=== PATIENT | female | born 1995 | race Caucasian/White ===

== ENCOUNTER → 2017-08-01 13:30 | Outpatient (CLI) | payer MEDICAID, SELFPAY ==
--- NOTE | 2017-08-01 13:30 | DT_ITS ---
This patient was seen during an EMR downtime July 31, 2017 - August 07, 2017. This patient may have a combination of paper and electronic documentation or all paper documentation. All documentation is viewable within the e-chart portion of [facility] for each patient visit.
--- NOTE | 2017-08-01 13:30 | DT_ITS ---
This patient was seen during an EMR downtime July 31, 2017 - August 07, 2017. This patient may have a combination of paper and electronic documentation or all paper documentation. All documentation is viewable within the e-chart portion of [facility] for each patient visit.
[2017-08-06 11:50] LABS: Chlamydia Trachomatis by PCR Negative (Negative); Neisserai gonorrhoeae by PCR Negative (Negative); Probe Check PASS; Sample Adequacy Control PASS; Specimen Processing Control PASS
== END ==
PROVIDERS: Visit Provider Obstetrics & Gynecology
DX: Z34.81 Encounter for supervision of other normal pregnancy, first trimester (principal)
CPT/HCPCS: 87491; 87591

== ENCOUNTER → 2017-08-10 07:52 | Outpatient (CLI) | payer MEDICAID, SELFPAY ==
--- NOTE | 2017-08-10 07:58 | US_ITS ---
STUDY: FIRST TRIMESTER OBSTETRICAL ULTRASOUND REASON FOR EXAM: Female, 22 years old. dating. LMP: June 01, 2017. TECHNIQUE: Transabdominal and Transvaginal PRIOR ULTRASOUND: None. FINDINGS: There is visualization of a single gestational sac in a normal intrauterine position. The mean sac diameter (MSD) measures 4.24 cm, indicating an estimated gestational age (EGA) of 10 weeks, 0 days. The gestational sac shape is within normal limits. There is a visualized yolk sac. The yolk sac measures 4 mm.. The placenta is non-visualized. There is visualization of a live embryo. The crown-rump length (CRL) measures 3.26 cm, indicating an estimated gestational age (EGA) of 10 weeks, 2 days. There is demonstrated cardiac activity with a heart rate of 179 bpm. The estimated gestation age (EGA) by LMP is 10 weeks, 0 days. The estimated date of delivery (CODY) by LMP is March 08, 2017. The estimated gestation age (EGA) by US is 10 weeks, 1 days. The estimated date of delivery (CODY) by US is March 07, 2017. The uterus measures 11.9 cm x 10.8 cm x 8.0 cm. I suspect a 4.1 cm x 5 cm x 3.4 cm fibroid in the uterine fundus. The cervix is closed. The right ovary measures 3.1 cm x 2.2 cm x 2.1 cm. There is no right ovarian cyst. There is no visualized right adnexal mass or complex lesion. The left ovary measures 2.5 cm x 1.9 cm x 2.2 cm.. There is no left ovarian cyst. There is no visualized left adnexal mass or complex lesion. There is no fluid in the cul de sac. US/Init OB < 14Wks US IMPRESSION: Single live intrauterine gestation with mean gestational age of 10 weeks and 1 day. Possible fibroid in the uterine fundus. Electronically Signed: Antelmo Woods MD at 11:43 EDT Tel [phone], Service support ,
== END ==
PROVIDERS: Visit Provider Obstetrics & Gynecology
DX: Z34.81 Encounter for supervision of other normal pregnancy, first trimester (principal)
CPT/HCPCS: 76801

== ENCOUNTER → 2017-08-29 14:57 | Outpatient (CLI) | payer MEDICAID, SELFPAY ==
[2017-08-29 17:46] LABS: Absolute Lymphocyte Count 1.93 X10^3/ul (0.83-4.51); Absolute Neutrophil Count 6.5 X10^3/uL (2.0-7.7); Basophil# 0.02 X10^3/uL; Basophil% 0.2 % (0-1); Eosinophil# 0.05 X10^3/uL; Eosinophils% 0.6 % (0-5); Hematocrit 40.2 % (37-47); Hemoglobin 13.1 g/dl (12.0-15.0); Lymphocyte # 1.93 X10^3/ul (4.0); Lymphocyte % 21.7 % (19-41); Mean Corp Hgb Conc 32.6 g/gl (32-36); Mean Corpuscular Hgb 28.6 pg (27.0-32.0); Mean Corpuscular Volume 87.8 fL (81-99); Mean Platelet Vol. 10.7 fl (6.2-12.0); Monocyte# 0.44 X10^3/uL; Monocyte% 4.9 % (0-10); Neutrophil # 6.46 X10^3/uL (2.7-7.7); Neutrophil % 72.5 % (47-70); Platelet Count 256 K/mm3 (150-450); RBC Distribution Width CV 15.2 % (11.6-14.6); RBC Distribution Width SD 49.1 fl (35.1-43.9); Red Blood Count 4.58 M/mm3 (4.2-5.4); White Blood Count 8.9 K/mm3 (4.4-11.0)
[2017-08-29 17:48] LABS: POSITIVE COUNT NO; POSITIVE DIFFERENTIAL NO; POSITIVE MORPHOLOGY NO
[2017-08-29 17:50] LABS: Color, Urine Straw (Yellow); Glucose, Dipstick Normal (Normal); Ketone-Dipstick 50 mg/dl (Negative); Leukocyte Esterase-Dipstick Negative /ul (Negative); Nitrite-Dipstick Negative (Negative); Occult Blood-Urine Negative /ul (Negative); Protein-Dipstick Negative (Negative); Specific Gravity, Urine 1.015 (1.002-1.030); Urine Bilirubin Dipstick Negative (Negative); Urine Clarity Clear (Clear); Urine Urobilinogen Normal (Normal)
[2017-08-29 17:56] LABS: COTININE Drug Screen Negative (<200 ng/mL)
[2017-08-29 18:04] LABS: Thyroid Stim Hormone (TSH) 0.29 uIU/mL (0.358-3.74)
[2017-08-29 18:10] LABS: Amphetamine Urine VISTA NEGATIVE (<1000 ng/mL); Barbiturate Urine VISTA NEGATIVE (< 200 ng/mL); Benzodiazepine Urine VISTA NEGATIVE (< 200 ng/mL); Cocaine Urine VISTA NEGATIVE (< 300 ng/mL); Ecstacy Urine VISTA NEGATIVE (< 500 ng/mL); Methadone Urine VISTA NEGATIVE (< 300 ng/mL); PCP Urine VISTA NEGATIVE (< 25 ng/mL); THC Urine VISTA NEGATIVE (< 50 ng/mL); Vista UDS pH Range 6
[2017-08-30 10:32] LABS: HIV - WCH Non-Reactive (Nonreactive); Rubella IgG 77.3 IU/mL; Vitamin D,25 Hydroxy 21.5 ng/mL (29.95-100.01)
[2017-09-01 05:02] LABS: Prenatal RPR NONREACTIVE (NONREACTIVE)
[2017-09-01 11:57] LABS: HEPATITIS B SURFACE AG Negative (Negative); Hep C Antibodies <0.1 s/co ratio (0.0-0.9)
[2017-09-01 14:42] LABS: Free T3 2.8 pg/mL (2.18-3.98); T4 Free Direct 1.24 ng/dL (0.76-1.46)
== END ==
PROVIDERS: Visit Provider Obstetrics & Gynecology
DX: Z34.81 Encounter for supervision of other normal pregnancy, first trimester (principal)
CPT/HCPCS: 36415; 80307; 81002; 82306; 84439; 84443; 84481; 85025; 86703; 86762; 86803; 87340

== ENCOUNTER → 2017-09-26 14:42 | Outpatient (CLI) | payer MEDICAID, SELFPAY ==
[2017-10-01 03:06] LABS: AFP MoM Value 1.35 (.); AFP Value-EIA 52.2 ng/mL (.); Comment Report (.); DIA MoM Value 0.27 (.); DIA Value-EIA 48.42 pg/mL (.); DSR (By Age) 1088 (.); DSR (Second Trimester) 10000 (.); Gestat. Age Based On As provided (.); Gestational Age 16.7 WEEKS (.); Insulin Dep Diabetes No (.); Maternal Age At EDD 23.5 yr (.); hCG MoM 0.66 (.); hCG Value 23625 mIU/mL (.)
== END ==
PROVIDERS: Visit Provider Obstetrics & Gynecology
DX: Z34.82 Encounter for supervision of other normal pregnancy, second trimester (principal)
CPT/HCPCS: 36415; 82105; 82677; 84702; 86336

== ENCOUNTER → 2017-12-19 13:21 | Outpatient (CLI) | payer MEDICAID, SELFPAY ==
[2017-12-19 13:54] LABS: Hematocrit 35.2 % (37-47); Hemoglobin 11.5 g/dl (12.0-15.0); Mean Corp Hgb Conc 32.7 g/gl (32-36); Mean Corpuscular Hgb 31.3 pg (27.0-32.0); Mean Corpuscular Volume 95.9 fL (81-99); Mean Platelet Vol. 11.5 fl (6.2-12.0); Platelet Count 182 K/mm3 (150-450); RBC Distribution Width CV 13.6 % (11.6-14.6); RBC Distribution Width SD 45.1 fl (35.1-43.9); Red Blood Count 3.67 M/mm3 (4.2-5.4); White Blood Count 9.3 K/mm3 (4.4-11.0)
[2017-12-19 13:55] LABS: Glucose Challenge Gest 1H 50g 65 mg/dL (70-140); Scan Indicated on CBC? Y/N NO
== END ==
PROVIDERS: Visit Provider Obstetrics & Gynecology
DX: Z34.83 Encounter for supervision of other normal pregnancy, third trimester (principal)
CPT/HCPCS: 82950; 85027

== ENCOUNTER → 2018-02-13 15:41 | Outpatient (CLI) | payer MEDICAID, SELFPAY ==
--- OUTSIDE RECORDS SUMMARY | 2018-05-18 04:46 | XMS RPT_ITS ---
:1995 Author Organization OHIP Care Team Providers Name Role Phone Caterina Oconnor Attending Unavailable Lucas Hooper Referring Unavailable Lucas Hooper Primary Care Unavailable NegreteIgorsummer Attending Unavailable NegreteDafne, Summer Admitting Unavailable Pj Summer Attending Unavailable Pj, Summer Referring Unavailable Primay Care Physicia, No Primary Care Unavailable Pj, Krystyna Attending Unavailable Pj, Summer Referring Unavailable Pj Summer Attending Unavailable Pj Summer Attending Unavailable Neel Ballard Attending Unavailable Primay Care Physicia, No Primary Care Unavailable Neel Ballard Admitting Unavailable Shruthi Aguirre Attending Unavailable Pj Summer Attending Unavailable PROBLEMS PROBLEMS DATE TYPE CONDITION / CODE ATTENDING STATUS SOURCE 02/13/2018 Unknown Z36.85 - Encounter Pj Active [place] for [facility] screening for Hospital Streptococcus B / Repository Z36.85(ICD-10) 12/19/2017 Unknown Z34.83 - Encounter Pj Active [place] for supervision of [facility] other normal Hospital , third Repository trimester / Z34.83(ICD-10) 09/26/2017 Unknown Z34.82 - Encounter Shrutih Aguirre Active [place] for supervision of [facility] , second Repository trimester / Z34.82(ICD-10) 08/29/2017 Unknown Z34.81 - Encounter Pj Active [place] for supervision of [facility] normal Hospital , first Repository trimester / Z34.81(ICD-10) 06/10/2017 Admitting Otitis media, Day, Caterina Active [employer] [employer] [employer] Diagnosis unspecified, left System ear / Repository H66.92(ICD-10) 06/10/2017 Admitting Acute upper Day, [facility] Active [employer] Diagnosis respiratory System infection, Repository unspecified / J06.9(ICD-10) 06/10/2017 Admitting Otalgia, left ear / Day, [facility] Active [facility] Tech Diagnosis H92.02(ICD-10) System Repository PROCEDURES PROCEDURES No Procedure Records FoundRESULTS RESULTS DISCHARGE INSTRUCTION Observed: 03/03/2018 Status: F Source: [place] 1:33 PM [facility] REPOSITORY [facility] Medical Records Department [address] [place] [address] Instructions for Home/Discharge Instructions 03/03/18 1332 MR#: [id number] Acct: [id number] Name: VESTA HERNANDEZ Rep #: [id number] : 1995 22 From: Neel Ballard MD PCP: Care Physician, No Primary Status: ADM IN Discharge Diet: No Restrictions Discharge Activity: May Shower, May Take a Tub Bath May resume sexual activity in: 4-6 weeks Additional Activity Instructions:: Nothing in the vagina for 4-6 weeks. You may return to work/school in 6 weeks. Call your doctor if you observe: Fever of 101 or Higher, Inability to urinate, Inability to have a bowel movement, Using more than one pad per hour Additional Instructions: If you experience any of the following, contact your healthcare provider. * Bleeding that soaks a pad every hour for 2 hours * Unrelieved incision or abdominal pain * Swelling, redness, discharge or bleeding from your incision or episiotomy site * Your incision begins to separate * Problems urinating (including inability to urinate or burning while urinating). * Visual changes * Severe headache * Flu-like symptoms * Pain or redness in one of both of your breasts * Pain, warmth, tenderness or swelling in your legs, especially the calf area * Frequent nausea and vomiting * Symptoms of depression or anxiety If you experience any of the following, call 911 or go to the nearest Emergency Room. * Chest pain * Problems breathing * Seizure activity * Partial or complete paralysis of a body part, slurred speech, weakness or drooping of the face, or a sudden inability to walk or hold your balance Allergies/Adverse Reactions: Allergies No Known Allergies Allergy (Verified 03/03/18 06:56) Medications to take at Discharge Tablet 1 tab PO DAILY 03/03/18 Please Follow Up With: Krystyna Oliva MD - [phone] When: Call to make an appointment with your doctor in 6 weeks. Primary Care Physician: Care Physician,No Primary [Primary Care Provider] - Test Results: Test results from this visit will be discussed in further detail at your follow-up appointment, if applicable. 03/03/18 1333 <Electronically signed by Neel Ballard MD> Date Neel Ballard MD CC: No Primary Care Physician Signed OPERATIVE REPORT Observed: 03/03/2018 Status: F Source: [place] 1:32 PM [facility] REPOSITORY [facility] Medical Records Department [address] [place] [address] [place] [address] Operative Report 03/03/18 1328 MR#: [id number] Acct: [id number] Name: VESTA HERNANDEZ Rep #: [id number] : 1995 22 From: Neel Ballard MD PCP: Care Physician, No Primary Status: ADM IN Y Location: [place] [address] Vaginal Delivery Maternal Presentation: Active Labor Amniotic Membrane Rupture Type: Artificial Amniotic Fluid Description: Clear Final CODY: 03/08/18 Final CODY Source: US <20 weeks Gestational age: 39 Weeks and 2 Days Date of Procedure: 03/03/18 Pre-Operative Diagnosis: IUP Post-Operative Diagnosis: IUP Surgery/ Procedure Performed: Spontaneous Vaginal Delivery Anesthesiologist: Lokesh Ballard Type of Anesthesia: Epidural Description of Procedure: Spontaneous vaginal delivery of a viable male with Apgars of 9/9 from an occiput anterior presentation with 3 vessel cord with velamentous insertion and true knot in the cord. No episiotomy or laceration. Banjo curette used to remove small amount of retained membranous tissue. Sponge counts okay. Delivery physician: Neel Ballard MD. Presentation: Vertex Placental Delivery Description: Spontaneous, Retained, Curettage Placenta Disposition: [facility] Cord Vessel Description: 3 Vessels Cord Gases drawn per routine: ABG Cord Entanglement: None, True Knot(s) - x 1; villamenrous insertion noted Estimated Blood Loss: 250 cc A gender: Male (1 minute): 9 (5 minute): 9 Episiotomy Description: None Laceration: None Medications given after delivery: IV Pitocin Complications: None 03/03/18 1332 <Electronically signed by Neel Ballard MD> Date Neel Ballard MD CC: No Primary Care Physician; Neel Ballard MD Signed CBC-COMPLETE BLOOD CNT Collected: 03/03/2018 Status: F Source: [place] NO DIFF 7:50 AM [facility] REPOSITORY TYPE CODE TESTS RESULT OUT OF RANGE REFERENCE UNITS LAB L100.1000 4.4-11.0 K/mm3 High WBC 13.4 LAB L100.1200 4.2-5.4 M/mm3 Low RBC 3.84 LAB L100.1300 12.0-15.0 g/dl Low HGB 11.8 LAB L100.1400 37-47 % Low HCT 35.2 LAB L100.1500 81-99 fL Normal MCV 91.7 LAB L100.1600 27.0-32.0 pg Normal MCH 30.7 LAB L100.1700 32-36 g/gl Normal MCHC 33.5 LAB L100.1810 11.6-14.6 % Normal RDW CV 14.4 LAB L100.1820 35.1-43.9 fl High RDW SD 48.1 LAB L100.1900 150-450 K/mm3 Normal PLT 172 LAB L100.2000 6.2-12.0 fl Normal MPV 10.9 Performed By: #### L100.0500 #### [facility] [address] [place], [address] TYPE AND SCREEN Collected: 03/03/2018 Status: F Source: [place] 7:50 AM [facility] REPOSITORY Order Comment: Reason for Type AND Screen/Red Cells: ROUTINE TYPE CODE TESTS RESULT OUT OF RANGE REFERENCE UNITS LAB B10.0800 O Normal BLOOD TYPE GEL POSITIVE LAB B100.4000 Normal Antibody NEGATIVE Screen Performed By: #### B101.7450 #### [facility] [address] [facility] [place], [address] Observed: 02/13/2018 Status: F Source: [place] CULTURE, GROUP B 11:00 AM [facility] STREPTOCOCCUS REPOSITORY Comments: VAGINAL/RECTAL BECK Culture Group B Beta Streptococcus is not isolated. Performed By: #### M100.1800 #### [facility] [address] [place], [address] GLUCOSE CHALLENGE GEST Collected: 12/19/2017 Status: F Source: [place] 1H 50G 11:05 AM [facility] REPOSITORY TYPE CODE TESTS RESULT OUT OF RANGE REFERENCE UNITS LAB L501.0250 70-140 mg/dL Low GLU GEST 65 50g 1H Performed By: #### L501.0250 #### [facility] [address] [place], [place], [address] CBC-COMPLETE BLOOD CNT Collected: 12/19/2017 Status: F Source: [place] NO DIFF 11:05 AM [facility] REPOSITORY TYPE CODE TESTS RESULT OUT OF RANGE REFERENCE UNITS LAB L100.1000 4.4-11.0 K/mm3 Normal WBC 9.3 LAB L100.1200 4.2-5.4 M/mm3 Low RBC 3.67 LAB L100.1300 12.0-15.0 g/dl Low HGB 11.5 LAB L100.1400 37-47 % Low HCT 35.2 LAB L100.1500 81-99 fL Normal MCV 95.9 LAB L100.1600 27.0-32.0 pg Normal MCH 31.3 LAB L100.1700 32-36 g/gl Normal MCHC 32.7 LAB L100.1810 11.6-14.6 % Normal RDW CV 13.6 LAB L100.1820 35.1-43.9 fl High RDW SD 45.1 LAB L100.1900 150-450 K/mm3 Normal PLT 182 LAB L100.2000 6.2-12.0 fl Normal MPV 11.5 Performed By: #### L100.0500 #### [facility] [address] [place], [place], [address] AFP TETRA QUAD Collected: 09/26/2017 Status: F Source: [place] SCREEN 2:43 PM [facility] REPOSITORY Order Comment: Is Patient ? Y Enter Completed Weeks of Gestation: 16.5 Patient's Weight (LBS.): 135 Race: / White Number of Fetuses: 1 Is Patient Insulin-Dependent Diabetic?: N TYPE CODE TESTS RESULT OUT OF REFERENCE UNITS RANGE LAB L3290.110 . 0 TEST RESULTS: Normal *Screen Negative* LAB L3290.120 . WEEKS 0 GESTATIONAL AGE Normal 16.7 LAB L3290.130 . 0 GEST AGE FROM As Normal provided LAB L3290.140 . yr 1 MATRNL AGE @CODY Normal 23.5 LAB L3290.150 . 0 RACE Normal LAB L3290.160 . lbs 0 WEIGHT Normal 135 LAB L3290.170 . 0 INS DEP DIABETE No Normal LAB L3290.180 . 0 MULT GESTATION No Normal LAB L3290.190 . ng/mL 0 AFP VALUE-EIA Normal 52.2 LAB L3290.200 . 0 AFP MOM VALUE Normal 1.35 LAB L3290.210 . mIU/mL 0 HCG VALUE Normal 75834 LAB L3290.220 . 0 HCG MOM Normal 0.66 LAB L3290.230 . ng/mL 0 UE3 VALUE Normal 1.14 LAB L3290.240 . 0 UE3 MOM Normal 1.20 LAB L3290.250 . pg/mL 0 NIVIA VALUE-EIA Normal 48.42 LAB L3290.260 . 0 NIVIA MOM VALUE Normal 0.27 LAB L3290.270 . 0 OSBR RISK Normal 4151 LAB L3290.280 . 0 DSR 2ND TRIMEST Normal 43120 LAB L3290.290 . 0 DSR (BY AGE) Normal 1088 LAB L3290.310 . 0 T18 RISK Normal Not increased LAB L3290.320 . 0 T18 (BY AGE) Normal 1:4238 LAB L3290.330 . 0 INTERPRETATION Normal Comment Result Comment: Interpretation: Screen Negative This result is screen negative for OSB, Down Syndrome and Trisomy 18. The AFP MoM and patient specific risks calculated are based on the gestational age and the clinical information provided. This test can identify up to 80% of open neural tube defects. Closed neural tube defects and some open defects may not be detected by this test. The combination of maternal age, AFP, hCG, uE3, and NIVIA identifies 75-80% of Down Syndrome. The combination of maternal age, AFP, hCG and uE3 identifies 60% of Trisomy 18 pregnancies. The [employer] recommends amniocentesis be offered to women age 35 and older. Recalculations are not recommended when gestational dating by LMP and ultrasound are within 10 days. Performed By: #### L3290.0100 #### [facility] (refer to report for specific site) refer to report for address and phone number URINE DRUG SCREEN Collected: 08/29/2017 Status: F Source: [place] (VISTA) 3:05 PM [facility] REPOSITORY Order Comment: List of Drugs Taken or Suspected? UNK TYPE CODE TESTS RESULT OUT OF RANGE REFERENCE UNITS LAB L505.0075 TO BE Normal CONFIRMED Result Comment: CONFIRMATORY TESTING FOR ALL POSITIVE URINE DRUG SCREEN RESULTS WILL ONLY BE SENT OUT UPON PHYSICIAN ORDER. VISTA Urine Drug Screen methods provide only preliminary analytical test results. A more specific alternate chemical method must be used in order to obtain a confirmed analytical result. Gas chromatography/mass spectrometery (GC/MS) is the preferred confirmatory method. Clinical consideration and professional judgement should be applied to any drug of abuse test result, particularly when preliminary positive results are used. URINE TCA TESTING MUST BE ORDERED SEPARATELY. USE TEST MNEMONIC: [facility] LAB L505.5005 VISTA UDS PH 6 Normal LAB L505.5015 <1000 ng/mL AMPHETAMINES Normal NEGATIVE LAB L505.5025 < 200 ng/mL BARBITIURATES Normal NEGATIVE LAB L505.5035 < 200 ng/mL BENZODIAZIPINE Normal NEGATIVE LAB L505.5045 < 300 ng/mL COCAINE Normal NEGATIVE LAB L505.5055 < 500 ng/mL ECSTACY Normal NEGATIVE LAB L505.5065 < 300 ng/mL METHADONE Normal NEGATIVE LAB L505.5075 < 300 ng/mL OPIATES Normal NEGATIVE LAB L505.5085 < 25 ng/mL PCP Normal NEGATIVE LAB L505.5095 < 50 ng/mL THC Normal NEGATIVE Performed By: #### L505.5000, L505.6240 #### [facility] [address] [place], [place], [id number] NICOTINE URINE DRUG Collected: 08/29/2017 Status: F Source: [place] SCREEN 3:05 PM [facility] REPOSITORY Order Comment: List of Drugs Taken or Suspected? UNK TYPE CODE TESTS RESULT OUT OF RANGE REFERENCE UNITS LAB L505.6250 TO BE Normal CONFIRMED Result Comment: CONFIRMATORY TESTING FOR ALL POSITIVE URINE DRUG SCREEN RESULTS WILL ONLY BE SENT OUT UPON PHYSICIAN ORDER. The results of Urine Drug Screen methods provide only preliminary analytical test results. A more specific alternate chemical method must be used in order to obtain a confirmed analytical result. Gas chromatography/mass spectrometery (GC/MS) is the preferred confirmatory method. Clinical consideration and professional judgement should be applied to any drug of abuse test result, particularly when preliminary positive results are used. LAB L505.6270 <200 ng/mL Normal COT DRG Negative SCREEN Result Comment: Cotinine is the first-stage metabolite of Nicotine. Performed By: #### L505.5000, L505.6240 #### [facility] [address] [place], [place], [address] CBC W/DIFF, AUTOMATED Collected: 08/29/2017 Status: F Source: [place] 3:05 PM [facility] REPOSITORY TYPE CODE TESTS RESULT OUT OF RANGE REFERENCE UNITS LAB L100.1000 4.4-11.0 K/mm3 Normal WBC 8.9 LAB L100.1200 4.2-5.4 M/mm3 Normal RBC 4.58 LAB L100.1300 12.0-15.0 g/dl Normal HGB 13.1 LAB L100.1400 37-47 % Normal HCT 40.2 LAB L100.1500 81-99 fL Normal MCV 87.8 LAB L100.1600 27.0-32.0 pg Normal MCH 28.6 LAB L100.1700 32-36 g/gl Normal MCHC 32.6 LAB L100.1810 11.6-14.6 % High RDW CV 15.2 LAB L100.1820 35.1-43.9 fl High RDW SD 49.1 LAB L100.1900 150-450 K/mm3 Normal PLT 256 LAB L100.2000 6.2-12.0 fl Normal MPV 10.7 LAB L100.2100 47-70 % High NEUT% 72.5 LAB L100.2200 19-41 % Normal LY% 21.7 LAB L100.2300 0-10 % Normal MONO% 4.9 LAB L100.2400 0-5 % Normal EO% 0.6 LAB L100.2500 0-1 % Normal BASO% 0.2 LAB L100.2550 0.0-0.9 % Normal IM GRAN % 0.100 Result Comment: IG% - Immature Granulocytes (promyelocytes, myelocytes and metamyelocytes) > 1% indicates that a LEFT SHIFT is Present. LAB L100.2620 2.0-7.7 X10 3/uL Normal Absolute Neut 6.5 LAB L100.2720 0.83-4.51 X10 3/ul Normal Absolute Lymph 1.93 Performed By: #### L100.0100 #### [facility] [address] [place], [place], [id number] URINALYSIS, ROUTINE Collected: 08/29/2017 Status: F Source: [place] (DIPSTICK) 3:05 PM [facility] REPOSITORY Order Comment: How was Urine Obtained? Urine, Random TYPE CODE TESTS RESULT OUT OF RANGE REFERENCE UNITS LAB L400.3000 Yellow COLOR Normal Straw LAB L400.3050 Clear Normal CLARITY Clear LAB L400.3200 Normal mg/dl Normal GLUCOSE, UR Normal LAB L400.3300 Negative mg/dL Normal BILIRUBIN URINE Negative LAB L400.3400 Negative mg/dl High 50 KETONE UR LAB L400.3465 1.002-1.030 Normal SP.GR. DIPSTX 1.015 LAB L400.3550 5.0 - 8.0 pH UR Normal 8.0 LAB L400.3600 Negative mg/dl PROT Normal DIPSTX Negative LAB L400.3700 Normal mg/dl Normal UROBILI Normal LAB L400.3750 Negative Normal NITRITE UR Negative LAB L400.3780 Negative /ul Normal OCCULT BLOOD-UR Negative LAB L400.3800 Negative /ul LEUK Normal ESTERASE Negative Performed By: #### L400.2010 #### [facility] [address] [place], [address] THYROID STIM HORMONE Collected: 08/29/2017 Status: F Source: [place] (TSH) 3:05 PM [facility] REPOSITORY Order Comment: PLEASE ADD TO BLOOD FROM 08/29/17. RACK TG4 6 N TYPE CODE TESTS RESULT OUT OF RANGE REFERENCE UNITS LAB L501.9520 0.358-3.74 uIU/mL Low TSH 0.29 Performed By: #### L501.9520, L501.45337, L506.0400 #### [facility] [facility] [place], [address] FREE T3 Collected: 08/29/2017 Status: F Source: [place] 3:05 PM [facility] REPOSITORY Order Comment: PLEASE ADD TO BLOOD FROM 08/29/17. RACK TG4 6 N TYPE CODE TESTS RESULT OUT OF RANGE REFERENCE UNITS LAB L501.60587 2.18-3.98 pg/mL Normal FREE T3 2.8 Performed By: #### L501.9520, L501.70303, L506.0400 #### [facility] [address] [facility] [place], [address] T4 FREE DIRECT Collected: 08/29/2017 Status: F Source: [place] 3:05 PM [facility] REPOSITORY Order Comment: PLEASE ADD TO BLOOD FROM 08/29/17. RACK TG4 6 N TYPE CODE TESTS RESULT OUT OF RANGE REFERENCE UNITS LAB L506.0400 0.76-1.46 ng/dL Normal T4 FREE 1.24 DIRECT Performed By: #### L501.9520, L501.19449, L506.0400 #### [facility] [address] [place], [address] T AND S-NO Collected: 08/29/2017 Status: F Source: [place] CHARGE W/PNP 3:05 PM [facility] REPOSITORY Order Comment: Reason for Type AND Screen/Red Cells: Surgery? N TYPE CODE TESTS RESULT OUT OF RANGE REFERENCE UNITS LAB B10.0800 O Normal BLOOD POSITIVE TYPE GEL LAB B100.4050 Normal Ab SCREEN NEGATIVE GEL Performed By: #### B100.7550 #### [facility] [address] [place], [address] VITAMIN D,25 HYDROXY Collected: 08/29/2017 Status: F Source: [place] 3:05 PM [facility] REPOSITORY TYPE CODE TESTS RESULT OUT OF REFERENCE UNITS RANGE LAB L506.1000 29.95-100.01 ng/mL Low Vitamin D 21.5 25-OH Result Comment: Vitamin D 25(OH) Status Range Deficiency <20 ng/mL (50nmol/L) Insuffciency 20 - 30 ng/mL (50 - 75 nmol/L) Sufficiency 30 - 100 ng/mL (75 - 250 nmol/L) Toxicity >100 ng/mL (>250 nmol/L) Performed By: #### L506.1000, L509.4000, L3890.6005 #### [facility] [address] [place], [address] RUBELLA IGG Collected: 08/29/2017 Status: F Source: [place] 3:05 PM [facility] REPOSITORY TYPE CODE TESTS RESULT OUT OF RANGE REFERENCE UNITS LAB L509.4000 IU/mL Normal Rubella IgG 77.3 Result Comment: Antibody results Interpretation of Immune Status < 5 IU/ml Presumed Non-immune 5 - < 10 IU/ml Equivocal > or = 10 IU/ml Presumed Immune Performed By: #### L506.1000, L509.4000, L3890.6005 #### [facility] [address] [place], [place], [address] HIV - [facility] Collected: 08/29/2017 Status: F Source: [place] 3:05 PM [facility] REPOSITORY TYPE CODE TESTS RESULT OUT OF RANGE REFERENCE UNITS LAB L3890.6005 Nonreactive Normal HIV - [facility] Non-Reactive Performed By: #### L506.1000, L509.4000, L3890.6005 #### [facility] [address] [place], [place], [address] RPR Collected: 08/29/2017 Status: F Source: [place] 3:05 PM [facility] REPOSITORY TYPE CODE TESTS RESULT OUT OF REFERENCE UNITS RANGE LAB L700.5100 NONREACTIVE Normal RPR NONREACTIVE Performed By: #### L700.5100 #### [facility] [address] [place], [place], [address] HEPATITIS B SURFACE Collected: 08/29/2017 Status: F Source: [place] AG 3:05 PM [facility] REPOSITORY TYPE CODE TESTS RESULT OUT OF RANGE REFERENCE UNITS LAB L3100.0400 Negative Normal HB Negative SURF AG Result Comment: Performed at: [facility] [id number] Reservation Sales Agent: Gopi Covington PhD, Phone: [phone] Performed By: #### L3100.0390, L3100.0625 #### [facility] (refer to report for specific site) refer to report for address and phone number HEPATITIS C ANTIBODIES Collected: 08/29/2017 Status: F Source: [place] 3:05 PM [facility] REPOSITORY TYPE CODE TESTS RESULT OUT OF RANGE REFERENCE UNITS LAB L3100.0650 0.0-0.9 s/co ratio Normal HEP C AB <0.1 Result Comment: Negative: < 0.8 Indeterminate: 0.8 - 0.9 Positive: > 0.9 The CDC recommends that a positive HCV antibody result be followed up with a HCV Nucleic Acid Amplification test (381541). Performed By: #### L3100.0390, L3100.0625 #### [facility] (refer to report for specific site) refer to report for address and phone number DOWNTIME REPORT Observed: 08/17/2017 Status: F Source: [place] 2:[address] [facility] Medical Records Department [address] [place] [address] Downtime Report MR#: [id number] Acct: [id number] Name: VESTA HERNANDEZ Rep #: [id number] : 1995 22 From: Paul Helton PCP: Status: REG CLI This patient was seen during an EMR downtime July 31, 2017 - August 07, 2017. This patient may have a combination of paper and electronic documentation or all paper documentation. All documentation is viewable within the e-chart portion of [employer] for each patient visit. DOWNTIME REPORT Observed: 08/17/2017 Status: F Source: [place] 2:[address] [facility] Medical Records Department [address] [place] [address] Downtime Report MR#: [id number] Acct: [id number] Name: VESTA HERNANDEZ Rep #: [id number] : 1995 22 From: Paul Helton PCP: Status: REG CLI This patient was seen during an EMR downtime July 31, 2017 - August 07, 2017. This patient may have a combination of paper and electronic documentation or all paper documentation. All documentation is viewable within the e-chart portion of [employer] for each patient visit. INIT OB < 14WKS US Observed: 08/10/2017 Status: F Source: [place] 7:[address] [facility] Imaging Services [address] [place] [address] Init OB < 14Wks US MR#: [id number] Acct: [id number] Name: MATY HERNANDEZNN Brett Rep #: [id number] : 1995 F 21 From: Antelmo Woods MD PCP: Status: REG CLI Study: Init OB < 14Wks US Date of Exam: 08/10/17 Exam# [id number] Ordering Dr: Krystyna Covarrubias MD STUDY: FIRST TRIMESTER OBSTETRICAL ULTRASOUND REASON FOR EXAM: Female, 22 years old. dating. LMP: June 01, 2017. TECHNIQUE: Transabdominal and Transvaginal PRIOR ULTRASOUND: None. FINDINGS: There is visualization of a single gestational sac in a normal intrauterine position. The mean sac diameter (MSD) measures 4.24 cm, indicating an estimated gestational age (EGA) of 10 weeks, 0 days. The gestational sac shape is within normal limits. There is a visualized yolk sac. The yolk sac measures 4 mm.. The placenta is non-visualized. There is visualization of a live embryo. The crown-rump length (CRL) measures 3.26 cm, indicating an estimated gestational age (EGA) of 10 weeks, 2 days. There is demonstrated cardiac activity with a heart rate of 179 bpm. The estimated gestation age (EGA) by LMP is 10 weeks, 0 days. The estimated date of delivery (CODY) by LMP is March 08, 2017. The estimated gestation age (EGA) by US is 10 weeks, 1 days. The estimated date of delivery (CODY) by US is March 07, 2017. The uterus measures 11.9 cm x 10.8 cm x 8.0 cm. I suspect a 4.1 cm x 5 cm x 3.4 cm fibroid in the uterine fundus. The cervix is closed. The right ovary measures 3.1 cm x 2.2 cm x 2.1 cm. There is no right ovarian cyst. There is no visualized right adnexal mass or complex lesion. The left ovary measures 2.5 cm x 1.9 cm x 2.2 cm.. There is no left ovarian cyst. There is no visualized left adnexal mass or complex lesion. There is no fluid in the cul de sac. US/Init OB < 14Wks US IMPRESSION: Single live intrauterine gestation with mean gestational age of 10 weeks and 1 day. Possible fibroid in the uterine fundus. Electronically Signed: Antelmo Woods MD at 11:43 EDT Tel [phone], Service support , CC: Krystyna Oliva MD Field Education Director: Signed CT/NG [facility] BY PCR Collected: 08/01/2017 Status: F Source: [place] 1:30 PM [facility] REPOSITORY Order Comment: RESULT(S) PREVIOUSLY REPORTED ON MANUAL REQUISITION DURING DOWNTIME. TYPE CODE TESTS RESULT OUT OF RANGE REFERENCE UNITS LAB L8200.2100 Negative Normal Chlam Negative Trac PCR LAB L8200.2200 Negative Normal NG by Negative PCR Performed By: #### L8200.2000 #### [facility] [facility] [address] [place], [address] ALLERGIES ALLERGIES DATE TYPE / CODE NAME / CODE REACTION SEVERITY SOURCE 03/03/2018 Drug No Known Unknown [facility] Allergy/4160 Allergies/F00 Hospital 23835(SNOMED [id number](RXNOR Repository CT) M) ENCOUNTERS ENCOUNTERS ADMIT/DISCHARGE ACCOUNT NUMBER ADMITTING ENCOUNTER LOCATION SOURCE CLASS 03/05/2018 [id number] [facility] ding:WP Repository 03/03/2018/03/05/19 [id number] [facility] Inpatient [address] ding:WPRoom: Repository [id number]: 1 02/13/2018 [id number] [facility] ding:LABSPEC Repository 12/19/2017 [id number] [facility] ding:LABSPEC Repository 09/26/2017 [id number] [facility] ding:WOBLAB Repository 08/29/2017 [id number] [facility] ding:WOBLAB Repository 08/10/2017 [id number] [facility] ding:OPUS Repository 08/01/2017 [id number] [facility] ding:WOBLAB Repository 06/10/2017 [id number] [facility] [place] [address] EDRoom: 2A System 444Bed: Repository [id number] PAYERS PAYERS ENCOUNTER GUARANTOR PAYER SUBSCRIBER SOURCE 03/05/2018 [facility] Primary [facility]STA [place] [id number] Insurance:CARESOURCEP CUNNINGHAMDOB: Community BACK ADEN garcia Number: [id number] [id number] Repository [address]Lgb: ([phone]) Date:2018-03-02P O [phone] () [address]ATTN[place] [address]AM: 03/05/2018 Secondary NOT GIVENUNK [place] Insurance:SELF PAY [facility] Number: Effective Repository Date:2018-03-02 03/03/2018 [facility] Primary [facility]STA [place] [id number] Insurance:CARESOURCEP CUNNINGHAMDOB: Community BACK ADEN garcia Number: [id number] [place], [place] [id number] Repository [address]Xzr: ([phone]) Date:2018-03-03P O [phone] () [address]ATTN[place] [address]DZ: 03/03/2018 Secondary NOT GIVENUNK [place] Insurance:SELF PAY [facility] Number: Effective Repository Date:2018-03-03 02/13/2018 [facility] Primary VESTA [place] [id number] Insurance:CARESOURCEP CUNNINGHAMDOB: Community [facility] ADEN garcia Number: [id number] [place], [place] [id number] Repository [address]Xcv: ([phone]) Date:2018-02-13P O [phone] () [address]ATTN: [place] [address]GQ: 02/13/2018 Secondary NOT GIVENUNK [place] Insurance:SELF PAY [facility] Number: Effective Repository Date:2018-02-13 12/19/2017 [facility] Primary VESTA [place] [id number] Insurance:CARESOURCEP CUNNINGHAMDOB: Community BACK ADEN garcia Number: [id number] [place], [place] [id number] Repository [address]Bec: ([phone]) Date:2017-12-19P O [phone] (HP) [address]ATTN: [place] [address]JZ: 12/19/2017 Secondary NOT GIVENUNK [place] Insurance:SELF PAY [facility] Number: Effective Repository Date:2017-12-19 09/26/2017 [facility] Primary [facility] [place] [id number] Insurance:CARESOURCEP CUNNINGHAMDOB: [facility] Number: [id number], [id number] Repository [place] [address]Usu: Date:2017-09-26 [address]ATTN: CLAIMS (HP) [place] [address]TR: 09/26/2017 Secondary NOT GIVENUNK [place] Insurance:SELF PAY [facility] Number: Effective Repository Date:2017-09-26 08/29/2017 [facility] Primary [facility] [place] [id number] Insurance:CARESOURCEP CUNNINGHAMDOB: [facility] Number: [id number] VA Medical Center, [id number] [place]ository [place] [address]Dki: Date:2017-08-29P O [address]ATTN: CLAIMS (HP) [place] [address]NJ: 08/29/2017 Secondary NOT GIVENUNK [place] Insurance:SELF PAY [facility] Number: Effective Repository Date:2017-08-29 08/10/2017 [facility] Primary [facility] [place] [id number] Insurance:CARESOURCEP CUNNINGHAMDOB: [facility] Number: [id number] VA Medical Center, [id number] [place]ository [place] [address]Vai: Date:2017-08-04P O [address]ATTN: CLAIMS ([place] [address]EG: 08/10/2017 Secondary NOT GIVENUNK [place] Insurance:SELF PAY [facility] Number: Effective Repository Date:2017-08-04 08/01/2017 [facility] Primary [id number] Insurance:CARESOURC C[facility]NINGMATHER HOSPITALDOB: [facility] Number: [id number] [facility], [id number] [address]Duu: Date:2017-08-01P O [address]ATTN: CLAIMS () [place] [address]XA: 08/01/2017 Secondary NOT GIVENUNK [place]yn Insurance:SELF PAY [facility] Number: Effective Repository Date:2017-08-01 06/10/2017 [facility]Self [facility] Number: [id number] [facility] Effective Date: [place], [place] [address]Dlg: ()
== END ==
PROVIDERS: Visit Provider Obstetrics & Gynecology
DX: Z36.85 Encounter for antenatal screening for Streptococcus B (principal)
CPT/HCPCS: 87081

== ENCOUNTER 2018-03-03 07:29 | Inpatient (IN) | payer MEDICAID, SELFPAY ==
[2018-03-03 06:55] VITALS: BMI 25.8
[2018-03-03] MEDS: Lactated Ringers 1,000 ML 50 ML IV ×2 (07:25→12:38)
[2018-03-03 08:09] LABS: Hematocrit 35.2 % (37-47); Hemoglobin 11.8 g/dl (12.0-15.0); Mean Corp Hgb Conc 33.5 g/gl (32-36); Mean Corpuscular Hgb 30.7 pg (27.0-32.0); Mean Corpuscular Volume 91.7 fL (81-99); Mean Platelet Vol. 10.9 fl (6.2-12.0); Platelet Count 172 K/mm3 (150-450); RBC Distribution Width CV 14.4 % (11.6-14.6); RBC Distribution Width SD 48.1 fl (35.1-43.9); Red Blood Count 3.84 M/mm3 (4.2-5.4); White Blood Count 13.4 K/mm3 (4.4-11.0)
[2018-03-03 08:11] LABS: Scan Indicated on CBC? Y/N NO
[2018-03-03] MEDS: Oxytocin 30 units/NS 500 ml 30 UNITS/500 ML IV.SOLN IV (10:45)
[2018-03-03] MEDS: Oxytocin 30 units/NS 500 ml 30 UNITS/500 ML IV.SOLN 334 UNITS IV (13:14)
--- NOTE | 2018-03-03 13:28 | PCM.OB.VAG ---
Vaginal Delivery Maternal Presentation: Active Labor Amniotic Membrane Rupture Type: Artificial Amniotic Fluid Description: Clear Final CODY: 03/08/18 Final CODY Source: US <20 weeks Gestational age: 39 Weeks and 2 Days Date of Procedure: 03/03/18 Pre-Operative Diagnosis: IUP Post-Operative Diagnosis: IUP Surgery/ Procedure Performed: Spontaneous Vaginal Delivery Anesthesiologist: Lokesh Ballard Type of Anesthesia: Epidural Description of Procedure: Spontaneous vaginal delivery of a viable male with Apgars of 9/9 from an occiput anterior presentation with 3 vessel cord with velamentous insertion and true knot in the cord. No episiotomy or laceration. Banjo curette used to remove small amount of retained membranous tissue. Sponge counts okay. Delivery physician: Neel Ballard MD. Presentation: Vertex Placental Delivery Description: Spontaneous, Retained, Curettage Placenta Disposition: [facility] Cord Vessel Description: 3 Vessels Cord Gases drawn per routine: ABG Cord Entanglement: None, True Knot(s) - x 1; villamenrous insertion noted Estimated Blood Loss: 250 cc A gender: Male (1 minute): 9 (5 minute): 9 Episiotomy Description: None Laceration: None Medications given after delivery: IV Pitocin Complications: None
--- NOTE | 2018-03-03 13:32 | PCM.DCVAG ---
Discharge Diet: No Restrictions Discharge Activity: May Shower, May Take a Tub Bath May resume sexual activity in: 4-6 weeks Additional Activity Instructions:: Nothing in the vagina for 4-6 weeks. You may return to work/school in 6 weeks. Call your doctor if you observe: Fever of 101 or Higher, Inability to urinate, Inability to have a bowel movement, Using more than one pad per hour Additional Instructions: If you experience any of the following, contact your healthcare provider. Bleeding that soaks a pad every hour for 2 hours Unrelieved incision or abdominal pain Swelling, redness, discharge or bleeding from your incision or episiotomy site Your incision begins to separate Problems urinating (including inability to urinate or burning while urinating). Visual changes Severe headache Flu-like symptoms Pain or redness in one of both of your breasts Pain, warmth, tenderness or swelling in your legs, especially the calf area Frequent nausea and vomiting Symptoms of depression or anxiety If you experience any of the following, call 911 or go to the nearest Emergency Room. Chest pain Problems breathing Seizure activity Partial or complete paralysis of a body part, slurred speech, weakness or drooping of the face, or a sudden inability to walk or hold your balance Allergies/Adverse Reactions: Allergies No Known Allergies Allergy (Verified 03/03/18 06:56) Medications to take at Discharge Tablet 1 tab PO DAILY 03/03/18 Please Follow Up With: Krystyna Oliva MD - [phone] When: Call to make an appointment with your doctor in 6 weeks. Primary Care Physician: Care Physician,No Primary [Primary Care Provider] - Test Results: Test results from this visit will be discussed in further detail at your follow-up appointment, if applicable.
--- NOTE | 2018-03-03 13:33 | DCINST_ITS ---
Discharge Diet: No Restrictions Discharge Activity: May Shower, May Take a Tub Bath May resume sexual activity in: 4-6 weeks Additional Activity Instructions:: Nothing in the vagina for 4-6 weeks. You may return to work/school in 6 weeks. Call your doctor if you observe: Fever of 101 or Higher, Inability to urinate, Inability to have a bowel movement, Using more than one pad per hour Additional Instructions: If you experience any of the following, contact your healthcare provider. * Bleeding that soaks a pad every hour for 2 hours * Unrelieved incision or abdominal pain * Swelling, redness, discharge or bleeding from your incision or episiotomy site * Your incision begins to separate * Problems urinating (including inability to urinate or burning while urinating). * Visual changes * Severe headache * Flu-like symptoms * Pain or redness in one of both of your breasts * Pain, warmth, tenderness or swelling in your legs, especially the calf area * Frequent nausea and vomiting * Symptoms of depression or anxiety If you experience any of the following, call 911 or go to the nearest Emergency Room. * Chest pain * Problems breathing * Seizure activity * Partial or complete paralysis of a body part, slurred speech, weakness or drooping of the face, or a sudden inability to walk or hold your balance Allergies/Adverse Reactions: Allergies No Known Allergies Allergy (Verified 03/03/18 06:56) Medications to take at Discharge Tablet 1 tab PO DAILY 03/03/18 Please Follow Up With: Krystyna Oliva MD - [phone] When: Call to make an appointment with your doctor in 6 weeks. Primary Care Physician: Care Physician,No Primary [Primary Care Provider] - Test Results: Test results from this visit will be discussed in further detail at your follow- up appointment, if applicable.
[2018-03-03] MEDS: Oxytocin 30 units/NS 500 ml 30 UNITS/500 ML IV.SOLN 167 UNITS IV (13:44)
[2018-03-03 19:45] VITALS: BP 126/82; PULSE 99; RESP 16; TEMP 37.1; O2SAT 97
[2018-03-04 00:10] VITALS: BP 114/74; PULSE 89; RESP 14; TEMP 36.4; O2SAT 98
[2018-03-04] MEDS: Ibuprofen 600 MG Tablet PO (04:16)
[2018-03-04 04:22] VITALS: BP 124/87; PULSE 70; RESP 16; TEMP 36.6; O2SAT 98
[2018-03-04 07:30] VITALS: BP 111/64; PULSE 88; RESP 16; TEMP 36.4; O2SAT 96
--- NOTE | 2018-03-04 08:58 | PCM.PN.OB ---
Subjective: Patient without complaints. Minimal vaginal bleeding. Breast-feeding going well. Wants to go home later today if baby is able to go. - Physical Exam Vital Signs Temp Pulse Resp BP Pulse Ox 97.6 F L 88 16 111/64 96 03/04/18 07:30 03/04/18 07:30 03/04/18 07:30 03/04/18 07:30 03/04/18 07:30 Oxygen Delivery Method Room Air Weight: 160 lb Body Mass Index (BMI) 25.8 Intake and Output for Last 24 Hours 03/02/18 03/03/18 03/04/18 23:59 23:59 23:59 Intake Total 2050 / 2050 Output Total 1400 / 1400 Balance 651 / 651 Medical Necessity - Tobacco Use Smoking Status: Never smoker Assessment/Plan Doing well. Will release to home with routine instructions.
--- NOTE | 2018-03-04 11:33 | NURSING ---
Report given to Yanni Andrew RN. She will assume care of patient at this time.
[2018-03-04 12:01] VITALS: BP 105/66; PULSE 96; RESP 18; TEMP 37.1; O2SAT 98
[2018-03-04 16:44] VITALS: BP 119/82; PULSE 87; RESP 18; TEMP 36.9; O2SAT 98
[2018-03-04 19:25] VITALS: BP 124/88; PULSE 81; RESP 16; TEMP 36.7
[2018-03-05 01:15] VITALS: BP 120/70; PULSE 82; RESP 16; TEMP 37
[2018-03-05 08:00] VITALS: BP 107/77; PULSE 81; RESP 18; TEMP 36.8
--- NOTE | 2018-03-05 08:01 | PCM.PN.OB ---
Subjective: Doing well. Passed a large clot yesterday, but bleeding slowed since then. Denies significant pain. nursing well, but does have a small tongue tie. Vesta has a cold sore, she covers this with a bandaid and started PO Valtrex. Objective: avss - Physical Exam General: Alert, Oriented x3, Cooperative, No apparent distress HEENT: Atraumatic, Normocephalic Lungs: Clear to auscultation, Normal air movement Cardiovascular: Regular rate, Regular Rhythm, Normal S1, Normal S2 Abdomen: Soft, Non Tender, Non-Distended, - - Fundus firm and nontender Extremities: No edema, No Calf Tenderness Neurological: Neuro grossly intact Psych/Mental Status: Normal Affect, Appropriate, Alert and oriented to time, place, person, mood and affect Vital Signs Temp Pulse Resp BP Pulse Ox 98.6 F 82 16 120/70 98 03/05/18 01:15 03/05/18 01:15 03/05/18 01:15 03/05/18 01:15 03/04/18 16:44 Oxygen Delivery Method Room Air Weight: 72.575 kg Body Mass Index (BMI) 25.8 Intake and Output for Last 24 Hours 03/03/18 03/04/18 03/05/18 23:59 23:59 23:59 Intake Total 2050 Output Total 1400 / 1400 Balance 651 / 651 Medical Necessity - Tobacco Use Smoking Status: Never smoker Assessment/Plan 22yo PPD#2 s/p doing well. -Routine care -Rh positive -h/o oral HSV - continue covering lesion, Valtrex - -d/c home later today
--- NOTE | 2018-03-09 13:39 | NURSING ---
Follow up phone call done. Patient doing well and baby eating well and voiding and stooling. Remembers Caprice being extra helpful.
== END 2018-03-05 11:45 | disposition home or self-care (01) | DRG 560 ==
LOC: WP 03-05 08:07 → WPOUT 03-05 09:26
PROVIDERS: Admitting Provider Obstetrics & Gynecology; Visit Provider Obstetrics & Gynecology
DX: O69.2XX0 Labor and delivery complicated by other cord entanglement, with compression, not applicable or unspecified (principal); Z3A.39 39 weeks gestation of pregnancy; Z37.0 Single live birth
CPT/HCPCS: 59025; 59050; 85027; 86850; 86900; 99218; J7120; G0378

== ENCOUNTER → 2018-04-30 14:40 | Outpatient (CLI) | payer MEDICAID, SELFPAY ==
[2018-05-02 20:17] LABS: HPV Reflexed? NOT INDICATED
== END ==
PROVIDERS: Visit Provider Obstetrics & Gynecology
DX: Z12.4 Encounter for screening for malignant neoplasm of cervix (principal)
CPT/HCPCS: 87624; 88175; G0145

== ENCOUNTER → 2019-02-21 | Outpatient (CLI) | payer MEDICAID, SELFPAY ==
[2019-02-21 18:48] LABS: Chlamydia Trachomatis by PCR Negative (Negative); Neisserai gonorrhoeae by PCR Negative (Negative); Probe Check PASS; Sample Adequacy Control PASS; Specimen Processing Control PASS
== END | disposition home or self-care (01) ==
LOC: LABSPEC 11:51
PROVIDERS: Referring Provider Advanced Practice Midwife; Visit Provider Advanced Practice Midwife
DX: Z11.3 Encounter for screening for infections with a predominantly sexual mode of transmission (principal)
CPT/HCPCS: 87491; 87591

== ENCOUNTER → 2019-03-25 10:37 | Outpatient (CLI) | payer MEDICAID, SELFPAY ==
[2019-03-25 14:07] LABS: Absolute Lymphocyte Count 1.99 X10^3/uL (0.83-4.51); Absolute Neutrophil Count 5.6 X10^3/uL (2.0-7.7); Basophil# 0.03 X10^3/uL; Basophil% 0.4 % (0-1); Color, Urine Yellow (Yellow); Eosinophil# 0.02 X10^3/uL; Eosinophils% 0.2 % (0-5); Glucose, Dipstick Normal (Normal); Hematocrit 43.1 % (37-47); Ketone-Dipstick 15 mg/dl (Negative); Leukocyte Esterase-Dipstick Negative /ul (Negative); Lymphocyte # 1.99 X10^3/ul (4.0); Lymphocyte % 24.6 % (19-41); Mean Corp Hgb Conc 32.5 g/dL (32-36); Mean Corpuscular Hgb 29.3 pg (27.0-32.0); Mean Corpuscular Volume 90.2 fL (81-99); Mean Platelet Vol. 10.9 fl (6.2-12.0); Monocyte# 0.42 X10^3/uL; Monocyte% 5.2 % (0-10); NRBC Flagged by Analyzer 0 % (0-5); Neutrophil # 5.61 X10^3/uL (2.7-7.7); Neutrophil % 69.2 % (47-70); Nitrite-Dipstick Negative (Negative); Occult Blood-Urine Negative /ul (Negative); Platelet Count 230 K/mm3 (150-450); Protein-Dipstick Negative (Negative); RBC Distribution Width CV 13.1 % (11.6-14.6); RBC Distribution Width SD 43.2 fl (35.1-43.9); Red Blood Count 4.78 M/mm3 (4.2-5.4); Urine Bilirubin Dipstick Negative (Negative); Urine Clarity Cloudy (Clear); Urine Urobilinogen Normal (Normal); White Blood Count 8.1 K/mm3 (4.4-11.0)
[2019-03-25 14:19] LABS: Amphetamine Urine VISTA NEGATIVE (<1000 ng/mL); Barbiturate Urine VISTA NEGATIVE (< 200 ng/mL); Benzodiazepine Urine VISTA NEGATIVE (< 200 ng/mL); Cocaine Urine VISTA NEGATIVE (< 300 ng/mL); Ecstacy Urine VISTA NEGATIVE (< 500 ng/mL); Methadone Urine VISTA NEGATIVE (< 300 ng/mL); PCP Urine VISTA NEGATIVE (< 25 ng/mL); THC Urine VISTA NEGATIVE (< 50 ng/mL); Vista UDS pH Range 7
[2019-03-25 14:23] LABS: Thyroid Stim Hormone (TSH) 0.44 uIU/mL (0.358-3.74)
[2019-03-26 10:04] LABS: HIV - WCH Non-Reactive (Nonreactive); Hepatitis B Surface Antigen Non-Reactive (Nonreactive); Hepatitis C Antibody Non-Reactive (Nonreactive); Vitamin D,25 Hydroxy 21.1 ng/mL (29.95-100.01)
[2019-03-28 03:16] LABS: Prenatal RPR NONREACTIVE (NONREACTIVE)
[2019-07-19 02:30] VITALS: BP 106/68; PULSE 90; RESP 18; TEMP 36.9; O2SAT 97
[2019-07-19 02:35] VITALS: BMI 36.8
[2019-07-19 02:41] VITALS: BMI 36.8
--- NOTE | 2019-07-19 03:49 | NURSING ---
When registration placed this pt in the computer for MS313 for 07/19/19, she accidentally placed the pt under the wrong visit number. Therefore documentation is showing up by Nubia Zander RN. Once the mistake was discovered, registration was contacted and the correct visit number of [id number] was entered. Refer to postop documentation under that visit number.
== END ==
PROVIDERS: Visit Provider Advanced Practice Midwife
DX: Z34.81 Encounter for supervision of other normal pregnancy, first trimester (principal)
CPT/HCPCS: 36415; 80307; 81002; 82306; 84443; 85025; 86703; 86762; 86803; 87340

== ENCOUNTER 2019-07-18 19:13 | Observation (INO) | payer MEDICAID, SELFPAY ==
[2019-07-18 19:13] VITALS: BP 121/73; PULSE 107; RESP 16; TEMP 36.2; O2SAT 100; BMI 23.7
--- NOTE | 2019-07-18 20:16 | CT_ITS ---
STUDY: CT ABDOMEN AND PELVIS WITH CONTRAST REASON FOR EXAM: Female, 23 years old. RLQ PAIN.27 WKS , elevated WBC RADIATION DOSAGE (If Supplied By Facility): CTDIvol = ( 13.95 ) mGy, DLP = ( 764.62 ) mGycm TECHNIQUE: Transaxial images were obtained from the dome of the diaphragm to the symphysis pubis with oral contrast. Oral and amp; IV Gastrografin and amp; 100mL Isovue-300 was administered. Sagittal and coronal images were reconstructed. Individualized dose optimization techniques were used for this CT. COMPARISON: None. FINDINGS: The visualized lung bases are unremarkable. The visualized portions of the heart are within normal limits. Normal liver. Normal gallbladder and extrahepatic biliary system. Normal spleen. Normal pancreas. Normal bilateral adrenal glands. There is bilateral hydronephrosis, marked on the right and [id number] on the left. On the right there is prominent hydroureter. On the left there are nonobstructing renal stones. 2 small stones are seen in the upper pole and there is a 9 mm mid renal stone. Normal visualized stomach. Normal small intestine. Normal colon. Abnormal appendix seen on axial images 67-77, and coronal images 53-68, with a thick wall in greatest thickness of 8 mm with mild periappendiceal stranding. No evidence for perforation or abscess. Normal abdominal aorta. Normal inferior vena cava. Normal retroperitoneum. Normal urinary bladder. There is a third trimester . Normal abdominal wall. Normal osseous structures. CT/Abdomen/Pelvis WITH Contrast IMPRESSION: Abnormal appearance of the appendix consistent with acute uncomplicated appendicitis. Bilateral hydronephrosis. N.B. : The above information has been verbally conveyed by Luis Rojas MD to Dr. Paul Armas MD, on 07/18/2019 22:22:44 (ET). Electronically Signed: Luis Rojas MD at 22:24 EDT , Service support ,
[2019-07-18] MEDS: 0.9% Normal Saline 1,000 ML 125 ML IV (20:25)
[2019-07-18] MEDS: Ondansetron 4 MG/2 ML Vial IV (20:25)
[2019-07-18 20:26] LABS: Red Blood Cells-Urine 0 SEEN /hpf (0-5)
[2019-07-18 20:30] LABS: Absolute Lymphocyte Count 1.28 X10^3/uL (0.83-4.51); Absolute Neutrophil Count 13.1 X10^3/uL (2.0-7.7); Basophil# 0.03 X10^3/uL; Basophil% 0.2 % (0-1); Eosinophil# 0.02 X10^3/uL; Eosinophils% 0.1 % (0-5); Hematocrit 38.3 % (37-47); Hemoglobin 12.6 g/dL (12.0-15.0); Lymphocyte # 1.28 X10^3/ul (4.0); Lymphocyte % 8.4 % (19-41); Mean Corp Hgb Conc 32.9 g/dL (32-36); Mean Corpuscular Hgb 31.4 pg (27.0-32.0); Mean Corpuscular Volume 95.5 fL (81-99); Mean Platelet Vol. 11.3 fl (6.2-12.0); Monocyte# 0.71 X10^3/uL; Monocyte% 4.6 % (0-10); NRBC Flagged by Analyzer 0 % (0-5); Neutrophil # 13.13 X10^3/uL (2.7-7.7); Platelet Count 213 K/mm3 (150-450); RBC Distribution Width SD 45.5 fl (35.1-43.9); Red Blood Count 4.01 M/mm3 (4.2-5.4); White Blood Count 15.3 K/mm3 (4.4-11.0)
[2019-07-18 20:31] LABS: Color, Urine Yellow (Yellow); Glucose, Dipstick Normal (Normal); Ketone-Dipstick 15 mg/dl (Negative); Leukocyte Esterase-Dipstick 25 /ul (Negative); Nitrite-Dipstick Negative (Negative); Occult Blood-Urine Negative /ul (Negative); Protein-Dipstick Negative (Negative); Urine Bilirubin Dipstick Negative (Negative); Urine Clarity Cloudy (Clear); Urine Urobilinogen Normal (Normal)
[2019-07-18 20:42] LABS: ALB/GLOB Ratio 0.8 RATIO (0.9-2.4); AST(SGOT) 11 U/L (15-37); Alanine Aminotransfer ALT/SGPT 12 U/L (13-56); Albumin, Serum 3.2 g/dL (3.2-5.0); Alkaline Phosphatase 48 U/L (45-117); Anion Gap 7 (5-15); BUN 6 mg/dL (7-18); BUN/Creat Ratio 12.1 RATIO (10-20); Calcium,Total 8.8 mg/dL (8.5-10.1); Chloride 107 mmol/L (98-107); EST Glomerular Filtration Rate 161 mL/min (>60); Est Glom Filt Rate - Afr Amer 195 mL/min (>60); Estimated Creatinine Clearance 162.42 ml/min; Glucose 103 mg/dL (74-106); Potassium 3.3 mmol/L (3.5-5.1); Protein, Total 7.2 g/dL (6.4-8.2); Sodium Level 138 mmol/L (136-145)
[2019-07-18 20:44] LABS: Amorphous Sediment 3+
[2019-07-18 20:45] LABS: Squamous Epithelial Cells - UA 0-5 SEEN /hpf (5-10)
[2019-07-18 20:47] LABS: Bacteria RARE /hpf (None Seen); Mucous, Urine RARE /hpf (<or=2+)
[2019-07-18 20:48] LABS: White Blood Cells 0-5 SEEN /hpf (0-5)
[2019-07-18 21:20] VITALS: BP 120/70; PULSE 90; RESP 16; O2SAT 99
--- NOTE | 2019-07-18 22:24 | ED.DCSUM_ITS ---
- ER Visit Summary Date of Service: 07/18/19 Chief Complaint: [Abdominal pain] History of Present Illness: The patient is a 23 F [presents to the emergency department with complaint of abdominal pain since this morning. Patient states the pains been continuous to the right lower quadrant. She is had some nausea but no vomiting. She is had decreased appetite. Patient states pain is worse when she moves her leg and the bumps in the road on the way to the hospital hurt. Patient incidentally is 27 weeks . She is G3, P2. She does have history of kidney stones but states that this pain is very different. She denies any blood in her stool or black tarry stools although she has had some loose stool since yesterday. She is not had a fever. Patient denies urinary symptoms. Patient has not had any surgical history.] Physical Examination: [HEENT-PERRLA, EOMI. Cranial nerves II through XII grossly intact. TMs clear. Mucous membranes moist. No adenopathy. Cardiovascular-regular rate and rhythm without murmur or ectopy Lungs-clear to auscultation, chest wall stable without crepitus or subcu emphysema Abdomen-normoactive bowel sounds, soft. Patient has tenderness palpation over right lower quadrant with some guarding. Patient is gravid with uterine fundus about 7 cm above the umbilicus. Uterus itself is nontender. Is no rebound, rigidity, or peritoneal signs. Extremities-intact ?4, normal range of motion, normal pulses, atraumatic] Test Results: [CBC with differential obtained showed an elevated white count of 15.3 chemistries unremarkable. LFTs were normal. Urinalysis normal.] CT scan of the abdomen and pelvis with IV and p.o. contrast ordered was read by radiology as suspicious for acute appendicitis with a dilated appendix up to 8 mm and some inflammatory changes noted. Emergency Department Course and Treatment: [Patient had an IV line established on arrival. Patient was given Zofran 4 mg IV. Patient will be started on Zosyn IV. Patient case discussed with general surgeon on-call Dr. Cale Abbasi who will present to evaluate patient.] Treatment Plan: Admit for surgical intervention [] Disposition: [Admit] Impression: Acute appendicitis [] This note was generated with [employer]ora (by [employer]ur)ation software. It may contain incorrect words, spelling, and punctuation that were not noted in review of the chart prior to signing ED Disposition - Plan for ED Patient: Referrals: Care Physician,No Primary [Primary Care Provider] -
[2019-07-18 23:04] VITALS: BP 136/84; PULSE 115; RESP 14; TEMP 37; O2SAT 99; BMI 23.7
[2019-07-18 23:10] VITALS: BP 136/84; PULSE 105; RESP 14; O2SAT 99
--- NOTE | 2019-07-18 23:30 | APP_PTH ---
PATIENT: ELIZABETH HERNANDEZ LOC: MS3 U#:[id number] AGE/SX: ROOM: MS313 RE07/19/[address]: Dr. Han Kennedy MD : 1995 BED: 1 DIS: 07/19/2019 SPEC #: [id number] RECD: 07/19/19 11:08 STATUS: CHENG CAL #: [id number] CRISTIAN: 07/18/19 23:[address]: Han Kennedy DEPT: SURGICAL PATHOLOGY RECD BY: Lucila Birch ENTERED: 07/19/19 11:36 SP TYPE: APPENDIX OT DR: No Primary Care Phys Tissues: Appendix, NOS Procedures: Surgery Specimen Level III HEADER OPERATION: Laparoscopic appendectomy PRE-OP DIAGNOSIS: Acute appendicitis TISSUE SUBMITTED: Appendix MICROSCOPIC DIAGNOSIS Appendix, appendectomy: Acute appendicitis. Acute serositis. AM:carolina 07/23/19 MICROSCOPIC DESCRIPTION Slides are reviewed. GROSS DESCRIPTION Received is one container labeled with the patient's name and designated appendix. The specimen consists of an appendix measuring 7.5 cm in length and up to 0.6 cm in diameter. The attached periappendiceal adipose tissue measures up to 1.5 cm in width. The serosa is congested. No obvious perforation is identified. The lumen contains a small amount of purulent material. No fecalith is identified. External Relations Director sections are submitted in one cassette. / SJ:carolina 07/19/19 TC:[address] [facility]: [id number]
--- NOTE | 2019-07-18 23:33 | PCM.HP.STD ---
Problem List (1) complicated by acute appendicitis Status: Acute (2) Acute appendicitis Status: Acute Qualifiers: Acute appendicitis type: unspecified acute appendicitis type Qualified Code(s): K35.80 - Unspecified acute appendicitis History of Present Illness Date of Admission: 07/18/19 The patient is a 23 year old F reports that she developed abdominal pain this morning. The abdominal pain has been worsening. She is having nausea but no vomiting. She reports chills but no fever. The pain is in the right lower quadrant. Past Medical History Allergies No Known Allergies Allergy (Verified 03/03/18 06:56) Home Medications: Ambulatory Orders Medication Instructions Recorded Tablet 1 tab PO DAILY 03/03/18 Surgical History: no surgical history Smoking Status: Never smoker - *Family History Maternal History Items: No pertinent history Review of Systems Constitutional: Denies: Anorexia, Fever HEENT: Denies: Difficulty Hearing, Dysphasia Cardiovascular: Denies: Chest Pain Respiratory: Denies: Cough, Shortness of Breath Gastrointestinal: Reports: Abdominal Pain, Nausea. Denies: Constipation, Diarrhea, Vomiting Skin: Denies: Jaundice Neurological: Denies: Balance problems VTE Information - Inpt Only VTE Present on Admission: No VTE Mechan Device Prophylaxis: SCD's Patient Problems: Active and Suspected Problems complicated by acute appendicitis (Acute) Acute appendicitis (Acute) - Physical Exam Vitals/I&O's: Vital Signs Temp Pulse Resp BP Pulse Ox 98.6 F 105 H 14 136/84 H 99 07/18/19 23:04 07/18/19 23:10 07/18/19 23:10 07/18/19 23:10 07/18/19 23:10 Oxygen Delivery Method Room Air Weight: 147 lb Body Mass Index (BMI) 23.7 General: Alert, Oriented x3 Neck: No JVD Lungs: Normal air movement Cardiovascular: Regular rate, Regular Rhythm Abdomen: Soft, Non-Distended, Tender - Tender in the right flank Skin: No rashes Musculoskeletal: No Muscle Wasting Neurological: Cranial nerves II-XII grossly intact Psych/Mental Status: Normal Affect Laboratory Results 07/18/19 19:40: WBC 15.3 H, RBC 4.01 L, Hgb 12.6, Hct 38.3, MCV 95.5, MCH 31.4, MCHC 32.9, RDW Std Deviation 45.5 H, RDW Coeff of Mariajose 13.0, Plt Count 213, MPV 11.3, Immature Gran % (Auto) 0.700, Neut % (Auto) 86.0 H, Lymph % (Auto) 8.4 L, [place] % (Auto) 4.6, Eos % (Auto) 0.1, Baso % (Auto) 0.2, Absolute Neuts (auto) 13.1 H, Absolute Lymphs (auto) 1.28, Nucleated RBC % 0 07/18/19 19:40: Sodium 138, Potassium 3.3 L, Chloride 107, Carbon Dioxide 24.0, Anion Gap 7, BUN 6 L, Creatinine 0.50 L, Estim Creat Clear Calc 162.42, Est GFR (MDRD) Af Amer 195, Est GFR (MDRD) Non-Af 161, BUN/Creatinine Ratio 12.1, Glucose 103, Calcium 8.8, Total Bilirubin 0.30, AST 11 L, ALT 12 L, Alkaline Phosphatase 48, Total Protein 7.2, Albumin 3.2, Globulin 4.0, Albumin/Globulin Ratio 0.8 L 07/18/19 19:40: Urine Color Yellow, Urine Clarity Cloudy, Urine pH 7.0, Ur Specific [place] 1.010, Urine Protein Negative, Urine Glucose (UA) Normal, Urine Ketones 15 H, Urine Occult Blood Negative, Urine Nitrite Negative, Urine Bilirubin Negative, Urine Urobilinogen Normal, Ur Leukocyte Esterase 25 H, Urine RBC 0 SEEN, Urine WBC 0-5 SEEN, Ur Squamous Epith Cells 0-5 SEEN, Amorphous Sediment 3+, Urine Bacteria RARE, Urine Mucus RARE Clinical Impression(s) from Imaging Studies Abdomen/Pelvis CT 07/18/19 20:16 IMPRESSION: Abnormal appearance of the appendix consistent with acute uncomplicated appendicitis. Bilateral hydronephrosis. N.B. : The above information has been verbally conveyed by Luis Rojas MD to Dr. Paul Armas MD, on 07/18/2019 22:22:44 (ET). Electronically Signed: Luis Rojas MD at 22:24 EDT , Service support , ADDENDUM: 07/18/19 7261 IMPRESSION: Abnormal appearance of the appendix consistent with acute uncomplicated appendicitis. Bilateral hydronephrosis. N.B. : The above information has been verbally conveyed by Luis Rojas MD to Dr. Paul Armas MD, on 07/18/2019 22:22:44 (ET). Electronically Signed: Luis Rojas MD at 22:24 EDT , Service support , Current Medications Sodium Chloride () 1,000 mls @ 125 mls/hr IV .Q8H ART Last Admin: 07/18/19 20:25 Dose: 125 mls/hr Documented by: Assessment/Plan All Active Problems complicated by acute appendicitis (Acute) Acute appendicitis (Acute) 23-year-old female with acute appendicitis 1. Patient is 27 weeks . The patient has right-sided abdominal pain that started today. CT scan revealed acute appendicitis. Her white count is elevated. She was tachycardic upon admission but is now normalized. 2. Patient had hypokalemia on admission and is being given a bolus currently. She is also being given antibiotics at this time. 3. I discussed her case with the plaster caster on-call and the patient has had heart tones in ER. 4. I discussed laparoscopic appendectomy with her in detail. I discussed the possibility of converting to open procedure. I recommend performing laparoscopic appendectomy tonight due to the . I discussed the risks of the procedure including but not limited to bleeding, infection, injury to other organs, loss of , labor. The patient understands the risks and would like to proceed. Han Kennedy MD Pager: [facility] [address] [place] [address], [address] [place] [address] Office:
[2019-07-19] VITALS (10 sets, daily range): BP systolic 101–136; BP diastolic 55–96; PULSE 74–98; RESP 14–18; TEMP 36.8–37.7; O2SAT 96–100; BMI 36.8
[2019-07-19] MEDS: Bupiv/Epi 0.25% 30 ML Vial (01:02)
--- NOTE | 2019-07-19 01:18 | OP.PCM_ITS ---
Problem List (1) complicated by acute appendicitis Status: Acute (2) Acute appendicitis Status: Acute Qualifiers: Acute appendicitis type: unspecified acute appendicitis type Qualified Code(s): K35.80 - Unspecified acute appendicitis Report of Operation Date of Procedure: 07/19/19 Pre-Operative Diagnosis: Acute appendicitis Post-Operative Diagnosis: Same Surgery/Procedure Performed:: Laparoscopic appendectomy Description of Surgical Findings:: Inflamed appendix, wound class III Specimen's removed: Appendix Description of Procedure: Patient was brought back to the operating room and general anesthesia was induced. The abdomen was prepped and draped in usual sterile fashion. An incision was made in the epigastric space and deepened to the fascia. The fascia was elevated and incised. A 12 mm port was placed into the abdomen after finger sweep was performed and the abdomen was insufflated to 15 mmHg. The camera was placed into the abdomen and it was inspected. There were no injuries from entry and the uterus was far from the incision. Next under direct visualization a right lateral abdominal 5 mm port was placed as well as a right lower quadrant 5 mm port. Using graspers the appendix was identified. The patient had appendicitis of the distal appendix. The proximal appendix was elevated and a window was made in the mesoappendix using [place]. A stapler was used to divide the appendiceal base. Next the Enseal was used to take down the mesoappendix until the tip was reached. The appendix was then placed into an Endo Catch bag. Suction was used to aspirate the small amount of purulent material in the right lower quadrant. The staple line was hemostatic with no oozing. Next the air was allowed to desufflate from the abdomen and the ports were removed. The bag was removed containing appendix. The fascia at the midline incision was closed with 2 interrupted 0 Vicryl sutures. The incision was irrigated and suctioned dry. All the incisions were anesthetized with Marcaine and closed with interrupted 4-0 Monocryl sutures as well as Steri- Strips and bandages. The patient was awoken and taken to PACU in stable condition. heart tones will be obtained in PACU. - Admit VTE Documentation VTE Mechan Device Prophylaxis: SCD's
[2019-07-19] MEDS: Potassium Chloride 10mEq/100mL 10 MEQ/100 ML IV.SOLN. 100 MEQ IV BOLUS ×2 (01:33→03:56)
--- NOTE | 2019-07-19 01:47 | SUR.PHASEI ---
FHT completed by OB: noting all is good
--- NOTE | 2019-07-19 02:08 | NURSING ---
This RN assessed FHR via US and contractions via TOCO at bedside in PACU. FHR baseline 135 with moderate variability, no decelerations noted. No contractions noted.
[2019-07-19] MEDS: 0.9% Normal Saline 1,000 ML 100 ML IV (03:55)
--- NOTE | 2019-07-19 04:16 | NURSING ---
When registration was notified about this pt, they accidentally put in visit number [id number]. Therefore, Nubia Monday RN has documentation that shows up under the wrong visit number. Registration was notified as soon as the problem was discovered and it was corrected. Because of the error, the documentation had to be re entered. This RN assisted Nubia RN with the documentation.
[2019-07-19] MEDS: Acetaminophen 325 MG Tablet 650 MG PO (06:08)
[2019-07-19 07:42] LABS: Absolute Lymphocyte Count 1.93 X10^3/uL (0.83-4.51); Absolute Neutrophil Count 12.2 X10^3/uL (2.0-7.7); Basophil# 0.03 X10^3/uL; Basophil% 0.2 % (0-1); Eosinophil# 0.01 X10^3/uL; Eosinophils% 0.1 % (0-5); Hematocrit 33.6 % (37-47); Hemoglobin 11.1 g/dL (12.0-15.0); Lymphocyte # 1.93 X10^3/ul (4.0); Lymphocyte % 12.9 % (19-41); Mean Corpuscular Hgb 31.6 pg (27.0-32.0); Mean Corpuscular Volume 95.7 fL (81-99); Mean Platelet Vol. 11.4 fl (6.2-12.0); Monocyte# 0.75 X10^3/uL; NRBC Flagged by Analyzer 0 % (0-5); Neutrophil # 12.16 X10^3/uL (2.7-7.7); Neutrophil % 81.2 % (47-70); Platelet Count 187 K/mm3 (150-450); RBC Distribution Width CV 13.2 % (11.6-14.6); RBC Distribution Width SD 45.9 fl (35.1-43.9); Red Blood Count 3.51 M/mm3 (4.2-5.4)
--- NOTE | 2019-07-19 07:59 | PCM.PN.SRG ---
Subjective: Patient is doing well with no nausea or vomiting. Her pain is minimal. - Physical Exam Vitals/I&O's: Vital Signs Temp Pulse Resp BP Pulse Ox 98.7 F 92 16 107/68 98 07/19/19 05:48 07/19/19 05:48 07/19/19 05:48 07/19/19 05:48 07/19/19 05:48 Oxygen Delivery Method Room Air Weight: 152 lb 9.593 oz Body Mass Index (BMI) 36.8 Intake and Output for Last 24 Hours 07/17/19 07/18/19 07/19/19 23:59 23:59 23:59 Intake Total 1291.67 / 1291.67 Output Total 300 / 300 Balance 991.67 / 991.67 General: Alert, Oriented x3 Neck: No JVD Lungs: Normal air movement Abdomen: Soft, Non-Distended Laboratory Results 07/18/19 19:40: WBC 15.3 H, RBC 4.01 L, Hgb 12.6, Hct 38.3, MCV 95.5, MCH 31.4, MCHC 32.9, RDW Std Deviation 45.5 H, RDW Coeff of Mariajose 13.0, Plt Count 213, MPV 11.3, Immature Gran % (Auto) 0.700, Neut % (Auto) 86.0 H, Lymph % (Auto) 8.4 L, [place] % (Auto) 4.6, Eos % (Auto) 0.1, Baso % (Auto) 0.2, Absolute Neuts (auto) 13.1 H, Absolute Lymphs (auto) 1.28, Nucleated RBC % 0 07/18/19 19:40: Sodium 138, Potassium 3.3 L, Chloride 107, Carbon Dioxide 24.0, Anion Gap 7, BUN 6 L, Creatinine 0.50 L, Estim Creat Clear Calc 162.42, Est GFR (MDRD) Af Amer 195, Est GFR (MDRD) Non-Af 161, BUN/Creatinine Ratio 12.1, Glucose 103, Calcium 8.8, Total Bilirubin 0.30, AST 11 L, ALT 12 L, Alkaline Phosphatase 48, Total Protein 7.2, Albumin 3.2, Globulin 4.0, Albumin/Globulin Ratio 0.8 L 07/18/19 19:40: Urine Color Yellow, Urine Clarity Cloudy, Urine pH 7.0, Ur Specific [place] 1.010, Urine Protein Negative, Urine Glucose (UA) Normal, Urine Ketones 15 H, Urine Occult Blood Negative, Urine Nitrite Negative, Urine Bilirubin Negative, Urine Urobilinogen Normal, Ur Leukocyte Esterase 25 H, Urine RBC 0 SEEN, Urine WBC 0-5 SEEN, Ur Squamous Epith Cells 0-5 SEEN, Amorphous Sediment 3+, Urine Bacteria RARE, Urine Mucus RARE 07/19/19 06:50: WBC 15.0 H, RBC 3.51 L, Hgb 11.1 L, Hct 33.6 L, MCV 95.7, MCH 31.6, MCHC 33.0, RDW Std Deviation 45.9 H, RDW Coeff of Mariajose 13.2, Plt Count 187, MPV 11.4, Immature Gran % (Auto) 0.600, Neut % (Auto) 81.2 H, Lymph % (Auto) 12.9 L, [place] % (Auto) 5.0, Eos % (Auto) 0.1, Baso % (Auto) 0.2, Absolute Neuts (auto) 12.2 H, Absolute Lymphs (auto) 1.93, Nucleated RBC % 0 07/19/19 06:50: Sodium Pending, Potassium Pending, Chloride Pending, Carbon Dioxide Pending, Anion Gap Pending, BUN Pending, Creatinine Pending, Est GFR (MDRD) Af Amer Pending, Est GFR (MDRD) Non-Af Pending, BUN/Creatinine Ratio Pending, Glucose Pending, Calcium Pending Current Medications Acetaminophen (Tylenol) 650 mg PO Q4H PRN PRN PRN Reason: Pain Score 1-10/10/FEVER Last Admin: 07/19/19 06:08 Dose: 650 mg Documented by: Docusate Sodium (Colace) 100 mg PO BID [facility] Sodium Chloride () 1,000 mls @ 100 mls/hr IV .Q10H [facility] Last Admin: 07/19/19 03:55 Dose: 100 mls/hr Documented by: Morphine Sulfate () 2 - 4 mg IV Q2H PRN PRN PRN Reason: Pain Score 4-10/10 Ondansetron HCl (Zofran) 4 mg IV Q6H PRN PRN PRN Reason: NAUSEA Oxycodone HCl (Oxyir) 5 - 10 mg PO Q4H PRN PRN PRN Reason: Pain Score 4-10/10 Multivit/Folic Acid/Iron (Prenatabs Fa) 1 tablet PO DAILY@1200 ART Medical Necessity - Tobacco Use Smoking Status: Never smoker Assessment/Plan All Active Problems complicated by acute appendicitis (Acute) Acute appendicitis (Acute) 23-year-old female with acute appendicitis 1. Patient is doing well this morning. She has been having heart tones every shift. She is not having any nausea or vomiting. If she tolerates regular diet she will be discharged home. Han Kennedy MD Pager: [facility] [address] [place] [address], [address] [place] [address] Office:
--- NOTE | 2019-07-19 08:09 | DCINST_ITS ---
Discharge Diet: Light diet - advance as tolerated Discharge Activity: May Not Drive - for 3-5 days or while taking narcotic pain meds. May shower in (days): 1 Lifting Restrictions: 20 lbs for 2 weeks Call your doctor if your incision/area has: Continuous Slow Oozing, Sudden Increased Bleeding, Increased Pain/ Swelling, Increased Redness, Foul Smelling Discharge Call your doctor if you observe: Fever of 101 or Higher Suture Line Care: Avoid Pulling/Pushing, Avoid Pinching/Bending Additional Dressing/Incision Instructions:: Keep dressing clean and dry. Change or remove dressing in 2 days. Leave steri strips for 1 week. May protect with a gauze bandaid. Medications to take at Discharge Tablet 1 tab PO DAILY 03/03/18 Acetaminophen [Tylenol Tablet] 650 mg PO Q4H PRN PRN tablet 07/19/19 Allergies/Adverse Reactions: Allergies No Known Allergies Allergy (Verified 03/03/18 06:56) Primary Care Physician: Care Physician,No Primary [Primary Care Provider] - Test Results: Test results from this visit will be discussed in further detail at your follow- up appointment, if applicable. Please Follow Up With: Han Kennedy MD When: Please call to schedule 2 week follow up appointment. [phone] Please Follow Up With: Krystyna Oliva MD When: Please call to schedule appt
[2019-07-19 08:13] LABS: Anion Gap 9 (5-15); BUN 5 mg/dL (7-18); BUN/Creat Ratio 8.1 RATIO (10-20); Chloride 108 mmol/L (98-107); Creatinine, Serum 0.62 mg/dL (0.55-1.02); EST Glomerular Filtration Rate 125 mL/min (>60); Est Glom Filt Rate - Afr Amer 151 mL/min (>60); Estimated Creatinine Clearance 152.89 ml/min; Glucose 113 mg/dL (74-106); Potassium 3.5 mmol/L (3.5-5.1); Sodium Level 138 mmol/L (136-145)
[2019-07-19] MEDS: oxyCODONE 5 MG Tablet PO (09:54)
[2019-07-19] MEDS: Docusate Sodium 100 MG Capsule PO (09:54)
--- NOTE | 2019-07-19 10:06 | PHA.DC.MR ---
Pharmacy Service has performed discharge medication reconciliation for this patient. The patient's discharge medication list was reviewed for discrepancies and discrepancies were resolved. Home Medications Tablet 1 tab PO DAILY 03/03/18 Acetaminophen [Tylenol Tablet] 650 mg PO Q4H PRN PRN tab 07/19/19
--- NOTE | 2019-07-19 11:30 | NURSING ---
1038 pt placed on EFM per jayla gilliam from [id number] no decels seen baseline of 145 with mod variability one accel up to 165 lasting 120 seconds no contractions seen or palpated
== END 2019-07-19 12:01 | disposition home or self-care (01) ==
LOC: ED 20:54 → MS3 07-19 13:05
PROVIDERS: Admitting Provider Surgery; Emergency Provider Emergency Medicine; Visit Provider Surgery
PROC: 0DTJ4ZZ Resection of Appendix, Percutaneous Endoscopic Approach (ICD-10-PCS; CPT 44970; principal; 2019-07-18 23:30)
DX: O99.612 Diseases of the digestive system complicating pregnancy, second trimester (principal); K35.80 Unspecified acute appendicitis; O99.282 Endocrine, nutritional and metabolic diseases complicating pregnancy, second trimester; E87.6 Hypokalemia; Z3A.27 27 weeks gestation of pregnancy
CPT/HCPCS: 00840; 44970; 36415; 59050; 74177; 80048; 80053; 81001; 85025; 88304; 96361; 96365; 96366; 96375; 99218; 99284; J7030; Q9967; A4216; C1760; G0378; J2405

== ENCOUNTER → 2019-07-23 09:29 | Outpatient (CLI) | payer MEDICAID, SELFPAY ==
[2019-07-19 02:35] VITALS: BMI 36.8
[2019-07-23 12:20] LABS: Hematocrit 36.9 % (37-47); Hemoglobin 12.1 g/dL (12.0-15.0); Mean Corp Hgb Conc 32.8 g/dL (32-36); Mean Corpuscular Hgb 31.9 pg (27.0-32.0); Mean Corpuscular Volume 97.4 fL (81-99); Mean Platelet Vol. 11.4 fl (6.2-12.0); Platelet Count 198 K/mm3 (150-450); RBC Distribution Width CV 13.2 % (11.6-14.6); RBC Distribution Width SD 47.3 fl (35.1-43.9); Red Blood Count 3.79 M/mm3 (4.2-5.4)
[2019-07-23 12:32] LABS: Glucose Challenge Gest 1H 50g 75 mg/dL (70-140)
== END ==
PROVIDERS: Visit Provider Obstetrics & Gynecology
DX: O26.893 Other specified pregnancy related conditions, third trimester (principal); E55.9 Vitamin D deficiency, unspecified
CPT/HCPCS: 82306; 82950; 85027

== ENCOUNTER 2019-07-24 15:12 | Emergency (ER) | payer MEDICAID, SELFPAY ==
[2019-07-19 02:35] VITALS: BMI 36.8
[2019-07-24 15:13] VITALS: BP 127/86; PULSE 87; RESP 16; TEMP 36.6; O2SAT 100; BMI 24.2
--- NOTE | 2019-07-24 16:13 | US_ITS ---
STUDY: RENAL ULTRASOUND - COMPLETE REASON FOR EXAM: Female, 23 years old. LT FLANK PAIN- TODAY SEVERE PT 28 WEEKS TECHNIQUE: Ultrasound evaluation of the kidneys was performed with real-time and static bobby-scale imaging. COMPARISON: None. FINDINGS: RIGHT KIDNEY: Normal location of the right kidney, which is normal in size. The right kidney measures 12.2 x 4.5 x 4.0 cm. There is a normal cortex of the right kidney. The renal cortex measures 1.6 cm. There is no right renal mass or cyst. There are no right renal calculi. There is mild hydronephrosis of the right kidney. DISTAL RIGHT URETER: There is non-visualization of the distal right ureter. There is no demonstrated right ureterovesical junction calculus. There is no demonstrated right ureteral jet. LEFT KIDNEY: Normal location of the left kidney, which is normal in size. The left kidney measures 12.6 x 6.6 x 4.4 cm. There is a normal cortex of the left kidney. The renal cortex measures 1.5 cm. Multiple left renal cysts, the largest measuring up to 12 mm. There are no left renal calculi. There is moderate hydronephrosis of the left kidney. DISTAL LEFT URETER: There is non-visualization of the distal left ureter. There is no demonstrated left ureterovesical junction calculus. There is no demonstrated left ureteral jet. BLADDER: The distended urinary bladder has a volume of 20.65 ml. There is a normal wall thickness of the distended urinary bladder. There is no demonstrated mass within the urinary bladder. There are no demonstrated bladder calculi. US/Kidney and Bladder IMPRESSION: Moderate left and mild right sided hydronephrosis. Electronically Signed: Isauro Hathaway MD at 17:18 EDT Tel , Service support ,
--- NOTE | 2019-07-24 16:25 | ED.VISSUMM ---
- ER Visit Summary Date of Service: 07/24/19 Chief Complaint: Left flank pain History of Present Illness: The patient is a 23 F who presents with left flank pain that began today. Patient is approximately 28 weeks . Patient had a recent appendectomy. Patient had a CT scan done at that time which showed left renal calculi. Patient states that his pain is completely different from her appendicitis pain. Patient describes the pain as aching and stabbing. Patient states the pain is worse with movement. Patient denies any fevers or chills. Patient denies any dysuria or hematuria. Physical Examination: Vital signs are stable. Patient is afebrile. Patient is in no acute distress. Oral mucosa is pink and moist. Neck is supple. Trachea is midline. There is no JVD. Heart was regular rate and rhythm. Lungs are clear and equal bilaterally. Abdomen is soft. Bowel sounds are normal. There is left CVA tenderness and mild left upper quadrant tenderness. There is no rebound or guarding noted. Cranial nerves II through XII are intact. There are no focal motor or sensory deficits. Test Results: CBC shows a slight leukocytosis of 12.6. Urinalysis does not show any evidence of urinary tract infection. Renal ultrasound was obtained. There is moderate left hydronephrosis and mild right-sided hydronephrosis. There is nonvisualization of the left distal ureter. There are no left renal calculi noted. These were interpreted by the radiologist and reviewed by myself. Emergency Department Course and Treatment: Patient was given IV fluids, morphine, and Zofran here. Patient was feeling better on reevaluation. Patient was advised of her findings. On prior records, the patient did have 2 small stones in the upper pole of the left kidney and a 9 mm mid renal stone on CT scan 6 days ago. Patient was advised that these have likely passed into the ureter and are what is causing her flank pain. Patient was given a prescription for a short course of Graham. Patient was instructed to follow-up with her primary care physician and [facility] in 5 to 7 days. Patient was instructed to return if worse in any way. Patient was instructed to drink plenty of fluids. Patient understood and was agreeable with the plan. All questions were answered. Disposition: Discharge home Impression: Left ureteral colic This note was generated with [employer] software. It may contain incorrect words, spelling, and punctuation that were not noted in review of the chart prior to signing ED Disposition - Plan for ED Patient: Disposition: Home or Assisted Living Diagnosis: Ureteral colic Instructions: ED Renal Stone w Colic Prescriptions: Hydrocodone Bitart/Apap 5-325 [Graham 5MG-325MG] 1 tab PO Q6H PRN PRN 3 Days #10 tab PRN Reason: Pain Prescription Printed Referrals: Care Physician,No Primary [Primary Care Provider] - Krystyna Sheets MD [STAFF PHYSICIAN] - 5-7 Days
[2019-07-24] MEDS: Ondansetron 4 MG/2 ML Vial IV (16:27)
[2019-07-24] MEDS: Morphine 4 MG/ML Syringe IV (16:27)
[2019-07-24 16:37] LABS: Mucous, Urine 0 SEEN /hpf (<or=2+); White Blood Cells 0 SEEN /hpf (0-5)
[2019-07-24 16:43] LABS: Color, Urine Yellow (Yellow); Glucose, Dipstick Normal (Normal); Ketone-Dipstick 50 mg/dl (Negative); Leukocyte Esterase-Dipstick Negative /ul (Negative); Nitrite-Dipstick Negative (Negative); Occult Blood-Urine 25 /ul (Negative); Protein-Dipstick 15 mg/dl (Negative); Urine Bilirubin Dipstick Negative (Negative); Urine Clarity Sl. Cloudy (Clear); Urine Urobilinogen Normal (Normal)
[2019-07-24 16:55] LABS: Absolute Lymphocyte Count 1.59 X10^3/uL (0.83-4.51); Absolute Neutrophil Count 10.3 X10^3/uL (2.0-7.7); Basophil# 0.03 X10^3/uL; Basophil% 0.2 % (0-1); Eosinophil# 0.02 X10^3/uL; Eosinophils% 0.2 % (0-5); Hematocrit 39.1 % (37-47); Lymphocyte # 1.59 X10^3/ul (4.0); Lymphocyte % 12.6 % (19-41); Mean Corp Hgb Conc 33.2 g/dL (32-36); Mean Corpuscular Hgb 31.8 pg (27.0-32.0); Mean Corpuscular Volume 95.6 fL (81-99); Monocyte# 0.59 X10^3/uL; Monocyte% 4.7 % (0-10); NRBC Flagged by Analyzer 0 % (0-5); Neutrophil # 10.33 X10^3/uL (2.7-7.7); Neutrophil % 81.9 % (47-70); Platelet Count 219 K/mm3 (150-450); RBC Distribution Width CV 13.1 % (11.6-14.6); RBC Distribution Width SD 45.8 fl (35.1-43.9); Red Blood Count 4.09 M/mm3 (4.2-5.4); White Blood Count 12.6 K/mm3 (4.4-11.0)
[2019-07-24 17:16] LABS: Red Blood Cells-Urine 0-5 SEEN /hpf (0-5); Squamous Epithelial Cells - UA 0-5 SEEN /hpf (5-10)
[2019-07-24 17:17] LABS: Amorphous Sediment 1+; Bacteria 1+ /hpf (None Seen)
[2019-07-24 17:50] VITALS: BP 107/70; PULSE 89; RESP 16; O2SAT 97
== END 2019-07-24 18:20 | disposition home or self-care (01) ==
PROVIDERS: Emergency Provider Emergency Medicine
DX: O26.833 Pregnancy related renal disease, third trimester (principal); N23 Unspecified renal colic; R30.0 Dysuria; Z3A.28 28 weeks gestation of pregnancy; Z87.442 Personal history of urinary calculi
CPT/HCPCS: 76770; 81001; 85025; 87086; 96374; 96375; 99283; A4216; J2405

== ENCOUNTER → 2019-07-24 | Outpatient (CLI) | payer MEDICAID, SELFPAY ==
[2019-07-19 02:35] VITALS: BMI 36.8
== END | disposition home or self-care (01) ==
LOC: LABSPEC 14:55
PROVIDERS: Visit Provider Obstetrics & Gynecology
DX: R30.0 Dysuria (principal)
CPT/HCPCS: 87086

== ENCOUNTER → 2019-09-16 | Outpatient (CLI) | payer MEDICAID, SELFPAY | END | disposition home or self-care (01) | LOC: LABSPEC 13:40 | PROVIDERS: Visit Provider Obstetrics & Gynecology | DX: Z36.85 Encounter for antenatal screening for Streptococcus B (principal) | CPT/HCPCS: 87081 ==

== ENCOUNTER 2019-09-23 17:20 | Outpatient (CLI) | payer MEDICAID, SELFPAY ==
[2019-09-23 17:34] VITALS: BMI 25.3
--- NOTE | 2019-09-26 08:34 | OB.TRI.NOTE ---
History of Present Illness Date of Service: 09/23/19 Was patient seen by the physician?: No Reason For Visit: RULE OUT LABOR Date of Service: 09/23/19 Final CODY: 10/12/19 Final CODY Source: US <20 weeks Gestational age: 37 Weeks and 5 Days History of Present Illness: 37+ week intrauterine presents with some irregular contractions. Patient has a history of fast labors. Allergies No Known Allergies Allergy (Verified 08/02/19 13:38) - Pertinent Past Medical History Medical History: Past Medical History (Last Reviewed 08/02/19 @ 13:39 by Dulce Maria Donis) complicated by acute appendicitis (Acute) Acute appendicitis (Acute) Surgical History: Past Surgical History (Last Updated 08/02/19 @ 13:38 by Dulce Maria Donis) History of laparoscopic appendectomy Onset Date: ~07/19/19 NST - FHR Rate Baby A NST Reactive:: Yes FHR Category:: Category I Impression/Plan 37+ week intrauterine with false labor. No change in cervix after watching for several hours. Return if contractions begins to become significantly stronger or if rupture of membranes occurs. Otherwise routine follow-up in the office. Nonstress test was reactive.
[2019-10-05 19:41] VITALS: PULSE 99; O2SAT 99
[2019-10-05 19:42] VITALS: BP 118/89; PULSE 110
== END 2019-09-23 21:22 | disposition home or self-care (01) ==
PROVIDERS: Referring Provider Obstetrics & Gynecology; Visit Provider Obstetrics & Gynecology
DX: Z34.83 Encounter for supervision of other normal pregnancy, third trimester (principal)
CPT/HCPCS: 59025; 59050; 99218; G0378

== ENCOUNTER 2019-10-06 05:40 | Inpatient (IN) | payer MEDICAID, SELFPAY ==
[2019-10-05] VITALS (10 sets, daily range): BP systolic 116–136; BP diastolic 81–95; PULSE 82–98; TEMP 36.8–36.9; O2SAT 99; BMI 25.5
[2019-10-05 20:05] LABS: ROM Internal Control Test YES-OK TO RESULT pt. (Internal QC)
[2019-10-05 20:25] LABS: ROM Patient Test Negative (Negative)
[2019-10-06] VITALS (28 sets, daily range): BP systolic 102–142; BP diastolic 56–95; PULSE 77–171; RESP 16–18; TEMP 36.4–38.3; O2SAT 82–99
[2019-10-06] MEDS: 0.9% Saline Lock 10 ML Syringe IV (00:12)
[2019-10-06] MEDS: proMETHazine 25 MG/ML Syringe IM (00:12)
[2019-10-06] MEDS: fentaNYL 100 MCG/2 ML Ampul 50 MCG IV (00:12)
[2019-10-06] MEDS: morphine 10 MG/ML Syringe IM (01:16)
[2019-10-06] MEDS: Lactated Ringers 500 ML 999 ML IV (05:57)
[2019-10-06 06:11] LABS: Absolute Lymphocyte Count 2.17 X10^3/uL (0.83-4.51); Absolute Neutrophil Count 10.9 X10^3/uL (2.0-7.7); Basophil# 0.03 X10^3/uL; Basophil% 0.2 % (0-1); Eosinophil# 0.02 X10^3/uL; Eosinophils% 0.1 % (0-5); Hematocrit 36.5 % (37-47); Hemoglobin 12.2 g/dL (12.0-15.0); Lymphocyte # 2.17 X10^3/ul (4.0); Lymphocyte % 15.5 % (19-41); Mean Corp Hgb Conc 33.4 g/dL (32-36); Mean Corpuscular Hgb 31.4 pg (27.0-32.0); Mean Corpuscular Volume 93.8 fL (81-99); Mean Platelet Vol. 12.4 fl (6.2-12.0); Monocyte# 0.81 X10^3/uL; Monocyte% 5.8 % (0-10); NRBC Flagged by Analyzer 0 % (0-5); Neutrophil # 10.92 X10^3/uL (2.7-7.7); Platelet Count 159 K/mm3 (150-450); RBC Distribution Width CV 13.4 % (11.6-14.6); RBC Distribution Width SD 45.5 fl (35.1-43.9); Red Blood Count 3.89 M/mm3 (4.2-5.4)
[2019-10-06] MEDS: Lactated Ringers 1,000 ML 200 ML IV (06:34)
[2019-10-06] MEDS: fentaNYL 100 MCG/2 ML Ampul IV (06:47)
--- NOTE | 2019-10-06 07:06 | HP.PCM_ITS ---
- Problem List (1) 39 weeks gestation of Status: Acute History Date of Admission: 10/06/19 Final CODY: 10/12/19 Final CODY Source: US <20 weeks Gestational age: 39 Weeks and 1 Days History of this : This is a 24 year-old, G [3], P [2], at 39 1/7 weeks gestational age with c/o painful contractions for two day. She was observed overnight for exam 2.5-3cm with no significant change and therapeutic rest. This morning she was 5.5cm dilated. She otherwise feels well. Medical History: Medical History (Last Updated 10/06/19 @ 07:[address] Krystyna Costa MD) Kidney stones N20.0 Surgical History: Surgical History (Last Reviewed 10/06/19 @ 07:[address] Krystyna Costa MD) History of laparoscopic appendectomy Onset Date: ~07/19/19 Z90.49 Allergies No Known Allergies Allergy (Verified 10/05/19 22:15) Home Medications: Home Medications Tablet 1 tab PO DAILY 03/03/18 Smoking Status: Never smoker Alcohol: None Number of Fetus(es): 1 NST - FHR Rate Baby A Baseline: 145 Variability:: Minimal Accelerations:: None Decelerations:: None NST Reactive:: Yes FHR Category:: Category II Uterine Activity:: 1-2/10 History Past Pregnancies: Past Pregnancies Delivery Date Name GA/ Weeks Outcome Route Wt Sex Labor Length Anesthesia Delivery Location Provider FOB 02/2014 Héctor 40 Living [id number] F 12 Epidural [facility] 02/2018 Christian 39 Living [id number] M 7 Epidural [facility] Paul Labs: Mom's Labs & Results 10/05/19 10/06/19 10/06/19 19:49 00:00 00:00 WBC 14.0 H RBC 3.89 L Hgb 12.2 Hct 36.5 L MCV 93.8 MCH 31.4 MCHC 33.4 RDW Std Deviation 45.5 H RDW Coeff of Mariajose 13.4 Plt Count 159 MPV 12.4 H Immature Gran % (Auto) 0.400 Neut % (Auto) 78.0 H Lymph % (Auto) 15.5 L [place] % (Auto) 5.8 Eos % (Auto) 0.1 Baso % (Auto) 0.2 Absolute Neuts (auto) 10.9 H Absolute Lymphs (auto) 2.17 Nucleated RBC % 0 Vag Amniotic Fld Detect Negative Blood Type O POSITIVE Antibody Screen NEGATIVE Course Did the patient receive Yes care? Labs Blood Type: O RH: POSITIVE RPR/VDRL/Syphilis Nonreactive Rubella status Immune HbSAg Negative Date Done: 03/25/19 Chlamydia Negative Gonorrhea Negative HIV/AIDS Non-Reactive Group B Strep: Negative Current Obstetrical History Gestational Diabetes No Incompetent Cervix No Infertility No IUGR No Macrosomia No Hypertension/Pre-eclampsia No Placenta Previa/Abruption No PTL/PROM No Uterine anomaly No Oligohydramnios No Polyhydramnios No Multiple gestation No Past Medical History Asthma No Diabetes No Hypertension No Heart disease No Mitral valve prolapse No Neurologic/Seizure disorder/ No Migraines Kidney disease No Liver disease No Varicosities No Clotting disorders/Hx of DVT No Thyroid Dysfunction No Other medical diseases No Psychiatric disorders No Major trauma No Abnormal PAP smear No Sleep apnea No Mammogram in the last 2 years No Social History Marital Status: SINGLE Alleged father Paul Hx Smoking No Smoking Status Never smoker Expected Infant Delivery Method: Spontaneous Vaginal Number of Visits: 12 Review of Systems Constitutional: Denies: Chills, Fever HEENT: Denies: Head Aches, Visual Changes Cardiovascular: Denies: Chest Pain Respiratory: Denies: Cough, Shortness of Breath Gastrointestinal: Denies: Nausea, Vomiting Gynecological: Denies: Vaginal bleeding Physical Exam Vitals: Vital Signs Temp Pulse BP Pulse Ox 98.0 F 107 H 125/86 H 99 10/06/19 05:18 10/06/19 05:20 10/06/19 05:19 10/06/19 05:20 General: Alert, Oriented x3, Cooperative, No apparent distress HEENT: Atraumatic, Normocephalic Cardiovascular: Regular rate, Regular Rhythm, Normal S1, Normal S2 Lungs: Clear to auscultation, Normal air movement Abdomen: Soft, Non Tender, Non-Distended, Gravid Extremities:: No edema, No tenderness/swelling Neurological: Neuro grossly intact Estimated gestational size: Appropriate for gestational size Presentation: Cephalic Cervix Dilation (cm): 6 Station: -2 Effacement (%): 80 - per GUI Norman at 0642h Assessment/Plan All Active Problems (Last Updated 10/06/19 @ 07:[address] Krystyna Costa MD) 39 weeks gestation of (Acute) This is a 24 year-old, G [3], P [2], at 39 1/7 weeks gestational age in active labor, Cat I FHR -Epidural per patient request -Maternal and statuses reassuring -Anticipate vaginal delivery
[2019-10-06] MEDS: fentaNYL-bupivacaine (epidural) 100 ML BAG EPIDURAL (07:31)
[2019-10-06] MEDS: Oxytocin 30 units/NS 500 ml 30 UNITS/500 ML IV.SOLN 334 UNITS IV (09:48)
[2019-10-06] MEDS: Methylergonovine 0.2 MG/ML Ampul IM (09:53)
--- NOTE | 2019-10-06 10:05 | PCM.OPRPT ---
Problem List (1) 39 weeks gestation of Status: Acute (2) (spontaneous vaginal delivery) Status: Acute Vaginal Delivery Maternal Presentation: Active Labor Amniotic Membrane Rupture Type: Artificial Rupture of Membrane time: 93710/06/19 Amniotic Fluid Description: Clear Final CODY: 10/12/19 Gestational age: 39 Weeks and 1 Days Date of Procedure: 10/06/19 Pre-Operative Diagnosis: 39 1/7 weeks gestation Post-Operative Diagnosis: 39 1/7 weeks gestation Surgery/ Procedure Performed: Spontaneous Vaginal Delivery Anesthesiologist: Maureen Alford Type of Anesthesia: Epidural Description of Procedure: Patient was FD/+2 station on my arrival with Cat I FHR. She pushed to deliver a vigorous female over and intact perineum. The was placed on the maternal abdomen and further attended by nursery personnel. The cord was doubly clamped and cut. The placenta delivered spontaneously and appeared intact on inspection. There was an increase in bleeding without hemorrhage. IM Methergine was administered in addition to IV pitocin and intrauterine exam performed with retrieval of retained membranes. Gauze uterine curettage was performed with further retrieval of membranes, on repeat exam, no membranes were palpable and uterine atony resolved with improvement of bleeding. Fundus was firm at the umbilicus Sponge counts were correct x 2. Presentation: Vertex Placental Delivery Description: Spontaneous Placenta Disposition: [facility] Cord Vessel Description: 3 Vessels Nuchal Cord Compression: Without compression Cord Entanglement: None Drain: - - straight cath - urine 400 mL Estimated Blood Loss: 350 ml A gender: Female (1 minute): 8 (5 minute): 10 Episiotomy Description: None Laceration: None Medications given after delivery: IV Pitocin, IM Methergin Complications: None
[2019-10-06] MEDS: Acetaminophen 500 MG Tablet 1000 MG PO (11:12)
[2019-10-06] MEDS: Ibuprofen 600 MG Tablet PO (20:51)
[2019-10-07 00:15] VITALS: BP 116/76; PULSE 66; RESP 14; TEMP 36.6
[2019-10-07 04:20] VITALS: BP 111/66; PULSE 56; RESP 12; TEMP 36.2
--- NOTE | 2019-10-07 06:23 | PCM.PN.OB ---
Patient Problems: Active and Suspected Problems (Last Updated 10/06/19 @ 07:[address] Krystyna Costa MD) (spontaneous vaginal delivery) (Acute) 39 weeks gestation of (Acute) Subjective: Day 1 Objective: Feeling well without complaints. Bleeding minimal. Baby doing well. - Physical Exam Vitals/I&O's: Vital Signs Temp Pulse Resp BP Pulse Ox 97.2 F L 56 L 12 111/66 96 10/07/19 04:20 10/07/19 04:20 10/07/19 04:20 10/07/19 04:20 10/06/19 07:33 Oxygen Delivery Method Room Air Weight: 71.8 kg Body Mass Index (BMI) 25.5 Intake and Output for Last 24 Hours 10/05/19 10/06/19 10/07/19 23:59 23:59 23:59 Intake Total 2636.67 / 2636.67 Output Total 800 / 800 Balance 1836.67 / 1836.67 General: Alert, Oriented x3, Cooperative, No apparent distress HEENT: Atraumatic, Normocephalic Lungs: Normal air movement Abdomen: Soft, Non Tender Extremities: No edema Neurological: Cranial nerves II-XII grossly intact Psych/Mental Status: Normal Affect, Appropriate Laboratory Results 10/06/19 00:00: Blood Type O POSITIVE, Antibody Screen NEGATIVE Current Medications Acetaminophen (Tylenol) 1,000 mg PO Q8H PRN PRN PRN Reason: Pain Score 1-10/10 Last Admin: 10/06/19 11:12 Dose: 1,000 mg Documented by: Bisacodyl (Dulcolax) 10 mg RECTAL UD PRN PRN Reason: If no BM Dibucaine (Dibucaine) 1 applic TOPICAL TID PRN PRN; Protocol PRN Reason: Discomfort Hydrocortisone (Hytone) 1 applic TOPICAL TID PRN PRN; Protocol PRN Reason: Discomfort Ibuprofen (Motrin) 600 mg PO Q6H PRN PRN PRN Reason: Pain Score 1-10/10 Last Admin: 10/06/19 20:51 Dose: 600 mg Documented by: Methylergonovine Maleate (Methergine) 0.2 mg IM X1 PRN PRN Reason: Excess bleeding/uterine atony Last Admin: 10/06/19 09:53 Dose: 0.2 mg Documented by: Ondansetron HCl (Zofran) 4 mg IV Q4H PRN PRN PRN Reason: NAUSEA Multivit/Folic Acid/Iron (Prenatabs Fa) 1 tablet PO DAILY@1200 ART Last Admin: 10/06/19 15:05 Dose: Not Given Documented by: Senna/Docusate Sodium (Senokot-S, Shy-Colace) 1 - 2 tablet PO DAILY PRN PRN PRN Reason: Constipation Simethicone (Mylicon) 80 mg PO PCHS PRN PRN Reason: Indigestion/Stomach pain Sodium Chloride () 5 - 15 ml IV UD PRN PRN Reason: SALINE FLUSH Medical Necessity - Tobacco Use Smoking Status: Never smoker Assessment/Plan All Active Problems (Last Updated 10/06/19 @ 07:[address] Krystyna Costa MD) (spontaneous vaginal delivery) (Acute) 39 weeks gestation of (Acute) 24 yo PPD#1 s/p . Doing well without complaints. Breast feeding. Would like to go home this afternoon. F/u 6w PP visit.
--- NOTE | 2019-10-07 06:29 | PCM.DC.BLA ---
Discharge Summary Date of Admission: 10/06/19 Date of Discharge: 10/07/19 Summary: Patient admitted in active labor. Spontaneous vaginal delivery on admit day 1. Patient and baby doing well day 1. Patient Problems: Active and Suspected Problems (Last Updated 10/06/19 @ 07:[address] Krystyna Costa MD) (spontaneous vaginal delivery) (Acute) 39 weeks gestation of (Acute) - Physical Exam Vitals/I&O's: Vital Signs Temp Pulse Resp BP Pulse Ox 97.2 F L 56 L 12 111/66 96 10/07/19 04:20 10/07/19 04:20 10/07/19 04:20 10/07/19 04:20 10/06/19 07:33 Oxygen Delivery Method Room Air Weight: 71.8 kg Body Mass Index (BMI) 25.5 Intake and Output for Last 24 Hours 10/05/19 10/06/19 10/07/19 23:59 23:59 23:59 Intake Total 2636.67 / 2636.67 Output Total 800 / 800 Balance 1836.67 / 1836.67 Laboratory Results 10/06/19 00:00: Blood Type O POSITIVE, Antibody Screen NEGATIVE Current Medications Acetaminophen (Tylenol) 1,000 mg PO Q8H PRN PRN PRN Reason: Pain Score 1-10/10 Last Admin: 10/06/19 11:12 Dose: 1,000 mg Documented by: Bisacodyl (Dulcolax) 10 mg RECTAL UD PRN PRN Reason: If no BM Dibucaine (Dibucaine) 1 applic TOPICAL TID PRN PRN; Protocol PRN Reason: Discomfort Hydrocortisone (Hytone) 1 applic TOPICAL TID PRN PRN; Protocol PRN Reason: Discomfort Ibuprofen (Motrin) 600 mg PO Q6H PRN PRN PRN Reason: Pain Score 1-10/10 Last Admin: 10/06/19 20:51 Dose: 600 mg Documented by: Methylergonovine Maleate (Methergine) 0.2 mg IM X1 PRN PRN Reason: Excess bleeding/uterine atony Last Admin: 10/06/19 09:53 Dose: 0.2 mg Documented by: Ondansetron HCl (Zofran) 4 mg IV Q4H PRN PRN PRN Reason: NAUSEA Multivit/Folic Acid/Iron (Prenatabs Fa) 1 tablet PO DAILY@1200 ART Last Admin: 10/06/19 15:05 Dose: Not Given Documented by: Senna/Docusate Sodium (Senokot-S, Shy-Colace) 1 - 2 tablet PO DAILY PRN PRN PRN Reason: Constipation Simethicone (Mylicon) 80 mg PO PCHS PRN PRN Reason: Indigestion/Stomach pain Sodium Chloride () 5 - 15 ml IV UD PRN PRN Reason: SALINE FLUSH
--- NOTE | 2019-10-07 06:31 | DCINST_ITS ---
Discharge Diet: No Restrictions Discharge Activity: Return to Normal Activity, May Drive, May Shower May resume sexual activity in: 6 weeks Weight Bearing Status: Weight bearing as tolerated Call your doctor if your incision/area has: Sudden Increased Bleeding, Increased Pain/ Swelling, Foul Smelling Discharge Call your doctor if you observe: Fever of 101 or Higher Additional Instructions: If you experience any of the following, contact your healthcare provider. * Bleeding that soaks a pad every hour for 2 hours * Fever 100.4 or higher * Unrelieved incision or abdominal pain * Swelling, redness, discharge or bleeding from your incision or episiotomy site * Your incision begins to separate * Problems urinating (including inability to urinate or burning while urinating). * Visual changes * Severe headache * Flu-like symptoms * Pain or redness in one of both of your breasts * Pain, warmth, tenderness or swelling in your legs, especially the calf area * Frequent nausea and vomiting * Symptoms of depression or anxiety If you experience any of the following, call 911 or go to the nearest Emergency Room. * Chest pain * Problems breathing * Seizure activity * Partial or complete paralysis of a body part, slurred speech, weakness or drooping of the face, or a sudden inability to walk or hold your balance Allergies/Adverse Reactions: Allergies No Known Allergies Allergy (Verified 10/05/19 22:15) Medications to take at Discharge Tablet 1 tab PO DAILY 03/03/18 Please Follow Up With: Krystyna Sheets MD When: 6 weeks Primary Care Physician: Care Physician,No Primary [Primary Care Provider] - Test Results: Test results from this visit will be discussed in further detail at your follow- up appointment, if applicable. Proposed Discharge Date: 10/07/19
--- NOTE | 2019-10-07 06:31 | PCM.DCVAG ---
Discharge Diet: No Restrictions Discharge Activity: Return to Normal Activity, May Drive, May Shower May resume sexual activity in: 6 weeks Weight Bearing Status: Weight bearing as tolerated Call your doctor if your incision/area has: Sudden Increased Bleeding, Increased Pain/ Swelling, Foul Smelling Discharge Call your doctor if you observe: Fever of 101 or Higher Additional Instructions: If you experience any of the following, contact your healthcare provider. Bleeding that soaks a pad every hour for 2 hours Fever 100.4 or higher Unrelieved incision or abdominal pain Swelling, redness, discharge or bleeding from your incision or episiotomy site Your incision begins to separate Problems urinating (including inability to urinate or burning while urinating). Visual changes Severe headache Flu-like symptoms Pain or redness in one of both of your breasts Pain, warmth, tenderness or swelling in your legs, especially the calf area Frequent nausea and vomiting Symptoms of depression or anxiety If you experience any of the following, call 911 or go to the nearest Emergency Room. Chest pain Problems breathing Seizure activity Partial or complete paralysis of a body part, slurred speech, weakness or drooping of the face, or a sudden inability to walk or hold your balance Allergies/Adverse Reactions: Allergies No Known Allergies Allergy (Verified 10/05/19 22:15) Medications to take at Discharge Tablet 1 tab PO DAILY 03/03/18 Please Follow Up With: Krystyna Sheets MD When: 6 weeks Primary Care Physician: Care Physician,No Primary [Primary Care Provider] - Test Results: Test results from this visit will be discussed in further detail at your follow-up appointment, if applicable. Proposed Discharge Date: 10/07/19
--- NOTE | 2019-10-07 06:35 | PCM.DC.SUM ---
Discharge Date and Diagnosis - Problem List Patient Problems: Active and Suspected Problems (Last Updated 10/06/19 @ 07:[address] Krystyna Costa MD) (spontaneous vaginal delivery) (Acute) 39 weeks gestation of (Acute) Date of Admission: 10/06/19 Date of Discharge: 10/07/19 - Primary Discharge Diagnosis Acute Problems: Active Problems (Last Updated 10/06/19 @ 07:[address] Krystyna Costa MD) (spontaneous vaginal delivery) (Acute) 39 weeks gestation of (Acute) Hospital Course and Treatment Imaging Results: None Operations: None - Spontaneous vaginal delivery Procedures: None Summary of Care Provided: The patient is a 24 year old admitted in active labor. Had spontaneous vaginal delivery on day of admission. Routine course. Desires discharge home day 1. [] Patient Problems: Active and Suspected Problems (Last Updated 10/06/19 @ 07:[address] Krystyna Costa MD) (spontaneous vaginal delivery) (Acute) 39 weeks gestation of (Acute) - Physical Exam Vitals/I&O's: Vital Signs Temp Pulse Resp BP Pulse Ox 97.2 F L 56 L 12 111/66 96 10/07/19 04:20 10/07/19 04:20 10/07/19 04:20 10/07/19 04:20 10/06/19 07:33 Oxygen Delivery Method Room Air Weight: 71.8 kg Body Mass Index (BMI) 25.5 Intake and Output for Last 24 Hours 10/05/19 10/06/19 10/07/19 23:59 23:59 23:59 Intake Total 2636.67 / 2636.67 Output Total 800 / 800 Balance 1836.67 / 1836.67 General: Alert, Oriented x3, Cooperative, No apparent distress HEENT: Atraumatic, Normocephalic Lungs: Normal air movement Abdomen: Soft, Non Tender, Non-Distended Extremities: No edema Skin: No rashes Psych/Mental Status: Normal Affect, Appropriate Laboratory Results 10/06/19 00:00: Blood Type O POSITIVE, Antibody Screen NEGATIVE Current Medications Acetaminophen (Tylenol) 1,000 mg PO Q8H PRN PRN PRN Reason: Pain Score 1-10/10 Last Admin: 10/06/19 11:12 Dose: 1,000 mg Documented by: Bisacodyl (Dulcolax) 10 mg RECTAL UD PRN PRN Reason: If no BM Dibucaine (Dibucaine) 1 applic TOPICAL TID PRN PRN; Protocol PRN Reason: Discomfort Hydrocortisone (Hytone) 1 applic TOPICAL TID PRN PRN; Protocol PRN Reason: Discomfort Ibuprofen (Motrin) 600 mg PO Q6H PRN PRN PRN Reason: Pain Score 1-10/10 Last Admin: 10/06/19 20:51 Dose: 600 mg Documented by: Methylergonovine Maleate (Methergine) 0.2 mg IM X1 PRN PRN Reason: Excess bleeding/uterine atony Last Admin: 10/06/19 09:53 Dose: 0.2 mg Documented by: Ondansetron HCl (Zofran) 4 mg IV Q4H PRN PRN PRN Reason: NAUSEA Multivit/Folic Acid/Iron (Prenatabs Fa) 1 tablet PO DAILY@1200 ART Last Admin: 10/06/19 15:05 Dose: Not Given Documented by: Senna/Docusate Sodium (Senokot-S, Shy-Colace) 1 - 2 tablet PO DAILY PRN PRN PRN Reason: Constipation Simethicone (Mylicon) 80 mg PO PCHS PRN PRN Reason: Indigestion/Stomach pain Sodium Chloride () 5 - 15 ml IV UD PRN PRN Reason: SALINE FLUSH Discharge Diet: No Restrictions Discharge Activity: Return to Normal Activity, May Drive, May Shower May resume sexual activity in: 6 weeks Weight Bearing Status: Weight bearing as tolerated Call your doctor if your incision/area has: Sudden Increased Bleeding, Increased Pain/ Swelling, Foul Smelling Discharge Call your doctor if you observe: Fever of 101 or Higher Home Medications: Medications to take at Discharge Tablet 1 tab PO DAILY 03/03/18 Primary Care Physician: Care Physician,No Primary [Primary Care Provider] - Please Follow Up With: Krystyna Sheets MD Medical Necessity - Tobacco Use Smoking Status: Never smoker Meaningful Use Info - AMI/Post PCI/Angioplasty Aspirin given w/in 24hrs of arrival?: No Reason no aspirin w/in 24hrs of arrival?: no need ASA at discharge?: No Antiplatelet Therapy at Discharge:: No Statins at discharge?: No Troy/ARB at discharge?: No Beta Fredy at discharge?: No Done w/ Acute MT measure.: No - CHF TROY/ARB ordered at discharge?: No - CVA Therapy Assessed for PT,OT and/or ST?: No - Ischemic Stroke Antithrombotic order at d/c?: No Dx of Atrial fib/flutter?: No Anticoagulant at discharge?: No Primary Dx Acute Ischemic CVA?: No IV tPA ordered during stay?: No - VTE Anticoag overlap given w/in hospital stay or rx'd at dc?: No Pt receive overlap for 5 days?: No [id number]: [id number] Vaginal Delivery global pkg Multi Select Codes - Urinary/Genital Urinary/Genital CPT Codes: 76838 Vaginal Delivery global pkg
[2019-10-07 08:05] VITALS: BP 116/72; PULSE 63; RESP 16; TEMP 36.4
[2019-10-07 13:20] VITALS: BP 128/85; PULSE 63; RESP 16; TEMP 36.4
== END 2019-10-07 15:05 | disposition home or self-care (01) | DRG 560 ==
LOC: WPOUT 10-07 09:49
PROVIDERS: Admitting Provider Obstetrics & Gynecology; Visit Provider Obstetrics & Gynecology
DX: O62.2 Other uterine inertia (principal); Z3A.39 39 weeks gestation of pregnancy; Z37.0 Single live birth
CPT/HCPCS: 59025; 59050; 84112; 85025; 86850; 86900; 86901; 96372; 99218; J7120; A4216; G0378

== ENCOUNTER → 2020-08-12 12:16 | Outpatient (CLI) | payer MEDICAID, SELFPAY ==
[2019-10-05 22:07] VITALS: BMI 25.5
[2020-08-14 03:07] LABS: Chlamydia By Nucleic Acid AMP Negative (Negative)
[2020-08-14 08:02] LABS: Gonococcus By Nucleic Acid AMP Negative (Negative)
== END ==
PROVIDERS: Visit Provider Obstetrics & Gynecology
DX: Z11.3 Encounter for screening for infections with a predominantly sexual mode of transmission (principal)
CPT/HCPCS: 87491; 87591

== ENCOUNTER → 2020-10-09 | Outpatient (CLI) | payer MEDICAID, SELFPAY ==
[2019-10-05 22:07] VITALS: BMI 25.5
[2020-10-12 20:08] LABS: Chlamydia By Nucleic Acid AMP Negative (Negative)
[2020-10-12 21:44] LABS: Gonococcus By Nucleic Acid AMP Negative (Negative)
== END | disposition home or self-care (01) ==
LOC: LABSPEC 10:02
PROVIDERS: Visit Provider Obstetrics & Gynecology
DX: Z11.3 Encounter for screening for infections with a predominantly sexual mode of transmission (principal)
CPT/HCPCS: 87491; 87591

== ENCOUNTER → 2020-11-18 14:31 | Outpatient (CLI) | payer MEDICAID, SELFPAY ==
[2020-11-18 16:11] LABS: Absolute Lymphocyte Count 2.35 X10^3/uL (0.83-4.51); Absolute Neutrophil Count 6.8 X10^3/uL (2.0-7.7); Basophil# 0.04 X10^3/uL; Basophil% 0.4 % (0-1); Eosinophil# 0.05 X10^3/uL; Eosinophils% 0.5 % (0-5); Hematocrit 39.1 % (37-47); Hemoglobin 13.3 g/dL (12.0-15.0); Lymphocyte # 2.35 X10^3/ul (0.83-4.51); Lymphocyte % 23.9 % (19-41); Mean Corpuscular Hgb 30.5 pg (27.0-32.0); Mean Corpuscular Volume 89.7 fL (81-99); Mean Platelet Vol. 11.6 fl (6.2-12.0); Monocyte# 0.59 X10^3/uL; NRBC Flagged by Analyzer 0 % (0-5); Neutrophil # 6.76 X10^3/uL (2.7-7.7); Neutrophil % 68.8 % (47-70); Platelet Count 223 K/mm3 (150-450); RBC Distribution Width CV 12.9 % (11.6-14.6); RBC Distribution Width SD 42.6 fl (35.1-43.9); Red Blood Count 4.36 M/mm3 (4.2-5.4); White Blood Count 9.8 K/mm3 (4.4-11.0)
[2020-11-18 16:19] LABS: Amphetamine Urine VISTA NEGATIVE (<1000 ng/mL); Barbiturate Urine VISTA NEGATIVE (< 200 ng/mL); Benzodiazepine Urine VISTA NEGATIVE (< 200 ng/mL); Cocaine Urine VISTA NEGATIVE (< 300 ng/mL); Ecstacy Urine VISTA NEGATIVE (< 500 ng/mL); Methadone Urine VISTA NEGATIVE (< 300 ng/mL); PCP Urine VISTA NEGATIVE (< 25 ng/mL); THC Urine VISTA NEGATIVE (< 50 ng/mL); Vista UDS pH Range 6
[2020-11-18 16:30] LABS: Thyroid Stim Hormone (TSH) 2.23 uIU/mL (0.358-3.74)
[2020-11-18 16:53] LABS: Color, Urine Yellow (Yellow); Glucose, Dipstick Normal (Normal); Ketone-Dipstick Negative (Negative); Leukocyte Esterase-Dipstick 25 /ul (Negative); Nitrite-Dipstick Negative (Negative); Occult Blood-Urine Negative /ul (Negative); Protein-Dipstick Negative (Negative); Urine Bilirubin Dipstick Negative (Negative); Urine Clarity Cloudy (Clear); Urine Urobilinogen Normal (Normal)
[2020-11-18 17:24] LABS: HIV - WCH Non-Reactive (Nonreactive); Hepatitis B Surface Antigen Non-Reactive (Nonreactive); Hepatitis C Antibody Non-Reactive (Nonreactive); Rubella IgG Reactive (Nonreactive); Syphilis Antibodies Non-reactive
== END ==
PROVIDERS: Visit Provider Obstetrics & Gynecology
DX: Z34.81 Encounter for supervision of other normal pregnancy, first trimester (principal)
CPT/HCPCS: 36415; 80307; 81002; 84443; 85025; 86703; 86762; 86780; 86803; 87086; 87088; 87340

== ENCOUNTER 2021-03-01 09:58 | Outpatient (CLI) | payer MEDICAID, SELFPAY ==
[2021-03-01 11:08] LABS: Hematocrit 34.4 % (37-47); Hemoglobin 11.6 g/dL (12.0-15.0); Mean Corp Hgb Conc 33.7 g/dL (32-36); Mean Corpuscular Hgb 32.3 pg (27.0-32.0); Mean Corpuscular Volume 95.8 fL (81-99); Mean Platelet Vol. 11.1 fl (6.2-12.0); Platelet Count 193 K/mm3 (150-450); RBC Distribution Width CV 13.8 % (11.6-14.6); Red Blood Count 3.59 M/mm3 (4.2-5.4); White Blood Count 10.2 K/mm3 (4.4-11.0)
[2021-03-01 11:26] LABS: Glucose Challenge Gest 1H 50g 75 mg/dL (70-140)
== END 2021-03-01 23:59 | disposition short-term general hospital (02) ==
LOC: WOBLAB 09:59
PROVIDERS: Visit Provider Obstetrics & Gynecology
DX: Z34.82 Encounter for supervision of other normal pregnancy, second trimester (principal)
CPT/HCPCS: 36415; 82950; 85027

== ENCOUNTER 2021-04-29 12:55 | Outpatient (CLI) | payer MEDICAID, SELFPAY ==
--- NOTE | 2021-04-29 12:59 | ECHOD_ITS ---
Reason For Study: SOB/DYSPNEA Procedure This was a 2D Doppler, Color Flow transthoracic echocardiogram. Exam performed in department. Left Ventricle Normal LV size. The estimated ejection fraction is 55 %. No evidence for diastolic dysfunction. No regional wall motion abnormalities noted. Right Ventricle Normal RV size. Normal systolic function. Atria Normal left atrium. Normal right atrium. No doppler evidence for ASD. Mitral Valve There is no mitral valve stenosis. No mitral valve insufficiency. Tricuspid Valve There is no tricuspid stenosis. Trivial tricuspid valve insufficiency. Pulmonary artery systolic pressure is 25 mmHg. Aortic Valve Trisinus/trileaflet aortic valve. There is no aortic stenosis. No aortic valve insufficiency. Pulmonic Valve There is no pulmonic valvular stenosis. Trivial pulmonic valve insufficiency. Great Vessels Normal aortic root. Pericardium/Pleural No pericardial effusion. MMode/2D Measurements & Calculations LVIDd: 4.9 cm IVSd: 0.93 cm Ao root diam: 3.0 cm LVIDs: 3.6 cm LVPWd: 1.0 cm RVDd: 3.3 cm FS: 25.4 % LAV(MOD-bp): 53.4 ml LA A4 area: 16.7 cm2 LA dimension(2D): 3.5 cm LAV(MOD-bp) Indexed: 28.8 ml/m2 LAV(MOD-sp2): 49.5 ml LAV(MOD-sp4): 51.7 ml RA A4 area: 11.3 cm2 Time Measurements MV dec time: 0.16 sec Doppler Measurements & Calculations MV E max umberto: 68.0 cm/sec Lat Peak E' Umberto: 14.0 cm/sec Med Peak E' Umberto: 12.7 cm/sec MV A max umberto: 48.6 cm/sec E/E' lat: 4.9 E/E' med: 5.4 MV E/A: 1.4 Ao V2 max: 126.3 cm/sec LV V1 max: 101.8 cm/sec PA V2 max: 79.2 cm/sec Ao max P.4 mmHg LV V1 max P.1 mmHg TR max umberto: 214.4 cm/sec TR max P.4 mmHg ECHO/Echo Complete Interpretation Summary The estimated ejection fraction is 55 %. No evidence for diastolic dysfunction. Ordering Physician: Krystyna Sheets Referring Physician: Krystyna Sheets Performed By: Dulce Maria Burdick RDCS, RVT
== END 2021-04-29 23:59 | disposition home or self-care (01) ==
LOC: CVS 12:58
PROVIDERS: Referring Provider Obstetrics & Gynecology; Visit Provider Obstetrics & Gynecology
DX: O99.891 Other specified diseases and conditions complicating pregnancy (principal); R06.00 Dyspnea, unspecified; Z3A.32 32 weeks gestation of pregnancy
CPT/HCPCS: 93306

== ENCOUNTER 2021-05-11 13:25 | Outpatient (CLI) | payer MEDICAID, SELFPAY | END 2021-05-11 23:59 | disposition home or self-care (01) | LOC: LABSPEC 13:26 | PROVIDERS: Visit Provider Obstetrics & Gynecology | DX: Z36.85 Encounter for antenatal screening for Streptococcus B (principal) | CPT/HCPCS: 87081 ==

== ENCOUNTER 2021-05-23 03:00 | Inpatient (IN) | payer MEDICAID, SELFPAY ==
[2021-05-23] VITALS (88 sets, daily range): BP systolic 105–141; BP diastolic 65–102; PULSE 64–142; RESP 16; TEMP 36.5–37.3; O2SAT 93–100; BMI 26.9
[2021-05-23 02:54] LABS: ROM Internal Control Test YES-OK TO RESULT pt. (Internal QC)
[2021-05-23 02:55] LABS: ROM Patient Test POSITIVE (Negative)
[2021-05-23] MEDS: Lactated Ringers 1,000 ML 50 ML IV (03:15)
[2021-05-23 03:32] LABS: Absolute Lymphocyte Count 2.88 X10^3/uL (0.83-4.51); Absolute Neutrophil Count 6.8 X10^3/uL (2.0-7.7); Basophil# 0.05 X10^3/uL; Basophil% 0.5 % (0-1); Eosinophil# 0.07 X10^3/uL; Eosinophils% 0.7 % (0-5); Hematocrit 36.3 % (37-47); Hemoglobin 12.5 g/dL (12.0-15.0); Lymphocyte # 2.88 X10^3/ul (0.83-4.51); Lymphocyte % 27.2 % (19-41); Mean Corp Hgb Conc 34.4 g/dL (32-36); Mean Corpuscular Hgb 32.1 pg (27.0-32.0); Mean Corpuscular Volume 93.3 fL (81-99); Mean Platelet Vol. 11.5 fl (6.2-12.0); Monocyte# 0.63 X10^3/uL; NRBC Flagged by Analyzer 0 % (0-5); Neutrophil # 6.84 X10^3/uL (2.7-7.7); Neutrophil % 64.7 % (47-70); Platelet Count 162 K/mm3 (150-450); RBC Distribution Width CV 14.8 % (11.6-14.6); RBC Distribution Width SD 50.4 fl (35.1-43.9); Red Blood Count 3.89 M/mm3 (4.2-5.4); White Blood Count 10.6 K/mm3 (4.4-11.0)
[2021-05-23] MEDS: Lactated Ringers 500 ML 999 ML IV ×2 (05:00→06:58)
[2021-05-23] MEDS: Oxytocin 30 units/NS 500 ml 30 UNITS/500 ML IV.SOLN IV (05:11)
[2021-05-23] MEDS: fentaNYL-bupivacaine (epidural) 100 ML BAG EPIDURAL (05:58)
[2021-05-23] MEDS: Ondansetron 4 MG/2 ML Vial IV (09:47)
[2021-05-23] MEDS: Oxytocin 30 units/NS 500 ml 30 UNITS/500 ML IV.SOLN 334 UNITS IV (10:06)
--- NOTE | 2021-05-23 10:17 | PCM.HP.BLA ---
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 tests. SARS-CoV-2 Ag Resp Ql IA.rapid Normal Reference Range: Negative SARS-CoV-2 (COVID 19) Negative RAPID METHOD Quidel Giuliana Analyzer KWESI O POSITIVE Group B Beta Streptococcus is not isolated. [facility] [address] [address] Echo Complete 04/29/21 1314 MR#: [id number] Acct: [id number] Name: VESTA HERNANDEZ Rep #: [id number] : 1995 25 From: Jordan Bynum MD Attending Dr: Dr. Krystyna Costa MD Status : REG CLI Ordering Dr: Krystyna Sheets MD Date: 04/29/21 Location: [facility] Sex: F C Admitted: Reason For Study: SOB/DYSPNEA Procedure This was a 2D Doppler, Color Flow transthoracic echocardiogram. Exam performed in department. Left Ventricle Normal LV size. The estimated ejection fraction is 55 %. No evidence for diastolic dysfunction. No regional wall motion abnormalities noted. Right Ventricle Normal RV size. Normal systolic function. Atria Normal left atrium. Normal right atrium. No doppler evidence for ASD. Mitral Valve There is no mitral valve stenosis. No mitral valve insufficiency. Tricuspid Valve There is no tricuspid stenosis. Trivial tricuspid valve insufficiency. Pulmonary artery systolic pressure is 25 mmHg. Aortic Valve Trisinus/trileaflet aortic valve. There is no aortic stenosis. No aortic valve insufficiency. Pulmonic Valve There is no pulmonic valvular stenosis. Trivial pulmonic valve insufficiency. Great Vessels Normal aortic root. Pericardium/Pleural No pericardial effusion. MMode/2D Measurements Calculations LVIDd: 4.9 cm IVSd: 0.93 cm Ao root diam: 3.0 cm LVIDs: 3.6 cm LVPWd: 1.0 cm RVDd: 3.3 cm FS: 25.4 % LAV(MOD-bp): 53.4 ml LA A4 area: 16.7 cm2 LA dimension(2D): 3.5 cm LAV(MOD-bp) Indexed: 28.8 ml/m2 LAV(MOD-sp2): 49.5 ml LAV(MOD-sp4): 51.7 ml RA A4 area: 11.3 cm2 Time Measurements MV dec time: 0.16 sec Doppler Measurements Calculations MV E max umberto: 68.0 cm/sec Lat Peak E' Umberto: 14.0 cm/sec Med Peak E' Umberto: 12.7 cm/sec MV A max umberto: 48.6 cm/sec E/E' lat: 4.9 E/E' med: 5.4 MV E/A: 1.4 Ao V2 max: 126.3 cm/sec LV V1 max: 101.8 cm/sec PA V2 max: 79.2 cm/sec Ao max P.4 mmHg LV V1 max P.1 mmHg TR max umberto: 214.4 cm/sec TR max P.4 mmHg ECHO/Echo Complete Interpretation Summary The estimated ejection fraction is 55 %. No evidence for diastolic dysfunction. _ Ordering Physician: Krystyna Sheets Referring Physician: Krystyna Sheets Performed By: Dulce Maria Burdick RDCS, RVT 04/30/21 1040 Date Jordan Bynum MD CC: Dr. 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 Mixed Gram Positive Organisms [place] Count 1000-10,000 O POSITIVE == ==== Impression /Plan: 38 wks + 4 days intrauterine in labor. Preparations in progress for delivery.
--- NOTE | 2021-05-23 10:18 | EX.PCM.OBRPT ---
Maternal Data Information Final CODY: 06/02/21 Gestational age: 38w4d gestation Vaginal Delivery Maternal Presentation Maternal Presentation: Spontaneous Rupture of Membranes Operative Information Date of Procedure: 05/23/21 Pre-Operative Diagnosis: IUP Post-Operative Diagnosis: IUP Surgery / Procedure Performed: Spontaneous Vaginal Delivery Type of Anesthesia: Epidural Drain: Singh to straight drain Estimated Blood Loss: 250 cc Findings Description of Procedure: Spontaneous vaginal delivery of a viable male infant with Apgars of 9/9 from an occiput anterior presentation with clear amniotic fluid and normal three-vessel placenta. No episiotomy or laceration. Sponges okay. Delivery physician: Neel Ballard MD. Presentation: Vertex Amniotic Membrane Rupture Type: Spontaneous Amniotic Fluid Description: Clear Placental Delivery Description: Spontaneous Placenta Disposition: [facility] Cord Vessel Description: 3 Vessels Cord Entanglement: None A Gender: Male (1 minute): 9 (5 minute): 9 Post Vaginal Delivery Medications Given After Delivery: IV Pitocin Episiotomy Description: None Laceration: None Complication Complications: None
[2021-05-23] MEDS: Methylergonovine 0.2 MG/ML Ampul IM (11:23)
[2021-05-23] MEDS: Ibuprofen 600 MG Tablet PO ×2 (12:02→19:56)
--- NOTE | 2021-05-23 12:35 | NURSING ---
Report given to Margaret MESSER, taking over pt and infant care at this time.
[2021-05-24 00:58] VITALS: BP 123/87; PULSE 61; RESP 16; TEMP 36.6
[2021-05-24 04:49] VITALS: BP 119/73; PULSE 57; RESP 16; TEMP 36.5
[2021-05-24] MEDS: Ibuprofen 600 MG Tablet PO (07:29)
[2021-05-24 07:40] VITALS: BP 117/84; PULSE 70; RESP 17; TEMP 36.3
--- NOTE | 2021-05-24 08:39 | PCM.PN.OB ---
Subjective Subjective day 1. Doing well. Lochia minimal. Breast-feeding going well. Objective Data Objective Data Vital Signs: Vital Signs Temp Pulse Resp BP Pulse Ox 97.7 F L 57 L 16 119/73 99 05/24/21 04:49 05/24/21 04:49 05/24/21 04:49 05/24/21 04:49 05/23/21 12:04 Oxygen Delivery Method Room Air Weight: 75.75 kg Body Mass Index (BMI) 26.9 Intake & Output: Intake and Output for Last 24 Hours 05/22/21 05/23/21 05/24/21 23:59 23:59 23:59 Intake Total 2545.37 / 2545.37 Output Total 2100 / 2100 Balance 445.37 / 445.37 Lab / Micro Data Result Diagrams: 05/23/21 03:15 Micro: Microbiology 05/23/21 03:20 Nasal Secretion SARS-CoV-2 Antigen (Rapid) - Final Physical Exam Const alert, oriented x3 and no apparent distress HEENT normocephalic Head and Scalp: atraumatic Neck full ROM Resp normal respiratory effort Cardio regular rate GI normal to inspection, nondistended, normoactive bowel sounds GI Narrative: Uterus 2 cm below umbilicus Back/Spine normal ROM Extremity normal to inspection Extremity Narrative: Minimal pedal edema Neuro no focal motor deficits and no sensory deficits noted Psych mental status grossly normal and affect normal Assessment & Plan (1) (spontaneous vaginal delivery): PLAN: day 1 status post . Breast-feeding going well. Discharge home today with 2-week telehealth visit and 6-week visit.
--- NOTE | 2021-05-24 08:40 | PCM.DC ---
Discharge Instructions Diet Discharge Diet: No restrictions Activity Discharge Activity: Return to Normal Activity and May Shower May resume sexual activity in: 4-6 weeks Weight Bearing Status: Weight bearing as tolerated Lifting Restrictions: No greater than 25 pounds Dressing / Incision Call your doctor if you observe: Fever of 101 or Higher, Change in Color, Inability to urinate, Using more than 1 pad per hour, Shortness of breath, Dizziness, Swelling in the ankles, Chest pain and Calf discomfort Follow Up Care Please Follow Up With: Krystyna Sheets MD When: 2-week telehealth appointment and 6-week visit Test Results: Test results from this visit will be discussed in further detail at your follow-up appointment, if applicable. Discharge Plan Admission Admit Date/Time: 05/23/21 03:00 Primary Reason for Your Visit: Vaginal Delivery Attending Provider: Neel Ballard Primary Care Provider: Care Physician,Cecilia Primary Discharge Orders/Prescriptions Prescriptions: No Action Tablet 1 tab PO DAILY Qty: 0 RF: 0 Referrals / Follow Up: Care Physician,No Primary [Primary Care Provider] - Disposition Disposition (needs filled in before D/C Order can be placed): Home, Self Care
[2021-05-24 12:00] VITALS: BP 120/89; PULSE 83; RESP 15; TEMP 36.7
--- NOTE | 2021-05-24 12:00 | CASEMGMT ---
Social Work Brief Assessment Labor and Delivery Unit Patient Address: [facility] [place] [address] Phone number: [phone] Date of Referral/Notification: 05.23.2021 Time of Referral: 1238 Referred By: Dr. Ballard Date of Intervention: 05.24.2021 Time of Intervention: 1200 Reason for Referral: Maternal history of anxiety Informant: Medical record and mother of baby (MOB) Donna France; father of baby (FOB) Paul Brown present for part of conversation. History: MOB is a 25 year old single female, involved with the FOB for the last 5 years. MOB and FOB now have 3 children together, as well as MOB and FOB each having an additional child from prior relationships. MOB's children include: Melvina (born 03.23.2014), Christian Brown (born 03.03.2018), Skip Brown (born 10.06.2019) and baby Jamin Brown (born 05.23.2021). FOB's child from prior relationship with Iman Brown, who is the same age as Melvina. FOB is employed and MOB stays at home currently. FOB reports to be well financially at this time time. MOB has high school education. No issues with learning or comprehension. MOB denies history of substance use issues and drug screen on 11.18.2020 negative. MOB had history of anxiety and depression, currently treated with Zoloft. Gallagher screen a 12 in January 2021 but at time of this assessment score down to 6. No history reported of SI or HI. Denies any children services involvement or legal issues. [place] baby weighted 8 pounds 5 ounces at . Apgars 9 and 9. Assessment: Met with MOB and FOB together and then alone with MOB. Parents cooperative, talkative, and engaged in conversation. Deny concerns with housing or ability to meet basic needs at home. Report to have necessary supplies to care for baby. Active with WIC and JFS for additional financial support. No issues with transportation and both parents drive. MOB reports moved from [place] to [place] last years and realized was . Decided to move back to [place] to deliver and raise baby. These changes and re-establishing with work and housing in [place] factored into stress levels during , and MOB believes to higher depression score during . MOB reports to be feeling better, things have leveled out at home. Plans to remain on antidepressant in the timeframe. No voiced concerns by nursing staff regarding parent/child interactions or bonding. 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 MOB had good eye contact, bright affect and congruent mood. Privately, MOB denies any safety concerns at home, or history of domestic violence issues with the FOB. MOB accepting of resource lists and information for home going. Reports to feel a connection to the baby. Plan: MOB and baby to home. Provided resources for [facility] and mood and anxiety resources that MOB can utilize if needed at home going. No further needs requested or indicated. -KEVYN Hyman, DIRECTOR EMERGENCY DEPARTMENT *This note was generated with Acu[employer] dictation software. It may contain incorrect words, spelling, and punctuation that were not noted in review of the chart prior to signing*
== END 2021-05-24 14:25 | disposition home or self-care (01) | DRG 560 ==
LOC: WPOUT 03:02 → WP 03:02
PROVIDERS: Admitting Provider Obstetrics & Gynecology; Visit Provider Obstetrics & Gynecology
DX: O80 Encounter for full-term uncomplicated delivery (principal); Z37.0 Single live birth; Z3A.38 38 weeks gestation of pregnancy; Z87.442 Personal history of urinary calculi; Z90.49 Acquired absence of other specified parts of digestive tract
CPT/HCPCS: 59025; 59050; 84112; 85025; 86850; 86900; 86901; 87426; 99218; J7120; G0378; J2405

== ENCOUNTER → 2023-09-12 | Outpatient (CLI) | payer MEDICAID, SELFPAY ==
--- NOTE | 2023-09-12 08:03 | US_ITS ---
STUDY: FIRST TRIMESTER OBSTETRICAL ULTRASOUND REASON FOR EXAM: Female, 28 years old viability LMP: 07/12/2023 TECHNIQUE: Transabdominal TECHNICAL QUALITY: Adequate. PRIOR ULTRASOUND: None. FINDINGS: There is visualization of a single gestational sac in a normal intrauterine position. The mean sac diameter (MSD) measures 44 mm, indicating an estimated gestational age (EGA) of 9 weeks, 6 days. The gestational sac shape is within normal limits. There is a visualized yolk sac. The yolk sac measures 4 mm. The placenta is non-visualized. There is visualization of a live embryo. The crown-rump length (CRL) measures 26 mm, indicating an estimated gestational age (EGA) of 9 weeks, 1 days. There is demonstrated cardiac activity with a heart rate of 175 bpm. The estimated gestation age (EGA) by LMP is 8 weeks, 6 days. The estimated date of delivery (CODY) by LMP is 04/17/2024. The estimated gestation age (EGA) by US is 9 weeks, 4 days. The estimated date of delivery (CODY) by US is 04/12/2024. The uterus measures 12.5 x 8.5 x 9.5 cm. There is no demonstrated uterine fibroid. The cervix is closed. The right ovary measures 3.8 x 2.7 x 3.1 cm. There is no right ovarian cyst. There is no visualized right adnexal mass or complex lesion. The left ovary measures 2.3 x 1.0 x 1.3 cm. There is no left ovarian cyst. There is no visualized left adnexal mass or complex lesion. There is no fluid in the cul de sac. US/Transvaginal w/Preg US IMPRESSION: Living intrauterine of 9 weeks 4 days as described above. Electronically Signed: Anselmo Carmichael MD at 10:57 EDT ,
== END | disposition home or self-care (01) ==
PROVIDERS: Referring Provider Advanced Practice Midwife; Visit Provider Advanced Practice Midwife
DX: Z34.90 Encounter for supervision of normal pregnancy, unspecified, unspecified trimester (principal)
CPT/HCPCS: 76817

== ENCOUNTER → 2023-09-14 | Outpatient (CLI) | payer MEDICAID, SELFPAY | END | disposition home or self-care (01) | LOC: LABSPEC 16:25 | PROVIDERS: Referring Provider Advanced Practice Midwife; Visit Provider Advanced Practice Midwife | DX: O09.90 Supervision of high risk pregnancy, unspecified, unspecified trimester (principal); Z3A.00 Weeks of gestation of pregnancy not specified | CPT/HCPCS: 87086 ==

== ENCOUNTER → 2023-10-12 | Outpatient (CLI) | payer MEDICAID, SELFPAY ==
[2023-10-18 16:26] LABS: HPV Reflexed? NOT INDICATED
== END | disposition home or self-care (01) ==
LOC: LABSPEC 14:38
PROVIDERS: Referring Provider Advanced Practice Midwife; Visit Provider Advanced Practice Midwife
DX: Z12.4 Encounter for screening for malignant neoplasm of cervix (principal)
CPT/HCPCS: 88175; G0145

== ENCOUNTER 2023-10-16 10:40 | Day surgery (SDC) | payer MEDICAID, SELFPAY ==
[2023-10-16] VITALS (10 sets, daily range): BP systolic 99–130; BP diastolic 60–89; PULSE 58–103; RESP 12–20; TEMP 36.1–37; O2SAT 97–100; BMI 23.6
--- NOTE | 2023-10-16 | POC_PTH ---
PATIENT: ELIZABETH HERNANDEZ [place] [facility] [place][id number] AGE/SX: 28/F ROOM: RE10/16/[address]: Dr. Vera Love MD : 1995 BED: DIS: 10/16/2023 SPEC #: [id number] RECD: 10/17/23 13:17 STATUS: CHENG REJaja #: [id number] CRISTIAN: 10/16/23 00:[address]: Vera Love DEPT: SURGICAL PATHOLOGY RECD BY: Martín Mayo ENTERED: 10/17/23 13:17 SP TYPE: PROD CONC OTHR DR: No Primary Care Phys Tissues: Product of conception, NOS Procedures: Surgery Specimen Level IV HEADER OPERATION: D&C, suction PRE-OP DIAGNOSIS: Missed TISSUE SUBMITTED: Products of conception MICROSCOPIC DIAGNOSIS Products of conception, dilation and curettage: Immature placental tissue and tissue (products of conception). SJ: 10/18/2023 MICROSCOPIC DESCRIPTION Slides are reviewed. GROSS DESCRIPTION Received in fixative is two containers labeled with the patient's name and designated Products of conception. The specimen consists of multiple fragments of hemorrhagic soft tissue mixed with placental tissue and tissue measuring in aggregate 13.0 x 11.0 x 4.0cm. Order Schedule Clerk tissue are submitted in three cassettes. (cassette 3 contains the tissue). 10/17/2023 TC:5 CPT:48383
[2023-10-16] MEDS: Lactated Ringers 1,000 ML 15 ML IV (11:11)
[2023-10-16 11:12] LABS: Hematocrit 36.7 % (37-47); Hemoglobin 11.8 g/dL (12.0-15.0); Mean Corp Hgb Conc 32.2 g/dL (32-36); Mean Corpuscular Hgb 28.3 pg (27.0-32.0); Mean Platelet Vol. 10.7 fl (6.2-12.0); Platelet Count 186 K/mm3 (150-450); RBC Distribution Width CV 16.8 % (11.6-14.6); Red Blood Count 4.17 M/mm3 (4.2-5.4); White Blood Count 6.7 K/mm3 (4.4-11.0)
[2023-10-16] MEDS: Doxycycline 100 MG CAPSULE PO (11:12)
--- NOTE | 2023-10-16 11:26 | PRE.ANES_ITS ---
ASA Classification* ASA Classification ASA Classification: 2 Assessment & Plan Anesthesia* Anesthesia Assessment Anesthesia Assessment: Discussed sedation and/or anesthesia options, risks, benefits, and alternatives with patient/parents/legal guardian/POA. Questions invited. The patient/parents/legal guardian/POA seems to understand and agrees to proceed with anesthesia plan. Reviewed the physical assessment, medical history, allergy history and patient home medications list prior to surgery/procedure/anesthetic and documented any changes. Performed airway and anesthesia risk assessments. Anesthesia Type Anesthesia Type: MAC (see written pre anesthesia record for full assessment) Anesthesia Focused Assessment* Temperature: 98.6 F Pulse Rate: 103 Blood Pressure: 130/78 Respiratory Rate: 18 Pulse Ox: 100 Airway Assessment Mouth opens: >3 cm Mallampati Score: II Focused Labs Anesthesia Preop lab: CBC WBC 6.7 K/mm3 (4.4-11.0) 10/16/23 11:03 RBC 4.17 M/mm3 (4.2-5.4) L 10/16/23 11:03 Hgb 11.8 g/dL (12.0-15.0) L 10/16/23 11:03 Hct 36.7 % (37-47) L 10/16/23 11:03 Plt Count 186 K/mm3 (150-450) 10/16/23 11:03 CHEMISTRY Potassium 3.5 mmol/L (3.5-5.1) 07/19/19 06:50 Sodium 138 mmol/L (136-145) 07/19/19 06:50 BUN 5 mg/dL (7-18) L 07/19/19 06:50 Creatinine 0.62 mg/dL (0.55-1.02) 07/19/19 06:50 Glucose 113 mg/dL (74-106) H 07/19/19 06:50 TSH 2.23 uIU/mL (0.358-3.74) 11/18/20 14:34 COAG Pre-Assessment Diagnosis/Proposed Procedure Planned Operative Procedure(s): SUCTION D&C Anesthesia History 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 When Was Last Pacemaker Check QUESTION #4 FULL TEXT: You/Your Family Experience fever (hyperthermia) with Anesthesia Last Oral Intake Last Oral intake: Last Oral Intake NPO since 00:00 10/16/23 11:01 Meds taken in AM with sips of No 10/16/23 11:01 water? Meds patient instructed to take am of surgery PONV PONV - nuclear test technician: PONV - nuclear test technician Female Yes 10/13/23 10:17 HX of Motion Sickness No 10/13/23 10:17 HX of N/V After Surgery No 10/13/23 10:17 Non-Smoker Yes 10/13/23 10:17 Duration of Surgery greater No 10/13/23 10:17 than 60 minutes Number of Risk Factors 2 10/13/23 10:17 PONV Score Moderate Risk 10/13/23 10:17 Height & Weight Height & Weight: Anesthesia: Height & Weight Height 5 ft 6 in 10/16/23 11:01 Weight: 66.497 kg 10/16/23 11:01 Body Mass Index (BMI) 23.6 10/16/23 11:01 Respiratory Assessment Respiratory Assessment - nuclear test technician: Respiratory Tract Infection Hx - nuclear test technician Hx Respiratory Tract Infection No 10/13/23 10:17 STOP Sleep Apnea STOP Sleep Apnea - nuclear test technician: STOP Sleep Apnea - nuclear test technician Hx Hypertension No 10/13/23 10:17 Hx Sleep Apnea No 10/13/23 10:17 CPAP BIPAP Do you snore loudly (louder No 10/13/23 10:17 than talking or can be heard Do you often feel tired/ No 10/13/23 10:17 fatigued/ sleepy during daytime? Has anyone observed you stop No 10/13/23 10:17 breathing during sleep? STOP Results Negative 10/13/23 10:17 QUESTION #5 FULL TEXT : Do you snore loudly (louder than talking or can be heard through closed doors)? 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 Specify any problems Hx of Preganancy in last 3 Yes 10/13/23 10:17 Months Nurse Filling Out Transfusion DSCHRIBER 10/13/23 10:17 & Questions: Date: 10/13/23 10/13/23 10:17 Time: 10:19 10/13/23 10:17 Patient unable to answer at this time (ie. confused, unrespo /Reproduction History /Reproductive History - nuclear test technician: /Reproductive Hx- nuclear test technician Hx Now Yes 10/13/23 10:17 Gestational Age (in weeks): EDC: Hx Hx Para Hx Section SAB No 10/13/23 10:17 Active Medications Active Medications: Current Medications Generic Name Dose Route Start Last Admin Trade Name Freq PRN Reason Stop Dose Admin Doxycycline Monohydrate 100 mg 10/16/23 12:00 10/16/23 11:12 Doxycycline 100 Mg Capsule PO 10/16/23 12:01 100 mg PREOP ONE Administration Lactated Ringer's 1,000 mls @ 15 mls/hr 10/16/23 10:45 10/16/23 11:11 IV 15 mls/hr .Q48H ART Administration PFSH Medical History Wears glasses Wears contact lenses Alcohol use Low iron Migraine headache Blackout Non-smoker History of echocardiogram (spontaneous vaginal delivery) Home Medications ?Medication ?Instructions ?Recorded ?Last Taken ?Type multivitamin no.47-iron fum 27 1 cap PO DAILY 08/22/23 Unknown History mg-folate no.1 1 mg-dha 300 mg capsule (PNV-DHA) valacyclovir 500 mg tablet 500 mg PO BID PRN cold sores 08/22/23 Unknown History (Valtrex) Allergy/AdvReac Type Severity Reaction Status Date / Time No Known Allergies Allergy Verified 10/16/23 11:00 Family History Father Cancer, Onset Age: 57 Prostate ca Hypertension Grandfather Cancer, Onset Age: 70 Maternal Prostate Cancer Grandmother COPD (chronic obstructive pulmonary disease) Maternal Mother Hypertension Sister Fatty liver due to alcoholism Surgical History History of cystoscopy S/P foot surgery, right History of laparoscopic appendectomy (~07/19/19) Social History adopted: No household members: significant other and children number of children: 4 current occupational status: unemployed current occupation: [employer] pets and animals: No history of recent travel: No sexually active: Yes Smoking Status: Never smoker alcohol intake: never substance use type: does not use well-balanced diet: daily or most days caffeine: Yes Type: carbonated beverages Number of servings: 1 eating out: 1-3 times/week during the past year weight has: remained stable what type of physical activity do you participate in: walking frequency: 5-6 times per week duration: 30-45 minutes/day andie/islam: None seatbelt use: always do you feel safe at home: Yes additional 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: BF 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
--- NOTE | 2023-10-16 11:41 | HP.PCM_ITS ---
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 Required: No Is patient in pain?: No Allergies No Known Allergies Allergy (Verified 10/12/23 10:06) Medications ?Medication ?Instructions ?Recorded ?Confirmed ?Type multivitamin no.47-iron fum 27 cap PO 08/22/23 10/12/23 History mg-folate no.1 1 mg-dha 300 mg capsule (PNV-DHA) valacyclovir 500 mg tablet 500 mg PO BID PRN cold sores 08/22/23 10/12/23 History (Valtrex) Last Menstrual Period: 07/12/23 Zika: Zika virus screening: Negative : No Have you fallen in the past year?: No PFSH PFSH Medical History (spontaneous vaginal delivery) Kidney stones Surgical History S/P foot surgery, right History of laparoscopic appendectomy (~07/19/19) Family History Father Cancer, Onset Age: 57 Prostate ca HypertensionGrandfather Cancer, Onset Age: 70 Maternal Prostate CancerGrandmother COPD (chronic obstructive pulmonary disease) MaternalMother HypertensionSister Fatty liver due to alcoholism Social History adopted: No household members: significant other and children number of children: 4 current occupational status: unemployed current occupation: [employer] pets and animals: No history of recent travel: No sexually active: Yes Smoking Status: Never smoker alcohol intake: never substance use type: does not use well-balanced diet: daily or most days caffeine: Yes Type: carbonated beverages Number of servings: 1 eating out: 1-3 times/week during the past year weight has: remained stable what type of physical activity do you participate in: walking frequency: 5-6 times per week duration: 30-45 minutes/day andie/uatsdin: None seatbelt use: always do you feel safe at home: Yes 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 Date Name GA/Weeks Outcome Route Bth Weight Gen Labor Lgth Anesthesia Del Locatn Provider FOB 03/23/14 Melvina 40 live - full term 8#1oz Fem jennifer epidural [facility] 03/03/18 Kathleen 39 live - full term 8#13oz Ma le epidural [facility] Dr.Weeman Hilario 10/06/19 Skip 38 live - full term 6#3oz Fem jennifer epidural [facility] Pj Hilario 05/23/21 Neville 38 live - full term 8#5oz Mal e epidural [facility] Suzanne Hilario HPI 12wk OB Details: ELIZABETH HERNANDEZ is a 28 year old who presents for missed AB 12 weeks, no vb abnormal discharge, was seen in office last week for routine 13 week visit and found to be measuring a week behind 12 weeks with no FHT present. no fevers. no abdominal pain. OB Visit CODY Calculator Estimated Delivery Date Method Current WG Current Estimate 04/17/24 LMP (Certain) 13w 1d Other Estimates 04/12/24 Ultrasound #1 13w 6d Expected Delivery Route/Plan Labor Preferences- CB/BF classes: [] labor support person: [] labor intervention preferences: [] pain management options preferred: [] cut cord/dad catch: [] : [] PP control planned: [] discussed possible routes of delivery and associated risks: [] special requests: [] Specific Issue/Plans Covid status: [] Flu vaccine: [] Tdap vaccine: [] Rhogam: [] LARC form signed: [] Problem list reviewed and updated with the most current plan of care details and appropriate orders placed. Relevant counseling for the gestational age provided. Continue routine care and follow up unless otherwise noted in visit notes/problem list details Initial Weight: Not Recorded Date -?-?-?-?-?-?-?-?-?-?-?-?- EGA Weight BP Urine Prot -?-?-?-?-?-?-?-?-?-?-?-?- Glucose FHR FuHt Pres Dilation -?-?-?-?-?-?-?-?-?-?-?-?- Effaced St Visit Note 09/14/23-?-?-?-?-?-?-?-?-?-?-?-?- 9w 1d 146 lb 100/69 -?-?-?-?-?-?-?-?-?-?-?-?- -?-?-?-?-?-?-?-?-?-?-?-?- KW- new OB at [facility]. Had US on for dating. Visualized on handheld US, unable to obtain HR on handheld due to size. Had her other 4 children with her today and requested not to do a pelvic exam today because she did not have a support person to sit with them. Agree for pap and gcc next visit. Declines NIPT 10/12/23-?-?-?-?-?-?-?-?-?-?-?-?- 13w 1d 146 lb 109/73 -?-?-?-?-?-?-?-?-?-?-?-?- -?-?-?-?-?-?-?-?-?-?-?-?- KW- saw for SM. no vb/cramping. PAP and GCC today. NOB labs today after visit. KW- saw for SM. no vb/cramping. PAP and GCC today. No heart beat/movement on US today. SM consulted for SAB. Plan D&C on monday. plan APL panel and genetic testing. ACOG First Trimester First Trimester: Desire for , Alcohol, Tobacco Cessation, I llicit/Recreational Drug/Substance Use, Intimate Partner Violence, Barriers to care, Anticipated Course of Care, Use of Any medications, Sexual activity, Exercise, Dental Care, Sauna/Hot tub use, Seat Belt use, Childbirth classes/Hospital facilities, , Travel, Indications for Ultrasound and Screening for Aneuploidy; Discussed Unstable Housing, Discussed Communication Barriers, Discussed Environmental/Work Hazards and Discussed Toxoplasmosis Precations Second Trimester Second Trimester: Signs and Symptoms of Labor, Selecting a care provider, Reproductive Life Planning & Contreception, Care Planning, Depression/Anxiety and Intimate Partner Violence; Discussed Tobacco Cessation Third Trimester Third Trimester: Pain Management Plans, Labor support person(s), Immediate Larc, Signs and Symptoms of Preeclampsia, Feeding Yes , Education and Family Medical Leave or Disability Forms ROS Const Reports system reviewed and no additional complaints, except as documented Card Reports system reviewed and no additional complaints, except as documented Resp Reports system reviewed and no additional complaints, except as documented GI Reports system reviewed and no additional complaints, except as documented, Reports nausea resolved Reports system reviewed and no additional complaints, except as documented Musc Reports system reviewed and no additional complaints, except as documented all other systems reviewed and negative Exam Const General: cooperative, healthy appearing, comfortable HENMT Head: normal to inspection Nose: external nose normal Face and sinus: normal facial exam Neck Neck: normal visual inspection, full ROM, no lymphadenopathy Thyroid: thyroid normal Chest Chest palpation & inspection: normal inspection of the chest Resp Effort & Inspection: normal respiratory effort GI Inspection: normal to inspection Palpation: soft, NTTP FH 12 weeks Extrem General: no pedal edema Coding Level of Care Code Off vis,est,level 4 Diagnoses Family history of autism Z81.8 Varicose vein of leg I83.90 Supervision of high-risk O09.90 13 weeks gestation of Z3A.13 Weeks of gestation: 13 weeks Early stage of Z34.90 Assessment and Plan Assessment and Plan Missed AB- 12 weeks (1) Family history of autism: Status: Acute Comment: Cousin on Mothers side of family (2) Varicose vein of leg: Status: Acute Comment: left leg above the knee (3) Supervision of high-risk : Status: Acute Comment: , CODY 04/17/24, PC Christian Hein Kynzie, Dawson BF Daniel (4) : Status: Acute Qualifiers: Weeks of gestation: 13 weeks Qualified Code(s): Z3A.13 - 13 weeks gestation of Comment: NEEDS pap and GCC at 2nd visit. See note. declines NIPT (5) Early stage of : Status: Acute plan to proceed with suction d and c After discussing the patient's diagnosis and treatment plan options, patient wishes to proceed with surgical management. I have discussed with the patient the risks, benefits, and alternatives of the procedure which include but are not limited to risks of anesthesia, bleeding, infection, possible damage to bowel, bladder, or surrounding vasculature which could lead to additional surgery to evaluate any complications. Patient agrees to procedure and wishes to proceed. ACOG/uptodate references given for additional information regarding procedure. UPDATE- I have seen the patient and performed any clinically relevant updates to the history and physical exam. Vera Love MD Assessment & Plan Assessment/Plan (1) Missed :
--- NOTE | 2023-10-16 12:56 | PCM.OPRPT ---
Problems Associated Problem List Diagnoses (1) Missed : Report of Operation Date of Procedure: 10/16/23 Pre-Operative Diagnosis: see problem list Post-Operative Diagnosis: same Surgery/Procedure Performed:: Suction dilation and curettage Description of Surgical Findings:: no FHT present, Nonviable 12 weeks Surgeon: Vera Love elastic attacher overlock: None (Dunia Selby at end of procedure to confirm ultrasound full removal of POC) Type of Anesthesia: Local MAC Special Medications: pitocin, methergine, hemabate, TXA, cytotec. Specimen's removed: POC Drains: none Estimated Blood Loss (mL): 400 Fluids Replaced: crystalloid Description of Procedure: Patient was taken to the operating room and placed under MAC local anesthesia. She was prepped and draped in the normal sterile fashion the dorsal lithotomy position. Bladder was drained of clear urine and anterior lip of the cervix was grasped and the uterus sounded to 12cm. Cervix was progressively dilated to allow passage of a 12mm suction curette. Progressive passes were made removing the retained products of conception, ultrasound performed and retained POC still seen, under ultrasound guidance continued d and c performed, and then the cervix was dilated to allow passage of a 14mm currett which successfully removed the final products. ultrasoun dperformed and complete removal of all products confirmed.. Sharp curettage performed throughout the procedure to aid, and then also confirmed complete removal of the retained products. All instruments were removed from the vagina and excellent hemostasis was noted and the patient was taken to recovery in stable condition. proactive medicaiton was given to reduce EBL and aid in uterine contraction. Grafts/Implants Used: none Procedure Start Time: 13:07 Procedure Stop Time: 13:33 Complications none Admit VTE Documentation VTE Present on Admission: No VTE Mechan Device Prophylaxis: SCD's Procedures Urinary/Genital [id number]: [id number] Surg Trtmt missed Ab, 1TM
[2023-10-16] MEDS: TRANEXAMIC ACID 1,000 MG in 0.9% Normal Saline (100mL Bag) 100 ML 440 MG IV (13:10)
[2023-10-16] MEDS: Lidocaine 1% (20 ml mdv) 20 ML Vial (13:16)
[2023-10-16] MEDS: miSOPROStol 200 MCG Tablet (13:16)
[2023-10-16] MEDS: Carboprost Tromethamine 250 MCG/ML Ampul (13:30)
[2023-10-16] MEDS: Methylergonovine 0.2 MG/ML Ampul IM (13:30)
--- NOTE | 2023-10-16 13:36 | PCM.DC ---
Discharge Instructions Diet Discharge Diet: No restrictions Activity Discharge Activity: Return to Normal Activity, May Shower and May Take a Tub Bath (after 1 week) May resume sexual activity in: 1-2 weeks Weight Bearing Status: Weight bearing as tolerated Lifting Restrictions: none Dressing / Incision Call your doctor if you observe: Fever of 101 or Higher, Using more than 1 pad per hour, Shortness of breath and Uncontrolled pain Follow Up Care Please Follow Up With: Vera Love MD When: Call [phone] to schedule appointment. Test Results: Test results from this visit will be discussed in further detail at your follow-up appointment, if applicable. Discharge Plan Admission Attending Provider: Vera Love Primary Care Provider: Care Physician,Cecilia Primary Instructions Print Language: Burkinan Discharge Orders/Prescriptions Prescriptions: No Action PNV-DHA 27 mg iron-1 mg -300 mg capsule 1 cap PO DAILY valacyclovir [Valtrex] 500 mg tablet 500 mg PO BID PRN (Reason: cold sores) Other Ambulatory Orders: Pathology Specimen OB (Routine) Timeframe: [id number] Facility: [facility] - Location: Laboratory Ordered By: Dr. Vera Love Referrals / Follow Up: Care Physician,No Primary [Primary Care Provider] - Disposition Disposition (needs filled in before D/C Order can be placed): Home, Self Care
--- NOTE | 2023-10-16 13:44 | PCM.POST.ANE ---
Anesthesia: Postop Eval I Current Vital Signs Temperature: 97 F Pulse Rate: 71 Blood Pressure: 99/66 Respiratory Rate: 18 Pulse Ox: 97 Assessment Airway patent: Yes Spontaneous unlabored respirations: Yes nausea: No Vomiting: No Anesthesia Complication: No Fluid Hydration Crystalloid volume administer (ml): 800 Total IV fluid infused: 800 Progress Note Anesthesia document: Postop Eval 1 completed: Yes
--- NOTE | 2023-10-16 14:01 | POSTOPAN2_ITS ---
Anesthesia Postop Eval I Sum Postop Eval Completion status Anesthesia document: Postop Eval 1 completed: Yes Anesthesia Postop Eval I Summary Anesthesia Postop Eval I Summary: Anesthesia Postop Eval I: Assessment Summary Airway patent Yes 10/16/23 13:44 [email or web address] Spontaneous unlabored Yes 10/16/23 13:44 [email or web address] [email or web address] respirations Mental status nausea No 10/16/23 13:44 [email or web address] [email or web address] Vomiting No 10/16/23 13:44 [email or web address] [email or web address] Anesthesia Postop Eval I: Fluid Summary Crystalloid volume administer 800 10/16/23 13:44 [email or web address] [email or web address] (ml) Colloids volume administered ( ml) Blood Product volume administered (ml) Total IV fluid infused 800 10/16/23 13:44 [email or web address] [email or web address] Anesthesia Postop Eval I: Summary Notes Anesthesia Complication No 10/16/23 13:44 [email or web address] [email or web address] Anesthesia Complication Comment: Post-operative progress note Anesthesia: Postop Eval II Evaluation Mental status: Awake Pain Level: 0 nausea: No Vomiting: No
--- NOTE | 2023-10-16 14:01 | PCM.POSTANE2 ---
Anesthesia Postop Eval I Sum Postop Eval Completion status Anesthesia document: Postop Eval 1 completed: Yes Anesthesia Postop Eval I Summary Anesthesia Postop Eval I Summary: Anesthesia Postop Eval I: Assessment Summary Airway patent Yes 10/16/23 13:44 PNEUMATIC DRUM [email or web address] Spontaneous unlabored Yes 10/16/23 13:44 PNEUMATIC DRUM SANDER.[email or web address] respirations Mental status nausea No 10/16/23 13:44 PNEUMATIC DRUM [email or web address] Vomiting No 10/16/23 13:44 PNEUMATIC DRUM [email or web address] Anesthesia Postop Eval I: Fluid Summary Crystalloid volume administer 800 10/16/23 13:44 PNEUMATIC DRUM [email or web address].CSIR (ml) Colloids volume administered ( ml) Blood Product volume administered (ml) Total IV fluid infused 800 10/16/23 13:44 PNEUMATIC DRUM [email or web address].CSIR Anesthesia Postop Eval I: Summary Notes Anesthesia Complication No 10/16/23 13:44 PNEUMATIC DRUM [email or web address].CSIR Anesthesia Complication Comment: Post-operative progress note Anesthesia: Postop Eval II Evaluation Mental status: Awake Pain Level: 0 nausea: No Vomiting: No
== END 2023-10-16 15:27 | disposition home or self-care (01) ==
LOC: SDC 10:41 → AC 10:42
PROVIDERS: Referring Provider Obstetrics & Gynecology; Visit Provider Obstetrics & Gynecology
PROC: (CPT 59820; principal; 2023-10-16 12:15)
DX: O02.1 Missed abortion (principal); O22.01 Varicose veins of lower extremity in pregnancy, first trimester; I83.90 Asymptomatic varicose veins of unspecified lower extremity; Z3A.13 13 weeks gestation of pregnancy; Z81.8 Family history of other mental and behavioral disorders
CPT/HCPCS: 59820; 83036; 84443; 85027; 86850; 86900; 86901; 88305; J7120; J2405

== ENCOUNTER → 2023-10-19 | Outpatient (CLI) | payer MEDICAID, SELFPAY ==
[2023-10-19 14:39] LABS: T4 Free Direct 0.92 ng/dL (0.76-1.46)
[2023-10-23 15:08] LABS: Anti-Cardiolipin Ab, IgG, Qn < 9 GPL U/mL (0-14); Anti-Cardiolipin Ab, IgM, Qn 11 MPL U/mL (0-12); Beta-2-Glycoprotein I IgA <9 (0-25); Beta-2-Glycoprotein I IgG <9 (0-20); Beta-2-Glycoprotein I IgM <9 (0-32); Dilute Prothrombin Time (dPT) 34.3 sec (0.0-47.6); Dilute Russell Viper Venom 37.9 sec (0.0-47.0); Interpretation Comment: (.); PTT-LA 38.6 sec (0.0-43.5); Thrombin Time 16.7 sec (0.0-23.0); dPT Confirm Ratio 1.11 Ratio (0.00-1.34)
== END | disposition home or self-care (01) ==
LOC: PAVLAB 13:48
PROVIDERS: Referring Provider Obstetrics & Gynecology; Visit Provider Obstetrics & Gynecology
DX: N96 Recurrent pregnancy loss (principal); R79.89 Other specified abnormal findings of blood chemistry
CPT/HCPCS: 36415; 84439; 86146; 86147

== ENCOUNTER → 2023-11-01 | Outpatient (CLI) | payer MEDICAID, SELFPAY ==
[2023-11-01 16:41] LABS: T4 Free Direct 0.93 ng/dL (0.76-1.46)
== END | disposition home or self-care (01) ==
LOC: PAVLAB 15:12
PROVIDERS: Referring Provider Nurse Practitioner Family; Visit Provider Nurse Practitioner Family
DX: R79.89 Other specified abnormal findings of blood chemistry (principal)
CPT/HCPCS: 36415; 84439; 84443

== ENCOUNTER → 2024-02-09 | Outpatient (CLI) | payer MEDICAID, SELFPAY | END | disposition home or self-care (01) | PROVIDERS: Referring Provider Obstetrics & Gynecology; Visit Provider Obstetrics & Gynecology | DX: R79.89 Other specified abnormal findings of blood chemistry (principal) | CPT/HCPCS: 36415; 84439; 84443 ==

== ENCOUNTER 2024-03-29 03:04 | Emergency (ER) | payer MEDICAID, SELFPAY ==
[2024-03-29 03:04] VITALS: PULSE 87; RESP 19; TEMP 36.6; O2SAT 100; BMI 26.3
[2024-03-29 03:08] VITALS: BP 126/88
--- NOTE | 2024-03-29 03:20 | EDS_ITS ---
HPI History of Present Illness Chief Complaint: Abd Pain Informant: patient Narrative Narrative: Patient awakened from pain at 1 AM. States pain left abdomen goes to her left flank. Have urine frequency since then. No dysuria. No nausea or vomiting. No fevers. History of kidney stones 5 years ago when she was . Unclear if felt similar. States at that time had an appendectomy a few days prior. No allergies. Last menstrual period 5 days ago. No other abdominal surgeries. No pain down the legs. PFSH PFSH Medical History Kidney stone Wears glasses Wears contact lenses Alcohol use Low iron Migraine headache Blackout Non-smoker History of echocardiogram (spontaneous vaginal delivery) Home Medications ?Medication ?Instructions ?Recorded ?Last Taken ?Type NK 03/29/24 Unknown History ibuprofen 600 mg tablet 600 mg PO Q6H PRN PRN pain # 20 03/29/24 Unknown Rx TABLETS ondansetron 4 mg disintegrating 4 mg PO Q8H PRN PRN Na usea #10 tabs 03/29/24 Unknown Rx tablet oxycodone-acetaminophen 5 mg-325 1 tab PO Q6H PRN PRN Pain 3 days 03/29/24 Unknown Rx mg tablet #12 TABLETS Allergy/AdvReac Type Severity Reaction Status Date / Time No Known Allergies Allergy Verified 03/29/24 03:05 Family History Father Cancer, Onset Age: 57 Prostate ca Hypertension Grandfather Cancer, Onset Age: 70 Maternal Prostate Cancer Grandmother COPD (chronic obstructive pulmonary disease) Maternal Mother Hypertension Sister Fatty liver due to alcoholism Surgical History History of cystoscopy S/P foot surgery, right History of laparoscopic appendectomy (~07/19/19) Social History adopted: No household members: significant other and children number of children: 4 current occupational status: unemployed current occupation: [employer] pets and animals: No history of recent travel: No sexually active: Yes Smoking Status: Never smoker alcohol intake: never substance use type: does not use well-balanced diet: daily or most days caffeine: Yes Type: carbonated beverages Number of servings: 1 eating out: 1-3 times/week during the past year weight has: remained stable what type of physical activity do you participate in: walking frequency: 5-6 times per week duration: 30-45 minutes/day andie/restorationism: None seatbelt use: always do you feel safe at home: Yes additional 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: 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 ROS ROS ED Constitutional Constitutional ED: Denies chills, fever(s) or sweats ENT ENT ED: Denies sore throat Cardiovascular Cardiovascular: Denies chest pain, leg edema, palpitations or racing heartbeat Respiratory/Chest Respiratory/Chest: Denies cough, dyspnea or dyspnea on exertion Gastrointestinal Gastrointestinal: Reports abdominal pain; Denies diarrhea, nausea or vomiting Genitourinary Genitourinary ED: Reports urinary frequency; Denies dysuria or hematuria Musculoskeletal Musculoskeletal: Reports back pain; Denies extremity pain or neck pain Integumentary Denies rash or wounds Neurologic Neurologic: Denies headache(s), paresthesias or weakness EXAM Physical Exam Const Vital Signs: 03/29/24 03:04 03/29/24 03:08 03/29/24 05:01 Temperature 97.8 F 98.0 F Temperature Source Oral Pulse Rate 87 94 Respiratory Rate 19 H 16 Blood Pressure 126/88 H 116/85 H Blood Pressure Mean 100 95 Pulse Ox 100 100 Oxygen Delivery Method Room Air Positive well nourished and well developed General Appearance ED: well developed and NAD HEENT Reports moist mucous membranes normocephalic and atraumatic Eyes General Eye ED: Yes normal appearance of both eyes Neck full ROM Chest Wall Chest: Negative for tenderness Resp normal respiratory effort and normal air movement Effort and Inspection: symmetric chest movement; Negative for respiratory distress Cardio regular rate, regular rhythm and no murmurs Peripheral Pulses: pulses 2+ throughout GI normal to inspection, nondistended, normoactive bowel sounds GI Narrative: Negative Hicks's or McBurney's tenderness. Mild tenderness left mid abdomen. No guarding or rebound. Palpation: Negative for guarding or rebound tenderness present Back/Spine Back/Spine Narrative: Tender left flank no ecchymosis no rash. No midline tenderness. Extremity normal to inspection General Extremety ED: Negative for edema or tenderness General Extremity: Negative for edema Neuro oriented x3 and no sensory deficits noted Sensorium / Orientation: awake and alert Skin no rashes or lesions noted and no wounds MDM MDM MDM Narrative Medical decision making narrative: Interventions / MDM: Differential diagnosis: Kidney stone, hematuria Diagnosis considered but do not suspect: UTI however urine negative. Pancreatitis however lipase negative. My EKG interpretation: N/A Imaging independently reviewed and interpreted by myself: CT abdomen/pelvis: 5 mm left UVJ stone with hydro-. External documents reviewed: N/A Test considered but not ordered:N/A ED course: Patient declines any medicines for pain As symptoms subsided. Vital stable. Obtain abdominal labs and urine. Noncontrast CT scan for further evaluate. Workup positive for 5 mm UVJ stone urine hematuria no infection. Labs are stable. Patient did not require any medications for symptom control. Ever I did send prescriptions for antiemetics and pain meds to the pharmacy in case she needs medications. Urine strainer for home. Urology follow-up given. All questions were answered. Re-evaluation: stable Disposition discussed with patient/family/significant other: Patient Case discussed with consulting clinician: N/A This note was generated with [employer] dictation software. It may contain incorrect words, spelling, and punctuation that were not noted in checking the note before signing. Lab Data Attestation: I reviewed the patient's lab results. Labs: Laboratory Results - last 24 hr 03/29/24 03:30 WBC 6.4 RBC 4.15 L Hgb 11.9 L Hct 35.7 L MCV 86.0 MCH 28.7 MCHC 33.3 RDW Std Deviation 40.8 RDW Coeff of Mariajose 13.1 Plt Count 208 MPV 10.8 Immature Gran % (Auto) 0.500 Neut % (Auto) 61.6 Lymph % (Auto) 28.5 Garden % (Auto) 7.7 Eos % (Auto) 1.1 Baso % (Auto) 0.6 Absolute Neuts (auto) 3.9 Absolute Lymphs (auto) 1.82 Nucleated RBC % 0 Sodium 137 Potassium 4.0 Chloride 105 Carbon Dioxide 26.0 Anion Gap 6 BUN 20 H Creatinine 0.78 Estim Creat Clear Calc 109.44 Est GFR (MDRD) Af Amer 111 Est GFR (MDRD) Non-Af 92 BUN/Creatinine Ratio 25.5 H Glucose 104 Calcium 8.7 Total Bilirubin 0.40 AST 14 L ALT 17 Alkaline Phosphatase 41 L Total Protein 7.4 Albumin 4.2 Globulin 3.2 Albumin/Globulin Ratio 1.3 Lipase 42 Serum , Qual NEGATIVE Urine Color Straw Urine Clarity Clear Urine pH 6.0 Ur Specific [place] 1.015 Urine Protein Negative Urine Glucose (UA) Normal Urine Ketones Negative Urine Occult Blood 25 H Urine Nitrite Negative Urine Bilirubin Negative Urine Urobilinogen Normal Ur Leukocyte Esterase Negative Urine RBC 0 SEEN Urine WBC 0-5 SEEN Ur Squamous Epith Cells 0-5 SEEN Urine Bacteria RARE Urine Mucus 1+ Radiography Diagnostic Testing: Clinical Impression(s) from Imaging Studies Abdomen/Pelvis CT 03/29/24 04:04 IMPRESSION: Left obstructive uropathy by 0.5 cm urolith at the ureterovesical junction. Associated marked proximal hydroureteronephrosis. Bilateral nonobstructing nephrolithiasis. Calcified granulomas in the left lower lobe. One or more dose reduction techniques were used (e.g., Automated exposure control, adjustment of the mA and/or kV according to patient size, use of iterative reconstruction technique). Reading Location: [facility] Discharge Plan Triage Chief Complaint: Abd Pain ED Provider: Chas Ernst Dx/Rx/DC Orders Clinical Impression: Kidney stone on left side, Hematuria Instructions: ED Kidney Stone with Pain Prescriptions: New oxycodone-acetaminophen 5-325 mg tablet 1 tab PO Q6H PRN PRN (Reason: Pain) 3 Days Qty: 12 0RF ibuprofen 600 mg tablet 600 mg PO Q6H PRN PRN (Reason: pain) Qty: 20 0RF ondansetron 4 mg tablet,disintegrating 4 mg PO Q8H PRN PRN (Reason: Nausea) Qty: 10 0RF No Action NK Primary Care Provider: Care Physician,No Primary Referrals: Himanshu Dixon MD [Med Staff - Active Staff] - 5-7 Days Care Physician,No Primary [Primary Care Provider] - Activity Restrictions/Additional Instructions: 5 millimeter stone at the UVJ junction on the left side. Urine without infection. Mild blood noted. Use medications as needed. Follow-up with urology. If symptoms return not controlled medications, return to ED for reevaluation. Print Language: Yemeni Disposition Disposition: Home, Self Care Discharge Date/Time: 03/29/24 05:03
[2024-03-29 03:36] LABS: Red Blood Cells-Urine 0 SEEN /hpf (0-5)
[2024-03-29 03:37] LABS: Absolute Lymphocyte Count 1.82 X10^3/uL (0.83-4.51); Absolute Neutrophil Count 3.9 X10^3/uL (2.0-7.7); Basophil# 0.04 X10^3/uL; Basophil% 0.6 % (0-1); Eosinophil# 0.07 X10^3/uL; Eosinophils% 1.1 % (0-5); Hematocrit 35.7 % (37-47); Hemoglobin 11.9 g/dL (12.0-15.0); Lymphocyte # 1.82 X10^3/ul (0.83-4.51); Lymphocyte % 28.5 % (19-41); Mean Corp Hgb Conc 33.3 g/dL (32-36); Mean Corpuscular Hgb 28.7 pg (27.0-32.0); Mean Platelet Vol. 10.8 fl (6.2-12.0); Monocyte# 0.49 X10^3/uL; Monocyte% 7.7 % (0-10); NRBC Flagged by Analyzer 0 % (0-5); Neutrophil # 3.94 X10^3/uL (2.7-7.7); Neutrophil % 61.6 % (47-70); Platelet Count 208 K/mm3 (150-450); RBC Distribution Width CV 13.1 % (11.6-14.6); RBC Distribution Width SD 40.8 fl (35.1-43.9); Red Blood Count 4.15 M/mm3 (4.2-5.4); White Blood Count 6.4 K/mm3 (4.4-11.0)
[2024-03-29 03:54] LABS: ALB/GLOB Ratio 1.3 RATIO (0.9-2.4); AST(SGOT) 14 U/L (15-37); Alanine Aminotransfer ALT/SGPT 17 U/L (13-56); Albumin, Serum 4.2 g/dL (3.2-5.0); Alkaline Phosphatase 41 U/L (45-117); Anion Gap 6 (5-15); BUN 20 mg/dL (7-18); BUN/Creat Ratio 25.5 RATIO (10-20); Calcium,Total 8.7 mg/dL (8.5-10.1); Chloride 105 mmol/L (98-107); Creatinine, Serum 0.78 mg/dL (0.55-1.02); EST Glomerular Filtration Rate 92 mL/min (>60); Est Glom Filt Rate - Afr Amer 111 mL/min (>60); Estimated Creatinine Clearance 109.44 ml/min; Globulin 3.2 g/dL (2.2-4.2); Glucose 104 mg/dL (74-106); Internal QC Validated? YES +Cl - CLEAR BKGD; Lipase 42 U/L (13-75); Pregnancy, Serum, hCG Quali. NEGATIVE Negative; Protein, Total 7.4 g/dL (6.4-8.2); Sodium Level 137 mmol/L (136-145)
--- NOTE | 2024-03-29 04:04 | CT_ITS ---
PROCEDURE: ABDOMEN/PELVIS WITHOUT CONT REASON FOR EXAM: Left flank pain. History of kidney stone. History of appendicitis. TECHNIQUE: Abdomen and pelvis CT with intravenous contrast. IV CONTRAST: Not given COMPARISON: Ultrasound dated 09/12/2023. FINDINGS: Lung bases: 2 calcified granulomas in the left lower lobe measuring 0.3 and 0.7 cm on axial image 29. Liver: Unremarkable. Gallbladder: Unremarkable. Spleen: Unremarkable. Pancreas: Unremarkable. Adrenals: Unremarkable. Kidneys: Multiple nonobstructing calcifications in the bilateral kidneys, largest on the left measuring 0.3 cm, axial image 59. Marked left hydro uretero nephrosis. A 5 mm urolith at the left ureterovesical junction, axial image 144. Bladder: Decompressed. Reproductive Organs: Unremarkable. Bowel: Unremarkable. Appendix: Postoperative findings related to appendectomy. Lymph nodes: No suspicious lymph node enlargement. Vasculature: Major vascular structures are unremarkable. Peritoneum / Retroperitoneum: No ascites. No free air. Bones: Unremarkable. CT/Abdomen/Pelvis without Cont IMPRESSION: Left obstructive uropathy by 0.5 cm urolith at the ureterovesical junction. As sociated marked proximal hydroureteronephrosis. Bilateral nonobstructing nephrolithiasis. Calcified granulomas in the left lower lobe. One or more dose reduction techniques were used (e.g., Automated exposure contr ol, adjustment of the mA and/or kV according to patient size, use of iterative reconstruction technique). Reading Location: [facility]
[2024-03-29 04:11] LABS: Color, Urine Straw (Yellow); Glucose, Dipstick Normal (Normal); Ketone-Dipstick Negative (Negative); Leukocyte Esterase-Dipstick Negative /ul (Negative); Nitrite-Dipstick Negative (Negative); Occult Blood-Urine 25 /ul (Negative); Protein-Dipstick Negative (Negative); Specific Gravity, Urine 1.015 (1.002-1.030); Urine Bilirubin Dipstick Negative (Negative); Urine Clarity Clear (Clear); Urine Urobilinogen Normal (Normal)
[2024-03-29 04:23] LABS: Bacteria RARE /hpf (None Seen); Mucous, Urine 1+ /hpf (<or=2+); Squamous Epithelial Cells - UA 0-5 SEEN /hpf (5-10); White Blood Cells 0-5 SEEN /hpf (0-5)
[2024-03-29 05:01] VITALS: BP 116/85; PULSE 94; RESP 16; TEMP 36.7; O2SAT 100
== END 2024-03-29 05:03 | disposition home or self-care (01) ==
PROVIDERS: Emergency Provider Emergency Medicine; Visit Provider Emergency Medicine
DX: N13.2 Hydronephrosis with renal and ureteral calculous obstruction (principal); R31.9 Hematuria, unspecified; Z87.442 Personal history of urinary calculi; Z90.49 Acquired absence of other specified parts of digestive tract
CPT/HCPCS: 74176; 80053; 81001; 83690; 84703; 85025; 99282; A4216

== ENCOUNTER → 2024-04-15 | Outpatient (CLI) | payer MEDICAID, SELFPAY ==
[2024-04-15 12:40] LABS: Absolute Lymphocyte Count 1.35 X10^3/uL (0.83-4.51); Absolute Neutrophil Count 3.9 X10^3/uL (2.0-7.7); Basophil# 0.03 X10^3/uL; Basophil% 0.5 % (0-1); Eosinophil# 0.06 X10^3/uL; Hematocrit 38.7 % (37-47); Hemoglobin 12.1 g/dL (12.0-15.0); Lymphocyte # 1.35 X10^3/ul (0.83-4.51); Mean Corp Hgb Conc 31.3 g/dL (32-36); Mean Corpuscular Hgb 27.6 pg (27.0-32.0); Mean Corpuscular Volume 88.4 fL (81-99); Mean Platelet Vol. 11.5 fl (6.2-12.0); Monocyte# 0.56 X10^3/uL; Monocyte% 9.6 % (0-10); NRBC Flagged by Analyzer 0 % (0-5); Neutrophil # 3.85 X10^3/uL (2.7-7.7); Neutrophil % 65.7 % (47-70); Platelet Count 198 K/mm3 (150-450); RBC Distribution Width CV 12.9 % (11.6-14.6); RBC Distribution Width SD 41.9 fl (35.1-43.9); Red Blood Count 4.38 M/mm3 (4.2-5.4); White Blood Count 5.9 K/mm3 (4.4-11.0)
[2024-04-15 12:48] LABS: Ferritin 5 ng/mL (8-252); Iron 72 ug/dL (50-170); Iron Binding Capacity,Total 419 ug/dL (250-450); PERCENT IRON SATURATION 17.2 % (15.0-55.0); T4 Free Direct 0.92 ng/dL (0.76-1.46)
[2024-04-15 12:49] LABS: Vitamin D,25 Hydroxy 16.9 ng/mL
== END | disposition home or self-care (01) ==
LOC: BIMLAB 09:39
PROVIDERS: PCP Internal Medicine; Referring Provider Internal Medicine; Visit Provider Internal Medicine
DX: R53.83 Other fatigue (principal); E03.9 Hypothyroidism, unspecified
CPT/HCPCS: 36415; 82306; 82728; 83540; 83550; 84439; 84443; 85025

== ENCOUNTER → 2024-04-19 | Outpatient (CLI) | payer MEDICAID, SELFPAY ==
--- NOTE | 2024-04-19 17:05 | US_ITS ---
PROCEDURE: ULTRASOUND THYROID REASON FOR EXAM: Enlarged thyroid. TECHNIQUE: Real-time grayscale and color-flow imaging was performed along with routine image documentation. COMPARISON: None. FINDINGS: Right thyroid lobe measures 5.7 x 1.7 x 1.3 cm.. Left thyroid lobe measures 5.5 x 2.0 x 1.4 cm.. Isthmus thickness is0.19 cm.. Thyroid Size: Normal Background Echotexture: Homogeneous Thyroid Nodules: None US/Thyroid IMPRESSION: NORMAL THYROID ULTRASOUND Reading Location: [facility]
== END | disposition home or self-care (01) ==
LOC: US 17:05
PROVIDERS: PCP Internal Medicine; Referring Provider Internal Medicine; Visit Provider Internal Medicine
DX: E04.9 Nontoxic goiter, unspecified (principal)
CPT/HCPCS: 76536

== ENCOUNTER → 2024-05-30 | Outpatient (CLI) | payer MEDICAID, SELFPAY ==
[2024-06-03 20:08] LABS: Chlamydia By Nucleic Acid AMP Negative (Negative); Gonococcus By Nucleic Acid AMP Negative (Negative)
== END | disposition home or self-care (01) ==
LOC: LABSPEC 16:57
PROVIDERS: PCP Internal Medicine; Visit Provider Advanced Practice Midwife
DX: O99.280 Endocrine, nutritional and metabolic diseases complicating pregnancy, unspecified trimester (principal); E03.9 Hypothyroidism, unspecified; R79.89 Other specified abnormal findings of blood chemistry; Z3A.00 Weeks of gestation of pregnancy not specified
CPT/HCPCS: 87086; 87491; 87591

== ENCOUNTER → 2024-06-13 | Outpatient (CLI) | payer MEDICAID, SELFPAY ==
[2024-06-13 17:03] LABS: Absolute Lymphocyte Count 1.08 X10^3/uL (0.83-4.51); Basophil# 0.04 X10^3/uL; Basophil% 0.3 % (0-1); Eosinophil# 0.05 X10^3/uL; Eosinophils% 0.4 % (0-5); Hematocrit 38.1 % (37-47); Hemoglobin 12.8 g/dL (12.0-15.0); Lymphocyte # 1.08 X10^3/ul (0.83-4.51); Lymphocyte % 7.7 % (19-41); Mean Corp Hgb Conc 33.6 g/dL (32-36); Mean Corpuscular Hgb 29.2 pg (27.0-32.0); Mean Corpuscular Volume 86.8 fL (81-99); Mean Platelet Vol. 11.2 fl (6.2-12.0); Monocyte# 0.74 X10^3/uL; Monocyte% 5.3 % (0-10); NRBC Flagged by Analyzer 0 % (0-5); Neutrophil # 11.98 X10^3/uL (2.7-7.7); Neutrophil % 85.9 % (47-70); Platelet Count 215 K/mm3 (150-450); RBC Distribution Width CV 13.8 % (11.6-14.6); RBC Distribution Width SD 43.3 fl (35.1-43.9); Red Blood Count 4.39 M/mm3 (4.2-5.4)
[2024-06-13 17:43] LABS: HIV Nonreactive (Nonreactive); Hepatitis B Surface Antigen Nonreactive (Nonreactive); Hepatitis C Antibody Nonreactive (Nonreactive); Rubella IgG REAC (Nonreactive); Syphilis Antibodies Nonreactive (Nonreactive); Thyroid Stim Hormone (TSH) 0.025 uIU/mL (0.300-4.200)
== END | disposition home or self-care (01) ==
PROVIDERS: Advanced Practice Midwife; PCP Internal Medicine; Referring Provider Nurse Practitioner Family; Visit Provider Nurse Practitioner Family
DX: Z34.81 Encounter for supervision of other normal pregnancy, first trimester (principal); Z3A.00 Weeks of gestation of pregnancy not specified
CPT/HCPCS: 36415; 84439; 84443; 85025; 86703; 86762; 86780; 86803; 86850; 86900; 86901; 87340

== ENCOUNTER → 2024-07-24 | Outpatient (CLI) | payer MEDICAID, SELFPAY ==
[2024-07-24 16:41] LABS: Thyroid Stim Hormone (TSH) 0.061 uIU/mL (0.300-4.200)
== END | disposition home or self-care (01) ==
PROVIDERS: Internal Medicine; PCP Internal Medicine; Referring Provider Obstetrics & Gynecology; Visit Provider Obstetrics & Gynecology
DX: E03.9 Hypothyroidism, unspecified (principal); R79.89 Other specified abnormal findings of blood chemistry
CPT/HCPCS: 36415; 84439; 84443

== ENCOUNTER → 2024-08-23 | Outpatient (CLI) | payer MEDICAID, SELFPAY ==
[2024-08-23 17:37] LABS: Free T3 2.6 pg/mL (2.18-3.98)
--- OUTSIDE RECORDS SUMMARY | 2024-08-23 19:37 | XMS RPT_ITS | CCD ---
Author Organization [facility] Care Team Providers Care [employer] Assistant Manager Name Role Phone Unavailable Unavailable Tamburro, Lucas Unavailable Unavailable Tamburro, Lucas Unavailable Unavailable Care Physician, No Primary Primary Care Provider Unavailable Dr. Jordan Bynum Attending Provider [phone] Unavailable Primary Care Provider UnavailMary Weber MD Primary Care Provider Care Physician, No Primary Primary Care Provider Unavailable Dr. Vera Love MD Attending Provider Dr. Vera Love MD Referring Provider Dr. Chas Ernst DO Attending Provider [phone] Dr. Chas Ernst DO Emergency Provider Care Physician, No Primary Referring Provider Un available Dr. Mary Nunn MD Attending Provider Dr. Mary Nunn MD Primary Care Provider [phone] Dr. Mary Nunn MD Referring Provider America Dudley CNM Attending Provider [phone] Care Physician, No Primary Primary Care Provider Unavailable Sheri Khalil Attending Provider Cecilio ARVIZUCSheri Referring Provider MARY NUNN Primary Care Unavailable SERG SCHUSTER Attending Unavailable MARY NUNN Primary Care Unavailable SERG SCHUSTER Attending Unavailable Dr. Amelia Wong DO Attending Provider Dr. Amelia Wong DO Referring Provider Care Physician, No Primary Primary Care Provider Unavailable Dr. Meliton Herr MD Attending Provider Care Physician, No Primary Primary Care Unava ilable Care Physician, No Primary Referring Unava ilable Arline, Mary Attending Unavailable Meliton Herr Attending Unavailable [place], Mary Primary Care Unavailable [place], Mary Referring Unavailable Care Physician, No Primary Primary Care Unava ilable Care Physician, No Primary Referring Unava ilable Vera Love Attending Unavailable [place], Mary Primary Care Unavailable [place], Mary Referring Unavailable America Dudley Attending Unavailable [place], Mary Primary Care Unavailable Sheri Hernandes Referring Unavailable Sheri Hernandes Attending Unavailable Care Physician, No Primary Primary Care Unava ilable America Dudley Referring Unavailable America Dudley Attending Unavailable Amelia Wong Referring Unavailabl e Vande Andrea, Amelia Attending Unavailabl e Arline, Mary Primary Care Unavailable Care Physician, No Primary Primary Care Unava ilable America Dudley Referring Unavailable America Dudley Attending Unavailable Care Physician, No Primary Primary Care Unava ilable Vera Love Attending Unavailable Vera Love Referring Unavailable Care Physician, No Primary Primary Care Unava ilable Chas Ernst Attending Unavailable [place], Mary Primary Care Unavailable Arline, Mary Referring Unavailable America Dudley Attending Unavailable [place], Mary Primary Care Unavailable Arline, Mary Referring Unavailable Devora Go Attending Unavailable Care Physician, No Primary Primary Care Unava ilable Vera Love Attending Unavailable Vera Love Consulting Unavailable Vera Love Referring Unavailable Care Physician, No Primary Referring Unava ilable Care Physician, No Primary Primary Care Unava ilable America Dudley Attending Unavailable Care Physician, No Primary Primary Care Unava ilable Care Physician, No Primary Referring Unava ilable America Dudley Attending Unavailable Care Physician, No Primary Primary Care Unava ilable Sheri Hernandes Referring Unavailable Sheri Hernandes Attending Unavailable Care Physician, No Primary Primary Care Unava ilable Vera Love Referring Unavailable Vera Love Attending Unavailable Arline, Mary Primary Care Unavailable America Dudley Attending Unavailable [place], Mary Attending Unavailable [place], Mary Primary Care Unavailable Arline, Mary Referring Unavailable Arline, Mary Attending Unavailable Mary Nunn Primary Care Unavailable Mary Nunn Referring Unavailable Care Physician, No Primary Primary Care Unava ilable Vera Love Attending Unavailable Vera Love Referring Unavailable Care Physician, No Primary Primary Care Unava ilable America Dudley Referring Unavailable America Dudley Attending Unavailable Amelia Wong Attending UnavailMary Weber Primary Care Unavailable Mary Nunn Referring Unavailable NO PRIMARY CAREMD Primary Care Unavailable AMERICA DUDLEY Attending Unavailable AMERICA DUDLEY Referring Unavailable JOAQUIN AKBAR Attending Unavailable MARY NUNN Primary Care Unavailable ANITRA GARZA Referring Unavailable Arline CLINTON, Dr. Chavez Primary Care Provider [phone] Dr. Mary Nunn MD Referring Provider Devora Go CNM Attending Provider Devora Go CNM Referring Provider [phone] Medications Current Medications Medication Drug Class(es) Dates Sig (Normalized) Sig (Original) amoxicillin 875 mg oral tablet (3 sources) Penicillin-class Antibacterial Start: 07-02-2024 End: 07-12-2024 take 1 tablet by mouth twice daily amoxicillin (AMOXIL) 875 mg tablet Indications: Acute non-recurrent frontal sinusitis Take 1 tablet by mouth two times a day for 10 days. 20 tablet 07/02/2024 07/12/2024 Active Start: 05-27-2024 End: 06-03-2024 take 1 tablet by mouth twice daily amoxicillin (AMOXIL) 875 mg tablet Indications: Acute otitis media, left Take 1 tablet by mouth two times a day for 7 days. 14 tablet 05/27/2024 06/03/2024 Active Start: 05-19-2022 End: 05-26-2022 take 1 tablet by mouth every twelve hours amoxicillin (AMOXIL) 875 mg tablet Indications: Bacterial sinusitis Take 1 tablet by mouth every 12 hours for 7 days. 14 tablet 0 05/19/2022 05/26/2022 Active Comment on above: Take 1 tablet by nupur every 12 hours for 7 days. levothyroxine sodium 0.088 mg oral tablet (20 sources) l-Thyroxine Start: take 1 tablet by mouth once daily Levothyroxine 88 mcg tablet Active 88 ug PO daily 60 July 26, 2024 5:27pm Start: 07-26-2024 End: 07-26-2024 take 1 tablet by mouth once daily Levothyroxine 75 mcg tablet Discontinued 75 ug PO daily 60 July 26, 2024 5:26pm July 26, 2024 5:27pm Start: 06-14-2024 End: 07-26-2024 take 1 tablet by mouth once daily Levothyroxine 100 mcg tablet Discontinued 100 ug PO daily 60 June 14, 2024 12:00am July 26, 2024 5:26pm Start: 05-12-2024 take 1 tablet by nupur th once daily levothyroxine (SYNTHROID) 112 mcg tablet Take 1 tablet by mouth once daily. 05/12/2024 Active Start: 04-15-2024 End: 06-14-2024 take 1 capsule by mouth once daily Levothyroxine 112 mcg capsule Discontinued 112 ug PO daily 30 June 03, 2024 10:55am June 14, 2024 1:20pm Mv-Mn No.85-Nwkxk-Dfj-Herb 293 (Alive Premium ) 120 mcg-25 mg- 66.7 mg tablet,chewable (8 sources) Start: 08-09-2024 take 1 tablet by mouth once daily Mv-Mn No.52-Tlxnt-Awr-Herb 293 (Alive Premium ) 120 mcg-25 mg- 66.7 mg tablet,chewable Active 2 {tbl} PO DAILY August 09, 2024 2:12pm Start: 05-30-2024 End: 08-09-2024 Mv-Mn No.80-Uecgg-Ivk-Herb 2 93 (Alive Premium ) 120 mcg-25 mg- 66.7 mg tablet,chewable Discontinued {tbl} PO May 30, 2024 12:00am August 09, 2024 2:13pm Start: 05-30-2024 Mv-Mn No.45-Fo fpu-Fec-Xqux 293 (Alive Premium ) 120 mcg-25 mg- 66.7 mg tablet,chewable Active {tbl} PO May 30, 2024 12:00am [id number]-n0-hbe-uji-gk sh ( MULTI-DHA,WITH VIT K,) 27 mg iron-800 mcg-260 mg (5 sources) Start: 05-21-2018 [id number]-AG-y9-oyh-vyg-jw sh ( MULTI-DHA,WITH VIT K,) 27 mg iron-800 mcg-260 mg Take by mouth. 05/21/2018 Active Start: 05-21-2018 [id number]-cnoc-LI -m9-xuj-lyt-fish ( MULTI-DHA,WITH VIT K,) 27 mg iron-800 mcg-260 mg Take by mouth. 0 05/21/2018 Active Comment on above: Take by mouth. valACYclovir 1000 mg oral tablet (10 sources) Herpesvirus Nucleoside Analog DNA Polymerase Inhibitor, Herpes Simplex Virus Nucleoside Analog DNA Polymerase Inhibitor, Herpes Zoster Virus Nucleoside Analog DNA Polymerase Inhibitor Start: 08-01-2024 End: 08-09-2024 Valacyclovir (Valtrex) 1 gram tablet Active 1000 mg PO TWICE A DAY as needed for at onset of cold sore August 09, 2024 2:12pm Start: 08-22-2023 End: 03-29-2024 take 1 tablet by mouth twice daily as needed Valacyclovir (Valtrex) 500 mg tablet Discontinued 500 mg PO TWICE A DAY as needed for cold sores August 22, 2023 12:00am March 29, 2024 4:05am Completed/Discontinued Medications Medication Drug Class(es) Dates Sig (Normalized) Sig (Original) acetaminophen 325 mg / HYDROcodone bitartrate 5 mg oral tablet (7 sources) Opioid Agonist Start: 07-24-2019 End: 07-27-2019 take 1 tablet by mouth every six hours as needed Hydrocodone-Acetami nophen Discontinued 1 TABLET PO EVERY 6 HOURS NEEDED 10 3 July 24, 2019 5:59pm July 27, 2019 12:02am Start: 07-24-2019 End: 07-27-2019 Hydrocodone-Acetaminophen 1 TABLET tablet Discontinued 1 {tbl} PO EVERY 6 HOURS NEEDED as needed for Pain 10 3 0 July 24, 2019 July 26, 2019 12:00am July 27, 2019 12:02am Ureteric colic Unspecified renal colic acetaminophen 325 mg / oxyCODONE hydrochloride 5 mg oral tablet (6 sources) Opioid Agonist Start: 03-29-2024 End: 04-15-2024 Oxycodone-Acetaminophen 5-32 5 mg tablet Discontinued 1 {tbl} PO EVERY 6 HOURS NEEDED as needed for Pain 12 3 0 March 29, 2024 April 15, 2024 10:01am Calculus of left kidney Calculus of kidney B cmplx 4/vit D3/C/folic/zinc (VITAL-D RX ORAL) (5 sources) End: 07-02-2024 B cmplx 4/vit D3/C/folic/zin c (VITAL-D RX ORAL) Take by mouth. 07/02/2024 Discontinued B cmplx 4/vit D3 /C/folic/zinc (VITAL-D RX ORAL) Take by mouth. Active B cmplx 4/vit D3 /C/folic/zinc (VITAL-D RX ORAL) Take by mouth. 0 Active Comment on above: Take by mouth. ibuprofen 600 mg oral tablet (6 sources) Nonsteroidal Anti-inflammatory Drug Start: 2024 End: 2024 take 1 tablet by mouth every six hours as needed for pain Ibuprofen 600 mg tablet Discontinued 600 mg PO EVERY 6 HOURS NEEDED as needed for pain 20 0 March 29, 2024 1:00am April 15, 2024 10:00am methylPREDNISolone 4 mg oral tablet (3 sources) Corticosteroid Start: 2022 End: 2024 methylPREDNISolone (MEDROL, PRICILLA,) 4 mg Dose-Pack Indications: URI, acute Take by mouth per package instructions 21 tablet 12/24/2022 07/02/2024 Discontinued Comment on above: Take by mouth per pa ckage instructions Multivit 56-Hupc-Slsixf 1-Dha (Pnv-Dha) 27 mg iron-1 mg -300 mg capsule (6 sources) Start: 2023 End: 2024 Multivit 69-Drwq-Gjbjig 1-Dha (Pnv-Dha) 27 mg iron-1 mg -300 mg capsule Discontinued 1 NMA PO DAILY August 22, 2023 12:00am March 29, 2024 4:05am ondansetron 4 mg disintegrating oral tablet (6 sources) Serotonin-3 Receptor Antagonist Start: 2024 End: 2024 take 1 tablet by mouth every eight hours as needed for nausea Ondansetron 4 mg tablet,disintegrating Discontinued 4 mg PO EVERY 8 HOURS NEEDED as needed for Nausea 10 0 March 29, 2024 1:00am April 15, 2024 10:01am Tablet (14 sources) Start: 2019 End: 2023 take 1 tablet by mouth once daily Tablet Discontinued 1 {tbl} PO DAILY 0 0 October 07, 2019 6:45am August 22, 2023 9:50am 1 daily Start: 10-07-2019 End: 08-22-2023 take 1 tablet by mouth once daily Tablet Discontinued 1 {tbl} PO DAILY 0 October 07, 2019 6:45am August 22, 2023 9:50am 1 daily Start: 10-07-2019 take 1 tablet by nupur th once daily Tablet Active 1 TABLET PO DAILY 0 October 07, 2019 6:45am 1 daily Start: 03-03-2018 End: 10-07-2019 take 1 tablet by mouth once daily Tablet Discontinued 1 TABLET PO DAILY March 03, 2018 7:57am October 07, 2019 6:45am Start: 03-03-2018 End: 10-07-2019 Tablet Discontinued 1 {tbl} PO DAILY March 03, 2018 1:00am October 07, 2019 6:45am Start: 03-03-2018 End: 10-07-2019 Tablet Discontinued 1 {tbl} PO DAILY March 03, 2018 1:00am October 07, 2019 6:45am Problems Active Problems Problem Classification Problem Date Documented Date Episodic/Chronic Administrative/social admission (5 sources) First encounter by subject; Translations: [Persons encountering health services in other specified circumstances] 04-15-2024 Episodic Calculus of urinary tract (18 sources) Ureteric colic; Translations: [Unspecified renal colic] 07-25-2019 Episodic Genitourinary symptoms and ill-defined conditions (6 sources) Blood in urine; Translations: [Hematuria, unspecified] 04-06-2024 Episodic Other complications of (20 sources) Missed miscarriage; Translations: [Missed ] 05-30-2024 Episodic Comment on above: 12 week missed ab no FHT seen. H/O D&C 09/2023 with SM Other complications of (20 sources) High risk ; Translations: [Supervision of high risk , unspecified, unspecified trimester] 05-30-2024 Episodic Comment on above: , CODY 12/29 PC: Christian Martinez Kynzie, Dawson BF: Sulaiman , CODY 04/17/24, Christian Luis Kynzie, Dawson BF Sulaiman Other complications of (13 sources) Abnormal findings on screening of mother; Translations: [Abnormal chromosomal and genetic finding on screening of mother] 06-20-2024 Episodic Comment on above: NIPT XYY, discussed genetic counseling and offered MFM referral, will discuss further at next visit Other complications of (1 source) Abnormal chromosomal and genetic finding on screening of mother; Translations: [Abnormal chromosomal and genetic finding on screening of mother] Onset: 07-24-2024 Episodic Other complications of (2 sources) Missed ; Translations: [Missed ] Onset: 11-30-2023 Episodic Other complications of (1 source) Supervision of high risk , unspecified, unspecified trimester; Translations: [Supervision of high risk , unspecified, unspecified trimester] Onset: 07-24-2024 Episodic Other complications of (1 source) Endocrine, nutritional and metabolic diseases complicating , unspecified trimester; Translations: [Endocrine, nutritional and metabolic diseases complicating , unspecified trimester] Onset: 06-04-2024 Episodic Other ear and sense organ disorders (2 sources) Otalgia, left ear; Translations: [Otalgia, left ear] Onset: 06-10-2017 Episodic Other and delivery including normal (20 sources) Vaginal delivery; Translations: [Encounter for full-term uncomplicated delivery] Onset: 10-13-2023 Episodic Comment on above: NIPT w gender & calderón ier- undecided NEEDS pap and GCC at 2nd visit. See note. declines NIPT Other screening for suspected conditions (not mental disorders or infectious disease) (20 sources) Thyroid hormone tests abnormal; Translations: [Other specified abnormal findings of blood chemistry] Onset: 11-02-2023 10-17-2023 Episodic Comment on above: need free T4 now. If normal, repeat TSH and Free T4 in 3 months Other upper respiratory disease (1 source) Congestion of nasal sinus; Translations: [Nasal congestion] Episodic Other upper respiratory infections (1 source) Bacterial sinusitis; Translations: [Chronic sinusitis, unspecified] Chronic Other upper respiratory infections (5 sources) Acute upper respiratory infection, unspecified; Translations: [Acute upper respiratory infection] Onset: 06-10-2017 12-24-2022 Episodic Otitis media and related conditions (5 sources) Otitis media, unspecified, left ear; Translations: [Dysfunction of bilateral eustachian tubes] Onset: 06-10-2017 Episodic Residual codes; unclassified (1 source) Gestation period, 39 weeks; Translations: [39 weeks gestation of ] Episodic Residual codes; unclassified (6 sources) Family history of autism; Translations: [Family history of other mental and behavioral disorders] 11-01-2023 Episodic Comment on above: Cousin on Mothers si de of family Residual codes; unclassified (5 sources) Medication refused; Translations: [Immunization not carried out because of patient refusal] 04-15-2024 Episodic Residual codes; unclassified (1 source) Gestation period, 14 weeks; Translations: [14 weeks gestation of ] 07-02-2024 Episodic Residual codes; unclassified (1 source) 14 weeks gestation of ; Translations: [14 weeks gestation of (HCC)] Onset: 07-02-2024 Episodic Residual codes; unclassified (1 source) 17 weeks gestation of ; Translations: [17 weeks gestation of ] Onset: 07-24-2024 Episodic Residual codes; unclassified (1 source) 13 weeks gestation of ; Translations: [13 weeks gestation of ] Onset: 06-27-2024 Episodic Residual codes; unclassified (1 source) 9 weeks gestation of ; Translations: [9 weeks gestation of ] Onset: 05-30-2024 Episodic Thyroid disorders (20 sources) Hypothyroidism; Translations: [Hypothyroidism, unspecified] Onset: 04-30-2024 05-30-2024 Chronic Comment on above: Levothyroxine 112mcg Levothyroxine 112mcg 88mcg-repeat labs 08/23 Varicose veins of lower extremity (7 sources) Varicose veins of lower extremity; Translations: [Asymptomatic varicose veins of unspecified lower extremity] Onset: 10-13-2023 11-01-2023 Episodic Comment on above: left leg above the k nee Viral infection (1 source) Viral disease; Translations: [Viral infection, unspecified] Episodic Past or Other Problems Problem Classification Problem Date Documented Da te Episodic/Chronic Abdominal pain (1 source) Unspecified abdominal pain; Translations: [Unspecified abdominal pain] Onset: 04-15-2024 Episodic Malaise and fatigue (6 sources) Fatigue; Translations: [Other fatigue] Onset: 04-26-2024 04-15-2024 Episodic Other female genital disorders (1 source) Recurrent loss; Translations: [Recurrent loss] Onset: 11-06-2023 Episodic Residual codes; unclassified (1 source) Family history of other mental and behavioral disorders; Translations: [Family history of other mental and behavioral disorders] Onset: 10-13-2023 Episodic NEGATED: Highlighted row has been ruled out!Unclassified (1 source) No known active problems 07-02-2024 Results Test Name Value Interpretation Reference Range Facility Progress Noteon 08-21-2024 Cooler Supervisor Authentication Interface Message Text New patient 08/22/2024 RE: Vesta Hernandez : 1995 AGE: 29 y.o. [facility]#: [id number] Gestational Age: 21 Weeks Delivery Hospital: [facility] Reason for visit: Chief Complaint Patient presents with ECHO echo for suboptimal cardiac views, abnormal cell free DNA with increased risk for XYY. Other indications:Materna l hypothyroidism for which she remains on levothyroxine. [...] performed in visit on 08/21/24 Echo New Narrative [facility] [place], [place] [id number] [email or web address] Echocardiogram Report M-mode, complete 2D, complete spectral Doppler, and color Doppler PATIENT: Vesta Hernandez STUDY DATE/TIME: Aug 21 2024 1:27PM HEIGHT: 167.6cm : 1995 WEIGHT: 71.2kg AGE: 29year(s) BSA/BMI: 1.83m^2 / 25.3kg/m^2 GENDER: F BP: 122 / 73 LOCATION: [facility] REFERRING PHYSICIAN: Anitra Garza Cnp ORDERING PROVIDER: Anitra Garza Cnp READING PHYSICIAN: NEIDA Cook MOBILE UI DESIGNER: Kylah Chen RDCS SUMMARY: No significant congenital [...] free DNA with XYY. Recommendations: follow-up if internet sales consultant hears a heart murmur or otherwise clinically indicated. REASON FOR EXAM: Abnormal CFDNA, suboptimal cardiac views. : : - Maternal age: 30yr. - : 6. - Parity: 4. - Estimated delivery date: 12/29/2024. - Gestational age: 21 [id number]. STUDY AND PROCEDURE DATA: The patient is . Procedure Description: New ([id number]) . Study status: Routine. Location: lab. Procedure: [...] a patent foramen ovale. There is a lpwbe-nc-dtaj shunt. Left atrium: - The atrium is [...] size is normal. Wall thickness is normal. Sy (more content not included)... Normal [facility] Endocrinology Visit Reporton 08-09-2024 Endocrinology Visit Report [facility] [address] [place] [address] OFFICE VISIT Date of Service: 08/09/24 MR#: [id number] Acct: [id number] Name: VESTA HERNANDEZ Rep #: [id number] : 1995 Provider: Brett Diego Age/Sex: 28/F Location: [facility] [place] Status: Signed Intake Vital Signs 07/24/24 14:30 08/09/24 14:10 Height 5 ft 6 in 5 ft 6 in Weight: 158 lb BMI 25.4 BP 114/84 H Blood Pressure Location Lt brachial Position Sitting Pulse 105 H Pulse Source Monitor Pulse Oximetry (%) 94 Oxygen Delivery Method room air Intake Visit Reasons: Thyroid Chief Complaint: Thyroid Senior Escrow Officer Required: No Accompanied by: Self Is patient in pain?: No Allergies No Known Allergies Allergy (Verified 08/09/24 14:12) Medications ???Medication ???Instructions ???Recorded ???Confirmed ???Type levothyroxine 88 mcg tablet 88 mcg PO QDAY #60 tabs 07/26/24 0 08/09/24 Rx ksyihoqf-ngn-cbcag 120 mcg-dha 25 2 tab PO DAILY 08/09/24 08/09/24 History mg-herb no.293 66.7 mg chew tablet (Alive Premium ) valacyclovir 1 gram tablet 1,000 mg PO BID PRN at onset of History (Valtrex) cold sore Patient : Yes (19wk 5 days) [facility] Medical History Missed Kidney stone Alcohol use Low iron Migraine headache Blackout History of echocardiogram (spontaneous vaginal delivery) Surgical History H/O dilation and curettage History of cystoscopy S/P foot surgery, right History of laparoscopic appendectomy ( 07/19/19) Family History Father Cancer, Onset Age: 57 Prostate ca Hypertension Grandfather Cancer, Onset Age: 70 Maternal Prostate Cancer Grandmother COPD (chronic obstructive pulmonary disease) Maternal Mother Hypertension Sister Fatty liver due to alcoholism Unknown Thyroid disorder Aunt Thyroid disorder Social History adopted: No household members: significant other and children housing: house number of children: 4 current occupational status: unemployed current occupation: [employer] pets and animals: No history of recent travel: No sexually active: Yes Smoking Status: Never smoker Electronic Cigarette Use: not used second hand exposure: No alcohol intake: former details: quit back in 2019 substance use type: does not use well-balanced diet: daily or most days caffeine: Yes Type: tea eating out: 1-3 times/week during the past year weight has: remained stable what type of physical activity do you participate in: walking frequency: 5-6 times per week duration: 30-45 minutes/day andie/congregational: None seatbelt use: always do you feel safe at home: Yes additional 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 She is currently for the 6th time. She has 4 healthy children. She had a miscarriage in September,. She has had many thyroid levels performed: 10/2020 TSH 2.23 09/2023 TSH 6.14 FT4 0.92 10/2023 TSH 6.7 FT4 0.93 01/2024 TSH 12.1 FT4 0.9 03/2024 TSH 9.6 FT4 0.92 05/2024 TSH 0.025 FT4 1.9 06/2024 TSH 0.061 FT4 1.5 She was started on levothyroxine 112 mcg, lowered to 100 mcg and more recently lowered to 88 mcg. She was feeling symptomatic on the higher doses, but is feeling well now. Her aunt and great aunt have thyroid issues. ROS Const Constitutional: No fatigue, weakness or weight change Cardio Cardiology: No chest pain at rest, chest pain with exertion or shortness of breath Musc Musculoskeletal: No numbness Neuro Neurology: No weakness or numbness Skin Skin: No wounds Endo Endocrine: No fatigue or weight change Exam Const General: cooperative, healthy appearing, comfortable, no acute distress, well developed and not cushingoid Nutritional Appearance: well nourished Orientation: alert, awake and oriented x3 HENMT Head: normal to inspection Ears: hearing grossly normal bilaterally Nose: external nose normal Mouth: oral mucosae normal Eyes General: appearance normal, both eyes and all related structures Alignment and Position: alignment normal Periorbital: periorbital findings normal Eyelids: eyelids normal Conjunctivae: conjunctivae normal Neck Neck: normal visual inspection Neck mass: No Thyroid: diffusely enlarged Lymphatic: no lymphadenopathy noted Chest Chest palpation inspection: normal inspection of the corinne (more content not included)... Normal [facility] - Chemistry and C hemistry - challengeOrdered By: Amelia Mendez on 07-24-2024 Glucose Ql (U) Negative [facility] - UrinalysisOrder ed By: Amelia Mendez on 07-24-2024 Protein Ql (U) Negative [facility] Station Baggage Agent Office Visit Reporton 07-24-2024 Station Baggage Agent Office Visit Report [facility] [address], [address] [place] [address] OFFICE VISIT Date of Service: 07/24/24 MR#: [id number] Acct: [id number] Name: VESTA HERNANDEZ Brett Rep #: [id number] : 1995 Provider: Dr. Amelia Hammonds DO Age/Sex: 28/F Location: [facility] [place].[facility] Status: Signed Intake Vital Signs 05/30/24 13:01 06/27/24 15:02 07/24/24 14:29 07/24/24 14:30 Height 5 ft 6 in 5 ft 6 in 5 ft 6 in 5 ft 6 in Weight: 157 lb 6 oz BMI 25.4 BP 121/81 H Intake Visit Reasons: 17wk ob Senior Escrow Officer Required: No Is patient in pain?: No Allergies No Known Allergies Allergy (Verified 07/24/24 14:28) Medications ???Medication ???Instructions ???Recorded ???Confirmed ???Type tvigsgem-pmx-cvcio 120 mcg-dha 25 tab PO 05/30/24 07/24/24 History mg-herb no.293 66.7 mg chew tablet (Alive Premium ) levothyroxine 100 mcg tablet 100 mcg PO QDAY #60 tabs 06/14/24 07/24/24 Rx Last Menstrual Period: 03/24/24 Zika: Zika virus screening: Negative : No PFSH PFSH Medical History Missed Kidney stone Alcohol use Low iron Migraine headache Blackout History of echocardiogram (spontaneous vaginal delivery) Surgical History H/O dilation and curettage History of cystoscopy S/P foot surgery, right History of laparoscopic appendectomy ( 07/19/19) Family History Father Cancer, Onset Age: 57 Prostate ca Hypertension Grandfather Cancer, Onset Age: 70 Maternal Prostate Cancer Grandmother COPD (chronic obstructive pulmonary disease) Maternal Mother Hypertension Sister Fatty liver due to alcoholism Unknown Thyroid disorder Aunt Thyroid disorder Social History adopted: No household members: significant other and children housing: house number of children: 4 current occupational status: unemployed current occupation: [employer] pets and animals: No history of recent travel: No sexually active: Yes Smoking Status: Never smoker alcohol intake: former details: quit back in 2019 substance use type: does not use well-balanced diet: daily or most days caffeine: Yes Type: tea eating out: 1-3 times/week during the past year weight has: remained stable what type of physical activity do you participate in: walking frequency: 5-6 times per week duration: 30-45 minutes/day andie/congregational: None seatbelt use: always do you feel safe at home: Yes additional 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: BF Sulaiman GrubbsYossi [employer]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 Date Name GA/Weeks Outcome Route Bth Weight Infant Gen Labor Lgth Anesthesia Del Locatn Provider FOB 03/23/14 Melvina 40 live - full term 8#1oz Female epidural [place] [facility] eral Paul 03/03/18 [place] 39 live - full term 8#13oz Male epidural [facility] Dr. Elio Hilario 10/06/19 [place] 38 live - full term 6#3oz Female epidural [facility] Hol samina-Igor Hilario 05/23/21 Neville 38 live - full term 8#5oz Male epidural [facility] Hol Oswaldo Hilario 10/16/23 D C HPI 17wk ob Details: VESTA HERNANDEZ is a 28 year old who presents for routine OB visit. OB Visit CODY Calculator Estimated Delivery Date Method Current WG Current Estimate 12/29/24 LMP (Certain) 17w 3d Other Estimates 12/26/24 Ultrasound #1 17w 6d Expected Delivery Route/Plan Labor Preferences- CB/BF classes: [] labor support person: [] labor intervention preferences: [] pain management options preferred: [] cut cord/dad catch: [] : [] PP control planned: [] discussed possible routes of delivery and associated risks: [] special requests: [] Specific Issue/Plans Covid status: [] Flu vaccine: [] Tdap vaccine: [] Rhogam: [] LARC form signed: [] Problem list reviewed and updated with the most current plan of care details and appropriate orders placed. Relevant counseling for the gestational age provided. Continue routine care and follow up unless otherwise noted in visit notes/problem list details Initial Weight: 163 lb Date -???-???-???-???-?? ?-???-???-???-???-? ??-???-???- EGA Weight BP Urine Prot -???-???-???-???-?? ?-???-???-???-???-? ??-???-???- Glucose FHR FuHt Pres Dilation -???-???-???-???-?? ?-???-???-???-???-? ??-???-???- Effaced St Visit Note 05/30/24 -???-???-???-???-?? ?-???-???-???-???-? ??-???-???- (more content not included)... Normal [facility] T4 Free Directon 07-24-2024 T4 FREE DIRECT 1.50 ng/dL High 0.76-1.46 [facility] Comment on above: Performed By: #### L 501.9520, L506.0400, L100.0100, L506.1000, L503.6030, L503.6550 #### [facility] Laboratory [address] [place], [place], [address] T4 freeOrdered By: Amelia Mendez on 07-24-2024 Free T4 [Mass/Vol] 1.50 ng/dL High 0.76-1.46 [facility] TSH DL <= 0.005 mIU/L QnOrde red By: Tosin Remy on 07-24-2024 TSH Qn 0.061 uIU/mL Low 0.300-4.200 [facility] Thyroid Stim Hormone (TSH)on 07-24-2024 TSH 0.061 uIU/mL Low 0.300-4.200 [facility] Comment on above: Performed By: #### L 501.9520, L506.0400, L100.0100, L506.1000, L503.6030, L503.6550 #### [facility] Laboratory [address] [place], [place], [address] CNOVon 07-02-2024 CNOV Office Visit ([facility]) ---- VESTA HERNANDEZ ([id number]) 1995 F Date Time Provider Department 07/02/24 6:30 PM SERG GRUBBS [facility] During your visit today, we recorded the following information about you: Temperature Pulse Respiration Blood pressure 98.9 degrees 95/minute 22/minute 110/76 Weight Last Period 71.2 kg 12/10/22 Serg Grubbs, FOREST FIRE CONTROL OFFICER.[facility] 07/02/2024 6:50 PM Signed [facility] Urgent [facility] [address] [address] Dept: [phone] Dept Subjective Subjective Vesta Hernandez is a 28 year old female who [...] only minimally provide some relief. States that jail through her symptoms she thought she was [...] Negative for myalgias. Neurological: Negative for headaches. Endo/Heme/Allergies : Negative for environmental allergies. ALLERGIES No Known Allergies Current Outpatient Medications on File Prior to Visit Medication Sig levothyroxine (SYNTHROID) 112 mcg tablet Take 1 tablet by mouth once daily. (Patient taking differently: Take 100 mcg by mouth once daily.) FHL235-frjx-SZ-x2-h tyler-epa-fish ( MULTI-DHA,WITH VIT K,) 27 mg iron-800 mcg-260 mg Take by mouth. No current facility-administer ed medications on file prior to visit. There [...] and frontal sinus tenderness present. Mouth/Throat: Lips: [place]. Mouth: Mucous membranes are moist. No oral [...] (HCC) - ICD9: V22.2, ICD10: Z3A.14 Serg Grubbs, FOREST FIRE CONTROL OFFICER.SOLAR PHOTOVOLTAIC INSTALLER Differential Diagnoses - Sinusitis is more likely for the following reason(s): suggested by HANDP Disposition The patient was discharged. Due to length of time that patient has been experiencing her symptoms, we will start her on amoxicillin considering she is 14 weeks . Patient to follow-up with PCP in 3 to 5 days symptoms persist or sooner (more content not included)... Normal [facility] - Chemistry and C hemistry - challengeOrdered By: America Dudley on 06-27-2024 Glucose Ql (U) Negative [facility] Laboratory - UrinalysisOrder ed By: America Dudley on 06-27-2024 Protein Ql (U) Negative [facility] Station Baggage Agent Office Visit Reporton 06-27-2024 Station Baggage Agent Office Visit Report [facility] [address], [address] [place] [address] OFFICE VISIT Date of Service: 06/27/24 MR#: [id number] Acct: [id number] Name: VESTA HERNANDEZ Rep #: [id number] : 1995 Provider: FRANDY Peterson ams Age/Sex: 28/F Location: [facility] [place] Status: Signed Intake Vital Signs 04/15/24 09:05 05/30/24 13:01 06/27/24 15:02 Height 5 ft 6 in 5 ft 6 in 5 ft 6 in Weight: 155 lb 4 oz BMI 25.0 BP 119/83 H Intake Visit Reasons: 13wk ob Chief Complaint: 13wk OB Senior Escrow Officer Required: No Is patient in pain?: No Allergies No Known Allergies Allergy (Verified 06/27/24 15:00) Medications ???Medication ???Instructions ???Recorded ???Confirmed ???Type radgiteb-qda-xphyl 120 mcg-dha 25 tab PO 05/30/24 06/27/24 History mg-herb no.293 66.7 mg chew tablet (Alive Premium ) levothyroxine 100 mcg tablet 100 mcg PO QDAY #60 tabs 06/14/24 06/27/24 Rx Last Menstrual Period: 03/24/24 : No PFSH PFSH Medical History Missed Kidney stone Alcohol use Low iron Migraine headache Blackout History of echocardiogram (spontaneous vaginal delivery) Surgical History H/O dilation and curettage History of cystoscopy S/P foot surgery, right History of laparoscopic appendectomy ( 07/19/19) Family History Father Cancer, Onset Age: 57 Prostate ca Hypertension Grandfather Cancer, Onset Age: 70 Maternal Prostate Cancer Grandmother COPD (chronic obstructive pulmonary disease) Maternal Mother Hypertension Sister Fatty liver due to alcoholism Unknown Thyroid disorder Aunt Thyroid disorder Social History adopted: No household members: significant other and children housing: house number of children: 4 current occupational status: unemployed current occupation: [employer] pets and animals: No history of recent travel: No sexually active: Yes Smoking Status: Never smoker alcohol intake: former details: quit back in 2019 substance use type: does not use well-balanced diet: daily or most days caffeine: Yes Type: tea eating out: 1-3 times/week during the past year weight has: remained stable what type of physical activity do you participate in: walking frequency: 5-6 times per week duration: 30-45 minutes/day andie/congregational: None seatbelt use: always do you feel safe at home: Yes additional 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 Date Name GA/Weeks Outcome Route Bth Weight Infant Gen Labor Lgth Anesthesia Del Locatn Provider FOB 03/23/14 Melvina 40 live - full term 8#1oz Female epidural [place] [facility] eraessence Miller 03/03/18 [place] 39 live - full term 8#13oz Male epidural [facility] Dr. Elio Hilario 10/06/19 [place] 38 live - full term 6#3oz Female epidural [facility] Hol Oswaldo Hilario 05/23/21 Jamin 38 live - full term 8#5oz Male epidural [facility] Hol Oswaldo Hilario 10/16/23 D C HPI 13wk ob Details: VESTA HERNANDEZ is a 28 year old who presents for routine OB visit. OB Visit CODY Calculator Estimated Delivery Date Method Current WG Current Estimate 12/29/24 LMP (Certain) 13w 4d Other Estimates 12/26/24 Ultrasound #1 14w 0d Expected Delivery Route/Plan Labor Preferences- CB/BF classes: [] labor support person: [] labor intervention preferences: [] pain management options preferred: [] cut cord/dad catch: [] : [] PP control planned: [] discussed possible routes of delivery and associated risks: [] special requests: [] Specific Issue/Plans Covid status: [] Flu vaccine: [] Tdap vaccine: [] Rhogam: [] LARC form signed: [] Problem list reviewed and updated with the most current plan of care details and appropriate orders placed. Relevant counseling for the gestational age provided. Continue routine care and follow up unless otherwise noted in visit notes/problem list details Initial Weight: 163 lb Date -???-???-???-???-?? ?-???-???-???-???-? ??-???-???- EGA Weight BP Urine Prot -???-???-???-???-?? ?-???-???-???-???-? ??-???-???- Glucose FHR FuHt Pres Dilation -???-???-???-???-?? ?-???-???-???-???-? ??-???-???- Effaced St Visit Note 05/30/24 -???-???-???-???-?? ?-???-???-???-???-? ??-???-???- 9w 4d 163 lb 4 oz (+4 oz) 128/81 -???-???-???-???-?? ?-???-???-?? (more content not included)... Normal [facility] Misc.on 06-24-2024 [facility] Misc. 4 COMMENT Normal . [facility] Comment on above: Order Comment: [id number] 8TSH R AB SERUM FZ Result Comment: Test Ordered: [id number] TSH Receptor Antibody (TBII) TSH Receptor Antibody (TBII) <0.3 U/L ES Reference Range: . Reference Range: Antibody Titer: <1.0 U/L = Negative 1.1 - 1.5 U/L = Equivocal >1.5 U/L = Positive Performed at: [facility] [employer] [address] [place] [id number] Subeditor: Renato Bates MD, Phone: [phone] Performed at: - [facility] [address] [id number] Subeditor: Gopi Covington PhD, Phone: [phone] Performed By: #### L 501.9520, L506.0400, L100.0100, L506.1000, L503.6030, L503.6550 #### [facility] Laboratory [address] [place] [address]. [place], [address] Absolute lymphocyte countOrd ered By: America Dudley on 06-13-2024 Lymphocytes Auto (Unsp spec) [#/Vol] 1.08 10*3/uL 0.83-4.51 [facility] Absolute neutrophil countOrd ered By: America Dudley on 06-13-2024 Neutrophils (Bld) [#/Vol] 12.0 10*3/uL High 2.0-7.7 [facility] Automated lymphocyte count a s percentage of total leukocytesOrdered By: America Dudley on 06-13-2024 Lymphocytes/100 WBC Auto (Unsp spec) 7.7 % Low 19-41 [facility] Basophil percentageOrdered B y: America Dudley on 06-13-2024 Basophils/100 WBC (Bld) 0.3 % 0-1 [facility] CBC W/Diff, Automatedon 05-28 Absolute Lymph 1.08 X10 3/uL Normal 0.83-4.51 [facility] Comment on above: Performed By: #### L 501.9520, L100.0100, L3890.6102, L506.0400, L509.4006, L3890.6006, L509.8002, BTS, L3410.9998, L3890.6301 #### [facility] [address] [place], [address] Absolute Neut 12.0 X10 3/uL High 2.0-7.7 [facility] Comment on above: Performed By: #### L 501.9520, L100.0100, L3890.6102, L506.0400, L509.4006, L3890.6006, L509.8002, BTS, L3410.9998, L3890.6301 #### [facility] [address] [place], [address] Basophils/100 WBC (Bld) 0.3 % Normal 0-1 [facility] Comment on above: Performed By: #### L 501.9520, L100.0100, L3890.6102, L506.0400, L509.4006, L3890.6006, L509.8002, BTS, L3410.9998, L3890.6301 #### [facility] [address] [place], [address] Eosinophils/100 WBC (Bld) 0.4 % Normal 0-5 [facility] Comment on above: Performed By: #### L 501.9520, L100.0100, L3890.6102, L506.0400, L509.4006, L3890.6006, L509.8002, BTS, L3410.9998, L3890.6301 #### [facility] [address] [place], [address] Erythrocyte distribution width (RBC) [Ratio] 13.8 % Normal 11.6-14.6 [facility] Comment on above: Performed By: #### L 501.9520, L100.0100, L3890.6102, L506.0400, L509.4006, L3890.6006, L509.8002, BTS, L3410.9998, L3890.6301 #### [facility] [address] [place], [address] Hematocrit (Bld) [Volume fraction] 38.1 % Normal 37-47 [facility] Comment on above: Performed By: #### L 501.9520, L100.0100, L3890.6102, L506.0400, L509.4006, L3890.6006, L509.8002, BTS, L3410.9998, L3890.6301 #### [facility] [address] [place], [address] Hemoglobin (Bld) [Mass/Vol] 12.8 g/dL Normal 12.0-15.0 [facility] Comment on above: Performed By: #### L 501.9520, L100.0100, L3890.6102, L506.0400, L509.4006, L3890.6006, L509.8002, BTS, L3410.9998, L3890.6301 #### [facility] [address] [place], [address] IG% 0.400 Normal 0.0-0.9 [facility] Comment on above: Result Comment: IG% - Immature Granulocytes (promyelocytes, myelocytes and metamyelocytes) > 1% indicates that a LEFT SHIFT is Present. Performed By: #### L 501.9520, L100.0100, L3890.6102, L506.0400, L509.4006, L3890.6006, L509.8002, BTS, L3410.9998, L3890.6301 #### [facility] [address] [place], [address] Lymphocytes/100 WBC (Bld) 7.7 % Low 19-41 [facility] Comment on above: Performed By: #### L 501.9520, L100.0100, L3890.6102, L506.0400, L509.4006, L3890.6006, L509.8002, BTS, L3410.9998, L3890.6301 #### [facility] [address] [place], [address] MCH (RBC) [Entitic mass] 29.2 pg Normal 27.0-32.0 [facility] Comment on above: Performed By: #### L 501.9520, L100.0100, L3890.6102, L506.0400, L509.4006, L3890.6006, L509.8002, BTS, L3410.9998, L3890.6301 #### [facility] [address] [place], [address] MCHC (RBC) [Mass/Vol] 33.6 g/dL Normal 32-36 [facility] Comment on above: Performed By: #### L 501.9520, L100.0100, L3890.6102, L506.0400, L509.4006, L3890.6006, L509.8002, BTS, L3410.9998, L3890.6301 #### [facility] [address] [place], [address] MCV (RBC) [Entitic vol] 86.8 fL Normal 81-99 [facility] Comment on above: Performed By: #### L 501.9520, L100.0100, L3890.6102, L506.0400, L509.4006, L3890.6006, L509.8002, BTS, L3410.9998, L3890.6301 #### [facility] [address] [place], [address] Monocytes/100 WBC (Bld) 5.3 % Normal 0-10 [facility] Comment on above: Performed By: #### L 501.9520, L100.0100, L3890.6102, L506.0400, L509.4006, L3890.6006, L509.8002, BTS, L3410.9998, L3890.6301 #### [facility] [address] [place], [address] Neutrophils/100 WBC (Bld) 85.9 % High 47-70 [facility] Comment on above: Performed By: #### L 501.9520, L100.0100, L3890.6102, L506.0400, L509.4006, L3890.6006, L509.8002, BTS, L3410.9998, L3890.6301 #### [facility] [address] [place], [address] Nucleated RBC (Bld) [#/Vol] 0 10*3/uL Normal 0-5 [facility] Comment on above: Performed By: #### L 501.9520, L100.0100, L3890.6102, L506.0400, L509.4006, L3890.6006, L509.8002, BTS, L3410.9998, L3890.6301 #### [facility] [address] [place], [address] Platelet mean volume (Bld) [Entitic vol] 11.2 fL Normal 6.2-12.0 [facility] Comment on above: Performed By: #### L 501.9520, L100.0100, L3890.6102, L506.0400, L509.4006, L3890.6006, L509.8002, BTS, L3410.9998, L3890.6301 #### [facility] [address] [place], [address] Platelets (Bld) [#/Vol] 215 10*3/uL Normal 150-450 [facility] Comment on above: Performed By: #### L 501.9520, L100.0100, L3890.6102, L506.0400, L509.4006, L3890.6006, L509.8002, BTS, L3410.9998, L3890.6301 #### [facility] [address] [place], [address] RBC (Bld) [#/Vol] 4.39 10*6/uL Normal 4.2-5.4 [facility] Comment on above: Performed By: #### L 501.9520, L100.0100, L3890.6102, L506.0400, L509.4006, L3890.6006, L509.8002, BTS, L3410.9998, L3890.6301 #### [facility] [address] [place], [address] RDW SD 43.3 fl Normal 35.1-43.9 [facility] Comment on above: Performed By: #### L 501.9520, L100.0100, L3890.6102, L506.0400, L509.4006, L3890.6006, L509.8002, BTS, L3410.9998, L3890.6301 #### [facility] [address] [place], [address] WBC (Bld) [#/Vol] 14.0 10*3/uL High 4.4-11.0 [facility] Comment on above: Performed By: #### L 501.9520, L100.0100, L3890.6102, L506.0400, L509.4006, L3890.6006, L509.8002, BTS, L3410.9998, L3890.6301 #### [facility] [address] [place], [place], [address] Eosinophil percentageOrdered By: America Dudley on 06-13-2024 Eosinophils/100 WBC (Bld) 0.4 % 0-5 [facility] Erythrocyte distribution wid th (RBC) [Ratio]Ordered By: America Dudley on 06-13-2024 Erythrocyte distribution width (RBC) [Entitic vol] 43.3 fL 35.1-43.9 [facility] Erythrocyte distribution wid th ratioOrdered By: America Dudley on 06-13-2024 Erythrocyte distribution width (RBC) [Ratio] 13.8 % 11.6-14.6 [facility] Erythrocyte distribution wid th standard deviationOrdered By: America Dudley on 06-13-2024 Erythrocyte distribution width (RBC) [Ratio] 43.3 fl 35.1-43.9 [facility] HBV surface Ag Ql (S)Ordered By: America Dudley on 06-13-2024 Hepatitis B Surface Antigen Non-Reactive Nonreactive [facility] Comment on above: Reactive: Presumptiv e evidence of HBV. Repeatedly reactive samples must be confirmed using a neutralization test ([employer] HBsAg Confirmatory Test)Non-Reactive: HBsAg not detected; does not exclude the possibility of exposure to HBV HIVon 06-13-2024 HIV Non-Reactive Normal Nonreactive [facility] Comment on above: Result Comment: Non- Reactive Reactive Repeatedly reactive samples must be confirmed according to CDC recommended confirmatory algorithms. The subresults for either HIVAG or AHIV can be used as an aid in the selection of the confirmation algorithm for reactive samples. Send out specimens with Reactive results to [facility] for confirmation. Order the HIV antibody detection and differentiation: lc#[id number] Performed By: #### L 501.9520, L506.0400, L100.0100, L506.1000, L503.6030, L503.6550 #### [facility] [address] [place], [address] Hematocrit Auto (Bld) [Volum e fraction]Ordered By: America Dudley on 06-13-2024 Hematocrit (Bld) [Volume fraction] 38.1 % 37-47 [facility] Hemoglobin measurementOrdere d By: America Dudley on 06-13-2024 Hemoglobin (Bld) [Mass/Vol] 12.8 g/dL 12.0-15.0 [facility] Hepatitis C Antibodyon 06-13 Hepatitis C Ab Non-Reactive Normal Nonreactive [facility] Comment on above: Result Comment: Reac tive: Presumptive evidence of antibodies to HCV. Follow CDC recommendations for supplemental testing. Non-Reactive: Antibodies to HCV were not detected; does not exclude the possibility of exposure to HCV Reactive Results are presumptive evidence of antibodies to HCV. Follow CDC recommendations for supplemental testing. Order confirmation testing: HCV Quant by PCR testing - HCVPCR lc#[id number] Non Reactive: < 0.8 Equivocal: >/= 0.8 to < 1.0 Reactive: >/= 1.0 The CDC requires that a reactive/equivocal HCV antibody result be sent out for confirmation. HCV Quant by PCR testing. Performed By: #### L 501.9520, L506.0400, L100.0100, L506.1000, L503.6030, L503.6550 #### [facility] [address] [place], [place], [address] Hepatitis C antibodyOrdered By: America Dudley on 06-13-2024 Hepatitis C Antibody Non-Reactive Nonreactive [facility] Comment on above: Reactive: Presumptiv e evidence of antibodies to HCV. Follow CDC recommendations for supplemental testing.Non-Reactive: Antibodies to HCV were not detected; does not exclude the possibility of exposure to HCVReactive Results are presumptive evidence of antibodies to HCV. Follow CDC recommendations for supplemental testing.Order confirmation testing: HCV Quant by PCR testing - HCVPCR lc#[id number] Non Reactive: < 0.8 Equivocal: >/= 0.8 to < 1.0 Reactive: >/= 1.0The CDC requires that a reactive/equivocal HCV antibody result be sent out for confirmation. HCV Quant by PCR testing. Immature granulocytes/100 WB C Auto (Bld)Ordered By: America Dudley on 06-13-2024 Immature granulocytes/100 WBC (Bld) 0.400 % 0.0-0.9 [facility] Comment on above: IG% - Immature Granu locytes (promyelocytes, myelocytes and metamyelocytes) > 1% indicates that a LEFT SHIFT is Present. L3890.6102on 06-13-2024 HEP B Surf Ag Non-Reactive Normal Nonreactive [facility] Comment on above: Result Comment: Reac tive: Presumptive evidence of HBV. Repeatedly reactive samples must be confirmed using a neutralization test (Elecsys HBsAg Confirmatory Test) Non-Reactive: HBsAg not detected; does not exclude the possibility of exposure to HBV Performed By: #### L 501.9520, L506.0400, L100.0100, L506.1000, L503.6030, L503.6550 #### [facility] Laboratory [address] [place], [place], [address] L509.4006on 06-13-2024 Rubella IgG REAC Normal Nonreactive [facility] Comment on above: Result Comment: Anti body Result: Interpretation Non-Reactive: Non-Immune Reactive: Immune The following results were obtained with the Elecsys Rubella IgG assay. Results from assays of other manufacturers cannot be used interchangeably. Performed By: #### L 501.9520, L506.0400, L100.0100, L506.1000, L503.6030, L503.6550 #### [facility] Laboratory [address] [place], [place], [address] Laboratory - Microbiology an d Antimicrobial susceptibilityOrdered By: America Dudley on 06-13-2024 HBV surface Ag Ql (S) Non-Reactive Nonreactive [facility] Comment on above: Reactive: Presumptiv e evidence of HBV. Repeatedly reactive samples must be confirmed using a neutralization test (Elecsys HBsAg Confirmatory Test)Non-Reactive: HBsAg not detected; does not exclude the possibility of exposure to HBV Lymphocytes Auto (Unsp spec) [#/Vol]Ordered By: America Dudley on 06-13-2024 Lymphocytes (Bld) [#/Vol] 1.08 10*3/uL 0.83-4.5 1 [facility] Lymphocytes/100 WBC Auto (Un sp spec)Ordered By: America Dudley on 06-13-2024 Lymphocytes/100 WBC (Bld) 7.7 % Low 19-41 [facility] MCV (mean corpuscular volume ) determinationOrdered By: America Dudley on 06-13-2024 MCV (RBC) [Entitic vol] 86.8 fL 81-99 [facility] Mean corpuscular hemoglobin (MCH) determinationOrdered By: America Dudley on 06-13-2024 MCH (RBC) [Entitic mass] 29.2 pg 27.0-32.0 [facility] Mean corpuscular hemoglobin concentration (MCHC) determinationOrdered By: America Dudley on 06-13-2024 MCHC (RBC) [Mass/Vol] 33.6 g/dL 32-36 [facility] Mean platelet volume determi nationOrdered By: America Dudley on 06-13-2024 Platelet mean volume (Bld) [Entitic vol] 11.2 fL 6.2-12.0 [facility] Miscellaneous procedureOrder ed By: America Dudley on 06-13-2024 Miscellaneous Test Comment SEE SCANNED REPORT [facility] Monocyte percentageOrdered B y: America Dudley on 06-13-2024 Monocytes/100 WBC (Bld) 5.3 % 0-10 [facility] NATERAon 06-13-2024 NATURA SEE SCANNED REPORT Normal [facility] Comment on above: Performed By: #### L 501.9520, L506.0400, L100.0100, L506.1000, L503.6030, L503.6550 #### [facility] Laboratory [address] [place] [address]. [place], [place], [address] Neutrophil percentageOrdered By: America Dudley on 06-13-2024 Neutrophils/100 WBC (Bld) 85.9 % High 47-70 [facility] No Panel InformationOrdered By: America Dudley on 06-13-2024 HIV (1&2) Antibody Non-Reactive Nonreactive [facility] Comment on above: Non-ReactiveReactive Repeatedly reactive samples must be confirmed according to CDC recommended confirmatory algorithms. The subresults for either HIVAG or AHIV can be used as an aid in the selection of the confirmation algorithm for reactive samples.Send out specimens with Reactive results to [facility] for confirmation.Order the HIV antibody detection and differentiation: #[id number] Nucleated red blood cell per centageOrdered By: America Dudley on 06-13-2024 Nucleated RBC/100 WBC (Bld) [Ratio] 0 % 0-5 [facility] Platelet countOrdered By: Zbigniew Dudley on 06-13-2024 Platelets (Bld) [#/Vol] 215 10*3/uL 150-450 [facility] RBC Auto (Bld) [#/Vol]Ordere d By: America Dudley on 06-13-2024 RBC (Bld) [#/Vol] 4.39 10*6/uL 4.2-5.4 [facility] Rubella immune status determ ination by IgG antibody assayOrdered By: America Dudley on 06-13-2024 Rubella IgG Antibody REAC Nonreactive [facility] Comment on above: Antibody Result: Int erpretationNon-Reactive: Non-ImmuneReactive: ImmuneThe following results were obtained with the [employer]ys Rubella IgG assay. Results from assays of other manufacturers cannot be used interchangeably. Syphilis Antibodieson 2024 Syphilis Abs Non-Reactive Normal Nonreactive [facility] Comment on above: Performed By: #### L 501.9520, L506.0400, L100.0100, L506.1000, L503.6030, L503.6550 #### [facility] Laboratory [address] [place], [place], [address] T. pallidum abOrdered By: Zbigniew Dudley on 06-13-2024 Syphilis Total Antibody Non-Reactive Nonreactiv e [facility] T4 Free Directon 06-13-2024 T4 FREE DIRECT 1.90 ng/dL High 0.76-1.46 [facility] Comment on above: Order Comment: TSH R AB [id number] Performed By: #### L 501.9520, L506.0400, L100.0100, L506.1000, L503.6030, L503.6550 #### [facility] Laboratory [address] [place], [place], [address] T4 freeOrdered By: America perez on 04-17-2025 Free T4 [Mass/Vol] 1.90 ng/dL High 0.76-1.46 [facility] TSH DL <= 0.005 mIU/L QnOrde red By: America Dudley on 06-13-2024 Thyroid Stimulating Hormone (TSH) 0.025 uIU/mL Low 0.300-4.200 [facility] TSH Qn 0.025 uIU/mL Low 0.300-4.200 [facility] Thyroid Stim Hormone (TSH)on 06-13-2024 TSH 0.025 uIU/mL Low 0.300-4.200 [facility] Comment on above: Performed By: #### L 501.9520, L100.0100, L3890.6102, L506.0400, L509.4006, L3890.6006, L509.8002, BTS, L3410.9998, L3890.6301 #### [facility] Laboratory [address] [place], [place], [id number] Type AND Screenon 06-13-2024 Ab SCREEN GEL Negative Normal [facility] Comment on above: Order Comment: PN Performed By: #### L 501.9520, L100.0100, L3890.6102, L506.0400, L509.4006, L3890.6006, L509.8002, BTS, L3410.9998, L3890.6301 #### [facility] Laboratory [address] [place], [place], [address] White blood cell (WBC) count Ordered By: America Dudley on 06-13-2024 WBC (Bld) [#/Vol] 14.0 10*3/uL High 4.4-11.0 [facility] Chlamydia/GC DILCIA aptimaon CHLAMY,NUC ACID Negative Normal Negative [facility] Comment on above: Performed By: #### L 501.9520, L506.0400, L100.0100, L506.1000, L503.6030, L503.6550 #### [facility] Laboratory [address] [place], [place], [address] GC BY NUC ACID Negative Normal Negative [facility] Comment on above: Result Comment: Perf ormed at: =G - [facility] [address] [place], [place] [id number] Subeditor: Keri Santa MD, Phone: [phone] Performed By: #### L 501.9520, L506.0400, L100.0100, L506.1000, L503.6030, L503.6550 #### [facility] Laboratory [address] [place], [place], [address] Urine Cultureon 05-31-2024 URC Culture exhibits no growth. Normal [facility] Comment on above: Performed By: #### L 501.9520, L506.0400, L100.0100, L506.1000, L503.6030, L503.6550 #### [facility] Laboratory [address] [place], [address] C. trachomatis rRNA DILCIA+prob e Ql (Unsp spec)Ordered By: America Dudley on 05-30-2024 Chlamydia DNA (DILCIA) Negative Negative [facility] Chlamydia trachomatis rRNA d etection by probe and target amplification methodOrdered By: America Dudley on 05-30-2024 C. trachomatis rRNA DILCIA+probe Ql (Unsp spec) Negative Negative [facility] Neisseria gonorrhoeae nuclei c acid detection by amplified probe techniqueOrdered By: America Dudley on 05-30-2024 N. gonorrhoeae DNA DILCIA+probe Ql (Unsp spec) Negative Negative [facility] Comment on above: Performed at: =G - [facility] [address] [id number] Director: Keri Santa MD, Phone: [phone] [employer] Office Visit Reporton 05-30-2024 [employer] Office Visit Report [facility] [address], [address] [place] [address] OFFICE VISIT Date of Service: 05/30/24 MR#: [id number] Acct: [id number] Name: DAVIDVESTA M Rep #: [id number] : 1995 Provider: FRANDY Peterson ams Age/Sex: 28/F Location: [facility] Status: Signed Intake Vital Signs 04/15/24 09:05 05/30/24 13:01 Height 5 ft 6 in 5 ft 6 in Weight: 163 lb 4 oz BMI 26.3 BP 128/81 H Intake Visit Reasons: NOB LMP 03/24 Chief Complaint: New OB Senior Escrow Officer Required: No Is patient in pain?: No Allergies No Known Allergies Allergy (Verified 05/30/24 13:04) Medications ???Medication ???Instructions ???Recorded ???Confirmed ???Type levothyroxine 112 mcg capsule 112 mcg PO QDAY #30 caps 04/15/24 05/30/24 Rx plxmnqun-anf-esrhz 120 mcg-dha 25 tab PO 05/30/24 05/30/24 History mg-herb no.293 66.7 mg chew tablet (Alive Premium ) Last Menstrual Period: 03/24/24 : No PFSH PFSH Medical History Missed Kidney stone Alcohol use Low iron Migraine headache Blackout History of echocardiogram (spontaneous vaginal delivery) Surgical History H/O dilation and curettage History of cystoscopy S/P foot surgery, right History of laparoscopic appendectomy ( 07/19/19) Family History Father Cancer, Onset Age: 57 Prostate ca Hypertension Grandfather Cancer, Onset Age: 70 Maternal Prostate Cancer Grandmother COPD (chronic obstructive pulmonary disease) Maternal Mother Hypertension Sister Fatty liver due to alcoholism Unknown Thyroid disorder Aunt Thyroid disorder Social History adopted: No household members: significant other and children housing: house number of children: 4 service: No current occupational status: unemployed current occupation: [employer] pets and animals: No history of recent travel: No sexually active: Yes Smoking Status: Never smoker alcohol intake: former details: quit back in 2019 substance use type: does not use well-balanced diet: daily or most days caffeine: Yes Type: tea eating out: 1-3 times/week during the past year weight has: remained stable what type of physical activity do you participate in: walking frequency: 5-6 times per week duration: 30-45 minutes/day andie/congregational: None seatbelt use: always do you feel safe at home: Yes additional 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 Date Name GA/Weeks Outcome Route Bth Weight Infant Gen Labor Lgth Anesthesia Del Locatn Provider FOB 03/23/14 Kamcjnn 40 live - full term 8#1oz Female epidural [facility] Paul 03/03/18 Christian 39 live - full term 8#13oz Male epidural [facility] Dr. Elio Hilario 10/06/19 Kynzie 38 live - full term 6#3oz Female epidural [facility] Richie Hilario 05/23/21 Neville 38 live - full term 8#5oz Male epidural [facility] Oswaldo Hilario 10/16/23 D C HPI NOB LMP 03/24 Details: VESTA HERNANDEZ is a 28 year old who presents for New OB visit. OB Visit CODY Calculator Estimated Delivery Date Method Current WG Current Estimate 12/29/24 LMP (Certain) 9w 4d Other Estimates 12/26/24 Ultrasound #1 10w 0d Comments: HIV: Urine Culture: Sequential Screen: NIPT Screen: Estimated Due Date: 12/29/24 Expected Delivery Route/Plan Labor Preferences- CB/BF classes: [] labor support person: [] labor intervention preferences: [] pain management options preferred: [] cut cord/dad catch: [] : [] PP control planned: [] discussed possible routes of delivery and associated risks: [] special requests: [] Specific Issue/Plans Covid status: [] Flu vaccine: [] Tdap vaccine: [] Rhogam: [] LARC form signed: [] Problem list reviewed and updated with the most current plan of care details and appropriate orders placed. Relevant counseling for the gestational age provided. Continue routine care and follow up unless otherwise noted in visit notes/problem list details Initial Weight: 163 lb Date -???-???-???-???-?? ?-???-???-???-???-? ??-???-???- EGA Weight BP Urine Prot -???-???-???-???-?? ?-???-???-???-???-? ??-???-???- Glucose FHR FuHt Pres Dilation -???-???-???-???-?? ?-???-???-???-???-? ??-???-???- Effaced St Visit Note 05/30/24 -???-???-???-? (more content not included)... Normal [facility] Urine cultureOrdered By: Mahesh Dudley on 05-30-2024 Bacteria identified Cx Nom (U) Culture exhibits no growth. [facility] CNOVon 05-27-2024 CNOV Office Visit ([facility]) ---- VESTA HERNANDEZ ([id number]) 1995 F Date Time Provider Department 05/27/24 4:45 PM SERG GR[employer] [facility] During your visit today, we recorded the following information about you: Temperature Pulse Respiration Blood pressure 97.9 degrees 93/minute 18/minute 104/71 Weight 74.8 kg Serg Grubbs, FOREST FIRE CONTROL OFFICER.SOLAR PHOTOVOLTAIC INSTALLER 05/27/2024 5:29 PM [address] [address] Dept: [phone] Dept Subjective Subjective Vesta Hernandez is a 28 year old female who [...] Negative for myalgias. Neurological: Negative for headaches. Endo/Heme/Allergies : Negative for environmental allergies. ALLERGIES No Known Allergies Current Outpatient Medications on File Prior to Visit Medication Sig levothyroxine (SYNTHROID) 112 mcg tablet Take 1 tablet by mouth once daily. [id number] tyler-epa-fish ( MULTI-DHA,WITH VIT K,) 27 mg iron-800 mcg-260 mg Take by mouth. methylPREDNISolone (MEDROL, PRICILLA,) 4 mg Dose-Pack Take by mouth per package instructions (Patient not taking: Reported on 05/27/2024) B cmplx 4/vit D3/C/folic/zinc (VITAL-D RX ORAL) Take by mouth. (Patient not taking: Reported on 05/27/2024) No current facility-administer ed medications on file prior to visit. There [...] H66.92 - AMOXICILLIN 875 MG TABLET Serg Grubbs APRN.SOLAR PHOTOVOLTAIC INSTALLER Differential Diagnoses - Left dysphagia is more [...] was used to dictate this note. Serg Grubbs APRN-DEMONSTRATOR KNITTING 05/27/2024 5:11 PM Serg Grubbs APRN.SOLAR PHOTOVOLTAIC INSTALLER 05/27/2024 5:13 PM Signed [facility] [...] as prescribed. Do not stop the medicine (more content not included)... Normal [facility] Thyroidon 04-19-2024 Thyroid [facility] Imaging Services [address] [place], [place] [id number] Thyroid MR#: [id number] Acct: [id number] Name: VESTA HERNANDEZ Rep #: [id number] : 1995 F 28 From: Adrian Sanz MD PCP: Dr. Mary Nunn MD Status: REG CLI Study: Thyroid Date of Exam: 04/19/24 Exam# [id number] Ordering Dr: Mary Nunn MD PROCEDURE: ULTRASOUND THYROID REASON FOR EXAM: Enlarged thyroid. TECHNIQUE: Real-time grayscale and color-flow imaging was performed along with routine image documentation. COMPARISON: None. FINDINGS: Right thyroid lobe measures 5.7 x 1.7 x 1.3 cm.. Left thyroid lobe measures 5.5 x 2.0 x 1.4 cm.. Isthmus thickness is0.19 cm.. Thyroid Size: Normal Background Echotexture: Homogeneous Thyroid Nodules: None US/Thyroid IMPRESSION: NORMAL THYROID ULTRASOUND [facility] Dr. Mary Nunn MD Dispatcher Relay: Signed Normal [facility] 26-FK-Yespcji DOrdered By: Jeremy Nunn on 04-15-2024 Vitamin D 25-Hydroxy 16.9 ng/mL [facility] Comment on above: Vitamin D 25(OH) Sta tus Range Deficiency <20 ng/mL (50nmol/L) Insufficiency 20 - 30 ng/mL (50 - 75 nmol/L) Sufficiency 30 - 100 ng/mL (75 - 250 nmol/L) Toxicity >100 ng/mL (>250 nmol/L) Absolute lymphocyte countOrd ered By: Mary Nunn on 04-15-2024 Lymphocytes Auto (Unsp spec) [#/Vol] 1.35 10*3/uL 0.83-4.51 [facility] Absolute neutrophil countOrd ered By: Mary Nunn on 04-15-2024 Neutrophils (Bld) [#/Vol] 3.9 10*3/uL 2.0-7.7 [facility] Automated lymphocyte count a s percentage of total leukocytesOrdered By: Mary Nunn on 04-15-2024 Lymphocytes/100 WBC Auto (Unsp spec) 23.0 % 19-41 [facility] Basophil percentageOrdered B y: Mary Nunn on 04-15-2024 Basophils/100 WBC (Bld) 0.5 % 0-1 [facility] CBC W/Diff, Automatedon 03-30 Absolute Lymph 1.35 X10 3/uL Normal 0.83-4.51 [facility] Comment on above: Performed By: #### L 501.9520, L506.0400, L100.0100, L506.1000, L503.6030, L503.6550 #### [facility] Laboratory [address] [place], [address] Absolute Neut 3.9 X10 3/uL Normal 2.0-7.7 [facility] Comment on above: Performed By: #### L 501.9520, L506.0400, L100.0100, L506.1000, L503.6030, L503.6550 #### [facility] Laboratory [address] [place], [address] Basophils/100 WBC (Bld) 0.5 % Normal 0-1 [facility] Comment on above: Performed By: #### L 501.9520, L506.0400, L100.0100, L506.1000, L503.6030, L503.6550 #### [facility] Laboratory [address] [place], [address] Eosinophils/100 WBC (Bld) 1.0 % Normal 0-5 [facility] Comment on above: Performed By: #### L 501.9520, L506.0400, L100.0100, L506.1000, L503.6030, L503.6550 #### [facility] Laboratory [address] [place], [address] Erythrocyte distribution width (RBC) [Ratio] 12.9 % Normal 11.6-14.6 [facility] Comment on above: Performed By: #### L 501.9520, L506.0400, L100.0100, L506.1000, L503.6030, L503.6550 #### [facility] Laboratory [address] [place], [address] Hematocrit (Bld) [Volume fraction] 38.7 % Normal 37-47 [facility] Comment on above: Performed By: #### L 501.9520, L506.0400, L100.0100, L506.1000, L503.6030, L503.6550 #### [facility] Laboratory [address] [place], [address] Hemoglobin (Bld) [Mass/Vol] 12.1 g/dL Normal 12.0-15.0 [facility] Comment on above: Performed By: #### L 501.9520, L506.0400, L100.0100, L506.1000, L503.6030, L503.6550 #### [facility] Laboratory [address] [place], [address] IG% 0.200 Normal 0.0-0.9 [facility] Comment on above: Result Comment: IG% - Immature Granulocytes (promyelocytes, myelocytes and metamyelocytes) > 1% indicates that a LEFT SHIFT is Present. Performed By: #### L 501.9520, L506.0400, L100.0100, L506.1000, L503.6030, L503.6550 #### [facility] Laboratory [address] [place], [address] Lymphocytes/100 WBC (Bld) 23.0 % Normal 19-41 [facility] Comment on above: Performed By: #### L 501.9520, L506.0400, L100.0100, L506.1000, L503.6030, L503.6550 #### [facility] Laboratory [address] [place], [address] MCH (RBC) [Entitic mass] 27.6 pg Normal 27.0-32.0 [facility] Comment on above: Performed By: #### L 501.9520, L506.0400, L100.0100, L506.1000, L503.6030, L503.6550 #### [facility] Laboratory [address] [place], [address] MCHC (RBC) [Mass/Vol] 31.3 g/dL Low 32-36 [facility] Comment on above: Performed By: #### L 501.9520, L506.0400, L100.0100, L506.1000, L503.6030, L503.6550 #### [facility] Laboratory [address] [place], [address] MCV (RBC) [Entitic vol] 88.4 fL Normal 81-99 [facility] Comment on above: Performed By: #### L 501.9520, L506.0400, L100.0100, L506.1000, L503.6030, L503.6550 #### [facility] Laboratory [address] [place], [address] Monocytes/100 WBC (Bld) 9.6 % Normal 0-10 [facility] Comment on above: Performed By: #### L 501.9520, L506.0400, L100.0100, L506.1000, L503.6030, L503.6550 #### [facility] Laboratory [address] [place], [address] Neutrophils/100 WBC (Bld) 65.7 % Normal 47-70 [facility] Comment on above: Performed By: #### L 501.9520, L506.0400, L100.0100, L506.1000, L503.6030, L503.6550 #### [facility] Laboratory [address] [place], [address] Nucleated RBC (Bld) [#/Vol] 0 10*3/uL Normal 0-5 [facility] Comment on above: Performed By: #### L 501.9520, L506.0400, L100.0100, L506.1000, L503.6030, L503.6550 #### [facility] Laboratory [address] [place], [address] Platelet mean volume (Bld) [Entitic vol] 11.5 fL Normal 6.2-12.0 [facility] Comment on above: Performed By: #### L 501.9520, L506.0400, L100.0100, L506.1000, L503.6030, L503.6550 #### [facility] Laboratory [address] [place], [address] Platelets (Bld) [#/Vol] 198 10*3/uL Normal 150-450 [facility] Comment on above: Performed By: #### L 501.9520, L506.0400, L100.0100, L506.1000, L503.6030, L503.6550 #### [facility] Laboratory [address] [place], [address] RBC (Bld) [#/Vol] 4.38 10*6/uL Normal 4.2-5.4 [facility] Comment on above: Performed By: #### L 501.9520, L506.0400, L100.0100, L506.1000, L503.6030, L503.6550 #### [facility] Laboratory [address] [place], [address] RDW SD 41.9 fl Normal 35.1-43.9 [facility] Comment on above: Performed By: #### L 501.9520, L506.0400, L100.0100, L506.1000, L503.6030, L503.6550 #### [facility] Laboratory [address] [place], [address] WBC (Bld) [#/Vol] 5.9 10*3/uL Normal 4.4-11.0 [facility] Comment on above: Performed By: #### L 501.9520, L506.0400, L100.0100, L506.1000, L503.6030, L503.6550 #### [facility] Laboratory [address] [place], [address] Direct serum free thyroxine (FT4) measurementOrdered By: Mary Nunn on 04-15-2024 Free T4 [Mass/Vol] 0.92 ng/dL 0.76-1.46 [facility] Eosinophil percentageOrdered By: Mary Nunn on 04-15-2024 Eosinophils/100 WBC (Bld) 1.0 % 0-5 [facility] Erythrocyte distribution wid th (RBC) [Ratio]Ordered By: Mary Nunn on 04-15-2024 Erythrocyte distribution width (RBC) [Entitic vol] 41.9 fL 35.1-43.9 [facility] Erythrocyte distribution wid th ratioOrdered By: Mary Nunn on 04-15-2024 Erythrocyte distribution width (RBC) [Ratio] 12.9 % 11.6-14.6 [facility] Erythrocyte distribution wid th standard deviationOrdered By: Mary Nunn on 04-15-2024 Erythrocyte distribution width (RBC) [Ratio] 41.9 fl 35.1-43.9 [facility] Ferritinon 04-15-2024 Ferritin [Mass/Vol] 5 ng/mL Low 8-252 [facility] Comment on above: Performed By: #### L 501.9520, L506.0400, L100.0100, L506.1000, L503.6030, L503.6550 #### [facility] Laboratory [address] [place], [address] Ferritin measurementOrdered By: Mary Nunn on 04-15-2024 Ferritin [Mass/Vol] 5 ng/mL Low 8-252 [facility] Hematocrit Auto (Bld) [Volum e fraction]Ordered By: Mary Nunn on 04-15-2024 Hematocrit (Bld) [Volume fraction] 38.7 % 37-47 [facility] Hemoglobin measurementOrdere d By: Mary Nunn on 04-15-2024 Hemoglobin (Bld) [Mass/Vol] 12.1 g/dL 12.0-15.0 [facility] Immature granulocytes/100 WB C Auto (Bld)Ordered By: Mary Nunn on 04-15-2024 Immature granulocytes/100 WBC (Bld) 0.200 % 0.0-0.9 [facility] Comment on above: IG% - Immature Granu locytes (promyelocytes, myelocytes and metamyelocytes) > 1% indicates that a LEFT SHIFT is Present. Iron (Unsp spec) [Mass/Mass] Ordered By: Mary Nunn on 04-15-2024 Iron [Mass/Vol] 72 ug/dL 50-170 [facility] Iron measurement (mass/mass) Ordered By: Mary Nunn on 04-15-2024 Iron (Unsp spec) [Mass/Mass] 72 ug/dL 50-170 [facility] Iron saturation [Mass fracti on]Ordered By: Mary Nunn on 04-15-2024 Iron Saturation 17.2 % 15.0-55.0 [facility] Iron+Iron Binding Capacityon 04-15-2024 Iron [Mass/Vol] 72 ug/dL Normal 50-170 [facility] Comment on above: Performed By: #### L 501.9520, L506.0400, L100.0100, L506.1000, L503.6030, L503.6550 #### [facility] Laboratory [address] [place], [place], [id number] IRON SATURATION 17.2 Normal 15.0-55.0 [facility] Comment on above: Performed By: #### L 501.9520, L506.0400, L100.0100, L506.1000, L503.6030, L503.6550 #### [facility] Laboratory [address] [place], [place], [id number] (502 TIBC 419 ug/dL Normal 250-450 [facility] Comment on above: Performed By: #### L 501.9520, L506.0400, L100.0100, L506.1000, L503.6030, L503.6550 #### [facility] [place], [address] Lymphocytes Auto (Unsp spec) [#/Vol]Ordered By: Mary Nunn on 04-15-2024 Lymphocytes (Bld) [#/Vol] 1.35 10*3/uL 0.83-4.5 1 [facility] Lymphocytes/100 WBC Auto (Un sp spec)Ordered By: Mary Nunn on 04-15-2024 Lymphocytes/100 WBC (Bld) 23.0 % 19-41 [facility] MCV (mean corpuscular volume ) determinationOrdered By: Mary Nunn on 04-15-2024 MCV (RBC) [Entitic vol] 88.4 fL 81-99 [facility] Mean corpuscular hemoglobin (MCH) determinationOrdered By: Mary Nunn on 04-15-2024 MCH (RBC) [Entitic mass] 27.6 pg 27.0-32.0 [facility] Mean corpuscular hemoglobin concentration (MCHC) determinationOrdered By: Mary Nunn on 04-15-2024 MCHC (RBC) [Mass/Vol] 31.3 g/dL Low 32-36 [facility] Mean platelet volume determi nationOrdered By: Mary Nunn on 04-15-2024 Platelet mean volume (Bld) [Entitic vol] 11.5 fL 6.2-12.0 [facility] Monocyte percentageOrdered B y: Mary Nunn on 04-15-2024 Monocytes/100 WBC (Bld) 9.6 % 0-10 [facility] Neutrophil percentageOrdered By: Mary Nunn on 04-15-2024 Neutrophils/100 WBC (Bld) 65.7 % 47-70 [facility] Nucleated red blood cell per centageOrdered By: Mary Nunn on 04-15-2024 Nucleated RBC/100 WBC (Bld) [Ratio] 0 % 0-5 [facility] Platelet countOrdered By: Ubaldo Nunn on 04-15-2024 Platelets (Bld) [#/Vol] 198 10*3/uL 150-450 [facility] RBC Auto (Bld) [#/Vol]Ordere d By: Mary Nunn on 04-15-2024 RBC (Bld) [#/Vol] 4.38 10*6/uL 4.2-5.4 [facility] Serum or plasma iron saturat ion measurement (mass fraction)Ordered By: Mary Nunn on 04-15-2024 Iron saturation [Mass fraction] 17.2 % 15.0-55.0 [facility] Serum or plasma thyroid stim ulating hormone (TSH) measurement (units/volume)Ordered By: Mary Nunn on 04-15-2024 TSH Qn 9.600 uIU/mL High 0.358-3.740 [facility] T4 Free Directon 04-15-2024 T4 FREE DIRECT 0.92 ng/dL Normal 0.76-1.46 [facility] Comment on above: Performed By: #### L 501.9520, L506.0400, L100.0100, L506.1000, L503.6030, L503.6550 #### [facility] Laboratory [address] [place], [place], [id number] TIBCOrdered By: Mary rock on 04-15-2024 Total Iron Binding Capacity 419 ug/dL 250-450 [facility] TSH QnOrdered By: Mary partida on 04-15-2024 Thyroid Stimulating Hormone (TSH) 9.600 uIU/mL High 0.358-3.740 [facility] Thyroid Stim Hormone (TSH)on 04-15-2024 TSH 9.600 uIU/mL High 0.358-3.740 [facility] Comment on above: Performed By: #### L 501.9520, L506.0400, L100.0100, L506.1000, L503.6030, L503.6550 #### [facility] Laboratory [address] [place], [place], [address] Vitamin D,25 Hydroxyon 04-15 Vitamin D 25-OH 16.9 ng/mL Normal [facility] Comment on above: Result Comment: Radha min D 25(OH) Status Range Deficiency <20 ng/mL (50nmol/L) Insufficiency 20 - 30 ng/mL (50 - 75 nmol/L) Sufficiency 30 - 100 ng/mL (75 - 250 nmol/L) Toxicity >100 ng/mL (>250 nmol/L) Performed By: #### L 501.9520, L506.0400, L100.0100, L506.1000, L503.6030, L503.6550 #### [facility] Laboratory [address] [place], [address] White blood cell (WBC) count Ordered By: Mary Nunn on 04-15-2024 WBC (Bld) [#/Vol] 5.9 10*3/uL 4.4-11.0 [facility] Internal Medicine Office Vis iton 04-11-2024 Internal Medicine Office Visit [facility] [address] [place] [address] [place] [address] OFFICE VISIT Date of Service: 04/15/24 MR#: [id number] Acct: [id number] Name: VESTA HERNANDEZ Rep #: [id number] : 1995 Provider: Dr. Mary rock MD Age/Sex: 28/F Location: [facility] [place] Status: Signed Intake Vital Signs 03/29/24 03:04 04/15/24 09:05 Height 5 ft 6 in 5 ft 6 in Weight: 167 lb BMI 26.9 BP 124/74 H Blood Pressure Location Rt brachial Position Sitting Respiration 16 Pulse 93 Pulse Source Monitor Temp 98.2 F Temp Source Temporal Pulse Oximetry (%) 97 Oxygen Delivery Method room air Intake Visit Reasons: EST NEW PT - WC PT Senior Escrow Officer Required: No Accompanied by: Self Is patient in pain?: No Allergies No Known Allergies Allergy (Verified 04/15/24 09:00) Medications ???Medication ???Instructions ???Recorded ???Confirmed ???Type NK 03/29/24 04/15/24 History PFSH Medical History Missed Kidney stone Wears glasses Wears contact lenses Alcohol use Low iron Migraine headache Blackout Non-smoker History of echocardiogram (spontaneous vaginal delivery) Surgical History H/O dilation and curettage History of cystoscopy S/P foot surgery, right History of laparoscopic appendectomy ( 07/19/19) Family History (Updated 04/15/24 @ 09:[address] Mary Nunn MD) Father Cancer, Onset Age: 57 Prostate ca Hypertension Grandfather Cancer, Onset Age: 70 Maternal Prostate Cancer Grandmother COPD (chronic obstructive pulmonary disease) Maternal Mother Hypertension Sister Fatty liver due to alcoholism Unknown Thyroid disorder Aunt Thyroid disorder Social History (Updated 04/15/24 @ 09:[address] Mary Nunn MD) adopted: No household members: significant other and children number of children: 4 current occupational status: unemployed current occupation: [employer] pets and animals: No history of recent travel: No sexually active: Yes Smoking Status: Never smoker alcohol intake: current alcohol intake frequency: holidays/special occasions only substance use type: does not use well-balanced diet: daily or most days caffeine: Yes Type: carbonated beverages Number of servings: 1 eating out: 1-3 times/week during the past year weight has: remained stable what type of physical activity do you participate in: walking frequency: 5-6 times per week duration: 30-45 minutes/day andie/congregational: None seatbelt use: always do you feel safe at home: Yes additional 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: BF [employer] Female Reproductive History Menstrual Ab spontaneous: 1 HPI HPI Details: VESTA HERNANDEZ, is a 28 F who presents to the office today to establish care. She was seeing a provider in [place] (unknown name) and last saw them a couple of years ago. She is not due for any routine blood work. She is up to date on her screening. She doesn't want any immunizations. She doesn't smoke and doesn't take any medications. She reports she is eating healthy and staying active. The patient was found to have an abnormal TSH level through her OBGYN. On repeat it actually worsened. She was initially referred to endocrinology, but it was felt this could be managed by a primary care provider and she was referred here. The patient reports she has gained about 20 pounds since September. She reports she has also been having some fatigue but was attributing it to her low iron. She doesn't take an iron supplement. She has never been told she had low functioning thyroid in the past and has never been on any medications. The patient was seen in the ED a few weeks ago for flank pain. She was found to have a kidney stone and was placed on pain medications and referred to urology. She reports that she still needs to schedule with the urologist. She reports she did pass it, however, and denies any ongoing symptoms. Her hematuria has resolved. She notices that she gets them, on average, about every 5 years. ROS Const Constitutional: Positive for weight change (20 pound weight gain); No body ache, chills, excessive sweating, fatigue, fever(s), frequent falls, headache(s), night sweats, snoring, weakness, sleep problems or change in appetite Eyes Eyes: No blurry vision, change in vision, dry eyes, eye pain or Light sensitivity ENT ENT: No abnormal hearing, ear or mastoid pain, tinnitus, dizziness/vertigo, balance problems, nasal congestion, sinus pressure, sinus pain, headache(s), dry mouth, difficulty swallowing, neck pain or sore throat Resp Respiratory: No cough, chest congestion, shortness of breath, snoring or wheezing Cardio Cardiology: No chest pain at rest (more content not included)... Normal [facility] Abdomen/Pelvis without Conto n 03-29-2024 Abdomen/Pelvis without Cont [facility] Imaging Services [address] [place] [address] Abdomen/Pelvis without Cont MR#: [id number] Acct: [id number] Name: VESTA HERNANDEZ Rep #: [id number] : 1995 F 28 From: Adrian Sanz MD PCP: Care Physician,No Primary Status: REG ER Study: Abdomen/Pelvis without Cont Date of Exam: 03/01 03/23 Exam# [id number] Ordering Dr: Chas Ernst DO PROCEDURE: ABDOMEN/PELVIS WITHOUT CONT REASON FOR EXAM: Left flank pain. History of kidney stone. History of appendicitis. TECHNIQUE: Abdomen and pelvis CT with intravenous contrast. IV CONTRAST: Not given COMPARISON: Ultrasound dated 09/12/2023. FINDINGS: Lung bases: 2 calcified granulomas in the left lower lobe measuring 0.3 and 0.7 cm on axial image 29. Liver: Unremarkable. Gallbladder: Unremarkable. Spleen: Unremarkable. Pancreas: Unremarkable. Adrenals: Unremarkable. Kidneys: Multiple nonobstructing calcifications in the bilateral kidneys, largest on the left measuring 0.3 cm, axial image 59. Marked left hydro uretero nephrosis. A 5 mm urolith at the left ureterovesical junction, axial image 144. Bladder: Decompressed. Reproductive Organs: Unremarkable. Bowel: Unremarkable. Appendix: Postoperative findings related to appendectomy. Lymph nodes: No suspicious lymph node enlargement. Vasculature: Major vascular structures are unremarkable. Peritoneum / Retroperitoneum: No ascites. No free air. Bones: Unremarkable. CT/Abdomen/Pelvis without Cont IMPRESSION: Left obstructive uropathy by 0.5 cm urolith at the ureterovesical junction. Associated marked proximal hydroureteronephros is. Bilateral nonobstructing nephrolithiasis. Calcified granulomas in the left lower lobe. One or more dose reduction techniques were used (e.g., Automated exposure control, adjustment of the mA and/or kV according to patient size, use of iterative reconstruction technique). Reading Location: [facility] CC: Dr. Chas Ernst DO; No Primary Care Physician Dispatcher Relay: Signed Normal [facility] Absolute lymphocyte countOrd ered By: Chas Ernst on 03-29-2024 Lymphocytes Auto (Unsp spec) [#/Vol] 1.82 10*3/uL 0.83-4.51 [facility] Absolute neutrophil countOrd ered By: Chas Ernst on 03-29-2024 Neutrophils (Bld) [#/Vol] 3.9 10*3/uL 2.0-7.7 [facility] Albumin to globulin ratioOrd ered By: Chas Ernst on 03-29-2024 Albumin/Globulin [Mass ratio] 1.3 {ratio} 0.9-2.4 [facility] Automated lymphocyte count a s percentage of total leukocytesOrdered By: Chas Ernst on 03-29-2024 Lymphocytes/100 WBC Auto (Unsp spec) 28.5 % 19-41 [facility] Bacteria LM.HPF (Urine sed) [#/Area]Ordered By: Chas Ernst on 03-29-2024 Urine Bacteria RARE /hpf None Seen [facility] Basophil percentageOrdered B y: Chas Sujata on 03-29-2024 Basophils/100 WBC (Bld) 0.6 % 0-1 [facility] Beta HCG ( test) Ql Ordered By: Chas Ernst on 03-29-2024 Serum Test, Qualitative Negative [facility] Bilirubin Test strip Ql (U)O rdered By: Chas Ernst on 03-29-2024 Bilirubin Ql (U) Negative Negative [facility] Bilirubin, totalOrdered By: Chas Ernst on 03-29-2024 Bilirubin [Mass/Vol] 0.40 mg/dL 0.20-1.00 [facility] Comment on above: For patients on eltr ombopag therapy, use of Dimension [place] TBIL is not recommended. Blood urea nitrogen (BUN)/cr eatinine ratioOrdered By: Chas Ernst on 03-29-2024 Urea nitrogen/Creatinine [Mass ratio] 25.5 mg/mg High 10-20 [facility] CBC W/Diff, Automatedon 03-01 Absolute Lymph 1.82 X10 3/uL Normal 0.83-4.51 [facility] Comment on above: Performed By: #### L 501.9520, L506.0400, L100.0100, L506.1000, L503.6030, L503.6550 #### [facility] Laboratory [address] [place], [address] Absolute Neut 3.9 X10 3/uL Normal 2.0-7.7 [facility] Comment on above: Performed By: #### L 501.9520, L506.0400, L100.0100, L506.1000, L503.6030, L503.6550 #### [facility] Laboratory [address] [place], [address] Basophils/100 WBC (Bld) 0.6 % Normal 0-1 [facility] Comment on above: Performed By: #### L 501.9520, L506.0400, L100.0100, L506.1000, L503.6030, L503.6550 #### [facility] Laboratory [address] [place], [address] Eosinophils/100 WBC (Bld) 1.1 % Normal 0-5 [facility] Comment on above: Performed By: #### L 501.9520, L506.0400, L100.0100, L506.1000, L503.6030, L503.6550 #### [facility] Laboratory [address] [place], [address] Erythrocyte distribution width (RBC) [Ratio] 13.1 % Normal 11.6-14.6 [facility] Comment on above: Performed By: #### L 501.9520, L506.0400, L100.0100, L506.1000, L503.6030, L503.6550 #### [facility] Laboratory [address] [place], [address] Hematocrit (Bld) [Volume fraction] 35.7 % Low 37-47 [facility] Comment on above: Performed By: #### L 501.9520, L506.0400, L100.0100, L506.1000, L503.6030, L503.6550 #### [facility] Laboratory [address] [place], [address] Hemoglobin (Bld) [Mass/Vol] 11.9 g/dL Low 12.0-15.0 [facility] Comment on above: Performed By: #### L 501.9520, L506.0400, L100.0100, L506.1000, L503.6030, L503.6550 #### [facility] [address] [place], [address] IG% 0.500 Normal 0.0-0.9 [facility] Comment on above: Result Comment: IG% - Immature Granulocytes (promyelocytes, myelocytes and metamyelocytes) > 1% indicates that a LEFT SHIFT is Present. Performed By: #### L 501.9520, L506.0400, L100.0100, L506.1000, L503.6030, L503.6550 #### [facility] [address] [place], [address] Lymphocytes/100 WBC (Bld) 28.5 % Normal 19-41 [facility] Comment on above: Performed By: #### L 501.9520, L506.0400, L100.0100, L506.1000, L503.6030, L503.6550 #### [facility] Laboratory [address] [place], [address] MCH (RBC) [Entitic mass] 28.7 pg Normal 27.0-32.0 [facility] Comment on above: Performed By: #### L 501.9520, L506.0400, L100.0100, L506.1000, L503.6030, L503.6550 #### [facility] [address] [place], [address] MCHC (RBC) [Mass/Vol] 33.3 g/dL Normal 32-36 [facility] Comment on above: Performed By: #### L 501.9520, L506.0400, L100.0100, L506.1000, L503.6030, L503.6550 #### [facility] [address] [place], [address] MCV (RBC) [Entitic vol] 86.0 fL Normal 81-99 [facility] Comment on above: Performed By: #### L 501.9520, L506.0400, L100.0100, L506.1000, L503.6030, L503.6550 #### [facility] [address] [place], [address] Monocytes/100 WBC (Bld) 7.7 % Normal 0-10 [facility] Comment on above: Performed By: #### L 501.9520, L506.0400, L100.0100, L506.1000, L503.6030, L503.6550 #### [facility] [address] [place], [address] Neutrophils/100 WBC (Bld) 61.6 % Normal 47-70 [facility] Comment on above: Performed By: #### L 501.9520, L506.0400, L100.0100, L506.1000, L503.6030, L503.6550 #### [facility] [address] [place], [address] Nucleated RBC (Bld) [#/Vol] 0 10*3/uL Normal 0-5 [facility] Comment on above: Performed By: #### L 501.9520, L506.0400, L100.0100, L506.1000, L503.6030, L503.6550 #### [facility] [address] [place], [address] Platelet mean volume (Bld) [Entitic vol] 10.8 fL Normal 6.2-12.0 [facility] Comment on above: Performed By: #### L 501.9520, L506.0400, L100.0100, L506.1000, L503.6030, L503.6550 #### [facility] Laboratory [address] [place], [address] Platelets (Bld) [#/Vol] 208 10*3/uL Normal 150-450 [facility] Comment on above: Performed By: #### L 501.9520, L506.0400, L100.0100, L506.1000, L503.6030, L503.6550 #### [facility] [address] [place], [address] RBC (Bld) [#/Vol] 4.15 10*6/uL Low 4.2-5.4 [facility] Comment on above: Performed By: #### L 501.9520, L506.0400, L100.0100, L506.1000, L503.6030, L503.6550 #### [facility] [address] [place], [address] RDW SD 40.8 fl Normal 35.1-43.9 [facility] Comment on above: Performed By: #### L 501.9520, L506.0400, L100.0100, L506.1000, L503.6030, L503.6550 #### [facility] [address] [place], [address] WBC (Bld) [#/Vol] 6.4 10*3/uL Normal 4.4-11.0 [facility] Comment on above: Performed By: #### L 501.9520, L506.0400, L100.0100, L506.1000, L503.6030, L503.6550 #### [facility] [address] [place], [address] Carbon dioxide measurementOr dered By: Chas Ernst on 03-29-2024 CO2 [Moles/Vol] 26.0 mmol/L 21.0-32.0 [facility] Chloride measurementOrdered By: Chas Ernst on 03-29-2024 Chloride [Moles/Vol] 105 mmol/L 98-107 [facility] Comprehensive Metabolic Prof ilon 03-29-2024 Albumin [Mass/Vol] 4.2 g/dL Normal 3.2-5.0 [facility] Comment on above: Performed By: #### L 501.9520, L506.0400, L100.0100, L506.1000, L503.6030, L503.6550 #### [facility] Laboratory [address] [place], [address] Albumin/Globulin [Mass ratio] 1.3 {ratio} Normal 0.9-2.4 [facility] Comment on above: Performed By: #### L 501.9520, L506.0400, L100.0100, L506.1000, L503.6030, L503.6550 #### [facility] [address] [place], [address] ALK P 41 U/L Low 45-117 [facility] Comment on above: Performed By: #### L 501.9520, L506.0400, L100.0100, L506.1000, L503.6030, L503.6550 #### [facility] [address] [place], [address] ALT [Catalytic activity/Vol] 17 U/L Normal 13-56 [facility] Comment on above: Performed By: #### L 501.9520, L506.0400, L100.0100, L506.1000, L503.6030, L503.6550 #### [facility] Laboratory [address] [place], [address] AST [Catalytic activity/Vol] 14 U/L Low 15-37 [facility] Comment on above: Performed By: #### L 501.9520, L506.0400, L100.0100, L506.1000, L503.6030, L503.6550 #### [facility] [address] [place], [address] Bilirubin [Mass/Vol] 0.40 mg/dL Normal 0.20-1.00 [facility] Comment on above: Result Comment: For patients on eltrombopag therapy, use of Dimension [place] TBIL is not recommended. Performed By: #### L 501.9520, L506.0400, L100.0100, L506.1000, L503.6030, L503.6550 #### [facility] Laboratory [address] [place], [address] BUN/CRE 25.5 RATIO High 10-20 [facility] Comment on above: Performed By: #### L 501.9520, L506.0400, L100.0100, L506.1000, L503.6030, L503.6550 #### [facility] Laboratory [address] [place], [address] CA,Total 8.7 mg/dL Normal 8.5-10.1 [facility] Comment on above: Performed By: #### L 501.9520, L506.0400, L100.0100, L506.1000, L503.6030, L503.6550 #### [facility] Laboratory [address] [place], [address] Chloride [Moles/Vol] 105 mmol/L Normal 98-107 [facility] Comment on above: Performed By: #### L 501.9520, L506.0400, L100.0100, L506.1000, L503.6030, L503.6550 #### [facility] Laboratory [address] [place], [address] CO2 [Moles/Vol] 26.0 mmol/L Normal 21.0-32.0 [facility] Comment on above: Performed By: #### L 501.9520, L506.0400, L100.0100, L506.1000, L503.6030, L503.6550 #### [facility] Laboratory [address] [place], [address] Creatinine [Mass/Vol] 0.78 mg/dL Normal 0.55-1.02 [facility] Comment on above: Result Comment: The validity of the calculated GFR GFRAA in patients over 70 years has not been determined. Clinical correlation is essential. Performed By: #### L 501.9520, L506.0400, L100.0100, L506.1000, L503.6030, L503.6550 #### [facility] [address] [place], [address] ECRCL 109.44 ml/min Normal [facility] Comment on above: Performed By: #### L [id number], L506.0400, L100.0100, L506.1000, L503.6030, L503.6550 #### [facility] [address] [place], [address] EST GFR - AA 111 mL/min Normal >60 [facility] Comment on above: Result Comment: Afri can Samoan GFR Calc Performed By: #### L [id number], L506.0400, L100.0100, L506.1000, L503.6030, L503.6550 #### [facility] [address] [place], [address] GAP 6 Normal 5-15 [facility] Comment on above: Performed By: #### L [id number], L506.0400, L100.0100, L506.1000, L503.6030, L503.6550 #### [facility] [address] [place], [address] GFR/1.73 sq M.predicted among non-blacks MDRD (S/P/Bld) [Vol rate/Area] 92 mL/min/{1.73_m2} Normal >60 [facility] Comment on above: Result Comment: Non- GFR Calc Performed By: #### L [id number], L506.0400, L100.0100, L506.1000, L503.6030, L503.6550 #### [facility] [address] [place], [address] Globulin (S) [Mass/Vol] 3.2 g/dL Normal 2.2-4.2 [facility] Comment on above: Performed By: #### L [id number], L506.0400, L100.0100, L506.1000, L503.6030, L503.6550 #### [facility] [address] [place], [address] Glucose [Mass/Vol] 104 mg/dL Normal 74-106 [facility] Comment on above: Result Comment: Fast ing Glucose result from 100 to 125 mg/dL suggests IMPAIRED HOMEOSTASIS per A.D.A. criteria. Performed By: #### L [id number], L506.0400, L100.0100, L506.1000, L503.6030, L503.6550 #### [facility] [address] [place], [address] Potassium [Moles/Vol] 4.0 mmol/L Normal 3.5-5.1 [facility] Comment on above: Performed By: #### L [id number], L506.0400, L100.0100, L506.1000, L503.6030, L503.6550 #### [facility] [address] [place], [address] Sodium [Moles/Vol] 137 mmol/L Normal 136-145 [facility] Comment on above: Performed By: #### L [id number], L506.0400, L100.0100, L506.1000, L503.6030, L503.6550 #### [facility] [address] [place], [address] T PROT 7.4 g/dL Normal 6.4-8.2 [facility] Comment on above: Performed By: #### L [id number], L506.0400, L100.0100, L506.1000, L503.6030, L503.6550 #### [facility] [address] [place], [address] Urea nitrogen [Mass/Vol] 20 mg/dL High 7-18 [facility] Comment on above: Performed By: #### L [id number], L506.0400, L100.0100, L506.1000, L503.6030, L503.6550 #### [facility] [address] [place], [address] Emergency Department Summary on 03-29-2024 Emergency Department Summary [facility] [address] [place] [address] Emergency Department Summary 03/29/24 MR#: [id number] Acct: [id number] Name: VESTA HERNANDEZ Rep #: [id number] : 1995 28 From: Chas Contreras PCP: Care Physician,No Primary Status:DEP ER Location: ED HPI History of Present Illness Chief Complaint: Abd Pain Informant: patient Narrative Narrative: Patient awakened from pain at 1 AM. States pain left abdomen goes to her left flank. Have urine frequency since then. No dysuria. No nausea or vomiting. No fevers. History of kidney stones 5 years ago when she was . Unclear if felt similar. States at that time had an appendectomy a few days prior. No allergies. Last menstrual period 5 days ago. No other abdominal surgeries. No pain down the legs. PFSH PFSH Medical History Kidney stone Wears glasses Wears contact lenses Alcohol use Low iron Migraine headache Blackout Non-smoker History of echocardiogram (spontaneous vaginal delivery) Home Medications ???Medication ???Instructions ???Recorded ???Last Taken ???Type NK 03/29/24 Unknown History ibuprofen 600 mg tablet 600 mg PO Q6H PRN PRN pain #20 Unknown Rx TABLETS ondansetron 4 mg disintegrating 4 mg PO Q8H PRN PRN Nausea #10 tab s 03/29/24 Unknown Rx tablet oxycodone-acetamino phen 5 mg-325 1 tab PO Q6H PRN PRN Pain 3 days 0 03/29/24 Unknown Rx mg tablet #12 TABLETS Allergy/AdvReac Type Severity Reaction Status Date / Time No Known Allergies Allergy Verified 03/29/24 03:05 Family History Father Cancer, Onset Age: 57 Prostate ca Hypertension Grandfather Cancer, Onset Age: 70 Maternal Prostate Cancer Grandmother COPD (chronic obstructive pulmonary disease) Maternal Mother Hypertension Sister Fatty liver due to alcoholism Surgical History History of cystoscopy S/P foot surgery, right History of laparoscopic appendectomy ( 07/19/19) Social History adopted: No household members: significant other and children number of children: 4 current occupational status: unemployed current occupation: [employer] pets and animals: No history of recent travel: No sexually active: Yes Smoking Status: Never smoker alcohol intake: never substance use type: does not use well-balanced diet: daily or most days caffeine: Yes Type: carbonated beverages Number of servings: 1 eating out: 1-3 times/week during the past year weight has: remained stable what type of physical activity do you participate in: walking frequency: 5-6 times per week duration: 30-45 minutes/day andie/congregational: None seatbelt use: always do you feel safe at home: Yes additional 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: [employer] ROS ROS ED Constitutional Constitutional ED: Denies chills, fever(s) or sweats ENT ENT ED: Denies sore throat Cardiovascular Cardiovascular: Denies chest pain, leg edema, palpitations or racing heartbeat Respiratory/Chest Respiratory/Chest: Denies cough, dyspnea or dyspnea on exertion Gastrointestinal Gastrointestinal: Reports abdominal pain; Denies diarrhea, nausea or vomiting Genitourinary Genitourinary ED: Reports urinary frequency; Denies dysuria or hematuria Musculoskeletal Musculoskeletal: Reports back pain; Denies extremity pain or neck pain Integumentary Denies rash or wounds Neurologic Neurologic: Denies headache(s), paresthesias or weakness EXAM Physical Exam Const Vital Signs: 03/29/24 03:04 03/29/24 03:08 03/29/24 05:01 Temperature 97.8 F 98.0 F Temperature Source Oral Pulse Rate 87 94 Respiratory Rate 19 H 16 Blood Pressure 126/88 H 116/85 H Blood Pressure Mean 100 95 Pulse Ox 100 100 Oxygen Delivery Method Room Air Positive well nourished and well developed General Appearance ED: well developed and NAD HEENT Reports moist mucous membranes normocephalic and atraumatic Eyes General Eye ED: Yes normal appearance of both eyes Neck full ROM Chest Wall Chest: Negative for tenderness Resp normal respiratory effort and normal air movement Effort and Inspection: symmetric chest movement; Negative for respiratory distress Cardio regular rate, regular rhythm and no murmurs Peripheral Pulses: pulses 2+ throughout GI normal to inspection, nondistended, normoactive bowel sounds GI Narrative: Negative Hicks's or McBurney's tenderness. Mild tenderness left mid abdomen. No guarding or rebound. Palpation: Negative for guarding or rebound tenderness present Back/Spine Back/Spine Narrative: Tender left flank no ecchy (more content not included)... Normal [facility] Eosinophil percentageOrdered By: Chas Ernst on 03-29-2024 Eosinophils/100 WBC (Bld) 1.1 % 0-5 [facility] Epithelial cells.squamous LM Ql (Urine sed)Ordered By: Chas Ernst on 03-29-2024 Epithelial cells.squamous LM.HPF (Urine sed) [#/Area] 0 /[HPF] 5-10 [facility] Erythrocyte distribution wid th (RBC) [Ratio]Ordered By: Chas Ernst on 03-29-2024 Erythrocyte distribution width (RBC) [Entitic vol] 40.8 fL 35.1-43.9 [facility] Erythrocyte distribution wid th ratioOrdered By: Chas Ernst on 03-29-2024 Erythrocyte distribution width (RBC) [Ratio] 13.1 % 11.6-14.6 [facility] Erythrocyte distribution wid th standard deviationOrdered By: Chas Ernst on 03-29-2024 Erythrocyte distribution width (RBC) [Ratio] 40.8 fl 35.1-43.9 [facility] Estimated glomerular filtrat ion rate (GFR) AmericanOrdered By: Chas Ernst on 03-29-2024 Estimated GFR (MDRD) Amer 111 mL/min >60 [facility] Comment on above: GFR Calc Estimation of creatinine olaf aranceOrdered By: Chas Ernst on 03-29-2024 Estimated Creatinine Clearance Calc 109.44 ml/min [facility] Glomerular filtration rate ( GFR) estimationOrdered By: Chas Ernst on 03-29-2024 Estimated GFR (MDRD) Non-Af Amer 92 mL/min >60 [facility] Comment on above: Non- GFR Calc GFR/1.73 sq M.predicted among non-blacks MDRD (S/P/Bld) [Vol rate/Area] 92 mL/min/{1.73_m2} >60 [facility] Comment on above: Non- GFR Calc Glucose Ql (U)Ordered By: Rocky velázquez Sujata on 03-29-2024 Urine Glucose (UA) Normal mg/dl Normal [facility] Glucose measurementOrdered B y: Chas Sujata on 03-29-2024 Glucose [Mass/Vol] 104 mg/dL 74-106 [facility] Comment on above: Fasting Glucose resu lt from 100 to 125 mg/dL suggests IMPAIRED HOMEOSTASIS per A.D.A. criteria. Hematocrit Auto (Bld) [Volum e fraction]Ordered By: Chas Ernst on 03-29-2024 Hematocrit (Bld) [Volume fraction] 35.7 % Low 37-47 [facility] Hemoglobin measurementOrdere d By: Chas Ernst on 03-29-2024 Hemoglobin (Bld) [Mass/Vol] 11.9 g/dL Low 12.0-15.0 [facility] Immature granulocytes/100 WB C Auto (Bld)Ordered By: Chas Ernst on 03-29-2024 Immature granulocytes/100 WBC (Bld) 0.500 % 0.0-0.9 [facility] Comment on above: IG% - Immature Granu locytes (promyelocytes, myelocytes and metamyelocytes) > 1% indicates that a LEFT SHIFT is Present. Ketones Test strip Ql (U)Ord ered By: Chas Ernst on 03-29-2024 Ketones Ql (U) Negative Negative [facility] - Chemistry and C hemistry - challengeOrdered By: Chas Ernst on 03-29-2024 AST [Catalytic activity/Vol] 14 U/L Low 15-37 [facility] Lipaseon 03-29-2024 Lipase [Catalytic activity/Vol] 42 U/L Normal 13-75 [facility] Comment on above: Result Comment: Jordy cowan note: LIPASE revised reference range effective 22. New Lipase methodology. Expected to produce lower values than the previous assay method. NEW Reference Range: 13 - 75 U/L Performed By: #### L [id number], L506.0400, L100.0100, L506.1000, L503.6030, L503.6550 #### [facility] [place], [address] Lipase measurementOrdered By : Chas Ernst on 03-29-2024 Lipase [Catalytic activity/Vol] 42 U/L 13-75 [facility] Comment on above: Please note:LIPASE r evised reference range effective 22. New Lipase methodology. Expected to produce lower values than the previous assay method. NEW Reference Range: 13 - 75 U/L Lymphocytes Auto (Unsp spec) [#/Vol]Ordered By: Chas Ernst on 03-29-2024 Lymphocytes (Bld) [#/Vol] 1.82 10*3/uL 0.83-4.5 1 [facility] Lymphocytes/100 WBC Auto (Un sp spec)Ordered By: Chas Ernst on 03-29-2024 Lymphocytes/100 WBC (Bld) 28.5 % 19-41 [facility] MCV (mean corpuscular volume ) determinationOrdered By: Chas Ernst on 03-29-2024 MCV (RBC) [Entitic vol] 86.0 fL 81-99 [facility] Mean corpuscular hemoglobin (MCH) determinationOrdered By: Chas Ernst on 03-29-2024 MCH (RBC) [Entitic mass] 28.7 pg 27.0-32.0 [facility] Mean corpuscular hemoglobin concentration (MCHC) determinationOrdered By: Chas Ernst on 03-29-2024 MCHC (RBC) [Mass/Vol] 33.3 g/dL 32-36 [facility] Mean platelet volume determi nationOrdered By: Chas Ernst on 03-29-2024 Platelet mean volume (Bld) [Entitic vol] 10.8 fL 6.2-12.0 [facility] Microscopic analysis of urin e for red blood cells (RBC)Ordered By: Chas Ernst on 03-29-2024 Microscopic analysis of urine for red blood cells (RBC) 0 SEEN /hpf 0-5 [facility] Urine RBC 0 SEEN /hpf 0-5 [facility] Monocyte percentageOrdered B y: Chas Ernst on 03-29-2024 Monocytes/100 WBC (Bld) 7.7 % 0-10 [facility] Mucus LM Ql (Urine sed)Order ed By: Chas Ernst on 03-29-2024 Mucus Ql (Urine sed) 1+ /hpf [facility] Neutrophil percentageOrdered By: Chas Ernst on 03-29-2024 Neutrophils/100 WBC (Bld) 61.6 % 47-70 [facility] Nitrite Test strip Ql (U)Ord ered By: Chas Ernst on 03-29-2024 Nitrite Ql (U) Negative Negative [facility] Nucleated red blood cell per centageOrdered By: Chas Ernst on 03-29-2024 Nucleated RBC/100 WBC (Bld) [Ratio] 0 % 0-5 [facility] Platelet countOrdered By: Rocky Ernst on 03-29-2024 Platelets (Bld) [#/Vol] 208 10*3/uL 150-450 [facility] Potassium measurementOrdered By: Chas Ernst on 03-29-2024 Potassium [Moles/Vol] 4.0 mmol/L 3.5-5.1 [facility] ,Serum,hCG Quali.on 03-29-2024 HCG, SERUM QUAL Negative Normal [facility] Comment on above: Performed By: #### L [id number], L506.0400, L100.0100, L506.1000, L503.6030, L503.6550 #### [facility] [address] [place], [place], [id number] Protein Test strip Ql (U)Ord ered By: Chas Ernst on 03-29-2024 Protein Ql (U) Negative Negative [facility] RBC Auto (Bld) [#/Vol]Ordere d By: Chas Ernst on 03-29-2024 RBC (Bld) [#/Vol] 4.15 10*6/uL Low 4.2-5.4 [facility] Serum anion gap measurementO rdered By: Chas Ernst on 03-29-2024 Anion gap [Moles/Vol] 6 mmol/L 5-15 [facility] Serum beta-hCG test, qualita tiveOrdered By: Chas Ernst on 03-29-2024 Beta HCG ( test) Ql Negative [facility] Serum globulin measurementOr dered By: Chas Ernst on 03-29-2024 Globulin (S) [Mass/Vol] 3.2 g/dL 2.2-4.2 [facility] Serum or plasma alanine contreras otransferase (ALT) measurementOrdered By: Chas Ernst on 03-29-2024 ALT [Catalytic activity/Vol] 17 U/L 13-56 [facility] Serum or plasma albumin elle urement (mass/volume)Ordered By: Chas Ernst on 03-29-2024 Albumin [Mass/Vol] 4.2 g/dL 3.2-5.0 [facility] Serum or plasma alkaline brennan sphatase measurementOrdered By: Chas Ernst on 03-29-2024 ALP [Catalytic activity/Vol] 41 U/L Low 45-117 [facility] Serum or plasma calcium elle urement (mass/volume)Ordered By: Chas Ernst on 03-29-2024 Calcium [Mass/Vol] 8.7 mg/dL 8.5-10.1 [facility] Serum or plasma creatinine m easurement (mass/volume)Ordered By: Chas Ernst on 03-29-2024 Creatinine [Mass/Vol] 0.78 mg/dL 0.55-1.02 [facility] Comment on above: The validity of the calculated GFR & GFRAA in patients over 70 years has not been determined. Clinical correlation is essential. Serum or plasma urea nitroge n measurement (mass/volume)Ordered By: Chas Ernst on 03-29-2024 Urea nitrogen [Mass/Vol] 20 mg/dL High 7-18 [facility] Sodium levelOrdered By: Chas Ernst on 03-29-2024 Sodium [Moles/Vol] 137 mmol/L 136-145 [facility] Squamous epithelial cells de tection in urine sediment by light microscopyOrdered By: Chas Ernst on 03-29-2024 Epithelial cells.squamous LM Ql (Urine sed) 0-5 SEEN /hpf 5-10 [facility] Total proteinOrdered By: Samir Ernst on 03-29-2024 Protein [Mass/Vol] 7.4 g/dL 6.4-8.2 [facility] Urinalysis, Completeon 03-29 BACTERIA RARE Normal None Seen [facility] Comment on above: Order Comment: CLEAN CATCH Performed By: #### L 501.9520, L506.0400, L100.0100, L506.1000, L503.6030, L503.6550 #### [facility] [address] [place], [address] EPI,SQUAMOUS 0-5 SEEN Normal 5-10 [facility] Comment on above: Order Comment: CLEAN CATCH Performed By: #### L [id number], L506.0400, L100.0100, L506.1000, L503.6030, L503.6550 #### [facility] [address] [place], [address] Mucus Ql (Urine sed) 1+ /hpf Normal [facility] Comment on above: Order Comment: CLEAN CATCH Performed By: #### L [id number], L506.0400, L100.0100, L506.1000, L503.6030, L503.6550 #### [facility] [address] [place], [address] WBC 0-5 SEEN Normal 0-5 [facility] Comment on above: Order Comment: CLEAN CATCH Performed By: #### L [id number], L506.0400, L100.0100, L506.1000, L503.6030, L503.6550 #### [facility] [address] [place], [address] BILIRUBIN URINE Negative Normal Negative [facility] Comment on above: Order Comment: CLEAN CATCH Performed By: #### L 501.9520, L506.0400, L100.0100, L506.1000, L503.6030, L503.6550 #### [facility] [address] [place], [address] Clarity (U) Clear Normal Clear [facility] Comment on above: Order Comment: CLEAN CATCH Performed By: #### L 501.9520, L506.0400, L100.0100, L506.1000, L503.6030, L503.6550 #### [facility] [address] [place], [address] Color (U) Straw Normal Yellow [facility] Comment on above: Order Comment: CLEAN CATCH Performed By: #### L 501.9520, L506.0400, L100.0100, L506.1000, L503.6030, L503.6550 #### [facility] [address] [place], [address] GLUCOSE, UR Normal Normal Normal [facility] Comment on above: Order Comment: CLEAN CATCH Performed By: #### L 501.9520, L506.0400, L100.0100, L506.1000, L503.6030, L503.6550 #### [facility] [address] [place], [address] KETONE UR Negative Normal Negative [facility] Comment on above: Order Comment: CLEAN CATCH Performed By: #### L 501.9520, L506.0400, L100.0100, L506.1000, L503.6030, L503.6550 #### [facility] [address] [place], [address] LEUK ESTERASE Negative Normal Negative [facility] Comment on above: Order Comment: CLEAN CATCH Performed By: #### L 501.9520, L506.0400, L100.0100, L506.1000, L503.6030, L503.6550 #### [facility] [address] [place], [address] Nitrite Ql (U) Negative Normal Negative [facility] Comment on above: Order Comment: CLEAN CATCH Performed By: #### L 501.9520, L506.0400, L100.0100, L506.1000, L503.6030, L503.6550 #### [facility] [address] [place], [address] OCCULT BLOOD-UR 25 /ul Abnormal Negative [facility] Comment on above: Order Comment: CLEAN CATCH Performed By: #### L 501.9520, L506.0400, L100.0100, L506.1000, L503.6030, L503.6550 #### [facility] [address] [place], [address] pH UR 6.0 Normal 5.0 - 8.0 [facility] Comment on above: Order Comment: CLEAN CATCH Performed By: #### L 501.9520, L506.0400, L100.0100, L506.1000, L503.6030, L503.6550 #### [facility] [address] [place], [address] PROT DIPSTX Negative Normal Negative [facility] Comment on above: Order Comment: CLEAN CATCH Performed By: #### L 501.9520, L506.0400, L100.0100, L506.1000, L503.6030, L503.6550 #### [facility] [address] [place], [address] SP.GR. DIPSTX 1.015 Normal 1.002-1.030 [facility] Comment on above: Order Comment: CLEAN CATCH Performed By: #### L 501.9520, L506.0400, L100.0100, L506.1000, L503.6030, L503.6550 #### [facility] [address] [place], [address] UROBILI Normal Normal Normal [facility] Comment on above: Order Comment: CLEAN CATCH Performed By: #### L 501.9520, L506.0400, L100.0100, L506.1000, L503.6030, L503.6550 #### [facility] [address] [place], [address] RBC 0 SEEN Normal 0-5 [facility] Comment on above: Order Comment: CLEAN CATCH Performed By: #### L 501.9520, L506.0400, L100.0100, L506.1000, L503.6058, L503.6545 #### [facility] [place], [address] Urine blood detectionOrdered By: Chas Ernst on 03-29-2024 Urine Occult Blood 25 /ul High Negative [facility] Urine clarityOrdered By: Samir Ernst on 03-29-2024 Clarity (U) Clear Clear [facility] Urine color determinationOrd ered By: Chas Ernst on 03-29-2024 Color (U) Straw Yellow [facility] Urine glucose detectionOrder ed By: Chas Ernst on 03-29-2024 Glucose Ql (U) Normal mg/dl Normal [facility] Urine leukocyte esterase det ection by dipstickOrdered By: Chas Ernst on 03-29-2024 Leukocyte esterase Test strip Ql (U) Negative Negative [facility] Urine pHOrdered By: Chas Ernst on 03-29-2024 pH (U) 6.0 [pH] 5.0 - 8.0 [facility] Urine sediment bacteria coun t by microscopy (number/high power field)Ordered By: Chas Ernst on 03-29-2024 Bacteria LM.HPF (Urine sed) [#/Area] RARE /hpf None Seen [facility] Urine specific gravity measu rementOrdered By: Chas Ernst on 03-29-2024 Specific gravity (U) [Rel density] 1.015 1.002-1.030 [facility] Urine urobilinogen measureme ntOrdered By: Chas Ernst on 03-29-2024 Urobilinogen Ql (U) Normal mg/dl Normal [facility] Urobilinogen Ql (U)Ordered B y: Chas Ernst on 03-29-2024 Urine Urobilinogen Normal mg/dl Normal [facility] White blood cell (WBC) count Ordered By: Chas Ernst on 03-29-2024 WBC (Bld) [#/Vol] 6.4 10*3/uL 4.4-11.0 [facility] White blood cell countOrdere d By: Chas Ernst on 03-29-2024 Urine WBC 0-5 SEEN /hpf 0-5 [facility] White blood cell count 0-5 SEEN /hpf 0-5 [facility] Direct serum free thyroxine (FT4) measurementOrdered By: Vera Love on 02-09-2024 Free T4 [Mass/Vol] 0.90 ng/dL 0.76-1.46 [facility] T4 Free Directon 02-09-2024 T4 FREE DIRECT 0.90 ng/dL Normal 0.76-1.46 [facility] Comment on above: Performed By: #### L [id number], L506.0400, L100.0100, L506.1000, L503.6030, L503.6550 #### [facility] [address] [place], [place], [address] TSH QnOrdered By: Vera laura on 02-09-2024 Thyroid Stimulating Hormone (TSH) 12.100 uIU/mL High 0.358-3.740 [facility] Thyroid Stim Hormone (TSH)on 02-09-2024 TSH 12.100 uIU/mL High 0.358-3.740 [facility] [facility] Comment on above: Performed By: #### L 501.9520, L506.0400, L100.0100, L506.1000, L503.6030, L503.6550 #### [facility] Laboratory [address] [place], [place], [address] [employer] Office Visit Reporton 11-01-2023 [employer] Office Visit Report [facility] [address], [address] [place] [address] OFFICE VISIT Date of Service: 11/01/23 MR#: [id number] Acct: [id number] Name: VESTA HERNANDEZ Brett Rep #: [id number] : 1995 Provider: Dr. Vera velasquez MD Age/Sex: 28/F Location: [facility] Status: Signed Intake Vital Signs 10/16/23 11:01 11/01/23 14:45 11/01/23 14:46 Height 5 ft 6 in 5 ft 6 in 5 ft 6 in Weight: 147 lb BMI 23.7 BP 122/76 H Intake Visit Reasons: 2 wk follow up Chief Complaint: 2 wk follow up Is patient in pain?: No Allergies No Known Allergies Allergy (Verified 11/01/23 14:47) Medications ???Medication ???Instructions ???Recorded ???Confirmed ???Type multivitamin no.47-iron fum 27 1 cap PO DAILY 08/22/23 11/01/23 History mg-folate no.1 1 mg-dha 300 mg capsule (PNV-DHA) valacyclovir 500 mg tablet 500 mg PO BID PRN cold sores 08/22/23 11/01/23 History (Valtrex) Is last menstrual period known: No Post menopausal: No Patient : No : No PFSH Medical History Wears glasses Wears contact lenses Alcohol use Low iron Migraine headache Blackout Non-smoker History of echocardiogram (spontaneous vaginal delivery) Surgical History History of cystoscopy S/P foot surgery, right History of laparoscopic appendectomy ( 07/19/19) Family History Father Cancer, Onset Age: 57 Prostate ca Hypertension Grandfather Cancer, Onset Age: 70 Maternal Prostate Cancer Grandmother COPD (chronic obstructive pulmonary disease) Maternal Mother Hypertension Sister Fatty liver due to alcoholism Social History adopted: No household members: significant other and children number of children: 4 current occupational status: unemployed current occupation: [employer] pets and animals: No history of recent travel: No sexually active: Yes Smoking Status: Never smoker alcohol intake: never substance use type: does not use well-balanced diet: daily or most days caffeine: Yes Type: carbonated beverages Number of servings: 1 eating out: 1-3 times/week during the past year weight has: remained stable what type of physical activity do you participate in: walking frequency: 5-6 times per week duration: 30-45 minutes/day andie/congregational: None seatbelt use: always do you feel safe at home: Yes additional 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: BF [employer] HPI 2 wk follow up Details: VESTA HERNANDEZ is a 28 year old who presents for 2 week post op; D C on 10/16/2023 with SM; miscarriage. 1 miscarriage. She reports she is having mild spotting where she has a liner but feels this is improving day by day. She reports no fever, chills, discharge, or foul odors. She reports her pain has subsided after about 48 hours post procedure. History 5 Elective abortions Hx Para 4 Spontaneous abortions 1 Hx # Term Pregnancies Ectopic pregnancies Hx # Pregnancies Multiple births # of living children 4 Past Pregnancies Del. Date Name GA/Weeks Outcome Route Bth Weight Gen Labor Lgth Anesthesia Del Locatn Provider FOB 03/23/14 [place] 40 live - full term 8#1oz Female epidural [facility] 03/03/18 [place] 39 live - full term 8#13oz Male epidural [facility] Dr. Elio Hilario 10/06/19 [place] 38 live - full term 6#3oz Female epidural [facility] Hilario 05/23/21 [place] 38 live - full term 8#5oz Male epidural [facility] Hilario 10/16/23 D C ROS Const Constitutional: Denies fatigue, fever(s), headache(s), increased appetite, poor appetite, weight gain or weight loss GI GI: Reports as per HPI; Denies abdominal pain, constipation, nausea or vomiting : Reports as per HPI; Denies difficulty voiding, dysuria, hematuria, pelvic pain, urinary frequency, urinary incontinence, urinary hesitancy, urinary urgency, vaginal discharge, vaginal dryness, vaginal odor, vaginal pruritus or other Exam Const General: cooperative, healthy appearing, comfortable, no acute distress and well developed Orientation: alert [facility] Head: normal to inspection and normocephalic Ears: hearing grossly normal bilaterally and external ears normal Nose: external nose normal and nares normal Face and sinus: normal facial exam Neck Neck: normal visual inspection, no lymphadenopathy and trachea midline Thyroid: thyroid normal Resp Effort Inspection: normal respiratory effort Musc Other: gross motor intact no deficits, full bilateral strengt (more content not included)... Normal [facility] T4 Free Directon 11-01-2023 T4 FREE DIRECT 0.93 ng/dL Normal 0.76-1.46 [facility] Comment on above: Performed By: #### L 501.9520, L506.0400, L100.0100, L506.1000, L503.6030, L503.6550 #### [facility] [address] [place], [place], [address] Thyroid Stim Hormone (TSH)on 11-01-2023 TSH 6.770 uIU/mL High 0.358-3.740 [facility] Comment on above: Performed By: #### L 501.9520, L506.0400, L100.0100, L506.1000, L503.6030, L503.6550 #### [facility] [address] [place], [place], [address] Anticardiolipin IgG, IgMon 0 - Anticardio.IgG < 9 Normal 0-14 [facility] Comment on above: Result Comment: Nega tive: <15 Indeterminate: 15 - 20 Low-Med Positive: >20 - 80 High Positive: >80 Performed By: #### L 501.9520, L506.0400, L100.0100, L506.1000, L503.6030, L503.6550 #### [facility] [address] [place], [place], [address] Anticardio.IgM 11 MPL U/mL Normal 0-12 [facility] Comment on above: Result Comment: Nega tive: <13 Indeterminate: 13 - 20 Low-Med Positive: >20 - 80 High Positive: >80 Performed at: [address] [id number] Subeditor: Kaiden Addison MD, Phone: [phone] Performed at: [address] [id number] Subeditor: Gopi Covington PhD, Phone: [phone] Performed By: #### L 501.9520, L506.0400, L100.0100, L506.1000, L503.6030, L503.6550 #### [facility] [address] [place], [place], [id number] (937) Beta-2 Glycoprot IgG, A, 10-23-2023 B2 GLYCO I IGA <9 Normal 0-25 [facility] Comment on above: Result Comment: Resu lt Units: GPI IgA units The reference interval reflects a 3SD or 99th percentile interval, which is thought to represent a potentially clinically significant result in accordance with the International Consensus Statement on the classification criteria for definitive antiphospholipid syndrome (APS). J Thromb Haem 2006;4:295-306. Performed By: #### L 501.9520, L506.0400, L100.0100, L506.1000, L503.6030, L503.6550 #### [facility] [address] [place], [address] B2 GLYCO I IGG <9 Normal 0-20 [facility] Comment on above: Result Comment: Resu lt Units: GPI IgG units The reference interval reflects a 3SD or 99th percentile interval, which is thought to represent a potentially clinically significant result in accordance with the International Consensus Statement on the classification criteria for definitive antiphospholipid syndrome (APS). J Thromb Haem 2006;4:295-306. Performed By: #### L 501.9520, L506.0400, L100.0100, L506.1000, L503.6030, L503.6550 #### [facility] [address] [place], [address] B2 GLYCO I IGM <9 Normal 0-32 [facility] Comment on above: Result Comment: Resu lt Units: GPI IgM units The reference interval reflects a 3SD or 99th percentile interval, which is thought to represent a potentially clinically significant result in accordance with the International Consensus Statement on the classification criteria for definitive antiphospholipid syndrome (APS). J Thromb Haem 2006;4:295-306. Performed By: #### L 501.9520, L506.0400, L100.0100, L506.1000, L503.6030, L503.6550 #### [facility] [address] [place], [address] Lupus Anticoagulant Compon 0 10-23-2023 aPTT Coag (Bld) [Time] 38.6 s Normal 0.0-43.5 [facility] Comment on above: Performed By: #### L 501.9520, L506.0400, L100.0100, L506.1000, L503.6030, L503.6550 #### [facility] [address] [place], [address] DILUTE PT (dPT) 34.3 sec Normal 0.0-47.6 [facility] Comment on above: Performed By: #### L 501.9520, L506.0400, L100.0100, L506.1000, L503.6030, L503.6550 #### [facility] [address] [place], [address] dPT Conf. Ratio 1.11 Ratio Normal 0.00-1.34 [facility] Comment on above: Performed By: #### L 501.9520, L506.0400, L100.0100, L506.1000, L503.6030, L503.6550 #### [facility] [address] [place], [address] DRVVT 37.9 sec Normal 0.0-47.0 [facility] Comment on above: Performed By: #### L 501.9520, L506.0400, L100.0100, L506.1000, L503.6030, L503.6550 #### [facility] [address] [place], [address] Interpretation Comment: Normal . [facility] Comment on above: Result Comment: No l upus anticoagulant was detected. Performed By: #### L 501.9520, L506.0400, L100.0100, L506.1000, L503.6030, L503.6550 #### [facility] [address] [place], [address] THROMBIN TIME 16.7 sec Normal 0.0-23.0 [facility] Comment on above: Performed By: #### L 501.9520, L506.0400, L100.0100, L506.1000, L503.6030, L503.6550 #### [facility] [address] [place], [address] Miscellaneous Lab Procedureo n 10-23-2023 [facility] [place] Normal [facility] Comment on above: Order Comment: [facility] [id number] ANTIPHOSPHOLIPID PANEL Result Comment: TEST RESULTS LIMITS Antiphospholipid Syndrome aPTT 21.8 Low sec 22.9-30.2 PT 10.3 sec 9.1-12.0 INR 1.0 0.9-1.2 Reference interval is for non-anticoagulated patients. Suggested INR therapeutic range for Vitamin K antagonist therapy: Standard Dose (moderate intensity therapeutic range): 2.0 - 3.0 Higher intensity therapeutic range 2.5 - 3.5 Thrombin Time 16.3 sec 0.0-23.0 dRVVT 31.0 sec 0.0-47.0 Hexagonal Phase Phospholipid 2 sec 0-11 Anticardiolipin Ab,IgG,Qn <9 GPL U/mL 0-14 Negative: <15 Indeterminate: 15 - 20 Low-Med Positive: >20 - 80 High Positive: >80 Anticardiolipin Ab,IgM,Qn <9 MPL U/mL 0-12 Negative: <13 Indeterminate: 13 - 20 Low-Med Positive: >20 - 80 High Positive: >80 Beta-2 Glycoprotein I Ab, IgG <9 GPI IgG units 0-20 Please Note: The reference interval reflects a 3SD or 99th percentile interval, which is thought to represent a potentially clinically significant result in accordance with the International Consensus Statement on the classification criteria for definitive antiphospholipid syndrome (APS). J Thromb Haem 2006;4:295-306. Beta-2 Glycoprotein I Ab, IgM <9 GPI IgM units 0-32 Please Note: The reference interval reflects a 3SD or 99th percentile interval, which is thought to represent a potentially clinically significant result in accordance with the International Consensus Statement on the classification criteria for definitive antiphospholipid syndrome (APS). J Thromb Haem 2006;4:295-306. APS Panel Interpretation Please refer to the Coag Studies Interp Report. Coag Studies Interp Report Interpretation Note COAGULATION: ANTIPHOSPHOLIPID SYNDROME ASSESSMENT ASSESSMENT A lupus anticoagulant is not detected. aCL and B2GP1 antibodies are normal. ANTIPHOSPHOLIPID SYNDROME ASSESSMENT SUMMARY - No evidence of a lupus anticoagulant, B2GP1 or aCL antibodies. As antibody titers may fluctuate with time, repeat testing may be indicated if antiphospholipid syndrome is suspected. ANTIPHOSPHOLIPID SYNDROME ASSESSMENT DEFINITIONS - aCL- anticardiolipin (antibodies to cardiolipin); B2GP1- antibodies to Beta-2 Glycoprotein 1; LA- lupus anticoagulant (which is identified with the dRVVT and/or hexagonal phospholipid neutralization assays); aPL- antibodies to protein/phospholipid complexes such as LA, aCL, and B2GP1 antibodies; APS- antiphospholipid syndrome; DTI-direct thrombin inhibitors. SENIOR PRODUCT MANAGER: For questions regarding panel interpretation, please contact Renato Bates M.D. at [employer] at . DISCLAIMER These assessments and interpretations are provided as a convenience in support of the physician-patient relationship and are not intended to replace the physician's clinical judgment. They are derived from national guidelines in addition to other evidence and expert opinion. The clinician should consider this information within the context of clinical opinion and the individual patient. SEE GUIDANCE FOR ANTIPHOSPHOLIPID SYNDROME ASSESSMENT:(1) Shady V et al. J Thromb Haemost. 2009; 7(10):6902-9967. (2) Mykel S et al. J Thromb Haemost. 2006;4(2):295-306. (3) Phil DA et al. Blood. 2007;110(9): 2767-4252. TESTING PERFORMED AT [facility]. ORIGINAL REPORT ON FILE IN LAB CONTAINS ADDITIONAL TEST SITE INFORMATION. Performed By: #### L 501.9520, L506.0400, L100.0100, L506.1000, L503.6030, L503.6550 #### [facility] [address] [place], [place], [address] T4 Free Directon 10-19-2023 T4 FREE DIRECT 0.92 ng/dL Normal 0.76-1.46 [facility] Comment on above: Performed By: #### L 501.9520, L506.0400, L100.0100, L506.1000, L503.6030, L503.6550 #### [facility] [address] [place], [place], [address] Type AND Screen - PAT ONLYon 10-19-2023 A1 CELL Not performed Normal [facility] Comment on above: Order Comment: Surge ry Date: [id number] dilation and curettage Result Comment: PT S TATED SHE HAD D C ON MONDAY. Performed By: #### L 501.9520, L506.0400, L100.0100, L506.1000, L503.6030, L503.6550 #### [facility] [address] [place], [place], [address] Ab SCREEN GEL Not performed Normal [facility] Comment on above: Order Comment: Surge ry Date: [id number] dilation and curettage Result Comment: PT S TATED SHE HAD D C ON MONDAY. Performed By: #### L 501.9520, L506.0400, L100.0100, L506.1000, L503.6030, L503.6550 #### [facility] [address] [place], [place], [address] ABO and Rh group Nom (Bld) Test Not Performed Normal [facility] Comment on above: Order Comment: Surge ry Date: [id number] dilation and curettage Result Comment: PT S TATED SHE HAD D C ON MONDAY. Performed By: #### L 501.9520, L506.0400, L100.0100, L506.1000, L503.6030, L503.6550 #### [facility] [address] [place], [place], [address] ANTI A Not performed Normal [facility] Comment on above: Order Comment: Surge ry Date: [id number] dilation and curettage Result Comment: PT S TATED SHE HAD D C ON MONDAY. Performed By: #### L 501.9520, L506.0400, L100.0100, L506.1000, L503.6030, L503.6550 #### [facility] [address] [place], [place], [address] ANTI B Not performed Normal [facility] Comment on above: Order Comment: Surge ry Date: [id number] dilation and curettage Result Comment: PT S TATED SHE HAD D C ON MONDAY. Performed By: #### L 501.9520, L506.0400, L100.0100, L506.1000, L503.6030, L503.6550 #### [facility] [address] [place], [place], [address] ANTI D Not performed Normal [facility] Comment on above: Order Comment: Surge ry Date: [id number] dilation and curettage Result Comment: PT S TATED SHE HAD D C ON MONDAY. Performed By: #### L 501.9520, L506.0400, L100.0100, L506.1000, L503.6030, L503.6550 #### [facility] [address] [place], [place], [address] B CELLS Not performed Normal [facility] Comment on above: Order Comment: Surge ry Date: [id number] dilation and curettage Result Comment: PT S TATED SHE HAD D C ON MONDAY. Performed By: #### L 501.9520, L506.0400, L100.0100, L506.1000, L503.6030, L503.6550 #### [facility] [address] [place], [address] BLD TYPE RECHEK Not performed Normal [facility] Comment on above: Order Comment: Surge ry Date: [id number] dilation and curettage Result Comment: PT S TATED SHE HAD D C ON MONDAY. Performed By: #### L 501.9520, L506.0400, L100.0100, L506.1000, L503.6030, L503.6550 #### [facility] [address] [place], [place], [address] PAP I-G w/rfx hrHPV-Aptimaon 10-18-2023 ADEQ Comment Normal . [facility] Comment on above: Order Comment: Speci men Comment: [id number] Specimen Comment: Source.............Cervix Specimen Comment: Other.............. Specimen Comment: No. of containers..01 ThinPrep Vial Result Comment: Sati sfactory for evaluation. Endocervical and/or squamous metaplastic cells (endocervical component) are present. Performed By: #### L 7400.0353 #### [facility] [address] [place], [place], [address] COMM . Normal . [facility] Comment on above: Order Comment: Speci men Comment: [id number] Specimen Comment: Source.............Cervix Specimen Comment: Other.............. Specimen Comment: No. of containers..01 ThinPrep Vial Performed By: #### L 7400.0353 #### [facility] [address] [place], [place], [address] COMMENT Comment Normal . [facility] Comment on above: Order Comment: Speci men Comment: [id number] Specimen Comment: Source.............Cervix Specimen Comment: Other.............. Specimen Comment: No. of containers..01 ThinPrep Vial Result Comment: This liquid based ThinPrep(R) pap test was screened with the use of an image guided system. Performed By: #### L 7400.0353 #### [facility] [address] [place], [place], [address] DIAG Comment Normal . [facility] Comment on above: Order Comment: Speci men Comment: [id number] Specimen Comment: Source.............Cervix Specimen Comment: Other.............. Specimen Comment: No. of containers..01 ThinPrep Vial Result Comment: NEGA TIVE FOR INTRAEPITHELIAL LESION OR MALIGNANCY. Performed By: #### L 7400.0353 #### [facility] [address] [place], [place], [address] HPV RFLX Comment Normal . [facility] Comment on above: Order Comment: Speci men Comment: [id number] Specimen Comment: Source.............Cervix Specimen Comment: Other.............. Specimen Comment: No. of containers..01 ThinPrep Vial Result Comment: The HPV DNA reflex criteria were not met with this specimen result therefore, no HPV testing was performed. Performed at: [facility] [address] [place], [place] [id number] Subeditor: Mihai Mckeon MD, Phone: [phone] Performed at: [facility] [id number] Subeditor: Keri Santa MD, Phone: [phone] Performed By: #### L 7400.0353 #### [facility] [address] [place], [place], [address] PAPSMR Comment Normal . [facility] Comment on above: Order Comment: Speci men Comment: [id number] Specimen Comment: Source.............Cervix Specimen Comment: Other.............. Specimen Comment: No. of containers..01 ThinPrep Vial Result Comment: The Pap smear is a screening test designed to aid in the detection of premalignant and malignant conditions of the uterine cervix. It is not a diagnostic procedure and should not be used as the sole means of detecting cervical cancer. Both false-positive and false-negative reports do occur. Performed By: #### L 7400.0353 #### [facility] [address] [place], [place], [address] PERFORM Comment Normal . [facility] Comment on above: Order Comment: Speci men Comment: [id number] Specimen Comment: Source.............Cervix Specimen Comment: Other.............. Specimen Comment: No. of containers..01 ThinPrep Vial Result Comment: Michela Waddell Auto Mechanics Instructor (ASCP) Performed By: #### L 7400.0353 #### [facility] [address] [place], [place], [address] CBC-Complete Blood Cnt No Di ffon 10-16-2023 Erythrocyte distribution width (RBC) [Ratio] 16.8 % High 11.6-14.6 [facility] Comment on above: Performed By: #### L 501.9520, L506.0400, L100.0100, L506.1000, L503.6030, L503.6550 #### [facility] [address] [place], [address] Hematocrit (Bld) [Volume fraction] 36.7 % Low 37-47 [facility] Comment on above: Performed By: #### L 501.9520, L506.0400, L100.0100, L506.1000, L503.6030, L503.6550 #### [facility] [address] [place], [address] Hemoglobin (Bld) [Mass/Vol] 11.8 g/dL Low 12.0-15.0 [facility] Comment on above: Performed By: #### L 501.9520, L506.0400, L100.0100, L506.1000, L503.6030, L503.6550 #### [facility] [address] [place], [address] MCH (RBC) [Entitic mass] 28.3 pg Normal 27.0-32.0 [facility] Comment on above: Performed By: #### L 501.9520, L506.0400, L100.0100, L506.1000, L503.6030, L503.6550 #### [facility] [address] [place], [address] MCHC (RBC) [Mass/Vol] 32.2 g/dL Normal 32-36 [facility] Comment on above: Performed By: #### L 501.9520, L506.0400, L100.0100, L506.1000, L503.6030, L503.6550 #### [facility] [address] [place], [address] MCV (RBC) [Entitic vol] 88.0 fL Normal 81-99 [facility] Comment on above: Performed By: #### L 501.9520, L506.0400, L100.0100, L506.1000, L503.6030, L503.6550 #### [facility] [address] [place], [address] Platelet mean volume (Bld) [Entitic vol] 10.7 fL Normal 6.2-12.0 [facility] Comment on above: Performed By: #### L 501.9520, L506.0400, L100.0100, L506.1000, L503.6030, L503.6550 #### [facility] [address] [place], [address] Platelets (Bld) [#/Vol] 186 10*3/uL Normal 150-450 [facility] Comment on above: Performed By: #### L 501.9520, L506.0400, L100.0100, L506.1000, L503.6030, L503.6550 #### [facility] [address] [place], [address] RBC (Bld) [#/Vol] 4.17 10*6/uL Low 4.2-5.4 [facility] Comment on above: Performed By: #### L 501.9520, L506.0400, L100.0100, L506.1000, L503.6030, L503.6550 #### [facility] [address] [place], [address] RDW SD 54.0 fl High 35.1-43.9 [facility] Comment on above: Performed By: #### L 501.9520, L506.0400, L100.0100, L506.1000, L503.6030, L503.6550 #### [facility] Laboratory [address] [place], [address] WBC (Bld) [#/Vol] 6.7 10*3/uL Normal 4.4-11.0 [facility] Comment on above: Performed By: #### L 501.9520, L506.0400, L100.0100, L506.1000, L503.6030, L503.6550 #### [facility] Laboratory [address] [place], [address] Discharge Instructionon 09-27 Discharge Instruction [facility] Medical Records Department [address] [place] [address] Instructions for Home/Discharge Instructions 10/16/23 1336 MR#: [id number] Acct: [id number] Name: VESTA HERNANDEZ Rep #: [id number] : 1995 28 From: Vera Love MD PCP: [place] Physician,No Primary [place] [facility] [place] Instructions Diet Discharge Diet: No restrictions Activity Discharge Activity: Return to Normal Activity, May Shower and May Take a Tub Bath (after 1 week) May resume sexual activity in: 1-2 weeks Weight Bearing Status: Weight bearing as tolerated Lifting Restrictions: none Dressing / Incision Call your doctor if you observe: Fever of 101 or Higher, Using more than 1 pad per hour, Shortness of breath and Uncontrolled pain Follow Up Care Please Follow Up With: Vera Love MD When: Call [phone] to schedule appointment. Test Results: Test results from this visit will be discussed in further detail at your follow-up appointment, if applicable. Discharge Plan Admission Attending Provider: Vera Love Primary Care Provider: Care Physician,No Primary Instructions Print Language: Bengali Discharge Orders/Prescription s Prescriptions: No Action PNV-DHA 27 mg iron-1 mg -300 mg capsule 1 cap PO DAILY valacyclovir [Valtrex] 500 mg tablet 500 mg PO BID PRN (Reason: cold sores) Other Ambulatory Orders: Pathology Specimen OB (Routine) Timeframe: [id number] Facility: [facility] - Location: Laboratory Ordered By: Dr. Vera Love Referrals / Follow Up: Care Physician,No Primary [Primary Care Provider] - Disposition Disposition (needs filled in before D/C Order can be placed): Home, Self Care 10/16/23 4905 Vera Love MD CC: No Primary Care Physician Signed Normal [facility] Hemoglobin A1con 10-16-2023 HbA1c (Bld) [Mass fraction] 5.0 % Normal 3.8-5.6 [facility] Comment on above: Result Comment: Norm al < 5.7 % Prediabetic 5.7 - 6.4 % Diabetic >or= 6.5 % Please note range changes. Performed By: #### L 501.9520, L506.0400, L100.0100, L506.1000, L503.6030, L503.6550 #### [facility] Laboratory [address] [place], [address] MR/POSTOP.ANEon 10-16-2023 MR/POSTOP.[facility] Medical Records Department [address] [place] [address] Anesthesia Postop Eval I 10/16/23 1344 MR#: [id number] Acct: [id number] Name: VESTA HERNANDEZ Rep #: [id number] : 1995 28 From: Balbina Szymanski PCP: Care Physician,No Primary Status:REG SDC Y Race: C Location: [place] [address] Anesthesia: Postop Eval I Current Vital Signs Temperature: 97 F Pulse Rate: 71 Blood Pressure: 99/66 Respiratory Rate: 18 Pulse Ox: 97 Assessment Airway patent: Yes Spontaneous unlabored respirations: Yes nausea: No Vomiting: No Anesthesia Complication: No Fluid Hydration Crystalloid volume administer (ml): 800 Total IV fluid infused: 800 Progress Note Anesthesia document: Postop Eval 1 completed: Yes 10/16/23 1345 Date Balbina Gonzalez Signature: Date CC: Signed Normal [facility] MR/[id number] 10-16-2023 MR/POSTOPAN2 [facility] Medical Records Department [address] [place] [address] Anesthesia Postop Eval II 10/16/23 1401 MR#: [id number] Acct: [id number] Name: VESTA HERNANDEZ Rep #: [id number] : 1995 28 From: Lokesh Ballard MD PCP: Care Physician,No Primary Status:REG SDC Y Race: C Location: [place] [address] Anesthesia Postop Eval I Sum Postop Eval Completion status Anesthesia document: Postop Eval 1 completed: Yes Anesthesia Postop Eval I Summary Anesthesia Postop Eval I Summary: Anesthesia Postop Eval I: Assessment Summary Airway patent Yes 10/16/23 13:44 BROADLOOM WEAVER.CSIR Spontaneous unlabored Yes 10/16/23 13:44 BROADLOOM WEAVER.CSIR respirations Mental status nausea No 10/16/23 13:44 BROADLOOM WEAVER.CSIR Vomiting No 10/16/23 13:44 BROADLOOM WEAVER.CSIR Anesthesia Postop Eval I: Fluid Summary Crystalloid volume administer 800 10/16/23 13:44 BROADLOOM WEAVER.CSIR (ml) Colloids volume administered ( ml) Blood Product volume administered (ml) Total IV fluid infused 800 10/16/23 13:44 BROADLOOM WEAVER.CSIR Anesthesia Postop Eval I: Summary Notes Anesthesia Complication No 10/16/23 13:44 BROADLOOM WEAVER.CSIR Anesthesia Complication Comment: Post-operative progress note Anesthesia: Postop Eval II Evaluation Mental status: Awake Pain Level: 0 nausea: No Vomiting: No 10/16/23 1401 Date Lokesh Ballard MD Cosigner Signature: Date CC: Signed Normal [facility] Operative Reporton Operative Report [facility] Medical Records Department [address] [place] [address] Operative Report 10/16/23 1256 MR#: [id number] Acct: [id number] Name: VESTA HERNANDEZ Rep #: [id number] : 1995 28 From: Vera Love MD PCP: Care Physician,No Primary Status[facility] Location: [place] [address] Problems Associated Problem List Diagnoses (1) Missed : Report of Operation Date of Procedure: 10/16/23 Pre-Operative Diagnosis: see problem list Post-Operative Diagnosis: same Surgery/Procedure Performed:: Suction dilation and curettage Description of Surgical Findings:: no FHT present, Nonviable 12 weeks Surgeon: Vera Love practice specialist: None (Dunia Selby at end of procedure to confirm ultrasound full removal of POC) Type of Anesthesia: Local MAC Special Medications: pitocin, methergine, hemabate, TXA, cytotec. Specimen's removed: POC Drains: none Estimated Blood Loss (mL): 400 Fluids Replaced: crystalloid Description of Procedure: Patient was taken to the operating room and placed under MAC local anesthesia. She was prepped and draped in the normal sterile fashion the dorsal lithotomy position. Bladder was drained of clear urine and anterior lip of the cervix was grasped and the uterus sounded to 12cm. Cervix was progressively dilated to allow passage of a 12mm suction curette. Progressive passes were made removing the retained products of conception, ultrasound performed and retained POC still seen, under ultrasound guidance continued d and c performed, and then the cervix was dilated to allow passage of a 14mm currett which successfully removed the final products. ultrasoun dperformed and complete removal of all products confirmed.. Sharp curettage performed throughout the procedure to aid, and then also confirmed complete removal of the retained products. All instruments were removed from the vagina and excellent hemostasis was noted and the patient was taken to recovery in stable condition. proactive medicaiton was given to reduce EBL and aid in uterine contraction. Grafts/Implants Used: none Procedure Start Time: 13:07 Procedure Stop Time: 13:33 Complications none Admit VTE Documentation VTE Present on Admission: No VTE Mechan Device Prophylaxis: SCD's Procedures Urinary/Genital 52xxx-59xxx: 00504 Surg Trtmt missed Ab, 1TM 10/16/23 1336 Cosigner Signature (if applicable): CC: Dr. Vera Love MD; No Primary Care Physician Signed Normal [facility] Surgery Specimen Level Andrew 10-16-2023 Surgery Specimen Level IV ----- Patient Age/Sex Location Account Attending Physician VESTA HERNANDEZ [facility] [id number]. Vera Love MD Specimen: [id number] Received: 10/17/23 Status: CHENG Toure Num: [id number] Spec Type: PROD CONC Subm Dr: Dr. Vera Love MD HEADER OPERATION: D C, suction PRE-OP DIAGNOSIS: Missed TISSUE SUBMITTED: Products of conception MICROSCOPIC DIAGNOSIS Products of conception, dilation and curettage: Immature placental tissue and tissue (products of conception). SJ: 10/18/2023 MICROSCOPIC DESCRIPTION Slides are reviewed. GROSS DESCRIPTION Received in fixative is two containers labeled with the patient's name and designated Products of conception. The specimen consists of multiple fragments of hemorrhagic soft tissue mixed with placental tissue and tissue measuring in aggregate 13.0 x 11.0 x 4.0cm. Wood Technologist tissue are submitted in three cassettes. (cassette 3 contains the tissue). ELLIOTT. 10/17/2023 TC:5 CPT:06606 Patient Age/Sex Location Account Attending Physician VESTA HERNANDEZ 28/F [facility] [id number] Dr. Vera Love MD Signed (signatur e on file) Dr. Jakob Arvizu MD 10/18/23 1033 Normal [facility] Comment on above: Performed By: #### L 501.9520, L506.0400, L100.0100, L506.1000, L503.6030, L503.6550 #### [facility] Laboratory [address] [place], [place], [address] Thyroid Stim Hormone (TSH)on 10-16-2023 TSH 6.140 uIU/mL High 0.358-3.740 [facility] Comment on above: Performed By: #### L 501.9520, L506.0400, L100.0100, L506.1000, L503.6030, L503.6550 #### [facility] Laboratory [address] [place], [place], [address] Type AND Screen - PAT ONLYon 10-16-2023 Ab SCREEN GEL Negative Normal [facility] Comment on above: Order Comment: Surge ry Date: 10/16/23Reason for Laboratory Test [id number] D C Performed By: #### L 501.9520, L506.0400, L100.0100, L506.1000, L503.6030, L503.6550 #### [facility] Laboratory [address] [place], [place], [address] Station [employer] Agent Office Visit Reporton 10-12-2023 Station [employer]gage Agent Office Visit Report [facility] [address], [address] [place] [address] OFFICE VISIT Date of Service: 10/12/23 MR#: [id number] Acct: [id number] Name: VESTA HERNANDEZ Rep #: [id number] : 1995 Provider: FRANDY Peterson ams Age/Sex: 28/F Location: [facility] [place] Status: Signed with Addenda ADDENDUM by FRANDY Dudley on 10/16/23 at 1305 Assessment and Plan Assessment and Plan (1) Family history of autism: Status: Acute Comment: Cousin on Mothers side of family (2) Varicose vein of leg: Status: Acute Comment: left leg above the knee (3) Supervision of high-risk : Status: Acute Comment: , CODY 04/17/24, PC Christian Hein Kynzie, Dawson BF Daniel (4) : Status: Acute Qualifiers: Weeks of gestation: 13 weeks Qualified Code(s): Z3A.13 - 13 weeks gestation of Comment: NEEDS pap and GCC at 2nd visit. See note. declines NIPT (5) Early stage of : Status: Acute Orders: Orders PAP I-G w/rfx hrHPV-Aptima 10/12/23 Z12.4 - Encounter for screening for malignant neoplasm of cervix ROS Const Const: Negative for fatigue, weakness or body ache ENT ENT: Negative for headache(s) or dizziness Cardio Chest Pain: No Resp Respiratory: Negative for SOB with activity or Cough GI GI: Negative nausea, vomiting or heartburn : Negative for abnormal vaginal bleeding Neuro Neuro: Negative for dizziness, lightheadedness, headache(s) or weakness Endo Endo: Negative for fatigue Psych Psych: Negative for anxiety or depression Physical Exam Const alert, oriented x3, no apparent distress, average body habitus, no limitations, healthy appearing and well nourished General Appearance: cooperative and well kempt Neck full ROM Resp normal respiratory effort, normal air movement and no retractions Effort and Inspection: able to speak in complete sentences GI normal to inspection, nondistended, normoactive bowel sounds, soft to palpation and non-tender Palpation: soft; Negative for tender or guarding Rectal Exam: visual inspection normal external exam normal, appearance of the vagina normal and appearance of the cervix normal External Female Exam: normal appearance of the urethra Speculum Exam - Cervix: Negative for cervical os open OB / External Speculum: external exam normal; Negative for cervical os open or vaginal bleeding Back/Spine normal ROM Extremity normal to inspection, full ROM and no calf tenderness Skin no rashes or lesions noted General Skin Exam: no breakdown, elasticity normal and turgor normal Lesions: no lesions Rashes: no rashes Neuro oriented x3 Sensorium / Orientation: awake and alert Speech: speech normal Gait (Neuro): normal gait Psych mental status grossly normal, thought process normal, cooperative, affect normal and speech normal Appearance: grossly normal and appropriate Attitude: calm and engaged Activity / Motor Behavior: appropriate eye contact Speech: normal speech Mood Affect: euthymic mood Thought Process: normal thought process Thought Content: normal thought content Attention / Concentration: attention grossly intact Memory / Cognition: memory grossly intact Insight: insight good Judgement: judgement good 10/16/23 1305 Date America Dudley CNM cc: * Signed Intake Vital Signs 08/16/23 13:50 09/14/23 12:48 10/12/23 10:05 10/12/23 10:06 Height 5 ft 6 in 5 ft 6 in 5 ft 6 in 5 ft 6 in Weight: 146 lb BMI 23.6 BP 109/73 Intake Visit Reasons: 12wk OB Senior Escrow Officer Required: No Is patient in pain?: No Allergies No Known Allergies Allergy (Verified 10/12/23 10:06) Medications ???Medication ???Instructions ???Recorded ???Confirmed ???Type multivitamin no.47-iron fum 27 cap PO 08/22/23 10/12/23 History mg-folate no.1 1 mg-dha 300 mg capsule (PNV-DHA) valacyclovir 500 mg tablet 500 mg PO BID PRN cold sores 08/22/23 10/12/23 History (Valtrex) Last Menstrual Period: 07/12/23 Zika: Zika virus screening: Negative : No Have you fallen in the past year?: No PFSH PFSH Medical History (spontaneous vaginal delivery) Kidney stones Surgical History S/P foot surgery, right History of laparoscopic appendectomy ( 07/19/19) Family History Father Cancer, Onset Age: 57 Prostate ca Hypertension Grandfather Cancer, Onset Age: 70 Maternal Prostate Cancer Grandmother COPD (chronic obstructive pulmonary disease) Maternal Mother Hypertension Sister Fatty liver due to alcoholism Social History adopted: N (more content not included)... Normal [facility] Urine Cultureon 09-15-2023 URC Culture exhibits no growth. Normal [facility] Comment on above: Performed By: #### L 501.9520, L506.0400, L100.0100, L506.1000, L503.6030, L503.6550 #### [facility] Laboratory [address] [place], [address] Station Baggage Agent Office Visit Reporton 09-14-2023 Station Baggage Agent Office Visit Report [facility] [address] [place], [place] [address] OFFICE VISIT Date of Service: 09/14/23 MR#: [id number] Acct: [id number] Name: VESTA HERNANDEZ Rep #: [id number] : 1995 Provider: FRANDY Peterson ams Age/Sex: 28/F Location: [facility] [place] Status: Signed Intake Vital Signs 08/16/23 13:50 09/14/23 12:46 09/14/23 12:48 Height 5 ft 6 in 5 ft 6 in 5 ft 6 in Weight: 146 lb BMI 23.6 BP 100/69 Intake Visit Reasons: New OB, LMP 07/11, CODY 04/17, US @ [facility] Senior Escrow Officer Required: No Is patient in pain?: No Allergies No Known Allergies Allergy (Verified 09/14/23 12:47) Medications ???Medication ???Instructions ???Recorded ???Confirmed ???Type multivitamin no.47-iron fum 27 cap PO 08/22/23 08/22/23 History mg-folate no.1 1 mg-dha 300 mg capsule (PNV-DHA) valacyclovir 500 mg tablet 500 mg PO BID PRN cold sores 08/22/23 08/22/23 History (Valtrex) Last Menstrual Period: 07/12/23 Zika: Zika virus screening: Negative [facility] Medical History (spontaneous vaginal delivery) Kidney stones Surgical History S/P foot surgery, right History of laparoscopic appendectomy ( 07/19/19) Family History Father Cancer, Onset Age: 57 Prostate ca Hypertension Grandfather Cancer, Onset Age: 70 Maternal Prostate Cancer Grandmother COPD (chronic obstructive pulmonary disease) Maternal Mother Hypertension Sister Fatty liver due to alcoholism Social History adopted: No household members: significant other and children number of children: 4 current occupational status: unemployed current occupation: [employer] pets and animals: No history of recent travel: No sexually active: Yes Smoking Status: Never smoker alcohol intake: never substance use type: does not use well-balanced diet: daily or most days caffeine: Yes Type: carbonated beverages Number of servings: 1 eating out: 1-3 times/week during the past year weight has: remained stable what type of physical activity do you participate in: walking frequency: 5-6 times per week duration: 30-45 minutes/day andie/congregational: None seatbelt use: always do you feel safe at home: Yes additional 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: JA[employer]cycle [employer] History 5 Elective abortions Hx Para 4 Spontaneous abortions Hx # Term Pregnancies Ectopic pregnancies Hx # Pregnancies Multiple births # of living children 4 Past Pregnancies Del. Date Name GA/Weeks Outcome Route Bth Weight Infant Gen Labor Lgth Anesthesia Del Locatn Provider FOB 03/23/14 Melvina 40 live - full term 8#1oz Female epidural [facility] Paul 03/03/18 Christian 39 live - full term 8#13oz Male epidural [facility] Dr. Elio Hilario 10/06/19 Skip 38 live - full term 6#3oz Female epidural [facility] Richie Hilraio 05/23/21 Neville 38 live - full term 8#5oz Male epidural [facility] Richie Hilario HPI New OB, LMP 07/11, CODY 04/17, US @ [facility] Details: VESTA HERNANDEZ is a 28 year old who presents for New OB visit. OB Visit CODY Calculator Estimated Delivery Date Method Current WG Current Estimate 04/17/24 LMP (Certain) 9w 1d Other Estimates 04/12/24 Ultrasound #1 9w 6d Comments: HIV: Urine Culture: Sequential Screen: NIPT Screen: Estimated Due Date: 04/17/24 Expected Delivery Route/Plan Labor Preferences- CB/BF classes: [] labor support person: [] labor intervention preferences: [] pain management options preferred: [] cut cord/dad catch: [] : [] PP control planned: [] discussed possible routes of delivery and associated risks: [] special requests: [] Specific Issue/Plans Covid status: [] Flu vaccine: [] Tdap vaccine: [] Rhogam: [] LARC form signed: [] Problem list reviewed and updated with the most current plan of care details and appropriate orders placed. Relevant counseling for the gestational age provided. Continue routine care and follow up unless otherwise noted in visit notes/problem list details Initial Weight: Not Recorded Date -???-???-???-???-?? ?-???-???-???-???-? ??-???-???- EGA Weight BP Urine Prot -???-???-???-???-?? ?-???-???-???-???-? ??-???-???- Glucose FHR FuHt Pres Dilation -???-???-???-???-?? ?-???-???-???-???-? ??-???-???- Effaced St Visit Note 09/14/23 -???-???-???-???-?? ?-???-???-???-???-? ??-???-???- 9w 1d 146 lb 100/69 -???-???-???-???-?? ?-???-???-???-???-? ??-???-???- -???-???-???-???-?? ?-???-?? (more content not included)... Normal [facility] Transvaginal w/Preg USon Transvaginal w/Preg US [facility] Imaging Services [address] [place], [place] [address] Transvaginal w/Preg US MR#: [id number] Acct: [id number] Name: VESTA HERNANDEZ Rep #: [id number] : 1995 F 28 From: Anselmo Carmichael MD PCP: Care Physician,No Primary Status: REG CLI Study: Transvaginal w/Preg US Date of Exam: 09/12/23 Exam# [id number] Ordering Dr: America Dudley CNM -[id number] STUDY: FIRST TRIMESTER OBSTETRICAL ULTRASOUND REASON FOR EXAM: Female, 28 years old viability LMP: 07/12/2023 TECHNIQUE: Transabdominal TECHNICAL QUALITY: Adequate. PRIOR ULTRASOUND: None. FINDINGS: There is visualization of a single gestational sac in a normal intrauterine position. The mean sac diameter (MSD) measures 44 mm, indicating an estimated gestational age (EGA) of 9 weeks, 6 days. The gestational sac shape is within normal limits. There is a visualized yolk sac. The yolk sac measures 4 mm. The placenta is non-visualized. There is visualization of a live embryo. The crown-rump length (CRL) measures 26 mm, indicating an estimated gestational age (EGA) of 9 weeks, 1 days. There is demonstrated cardiac activity with a heart rate of 175 bpm. The estimated gestation age (EGA) by LMP is 8 weeks, 6 days. The estimated date of delivery (CODY) by LMP is 04/17/2024. The estimated gestation age (EGA) by US is 9 weeks, 4 days. The estimated date of delivery (CODY) by US is 04/12/2024. The uterus measures 12.5 x 8.5 x 9.5 cm. There is no demonstrated uterine fibroid. The cervix is closed. The right ovary measures 3.8 x 2.7 x 3.1 cm. There is no right ovarian cyst. There is no visualized right adnexal mass or complex lesion. The left ovary measures 2.3 x 1.0 x 1.3 cm. There is no left ovarian cyst. There is no visualized left adnexal mass or complex lesion. There is no fluid in the cul de sac. US/Transvaginal w/Preg US IMPRESSION: Living intrauterine of 9 weeks 4 days as described above. Electronically Signed: Anselmo Carmcihael MD at 10:57 EDT , CC: FRANDY Dudley; No Primary Care Physician Dispatcher Relay: Signed Normal [facility] Absolute lymphocyte counton 05-23-2021 Lymphocytes Auto (Unsp spec) [#/Vol] 2.88 10*3/uL 0.83-4.51 [facility] Work Phone: Basophil percentageon 2021 Basophils/100 WBC (Bld) 0.5 % 0-1 [facility] Work Phone: Eosinophils/100 WBC (Bld) 0.7 % 0-5 [facility] Work Phone: Neutrophils (Bld) [#/Vol] 6.8 10*3/uL 2.0-7.7 [facility] Work Phone: Neutrophils/100 WBC (Bld) 64.7 % 47-70 [facility] Work Phone: WBC (Bld) [#/Vol] 10.6 10*3/uL 4.4-11.0 [facility] Work Phone: Blood erythrocytes count (nu mber/volume)on 05-23-2021 RBC (Bld) [#/Vol] 3.89 10*6/uL 4.2-5.4 [facility] Work Phone: [phone] Blood hemoglobin measurement (mass/volume)on 05-23-2021 Hemoglobin (Bld) [Mass/Vol] 12.5 g/dL 12.0-15.0 [facility] Work Phone: [phone] Blood lymphocytes/100 leukoc yteson 05-23-2021 Lymphocytes/100 WBC (Bld) 27.2 % 19-41 [facility] Work Phone: [phone] Blood monocytes/100 leukocyt eson 05-23-2021 Monocytes/100 WBC (Bld) 6.0 % 0-10 [facility] Work Phone: [phone] Blood platelet mean volumeon 05-23-2021 Platelet mean volume (Bld) [Entitic vol] 11.5 fL 6.2-12.0 [facility] Work Phone: [phone] Determination of erythrocyte mean corpuscular volume (MCV)on 05-23-2021 MCV (RBC) [Entitic vol] 93.3 fL 81-99 [facility] Work Phone: [phone] Hematocrit Auto (Bld) [Volum e fraction]on 05-23-2021 Hematocrit (Bld) [Volume fraction] 36.3 % 37-47 [facility] Work Phone: Laboratory - Hematology and Cell countson 05-23-2021 Erythrocyte distribution width (RBC) [Entitic vol] 50.4 fL 35.1-43.9 [facility] Work Phone: [phone] Erythrocyte distribution width (RBC) [Ratio] 14.8 % 11.6-14.6 [facility] Work Phone: [phone] Immature granulocytes/100 WBC (Bld) 0.900 % 0.0-0.9 [facility] Work Phone: Comment on above: IG% - Immature Granu locytes (promyelocytes, myelocytes and metamyelocytes) > 1% indicates that a LEFT SHIFT is Present. MCH (RBC) [Entitic mass] 32.1 pg 27.0-32.0 [facility] Work Phone: Nucleated RBC/100 WBC (Bld) [Ratio] 0 % 0-5 [facility] Work Phone: [phone] MCHC Auto (RBC) [Mass/Vol]on 05-23-2021 MCHC (RBC) [Mass/Vol] 34.4 g/dL 32-36 [facility] Work Phone: [phone] No Panel Informationon 05-23 Vaginal Amniotic Fluid Detection Positive Negative [facility] Work Phone: Comment on above: Amniotic fluid prese nt indicates rupture of Membranes. RESULTS CALLED TO Ninfa KRUGER RN () 05/23/21 0254 Chet Mack.REPORT READ BACK BY SAME . Platelets bldon 05-23-2021 Platelets (Bld) [#/Vol] 162 10*3/uL 150-450 [facility] Work Phone: No Panel Informationon 05-11 Group B Streptococcus Culture Group B Beta Streptococcus is not isolated. [facility] Work Phone: Basophil percentageon 2021 WBC (Bld) [#/Vol] 10.2 10*3/uL 4.4-11.0 [facility] Work Phone: [phone] Blood erythrocytes count (nu mber/volume)on 03-01-2021 RBC (Bld) [#/Vol] 3.59 10*6/uL 4.2-5.4 [facility] Work Phone: [phone] Blood hemoglobin measurement (mass/volume)on 03-01-2021 Hemoglobin (Bld) [Mass/Vol] 11.6 g/dL 12.0-15.0 [facility] Work Phone: [phone] Blood platelet mean volumeon 03-01-2021 Platelet mean volume (Bld) [Entitic vol] 11.1 fL 6.2-12.0 [facility] Work Phone: [phone] Determination of erythrocyte mean corpuscular volume (MCV)on 03-01-2021 MCV (RBC) [Entitic vol] 95.8 fL 81-99 [facility] Work Phone: [phone] Gestational diabetes screen 1-hour screen with 50g oral glucose loadon 03-01-2021 Glucose 1 Hr post 50 g glucose PO [Mass/Vol] 75 mg/dL 70-140 [facility] Work Phone: [phone] Hematocrit Auto (Bld) [Volum e fraction]on 03-01-2021 Hematocrit (Bld) [Volume fraction] 34.4 % 37-47 [facility] Work Phone: Laboratory - Hematology and Cell countson 03-01-2021 Erythrocyte distribution width (RBC) [Entitic vol] 49.0 fL 35.1-43.9 [facility] Work Phone: [phone] Erythrocyte distribution width (RBC) [Ratio] 13.8 % 11.6-14.6 [facility] Work Phone: [phone] MCH (RBC) [Entitic mass] 32.3 pg 27.0-32.0 [facility] Work Phone: MCHC Auto (RBC) [Mass/Vol]on 03-01-2021 MCHC (RBC) [Mass/Vol] 33.7 g/dL 32-36 [facility] Work Phone: [phone] Platelets bldon 03-01-2021 Platelets (Bld) [#/Vol] 193 10*3/uL 150-450 [facility] Work Phone: Vital Signs Date Time Vital Sign Value Performing Clinician Facility 08-23-2024 14:28-0400 Body height 167.[address] Mary Nunn MD Work Phone: [facility] 08-23-2024 14:28-0400 Body mass index (BMI) [Ratio] 25.9 kg/m2 Dr. Mary Nunn MD Work Phone: [facility] 08-23-2024 14:28-040 Body weight 72.[address] Mary Nunn MD Work Phone: [facility] 08-23-2024 14:28-0400 Diastolic blood pressure 85 mm[Hg] Dr. Mary Nunn MD Work Phone: [facility] 08-23-2024 14:28-0400 Systolic blood pressure 127 mm[Hg] Dr. Mary Nunn MD Work Phone: [facility] 08-09-2024 14:10-0400 Body height 167.64 cm No Primary Care Physician [facility] 08-09-2024 14:10-0400 Body mass index (BMI) [Ratio] 25.4 kg/m2 No Primary Care Physician [facility] 08-09-2024 14:10-0400 Body weight 71.66 kg No Primary Care Physician [facility] 08-09-2024 14:10-0400 Diastolic blood pressure 84 mm[Hg] No Primary Care Physician [facility] 08-09-2024 14:10-0400 Heart rate 105 /min No Primary Care Physician [facility] 08-09-2024 14:10-0400 SaO2% (BldA) [Mass fraction] 94 % No Primary Care Physician [facility] 08-09-2024 14:10-0400 Systolic blood pressure 114 mm[Hg] No Primary Care Physician [facility] 07-24-2024 14:30-0400 Body height 167.64 cm No Primary Care Physician [facility] 07-24-2024 14:29-0400 Body mass index (BMI) [Ratio] 25.4 kg/m2 No Primary Care Physician [facility] 07-24-2024 14:29-0400 Body weight 71.38 kg No Primary Care Physician [facility] 07-24-2024 14:29-0400 Diastolic blood pressure 81 mm[Hg] No Primary Care Physician [facility] 07-24-2024 14:29-0400 Systolic blood pressure 121 mm[Hg] No Primary Care Physician [facility] 07-02-2024 18:35-0400 Body temperature 98.91 [degF] Serg Grubbs APRN.CNP Work Phone: [facility] 07-02-2024 18:35-0400 Body weight 71.22 kg Serg Grubbs APRN.[employer] INST[employer]ER Work Phone: [facility] 07-02-2024 18:35-0400 Diastolic blood pressure 76 mm[Hg] Serg Grubbs APRN.[employer]AR PH[employer]OLTAIC INSTALLER Work Phone: [facility] 07-02-2024 18:35-0400 Heart rate 95 /min Serg Grubbs FOREST FIRE CONTROL OFFICER.[employer]OL[employer]IC INSTALLER Work Phone: [facility] 07-02-2024 18:35-0400 Respiratory rate 22 /min Serg Grubbs APRN.[employer]IC INSTALLER Work Phone: [facility] 07-02-2024 18:35-0400 SaO2% (BldA) [Mass fraction] 97 % Serg Grubbs APRN.[employer]AR [employer]OL[employer]IC INSTALLER Work Phone: [facility] 07-02-2024 18:35-0400 Systolic blood pressure 110 mm[Hg] Serg Grubbs APRN.[employer]IC INSTALLER Work Phone: [facility] 06-27-2024 15:02-0400 Body mass index (BMI) [Ratio] 25 kg/m2 No Primary Care Physician [facility] 06-27-2024 15:02-0400 Body weight 70.42 kg No Primary Care Physician [facility] 06-27-2024 15:02-0400 Diastolic blood pressure 83 mm[Hg] No Primary Care Physician [facility] 06-27-2024 15:02-0400 Systolic blood pressure 119 mm[Hg] No Primary Care Physician [facility] 05-30-2024 13:01-0400 Body height 167.64 cm No Primary Care Physician [facility] 05-30-2024 13:01-0400 Body mass index (BMI) [Ratio] 26.3 kg/m2 No Primary Care Physician [facility] 05-30-2024 13:01-0400 Body weight 74.04 kg No Primary Care Physician [facility] 05-30-2024 13:01-0400 Diastolic blood pressure 81 mm[Hg] No Primary Care Physician [facility] 05-30-2024 13:01-0400 Systolic blood pressure 128 mm[Hg] No Primary Care Physician [facility] 05-27-2024 17:03-0400 Body temperature 97.9 [degF] Serg Grubbs APRN.[employer] INSTALLER Work Phone: [facility] 05-27-2024 17:03-0400 Body weight 74.75 kg Serg Grubbs APRN.[employer]AR [employer]IC INSTALLER Work Phone: [facility] 05-27-2024 17:03-0400 Diastolic blood pressure 71 mm[Hg] Serg Grubbs APRN.[employer]IC INSTALLER Work Phone: [facility] 05-27-2024 17:03-0400 Heart rate 93 /min Serg Grubbs APRN.[employer]AR [employer]OL[employer]IC INSTALLER Work Phone: [facility] 05-27-2024 17:03-0400 Respiratory rate 18 /min Serg Grubbs APRN.[employer]AR PH[employer]OVOL[employer]IC INSTALLER Work Phone: [facility] 05-27-2024 17:03-0400 Systolic blood pressure 104 mm[Hg] Serg Grubbs APRN.[employer]IC INSTALLER Work Phone: [facility] 04-15-2024 09:05-0500 Body mass index (BMI) [Ratio] 26.9 kg/m2 No Primary Care Physician [facility] 04-15-2024 09:05-0500 Body temperature 98.2 [degF] No Primary Care Physician [facility] 04-15-2024 09:05-0500 Body weight 75.74 kg No Primary Care Physician [facility] 04-15-2024 09:05-0500 Diastolic blood pressure 74 mm[Hg] No Primary Care Physician [facility] 04-15-2024 09:05-0500 Heart rate 93 /min No Primary Care Physician [facility] 04-15-2024 09:05-0500 Respiratory rate 16 /min No Primary Care Physician [facility] 04-15-2024 09:05-0500 SaO2% (BldA) [Mass fraction] 97 % No Primary Care Physician [facility] 04-15-2024 09:05-0500 Systolic blood pressure 124 mm[Hg] No Primary Care Physician [facility] 03-29-2024 05:01-0500 Body temperature 98 [degF] No Primary Care Physician [facility] 03-29-2024 05:01-0500 Diastolic blood pressure 85 mm[Hg] No Primary Care Physician [facility] 03-29-2024 05:01-0500 Heart rate 94 /min No Primary Care Physician [facility] 03-29-2024 05:01-0500 Respiratory rate 16 /min No Primary Care Physician [facility] 03-29-2024 05:01-0500 SaO2% (BldA) [Mass fraction] 100 % No Primary Care Physician [facility] 03-29-2024 05:01-0500 Systolic blood pressure 116 mm[Hg] No Primary Care Physician [facility] 03-29-2024 03:04-0500 Body mass index (BMI) [Ratio] 26.3 kg/m2 No Primary Care Physician [facility] 03-29-2024 03:04-0500 Body weight 73.9 kg No Primary Care Physician [facility] 12-24-2022 16:20-0400 Body temperature 98.01 [degF] Bobby Lorenzo MD Work Phone: [facility] 12-24-2022 16:20-0400 Body weight 63.5 kg Bobby Lorenzo MD Work Phone: [facility] 12-24-2022 16:20-0400 Diastolic blood pressure 81 mm[Hg] Bobby Lorenzo MD Work Phone: [facility] 12-24-2022 16:20-0400 Heart rate 81 /min Bobby Lorenzo MD Work Phone: [facility] 12-24-2022 16:20-0400 Respiratory rate 19 /min Bobby Lorenzo MD Work Phone: [facility] 12-24-2022 16:20-0400 SaO2% (BldA) [Mass fraction] 100 % Bobby Lorenzo MD Work Phone: [facility] 12-24-2022 16:20-0400 Systolic blood pressure 118 mm[Hg] Bobby Lorenzo MD Work Phone: [facility] 05-19-2022 19:10-0400 Body temperature 100.6 [degF] Karina Garcia [employer]OL OFFICER.[employer]IC INSTALLER Work Phone: [facility] 05-19-2022 19:10-0400 Body weight 68.04 kg Karina Wallace [employer]EST [employer]OL OFFICER.[employer]IC INSTALLER Work Phone: [facility] 05-19-2022 19:10-0400 Diastolic blood pressure 99 mm[Hg] Karina Wallace [employer]EST [employer]OL OFFICER.[employer]IC INSTALLER Work Phone: [facility] 05-19-2022 19:10-0400 Heart rate 105 /min Karina Wallace FOREST [employer] CONTROL OFFICER.[employer]IC INSTALLER Work Phone: [facility] 05-19-2022 19:10-0400 Respiratory rate 16 /min Karina Wallace FOREST [employer]OL OFFICER.[employer]OL[employer]IC INSTALLER Work Phone: [facility] 05-19-2022 19:10-0400 SaO2% (BldA) [Mass fraction] 100 % Karina Wallace FOREST [employer]OL OFFICER.[employer]AR [employer]OVOLTAIC INSTALLER Work Phone: [facility] 05-19-2022 19:10-0400 Systolic blood pressure 133 mm[Hg] Karina Wallace FOREST FI[employer] CONTROL OFFICER.[employer]AR [employer]OVOL[employer]IC INSTALLER Work Phone: [facility] 05-15-2022 14:00-0400 Body temperature 99.19 [degF] Steve Snell MD Work Phone: [facility] 05-15-2022 14:00-0400 Body weight 68.49 kg Steve Snell MD Work Phone: [facility] 05-15-2022 14:00-0400 Diastolic blood pressure 90 mm[Hg] Steve Snell MD Work Phone: [facility] 05-15-2022 14:00-0400 Heart rate 106 /min Steve Snell MD Work Phone: [facility] 05-15-2022 14:00-0400 Respiratory rate 18 /min Steve Snell MD Work Phone: [facility] 05-15-2022 14:00-0400 SaO2% (BldA) [Mass fraction] 98 % Steve Snell MD Work Phone: [facility] 05-15-2022 14:00-0400 Systolic blood pressure 120 mm[Hg] Steve Snell MD Work Phone: [facility] 05-24-2021 07:40-0400 Body temperature 97.4 [degF] No Primary Care Physician [facility] Work Phone: 05-24-2021 07:40-0400 Diastolic blood pressure 84 mm[Hg] No Primary Care Physician [facility] Work Phone: 05-24-2021 07:40-0400 Heart rate 70 /min No Primary Care Physician [facility] Work Phone: 05-24-2021 07:40-0400 Respiratory rate 17 /min No Primary Care Physician [facility] Work Phone: 05-24-2021 07:40-0400 Systolic blood pressure 117 mm[Hg] No Primary Care Physician [facility] Work Phone: 05-23-2021 12:04-0400 SaO2% (BldA) [Mass fraction] 99 % No Primary Care Physician [facility] Work Phone: 05-23-2021 02:05-0400 Body height 167.64 cm No Primary Care Physician [facility] Work Phone: 05-23-2021 02:05-0400 Body mass index (BMI) [Ratio] 26.9 kg/m2 No Primary Care Physician [facility] Work Phone: 05-23-2021 02:05-0400 Body weight 75.74 kg No Primary Care Physician [facility] Work Phone: Encounters Encounter Date Encounter Type Care Provider Facility Start: 08-23-2024 End: 08-23-2024 Patient encounter procedure Devora Go [facility] Work Phone: Start: 08-23-2024 End: 08-23-2024 ambulatory Mary Nunn Facility:[facility] Start: 08-21-2024 End: 08-21-2024 ambulatory JOAQUIN AKBAR [facility] Start: 08-09-2024 End: 08-09-[address] Meliton Herr MD -[facility] Work Phone: Start: 08-09-2024 End: 08-09-2024 ambulatory No Primary Care Physician [facility] Work Phone: Start: 08-05-2024 End: 08-05-2024 ambulatory MD [facility] Start: 07-24-2024 End: 07-24-[address] Amelia Wong DO -[facility] Work Phone: Start: 07-24-2024 End: 07-24-2024 ambulatory No Primary Care Physician [facility] Work Phone: Start: 07-24-2024 End: 07-24-2024 ambulatory Amelia Wong Facility:[facility] Start: 07-02-2024 End: 07-02-2024 Office outpatient visit 15 minutes Serg Grubbs APRN.[facility] Work Phone: [facility] Comment on above: Acute non-recurrent frontal sinusitis (Primary Dx); 14 weeks gestation of (HCC) Start: 07-02-2024 End: 07-02-2024 ambulatory MARY G ARLINE Facility:[id number] Start: 06-27-2024 End: 06-27-2024 Patient encounter procedure America Dudley CNM -[facility] Work Phone: Start: 06-27-2024 End: 06-27-2024 ambulatory Mary [place] Facility:[facility] Start: 06-13-2024 End: 06-13-2024 ambulatory No Primary Care Physician [facility] Work Phone: Start: 06-13-2024 End: 06-13-2024 Patient encounter procedure Sheri Hernandes NP-C -Lab, [facility] Start: 06-13-2024 End: 06-13-2024 ambulatory Mary [place] Facility:[facility] Start: 05-30-2024 End: 05-30-2024 ambulatory No Primary Care Physician [facility] Work Phone: Start: 05-30-2024 End: 05-30-2024 Patient encounter procedure America Dudley CNM -Laboratory, Specimen Work Phone: Start: 05-30-2024 End: 05-30-2024 Patient encounter procedure America Dudley CNM -[facility] Work Phone: Start: 05-30-2024 End: 05-30-2024 ambulatory Mary Arline Facility:[facility] Start: 05-30-2024 End: 05-30-2024 ambulatory Mary [place] Facility:[facility] Start: 05-27-2024 End: 05-27-2024 ambulatory MARY G ARLINE Facility:[id number] Start: 05-27-2024 End: 05-27-2024 Office outpatient visit 15 minutes Serg Grubbs APRN.[employer] INSTALLER Work Phone: [facility] Comment on above: Acute otitis media, left (Primary Dx) Start: 04-19-2024 End: 04-19-[address] Mary Nunn MD -Ultrasound, [facility] Work Phone: Start: 04-19-2024 End: 04-19-2024 ambulatory Mary [place] Facility:[facility] Start: 04-15-2024 End: 04-15-[address] Mary Nunn MD -[facility] Work Phone: Start: 04-15-2024 End: 04-15-2024 ambulatory No Primary Care Physician Facility:[facility] Start: 04-15-2024 End: 04-15-2024 ambulatory Mary Arline Facility:[facility] Start: 03-29-2024 End: 03-29-2024 Emergency department patient visit Dr. Chas Contreras -Emergency Department Work Phone: Start: 02-09-2024 End: 02-09-[address] Vera Love MD -Laboratory Work Phone: Start: 02-09-2024 End: 02-09-2024 ambulatory No Primary Care Physician Facility:[facility] Start: 11-30-2023 Encounter for other preprocedural examination Vera Love [facility] Start: 11-01-2023 End: 11-01-2023 ambulatory No Primary Care Physician Facility:[facility] Start: 11-01-2023 End: 11-01-2023 ambulatory No Primary Care Physician Facility:[facility] Start: 10-19-2023 End: 10-19-2023 ambulatory No Primary Care Physician Facility:[facility] Start: 10-16-2023 ambulatory No Primary Car e Physician Facility:[facility] Start: 10-16-2023 End: 10-16-2023 ambulatory No Primary Care Physician Facility:[facility] Start: 10-12-2023 End: 10-12-2023 ambulatory No Primary Care Physician Facility:[facility] Start: 10-12-2023 End: 10-12-2023 ambulatory No Primary Care Physician Facility:[facility] Start: 09-14-2023 End: 09-14-2023 ambulatory No Primary Care Physician Facility:[facility] Start: 09-14-2023 End: 09-14-2023 ambulatory No Primary Care Physician Facility:[facility] Start: 09-12-2023 End: 09-12-2023 ambulatory No Primary Care Physician Facility:[facility] Start: 12-24-2022 End: 12-24-2022 Patient encounter procedure Bobby Lorenzo MD Work Phone: [facility] Comment on above: URI, acute (Primary Dx) Start: 05-19-2022 End: 05-19-2022 Patient encounter procedure Karina Garcia FOR[employer]OL OFFICER.[employer]AR [employer]OVOLTAIC INSTALLER Work Phone: [facility] Comment on above: Bacterial sinusitis (Primary Dx) Start: 05-15-2022 End: 05-15-2022 Office outpatient new 30 minutes Steve Snell MD Work Phone: [facility] Comment on above: Viral illness (Prima ry Dx); Sinus congestion; Eustachian tube dysfunction, bilateral Start: 05-23-2021 End: 05-24-2021 Evaluation and management of inpatient No Primary Care Physician [facility] Start: 05-11-2021 End: 05-11-2021 Patient encounter procedure No Primary Care Physician [facility]-Laboratory, Specimen Start: 04-29-2021 Non-patient / Non-visit No Jammie barby Care Physician [facility] Start: 04-29-2021 End: 04-29-2021 Patient encounter procedure No Primary Care Physician [facility] Start: 03-01-2021 End: 03-01-2021 Patient encounter procedure No Primary Care Physician [facility], [place] supervisor sample Off Start: 06-10-2017 Emergency department patient visit [facility] Procedures Date Procedure Procedure Detail Performing Clinician Start: 06-13-2024 End: 06-13-2024 Procedure No Primary Care Physician Comment on above: Test Ordered: [id number] TSH Receptor Antibody (TBII)TSH Receptor Antibody (TBII) <0.3 U/L Reference Range: .Reference Range:Antibody Titer:<1.0 U/L = Negative1.1 - 1.5 U/L = Equivocal>1.5 U/L = PositivePerformed at: [facility] [id number] [place] [address] [id number] Director: Renato Bates MD, Phone: [phone] at: [facility] [address] [id number] Director: Gopi Covington PhD, Phone: [phone] Start: 06-13-2024 Hepatitis C antibody measurement No Primary Care Physician Comment on above: Reactive: Presumptiv e evidence of antibodies to HCV. Follow CDC recommendations for supplemental testing.Non-Reactive: Antibodies to HCV were not detected; does not exclude the possibility of exposure to HCVReactive Results are presumptive evidence of antibodies to HCV. Follow CDC recommendations for supplemental testing.Order confirmation testing: HCV Quant by PCR testing - HCVPCR #[id number] Non Reactive: < 0.8 Equivocal: >/= 0.8 to < 1.0 Reactive: >/= 1.0The CDC requires that a reactive/equivocal HCV antibody result be sent out for confirmation. HCV Quant by PCR testing. Start: 06-13-2024 Rubella IgG measurement No Primary Care Physician Comment on above: Antibody Result: Int erpretationNon-Reactive: Non- ImmuneReactive: ImmuneThe following results were obtained with the [employer] Rubella IgG assay. Results from assays of other manufacturers cannot be used interchangeably. Start: 06-13-2024 Serologic test for syphilis No Primary Care Physician Start: 05-30-2024 Urine culture No Primar y Care Physician Start: 04-19-2024 US scan of thyroid No [facility] Care Physician Start: 04-15-2024 Total iron binding c apacity measurement No Primary Care Physician Start: 04-15-2024 Vitamin D, 25-hydrox y measurement No Primary Care Physician Comment on above: Vitamin D 25(OH) Sta tus Range Deficiency <20 ng/mL (50nmol/L) Insufficiency 20 - 30 ng/mL (50 - 75 nmol/L) Sufficiency 30 - 100 ng/mL (75 - 250 nmol/L) Toxicity >100 ng/mL (>250 nmol/L) Start: 03-29-2024 CT of abdomen and pe lvis without contrast No Primary Care Physician Start: 03-29-2024 Estimated creatinine clearance No Primary Care Physician Start: 03-29-2024 Measurement of renal function No Primary Care Physician Comment on above: GFR Calc Start: 03-29-2024 Urnls dip stick/tabl et reagent auto microscopy No Primary Care Physician Start: 05-23-2021 End: 05-23-2021 Viral antigen assay No Primary Care Physician Start: 05-11-2021 Group B Streptococcus Culture No Primary Care Physician Plan of Treatment Date Care Activity Detail Author Start: 11-03-2024 RSV Vaccine (1 - Risk 1-dose series) RSV Vaccine (1 - Risk 1-dose series) [facility] Start: 10-28-2024 Influenza vaccination Influenza Vaccine (Season Ended) [facility] Start: 08-23-2024 Thyroperoxidase Ab [Units/volume] in Serum or Plasma [facility] Start: 08-23-2024 T4 free measurement [facility] Start: 08-23-2024 Thyroid stimulating hormone measurement [facility] Start: 08-23-2024 Triiodothyronine, free measurement [facility] Start: 07-24-2024 T4 free measurement [facility] Start: 06-13-2024 Procedure [facility] Start: 10-29-2023 Covid-19 Vaccine ( season) Covid-19 Vaccine ( season) [facility] Start: 10-29-2023 Influenza vaccination Influenza Vaccine (#1) [facility] Start: 10-28-2022 Influenza vaccination Influenza Vaccine (#1) [facility] Start: 02-27-2022 DEPRESSION ASSESSMENT DEPRESSION ASSESSMENT [facility] [facility] Start: 10-28-2021 Influenza vaccination INFLUENZA (#1) [facility] Start: 08-15-2015 PAP TESTING PAP TESTING [facility] Start: 08-15-2015 Screening for malignant neoplasm of cervix Cervical Cancer Screening [facility] Start: 2013 Hepatitis B Vaccine (1 of 3 - 19+ 3-dose series) Hepatitis B Vaccine (1 of 3 - 19+ 3-dose series) [facility] Start: 2013 Urine microalbumin profile [facility] Start: 2012 Anxiety Screening Anxiety Screening [facility] Start: 2012 Depression Screening Depression Screening [facility] Start: 2012 HEPATITIS C SCREENING HEPATITIS C SCREENING [facility] Start: 2012 Hepatitis C screening Hepatitis C Screening [facility] Start: 2012 HIV SCREENING HIV SCREENING [facility] Start: 2012 HIV screening HIV Screening [facility] Start: 02-13-1995 COVID-19 VACCINE (#1) COVID-19 VACCINE (#1) [facility] Start: 1994 HEPATITIS B (1 of 3 - 3-dose series) HEPATITIS B (1 of 3 - 3-dose series) [facility] Start: 1994 Hepatitis B Vaccine (1 of 3 - 3-dose series) Hepatitis B Vaccine (1 of 3 - 3-dose series) [facility] CBC W Auto Different ial panel - Blood [facility] Hepatitis C antibody measurement [facility] Patient Education ED Kidney Ston e with Pain [facility] Work Phone: Patient referral [facility] Work Phone: Procedure [facility] Rubella IgG measurement [facility] Serologic test for syphilis [facility] T4 free measurement [facility] Thyroid stimulating hormone measurement [facility] Thyroid stimulating hormone measurement [facility] Thyroperoxidase Ab [Units/volume] in Serum or Plasma [facility] Immunizations Immunization Date Immunization Notes Care Provider Lara lópez 12-19-2018 influenza, seasonal, injectable, preservative free No Primary Care Physician [facility] 12-19-2018 influenza virus vaccine, unspecified formulation Bobby Lorenzo MD Work Phone: [facility] 11-27-2018 influenza, injectabl e, quadrivalent, preservative free No Primary Care Physician [facility] 11-27-2018 influenza, seasonal, injectable No Primary Care Physician [facility] Work Phone: 01-12-2009 novel [id number], preservative-free, injectable No Primary Care Physician [facility] Payers Date Payer Category Payer Self-pay 2022 Medicaid [employer] [id number] 2022 Unknown [id number] 2022 Unknown [id number] [id number]. [id number] 1994 Unknown [id number] 2..840.1.061803.3.579.2.479 1994 Unknown [id number] 2..840.1.196047.3.579.2.479 Unknown SELF PAY INSURANCE [id number] Unknown [id number] 2.16.840.1.198830.3.579.2.462 Unknown [id number] 2.16.840.1.245228.3.579.2.462 Unknown [id number] 2.16.840.1.124874.3.579.2.462 Unknown [id number] 2.16.840.1.813943.3.579.2.462 Unknown [id number] 2.16.840.1.594347.3.579.2.462 Unknown [id number] 2.16.840.1.013384.3.579.2.462 Unknown [id number] 2.16.840.1.354000.3.579.2.462 Unknown [id number] 2.16.840.1.942139.3.579.2.462 Unknown [id number] 2.16.840.1.395521.3.579.2.462 Unknown [id number] 2.16.840.1.728477.3.579.2.462 Unknown [id number] 2.16.840.1.860464.3.579.2.462 Unknown [id number] 2.16.840.1.167157.3.579.2.462 Unknown [id number] 2.16.840.1.361209.3.579.2.462 Unknown [id number] 2.16.840.1.755237.3.579.2.462 Unknown [id number] 2.16.840.1.817755.3.579.2.462 Unknown [id number] 2.16.840.1.371659.3.579.2.462 Unknown [id number] 2.16.840.1.474523.3.579.2.462 Unknown [id number] 2.16.840.1.188641.3.579.2.462 Unknown [id number] 2.16.840.1.902831.3.579.2.462 Unknown [id number] 2.16.840.1.103306.3.579.2.462 Unknown [id number] 2.16.840.1.856986.3.579.2.462 Unknown [id number] 2.840.1.099974.3.579.2.462 Unknown [id number] 2.16.840.1.672044.3.579.2.462 Social History Date Type Detail Facility Start: 05-23-2021 Tobacco smoking stat us MNIS Unknown if ever smoked [facility] Work Phone: Start: 10-06-2019 None [facility] Start: 1995 Sex Assigned At Female [facility] Start: 05-15-2022 End: 08-09-2024 Tobacco smoking status MNIS Never smoked tobacco [facility] Start: 05-15-2022 Tobacco use and exposure Smokeless tobacco non-user [facility] Start: 05-15-2022 End: 07-02-2024 Alcohol intake Lifetime non-drinker (finding) [facility] Start: 1995 Sex Assigned At Not on file C [facility] Start: 05-15-2022 End: 12-24-2022 History of Social function [facility] Start: 05-15-2022 End: 12-24-2022 Tobacco use panel [facility] Adult Depression Screening Assessment 0 [facility] Start: 06-04-2024 End: 06-19-2024 Sex Female (finding) [facility] Start: 04-07-2024 [facility] Medical Equipment Procedure Code Equipment Code Equipment Origin al Text Equipment Identifier Dates Appendectomy, laparoscopic 45mm Standard Reload FDA Start: 07-19-2019 Appendectomy, laparoscopic 45mm Standard Reload FDA Start: 07-19-2019 Appendectomy, laparoscopic 45mm Standard Reload FDA Start: 07-19-2019 Appendectomy, laparoscopic 45mm Standard Reload FDA Start: 07-19-2019 Appendectomy, laparoscopic 45mm Standard Reload FDA Start: 07-19-2019 Appendectomy, laparoscopic 45mm Standard Reload FDA Start: 07-19-2019 Appendectomy, laparoscopic 45mm Standard Reload FDA Start: 07-19-2019 Clinical Notes 05-15-2022 to 08-23-2024 Note Date & Type Note Facility 08-23-2024 Progress note [facility] 08-23-2024 Progress note Note Date/Time August 23, 2024 2:58pm [facility] [address], [address] [place] [address] OFFICE VISIT Date of Service: 08/23/24 MR#: [id number] Acct: [id number] Name: VESTA HERNANDEZ Rep #: [id number] : 1995 Provider: FRANDY Go Age/Sex: 29/F Location: [facility] Status: Signed Intake Vital Signs 05/30/24 13:01 08/09/24 14:10 08/23/24 14:28 Height 5 ft 6 in 5 ft 6 in 5 ft 6 in Weight: 160 lb 8 oz BMI 25.9 BP 127/85 H Intake Visit Reasons: 21wk ob Chief Complaint: 21wk OB Senior Escrow Officer Required: No Is patient in pain?: No Allergies No Known Allergies Allergy (Verified 08/23/24 14:29) Medications ?Medication ?Instructions ?Recorded ?Confirmed ?Type levothyroxine 88 mcg tablet 88 mcg PO QDAY #60 tabs 08/23/24 Rx smenzqqu-rsc-nvpkl 120 mcg-dha 25 2 tab PO DAILY 08/0908/23/24 History mg-herb no.293 66.7 mg chew tablet (Alive Premium ) valacyclovir 1 gram tablet 1,000 mg PO BID PRN at onse t of 08/09/24 08/23/24 History (Valtrex) cold sore Last Menstrual Period: 03/24/24 : No PFSH PFSH Medical History Missed Kidney stone Alcohol use Low iron Migraine headache Blackout History of echocardiogram (spontaneous vaginal delivery) Surgical History H/O dilation and curettage History of cystoscopy S/P foot surgery, right History of laparoscopic appendectomy (~07/19/19) Family History Father Cancer, Onset Age: 57 Prostate ca Hypertension Grandfather Cancer, Onset Age: 70 Maternal Prostate Cancer Grandmother COPD (chronic obstructive pulmonary disease) Maternal Mother Hypertension Sister Fatty liver due to alcoholism Unknown Thyroid disorder Aunt Thyroid disorder Social History adopted: No household members: significant other and children housing: house number of children: 4 current occupational status: unemployed current occupation: [employer] pets and animals: No history of recent travel: No sexually active: Yes Smoking Status: Never smoker Electronic Cigarette Use: not used second hand exposure: No alcohol intake: former details: quit back in 2019 substance use type: does not use well-balanced diet: daily or most days caffeine: Yes Type: tea eating out: 1-3 times/week during the past year weight has: remained stable what type of physical activity do you participate in: walking frequency: 5-6 times per week duration: 30-45 minutes/day andie/congregational: None seatbelt use: always do you feel safe at home: Yes additional 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: 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 Date Name GA/Weeks Outcome Route Bth Weight Infant Gen Labor Lgth Anesthesia Del Locatn Provider FOB 03/23/14 Melvina 40 live - full term 8#1oz Female epidural [facility] 03/03/18 [place] 39 live - full term 8#13oz Male epid ural [facility] Dr.Weeman Hilario 10/06/19 Skip 38 live - full term 6#3oz Female epid ural [facility] Pj Hilario 05/23/21 Jamin 38 live - full term 8#5oz Male epidu ral [facility] Suzanne Hilario 10/16/23 D&C HPI 21wk ob Details: VESTA HERNANDEZ is a 29 year old who presents for routine OB visit. OB Visit CODY Calculator Estimated Delivery Date Method Current WG Current Estimate 12/29/24 LMP (Certain) 21w 5d Other Estimates 12/26/24 Ultrasound #1 22w 1d Expected Delivery Route/Plan Labor Preferences- CB/BF classes: [] labor support person: [] labor intervention preferences: [] pain management options preferred: [] cut cord/dad catch: [] : [] PP control planned: [] discussed possible routes of delivery and associated risks: [] special requests: [] Specific Issue/Plans Covid status: [] Flu vaccine: [] Tdap vaccine: [] Rhogam: [] LARC form signed: [] Problem list reviewed and updated with the most current plan of care details and appropriate orders placed. Relevant counseling for the gestational age provided. Continue routine care and follow up unless otherwise noted in visit notes/problem list details Initial Weight: 163 lb Date -?-?-?-?-?-?-?-?-?-?-?-?- EGA Weight BP Urine Prot -?-?-?-?-?-?-?-?-?-?-?-?- Glucose FHR FuHt Pres Dilation -?-?-?-?-?-?-?-?-?-?-?-?- Effaced St Visit Note 05/30/24 -?-?-?-?-?-?-?-?-?-?-?-?- 9w 4d 163 lb 4 oz (+4 oz) 128/81 -?-?-?-?-?-?-?-?-?-?-?-?- 181 -?-?-?-?-?-?-?-?-?-?-?--?- KW- CRL cons wit h dates. unsure if wants NIPT-will get labs next week 06/27/24 -?-?-?-?-?-?-?-?-?-?-?-?- 13w 4d 155 lb 4 oz (-7 lb 12 oz) 119/83 Negative -?-?-?-?-?-?-?-?-?-?-?-?- Negative 166 -?-?-?-?-?-?-?-?-?-?-?-?- KW- no vb/crampi ng. discussed XYY results. anatomy US ordered. KW- no vb/cramping. discusse d XYY results. anatomy US ordered. thyroid levels need drawn next visit. having weight loss but eating appropriately. 07/24/24 -?-?-?-?-?-?-?-?-?-?-?-?- 17w 3d 157 lb 6 oz (-5 lb 10 oz) 121/81 Negative -?-?-?-?-?-?-?-?-?-?-?-?- Negative 161 -?-?-?-?-?-?-?-?-?-?-?-?- JV- no complaint s today. needs thyroid labs. has anatomy scan ordered. reviewed more about XYY 08/23/24 -?-?-?-?-?-?-?-?-?-?-?-?- 21w 5d 160 lb 8 oz (-2 lb 8 oz) 127/85 Negative -?-?-?-?-?-?-?-?-?-?-?-?- Negative 155 21 -?-?-?-?-?-?-?-?-?-?-?-?- LC- thryoid stud ies ordered. anatomy views now completed- pending report. no vb/cramping. ACOG First Trimester First Trimester: Desire for , Alcohol, Tobacco Cessation, Illicit/Recreational Drug/Substance Use, Intimate Partner Violence, Barriers to care, Anticipated Course of Care, Use of Any medications, Sexual activity, Exercise, Dental Care, Sauna/Hot tub use, Seat Belt use, Childbirth classes/Hospital facilities, Travel, Indications for Ultrasound and Screening for Aneuploidy; Discussed Unstable Housing, Discussed Communication Barriers, Discussed Environmental/Work Hazards, Discussed Toxoplasmosis Precations and Discussed Second Trimester Second Trimester: Signs and Symptoms of Labor, Selecting a care provider, Reproductive Life Planning & Contreception, Care Planning, Depression/Anxiety and Intimate Partner Violence; Discussed Tobacco Cessation Third Trimester Third Trimester: Pain Management Plans, Labor support person(s), Immediate Larc, Signs and Symptoms of Preeclampsia, Infant Feeding No , [place] Education and Family Medical Leave or Disability Forms ROS Const Reports system reviewed and no additional complaints, except as documented GI Denies nausea and Denies vomiting Denies urinary hesitancy and Denies urinary urgency Exam Const Orientation: alert, awake and oriented x3 Resp Effort & Inspection: normal respiratory effort, able to speak in complete sentences and symmetric chest movement GI Palpation: soft (gravid) OB/External & Speculum: other (fundus appriopriate for GA) Results POC Urinalysis 2 Dip (Clinic) Office Urine Glucose Negative Last Edit by Fang Malik on 08/23/24 14:34 Office Urine Protein Negative Last Edit by Fang Malik on 08/23/24 14:34 Coding Level of Care Code Off vis,est,level 3 Diagnoses Abnormal genetic test during O28.5 Missed with demise before 20 completed weeks of gestation O02.1 Acquired hypothyroidism E03.9 Hypothyroidism type: acquired Supervision of high-risk O 21 weeks gestation of Z3A.21 Weeks of gestation: 21 weeks Abnormal TSH R79.89 Assessment and Plan Assessment and Plan (1) Abnormal genetic test during : Status: Acute Comment: NIPT XYY, discussed genetic counseling and offered MFM referral, will discuss further at next visit (2) Missed with demise before 20 completed weeks of gestation: Status: Acute Comment: H/O D&C 09/2023 with (3) Hypothyroid: Status: Chronic Qualifiers: Hypothyroidism type: acquired Qualified Code(s): E03.9 - Hypothyroidism, unspecified Comment: Levothyroxine 112mcg 88mcg-repeat labs 08/23 (4) Supervision of high-risk : Status: Acute Comment: , CODY 12/29 PC: Christian Hein Kynzie, Dawson BF: Sulaiman (5) : Status: Acute Qualifiers: Weeks of gestation: 21 weeks Qualified Code(s): Z3A.21 - 21 weeks gestation of Comment: NIPT w gender & carrier- undecided (6) Abnormal TSH: Status: Acute Comment: need free T4 now. If normal, repeat TSH and Free T4 in 3 months Orders: Orders POC Urinalysis 2 Dip (Clinic) Today Thyroid Stim Hormone (TSH) Today E03.9 - Hypothyroidism, unspecified, O02.1 - Missed , O90 - Supervision of high risk , unspecified, unspecified trimester, O28.5 - Abnormal chromosomal and genetic finding on screening of mother, R79.89 - Other specified abnormal findings of blood chemistry T4 Free Direct Today E03.9 - Hypothyroidism, unspecified, R79.89 - Other specified abnormal findings of blood chemistry Free T3 Today E03.9 - Hypothyroidism, unspecified, R79.89 - Other specified abnormal findings of blood chemistry Plan Details Additional Comments: ACOG trimester education reviewed and updated. see problem list details for updated plan management information and see below for orders placed at this visit. GA appropriate handout given. 08/23/24 5374 <Electronically signed by Devora grove CNM> Date _ Devora Go CNM Cosigner Signature: Date (if applicable) CC: ~ [facility] Work Phone: 1(687) 509-259805-28-2025 [facility] [address], [address] [place] [address] OFFICE VISIT Date of Service: 07/24/24 MR#: [id number] Acct: [id number] Name: VESTA HERNANDEZ Rep #: [id number] : 1995 Provider: Dr. Roxann Wong DO Age/Sex: 28/F Location: [facility] Status: Signed Intake Vital Signs 05/30/24 13:01 06/27/24 15:02 07/24/24 14:29 07/24/24 14:30 Height 5 ft 6 in 5 ft 6 in 5 ft 6 in 5 ft 6 in Weight: 157 lb 6 oz BMI 25.4 BP 121/81 H Intake Visit Reasons: 17wk ob Senior Escrow Officer Required: No Is patient in pain?: No Allergies No Known Allergies Allergy (Verified 07/24/24 14:28) Medications ?Medication ?Instructions ?Recorded ?Confirmed ?Type vpxpdbjf-qmb-zqapc 120 mcg-dha 25 tab PO 05/30/2406/28 History mg-herb no.293 66.7 mg chew tablet (Alive Premium ) levothyroxine 100 mcg tablet 100 mcg PO QDAY #60 tabs 06/14/24 07/24/24 Rx Last Menstrual Period: 03/24/24 Zika: Zika virus screening: Negative : No PFSH PFSH Medical History Missed Kidney stone Alcohol use Low iron Migraine headache Blackout History of echocardiogram (spontaneous vaginal delivery) Surgical History H/O dilation and curettage History of cystoscopy S/P foot surgery, right History of laparoscopic appendectomy (~07/19/19) Family History Father Cancer, Onset Age: 57 Prostate ca Hypertension Grandfather Cancer, Onset Age: 70 Maternal Prostate Cancer Grandmother COPD (chronic obstructive pulmonary disease) Maternal Mother Hypertension Sister Fatty liver due to alcoholism Unknown Thyroid disorder Aunt Thyroid disorder Social History adopted: No household members: significant other and children housing: house number of children: 4 current occupational status: unemployed current occupation: 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 Date Name GA/Weeks Outcome Route Bth Weight Gen Labor Lgth Anesthesia Del Locatn Provider FOB 03/23/14 Melvina 40 live - full term 8#1oz Female epidural [facility] 03/03/18 [place] 39 live - full term 8#13oz Male epid ural [facility] Dr.Weeman Hilario 10/06/19 [place] 38 live - full term 6#3oz Female epid ural [facility] Pj Hilario 05/23/21 Jamin 38 live - full term 8#5oz Male epidu ral [facility] Suzanne Hilario 10/16/23 D&C HPI 17wk ob Details: VESTA HERNANDEZ is a 28 year old who presents for routine OB visit. OB Visit CODY Calculator Estimated Delivery Date Method Current WG Current Estimate 12/29/24 LMP (Certain) 17w 3d Other Estimates 12/26/24 Ultrasound #1 17w 6d Expected Delivery Route/Plan Labor Preferences- CB/BF classes: [] labor support person: [] labor intervention preferences: [] pain management options preferred: [] cut cord/dad catch: [] : [] PP control planned: [] discussed possible routes of delivery and associated risks: [] special requests: [] Specific Issue/Plans Covid status: [] Flu vaccine: [] Tdap vaccine: [] Rhogam: [] LARC form signed: [] Problem list reviewed and updated with the most current plan of care details and appropriate ordersplaced. Relevant counseling for the gestational age provided. Continue routine care and follow up unless otherwise noted in visit notes/problem list details Initial Weight: 163 lb Date -?-?-?-?-?-?-?-?-?-?-?-?- EGA Weight BP Urine Prot -?-?-?-?-?-?-?-?-?-?-?-?- Glucose FHR FuHt Pres Dilation -?-?-?-?-?-?-?-?-?-?-?-?- Effaced St Visit Note 05/30/24 -?-?-?-?-?-?-?-?-?-?-?-?- 9w 4d 163 lb 4 oz (+4 oz) 128/81 -?-?-?-?-?-?-?-?-?-?-?-?- 181 -?-?-?-?-?-?-?-?-?-?-?-?- KW- CRL cons wit h dates. unsure if wants NIPT-will get labs next week 06/27/24 -?-?-?-?-?-?-?-?-?-?-?-?- 13w 4d 155 lb 4 oz (-7 lb 12 oz) 119/83 Negative -?-?-?-?-?-?-?-?-?-?-?-?- Negative 166 -?-?-?-?-?-?-?-?-?-?-?-?- KW- no vb/crampi ng. discussed XYY results. anatomy US ordered. KW- no vb/cramping. discusse d XYY results. anatomy US ordered. thyroid levels need drawn next visit. having weight loss but eating appropriately. 07/24/24 -?-?-?-?-?-?-?-?-?-?-?-?- 17w 3d 157 lb 6 oz (-5 lb 10 oz) 121/81 Negative -?-?-?-?-?-?-?-?-?-?-?-?- Negative 161 -?-?-?-?-?-?-?-?-?-?-?-?- JV- no complaint s today. needs thyroid labs. has anatomy scan ordered. reviewed more about XYY ACOG First Trimester First Trimester: Desire for , Alcohol, Tobacco Cessation, Illicit/Recreational Drug/Substance Use, Intimate Partner Violence, Barriers to care, Anticipated Course of Care, Use of Any medications, Sexual activity, Exercise, Dental Care, Sauna/Hot tub use, Seat Belt use, Childbirth c lasses/Hospital facilities, Travel, Indications for Ultrasound and Screening for Aneuploidy; Discussed Unstable Housing, Discussed Communication Barriers, Discussed Environmental/Work Hazards, Discussed Toxoplasmosis Precations and Discussed Second Trimester Second Trimester: Signs and Symptoms of Labor, Selecting a care provider, Reproductive Life Planning & Contreception, Care Planning, Depression/Anxiety and Intimate Partner Violence; Discussed Tobacco Cessation Third Trimester Third Trimester: Pain Management Plans, Labor support person(s), Immediate Larc, Signs and Symptoms of Preeclampsia, Feeding No , Education and Family Medical Leave or Disability Forms ROS Const Denies fever(s) GI Reports as per HPI and Denies abdominal pain Reports as per HPI, Denies abnormal vaginal bleeding, Denies dysuria and Denies vaginal discharge Exam Const General: healthy appearing, comfortable and no acute distress GI Inspection: normal to inspection Palpation: soft and nontender Results POC Urinalysis 2 Dip (Clinic) Office Urine Glucose Negative Last Edit by Molly Stewart on 07/24/24 14: 44 Office Urine Protein Negative Last Edit by Molly Stewart on 07/24/24 14: 44 Coding Level of Care Code Off vis,est,level 3 Diagnoses Abnormal genetic test during O28.5 Missed with demise before 20 completed weeks of gestation O02.1 Hypothyroid E03.9 Supervision of high-risk O09.90 17 weeks gestation of Z3A.17 Weeks of gestation: 17 weeks Abnormal TSH R79.89 Assessment and Plan Assessment and Plan (1) Abnormal genetic test during : Status: Acute Comment: NIPT XYY, discussed genetic counseling and offered MFM referral, will discuss further at next visit (2) Missed with demise before 20 completed weeks of gestation: Status: Acute Comment: H/O D&C 09/2023 with (3) Hypothyroid: Status: Acute Comment: Levothyroxine 112mcg (4) Supervision of high-risk : Status: Acute Comment: , CODY 12/29 PC: Christian Hein Kynzie, Dawson BF: Sulaiman (5) : Status: Acute Qualifiers: Weeks of gestation: 17 weeks Qualified Code(s): Z3A.17 - 17 weeks gestation of Comment: NIPT w gender & carrier- undecided (6) Abnormal TSH: Status: Acute Comment: need free T4 now. If normal, repeat TSH and Free T4 in 3 months Orders: Orders POC Urinalysis 2 Dip (Clinic) Today T4 Free Direct Today R79.89 - Other specified abnormal findings of blood chemistry 07/24/24 1507 e Velde DO> Date _ Amelia Wong DO Cosigner Signature: Date (if applicable) CC: ~ [facility]05-28-2025 Progress note Author Amelia Mendez [facility] Note Date/Time July 24, 2024 3:07p [facility] [address], [address] [place] [address] OFFICE VISIT Date of Service: 07/24/24 MR#: [id number] Acct: [id number] Name: VESTA HERNANDEZ Rep #: [id number] : 1995 Provider: Dr. Roxann Wong DO Age/Sex: 28/F Location: [facility] Status: Signed Intake Vital Signs 05/30/24 13:01 06/27/24 15:02 07/24/24 14:29 07/24/24 14:30 Height 5 ft 6 in 5 ft 6 in 5 ft 6 in 5 ft 6 in Weight: 157 lb 6 oz BMI 25.4 BP 121/81 H Intake Visit Reasons: 17wk ob Senior Escrow Officer Required: No Is patient in pain?: No Allergies No Known Allergies Allergy (Verified 07/24/24 14:28) Medications ?Medication ?Instructions ?Recorded ?Confirmed ?Type [id number]-yxb-qrxxv 120 mcg-dha 25 tab PO 05/30/2406/28 History mg-herb no.293 66.7 mg chew tablet (Alive Premium ) levothyroxine 100 mcg tablet 100 mcg PO QDAY #60 tabs 06/14/24 07/24/24 Rx Last Menstrual Period: 03/24/24 Zika: Zika virus screening: Negative : No PFSH PFSH Medical History Missed Kidney stone Alcohol use Low iron Migraine headache Blackout History of echocardiogram (spontaneous vaginal delivery) Surgical History H/O dilation and curettage History of cystoscopy S/P foot surgery, right History of laparoscopic appendectomy (~07/19/19) Family History Father Cancer, Onset Age: 57 Prostate ca Hypertension Grandfather Cancer, Onset Age: 70 Maternal Prostate Cancer Grandmother COPD (chronic obstructive pulmonary disease) Maternal Mother Hypertension Sister Fatty liver due to alcoholism Unknown Thyroid disorder Aunt Thyroid disorder Social History adopted: No household members: significant other and children housing: house number of children: 4 current occupational status: unemployed current occupation: 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 Date Name GA/Weeks Outcome Route Bth Weight Gen Labor Lgth Anesthesia Del Locatn Provider FOB 03/23/14 Melvina 40 live - full term 8#1oz Female epidural [facility] 03/03/18 [place] 39 live - full term 8#13oz Male epid ural [facility] Dr.Weeman Hilario 10/06/19 Skip 38 live - full term 6#3oz Female epid ural [facility] Pj Hilario 05/23/21 Jamin 38 live - full term 8#5oz Male epidu ral [facility] Suzanne Hilario 10/16/23 D&C HPI 17wk ob Details: VESTA HERNANDEZ is a 28 year old who presents for routine OB visit. OB Visit CODY Calculator Estimated Delivery Date Method Current WG Current Estimate 12/29/24 LMP (Certain) 17w 3d Other Estimates 12/26/24 Ultrasound #1 17w 6d Expected Delivery Route/Plan Labor Preferences- CB/BF classes: [] labor support person: [] labor intervention preferences: [] pain management options preferred: [] cut cord/dad catch: [] : [] PP control planned: [] discussed possible routes of delivery and associated risks: [] special requests: [] Specific Issue/Plans Covid status: [] Flu vaccine: [] Tdap vaccine: [] Rhogam: [] LARC form signed: [] Problem list reviewed and updated with the most current plan of care details and appropriate orders placed. Relevant counseling for the gestational age provided. Continue routine care and follow up unless otherwise noted in visit notes/problem list details Initial Weight: 163 lb Date -?-?-?-?-?-?-?-?-?-?-?-?- EGA Weight BP Urine Prot -?-?-?-?-?-?-?-?-?-?-?-?- Glucose FHR FuHt Pres Dilation -?-?-?-?-?-?-?-?-?-?-?-?- Effaced St Visit Note 05/30/24 -?-?-?-?-?-?-?-?-?-?-?-?- 9w 4d 163 lb 4 oz (+4 oz) 128/81 -?-?-?-?-?-?-?-?-?-?-?-?- 181 -?-?-?-?-?-?-?-?-?-?-?-?- KW- CRL cons wit h dates. unsure if wants NIPT-will get labs next week 06/27/24 -?-?-?-?-?-?-?-?-?-?-?-?- 13w 4d 155 lb 4 oz (-7 lb 12 oz) 119/83 Negative -?-?-?-?-?-?-?-?-?-?-?-?- Negative 166 -?-?-?-?-?-?-?-?-?-?-?-?- KW- no vb/crampi ng. discussed XYY results. anatomy US ordered. KW- no vb/cramping. discusse d XYY results. anatomy US ordered. thyroid levels need drawn next visit. having weight loss but eating appropriately. 07/24/24 -?-?-?-?-?-?-?-?-?-?-?-?- 17w 3d 157 lb 6 oz (-5 lb 10 oz) 121/81 Negative -?-?-?-?-?-?-?-?-?-?-?-?- Negative 161 -?-?-?-?-?-?-?-?-?-?-?-?- JV- no complaint s today. needs thyroid labs. has anatomy scan ordered. reviewed more about XYY ACOG First Trimester First Trimester: Desire for , Alcohol, Tobacco Cessation, Illicit/Recreational Drug/Substance Use, Intimate Partner Violence, Barriers to care, Anticipated Course of Care, Use of Any medications, Sexual activity, Exercise, Dental Care, Sauna/Hot tub use, Seat Belt use, Childbirth classes/Hospital facilities, Travel, Indications for Ultrasound and Screening for Aneuploidy; Discussed Unstable Housing, Discussed Communication Barriers, Discussed Environmental/Work Hazards, Discussed Toxoplasmosis Precations and Discussed Second Trimester Second Trimester: Signs and Symptoms of Labor, Selecting a care provider, Reproductive Life Planning & Contreception, Care Planning, Depression/Anxiety and Intimate Partner Violence; Discussed Tobacco Cessation Third Trimester Third Trimester: Pain Management Plans, Labor support person(s), Immediate Larc, Signs and Symptoms of Preeclampsia, Infant Feeding No , Education and Family Medical Leave or Disability Forms ROS Const Denies fever(s) GI Reports as per HPI and Denies abdominal pain Reports as per HPI, Denies abnormal vaginal bleeding, Denies dysuria and Denies vaginal discharge Exam Const General: healthy appearing, comfortable and no acute distress GI Inspection: normal to inspection Palpation: soft and nontender Results POC Urinalysis 2 Dip (Clinic) Office Urine Glucose Negative Last Edit by Molly Stewart on 07/24/24 14: 44 Office Urine Protein Negative Last Edit by Molly Stewart on 07/24/24 14: 44 Coding Level of Care Code Off vis,est,level 3 Diagnoses Abnormal genetic test during O28.5 Missed with demise before 20 completed weeks of gestation O02.1 Hypothyroid E03.9 Supervision of high-risk O09.90 17 weeks gestation of Z3A.17 Weeks of gestation: 17 weeks Abnormal TSH R79.89 Assessment and Plan Assessment and Plan (1) Abnormal genetic test during : Status: Acute Comment: NIPT XYY, discussed genetic counseling and offered MFM referral, will discuss further at next visit (2) Missed with demise before 20 completed weeks of gestation: Status: Acute Comment: H/O D&C 09/2023 with SM (3) Hypothyroid: Status: Acute Comment: Levothyroxine 112mcg (4) Supervision of high-risk : Status: Acute Comment: , CODY 12/29 PC: Christian Hein Kynzie, Dawson BF: Sulaiman (5) : Status: Acute Qualifiers: Weeks of gestation: 17 weeks Qualified Code(s): Z3A.17 - 17 weeks gestation of Comment: NIPT w gender & carrier- undecided (6) Abnormal TSH: Status: Acute Comment: need free T4 now. If normal, repeat TSH and Free T4 in 3 months Orders: Orders POC Urinalysis 2 Dip (Clinic) Today T4 Free Direct Today R79.89 - Other specified abnormal findings of blood chemistry 07/24/24 1507 <Electronically signed by Amelia Lam DO> Date _ Amelia Wong DO Cosigner Signature: Date (if applicable) CC: ~ [place] [facility] [place] Work Phone: 1(367) 145-368505-06-2025 Instructions* Patient Instructions* Serg Grubbs APRN.SOLAR PHOTOVOLTAIC INSTALLER - 07/02/2024 6:46 PM EDT [facility] [address] [place], [place] [address] Emergency Department Diagnosis: Assessment SINUSITIS: You have [...] or toothache. Nausea, vomiting, or unusual drowsiness. documented in this encounter[facility]25 NoteHNO ID: [id number] Author: SERG GRUBBS APRN.SOLAR PHOTOVOLTAIC INSTALLER Service: ? Author Type: Nurse Practitioner Type: Progress Notes Filed: 07/02/2024 18:50 Note Text: [facility] [address] [address] Dept: [phone] Dept Subjective Subjective Vesta Hernandez is a 28 year old female who [...] only minimally provide some relief. States that jail through her symptoms she thought she was [...] Take 100 mcg by mouth once daily.) [id number]-MX-[id number]-lri-uht-zvkj ( MULTI-DHA,WITH VIT K,) 27 mg iron-800 [...] and frontal sinus tenderness present. Mouth/Throat: Lips: [place]. Mouth: Mucous membranes are moist. No oral [...] (HCC) - ICD9: V22.2, ICD10: Z3A.14 Serg Grubbs APRN.SOLAR PHOTOVOLTAIC INSTALLER Differential Diagnoses - Sinusitis is more likely [...] understanding and agrees with treatment plan. Patient (more content not included)...[facility]05-06-[facility]25 History of Present illness Narrative* Serg Grubbs APRN.SOLAR PHOTOVOLTAIC INSTALLER - 07/02/2024 6:43 PM EDT [facility] [address] [address] Dept: [phone] Dept Subjective Subjective Vesta Hernandez is a 28 year old female who [...] but no phlegm with it. Denies fevers orchills. States that she has utilized saline solution that help clear her nasal passages which have only minimally provide some relief. States that jail through her symptoms she thought she was [...] Take 100 mcg by mouth once daily.) [id number]-vang-LI-p6-jxu-zij-brmb ( MULTI-DHA,WITH VIT K,) 27 mg iron-800 [...] Objective BP 110/76 Pulse 95 Temp 37.2 C (98.9 F) Resp 22 Wt 71.2 kg (157 lb) LMP 12/10/2022 (ExactDate) SpO2 97% No Physical Exam Vitals and [...] and frontal sinus tenderness present. Mouth/Throat: Lips: [place]. Mouth: Mucous membranes are moist. No oral [...] (HCC) - ICD9: V22.2, ICD10: Z3A.14 Serg Grubbs APRN.SOLAR PHOTOVOLTAIC INSTALLER Differential Diagnoses - Sinusitis is more likely for the following reason(s): suggested by H&P Disposition The patient was discharged. Due to [...] was used to dictate this note. Serg Grubbs APRN-DEMONSTRATOR KNITTING 07/02/2024 6:43 PM documented in this encounterMet[facility]04-03-2025 Evaluation note* Diagnosis Onset Date Resolution Status Admit Date Abnormal TSH acute May 30, 2 025 12:57pm Missed with demise before 20 completed weeks of gestation acute May 30 12:57pm acute May 30 12:57pm Supervision of high-risk acute May 30, 2024 12:57pm Hypothyroid chronic May 30 12:57pm Abnormal genetic test during acute June 27, 2024 2: 59pm Abnormal TSH acute June 27 2:59pm Missed with demise before 20 completed weeks of gestation acute June 27, 2024 2:59pm acute June 27, 2024 2:59pm Supervision of high-risk acute June 27, 2024 2: 59pm Hypothyroid chronic June 27, 2024 2:59pm Abnormal genetic test during acute July 24, 2024 2 :06pm Abnormal TSH acute July 24 2:06pm Missed with demise before 20 completed weeks of gestation acute July 24 2:06pm acute July 24, 2024 2:06pm Supervision of high-risk acute July 24, 2024 2 :06pm Hypothyroid chronic July 24 2:06pm Hypothyroid chronic August 09 2:10pm Abnormal genetic test during acute August 23, 2024 2:23pm Abnormal TSH acute August 23, 2 025 2:23pm Missed with demise before 20 completed weeks of gestation acute August 23 2:23pm acute August 23 2:23pm Supervision of high-risk acute August 23, 2024 2:23pm Hypothyroid chronic August 23 2:23pm [facility] Work Phone: 1(470) 845-368703-31-2025 Instructions* Patient Instructions* Serg Grubbs, FOREST FIRE CONTROL OFFICER.SOLAR PHOTOVOLTAIC INSTALLER - 05/27/2024 5:13 PM EDT OTITIS MEDIA GENERAL INFORMATION: Otitis media is [...] even if the symptoms go away. 2. Isjt-vyz-ccjjyjh pain medication may be taken or other [...] soothed by you holding him or her). documented in this encounterMet[facility]03-31-2025 NoteHNO ID: [id number] Author: SERG GRUBBS APRN.BRENNAN Service: ? Author Type: Nurse Practitioner Type: Progress Notes Filed: 05/27/2024 17:29 Note Text: [facility] [place] [address] [address] Dept: [phone] Dept Subjective Subjective Vesta Hernandez is a 28 year old female who [...] Take 1 tablet by mouth once daily. [id number]-lniq-CV-y0-ktl-aok-sdhm ( MULTI-DHA,WITH VIT K,) 27 mg iron-800 [...] H66.92 - AMOXICILLIN 875 MG TABLET Serg Grubbs APRN.SOLAR PHOTOVOLTAIC INSTALLER Differential Diagnoses - Left dysphagia is more [...] was used to dictate this note. Serg Grubbs APRN-DEMONSTRATOR KNITTING 05/27/2024 5:11 [facility] History of Present illness Narrative* Serg Grubbs APRN.SOLAR PHOTOVOLTAIC INSTALLER - 05/27/2024 5:11 PM EDT [facility] [place] [address] [address] Dept: [phone] Dept Subjective Subjective Vesta Hernandez is a 28 year old female who [...] minimal relief. Does not have an extensive historyof ear infections. No other complaints at this [...] Take 1 tablet by mouth once daily. [id number]-anng-YT-s3-nja-jcj-lldh ( MULTI-DHA,WITH VIT K,) 27 mg iron-800 [...] Size: Regular Adult) Pulse 93 Temp 36.6 C (97.9 F) (Temporal) Resp 18 Wt 74.8 kg (164 [...] H66.92 - AMOXICILLIN 875 MG TABLET Serg Grubbs APRN.CNP Differential Diagnoses - Left dysphagia is more likely for the following reason(s): suggested by H&P Disposition The patient was discharged. Patient given educational materials - see patient instructions. Discussed use, benefit, and side effects of prescribed medications. All patient questions answered. Pt voiced understanding and agrees with treatment plan. Patient advised if symptoms worsen or persist, they are to follow up with PCP or ED. Patient agreeable with treatment plan. Roll20 was used to dictate this note. Serg Grubbs APRN-DEMONSTRATOR KNITTING 05/27/2024 5:11 PM documented in this encounterMet[facility]02-17-2025 Evaluation note* Diagnosis Onset Date Resolution Status Admit Date Immunization declined noneactive b [facility] 2024 8:58am Acquired hypothyroidism noneactive [facility] 2024 8:58am Establishing care with new doctor, encounter for noneactive March 302024 8:58am Fatigue noneactive April 15, 2024 8:58am Goiter noneactive April 15, 2024 8:58am Recurrent kidney stones noneactive [facility] 2024 8:58am Abnormal TSH acute May 30, 2 025 12:57pm Hypothyroid acute May 30 12:57pm Missed with demise before 20 completed weeks of gestation acute May 30 12:57pm acute May 30 12:57pm Supervision of high-risk acute May 30, 2024 12:57pm [facility] Work Phone: 1(192) 711-971702-17-2025 Evaluation note* Diagnosis Onset Date Resolution Status Admit Date Immunization declined noneactive Feb [facility] 2024 8:58am Acquired hypothyroidism noneactive [facility] 2024 8:58am Establishing care with new doctor, encounter for noneactive March 302024 8:58am Fatigue noneactive April 15, 2024 8:58am Goiter noneactive April 15, 2024 8:58am Recurrent kidney stones noneactive [facility] 2024 8:58am Abnormal TSH acute May 30, 2 025 12:57pm Hypothyroid acute May 30 12:57pm Missed with demise before 20 completed weeks of gestation acute May 30 12:57pm acute May 30 12:57pm Supervision of high-risk acute May 30, 2024 12:57pm Abnormal genetic test during acute June 27, 2024 2: 59pm Abnormal TSH acute June 27 2:59pm Hypothyroid acute June 27, 2024 2:59pm Missed with demise before 20 completed weeks of gestation acute June 27, 2024 2:59pm acute June 27, 2024 2:59pm Supervision of high-risk acute June 27, 2024 2: 59pm Abnormal genetic test during acute July 24, 2024 2 :06pm Abnormal TSH acute July 24 2:06pm Hypothyroid acute July 24 2:06pm Missed with demise before 20 completed weeks of gestation acute July 24 2:06pm acute July 24, 2024 2:06pm Supervision of high-risk acute July 24, 2024 2 :06pm [facility] Work Phone: 1(979) 291-263702-17-2025 Evaluation note* Diagnosis Onset Date Resolution Status Admit Date [facility] Acquired hypothyroidism noneactive [facility] 2024 8:58am Establishing care with new doctor, encounter for noneactive March 302024 8:58am Fatigue noneactive April 15, 2024 8:58am Goiter noneactive April 15, 2024 8:58am Recurrent kidney stones noneactive [facility] 2024 8:58am Abnormal TSH acute May 30, 2 025 12:57pm Hypothyroid acute May 30 12:57pm Missed with demise before 20 completed weeks of gestation acute Harriet 3rd, 20 25 12:57pm acute May 30 12:57pm Supervision of high-risk acute May 30, 2024 12:57pm Abnormal genetic test during acute June 27, 2024 2: 59pm Abnormal TSH acute June 27 2:59pm Hypothyroid acute June 27, 2024 2:59pm Missed with demise before 20 completed weeks of gestation acute June 27, 2024 2:59pm acute June 27, 2024 2:59pm Supervision of high-risk acute June 27, 2024 2: 59pm Abnormal genetic test during acute July 24, 2024 2 :06pm Abnormal TSH acute July 24 2:06pm Hypothyroid acute July 24 2:06pm Missed with demise before 20 completed weeks of gestation acute July 24 2:06pm acute July 24, 2024 2:06pm Supervision of high-risk acute July 24, 2024 2 :06pm Hypothyroid acute August 09 2:10pm [facility] [email or web address] Work Phone: 1(397) 164-665408-19-2024 [facility] Medical Records Department [address] [place] [address] History Physical Exam 10/16/23 1141 MR#: [id number] Acct: [id number] Name: VESTA HERNANDEZ Rep #: [id number] : 1995 28 From: Vera Love MD PCP: Care Physician,No Primary [place] [place] [facility] [place] and Physical Intake Vital Signs 08/15/2412:50 09/14/2411:48 10/11/2409:05 10/11/2409:06 Height 5 ft 6 in 5 ft 6 in 5 ft 6 in 5 ft 6 in Weight: 146 lb BMI 23.6 BP 109/73 Intake Visit Reasons: 12wk OB Senior Escrow Officer Required: No Is patient in pain?: No Allergies No Known Allergies Allergy (Verified 10/12/23 10:06) Medications ???Medication ???Instructions ???Recorded ???Confirmed ???Type multivitamin no.47-iron fum 27 cap PO 08/22/23 10/12/23 History mg-folate no.1 1 mg-dha 300 mg capsule (PNV-DHA) valacyclovir 500 mg tablet 500 mg PO BID PRN cold sores 08/22/23 10/12/23 History (Valtrex) Last Menstrual Period: 07/12/23 Zika: Zika virus screening: Negative : No Have you fallen in the past year?: No PFSH PFSH Medical History (spontaneous vaginal delivery) Kidney stones Surgical History S/P foot surgery, right History of laparoscopic appendectomy ( 07/19/19) Family History Father Cancer, Onset Age: 57 Prostate ca HypertensionGrandfather Cancer, Onset Age: 70 Maternal Prostate CancerGrandmother COPD (chronic obstructive pulmonary disease) MaternalMother HypertensionSister Fatty liver due to alcoholism Social History adopted: No household members: significant other and children number of children: 4 current occupational status: unemployed current occupation: [employer] pets and animals: No history of recent travel: No sexually active: Yes Smoking Status: Never smoker alcohol intake: never substance use type: does not use well-balanced diet: daily or most days caffeine: Yes Type: carbonated beverages Number of servings: 1 eating out: 1-3 times/week during the past year weight has: remained stable what type of physical activity do you participate in: walking frequency: 5-6 times per week duration: 30-45 minutes/day andie/congregational: None seatbelt use: always do you feel safe at home: Yes additional 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: JAIDEN [employer]Motorcycle [employer] History 5 Elective abortions Hx Para 4 Spontaneous abortions Hx # Term Pregnancies Ectopic pregnancies Hx # Pregnancies Multiple births # of living children 4 Past Pregnancies Del. Date Name GA/Weeks Outcome Route Bth Weight Gen Labor Lgth Anesthesia Del Locatn Provider FOB 03/23/14 Melvina 40 live - full term 8#1oz Female anneliese Miller 03/03/18 [place] 39 live - full term 8#13oz Male joanna anna [facility] Dr.Weeman Hilario 10/06/19 [place] 38 live - full term 6#3oz Female epidu ral [facility] Pj Hilario 05/23/21 Jamin 38 live - full term 8#5oz Male epidura l [facility] Pj Hilario HPI 12wk OB Details: VESTA HERNANDEZ is a 28 year old who presents for missed AB 12 weeks, no vb abnormal discharge, was seen in office last week for routine 13 week visit and found to be measuring a week behind 12 weeks with no FHT present. no fevers. no abdominal pain. OB Visit CODY Calculator Estimated Delivery Date Method Current WG Current Estimate 04/17/24 LMP (Certain) 13w 1d Other Estimates 04/12/24 Ultrasound #1 13w 6d Expected Delivery Route/Plan Labor Preferences- CB/BF classes: [] labor support person: [] labor intervention preferences: [] pain management options preferred: [] cut cord/dad catch: [] : [] PP control planned: [] discussed possible routes of delivery and associated risks: [] special requests: [] Specific Issue/Plans Covid status: [] Flu vaccine: [] Tdap vaccine: [] Rhogam: [] LARC form signed: [] Problem list reviewed and updated with the most current plan of care details and appropriate orders placed. Relevant counseling for the gestational age provided. Continue routine care and follow up unless otherwise noted in visit notes/problem list details Initial Weight: Not Recorded Date -???-???-???-???-???-???-???-???-???-???-???-???- EGA Weight BP Urine Prot -???-???-???-???-???-???-???-???-???-???-???-???- Glucose FHR FuHt Pres Dilation -???-???-???-???-???-???-???-???-???-???-???-???- Effaced St Visit Note 09/14/23-???-???-???-???-???-???-???-???-???-???-???-???- 9w 1d 146 lb 100/6 (more content not included)...[facility] 12-24-2022 History of Present illness Narrative* Bobby Lorenzo, - 12/24/2022 4:44 PM EDT Vesta Hernandez is a 27 year old female who presents with Sinusitis (Head pressure, headache drainage pos sinus infection for 1 week ) and Headache HPI patient 27-year-old female who presented to [facility] this afternoon with complaint ofhead pressure, headache, postnasal drainage, nasal congestion. The symptoms started 1 week ago and patient tried hrvn-sxk-cyklpnx medication without relief and due to concern patient is here for further evaluation and treatment History reviewed. No pertinent past medical history. There is no problem list on file for this patient. Current Outpatient Medications Medication Sig Dispense Refill [id number]-QY-s8-cdq-xkc-yfzh ( MULTI-DHA,WITH VIT K,) 27 mg iron-800 mcg-260 mg Take by mouth. B cmplx 4/vit D3/C/folic/zinc (VITAL-D RX ORAL) Take by mouth. No current facility-administered medications for this visit. Medications were reviewed and verified. Social History Tobacco Use Smoking status: Never Smokeless tobacco: Never Vaping Use Vaping Use: Never used Substance Use Topics Alcohol use: Never Drug use: Never Alcohol Use: Never Tobacco Use: Never History reviewed. No pertinent family history. Review of Systems Constitutional: Negative for chills, fever and malaise/fatigue. HENT: Positive for congestion and sinus pain. Negative for ear pain, nosebleeds and sore throat. Eyes: Negative for blurred vision and pain. Respiratory: Negative for cough, shortness of breath and wheezing. Cardiovascular: Negative for chest pain and palpitations. Gastrointestinal: Negative for abdominal pain, diarrhea, nausea and vomiting. Musculoskeletal: Negative for myalgias. Skin: Negative for rash. Neurological: Negative for dizziness. BP 118/81 Pulse 81 Temp 98 Resp 19 Wt 140 lb (63.5kg) SpO2 100% LMP 12/10/2022 Physical Exam Vitals and nursing note reviewed. Constitutional: General: She is not in acute distress. Appearance: Normal appearance. HENT: Right Ear: Tympanic membrane, ear canal and external ear normal. Left Ear: Tympanic membrane, ear canal and external ear normal. Nose: Congestion present. No rhinorrhea. Mouth/Throat: Mouth: Mucous membranes are moist. Pharynx: Oropharynx is clear. Eyes: Extraocular Movements: Extraocular movements intact. Conjunctiva/sclera: Conjunctivae normal. Pupils: Pupils are equal, round, and reactive to light. Cardiovascular: Rate and Rhythm: Normal rate and regular rhythm. Pulses: Normal pulses. Heart sounds: Normal heart sounds. Pulmonary: Breath sounds: Normal breath sounds. Musculoskeletal: Cervical back: Normal range of motion and neck supple. Lymphadenopathy: Cervical: No cervical adenopathy. Skin: Findings: No rash. ASSESSMENT/PLAN: 1. URI, acute - ICD9: 465.9, ICD10: J06.9 - Discussed viral etiology and rationale for treatment. - Symptomatic treatment with Medrol Dosepak take as directed- Supportive care with fluids and rest - The patient may also use OTC decongestants prn. - Follow up in 3-5 days if symptoms persist or sooner if worsening of symptoms - METHYLPREDNISOLONE 4 MG TABLETS IN A DOSE PACK Bobby Lorenzo MD documented [facility] this encounter[facility] History of Present illness Narrative* Karina Garcia, DEEP.[facility] - 05/19/2022 7:37 PM EDT Vesta Hernandez is a 26 year old female who presents with Chills, cheek pain, fever, achey ((24 hours) Chills upper body, sinus pressure on right cheek, generally achy. In Monday took CoVid test without definite conclusion) 26-year-old female presents today with complaints of fever, chills, sinus pain, body ache, cough, and drainage. She reports that she was seen on Monday for her symptoms, since then she has been usingFlonase and OTC medication- she was feeling better. Today she started to feel worse. Her children are sick as well and her son is being treated for a sinus infection. Denies chest pain and shortness of breath. The history is provided by the patient. No school speech language pathologist was used. No past medical history on file. There is no problem list on file for this patient. Current Outpatient Medications Medication Sig Dispense Refill amoxicillin (AMOXIL) 875 mg tablet Take 1 tablet by mouth every 12 hours for 7 days. 14 tablet 0 [id number] ( MULTI-DHA,WITH VIT K,) 27 mg iron-800 mcg-260 mg Take by mouth. B cmplx 4/vit D3/C/folic/zinc (VITAL-D RX ORAL) Take by mouth. No current facility-administered medications for this visit. Social History Tobacco Use Smoking status: Never Smokeless tobacco: Never Vaping Use Vaping Use: Never used Substance Use Topics Alcohol use: Never Drug use: Never Alcohol Use: Never Tobacco Use: Never No family history on file. Review of Systems Constitutional: Positive for chills and fever. Negative for malaise/fatigue. HENT: Positive for congestion and sinus pain. Negative for ear pain (reports that the pressure she was feeling in her ears at her previous visit is much improved) and sore throat. Eyes: Negative for pain and discharge. Respiratory: Positive for cough and sputum production. Negative for shortness of breath and wheezing. Cardiovascular: Negative for chest pain. Gastrointestinal: Negative for abdominal pain, diarrhea, nausea and vomiting. Musculoskeletal: Positive for myalgias. Neurological: Positive for headaches. BP 133/99 Pulse 105 Temp 100.6 Resp 16 Wt 150 lb (68.0kg) SpO2 100% Physical Exam Vitals and nursing note reviewed. Constitutional: General: She is not in acute distress. Appearance: Normal appearance. HENT: Head: Normocephalic. Comments: Tenderness to maxillary sinuses bilaterally Right Ear: Tympanic membrane normal. Left Ear: Tympanic membrane normal. Nose: Congestion and rhinorrhea present. Mouth/Throat: Mouth: Mucous membranes are moist. Pharynx: Posterior oropharyngeal erythema (mild) present. No oropharyngeal exudate. Eyes: Conjunctiva/sclera: Conjunctivae normal. Pupils: Pupils are equal, round, and reactive to light. Cardiovascular: Rate and Rhythm: Normal rate and regular rhythm. Pulses: Normal pulses. Heart sounds: Normal heart sounds. Pulmonary: Effort: Pulmonary effort is normal. No respiratory distress. Breath sounds: Normal breath sounds. No wheezing or rhonchi. Musculoskeletal: Cervical back: Normal range of motion. Lymphadenopathy: Cervical: No cervical adenopathy. Skin: General: Skin is warm and dry. Capillary Refill: Capillary refill takes less than 2 seconds. Neurological: Mental Status: She is alert. ASSESSMENT/PLAN: 1. Bacterial sinusitis - ICD9: 473.9, 041.9, ICD10: J32.9, B96.89 - Symptoms were improved and then worsened, discussed likely bacterial at this point. Will begin treatment with Amoxicillin for 7 days - Supportive care with plenty of fluids, rest, and analgesia prn. Continue using Flonase PRN - Follow up if symptoms persist or worsen. Discharged in stable condition - AMOXICILLIN 875 MG TABLET Karina Garcia APRN.CNP documented in this encounterMet[facility]23 Instructions* Patient Instructions* Karina Garcia APRN.CNP - 05/19/2022 7:34 PM EDT SINUSITIS: You have sinusitis, an infection of [...] any of the following more serious symptoms: -Unusual swelling around the eye or trouble seeing. -Increasing pain, severe headache, or toothache. -Nausea, vomiting, or unusual drowsiness. documented in this encounterMet[facility] History of Present illness Narrative* Steve Snell MD - 05/15/2022 2:20 PM EDT Vesta Hernandez is a 26 year old female who presents with Ear Problem (Right ear pain), NasalCongestion, and Cough (Since Monday). No History reviewed. No pertinent past medical history. There is no problem list on file for this patient. Current Outpatient Medications Medication Sig Dispense Refill [id number] ( MULTI-DHA,WITH VIT K,) 27 mg iron-800 mcg-260 mg Take by mouth. B cmplx 4/vit D3/C/folic/zinc (VITAL-D RX ORAL) Take by mouth. No current facility-administered medications for this visit. Social History Tobacco Use Smoking status: Never Smokeless tobacco: Never Vaping Use Vaping Use: Never used Substance Use Topics Alcohol use: Never Drug use: Never Alcohol Use: Never Tobacco Use: Never History reviewed. No pertinent family history. Review of Systems Constitutional: Negative. HENT: Positive for congestion and ear pain. Negative for ear discharge. Eyes: Negative. Respiratory: Negative. Cardiovascular: Negative. Gastrointestinal: Negative. Genitourinary: Negative. Musculoskeletal: Negative. Skin: Negative. Neurological: Negative. Endo/Heme/Allergies: Negative. Psychiatric/Behavioral: Negative. BP 120/90 Pulse 106 Temp 99.2 Resp 18 Wt 151 lb (68.5kg) SpO2 98% Physical Exam Constitutional: Appearance: Normal appearance. HENT: Right Ear: A middle ear effusion is present. Tympanic membrane is not injected. Left Ear: A middle ear effusion is present. Ears: Comments: Effusion R>L Nose: Congestion and rhinorrhea present. Eyes: Conjunctiva/sclera: Conjunctivae normal. Cardiovascular: Rate and Rhythm: Normal rate and regular rhythm. Neurological: Mental Status: She is alert. ASSESSMENT/PLAN: 1. Viral illness - ICD9: 079.99, ICD10: B34.9 (primary diagnosis) - Discussed viral etiology and rationale for treatment. - Symptomatic treatment with prn analgesia - Supportive care with fluids and rest 2. Sinus congestion - ICD9: 478.19, ICD10: R09.81 3. Eustachian tube dysfunction, bilateral - ICD9: 381.81, ICD10: H69.83 Recommend use of OTC Flonase, benadryl prn. Follow up if worsening symptoms. Steve Snell MD [facility]* Diagnosis Onset Date Resolution Status (spontaneous vaginal delivery) [facility] Work Phone: Evaluation note* Diagnosis Viral illness- Primary Unspecified viral infection, in conditions classified elsewhere and of unspecified site Sinus congestion Other diseases of nasal cavity and sinuses Eustachian tube dysfunction, bilateral documented in this encounter [facility]* Diagnosis Bacterial sinusitis- Primary Unspecified sinusitis (chronic) documented in this encounter [facility]* Diagnosis URI, acute- Primary Acute upper respiratory infections of unspecified site documented in this encounter [facility]* Diagnosis Acute otitis media, left- Primary Unspecified otitis media documented in this encounter [facility]* Diagnosis Acute non-recurrent frontal sinusitis- Primary 14 weeks gestation of (HCC) state, incidental documented in [facility] for [facility] (narrative)No reason for referral information availableWEast [facility] Work Phone: Summary Purpose Family History Relationship Condition Age at Onset Recorded Date/T fawad Unknown Family History?No pertinent history Unkno wn July 18, 2019 11:41pm Relationship Condition Age at Onset Recorded Date/T fawad father Malignant neoplasm 57 Hypertension Unknown grandfather Malignant neoplasm 70 grandmother Chronic obstructive pulmonary disease Unknown mother Hypertension Unknown sister Fatty liver due to alcoholism Unknown unrelated friend Disorder of thyroid Unknown aunt Disorder of thyroid Unknown Advance Directives Advance Directive Response Recorded Date/ Time Living Will No May 23, 2021 3:03am Power of Workers Compensation Manager No May 23 3:03am Advance Directive Response Recorded Date/ Time Living Will No March 29 4:04am Do you have a Healthcare Power of Workers Compensation Manager? No March 29, 2024 4:04am Chief Complaint and Reason for Visit Chief Complaint DYSPNEA, - 32 WEEKS VAGINAL DELIVERY Reason for Visit (spontaneous vag inal delivery) Chief Complaint Admit Date abd pain March 29, 2024 3 :04am EST NEW PT - WC PT April 15, 2024 8:58am ENLARGED THYROID April 19, 2024 5:04pm NOB LMP 03/24May 30, 2024 12:5 7pm Reason for Visit Admit Date Immunization declined April 15 8:58am Acquired hypothyroidism April 15, 2 025 8:58am Establishing care with new doctoralexandraer for April 15, 2024 8:58am Fatigue April 15, 2024 8:58am Goiter April 15, 2024 8:58am Recurrent kidney stones April 15, 2 025 8:58am Abnormal TSH May 30, 2024 12:5 7pm Hypothyroid May 30, 2024 12:5 7pm Missed with d emise before 20 completed weeks of gestation May 30, 2024 12:57pm May 30, 2024 12:5 7pm Supervision of high-risk May 30, 2024 12:57pm Chief Complaint Admit Date abd pain March 29, 2024 3 :04am EST NEW PT - WC PT April 15, 2024 8:58am ENLARGED THYROID April 19, 2024 5:04pm NOB LMP 03/24May 30, 2024 12:5 7pm 13wk ob June 27, 2024 2:59pm 17wk ob July 24, 2024 2:06p m Reason for Visit Admit Date Immunization declined April 15 8:58am Acquired hypothyroidism April 15, 2 025 8:58am Establishing care with new doctoralexandra for April 15, 2024 8:58am Fatigue April 15, 2024 8:58am Goiter April 15, 2024 8:58am Recurrent kidney stones April 15, 2 025 8:58am Abnormal TSH May 30, 2024 12:5 7pm Hypothyroid May 30, 2024 12:5 7pm Missed with d emise before 20 completed weeks of gestation May 30, 2024 12:57pm May 30, 2024 12:5 7pm Supervision of high-risk May 30, 2024 12:57pm Abnormal genetic test during M ay 2024 2:59pm Abnormal TSH June 27, 2024 2:59pm Hypothyroid June 27, 2024 2:59pm Missed with d emise before 20 completed weeks of gestation June 27, 2024 2:59pm June 27, 2024 2:59pm Supervision of high-risk June [id number] 2:59pm Abnormal genetic test during M ay 2024 2:06pm Abnormal TSH July 24, 2024 2:06p m Hypothyroid July 24, 2024 2:06p m Missed with d emise before 20 completed weeks of gestation July 24, 2024 2:06pm July 24, 2024 2:06p m Supervision of high-risk June [id number] 2:06pm Chief Complaint Admit Date EST NEW PT - WC PT April 15, 2024 8:58am ENLARGED THYROID April 19, 2024 5:04pm NOB LMP 03/24May 30, 2024 12:5 7pm 13wk ob June 27, 2024 2:59pm 17wk ob July 24, 2024 2:06p m Thyroid August 09, 2024 2:10 pm Reason for Visit Admit Date Immunization declined April 15 8:58am Acquired hypothyroidism April 15, 2 025 8:58am Establishing care with new doctor, alexandra cuadra for April 15, 2024 8:58am Fatigue April 15, 2024 8:58am Goiter April 15, 2024 8:58am Recurrent kidney stones April 15, 2 025 8:58am Abnormal TSH May 30, 2024 12:5 7pm Hypothyroid May 30, 2024 12:5 7pm Missed with d emise before 20 completed weeks of gestation May 30, 2024 12:57pm May 30, 2024 12:5 7pm Supervision of high-risk May 30, 2024 12:57pm Abnormal genetic test during M ay 2024 2:59pm Abnormal TSH June 27, 2024 2:59pm Hypothyroid June 27, 2024 2:59pm Missed with d emise before 20 completed weeks of gestation June 27, 2024 2:59pm June 27, 2024 2:59pm Supervision of high-risk June [id number] 2:59pm Abnormal genetic test during M ay 2024 2:06pm Abnormal TSH July 24, 2024 2:06p m Hypothyroid July 24, 2024 2:06p m Missed with d emise before 20 completed weeks of gestation July 24, 2024 2:06pm July 24, 2024 2:06p m Supervision of high-risk June [id number] 2:06pm Hypothyroid August 09, 2024 2:10 pm Chief Complaint Admit Date EST NEW PT - WC PT April 15, 2024 8:58am ENLARGED THYROID April 19, 2024 5:04pm NOB LMP 03/24May 30, 2024 12:5 7pm 13wk ob June 27, 2024 2:59pm 17wk ob July 24, 2024 2:06p m Chief Complaint Admit Date NOB LMP 03/24May 30, 2024 12:5 7pm 13wk ob June 27, 2024 2:59pm 17wk ob July 24, 2024 2:06p m Thyroid August 09, 2024 2:10 pm 21wk ob August 23, 2024 2:23 pm Reason for Visit Admit Date Abnormal TSH May 30, 2024 12:5 7pm Missed with d emise before 20 completed weeks of gestation May 30, 2024 12:57pm May 30, 2024 12:5 7pm Supervision of high-risk May 30, 2024 12:57pm Hypothyroid May 30, 2024 12:5 7pm Abnormal genetic test during M ay 2024 2:59pm Abnormal TSH June 27, 2024 2:59pm Missed with d emise before 20 completed weeks of gestation June 27, 2024 2:59pm June 27, 2024 2:59pm Supervision of high-risk June [id number] 2:59pm Hypothyroid June 27, 2024 2:59pm Abnormal genetic test during M ay 2024 2:06pm Abnormal TSH July 24, 2024 2:06p m Missed with d emise before 20 completed weeks of gestation July 24, 2024 2:06pm July 24, 2024 2:06p m Supervision of high-risk June [id number] 2:06pm Hypothyroid July 24, 2024 2:06p m Hypothyroid August 09, 2024 2:10 pm Abnormal genetic test during J une 2024 2:23pm Abnormal TSH August 23, 2024 2:23 pm Missed with d emise before 20 completed weeks of gestation August 23, 2024 2:23pm August 23, 2024 2:23 pm Supervision of high-risk August 23, 2024 2:23pm Hypothyroid August 23, 2024 2:23 pm Additional Source Comments INFORMATION SOURCE (unrecogn ized section and content) DATE CREATED AUTHOR 08/17/2017 [facility] DATE CREATED AUTHOR AUTHOR'S ORGANIZ ATION 07/05/2024 [facility] DATE CREATED AUTHOR AUTHOR'S ORGANIZ ATION 08/17/2024 [facility] DATE CREATED AUTHOR AUTHOR'S ORGANIZ ATION 08/22/2024 [facility] Goals (unrecognized section and content) Goals may be documented in a n alternate sectionGoals may be documented in an alternate sectionGoals may be documented in an alternate sectionGoals may be documented in an alternate sectionGoals may be documented in an alternate sectionGoals may be documented in an alternate sectionGoals may be documented in an alternate section Source Comments (unrecognize d section and content) In the event this informatio n is protected by the Federal Confidentiality of Alcohol and Drug Abuse Patient Records regulations: The Federal rules restrict any use of the information to criminally investigate or prosecute any alcohol or drug abuse patient.[facility] CenterIn the event this information is protected by the Federal Confidentiality of Alcohol and Drug Abuse Patient Records regulations: The Federal rules restrict any use of the information to criminally investigate or prosecute any alcohol or drug abuse patient.[facility] CenterIn the event this information is protected by the Federal Confidentiality of Alcohol and Drug Abuse Patient Records regulations: The Federal rules restrict any use of the information to criminally investigate or prosecute any alcohol or drug abuse patient.[facility] CenterIn the event this information is protected by the Federal Confidentiality of Alcohol and Drug Abuse Patient Records regulations: The Federal rules restrict any use of the information to criminally investigate or prosecute any alcohol or drug abuse patient.[facility] CenterIn the event this information is protected by the Federal Confidentiality of Alcohol and Drug Abuse Patient Records regulations: The Federal rules restrict any use of the information to criminally investigate or prosecute any alcohol or drug abuse patient.[facility] Reason for Visit (unrecogniz ed section and content) Reason Comments Ear Problem Right ear pain Nasal Congestion Cough Since Monday Reason Comments Chills, cheek pain, fever, achey (24 luis enrique rs) Chills upper body, sinus pressure on right cheek, generally achy. In Monday took CoVid test without definite conclusion Reason Comments Sinusitis Head pressure, heada corinne drainage pos sinus infection for 1 week Headache Reason Comments Ear Pain Left ear. Started la st night around 7 pm Reason Comments sinus pressure Congestion, duration 10 days, discolored mucus is now clear, tickled throat, non productive dry cough, drainage, using otc med interventions ineffective, unsure of meds d/t Care Teams (unrecognized sec tion and content) [employer] Assistant Manager Relationship Specialty Start Date End Date Mary Nunn MD [address] [address] PCP - General Internal Medicine 05/27/24 Team Status: Active Member Role Status Dates Dr. Mary Nunn MD Primary Care Provider Active Team Status: Inactive Member Role Status Dates No Primary Care Physician Primary Care Provider Active Start: February 09, 2024 End: February 09, 2024 Dr. Vera Love MD Attending Provider Active Start: February 09, 2024 End: February 09, 2024 Dr. Vera Love MD Referring Provider Active Start: February 09, 2024 End: February 09, 2024 Team Status: Inactive Member Role Status Dates No Primary Care Physician Primary Care Provider Active Start: March 29, 2024 End: March 29, 2024 Dr. Chas Ernst DO Attending Provider Active Start : March 29, 2024 End: March 29, 2024 Dr. Chas Ernst DO Emergency Provider Active Start : March 29, 2024 End: March 29, 2024 Team Status: Inactive Member Role Status Dates No Primary Care Physician Primary Care Provider Active Start: April 15, 2024 End: April 15, 2024 No Primary Care Physician Referring Provider Active Start: April 15, 2024 End: April 15, 2024 Dr. Mary Nunn MD Attending Provider Active Start: April 15, 2024 End: April 15, 2024 Team Status: Inactive Member Role Status Dates Dr. Mary Nunn MD Primary Care Provider Active Start: April 15, 2024 End: April 15, 2024 Dr. Mary Nunn MD Attending Provider Active Start: April 15, 2024 End: April 15, 2024 Dr. Mary Nunn MD Referring Provider Active Start: April 15, 2024 End: April 15, 2024 Team Status: Inactive Member Role Status Dates Dr. Mary Nunn MD Primary Care Provider Active Start: April 19, 2024 End: April 19, 2024 Dr. Mary Nunn MD Attending Provider Active Start: April 19, 2024 End: April 19, 2024 Dr. Mary Nunn MD Referring Provider Active Start: April 19, 2024 End: April 19, 2024 Team Status: Inactive Member Role Status Dates Dr. Mary Nunn MD Primary Care Provider Active Start: May 30, 2024 End: May 30, 2024 Dr. Mary Nunn MD Referring Provider Active Start: May 30, 2024 End: May 30, 2024 America Dudley CNM Attending Provider Active S tart: May 30, 2024 End: May 30, 2024 Team Status: Inactive Member Role Status Dates Dr. Mary Nunn MD Primary Care Provider Active Start: May 30, 2024 End: May 30, 2024 America Dudley CNM Attending Provider Active S tart: May 30, 2024 End: May 30, 2024 Team Status: Inactive Member Role Status Dates Dr. Mary Nunn MD Primary Care Provider Active Start: June 13, 2024 End: June 13, 2024 TY Camargo Attending Provider Active Start: June 13, 2024 End: June 13, 2024 TY Camargo Referring Provider Active Start: June 13, 2024 End: June 13, 2024 [employer] Assistant Manager Relationship Specialty Start Date End Date Mary Nunn MD [address] [facility] [place] [address] PCP - General Internal Medicine 05/27/24 Team Status: Inactive Member Role Status Dates Dr. Mary Nunn MD Primary Care Provider Active Start: June 27, 2024 End: June 27, 2024 Dr. Mary Nunn MD Referring Provider Active Start: June 27, 2024 End: June 27, 2024 America Dudley CNM Attending Provider Active S tart: June 27, 2024 End: June 27, 2024 Team Status: Inactive Member Role Status Dates Dr. Mary Nunn MD Primary Care Provider Active Start: July 24, 2024 End: July 24, 2024 Dr. Mary Nunn MD Referring Provider Active Start: July 24, 2024 End: July 24, 2024 Dr. Amelia Wong , Attending Provider Activ e Start: July 24, 2024 End: July 24, 2024 Team Status: Active Member Role Status Dates Dr. Mary Nunn MD Primary Care Provider Active Start: July 24, 2024 Dr. Amelia Wong , Attending Provider Activ e Start: July 24, 2024 Dr. Amelia Wong DO Referring Provider Activ e Start: July 24, 2024 Team Status: Inactive Member Role Status Dates Dr. Mary Nunn MD Primary Care Provider Active Start: July 24, 2024 End: July 24, 2024 Dr. Amelia Wong , DO Attending Provider Activ e Start: July 24, 2024 End: July 24, 2024 Dr. Amelia Wong DO Referring Provider Activ e Start: July 24, 2024 End: July 24, 2024 Team Status: Inactive Member Role Status Dates Dr. Mary Nunn MD Primary Care Provider Active Start: August 09, 2024 End: August 09, 2024 Dr. Mary Nunn MD Referring Provider Active Start: August 09, 2024 End: August 09, 2024 Dr. Meliton Herr MD Attending Provider Active Sta rt: August 09, 2024 End: August 09, 2024 Team Status: Active Member Role/Relationship Status Dates Dr. Mary Nunn MD Primary Care Provider Active Team Status: Inactive Member Role/Relationship Status Dates Dr. Mary Nunn MD Primary Care Provider Active Start: May 30, 2024 End: May 30, 2024 Dr. Mary Nunn MD Referring Provider Active Start: May 30, 2024 End: May 30, 2024 America Dudley CNM Attending Provider Active S tart: May 30, 2024 End: May 30, 2024 Team Status: Inactive Member Role/Relationship Status Dates Dr. Mary Nunn MD Primary Care Provider Active Start: May 30, 2024 End: May 30, 2024 America Dudley CNM Attending Provider Active S tart: May 30, 2024 End: May 30, 2024 Team Status: Inactive Member Role/Relationship Status Dates Dr. Mary Nunn MD Primary Care Provider Active Start: June 13, 2024 End: June 13, 2024 TY Camargo Attending Provider Active Start: June 13, 2024 End: June 13, 2024 TY Camargo Referring Provider Active Start: June 13, 2024 End: June 13, 2024 Team Status: Inactive Member Role/Relationship Status Dates Dr. Mary Nunn MD Primary Care Provider Active Start: June 27, 2024 End: June 27, 2024 Dr. Mary Nunn MD Referring Provider Active Start: June 27, 2024 End: June 27, 2024 America Dudley CNM Attending Provider Active S tart: June 27, 2024 End: June 27, 2024 Team Status: Inactive Member Role/Relationship Status Dates Dr. Mary Nunn MD Primary Care Provider Active Start: July 24, 2024 End: July 24, 2024 Dr. Mary Nunn MD Referring Provider Active Start: July 24, 2024 End: July 24, 2024 Dr. Amelia Wong DO Attending Provider Activ e Start: July 24, 2024 End: July 24, 2024 Team Status: Inactive Member Role/Relationship Status Dates Dr. Mary Nunn MD Primary Care Provider Active Start: July 24, 2024 End: July 24, 2024 Dr. Amelia Wong DO Attending Provider Activ e Start: July 24, 2024 End: July 24, 2024 Dr. Amelia Wong DO Referring Provider Activ e Start: July 24, 2024 End: July 24, 2024 Team Status: Inactive Member Role/Relationship Status Dates Dr. Mary Nunn MD Primary Care Provider Active Start: August 09, 2024 End: August 09, 2024 Dr. Mary Nunn MD Referring Provider Active Start: August 09, 2024 End: August 09, 2024 Dr. Meliton Herr MD Attending Provider Active Sta rt: August 09, 2024 End: August 09, 2024 Team Status: Inactive Member Role/Relationship Status Dates Dr. Mary Nunn MD Primary Care Provider Active Start: August 23, 2024 End: August 23, 2024 Dr. Mary Nunn MD Referring Provider Active Start: August 23, 2024 End: August 23, 2024 Devora Go CNM Attending Provider Active Start: August 23, 2024 End: August 23, 2024 Team Status: Active Member Role/Relationship Status Dates Dr. Mary Nunn MD Primary Care Provider Active Start: August 23, 2024 Devora Go CNM Attending Provider Active Start: August 23, 2024 Devora Go CNM Referring Provider Active Start: August 23, 2024 FOR RECORDS PERTAINING TO PATIENTS WHO ARE OR HAVE BEEN ENROLLED IN A CHEMICAL DEPENDENCY/SUBSTANCEABUSE PROGRAM, SOME INFORMATION MAY BE OMITTED. This clinical summary was aggregated from multiple sources. Caution should be exercised in using it in the provision of clinical care. This summary normalizes information from multiple sources, and as a consequence, information in this document may materially change the coding, format and clinical context of patient data. In addition, data may be omitted in some cases. CLINICAL DECISIONS SHOULD BE BASED ON THE PRIMARY CLINICAL RECORDS. [facility] [email or web address] provides no warranty or guarantee of the accuracy or completeness of information in this document.
[2024-08-25 06:38] LABS: Thyroid Peroxidase AB < 9 IU/mL (0-34)
== END | disposition home or self-care (01) ==
LOC: BWCLAB 15:07
PROVIDERS: Internal Medicine Endocrinology, Diabetes & Metabolism; PCP Internal Medicine; Referring Provider Registered Nurse; Visit Provider Registered Nurse
DX: O99.280 Endocrine, nutritional and metabolic diseases complicating pregnancy, unspecified trimester (principal); E03.9 Hypothyroidism, unspecified; O28.5 Abnormal chromosomal and genetic finding on antenatal screening of mother; O02.1 Missed abortion; R79.89 Other specified abnormal findings of blood chemistry; O09.90 Supervision of high risk pregnancy, unspecified, unspecified trimester
CPT/HCPCS: 36415; 84439; 84443; 84481; 86376

== ENCOUNTER → 2024-10-16 | Outpatient (CLI) | payer MEDICAID, SELFPAY ==
[2024-10-16 16:52] LABS: Hematocrit 33.4 % (37-47); Hemoglobin 11.0 g/dL (12.0-15.0); Immature Granulocytes Count 0.080 X10^3/uL (0.0-0.0); Mean Corp Hgb Conc 32.9 g/dL (32-36); Mean Corpuscular Volume 94.1 fL (81-99); Mean Platelet Vol. 11.9 fl (6.2-12.0); NRBC Flagged by Analyzer 0 % (0-5); Platelet Count 187 K/mm3 (150-450); RBC Distribution Width CV 13.5 % (11.6-14.6); RBC Distribution Width SD 46.5 fl (35.1-43.9); Red Blood Count 3.55 M/mm3 (4.2-5.4); White Blood Count 9.7 K/mm3 (4.4-11.0)
[2024-10-16 17:39] LABS: Glucose Challenge Gest 1H 50g 78 mg/dL (70-140); HIV Nonreactive (Nonreactive); Syphilis Antibodies Nonreactive (Nonreactive)
[2024-10-16 18:09] LABS: Free T3 2.8 pg/mL (2.18-3.98)
== END | disposition home or self-care (01) ==
PROVIDERS: Internal Medicine; Obstetrics & Gynecology; Registered Nurse; PCP Internal Medicine; Visit Provider Advanced Practice Midwife
DX: O09.90 Supervision of high risk pregnancy, unspecified, unspecified trimester (principal); Z13.1 Encounter for screening for diabetes mellitus; O99.280 Endocrine, nutritional and metabolic diseases complicating pregnancy, unspecified trimester; E03.9 Hypothyroidism, unspecified; R79.89 Other specified abnormal findings of blood chemistry; Z3A.00 Weeks of gestation of pregnancy not specified
CPT/HCPCS: 36415; 82950; 84439; 84443; 84481; 85025; 86703; 86780

== ENCOUNTER → 2024-11-11 | Outpatient (CLI) | payer MEDICAID, SELFPAY ==
--- NOTE | 2024-11-11 11:42 | US_ITS ---
PROCEDURE: OB LIMITED WITH BIOMETRICS 11/11/2024 REASON FOR EXAM: WELLBEING TECHNIQUE: Procedure Code: USOBGROWTH Modality: US Procedure: OB LIMITED WITH BIOMETRICS COMPARISON: None FINDINGS Number: 1 Position: Vertex Placental Position: Anterior and not low-lying. Placental Abnormalities: No evidence of previa. DIMENSIONS: Biparietal Diameter: 9 cm: 36 weeks and 3 days: 9 9 percentile/ Head Circumference: 32.5 cm: 36 weeks and 5 days: 94 percentile/ Abdominal Circumference: 32.3 cm: 36 weeks and 4 days: 92 percentile/ Femur Length: 6.4 cm: 33 weeks and 1 day: 38 percentile/ ESTIMATED WEIGHT: 2458 g plus/-364 g ESTIMATED WEIGHT PERCENTILE (24+ weeks): 82nd ESTIMATED GESTATIONAL AGE: Baseline: 33 weeks and 1 day By Ultrasound: 36 weeks and 1 day ESTIMATED DATE OF DELIVERY: Baseline: December 29, 2024 By Ultrasound: December 08, 2024 BIOPHYSICAL ASSESSMENT: Amniotic Fluid Volume: 3.6 cm Amniotic Fluid Index: 9.8 cm (8-24 cm normal range) Cardiac Motion: 140 beats per minute (average) Trunk and Limb Motion: Present. MATERNAL ANATOMY: Adnexa: Neither maternal ovary is successfully identified. US/OB Limited With Biometrics IMPRESSION: Single live intrauterine gestation with a mean gestational age of 36 weeks and 1 day. Reading Location: [place] [id number]
== END | disposition home or self-care (01) ==
LOC: US 11:41
PROVIDERS: PCP Internal Medicine; Referring Provider Obstetrics & Gynecology; Visit Provider Obstetrics & Gynecology
DX: O28.5 Abnormal chromosomal and genetic finding on antenatal screening of mother (principal); Z3A.32 32 weeks gestation of pregnancy
CPT/HCPCS: 76816

== ENCOUNTER → 2024-11-18 | Outpatient (CLI) | payer MEDICAID, SELFPAY ==
--- NOTE | 2024-11-18 17:57 | US_ITS ---
PROCEDURE: OB LIMITED (NO BIOMETRICS) 11/18/2024 REASON FOR EXAM: ES TECHNIQUE: Procedure Code: USOBL Modality: US Procedure: OB LIMITED (NO BIOMETRICS) COMPARISON: 11/11/2024. FINDINGS * position: Cephalic * cardiac activity: Present, 167 bpm *Cervical length: 3.5 cm, cervical os closed *Amniotic fluid: Maximal vertical pocket 6.2 cm, ES 13.4 cm (within normal limits) *Placenta: Fundal, anterior, not low-lying, grade 1 * age by LMP: 34 weeks 1 day *CODY by LMP: 12/29/2024 US/OB Limited (No Biometrics) IMPRESSION: Single live intrauterine in cephalic presentation at 34 weeks 1 day b y LMP. Normal cardiac activity. Normal amniotic fluid volume (ES 13.4 cm). Placenta anterior/fundal, not low-lying, grade 1. Cervix measures 3.5 cm with closed os. Reading Location: [id number]
== END | disposition home or self-care (01) ==
LOC: US 17:53
PROVIDERS: PCP Internal Medicine; Referring Provider Obstetrics & Gynecology; Visit Provider Obstetrics & Gynecology
DX: Z34.93 Encounter for supervision of normal pregnancy, unspecified, third trimester (principal); Z3A.34 34 weeks gestation of pregnancy
CPT/HCPCS: 76815

== ENCOUNTER → 2024-11-25 | Outpatient (CLI) | payer MEDICAID, SELFPAY ==
--- OUTSIDE RECORDS SUMMARY | 2024-08-21 13:07 | XMS RPT_ITS ---
Author Name Auto Generated Organization [facility] Care Team Providers Care Note Taker Name Role Phone MARY BROOKS Primary Care Unavailable SERG BROWN Attending Unavailable MARY BROOKS Primary Care Unavailable SERG BROWN Attending Unavailable NO PRIMARY MD SHERON Primary Care Unavailable AMERICA DUDLEY Attending Unavailable AMERICA DUDLEY Referring Unavailable JOAQUIN AKBAR Attending Unavailable MARY BROOKS Primary Care Unavailable ANITRA GARZA Referring Unavailable PROBLEMS DATE TYPE CONDITION / CODE ATTENDING STATUS [facility] 07/02/2024 Active Acute non-recurr ent frontal sinusitis / J01.10(ICD-10) SERG BROWN [facility] 07/02/2024 Active 14 weeks gestati on of (HCC) / Z3A.14(ICD-10) SERG BROWN [facility] 05/27/2024 Active Acute otitis med ia, left / H66.92(ICD-10) SERG BROWN [facility] er PROCEDURES No Procedure Records Found RESULTS PROGRESS NOTE Observed: 08/21/2024 1:00 PM Status: COMPLETED Source: [facility] New patient 08/22/2024 RE: Vesta Ilajorgito France : 1995 AGE: 29 y.o. CSN#: [id number] Gestational Age: 21 Weeks Delivery Hospital: [facility] Reason for visit: Chief Complaint Patient presents with ECHO echo for suboptimal cardiac views, abnormal cell free DNA with increased risk for XYY. Other indications:Maternal hypothyroidism for which she remains on levothyroxine. OB History 6 Para 4 Term AB Living SAB IAB Ectopic Multiple Live Births Counseling and/or coordination of care (face to face time in the office/outpatient setting or floor/unit time in the hospital) was greater than 40 minutes which is more than 50% of the total time of 60 minutes spent on the encounter. In addition, the following items were performed before, during, and after this visit: Synthesis of current imaging findings. Results for orders placed or performed in visit on 08/21/24 Echo [facility] [place] [address] [email or web address] Echocardiogram Report M-mode, complete 2D, complete spectral Doppler, and color Doppler PATIENT: Vesta France STUDY DATE/TIME: Aug 21 2024 1:27PM HEIGHT: 167.6cm : 1995 WEIGHT: 71.2kg AGE: 29year(s) BSA/BMI: 1.83m^2 / 25.3kg/m^2 GENDER: F BP: 122 / 73 LOCATION: [facility] REFERRING PHYSICIAN: Anitra Garza Cnp ORDERING PROVIDER: Anitra Garza Cnp READING PHYSICIAN: NEIDA Cook MOLDER MACHINE: Kylah Chen RDCS SUMMARY: No significant congenital heart disease identified. 1. Normal echocardiogram. 2. Normal biventricular size and function. 3. No atrioventricular valve regurgitation. 4. Normal three vessel view, main pulmonary artery 5.2 mm, aorta 4.7 mm and superior vena cava 2.0 mm. 5. Normally related great arteries. 6. Left aortic arch with left patent ductus arteriosus. 7. Normal systemic and pulmonary venous connections. 8. This study is limited in evaluating minor valve abnormalities, septal defects, partial anomalous pulmonary venous connection, and aortic arch abnormalities. 9. The above findings, including the limitations, were discussed with the patient. 10. Abnormal cell free DNA with XYY. Recommendations: follow-up if abrading machine tender hears a heart murmur or otherwise clinically indicated. REASON FOR EXAM: Abnormal CFDNA, suboptimal cardiac views. : : - Maternal age: 29yr. - : 6. - Parity: 4. - Estimated delivery date: 12/29/2024. - Gestational age: 21 [id number]. STUDY AND PROCEDURE DATA: The patient is . Procedure Description: New ([id number]) . Study status: Routine. Location: lab. Procedure: Transabdominal echocardiogram was performed for congenital heart disease evaluation. Patient status: Outpatient. Blood pressure: 122/73 FINDINGS: DESCRIPTION One fetus is present. Normal three vessel view, main pulmonary artery 5.2 mm, aorta 4.7 mm and superior vena cava 2.0 mm. The rhythm is sinus rhythm, with a heart rate of 149bpm. The position is vertex. Normal Doppler pattern of the ductus venosus, umbilical artery, and vein. Three vessel cord. ANATOMIC RELATIONSHIPS - Normal viceral situs. Left sided stomach. Left sided cardiac apex (levocardia). Normally related great vessels. VEINS AND ATRIA Atrial septum - There is a patent foramen ovale. There is a [id number] shunt. Left atrium: - The atrium is normal in size. Right atrium: - The atrium is normal in size. Systemic veins - Inferior vena cava and superior vena cava seen entering normally into the right atrium. Pulmonary veins - There are at least 2 out of 4 pulmonary veins seen entering normally into the left atrium, with normal Doppler pattern. A-V CANAL Tricuspid valve - The valve is structurally normal. There is no regurgitation. - There is normal biphasic inflow spectral Doppler. Mitral valve - The valve is structurally normal. There is no regurgitation. - There is normal biphasic inflow spectral Doppler. VENTRICLES Right ventricle - The cavity size is normal. Wall thickness is normal. Systolic function is qualitatively normal. Ventricular septum - There is no evidence of a ventricular septal defect. Left ventricle - The cavity size is normal. Wall thickness is normal. Systolic function is quantitatively normal. The fractional shortening (MM) is 33%. The ejection fraction (MM, Teichholz) is 68%. CONOTRUNCUS Aortic valve - The valve is structurally normal. There is no stenosis. There is no regurgitation. Pulmonic valve - The valve is structurally normal. There is no stenosis. There is no regurgitation. GREAT ARTERIES Aorta and systemic arteries: - Left aortic arch and normal branching pattern is demonstrated. Normal ductal arch seen. Normally related great arteries. Pulmonary arteries - The proximal branch pulmonary arteries are normal. - Main pulmonary artery: The artery is of normal size. Systemic-pulmonary shunts - Patent ductus arteriosus. Normal pulsed wave Doppler pattern. PERICARDIUM - There is no significant pericardial effusion. Measurements Value Ref Z BPD 5.48 cm 4.62 - 5.63 1.4 Head circum 19.85 cm ---- Abdominal circum 16.39 cm ---- Femur length 3.83 cm 3.00 - 4.36 0.4 Humerus length 3.69 cm ---- Transcerebellar diameter 2.29 cm ---- Weight (est) 458 g ---- Cardiac area 36.70 mm^2 ---- Thoracic area 139.4 mm^2 ---- Distal AAo diam 0.47 cm 0.29 - 0.49 1.6 CA/TA 0.26 ---- Femur/BPD 0.7 ---- Main PA ID 0.52 cm 0.33 - 0.56 1.3 Left PA ID 0.20 cm 0.15 - 0.28 -0.5 Right PA ID 0.26 cm 0.16 - 0.28 1.4 TrV peak E 0.37 m/sec ---- TrV peak A 0.57 m/sec ---- MiV peak E 0.31 m/sec ---- MiV peak A 0.51 m/sec ---- PuV peak v 0.57 m/sec ---- AoV peak v 0.7 m/sec ---- Left ventricle Value Ref Z CODY, MM 0.80 cm 0.56 - 0.97 0.3 ESD, MM 0.53 cm ---- FS, MM 33 % ---- Mid-wall FS, MM 15 % ---- PW, ED MM 0.14 cm ---- PW, ES MM 0.31 cm ---- PW/ID ratio, ED MM 0.18 ---- IVS/PW ratio, ED MM 1.43 ---- Rel thickness, ED MM 0.35 ---- EF, MM Teich. 68 % ---- Mass, MM 1 g ---- Mass/bsa, MM 1 g/m^2 ---- Mass/ht, MM 1 g/m ---- Mass/ht^2.7, MM 0 g/m^2.7 ---- Right ventricle Value Ref Z AW thickness, ED MM 0.23 cm ---- CODY, MM 0.9 cm ---- Ventricular septum Value Ref Z IVS, ED MM 0.20 cm ---- IVS, ES MM 0.20 cm ---- Legend: (L) and (H) brittany values outside specified reference range. mejía values inside specified reference range. JANEY ICD Codes: (O35.8XX0) Maternal care for other (suspected) abnormality and damage not applicable or unspecified. Interpreted and electronically signed by NEIDA Cook 08/21/2024 15:58 PROGRESS Observed: 07/02/2024 6:43 PM Status: COMPLETED Source: [facility] HNO ID: [id number] Author: SERG BROWN APRN.INSULATOR APPRENTICE Service: ? Author Type: Nurse Practitioner Type: Progress Notes Filed: 07/02/2024 18:50 Note Text: [facility] [place] [address] [facility] [address] Dept: [phone] Dept Subjective Subjective Vesta France is a 28 year old female who presents with sinus pressure (Congestion, duration 10 days, discolored mucus is now clear, tickled throat, non productive dry cough, drainage, using otc med interventions ineffective, unsure of meds d/t ) HPI: A 28-year-old female comes in with complaints of 10 days worth of nasal congestion and sinus pressure. Patient states she is experiencing some slight dry cough but no phlegm with it. Denies fevers or chills. States that she has utilized saline solution that help clear her nasal passages which have only minimally provide some relief. States that longterm through her symptoms she thought she was improving for about a day or 2 but then worsened again. No other symptoms at this time. Aside from symptoms as described above, patient has no other complaints at this time. Review of Systems Constitutional: Negative for chills, fever and malaise/fatigue. HENT: Positive for congestion and sinus pain. Negative for ear discharge, ear pain and sore throat. Respiratory: Positive for cough (dry). Negative for sputum production, shortness of breath and wheezing. Cardiovascular: Negative for chest pain. Musculoskeletal: Negative for myalgias. Neurological: Negative for headaches. Endo/Heme/Allergies: Negative for environmental allergies. ALLERGIES No Known Allergies Current Outpatient Medications on File Prior to Visit Medication Sig levothyroxine (SYNTHROID) 112 mcg tablet Take 1 tablet by mouth once daily. (Patient taking differently: Take 100 mcg by mouth once daily.) [id number] ( MULTI-DHA,WITH VIT K,) 27 mg iron-800 mcg-260 mg Take by mouth. No current facility-administered medications on file prior to visit. There is no problem list on file for this patient. Social History Tobacco Use Smoking status: Never Smokeless tobacco: Never Vaping Use Vaping status: Never Used Substance Use Topics Alcohol use: Never Drug use: Never Objective Objective BP 110/76 Pulse 95 Temp 37.2 ?C (98.9 ?F) Resp 22 Wt 71.2 kg (157 lb) LMP 12/10/2022 (Exact Date) SpO2 97% No Physical Exam Vitals and nursing note reviewed. Constitutional: General: She is awake. She is not in acute distress. Appearance: Normal appearance. She is well-developed and well-groomed. She is not ill-appearing, toxic-appearing or diaphoretic. HENT: Head: Normocephalic and atraumatic. Right Ear: Ear canal and external ear normal. Tympanic membrane is bulging. Left Ear: Ear canal and external ear normal. Tympanic membrane is bulging. Nose: Right Sinus: Maxillary sinus tenderness and frontal sinus tenderness present. Left Sinus: Maxillary sinus tenderness and frontal sinus tenderness present. Mouth/Throat: Lips: [place]. Mouth: Mucous membranes are moist. No oral lesions. Pharynx: Oropharynx is clear. Posterior oropharyngeal erythema present. No oropharyngeal exudate. Tonsils: No tonsillar exudate or tonsillar abscesses. 1+ on the right. 1+ on the left. Comments: +PND Eyes: Conjunctiva/sclera: Conjunctivae normal. Pulmonary: Effort: Pulmonary effort is normal. Musculoskeletal: General: Normal range of motion. Cervical back: Normal range of motion and neck supple. Lymphadenopathy: Head: Right side of head: No submandibular or tonsillar adenopathy. Left side of head: No submandibular or tonsillar adenopathy. Cervical: No cervical adenopathy. Skin: General: Skin is warm and dry. Neurological: General: No focal deficit present. Mental Status: She is alert and oriented to person, place, and time. Psychiatric: Behavior: Behavior is cooperative. Assessment/MDM ASSESSMENT/PLAN: 1. Acute non-recurrent frontal sinusitis - ICD9: 461.1, ICD10: J01.10 (primary diagnosis) - AMOXICILLIN 875 MG TABLET 2. 14 weeks gestation of (HCC) - ICD9: V22.2, ICD10: Z3A.14 Serg Brown APRN.INSULATOR APPRENTICE Differential Diagnoses - Sinusitis is more likely for the following reason(s): suggested by HANDP Disposition The patient was discharged. Due to length of time that patient has been experiencing her symptoms, we will start her on amoxicillin considering she is 14 weeks . Patient to follow-up with PCP in 3 to 5 days symptoms persist or sooner for worsening symptoms. Patient states understanding is agreeable to plan of care. Patient given educational materials - see patient instructions. Discussed use, benefit, and side effects of prescribed medications. All patient questions answered. Pt voiced understanding and agrees with treatment plan. Patient advised if symptoms worsen or persist, they are to follow up with PCP or ED. Patient agreeable with treatment plan. Ruperto was used to dictate this note. Serg Brown APRN-RESOLUTION ANALYST 07/02/2024 6:43 PM CNOV Observed: 07/02/2024 6:30 PM Status: COMPLETED Source: [facility] Office Visit ([facility]) VESTA FRANCE ([id number]) 1995 F Date Time Provider Department 07/02/24 6:30 PM SERG BROWN [facility] During your visit today, we recorded the following information about you: Temperature Pulse Respiration Blood pressure 98.9 degrees 95/minute 22/minute 110/76 Weight Last Period 71.2 kg 12/10/22 Serg Brown, [employer]PER[employer].INSULATOR APPRENTICE 07/02/2024 6:[address] [facility] [place] [address] [facility] [place] [address] Dept: [phone] Dept Subjective Subjective Vesta France is a 28 year old female who presents with sinus pressure (Congestion, duration 10 days, discolored mucus is now clear, tickled throat, non productive dry cough, drainage, using otc med interventions ineffective, unsure of meds d/t ) HPI: A 28-year-old female comes in with complaints of 10 days worth of nasal congestion and sinus pressure. Patient states she is experiencing some slight dry cough but no phlegm with it. Denies fevers or chills. States that she has utilized saline solution that help clear her nasal passages which have only minimally provide some relief. States that longterm through her symptoms she thought she was improving for about a day or 2 but then worsened again. No other symptoms at this time. Aside from symptoms as described above, patient has no other complaints at this time. Review of Systems Constitutional: Negative for chills, fever and malaise/fatigue. HENT: Positive for congestion and sinus pain. Negative for ear discharge, ear pain and sore throat. Respiratory: Positive for cough (dry). Negative for sputum production, shortness of breath and wheezing. Cardiovascular: Negative for chest pain. Musculoskeletal: Negative for myalgias. Neurological: Negative for headaches. Endo/Heme/Allergies: Negative for environmental allergies. ALLERGIES No Known Allergies Current Outpatient Medications on File Prior to Visit Medication Sig levothyroxine (SYNTHROID) 112 mcg tablet Take 1 tablet by mouth once daily. (Patient taking differently: Take 100 mcg by mouth once daily.) [id number] ( MULTI-DHA,WITH VIT K,) 27 mg iron-800 mcg-260 mg Take by mouth. No current facility-administered medications on file prior to visit. There is no problem list on file for this patient. Social History Tobacco Use Smoking status: Never Smokeless tobacco: Never Vaping Use Vaping status: Never Used Substance Use Topics Alcohol use: Never Drug use: Never Objective Objective BP 110/76 Pulse 95 Temp 37.2 ?C (98.9 ?F) Resp 22 Wt 71.2 kg (157 lb) LMP 12/10/2022 (Exact Date) SpO2 97% No Physical Exam Vitals and nursing note reviewed. Constitutional: General: She is awake. She is not in acute distress. Appearance: Normal appearance. She is well-developed and well-groomed. She is not ill-appearing, toxic-appearing or diaphoretic. HENT: Head: Normocephalic and atraumatic. Right Ear: Ear canal and external ear normal. Tympanic membrane is bulging. Left Ear: Ear canal and external ear normal. Tympanic membrane is bulging. Nose: Right Sinus: Maxillary sinus tenderness and frontal sinus tenderness present. Left Sinus: Maxillary sinus tenderness and frontal sinus tenderness present. Mouth/Throat: Lips: [place]. Mouth: Mucous membranes are moist. No oral lesions. Pharynx: Oropharynx is clear. Posterior oropharyngeal erythema present. No oropharyngeal exudate. Tonsils: No tonsillar exudate or tonsillar abscesses. 1+ on the right. 1+ on the left. Comments: +PND Eyes: Conjunctiva/sclera: Conjunctivae normal. Pulmonary: Effort: Pulmonary effort is normal. Musculoskeletal: General: Normal range of motion. Cervical back: Normal range of motion and neck supple. Lymphadenopathy: Head: Right side of head: No submandibular or tonsillar adenopathy. Left side of head: No submandibular or tonsillar adenopathy. Cervical: No cervical adenopathy. Skin: General: Skin is warm and dry. Neurological: General: No focal deficit present. Mental Status: She is alert and oriented to person, place, and time. Psychiatric: Behavior: Behavior is cooperative. Assessment/MDM ASSESSMENT/PLAN: 1. Acute non-recurrent frontal sinusitis - ICD9: 461.1, ICD10: J01.10 (primary diagnosis) - AMOXICILLIN 875 MG TABLET 2. 14 weeks gestation of ([facility]) - ICD9: V22.2, ICD10: Z3A.14 Serg Brown, DEEP.INSULATOR APPRENTICE Differential Diagnoses - Sinusitis is more likely for the following reason(s): suggested by HANDP Disposition The patient was discharged. Due to length of time that patient has been experiencing her symptoms, we will start her on amoxicillin considering she is 14 weeks . Patient to follow-up with PCP in 3 to 5 days symptoms persist or sooner for worsening symptoms. Patient states understanding is agreeable to plan of care. Patient given educational materials - see patient instructions. Discussed use, benefit, and side effects of prescribed medications. All patient questions answered. Pt voiced understanding and agrees with treatment plan. Patient advised if symptoms worsen or persist, they are to follow up with PCP or ED. Patient agreeable with treatment plan. Ruperto was used to dictate this note. Serg Brown APRN-RESOLUTION ANALYST 07/02/2024 6:43 PM Serg Brown APRN.INSULATOR APPRENTICE 07/02/2024 6:46 PM Signed [facility] [place] [address] [place], [place] [address] Emergency Department Diagnosis: Assessment SINUSITIS: You have sinusitis, an infection of the sinus cavities around the nose. This infection usually follows a respiratory illness; it can also be related to allergies, changes in atmospheric pressure (flying, diving), or anything that blocks nasal drainage. Symptoms include: headache, facial pain, a thick nasal discharge, congestion, and cough. The treatment includes antibiotic therapy, increasing oral fluids, and pain medication if needed. Nose spray decongestants (Afrin, Raulito-Synephrine) and oral decongestants may be needed to reduce congestion and drainage. Rarely the sinus must be irrigated to remove the infected material. Sinusitis can lead to serious complications by spreading to other areas such as the eye or brain. Please call your doctor or return here right away if you have any of the following more serious symptoms: Unusual swelling around the eye or trouble seeing. Increasing pain, severe headache, or toothache. Nausea, vomiting, or unusual drowsiness. Allergies As of Date: 07/02/2024 (No Known Allergies) Date Reviewed: 07/02/2024 Reviewed by: Serg Brown APRN.INSULATOR APPRENTICE - Fully Assessed Reason for Visit: sinus pressure [Other] Cmt: Congestion, duration 10 days, discolored mucus is now clear, tickled throat, non productive dry cough, drainage, using otc med interventions ineffective, unsure of meds d/t Primary Visit Diagnosis:Acute non-recurrent frontal sinusitis [J01.10] Other Visit Diagnosis:14 weeks gestation of (HCC) [Z3A.14] Order(s):amoxicillin (AMOXIL) 875 mg tabletTake 1 tablet by mouth two times a day for 10 days.Disp: 20 tabletRfl: 0 Prescriptions as of 07/02/2024 - amoxicillin (AMOXIL) 875 mg tablet Take 1 tablet by mouth two times a day for 10 days. - levothyroxine (SYNTHROID) 112 mcg tablet Take 1 tablet by mouth once daily. - [id number] ( MULTI-DHA,WITH VIT K,) 27 mg iron-800 mcg-260 mg Take by mouth. Problem List As Of Date: 07/02/2024 (None) Other instructions from your clinician: [facility] [place] [address] [place], [place] [address] Emergency Department Diagnosis: Assessment SINUSITIS: You have sinusitis, an infection of the sinus cavities around the nose. This infection usually follows a respiratory illness; it can also be related to allergies, changes in atmospheric pressure (flying, diving), or anything that blocks nasal drainage. Symptoms include: headache, facial pain, a thick nasal discharge, congestion, and cough. The treatment includes antibiotic therapy, increasing oral fluids, and pain medication if needed. Nose spray decongestants (Afrin, Raulito-Synephrine) and oral decongestants may be needed to reduce congestion and drainage. Rarely the sinus must be irrigated to remove the infected material. Sinusitis can lead to serious complications by spreading to other areas such as the eye or brain. Please call your doctor or return here right away if you have any of the following more serious symptoms: Unusual swelling around the eye or trouble seeing. Increasing pain, severe headache, or toothache. Nausea, vomiting, or unusual drowsiness. Prescriptions ordered this encounter Disp Refills Start End AMOXICILLIN 875 MG TABLET 20 t* 0 07/02/2024 07/12/2024 Route: ORAL Sig: Take 1 tablet by mouth two times a day for 10 days. Medications Discontinued During This Encounter Prescriptions - B cmplx 4/vit D3/C/folic/zinc (VITAL-D RX ORAL) (Discontinued) Reported on 05/27/2024 - methylPREDNISolone (MEDROL, PRICILLA,) 4 mg Dose-Pack (Discontinued) Reported on 05/27/2024 Level of Service: OFFICE/OUTPATIENT ESTABLISHED LOW [facility] 20 MIN [13137] Encounter Status:Closed by SERG BROWN on 07/02/24 PROGRESS Observed: 05/27/2024 5:11 PM Status: COMPLETED Source: [facility] HNO ID: [id number] Author: SERG BROWN APRN.INSULATOR APPRENTICE Service: ? Author Type: Nurse Practitioner Type: Progress Notes Filed: 05/27/2024 17:29 Note Text: [facility] [place] [address] [facility] [place] [address] Dept: [phone] Dept Subjective Subjective Vesta France is a 28 year old female who presents with Ear Pain (Left ear. Started last night around 7 pm ) HPI: A 28-year-old female comes in with complaints of left ear pain that started last night. Patient states she has had about a week worth of congestion as well as her children have had similar symptoms. Patient states she has utilized some Tylenol with minimal relief. Does not have an extensive history of ear infections. No other complaints at this time. Aside from symptoms as described above, patient has no other complaints at this time. Review of Systems Constitutional: Negative for chills, fever and malaise/fatigue. HENT: Positive for congestion and ear pain. Negative for ear discharge, sinus pain and sore throat. Respiratory: Negative for cough, shortness of breath and wheezing. Cardiovascular: Negative for chest pain. Musculoskeletal: Negative for myalgias. Neurological: Negative for headaches. Endo/Heme/Allergies: Negative for environmental allergies. ALLERGIES No Known Allergies Current Outpatient Medications on File Prior to Visit Medication Sig levothyroxine (SYNTHROID) 112 mcg tablet Take 1 tablet by mouth once daily. [id number] ( MULTI-DHA,WITH VIT K,) 27 mg iron-800 mcg-260 mg Take by mouth. methylPREDNISolone (MEDROL, PRICILLA,) 4 mg Dose-Pack Take by mouth per package instructions (Patient not taking: Reported on 05/27/2024) B cmplx 4/vit D3/C/folic/zinc (VITAL-D RX ORAL) Take by mouth. (Patient not taking: Reported on 05/27/2024) No current facility-administered medications on file prior to visit. There is no problem list on file for this patient. Social History Tobacco Use Smoking status: Never Smokeless tobacco: Never Vaping Use Vaping status: Never Used Substance Use Topics Alcohol use: Never Drug use: Never Objective Objective BP 104/71 (BP Site: Left Arm, BP Position: Sitting, BP Cuff Size: Regular Adult) Pulse 93 Temp 36.6 ?C (97.9 ?F) (Temporal) Resp 18 Wt 74.8 kg (164 lb 12.8 oz) LMP 12/10/2022 (Approximate) Physical Exam Vitals and nursing note reviewed. Constitutional: General: She is not in acute distress. Appearance: Normal appearance. She is normal weight. She is not ill-appearing, toxic-appearing or diaphoretic. HENT: Head: Normocephalic and atraumatic. Right Ear: Ear canal and external ear normal. A middle ear effusion is present. Tympanic membrane is bulging. Tympanic membrane is not injected or erythematous. Left Ear: Ear canal and external ear normal. A middle ear effusion (Purulent drainage) is present. Tympanic membrane is injected, erythematous and bulging. Eyes: Conjunctiva/sclera: Conjunctivae normal. Pulmonary: Effort: Pulmonary effort is normal. Musculoskeletal: General: Normal range of motion. Cervical back: Normal range of motion and neck supple. Skin: General: Skin is warm and dry. Neurological: General: No focal deficit present. Mental Status: She is alert and oriented to person, place, and time. Psychiatric: Mood and Affect: Mood normal. Behavior: Behavior normal. Assessment/MDM ASSESSMENT/PLAN: 1. Acute otitis media, left - ICD9: 382.9, ICD10: H66.92 - AMOXICILLIN 875 MG TABLET Serg Brown APRN.INSULATOR APPRENTICE Differential Diagnoses - Left dysphagia is more likely for the following reason(s): suggested by HANDP Disposition The patient was discharged. Patient given educational materials - see patient instructions. Discussed use, benefit, and side effects of prescribed medications. All patient questions answered. Pt voiced understanding and agrees with treatment plan. Patient advised if symptoms worsen or persist, they are to follow up with PCP or ED. Patient agreeable with treatment plan. Ruperto was used to dictate this note. Serg Brown APRN-RESOLUTION ANALYST 05/27/2024 5:11 PM CNOV Observed: 05/27/2024 4:45 PM Status: COMPLETED Source: [facility] Office Visit ([facility]) VESTA FRANCE ([id number]) 1995 F Date Time Provider Department 05/27/24 4:45 PM SERG BROWN [facility] During your visit today, we recorded the following information about you: Temperature Pulse Respiration Blood pressure 97.9 degrees 93/minute 18/minute 104/71 Weight 74.8 kg Serg Brown, [employer].INSULATOR APPRENTICE 05/27/2024 5:[address] [facility] [address] [id number] Dept: [phone] Dept Subjective Subjective Vesta France is a 28 year old female who presents with Ear Pain (Left ear. Started last night around 7 pm ) HPI: A 28-year-old female comes in with complaints of left ear pain that started last night. Patient states she has had about a week worth of congestion as well as her children have had similar symptoms. Patient states she has utilized some Tylenol with minimal relief. Does not have an extensive history of ear infections. No other complaints at this time. Aside from symptoms as described above, patient has no other complaints at this time. Review of Systems Constitutional: Negative for chills, fever and malaise/fatigue. HENT: Positive for congestion and ear pain. Negative for ear discharge, sinus pain and sore throat. Respiratory: Negative for cough, shortness of breath and wheezing. Cardiovascular: Negative for chest pain. Musculoskeletal: Negative for myalgias. Neurological: Negative for headaches. Endo/Heme/Allergies: Negative for environmental allergies. ALLERGIES No Known Allergies Current Outpatient Medications on File Prior to Visit Medication Sig levothyroxine (SYNTHROID) 112 mcg tablet Take 1 tablet by mouth once daily. [id number] ( MULTI-DHA,WITH VIT K,) 27 mg iron-800 mcg-260 mg Take by mouth. methylPREDNISolone (MEDROL, PRICILLA,) 4 mg Dose-Pack Take by mouth per package instructions (Patient not taking: Reported on 05/27/2024) B cmplx 4/vit D3/C/folic/zinc (VITAL-D RX ORAL) Take by mouth. (Patient not taking: Reported on 05/27/2024) No current facility-administered medications on file prior to visit. There is no problem list on file for this patient. Social History Tobacco Use Smoking status: Never Smokeless tobacco: Never Vaping Use Vaping status: Never Used Substance Use Topics Alcohol use: Never Drug use: Never Objective Objective BP 104/71 (BP Site: Left Arm, BP Position: Sitting, BP Cuff Size: Regular Adult) Pulse 93 Temp 36.6 ?C (97.9 ?F) (Temporal) Resp 18 Wt 74.8 kg (164 lb 12.8 oz) LMP 12/10/2022 (Approximate) Physical Exam Vitals and nursing note reviewed. Constitutional: General: She is not in acute distress. Appearance: Normal appearance. She is normal weight. She is not ill-appearing, toxic-appearing or diaphoretic. HENT: Head: Normocephalic and atraumatic. Right Ear: Ear canal and external ear normal. A middle ear effusion is present. Tympanic membrane is bulging. Tympanic membrane is not injected or erythematous. Left Ear: Ear canal and external ear normal. A middle ear effusion (Purulent drainage) is present. Tympanic membrane is injected, erythematous and bulging. Eyes: Conjunctiva/sclera: Conjunctivae normal. Pulmonary: Effort: Pulmonary effort is normal. Musculoskeletal: General: Normal range of motion. Cervical back: Normal range of motion and neck supple. Skin: General: Skin is warm and dry. Neurological: General: No focal deficit present. Mental Status: She is alert and oriented to person, place, and time. Psychiatric: Mood and Affect: Mood normal. Behavior: Behavior normal. Assessment/MDM ASSESSMENT/PLAN: 1. Acute otitis media, left - ICD9: 382.9, ICD10: H66.92 - AMOXICILLIN 875 MG TABLET Serg Brown APRN.INSULATOR APPRENTICE Differential Diagnoses - Left dysphagia is more likely for the following reason(s): suggested by HANDP Disposition The patient was discharged. Patient given educational materials - see patient instructions. Discussed use, benefit, and side effects of prescribed medications. All patient questions answered. Pt voiced understanding and agrees with treatment plan. Patient advised if symptoms worsen or persist, they are to follow up with PCP or ED. Patient agreeable with treatment plan. Ruperto was used to dictate this note. Serg Brown APRN-RESOLUTION ANALYST 05/27/2024 5:11 PM Serg Brown APRN.INSULATOR APPRENTICE 05/27/2024 5:13 PM Signed OTITIS MEDIA GENERAL INFORMATION: Otitis media is an infection of the middle ear. The middle ear sits behind the eardrum. This infection may be caused by a virus or bacteria and often follows a cold. Children often have repeat ear infections. Otitis media is not contagious. INSTRUCTIONS: 1. An antibiotic has been prescribed. It should be taken exactly as prescribed. Do not stop the medicine even if the symptoms go away. 2. Glfj-cvx-wscvkkm pain medication may be taken or other pain medication as prescribed by the doctor. 3. Nothing should be placed in the ear unless instructed by your doctor. 4. The patient may return to school/daycare or work when the temperature is normal (98.6 F or 37 C). 5. The patient should not swim while the ear is infected. CONTACT YOUR DOCTOR IF YOU OR YOUR CHILD: 1. Does not feel better within 36 hours. 2. Develops a temperature over 102E F (39E C). 3. Starts vomiting or has diarrhea. 4. Develops drainage from the affected ear. 5. Has any new problem that may be related to the medicine prescribed. RETURN TO THE ED IF: 1. You or your child has a severe headache or pain around the ear. 2. You or your child notice swelling around the ear. 3. You or your child has a seizure (convulsion), twitching of the facial muscles, or passes out. 4. You or your child is dizzy, has a stiff neck, or cannot walk or talk normally. 5. Your child becomes more irritable or listless (not interested in his or her surroundings, does not get soothed by you holding him or her). Allergies As of Date: 05/27/2024 (No Known Allergies) Date Reviewed: 05/27/2024 Reviewed by: Serg Brown APRN.INSULATOR APPRENTICE - Fully Assessed Reason for Visit: Ear Pain [817] Cmt: Left ear. Started last night around 7 pm Primary Visit Diagnosis:Acute otitis media, left [H66.92] Order(s):amoxicillin (AMOXIL) 875 mg tabletTake 1 tablet by mouth two times a day for 7 days.Disp: 14 tabletRfl: 0 Prescriptions as of 05/27/2024 - levothyroxine (SYNTHROID) 112 mcg tablet Take 1 tablet by mouth once daily. - amoxicillin (AMOXIL) 875 mg tablet Take 1 tablet by mouth two times a day for 7 days. - methylPREDNISolone (MEDROL, PRICILLA,) 4 mg Dose-Pack Take by mouth per package instructions - [id number] ( MULTI-DHA,WITH VIT K,) 27 mg iron-800 mcg-260 mg Take by mouth. - B cmplx 4/vit D3/C/folic/zinc (VITAL-D RX ORAL) Take by mouth. Problem List As Of Date: 05/27/2024 (None) Other instructions from your clinician: OTITIS MEDIA GENERAL INFORMATION: Otitis media is an infection of the middle ear. The middle ear sits behind the eardrum. This infection may be caused by a virus or bacteria and often follows a cold. Children often have repeat ear infections. Otitis media is not contagious. INSTRUCTIONS: 1. An antibiotic has been prescribed. It should be taken exactly as prescribed. Do not stop the medicine even if the symptoms go away. 2. Dvkb-buk-pduyizb pain medication may be taken or other pain medication as prescribed by the doctor. 3. Nothing should be placed in the ear unless instructed by your doctor. 4. The patient may return to school/daycare or work when the temperature is normal (98.6 F or 37 C). 5. The patient should not swim while the ear is infected. CONTACT YOUR DOCTOR IF YOU OR YOUR CHILD: 1. Does not feel better within 36 hours. 2. Develops a temperature over 102E F (39E C). 3. Starts vomiting or has diarrhea. 4. Develops drainage from the affected ear. 5. Has any new problem that may be related to the medicine prescribed. RETURN TO THE ED IF: 1. You or your child has a severe headache or pain around the ear. 2. You or your child notice swelling around the ear. 3. You or your child has a seizure (convulsion), twitching of the facial muscles, or passes out. 4. You or your child is dizzy, has a stiff neck, or cannot walk or talk normally. 5. Your child becomes more irritable or listless (not interested in his or her surroundings, does not get soothed by you holding him or her). Prescriptions ordered this encounter Disp Refills Start End AMOXICILLIN 875 MG TABLET 14 t* 0 05/27/2024 06/03/2024 Route: ORAL Sig: Take 1 tablet by mouth two times a day for 7 days. Level of Service: OFFICE/OUTPATIENT ESTABLISHED LOW [facility] 20 MIN [99693] Encounter Status:Closed by SERG BROWN on 05/27/24 ALLERGIES DATE TYPE / CODE NAME / CODE REACTION SEVERITY SOURCE Miscellaneous Allergy/[id number](SNOMED CT) NO KNOWN ALLERGIES [facility] Drug Class/595610140(SNOMED CT) NO KNOWN ALLERGIES [facility] ENCOUNTERS ADMIT/DISCHARGE ACCOUNT NUMBER ADMITTING ENCOUNTER CLASS LOC ATION SOURCE 08/21/2024/ 5 [id number] Ambulatory Building:[facility] 08/05/2024/ 5 [id number] Ambulatory Building:[facility] 07/02/2024/ 5 [id number] Ambulatory [id number] lding:[facility] 05/27/2024/ 5 [id number] Ambulatory [id number] lding:[facility] PAYERS ENCOUNTER GUARANTOR PAYER SUBSCRIBER SOURCE 08/21/2024 VESTA PABON: [place], [place] [address]Zek: () Primary Insurance:[employer] licy Number: [id number] Date: VESTA PABON: [id number] [place] [address] [facility] 08/05/2024 VESTA PABON: [place], [place] [address]Wkv: () Primary Insurance:[employer] Number: [id number] Date: VESTA PINEDA PEPPER: [id number] [place] [address] [facility] 07/02/2024 [facility] MEDICAIDPolicy Number: [id number] Date:[id number] Name:Enedelia JOHNSON PEPPER: [id number] [place] [address] [facility] 05/27/2024 Primary [facility] [place]Policy Number: [id number] Date:[id number] Name:Enedelia JOHNSON PEPPER: [id number] [place] [address] [facility]
[2024-11-25 13:28] LABS: Free T3 2.3 pg/mL (2.18-3.98)
== END | disposition home or self-care (01) ==
PROVIDERS: PCP Internal Medicine; Referring Provider Advanced Practice Midwife; Visit Provider Advanced Practice Midwife
DX: O99.283 Endocrine, nutritional and metabolic diseases complicating pregnancy, third trimester (principal); O09.93 Supervision of high risk pregnancy, unspecified, third trimester; E03.9 Hypothyroidism, unspecified; R79.89 Other specified abnormal findings of blood chemistry; Z3A.00 Weeks of gestation of pregnancy not specified
CPT/HCPCS: 36415; 84439; 84443; 84481

== ENCOUNTER → 2024-12-02 | Outpatient (CLI) | payer MEDICAID, SELFPAY ==
[2024-12-02 14:44] LABS: ROM Internal Control Test YES-OK TO RESULT pt. (Internal QC); ROM Patient Test Negative (Negative)
[2024-12-02 14:45] LABS: Record Kit Lot#, ROM+ K3358
== END | disposition home or self-care (01) ==
LOC: LABSPEC 14:18
PROVIDERS: PCP Internal Medicine; Visit Provider Advanced Practice Midwife
DX: O28.8 Other abnormal findings on antenatal screening of mother (principal); O09.93 Supervision of high risk pregnancy, unspecified, third trimester; Z3A.36 36 weeks gestation of pregnancy
CPT/HCPCS: 84112; 87081; 87077; 87186

== ENCOUNTER 2024-12-04 13:16 | Inpatient (IN) | payer MEDICAID, SELFPAY ==
[2024-12-04] VITALS (29 sets, daily range): BP systolic 116–157; BP diastolic 65–96; PULSE 74–116; RESP 16–17; TEMP 36.4–37; O2SAT 97–100; BMI 28.5
[2024-12-04] MEDS: Lactated Ringers 1,000 ML 200 ML IV ×2 (14:40→23:46)
[2024-12-04 14:47] LABS: Hematocrit 34.7 % (37-47); Hemoglobin 11.7 g/dL (12.0-15.0); Immature Granulocytes Count 0.070 X10^3/uL (0.0-0.0); Mean Corp Hgb Conc 33.7 g/dL (32-36); Mean Corpuscular Volume 90.6 fL (81-99); Mean Platelet Vol. 11.4 fl (6.2-12.0); NRBC Flagged by Analyzer 0 % (0-5); Platelet Count 171 K/mm3 (150-450); RBC Distribution Width CV 14.0 % (11.6-14.6); RBC Distribution Width SD 46.0 fl (35.1-43.9); Red Blood Count 3.83 M/mm3 (4.2-5.4); White Blood Count 9.7 K/mm3 (4.4-11.0)
[2024-12-04] MEDS: Penicillin G Pot 5,000,000 UNITS in 0.9% Normal Saline (100mL MB+) 100 ML 150 UNITS IV (14:49)
[2024-12-04 15:01] LABS: Creatinine, Urine (random) 29.90 mg/dL (28.00-217.00); Protein, Urine (Random) 14.6 mg/dL (0.0-12.0); Protein:Creat Ratio 488 mg/g CRE (0-200)
[2024-12-04 15:02] LABS: AST(SGOT) 20 U/L (<=31); Alanine Aminotransfer ALT/SGPT 9 U/L (<=34); Albumin, Serum 4.2 g/dL (3.5-5.0); Alkaline Phosphatase 103 U/L (35-104); Anion Gap 15 (5-15); BUN 4 mg/dL (4-19); BUN/Creat Ratio 7.2 RATIO (10-20); Calcium,Total 9.3 mg/dL (7.6-11.0); Carbon Dioxide 21.2 mmol/L (21.0-32.0); Chloride 104 mmol/L (98-108); Estimated Creatinine Clearance 154.23 ml/min (50-250); Globulin 3.2 g/dL (2.2-4.2); Glucose 78 mg/dL (70-99); Potassium 3.0 mmol/L (3.3-5.1)
[2024-12-04 15:13] LABS: Alanine Aminotransfer ALT/SGPT 10 U/L (<=34); Estimated Creatinine Clearance 156.98 ml/min (50-250); Syphilis Antibodies Nonreactive (Nonreactive)
[2024-12-04] MEDS: 0.9% Normal Saline Single 100 ML IV.SOLN. INTRA-UTER (15:32)
[2024-12-04 15:52] LABS: AST(SGOT) 20 U/L (<=31); Uric Acid 4.7 mg/dL (2.6-6.0)
[2024-12-04] MEDS: Oxytocin 15 Units/NS 250ml 15 UNITS/250 ML IV.SOLN 2 UNITS IV (16:39)
[2024-12-04] MEDS: Penicillin G 3,000,000 Units 50 ML 100 UNITS IV ×2 (18:12→23:39)
[2024-12-04] MEDS: Lactated Ringers 1,000 ML 999 ML IV (19:45)
[2024-12-04] MEDS: fentaNYL-bupivacaine (epidural) 100 ML BAG EPIDURAL (21:13)
--- NOTE | 2024-12-04 23:57 | HP.PCM.OB_ITS ---
HPI - General General Date of Admission: 12/04/24 HPI Narrative ELIZABETH HERNANDEZ, is a 29 F who presents for IOL secondary to oligo. no vb lof admits good fm no regular ctx Maternal Data Information CODY Calculator Estimated Delivery Date Method Current WG Current Estimate 12/29/24 LMP (Certain) 36w 3d Other Estimates 12/26/24 Ultrasound #1 36w 6d PFSH PFSH Medical History Missed Kidney stone Alcohol use Low iron Migraine headache Blackout History of echocardiogram (spontaneous vaginal delivery) Home Medications ?Medication ?Instructions ?Recorded ?Last Taken ?Type levothyroxine 88 mcg tablet 88 mcg PO QDAY thyroid #60 tabs 07/26/24 12/04/24 Rx [id number] 120 mcg-dha 25 2 tab PO DAILY pregn dionne 08/09/24 12/03/24 History mg-herb no.293 66.7 mg chew tablet (Alive Premium ) valacyclovir 1 gram tablet 1,000 mg PO BID PRN at onse t of 08/09/24 Unknown History (Valtrex) cold sore Allergy/AdvReac Type Severity Reaction Status Date / Time No Known Allergies Allergy Verified 12/04/24 15:54 Family History Father Cancer, Onset Age: 57 Prostate ca Hypertension Grandfather Cancer, Onset Age: 70 Maternal Prostate Cancer Grandmother COPD (chronic obstructive pulmonary disease) Maternal Mother Hypertension Sister Fatty liver due to alcoholism Unknown Thyroid disorder Aunt Thyroid disorder Surgical History H/O dilation and curettage History of cystoscopy S/P foot surgery, right History of laparoscopic appendectomy (~07/19/19) Social History adopted: No household members: significant other and children housing: house number of children: 4 current occupational status: unemployed current occupation: [employer] pets and animals: No history of recent travel: No sexually active: Yes Smoking Status: Never smoker Electronic Cigarette Use: not used second hand exposure: No alcohol intake: former details: quit back in 2019 substance use type: does not use well-balanced diet: daily or most days caffeine: Yes Type: tea eating out: 1-3 times/week during the past year weight has: remained stable what type of physical activity do you participate in: walking frequency: 5-6 times per week duration: 30-45 minutes/day andie/protestant: None seatbelt use: always do you feel safe at home: Yes additional 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: BF Sulaiman 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 Date Name GA/Weeks Outcome Route Bth Weight Gen Labor Lgth Anesthesia Del Locatn Provider FOB 03/23/14 Melvina 40 live - full term 8#1oz Female epidural [facility] 03/03/18 [place] 39 live - full term 8#13oz Male epid ural [facility] Dr.Weeman Hilario 10/06/19 Skip 38 live - full term 6#3oz Female epid ural [facility] Pj Hilario 05/23/21 Neville 38 live - full term 8#5oz Male epidu ral [facility] Suzanne Hilario 10/16/23 D&C Visit Details Expected Delivery Route/Plan Labor Preferences- CB/BF classes: no labor support person: Sulaiman labor intervention preferences: [] pain management options preferred: epidural cut cord/dad catch: cord : yes PP control planned: [] discussed possible routes of delivery and associated risks: [] special requests: [] Plans Covid status: [] Flu vaccine: [] Tdap vaccine: given Rhogam: na LARC form signed: yes Problem list reviewed and updated with the most current plan of care details and appropriate orders placed. Relevant counseling for the gestational age provided. Continue routine care and follow up unless otherwise noted in visit notes/problem list details OB Flowsheet Initial Weight: 163 lb Date -?-?-?-?-?-?-?-?-?-?-?-?- EGA Weight BP Urine Prot -?-?-?-?-?-?-?-?-?-?-?-?- Glucose FHR FuHt Pres Dilation -?-?-?--?-?-?-?-?-?-?-?-?- Effaced St Visit Note 05/30/24 -?-?-?-?-?-?-?-?-?-?-?-?- 9w 4d 163 lb 4 oz (+4 oz) 128/81 -?-?-?-?-?-?-?-?-?-?-?-?- 181 -?-?-?-?-?-?-?-?-?-?-?-?- KW- CRL cons wit h dates. unsure if wants NIPT-will get labs next week 06/27/24 -?-?-?-?-?-?-?-?-?-?-?-?- 13w 4d 155 lb 4 oz (-7 lb 12 oz) 119/83 Negative -?-?-?-?-?-?-?-?-?-?-?-?- Negative 166 -?-?-?-?-?-?-?-?-?-?-?-?- KW- no vb/crampi ng. discussed XYY results. anatomy US ordered. KW- no vb/cramping. discusse d XYY results. anatomy US ordered. thyroid levels need drawn next visit. having weight loss but eating appropriately. 07/24/24 -?-?-?-?-?-?-?-?-?-?-?-?- 17w 3d 157 lb 6 oz (-5 lb 10 oz) 121/81 Negative -?-?-?-?-?-?-?-?-?-?-?-?- Negative 161 -?-?-?-?-?-?-?-?-?-?-?-?- JV- no complaint s today. needs thyroid labs. has anatomy scan ordered. reviewed more about XYY 08/23/24 -?-?-?-?-?-?-?-?-?-?-?-?- 21w 5d 160 lb 8 oz (-2 lb 8 oz) 127/85 Negative -?-?-?-?-?-?-?-?-?-?-?-?- Negative 155 21 -?-?-?-?-?-?-?-?-?-?-?-?- LC- thryoid stud ies ordered. anatomy views now completed- pending report. no vb/cramping. 09/17/24 -?-?-?-?-?--?-?-?-?-?-?-?- 25w 2d 163 lb 8 oz (+8 oz) 119/81 Negative -?-?-?-?-?-?-?-?-?-?-?-?- Negative 145 25 -?-?-?-?-?-?-?-?-?-?-?-?- SM- no vb lof go od fm no regular ctx 10/16/24 -?-?-?-?-?-?-?-?-?-?-?-?- 29w 3d 168 lb 8 oz (+5 lb 8 oz) 124/72 Negative -?--?-?-?-?-?-?-?-?-?-?-?- Negative 160 29 -?-?-?-?-?-?-?-?-?-?-?-?- -No VB, LOF. G ood FM Larc, tdap. 28 wk labs pending 10/31/24 -?-?-?-?-?-?-?-?-?-?-?-?- 31w 4d 170 lb (+7 lb) 130/78 Negative -?-?-?-?-?-?-?-?-?-?-?-?- Negative 155 31 -?-?-?-?-?-?-?-?-?-?-?-?- SM- no vb lof go od fm no reuglar ctx 11/12/24 -?-?-?-?-?-?-?-?-?-?-?-?- 33w 2d 172 lb (+9 lb) 136/88 Negative -?-?-?-?-?-?-?-?-?-?-?-?- Negative 140 33 -?-?-?-?-?-?-?-?-?-?-?-?- KW- no vb/lof/ct x. good fm. thyroid labs at next appt. Growth us and NSTs at 36 weeks. 09/29/25 -?-?-?-?-?-?-?-?-?-?--?-?- 35w 1d 174 lb 6 oz (+11 lb 6 oz) 123/83 Negative -?-?-?-?-?-?-?-?-?-?-?-?- Negative 142 35 -?-?-?-?-?-?-?-?-?-?-?-?- MH-No VB, LOF. G ood FM. Thyroid labs today as did not do last visit. 12/02/24 -?-?-?-?-?-?-?-?-?-?-?-?- 36w 1d 175 lb 2 oz (+12 lb 2 oz) 124/84 Negative -?-?-?-?-?-?-?-?-?-?-?-?- Negative 140 36 34 2.5 -?-?-?-?-?-?-?-?-?-?-?-?- 40 -3 KW- no vb/ lof/ctx. good fm. has 36 week growth US scheduled. GBS today. NST FHR Rate Baby A Baseline: 130 Variability:: Moderate Accelerations:: 15 x 15 Decelerations:: None NST Reactive:: Yes FHR Category:: Category I Uterine Activity:: irregular ROS Constitutional Constitutional: Reports systems reviewed and no addt'l complaints, except as documented Eyes Eyes: Denies change in vision ENT HEENT: Reports systems reviewed and no addt'l complaints, except as documented; Denies headache(s) Cardiovascular Cardiovascular: Reports systems reviewed and no addt'l complaints, except as documented; Denies chest pain or dyspnea Respiratory/Chest Respiratory/Chest: Reports systems reviewed and no addt'l complaints, except as documented Gastrointestinal Gastrointestinal: Reports systems reviewed and no addt'l complaints, except as documented; Denies abdominal pain Genitourinary Genitourinary: Reports systems reviewed and no addt'l complaints, except as documented, contractions Details: present (irregular) and movement Details: present; Denies dysuria or genital lesions Musculoskeletal Musculoskeletal: Reports systems reviewed and no addt'l complaints, except as documented Neurologic Neurologic: Reports systems reviewed and no addt'l complaints, except as documented Endocrine Endocrinology: Reports systems reviewed and no addt'l complaints, except as documented Vital Signs Vital Signs Vital Signs: 12/04/24 13:41 12/04/24 13:41 12/04/24 13:41 Temperature Temperature Source Pulse Rate 94 Respiratory Rate Blood Pressure 157/90 H BP Systolic 157 BP Diastolic 90 Pulse Ox 100 12/04/24 13:58 12/04/24 13:58 12/04/24 13:58 Temperature Temperature Source Oral Pulse Rate 90 Respiratory Rate Blood Pressure 128/89 H BP Systolic 128 BP Diastolic 89 Pulse Ox 12/04/24 13:58 12/04/24 13:58 12/04/24 13:58 Temperature 98.4 F Temperature Source Pulse Rate Respiratory Rate 16 Blood Pressure BP Systolic BP Diastolic Pulse Ox 98 12/04/24 15:56 12/04/24 15:56 12/04/24 15:56 Temperature Temperature Source Pulse Rate 102 H Respiratory Rate 17 Blood Pressure 132/90 H BP Systolic 132 BP Diastolic 90 Pulse Ox 12/04/24 15:56 12/04/24 17:00 12/04/24 17:00 Temperature 98.6 F Temperature Source Pulse Rate 93 Respiratory Rate Blood Pressure 133/91 H BP Systolic 133 BP Diastolic 91 Pulse Ox 12/04/24 17:00 12/04/24 18:01 12/04/24 18:01 Temperature Temperature Source Pulse Rate 93 Respiratory Rate 17 Blood Pressure 135/87 H BP Systolic 135 BP Diastolic 87 Pulse Ox 12/04/24 18:01 12/04/24 18:01 12/04/24 18:46 Temperature 98.1 F Temperature Source Pulse Rate Respiratory Rate 17 Blood Pressure 138/88 H BP Systolic 138 BP Diastolic 88 Pulse Ox 12/04/24 18:46 12/04/24 18:46 12/04/24 18:46 Temperature 98.1 F Temperature Source Pulse Rate 89 Respiratory Rate 17 Blood Pressure BP Systolic BP Diastolic Pulse Ox 12/04/24 19:13 12/04/24 19:13 12/04/24 19:13 Temperature Temperature Source Oral Pulse Rate 89 Respiratory Rate 16 Blood Pressure BP Systolic BP Diastolic Pulse Ox 12/04/24 19:13 12/04/24 19:13 12/04/24 19:14 Temperature 98.0 F Temperature Source Pulse Rate Respiratory Rate Blood Pressure 136/82 H BP Systolic 136 BP Diastolic 82 Pulse Ox 99 12/04/24 19:14 12/04/24 20:16 12/04/24 20:16 Temperature Temperature Source Pulse Rate 86 93 Respiratory Rate Blood Pressure 141/79 H BP Systolic 141 BP Diastolic 79 Pulse Ox 12/04/24 20:52 12/04/24 20:52 12/04/24 20:52 Temperature Temperature Source Pulse Rate 101 H Respiratory Rate Blood Pressure 137/93 H BP Systolic 137 BP Diastolic 93 Pulse Ox 100 12/04/24 20:57 12/04/24 20:57 12/04/24 20:57 Temperature Temperature Source Pulse Rate 108 H Respiratory Rate Blood Pressure 139/89 H BP Systolic 139 BP Diastolic 89 Pulse Ox 99 12/04/24 20:57 12/04/24 21:02 12/04/24 21:02 Temperature Temperature Source Pulse Rate 116 H Respiratory Rate 16 Blood Pressure 150/96 H BP Systolic 150 BP Diastolic 96 Pulse Ox 12/04/24 21:02 12/04/24 21:07 12/04/24 21:07 Temperature Temperature Source Pulse Rate 101 H Respiratory Rate Blood Pressure 144/83 H BP Systolic 144 BP Diastolic 83 Pulse Ox 99 12/04/24 21:07 12/04/24 21:12 12/04/24 21:12 Temperature Temperature Source Pulse Rate 85 Respiratory Rate Blood Pressure BP Systolic BP Diastolic Pulse Ox 98 98 12/04/24 21:13 12/04/24 21:13 12/04/24 21:16 Temperature Temperature Source Pulse Rate 85 Respiratory Rate 16 Blood Pressure 140/80 H BP Systolic 140 BP Diastolic 80 Pulse Ox 12/04/24 21:17 12/04/24 21:17 12/04/24 21:17 Temperature Temperature Source Pulse Rate 84 Respiratory Rate Blood Pressure 131/87 H BP Systolic 131 BP Diastolic 87 Pulse Ox 97 12/04/24 21:20 12/04/24 21:20 12/04/24 21:22 Temperature 98.2 F Temperature Source Oral Pulse Rate Respiratory Rate Blood Pressure 121/72 H BP Systolic 121 BP Diastolic 72 Pulse Ox 12/04/24 21:22 12/04/24 21:22 12/04/24 21:22 Temperature Temperature Source Pulse Rate 88 Respiratory Rate 16 Blood Pressure BP Systolic BP Diastolic Pulse Ox 97 12/04/24 21:27 12/04/24 21:27 12/04/24 21:27 Temperature Temperature Source Pulse Rate 76 Respiratory Rate Blood Pressure 126/72 H BP Systolic 126 BP Diastolic 72 Pulse Ox 98 12/04/24 21:27 12/04/24 21:29 12/04/24 21:29 Temperature Temperature Source Pulse Rate 81 Respiratory Rate 16 Blood Pressure 124/69 H BP Systolic 124 BP Diastolic 69 Pulse Ox 12/04/24 21:32 12/04/24 21:32 12/04/24 21:33 Temperature Temperature Source Pulse Rate 76 Respiratory Rate Blood Pressure 126/75 H BP Systolic 126 BP Diastolic 75 Pulse Ox 98 12/04/24 21:33 12/04/24 21:37 12/04/24 21:37 Temperature Temperature Source Pulse Rate 74 81 Respiratory Rate Blood Pressure BP Systolic BP Diastolic Pulse Ox 97 12/04/24 21:37 12/04/24 21:38 12/04/24 21:38 Temperature Temperature Source Pulse Rate 78 Respiratory Rate 16 Blood Pressure 124/67 H BP Systolic 124 BP Diastolic 67 Pulse Ox 12/04/24 21:42 12/04/24 21:42 12/04/24 21:43 Temperature Temperature Source Pulse Rate 86 Respiratory Rate Blood Pressure 116/65 BP Systolic 116 BP Diastolic 65 Pulse Ox 99 12/04/24 21:43 12/04/24 21:47 12/04/24 21:47 Temperature Temperature Source Pulse Rate 82 83 Respiratory Rate Blood Pressure 125/66 H BP Systolic 125 BP Diastolic 66 Pulse Ox 12/04/24 21:47 12/04/24 23:42 12/04/24 23:42 Temperature Temperature Source Pulse Rate 92 Respiratory Rate Blood Pressure 139/82 H BP Systolic 139 BP Diastolic 82 Pulse Ox 98 12/04/24 23:42 12/04/24 23:42 12/04/24 23:42 Temperature 97.6 F L Temperature Source Oral Pulse Rate Respiratory Rate 16 Blood Pressure BP Systolic BP Diastolic Pulse Ox Weight Weight: 177 lb Body Mass Index (BMI) 28.5 Physical Exam Const alert, oriented x3, no apparent distress and healthy appearing HEENT normocephalic and moist oral mucous membranes Head and Scalp: atraumatic Neck full ROM, no lymphadenopathy, supple and thyroid normal General: trachea midline Lymph Lymphatic: no lymphadenopathy noted Chest inspection of chest normal Resp normal respiratory effort Cardio regular rate GI soft to palpation and non-tender GI Narrative: gravid Inspection: gravid external exam normal Manual OB Exam: estimated gestational size appropriate, presentation cephalic, dilated, effaced and station Extremity normal to inspection General Extremity: Negative for edema Skin no rashes or lesions noted Neuro no focal motor deficits and deep tendon reflexes 2+ bilaterally Motor Exam: strength 5/5 throughout and clonus absent Psych mental status grossly normal Labs Labs Labs: Blood Type O POSITIVE Antibody Screen NEGATIVE Hct, (37-47) 34.7 % L Hgb, (12.0-15.0) 11.7 g/dL L Obstetrics Ultrasound Syphilis Total Ab, (Nonreactive) Nonreactive Rubella IgG Antibody, (Nonreactive) REAC Hep Bs Antigen, (Nonreactive) Nonreactive Hepatitis C Antibody, (Nonreactive) Nonreactive Hepatitis C Ab (EIA), (0.0-0.9) <0.1 s/co ratio Chlamydia DNA (DILCIA), (Negative) Negative N.gonorrhoeae DNA (DILCIA), (Negative) Negative HIV 1&2 Antibody, (Nonreactive) Nonreactive Glucose 1 Hr 50 gm, (70-140) 78 mg/dL Rhogam given: No Miscellaneous Test Assessment & Plan (1) Abnormal genetic test during : COMMENT: NIPT XYY, discussed genetic counseling and offered MFM referral, had anatomy scan and WNL. declined genetic counseling visit. ANC worksheet sent, need to ask peds when genetic testing is done after . ordered growth US 32 and 26 weeks, and plan weekly NSTs from 36 weeks on (2) Missed with demise before 20 completed weeks of gestation: COMMENT: H/O D&C 09/2023 with SM (3) Hypothyroid: QUALIFIERS: Hypothyroidism type: acquired Qualified Code(s): E03.9 - Hypothyroidism, unspecified COMMENT: Levothyroxine 112mcg 88mcg-repeat labs 08/23 (4) Supervision of high-risk : QUALIFIERS: Trimester: third trimester Qualified Code(s): O09.93 - Supervision of high risk , unspecified, third trimester COMMENT: PRR , CODY 12/29 boy PC: Christian Hein Kynzie, Dawson BF: Sulaiman (5) : QUALIFIERS: Weeks of gestation: 36 weeks Qualified Code(s): Z3A.36 - 36 weeks gestation of COMMENT: NIPT w gender & carrier- undecided (6) Abnormal TSH: COMMENT: need free T4 now. If normal, repeat TSH and Free T4 in 3 months (7) Oligohydramnios in third trimester: PLAN: Plan Patient presents IOL, plan management for with pit fb. Pain management: plans epidural. GBS pos pcn. Management of any complications: oligo I have reviewed the [facility] and made any clinically relevant updates.
--- NOTE | 2024-12-04 23:59 | PCM.PN.BLA ---
Progress Note arom clear fluid 4-5 cm cat I tracing
[2024-12-05] VITALS (31 sets, daily range): BP systolic 110–142; BP diastolic 63–99; PULSE 74–105; RESP 16; TEMP 36.4–37.1; O2SAT 93–100
[2024-12-05] MEDS: fentaNYL-bupivacaine (epidural) 100 ML BAG EPIDURAL (01:43)
[2024-12-05] MEDS: Penicillin G 3,000,000 Units 50 ML 100 UNITS IV (03:50)
[2024-12-05] MEDS: Oxytocin 15 Units/NS 250ml 15 UNITS/250 ML IV.SOLN 83 UNITS IV (05:30)
--- NOTE | 2024-12-05 05:34 | EX.PCM.OBVAG ---
Assessment & Plan (1) Oligohydramnios in third trimester: (2) Abnormal genetic test during : COMMENT: NIPT XYY, discussed genetic counseling and offered MFM referral, had anatomy scan and WNL. declined genetic counseling visit. ANC worksheet sent, need to ask peds when genetic testing is done after . ordered growth US 32 and 26 weeks, and plan weekly NSTs from 36 weeks on (3) Missed with demise before 20 completed weeks of gestation: COMMENT: H/O D&C 09/2023 with SM (4) Hypothyroid: QUALIFIERS: Hypothyroidism type: acquired Qualified Code(s): E03.9 - Hypothyroidism, unspecified COMMENT: Levothyroxine 112mcg 88mcg-repeat labs 08/23 (5) Supervision of high-risk : QUALIFIERS: Trimester: third trimester Qualified Code(s): O09.93 - Supervision of high risk , unspecified, third trimester COMMENT: PRR , CODY 12/29 boy PC: Christian Hein Kynzie, Dawson BF: Sulaiman (6) : QUALIFIERS: Weeks of gestation: 36 weeks Qualified Code(s): Z3A.36 - 36 weeks gestation of COMMENT: NIPT w gender & carrier- undecided (7) Abnormal TSH: COMMENT: need free T4 now. If normal, repeat TSH and Free T4 in 3 months Maternal Data Information CODY Calculator Estimated Delivery Date Method Current WG Current Estimate 12/29/24 LMP (Certain) 36w 4d Other Estimates 12/26/24 Ultrasound #1 37w 0d Vaginal Delivery Maternal Presentation Maternal Presentation: see assessment and plan Vaginal Delivery Information Procedure Performed: Spontaneous Vaginal Delivery Surgeon/Practitioner: Vera Love Date of Procedure: 12/05/24 Pre-Procedure Diagnosis: oligo Type of anesthesia: Epidural Estimated Blood Loss: 100 Findings Description of procedure: Patient began pushing and delivered the head in the VAUGHN presentation. The head was delivered atraumatically and a loose nuchal cord ?1 was identified and easily reduced over the infant's head. The anterior and posterior shoulders delivered without complication followed by the rest of the infant and the was placed on the maternal abdomen. Delayed cord clamping was employed for approximately 60 seconds. Cord was clamped and cut and gentle traction was applied to the cord and the placenta delivered spontaneously immediately following it was noted to be intact with three-vessel cord. The perineum and vagina were inspected and was noted to have no laceration. EBL was 100 cc. Patient and infant tolerated delivery well. 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
--- NOTE | 2024-12-05 05:37 | DCINST_ITS ---
Discharge Instructions DC O2, CPAP, BIPAP needs Home O2 Discharge instructions: No Dressing / Incision Discharge Activity: Return to Normal Activity, May Not Drive (while taking narcotic pain medications.) and May Shower May resume sexual activity in: 4-6 weeks Dressing / Incision Call your doctor if your incision/area has: Continuous Slow Oozing, Sudden Increased Bleeding, Increased Pain/ Swelling, Increased Redness and Foul Smelling Discharge Follow Up Care Please Follow Up With: Vera oLve MD When: Call [phone] to make an appointment with your doctor in 6 weeks. If you had elevated blood pressure or 4th degree laceration, you will need to be seen in 2 weeks. Test Results: Test results from this visit will be discussed in further detail at your follow- up appointment, if applicable. Discharge Plan Admission Admit Date/Time: 12/04/24 13:16 Attending Provider: Vera Love Primary Care Provider: Kathy Nunn Discharge Orders/Prescriptions Prescriptions: No Action Alive Premium 120 mcg-25 mg- 66.7 mg tablet,chewable 2 tab PO DAILY valacyclovir [Valtrex] 1 gram tablet 1,000 mg PO BID PRN (Reason: at onset of cold sore) levothyroxine 88 mcg tablet 88 mcg PO QDAY Qty: 60 1RF Referrals / Follow Up: Kathy Nunn MD [Primary Care Provider, Internal Medicine]
[2024-12-06 00:30] VITALS: BP 114/68; PULSE 80; RESP 16; TEMP 36.3; O2SAT 99
[2024-12-06 04:45] VITALS: BP 120/87; PULSE 77; RESP 16; TEMP 36.2; O2SAT 97
[2024-12-06 07:53] VITALS: BP 126/93; PULSE 90; RESP 16; TEMP 36.3; O2SAT 100
--- NOTE | 2024-12-06 07:53 | PN.OBGYN_ITS ---
Subjective Subjective Patient doing well without complaints. Tolerating PO. Ambulating and voiding without difficulty. Feeding well. Denies chest pain, shortness of breath, calf pain/swelling, fevers, chills, lightheadedness. Objective Data Objective Data Vital Signs: Vital Signs Temp Pulse Resp BP Pulse Ox O2 Del Method 97.2 F L 77 16 120/87 H 97 Room Air 12/06/24 04:45 12/06/24 04:45 12/06/24 04:45 12/06/24 04:45 12/06/24 04:45 12/06/24 04:45 Oxygen Delivery Method Room Air Weight: 177 lb Body Mass Index (BMI) 28.5 Intake & Output: Intake and Output for Last 24 Hours 12/04/24 12/05/24 12/06/24 23:59 23:59 23:59 Intake Total 2085.53 / 2085.53 1398.30 / 1398.30 Output Total 600 / 600 Balance 2085.53 / 2085.53 798.30 / 798.30 Lab / Micro Data 12/04/24 14:10 12/04/24 14:10 ROS Constitutional Constitutional: Reports systems reviewed and no addt'l complaints, except as documented; Denies anorexia or headache(s) Cardiovascular Cardiovascular: Reports systems reviewed and no addt'l complaints, except as documented; Denies dizziness, dyspnea, nausea or tachypnea Respiratory/Chest Respiratory/Chest: Reports systems reviewed and no addt'l complaints, except as documented; Denies cough, dyspnea, shortness of breath at rest or tachypnea Gastrointestinal Gastrointestinal: Reports systems reviewed and no addt'l complaints, except as documented; Denies abdominal pain, constipation or nausea Genitourinary Genitourinary: Reports systems reviewed and no addt'l complaints, except as documented; Denies burning urination, difficulty urinating, dysuria, urinary frequency or urinary incontinence Musculoskeletal Musculoskeletal: Reports systems reviewed and no addt'l complaints, except as documented Integumentary Integumentary: Reports systems reviewed and no addt'l complaints, except as documented Neurologic Neurologic: Reports systems reviewed and no addt'l complaints, except as documented; Denies abnormal speech, dizziness or headache(s) Psychiatric Psychiatric: Reports systems reviewed and no addt'l complaints, except as documented Endocrine Endocrinology: Reports systems reviewed and no addt'l complaints, except as documented Hematologic/Lymphatic Hematologic/Lymphatic: Reports systems reviewed and no addt'l complaints, except as documented Physical Exam Const alert, oriented x3 and no apparent distress Neck full ROM Resp normal respiratory effort, normal air movement and no retractions Effort and Inspection: able to speak in complete sentences and symmetric chest movement GI soft to palpation Bladder / Kidney Exam: bladder normal to palpation Uterus Palpation: uterus fundus firm Extremity normal to inspection and full ROM Psych mental status grossly normal, thought process normal and cooperative Assessment & Plan (1) Positive GBS test: COMMENT: treat in labor (2) Oligohydramnios in third trimester: (3) Abnormal genetic test during : COMMENT: NIPT XYY, discussed genetic counseling and offered MFM referral, had anatomy scan and WNL. declined genetic counseling visit. ANC worksheet sent, need to ask peds when genetic testing is done after . ordered growth US 32 and 26 weeks, and plan weekly NSTs from 36 weeks on (4) Missed with demise before 20 completed weeks of gestation: COMMENT: H/O D&C 09/2023 with (5) Hypothyroid: QUALIFIERS: Hypothyroidism type: acquired Qualified Code(s): E 03.9 - Hypothyroidism, unspecified COMMENT: Levothyroxine 112mcg 88mcg-repeat labs 08/23 (6) Supervision of high-risk : QUALIFIERS: Trimester: third trimester Qualified Code(s): O09.93 - Supervision of high risk , unspecified, third trimester COMMENT: PRR , CODY 11/ boy PC: Christian Hein Kynzie, Dawson BF: Sulaiman (7) : QUALIFIERS: Weeks of gestation: 36 weeks Qualified Code(s): Z 3A.36 - 36 weeks gestation of COMMENT: GBS pos, NIPT w gender & carrier- undecided (8) Abnormal TSH: COMMENT: need free T4 now. If normal, repeat TSH and Free T4 in 3 months (9) Vaginal delivery: PLAN: s/p PPD # 1 1. routine post delivery care 2. breast feeding- support given 3. rh positive 4. rubella immune Charges/Coding Multi Select Codes Urinary/Genital Urinary/Genital CPT Codes: No Charge
--- NOTE | 2024-12-06 12:41 | CASEMGMT ---
Social Work Assessment Labor and Delivery Unit [facility] [address] [place] [address] Phone number: [phone] Date of Referral: 12/05/24 Time of Referral:? 911 Referred By: Dr. Munoz Date of Intervention: ??12/06/24 Time of Intervention:? 1100 Reason for Referral:? mental health and baby in special care nursery Sw completed chart review and acknowledges social work consult. Sw presented to bedside and introduced self to mother of baby (MOB) Vesta and explained reason for sw involvement. Sw met with MOB and father of baby (FOB), Sulaiman, briefly after baby got admitted to Special Care Nursery. At that time SCN staff were having difficult time getting IV started on baby and MOB and FOB were present and watching. MOB and FOB observing this and appeared to be anxious. Sw presented and introduced self and provided support. This was noted to calm parents as they talked to sw and appeared to be more calm. History obtained from: medical records, MOB Household composition: Currently residing in the family home is MOB, FOKamilah, and their children. MOB has a 10 year old from a former relationship: Elo. And FOB has a 10 year old from a former relationship: Iman. Together parents have 3 children: Christian (6), Skip (5) and Jamin (3). baby to be included in residence when ready for discharge. SEKOU denies any issues or concerns with housing, stating that it is safe and secure. Patient's parent/guardian status:? SEKOU states that she and FOB have been together for 8 years after meeting each other on Facebook. baby is parents fourth baby together. No concerns reported of domestic violence or intimate partner violence. ? Medical History: ?SEKOU is 29 year old female who is 6, para 4- now 5 following labor and delivery of . SEKOU received routine care during with [facility]. SEKOU presented to hospital and required induction of labor due to low fluid at 36 weeks gestation. SEKOU delivered baby via vaginal delivery on 12/05/24. Baby boy does not have a name at this time, he was born weighing 6lb 15oz and had apgars of 8 and 9 at one and five minutes of life, respectfully. Baby required transfer to Special Care Unit due to prematurity of 36 weeks and NIPT abnormal for XYY chromosomes. No discharge identified at this time. SEKOU is providing breast milk for baby and working on establishing breast feeding. Baby will be followed by Dr. Haas for pediatric follow up. Educational Status:? Both parents graduated from high school, and ELIOT attended some college but did not obtain a college degree. No problems with reading, learning or comprehension. 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 SEKOU is unemployed any stays home to care for the children. Infant Supplies:?? All necessary baby supplies obtained, including: car seat, safe sleep space, clothes, diapers and wipes Childcare/Caregiver(s):? SEKOU will be the primary caregiver to baby along with ELIOT when he is not working. Transportation:??Both parents have their drivers license and reliable means of transportation, no barriers. Programs/Agencies Involved: ?SEKOU is connected to insurance through Medicaid ([employer]). She does not have food benefits or WIC. ?? Children Services/Legal Issues:??SEKOU denies prior children services involvement, there are no issues or concerns warranting referral to be made at this time. ? Behavioral Health Issues: ??Mental Health History: MOB states that ELIOT does not have any mental health diagnoses. SEKOU states that she has experienced anxiety during this due to having a miscarriage last September. MOB states that once she reached a certain point in her she felt like she could finally breathe. MOB states that now that baby is here she feels like it is more real and she is happy that he is healthy. MOB denies feeling down, sad or anxious at this time. ??? Substance Use History: MOB denies substance use prior to and during . ?? Family History:?MOB denies family history of substance use or significant mental health diagnoses. ?? Drug Screens: No drug screens observed while completing chart review. ? Family/Social Stressors:? MOB denies any issues, stressors or concerns. Liz asked SEKOU how she is doing due to baby requiring admission to [facility]. MOB states that she is doing well now that the dust has settled. SEKOU admits that yesterday was a lot to handle, and she feels much better today. Support Systems: MOB states that ELIOT, her mom and her sister are her biggest supports. Depression/Shaken Baby/Safe Sleeping:? Sw educated MOB on signs an symptoms of baby blues and depression and anxiety. MOB states that she has heard those terms and feels familiar with what symptoms to be mindful of. MOB denies ever experiencing symptoms of those issues in the past. MOB states that if she were to struggle FOB would be able to recognize that and would know how to help and support her. Sw explained to MOB that she is more at risk for experiencing mood symptoms due to having a history of anxiety and due to baby requiring admission to [facility]. MOB expressed understanding. Sw educated MOB on shaken baby prevention and ABCs of safe sleep, MOB expressed understanding. ASSESSMENT:? MOB and baby admitted following labor and delivery. MOB required induction of labor due to low fluid. Baby required transfer of care to Special Care Nursery due to prematurity and NIPT abnormal for XYY chromosomes. MOB and FOB have both been at bedside and active in care. MOB and FOB both receptive to sw involvement and support. MOB with mental health history of anxiety, denies requiring pharmacological assistance to help manage symptoms and is not connected to any community mental health resources. MOB has a lot of natural supports in place and has obtained all necessary baby items. PLAN:? No other services requested or indicated. MOB and baby to be discharged when medically ready. Parents were provided literature regarding: signs and symptoms of baby blues and mood and anxiety disorders, Help Me Grow, shaken baby prevention, ABCs of safe sleep and a list of county resources that are available for them should any needs present themselves. Caridad Sow, [employer], BATCH M[employer]ER
[2024-12-06 15:45] VITALS: BP 134/95; PULSE 67; RESP 16; TEMP 36.4; O2SAT 99
[2024-12-06 19:49] VITALS: BP 126/87; PULSE 82; RESP 17; TEMP 36.4; O2SAT 99
[2024-12-07 01:30] VITALS: BP 123/87; PULSE 76; RESP 16; TEMP 36.6; O2SAT 98
--- NOTE | 2024-12-07 07:04 | PN.OBGYN_ITS ---
Subjective Subjective Patient doing well without complaints. Tolerating PO. Ambulating and voiding without difficulty. Feeding well. Denies chest pain, shortness of breath, calf pain/swelling, fevers, chills, lightheadedness. Objective Data Objective Data Vital Signs: Vital Signs Temp Pulse Resp BP Pulse Ox O2 Del Method 97.8 F 76 16 123/87 H 98 Room Air 12/07/24 01:30 12/07/24 01:30 12/07/24 01:30 12/07/24 01:30 12/07/24 01:30 12/07/24 01:30 Oxygen Delivery Method Room Air Weight: 177 lb Body Mass Index (BMI) 28.5 Intake & Output: Intake and Output for Last 24 Hours 12/05/24 12/06/24 12/07/24 23:59 23:59 23:59 Intake Total 1398.30 / 1398.30 Output Total 600 / 600 Balance 798.30 / 798.30 Lab / Micro Data 12/04/24 14:10 12/04/24 14:10 ROS Constitutional Constitutional: Reports systems reviewed and no addt'l complaints, except as documented; Denies anorexia or headache(s) Cardiovascular Cardiovascular: Reports systems reviewed and no addt'l complaints, except as documented; Denies dizziness, dyspnea, nausea or tachypnea Respiratory/Chest Respiratory/Chest: Reports systems reviewed and no addt'l complaints, except as documented; Denies cough, dyspnea, shortness of breath at rest or tachypnea Gastrointestinal Gastrointestinal: Reports systems reviewed and no addt'l complaints, except as documented; Denies abdominal pain, constipation or nausea Genitourinary Genitourinary: Reports systems reviewed and no addt'l complaints, except as documented; Denies burning urination, difficulty urinating, dysuria, urinary frequency or urinary incontinence Musculoskeletal Musculoskeletal: Reports systems reviewed and no addt'l complaints, except as documented Integumentary Integumentary: Reports systems reviewed and no addt'l complaints, except as documented Neurologic Neurologic: Reports systems reviewed and no addt'l complaints, except as documented; Denies abnormal speech, dizziness or headache(s) Psychiatric Psychiatric: Reports systems reviewed and no addt'l complaints, except as documented Endocrine Endocrinology: Reports systems reviewed and no addt'l complaints, except as documented Hematologic/Lymphatic Hematologic/Lymphatic: Reports systems reviewed and no addt'l complaints, except as documented Physical Exam Const alert, oriented x3 and no apparent distress Neck full ROM Resp normal respiratory effort, normal air movement and no retractions Effort and Inspection: able to speak in complete sentences and symmetric chest movement GI soft to palpation Bladder / Kidney Exam: bladder normal to palpation Uterus Palpation: uterus fundus firm Extremity normal to inspection and full ROM Psych mental status grossly normal, thought process normal and cooperative Assessment & Plan (1) Vaginal delivery: PLAN: s/p PPD # 2 1. routine post delivery care 2. breast feeding- support given 3. rh positive 4. rubella immune 5. Discharge home (2) Positive GBS test: COMMENT: treat in labor (3) Oligohydramnios in third trimester: (4) Abnormal genetic test during : COMMENT: NIPT XYY, discussed genetic counseling and offered MFM referral, had anatomy scan and WNL. declined genetic counseling visit. ANC worksheet sent, need to ask peds when genetic testing is done after . ordered growth US 32 and 26 weeks, and plan weekly NSTs from 36 weeks on (5) Missed with demise before 20 completed weeks of gestation: COMMENT: H/O D&C 09/2023 with SM (6) Hypothyroid: QUALIFIERS: Hypothyroidism type: acquired Qualified Code(s): E 03.9 - Hypothyroidism, unspecified COMMENT: Levothyroxine 112mcg 88mcg-repeat labs 08/23 (7) Supervision of high-risk : QUALIFIERS: Trimester: third trimester Qualified Code(s): O09.93 - Supervision of high risk , unspecified, third trimester COMMENT: PRR , CODY 12/29 boy PC: Christian Hein Kynzie, Dawson BF: Sulaiman (8) : QUALIFIERS: Weeks of gestation: 36 weeks Qualified Code(s): Z 3A.36 - 36 weeks gestation of COMMENT: GBS pos, NIPT w gender & carrier- undecided (9) Abnormal TSH: COMMENT: need free T4 now. If normal, repeat TSH and Free T4 in 3 months Charges/Coding Multi Select Codes Urinary/Genital Urinary/Genital CPT Codes: No Charge
--- NOTE | 2024-12-07 07:05 | PCM.DC.SUM ---
Providers Date of Admission: 12/04/24 Date of Discharge: 12/07/24 Primary Care Physician: Dr. Kathy Nunn MD Reason For Visit: VAGINAL DELIVERY Diagnosis Discharge Diagnosis (1) Vaginal delivery: Status: Acute Code(s): O80 - Encounter for full-term uncomplicated delivery Plan: s/p PPD # 2 1. routine post delivery care 2. breast feeding- support given 3. rh positive 4. rubella immune 5. Discharge home (2) Positive GBS test: Status: Acute Code(s): B95.1 - Streptococcus, group B, as the cause of diseases classified elsewhere (3) Oligohydramnios in third trimester: Status: Acute Code(s): O41.03X0 - Oligohydramnios, third trimester, not applicable or unspecified (4) Abnormal genetic test during : Status: Acute Code(s): O28.5 - Abnormal chromosomal and genetic finding on screening of mother (5) Missed with demise before 20 completed weeks of gestation: Status: Acute Code(s): O02.1 - Missed (6) Hypothyroid: Status: Chronic Code(s): E03.9 - Hypothyroidism, unspecified Qualifiers: Hypothyroidism type: acquired Qualified Code(s): E03.9 - Hypothyroidism, unspecified (7) Supervision of high-risk : Status: Acute Code(s): O09.90 - Supervision of high risk , unspecified, unspecified trimester Qualifiers: Trimester: third trimester Qualified Code(s): O09.93 - Supervision of high risk , unspecified, third trimester (8) : Status: Acute Code(s): Z34.90 - Encounter for supervision of normal , unspecified, unspecified trimester Qualifiers: Weeks of gestation: 36 weeks Qualified Code(s): Z3A.36 - 36 weeks gestation of (9) Abnormal TSH: Status: Acute Code(s): R79.89 - Other specified abnormal findings of blood chemistry Medications at Discharge Home Medications levothyroxine 88 mcg tablet 88 mcg PO QDAY thyroid #60 tabs 07/26/24 [id number] 120 mcg-dha 25 mg-herb no.293 66.7 mg chew tablet (Alive Premium ) 2 tab PO DAILY 08/09/24 valacyclovir 1 gram tablet (Valtrex) 1,000 mg PO BID PRN at onset of cold sore 08/09/24 Hospital Course Operations None Procedures None Summary of Care Provided Minutes Spent on Discharge: 30 Physical Exam Const alert, oriented x3 and no apparent distress Neck full ROM Resp normal respiratory effort, normal air movement and no retractions Effort and Inspection: able to speak in complete sentences and symmetric chest movement GI soft to palpation Inspection: incision intact Bladder / Kidney Exam: bladder normal to palpation Uterus Palpation: uterus fundus Extremity normal to inspection and full ROM Psych mental status grossly normal, thought process normal and cooperative Weight / BMI Weight Weight: 177 lb Body Mass Index (BMI) 28.5 ABG / Lab / Microbiology Data 12/04/24 14:10 12/04/24 14:10 D/C Instructions May shower in (days): 0 May resume sexual activity in: 4-6 weeks Weight Bearing Status: Full weight bearing Call your doctor if your incision/area has: Continuous Slow Oozing, Sudden Increased Bleeding, Increased Pain/ Swelling, Increased Redness and Foul Smelling Discharge Call your doctor if you observe: Fever of 101 or Higher and Using more than 1 pad per hour (for 2 hours) Suture Line Care: Avoid Pulling/Pushing and Avoid Pinching/Bending Cleanse incision/area with: Soap & Water and Keep Dressing Clean & Dry DC O2, CPAP, BIPAP Needs Home O2 Discharge instructions: No Please Follow Up With: Vera Love MD When: Call [phone] to make an appointment with your doctor in 6 weeks. If you had elevated blood pressure or 4th degree laceration, you will need to be seen in 2 weeks. Meaningful Use Info Meaningful Use Meaningful Use Diagnoses (Choose all that apply): None applicable Discharge Plan Admission Admit Date/Time: 12/04/24 13:16 Attending Provider: Vera Love Primary Care Provider: Kathy Nunn Discharge Orders/Prescriptions Prescriptions: No Action Alive Premium 120 mcg-25 mg- 66.7 mg tablet,chewable 2 tab PO DAILY valacyclovir [Valtrex] 1 gram tablet 1,000 mg PO BID PRN (Reason: at onset of cold sore) levothyroxine 88 mcg tablet 88 mcg PO QDAY Qty: 60 1RF Referrals / Follow Up: Kathy Nunn MD [Primary Care Provider, Internal Medicine] Disposition Disposition (needs filled in before D/C Order can be placed): Home, Self Care Charges/Coding Multi Select Codes Urinary/Genital Urinary/Genital CPT Codes: No Charge
[2024-12-07 09:45] VITALS: BP 117/89; PULSE 76; RESP 18; TEMP 36.4; O2SAT 100
== END 2024-12-07 10:30 | disposition home or self-care (01) | DRG 560 ==
PROVIDERS: Admitting Provider Obstetrics & Gynecology; PCP Internal Medicine; Referring Provider Obstetrics & Gynecology; Visit Provider Obstetrics & Gynecology
DX: O41.03X0 Oligohydramnios, third trimester, not applicable or unspecified (principal); Z37.0 Single live birth; B95.1 Streptococcus, group B, as the cause of diseases classified elsewhere; E03.9 Hypothyroidism, unspecified; Z79.890 Hormone replacement therapy; O99.284 Endocrine, nutritional and metabolic diseases complicating childbirth; Z3A.36 36 weeks gestation of pregnancy; O69.81X0 Labor and delivery complicated by cord around neck, without compression, not applicable or unspecified; O28.5 Abnormal chromosomal and genetic finding on antenatal screening of mother; O99.824 Streptococcus B carrier state complicating childbirth; N96 Recurrent pregnancy loss; O99.893 Other specified diseases and conditions complicating puerperium
CPT/HCPCS: 59025; 59050; 76815; 80053; 82565; 82570; 84112; 84156; 84450; 84460; 84550; 85025; 86780; 86850; 86900; 86901; 87081; 99221; G0378; J2405

== ENCOUNTER → 2024-12-04 | Outpatient (CLI) | payer MEDICAID, SELFPAY ==
--- NOTE | 2024-12-04 12:23 | US_ITS ---
PROCEDURE: OB LIMITED (NO BIOMETRICS) N/A REASON FOR EXAM: ES TECHNIQUE: Procedure Code: USOBL Modality: US Procedure: OB LIMITED (NO BIOMETRICS) COMPARISON: Prior study dated November 18, 2004. FINDINGS Number: 1 Position: Vertex Placental Position: Anterior and not low-lying Placental Abnormalities: No evidence of previa. ESTIMATED GESTATIONAL AGE: Baseline: 36 weeks and 3 days ESTIMATED DATE OF DELIVERY: Baseline: December 29, 2024 BIOPHYSICAL ASSESSMENT: Amniotic Fluid Volume: 2.8 cm Amniotic Fluid Index: 4.8 cm (8-24 cm normal range) Cardiac Motion: 143 beats per minute (average) Trunk and Limb Motion: Present. US/OB Limited (No Biometrics) IMPRESSION: Decreased amniotic fluid. The results were communicated to the attending physi shai. Reading Location: [id number]
== END | disposition home or self-care (01) ==
LOC: US 12:21
PROVIDERS: PCP Internal Medicine; Referring Provider Obstetrics & Gynecology; Visit Provider Obstetrics & Gynecology
DX: O41.93X0 Disorder of amniotic fluid and membranes, unspecified, third trimester, not applicable or unspecified (principal); Z3A.36 36 weeks gestation of pregnancy
CPT/HCPCS: 76815

== ENCOUNTER → 2025-01-15 | Outpatient (CLI) | payer MEDICAID, SELFPAY ==
--- OUTSIDE RECORDS SUMMARY | 2025-01-15 13:20 | XMS RPT_ITS | CCD ---
Author Organization [facility] CliniSymd Care Team Providers Care Glazing Machine Operator Name Role Phone Unavailable Unavailable Tamburro, Lucas [...] Mary Nunn MD Primary Care Provider [phone] Dr. Mary Nunn MD Referring Provider America [...] Unavailable Dr. Meliton Herr MD Attending Provider NO PRIMARY CARE, Primary Care Unavailable AMERICA DUDLEY Attending Unavailable AMERICA DUDLEY Referring Unavailable JOAQUIN AKBAR Attending Unavailable MARY NUNN Primary Care Unavailable ANITRA GARZA Referring Unavailable Arline CLINTON, Dr. Chavez Primary Care Provider [phone] Arline CLINTON, Dr. Chavez Referring Provider Donavan LAWRENCE, Devora Attending Provider [phone] Donavan LAWRENCEM, Devora Referring Provider Kate CLINTON, Dr. Gamez Attending Provider Arline CLINTON, Dr. Chavez Primary Care Provider [phone] Dr. Mary Nunn MD Referring Provider Emanuel WISE, America Attending Provider [phone] Grazyna Yost Attending Provider Arline CLINTON, Dr. Chavez Primary Care Provider [phone] Arline CLINTON, Dr. Chavez Referring Provider Emanuel WISE, America Attending Provider [phone] Dr. Vera Love MD Referring Provider Arline CLINTON, Dr. Chavez Primary Care Physician Dr. Mary Nunn MD Referring Provider Dr. Meliton Herr MD Attending Physician Donavan LAWRENCEM, Devora Attending Physician [phone] Dr. Vera Love MD Attending Physician Haley RINALDI-Grazyna Armas Attending Physician [phone] Emanuel WISE, America Attending Physician [phone] Emanuel WISE, America Referring Provider [phone] Arline CLINTON, Dr. Chavez Primary Care Physician [phone] Dr. Mary Nunn MD Referring Provider Kate CLINTON Dr. Vera Admitting Physician Dr. Vera Love MD Nurse Practitioner Vera Love Attending Unavailable Glenmoore, Mary Primary Care Unavailable Vera Love Referring Unavailable Vera Love Admitting Unavailable Vera Love Attending Unavailable Care Physician, No Primary Primary Care Unava ilable Vera Love Referring Unavailable Glenmoore, Mary Referring Unavailable Arline, Mary Attending Unavailable Glenmoore, Mary Primary Care Unavailable Arline, Mary Primary Care Unavailable America Dudley Attending Unavailable America Dudley Referring Unavailable Arline, Mary Primary Care Unavailable Arline, Mary Referring Unavailable Vera Love Attending Unavailable Glenmoore, Mary Referring Unavailable Glenmoore, Mary Primary Care Unavailable America Dudley Attending Unavailable Arline, Mary Referring Unavailable Glenmoore, Mary Primary Care Unavailable Haley LEGAL PROCESS SPECIALIST, Grazyna Attending Unavailable Glenmoore, Mary Referring Unavailable Arline, Mary Primary Care Unavailable America Dudley Attending Unavailable Devora Go Attending Unavailable Go, Devora Referring Unavailable Arline, Mary Primary Care Unavailable Arline, Mary Primary Care Unavailable Vera Love Attending Unavailable Vera Love Referring Unavailable Glenmoore, Mary Primary Care Unavailable Amelia Wong Attending Unavailabl e Vande Amelia Mendez Referring Unavailabl e Arline, Mary Primary Care Unavailable Vera oLve Attending Unavailable Vera Love Referring Unavailable Care Physician, No Primary Primary Care Unava ilable Chas Ernst Attending Unavailable Vera Love Attending Unavailable Glenmoore, Mary Referring Unavailable Glenmoore, Mary Primary Care Unavailable Devora Go Attending Unavailable Glenmoore, Mary Referring Unavailable Arline, Mary Primary Care Unavailable Arline, Mary Referring Unavailable Arline, Mary Primary Care Unavailable Meliton Herr Attending Unavailable Arline, Mary Referring Unavailable Glenmoore, Mary Primary Care Unavailable Amelia Wong Attending Unavailabl e Arline, Mary Referring Unavailable Arline, Mary Attending Unavailable Glenmoore, Mary Primary Care Unavailable Sheri Hernandes Attending Unavailable Sheri Hernandes Referring Unavailable Glenmoore, Mary Primary Care Unavailable Arline, Mary Primary Care Unavailable America Dudley Attending Unavailable America Dudley Attending Unavailable Glenmoore, Mary Primary Care Unavailable Arline, Mary Referring Unavailable Arline, Mary Primary Care Unavailable America Dudley Attending Unavailable Vera Love Consulting Unavailable Vera Love Attending Unavailable Glenmoore, Mary Primary Care Unavailable Vera Love Admitting Unavailable America Dudley Attending Unavailable Vera Love Referring Unavailable Care Physician, No Primary Primary Care Unava ilable Care Physician, No Primary Referring Unava ilable Glenmoore, Mary Attending Unavailable Glenmoore, Mary Referring Unavailable Glenmoore, Mary Primary Care Unavailable America Dudley Attending Unavailable [place]moore, Mary Primary Care Unavailable America Dudley Attending Unavailable Arline, Mary Referring Unavailable Arline, Mary Primary Care Unavailable Grazyna De Leon NP Attending Unavailable Arline, Mary Primary Care Unavailable Vera Love Attending Unavailable Vera Love Referring Unavailable Medications Current Medications Medication Drug Class(es) Dates [...] mg oral tablet (20 sources) l-Thyroxine Start: 07-26-2024 take 1 tablet by mouth once daily Start: 07-26-2024 End: 07-26-2024 take 1 tablet [...] Start: 05-12-2024 take 1 tablet by nupur once daily levothyroxine (SYNTHROID) 112 mcg tablet Take 1 tablet by mouth once daily. 05/12/2024 Active Start: 04-15-2024 End: 06-14-2024 take 1 capsule by mouth once daily Levothyroxine 112 mcg capsule Discontinued 112 ug PO daily 30 June 03, 2024 10:55am June 14, 2024 1:20pm Mv-Mn No.24-Utqne-Nhm-Herb 2 93 (Alive Premium ) 120 mcg-25 mg- 66.7 mg tablet,chewable (20 sources) Start: 08-09-2024 take 1 tablet by nupur once daily Start: 08-09-2024 take 1 tablet by nupur once daily Start: 08-09-2024 take 1 tablet by [facility] once daily Mv-Mn No.35-Ergeo-Ecx-Herb 293 (Alive Premium ) 120 mcg-25 mg- 66.7 mg tablet,chewable Active 2 {tbl} PO DAILY August 09, 2024 2:12pm Start: 05-30-2024 End: 08-09-2024 Mv-Mn No.05-Sjwob-Mrj-Herb 2 93 (Alive Premium ) 120 mcg-25 mg- 66.7 mg tablet,chewable Discontinued {tbl} PO May 30, 2024 12:00am August 09, 2024 2:13pm Start: 05-30-2024 Mv-Mn No.45-Fo nqt-Lyl-Gypm 293 (Alive Premium ) 120 mcg-25 mg- 66.7 mg tablet,chewable Active {tbl} PO May 30, 2024 12:00am KSG590-ohgx-WM-j0-owv-mjc-np sh ( MULTI-DHA,WITH VIT K,) 27 mg iron-800 mcg-260 mg (5 sources) Start: 05-21-2018 OIE004-zuhz-LJ-r0-lte-opn-mb sh ( MULTI-DHA,WITH VIT K,) 27 mg iron-800 mcg-260 mg Take by mouth. 05/21/2018 Active Start: 05-21-2018 EGF309-bare-DA -l6-ukw-cbg-fish ( MULTI-DHA,WITH VIT K,) 27 mg iron-800 mcg-260 mg Take by mouth. 0 05/21/2018 Active Comment on above: Take by mouth. valACYclovir 1000 mg oral ta blet (20 sources) Herpesvirus Nucleoside Analog DNA Polymerase Inhibitor, Herpes Simplex Virus Nucleoside Analog DNA Polymerase Inhibitor, Herpes Zoster Virus Nucleoside Analog DNA Polymerase Inhibitor Start: 08-01-2024 End: 08-09-2024 Start: 08-22-2023 End: 03-29-2024 take 1 tablet by mouth twice daily as needed Valacyclovir (Valtrex) 500 mg tablet Discontinued 500 mg PO TWICE A DAY as needed for cold sores August 22, 2023 12:00am March 29, 2024 4:05am Completed/Discontinued Medications Medication Drug Class(es) Dates Sig (Normalized) Sig (Original) acetaminophen 325 mg / HYDROcodone bitartrate 5 mg oral tablet (20 sources) Opioid Agonist Start: 07-24-2019 End: 07-27-2019 take 1 tablet by mouth every six hours as needed Hydrocodone-Acetami nophen Discontinued 1 TABLET PO EVERY 6 HOURS NEEDED 10 3 July 24, 2019 5:59pm July 27, 2019 12:02am Start: 07-24-2019 End: 07-27-2019 Hydrocodone-Acetaminophen 1 TABLET tablet Discontinued 1 {tbl} PO EVERY 6 HOURS NEEDED as needed for Pain 10 3 July 24, 2019 July 26, 2019 12:00am July 27, 2019 12:02am Ureteric colic Unspecified renal colic acetaminophen 325 mg / oxyCODONE hydrochloride 5 mg oral tablet (20 sources) Opioid Agonist Start: 03-29-2024 End: 04-15-2024 [...] by mouth. ibuprofen 600 mg oral tablet (20 sources) Nonsteroidal Anti-inflammatory Drug Start: 2024 End: [...] by mouth per pa ckage instructions Multivit 52-Risn-Byfnpt 1-Dha (Pnv-Dha) 27 mg iron-1 mg -300 mg capsule (20 sources) Start: 2023 End: 2024 Multivit 05-Wdta-Jdgaio 1-Dha (Pnv-Dha) 27 mg iron-1 mg -300 mg capsule Discontinued 1 NMA PO DAILY August 22, 2023 12:00am March 29, 2024 4:05am ondansetron 4 mg disintegrating oral tablet (20 sources) Serotonin-3 Receptor Antagonist Start: 2024 End: 2024 take 1 tablet by mouth every eight hours as needed for nausea Ondansetron 4 mg tablet,disintegrating Discontinued 4 mg PO EVERY 8 HOURS NEEDED as needed for Nausea 10 0 March 29, 2024 1:00am April 15, 2024 10:01am Tablet (20 sources) Start: 2019 End: 2023 take 1 [...] services in other specified circumstances] 04-15-2024 Episodic Bacterial infection; unspecified site (7 sources) Bacteria present; Translations: [Streptococcus, group B, as the cause of diseases classified elsewhere] Onset: 12-25-2024 12-05-2024 Episodic Comment on above: treat in labor Calculus of urinary tract (20 sources) Ureteric colic; Translations: [Unspecified renal colic] 07-25-2019 Episodic Genitourinary symptoms and ill-defined conditions (20 sources) Blood in urine; Translations: [Hematuria, unspecified] 04-06-2024 Episodic Immunizations and screening for infectious disease (1 source) Encounter for immunization; Translations: [Encounter for immunization] Onset: 10-16-2024 Episodic Other complications of (20 sources) Missed miscarriage; Translations: [Missed ] 05-30-2024 Episodic Comment on above: 12 week missed ab no FHT seen. H/O D&C 09/2023 with SM Other complications of (20 sources) High risk ; Translations: [Supervision of high risk , unspecified, unspecified trimester] 05-30-2024 Episodic Comment on above: , CODY 12/29 PC: Christian Martinez Kynzie, Dawson BF: Sulaiman , CODY 04/17/24, P C Christian Hein Kynzie, Dawson BF Sulaiman PRR , CODY 12/29 P C: Christian Hein Kynzie, Dawson BF: Sulaiman PRR , CODY 12/29 b oy PC: Christian Hein Kynzie, Dawson BF: Sulaiman Other complications of (20 sources) Abnormal findings on screening of mother; Translations: [Abnormal chromosomal and genetic finding on screening of mother] 06-20-2024 Episodic Comment on above: NIPT XYY, discussed genetic counseling and offered MFM referral, will discuss further at next visit NIPT XYY, discussed genetic counseling and offered MFM referral, had anatomy scan and WNL. declined genetic counseling visit. ANC worksheet sent, need to ask peds when genetic testing is done after . NIPT XYY, discussed genetic counseling and offered MFM referral, had anatomy scan and WNL. declined genetic counseling visit. ANC worksheet sent, need to ask peds when genetic testing is done after . ordered growth US 32 and 26 weeks, and plan weekly NSTs from 36 weeks on Other complications of (20 sources) Abnormal amniotic fluid; Translations: [Other abnormal findings on screening of mother] 11-13-2024 Episodic Other complications of (1 source) Supervision of with other poor reproductive or obstetric history, third trimester; Translations: [Supervision of with other poor reproductive or obstetric history, third trimester] Onset: 12-25-2024 Episodic Other complications of (2 sources) Abnormal chromosomal and genetic finding on screening of mother; Translations: [Abnormal chromosomal and genetic finding on screening of mother] Onset: 12-02-2024 Episodic Other complications of (2 sources) Missed ; Translations: [Missed ] Onset: 12-02-2024 Episodic Other complications of (2 sources) Supervision of high risk , unspecified, third trimester; Translations: [Supervision of high risk , unspecified, third trimester] Onset: 12-02-2024 Episodic Other complications of (1 source) Other abnormal findings on screening of mother; Translations: [Other abnormal findings on screening of mother] Onset: 12-12-2024 Episodic Other complications of (1 source) Endocrine, nutritional and metabolic diseases complicating , third trimester; Translations: [Endocrine, nutritional and metabolic diseases complicating , third trimester] Onset: 11-29-2024 Episodic Other complications of (1 source) Supervision of high risk , unspecified, unspecified trimester; Translations: [Supervision of high risk , unspecified, unspecified trimester] Onset: 10-22-2024 Episodic Other ear and sense organ disorders (2 sources) Otalgia, left ear; Translations: [Otalgia, left ear] Onset: 06-10-2017 Episodic Other and delivery including normal (20 sources) Vaginal delivery; Translations: [Encounter for full-term uncomplicated delivery] Onset: 06-19-2024 Episodic Comment on above: NIPT w gender & calderón ier- undecided NEEDS pap and GCC at 2nd visit. See note. declines NIPT GBS pos, NIPT w gend er & carrier- undecided Other screening for suspected conditions (not mental disorders or infectious disease) (20 sources) Thyroid hormone tests abnormal; Translations: [Other specified abnormal findings of blood chemistry] Onset: 12-02-2024 10-17-2023 Episodic Comment on above: need free [...] of bilateral eustachian tubes] Onset: 06-10-2017 Episodic Polyhydramnios and other problems of amniotic cavity (8 sources) Oligohydramnios; Translations: [Oligohydramnios, third trimester, not applicable or unspecified] Onset: 12-12-2024 12-04-2024 Episodic Residual codes; unclassified (1 source) Gestation period, 39 weeks; Translations: [39 weeks gestation of ] Episodic Residual codes; unclassified (20 sources) Family history of autism; Translations: [Family [...] (HCC)] Onset: 07-02-2024 Episodic Residual codes; unclassified (2 sources) 36 weeks gestation of ; Translations: [36 weeks gestation of ] Onset: 12-02-2024 Episodic Residual codes; unclassified (1 source) 35 weeks gestation of ; Translations: [35 weeks gestation of ] Onset: 11-25-2024 Episodic Residual codes; unclassified (1 source) 33 weeks gestation of ; Translations: [33 weeks gestation of ] Onset: 11-12-2024 Episodic Residual codes; unclassified (1 source) 31 weeks gestation of ; Translations: [31 weeks gestation of ] Onset: 10-31-2024 Episodic Thyroid disorders (20 sources) Hypothyroidism; Translations: [Hypothyroidism, unspecified] Onset: 04-30-2024 05-30-2024 Chronic Comment on above: Levothyroxine 112mcg Levothyroxine 112mcg 88mcg-repeat labs 08/23 Varicose veins of lower extremity (20 sources) Varicose veins of lower extremity; Translations: [Asymptomatic varicose veins of unspecified lower extremity] 11-01-2023 Episodic Comment on above: left leg above the k nee Viral infection (1 source) Viral disease; Translations: [Viral infection, unspecified] Episodic Past or Other Problems Problem Classification Problem Date Documented Da te Episodic/Chronic Abdominal pain (1 source) Unspecified abdominal pain; Translations: [Unspecified abdominal pain] Onset: 04-15-2024 Episodic Malaise and fatigue (6 sources) Fatigue; Translations: [Other fatigue] Onset: 04-26-2024 04-15-2024 Episodic Other complications of (1 source) Endocrine, nutritional and metabolic diseases complicating , unspecified trimester; Translations: [Endocrine, nutritional and metabolic diseases complicating , unspecified trimester] Onset: 08-28-2024 Episodic Residual codes; unclassified (1 source) 25 weeks gestation of ; Translations: [25 weeks gestation of ] Onset: 09-17-2024 Episodic Residual codes; unclassified (1 source) 21 weeks gestation of ; Translations: [21 weeks gestation of ] Onset: 08-23-2024 Episodic Residual codes; unclassified (1 source) 17 weeks gestation of ; Translations: [17 weeks gestation of ] Onset: 07-24-2024 Episodic Residual codes; unclassified (1 source) 13 weeks gestation of ; Translations: [13 weeks gestation of ] Onset: 06-27-2024 Episodic Residual codes; unclassified (1 source) 9 weeks gestation of ; Translations: [9 weeks gestation of ] Onset: 05-30-2024 Episodic NEGATED: Highlighted row has been ruled out!Unclassified (1 source) No known active problems 07-02-2024 Results Test Name Value Interpretation Reference Range Facility Rule out Beta Strep (Grp. B) on 12-06-2024 BECK Streptococcus agalactiae (B) Amount Growth Growth Streptococcus agalactiae (B): REACTION Ampicillin Islt LUCIA <=0.25 cefTRIAXone Islt LUCIA <=0.12 S Clindamycin Islt LUCIA <=0.25 S Clindamycin.induced Susc Islt NEG Linezolid Islt LUCIA <=2 S Vancomycin Islt LUCIA 0.5 S Normal [facility] Comment on above: Performed By: #### M 100.0741 ####[facility] [address] [place], [address] Discharge Instructionon 10-0 5 Discharge Instruction [facility] Medical Records Department [address] [facility] [place] [address] Instructions for Home/Discharge Instructions 12/05/2437 MR#: [id number] Acct: [id number] Name: VESTA HERNANDEZ Rep #: [id number] : 1995 29 From: Vera Love MD PCP: Dr. Mary Nunn MD Status:ADM IN Discharge Instructions DC O2, CPAP, BIPAP needs Home O2 Discharge instructions: No Dressing / Incision Discharge Activity: Return to Normal Activity, May Not Drive (while taking narcotic pain medications.) and May Shower May resume sexual activity in: 4-6 weeks Dressing / Incision Call your doctor if your incision/area has: Continuous Slow Oozing, Sudden Increased Bleeding, Increased Pain/ Swelling, Increased Redness and Foul Smelling Discharge Follow Up Care Please Follow Up With: Vera Love MD When: Call [phone] to make an appointment with your doctor in 6 weeks. If you had elevated blood pressure or 4th degree laceration, you will need to be seen in 2 weeks. Test Results: Test results from this visit will be discussed in further detail at your follow-up appointment, if applicable. Discharge Plan Admission Admit Date/Time: 12/04/24 13:16 Attending Provider: Vera Love Primary Care Provider: Mary Nunn Discharge Orders/Prescription s Prescriptions: No Action Alive Premium 120 mcg-25 mg- 66.7 mg tablet,chewable 2 tab PO DAILY valacyclovir [Valtrex] 1 gram tablet 1,000 mg PO BID PRN (Reason: at onset of cold sore) levothyroxine 88 mcg tablet 88 mcg PO QDAY Qty: 60 1RF Referrals / Follow Up: Mary Nunn MD [Primary Care Provider, Internal Medicine] 12/05/2438 Vera Love MD CC: Dr. Mary Nunn MD Signed Normal [facility] MR/OB.VAGDELIon 12-05-2024 MR/OB.VAGDELI [facility] Medical Records Department [address] [place] [address] OB Vaginal Delivery 12/05/2434 MR#: [id number] Acct: [id number] Name: VESTA HERNANDEZ Rep #: [id number] : 1995 29 From: Vera Love MD PCP: Dr. Mary Nunn MD Status:ADM IN Location: [place] [address] Assessment Plan (1) Oligohydramnios in third trimester: (2) Abnormal genetic test during : COMMENT: NIPT XYY, discussed genetic counseling and offered MFM referral, had anatomy scan and WNL. declined genetic counseling visit. ANC worksheet sent, need to ask peds when genetic testing is done after . ordered growth US 32 and 26 weeks, and plan weekly NSTs from 36 weeks on (3) Missed with demise before 20 completed weeks of gestation: COMMENT: H/O D C 09/2023 with SM (4) Hypothyroid: QUALIFIERS: Hypothyroidism type: acquired Qualified Code(s): E03.9 - Hypothyroidism, unspecified COMMENT: Levothyroxine 112mcg 88mcg-repeat labs 08/23 (5) Supervision of high-risk : QUALIFIERS: Trimester: third trimester Qualified Code(s): O09.93 - Supervision of high risk , unspecified, third trimester COMMENT: PRR , CODY 12/29 boy PC: Christian Hein Kynzie, Dawson BF: Sulaiman (6) : QUALIFIERS: Weeks of gestation: 36 weeks Qualified Code(s): Z3A.36 - 36 weeks gestation of COMMENT: NIPT w gender carrier- undecided (7) Abnormal TSH: COMMENT: need free T4 now. If normal, repeat TSH and Free T4 in 3 months Maternal Data Information CODY Calculator Estimated Delivery Date Method Current WG Current Estimate 12/29/24 LMP (Certain) 36w 4d Other Estimates 12/26/24 Ultrasound #1 37w 0d Vaginal Delivery Maternal Presentation Maternal Presentation: see assessment and plan Vaginal Delivery Information Procedure Performed: Spontaneous Vaginal Delivery Surgeon/Anita r: Vrea Love Date of Procedure: 12/05/24 Pre-Procedure Diagnosis: oligo Type of anesthesia: Epidural Estimated Blood Loss: 100 Findings Description of procedure: Patient began pushing and delivered the head in the VAUGHN presentation. The head was delivered atraumatically and a loose nuchal cord ???1 was identified and easily reduced over the infant's head. The anterior and posterior shoulders delivered without complication followed by the rest of the infant and the infant was placed on the maternal abdomen. Delayed cord clamping was employed for approximately 60 seconds. Cord was clamped and cut and gentle traction was applied to the cord and the placenta delivered spontaneously immediately following it was noted to be intact with three- vessel cord. The perineum and vagina were inspected and was noted to have no laceration. EBL was 100 cc. Patient and infant tolerated delivery well. Presentation: Vertex Placental Delivery Description: Spontaneous Specimen collected: Yes Description of specimen(s) removed: placenta Leather Seasoner transmission systems operator: No Post Vaginal Deli Medications given after delivery: Other (pitocin) Complication Complications: No Multi Select Codes Urinary/Genital Urinary/Genital CPT Codes: 18980 Vaginal Delivery+ PP Care([facility]) 12/05/24 9878 Cosigner Signature (if applicable): CC: Dr. Mary Nunn MD; Dr. Vera Love MD Signed Normal [facility] AST(SGOT)on 12-04-2024 AST [Catalytic activity/Vol] 20 U/L Normal <=31 [facility] Comment on above: Performed By: #### L 501.0900, L501.1400, L501.4100 ####[facility] [address] [place], [address] Absolute lymphocyte countOrd ered By: Vera Love on 12-04-2024 Lymphocytes Auto (Unsp spec) [#/Vol] 1.92 10*3/uL 0.83-4.51 [facility] Absolute neutrophil countOrd ered By: Vera Love on 12-04-2024 Neutrophils (Bld) [#/Vol] 7.0 10*3/uL 2.0-7.7 [facility] Alanine Aminotransferas (SGP T)on 12-04-2024 ALT [Catalytic activity/Vol] 10 U/L Normal <=34 [facility] Comment on above: Performed By: #### L 501.1105, L501.4405, L509.8002 ####[facility] [address] [place], [address] Anion gap in Serum or Plasma Ordered By: Vera Kate on 12-04-2024 Anion gap [Moles/Vol] 15 mmol/L 5-15 [facility] Automated lymphocyte count a s percentage of total leukocytesOrdered By: Vera Plazaumer on 12-04-2024 Lymphocytes/100 WBC Auto (Unsp spec) 19.9 % 19-41 [facility] BUN/creatinine ratioOrdered By: Veraamerico Love on 12-04-2024 Urea nitrogen/Creatinine [Mass ratio] 7.2 mg/mg Low 10- [facility] Basophil percentageOrdered B y: Vera Plazaumer on 12-04-2024 Basophils/100 WBC (Bld) 0.3 % 0-1 [facility] Bilirubin, totalOrdered By: Veraamerico Love on 12-04-2024 Bilirubin [Mass/Vol] 0.44 mg/dL 0.00-1.30 [facility] CBC W/Diff, Automatedon Absolute Lymph 1.92 X10 3/uL Normal 0.83-4.51 [facility] Comment on above: Performed By: #### L 100.0100, BTS ####[facility] [address] [place], [address] Absolute Neut 7.0 X10 3/uL Normal 2.0-7.7 [facility] Comment on above: Performed By: #### L 100.0100, BTS ####[facility] [address] [place], [address] Basophils/100 WBC (Bld) 0.3 % Normal 0-1 [facility] Comment on above: Performed By: #### L 100.0100, BTS ####[facility] [address] [place], [address] Eosinophils/100 WBC (Bld) 0.3 % Normal 0-5 [facility] Comment on above: Performed By: #### L 100.0100, BTS ####[facility] [address] [place], [address] Erythrocyte distribution width (RBC) [Ratio] 14.0 % Normal 11.6-14.6 [facility] Comment on above: Performed By: #### L 100.0100, BTS ####[facility] [address] [place], [address] Hematocrit (Bld) [Volume fraction] 34.7 % Low 37-47 [facility] Comment on above: Performed By: #### L 100.0100, BTS ####[facility] [address] [place], [address] Hemoglobin (Bld) [Mass/Vol] 11.7 g/dL Low 12.0-15.0 [facility] Comment on above: Performed By: #### L 100.0100, BTS ####[facility] [address] [place], [address] IG% 0.700 Normal 0.0-0.9 [facility] Comment on above: Result Comment: IG% - Immature Granulocytes (promyelocytes, myelocytes and metamyelocytes) > 1% indicates that a LEFT SHIFT is Present. Performed By: #### L 100.0100, BTS ####[facility] [address] [place], [address] Lymphocytes/100 WBC (Bld) 19.9 % Normal 19-41 [facility] Comment on above: Performed By: #### L 100.0100, BTS ####[facility] [address] [place], [address] MCH (RBC) [Entitic mass] 30.5 pg Normal 27.0-32.0 [facility] Comment on above: Performed By: #### L 100.0100, BTS ####[facility] [address] [place], [address] MCHC (RBC) [Mass/Vol] 33.7 g/dL Normal 32-36 [facility] Comment on above: Performed By: #### L 100.0100, BTS ####[facility] [address] [place], [address] MCV (RBC) [Entitic vol] 90.6 fL Normal 81-99 [facility] Comment on above: Performed By: #### L 100.0100, BTS ####[facility] [address] [place], [address] Monocytes/100 WBC (Bld) 5.9 % Normal 0-10 [facility] Comment on above: Performed By: #### L 100.0100, BTS ####[facility] [address] [place], [address] Neutrophils/100 WBC (Bld) 72.9 % High 47-70 [facility] Comment on above: Performed By: #### L 100.0100, BTS ####[facility] [address] [place], [address] Nucleated RBC (Bld) [#/Vol] 0 10*3/uL Normal 0-5 [facility] Comment on above: Performed By: #### L 100.0100, BTS ####[facility] [address] [place], [address] Platelet mean volume (Bld) [Entitic vol] 11.4 fL Normal 6.2-12.0 [facility] Comment on above: Performed By: #### L 100.0100, BTS ####[facility] [address] [place], [address] Platelets (Bld) [#/Vol] 171 10*3/uL Normal 150-450 [facility] Comment on above: Performed By: #### L 100.0100, BTS ####[facility] [address] [place], [address] RBC (Bld) [#/Vol] 3.83 10*6/uL Low 4.2-5.4 [facility] Comment on above: Performed By: #### L 100.0100, BTS ####[facility] [address] [place], [address] RDW SD 46.0 fl High 35.1-43.9 [facility] Comment on above: Performed By: #### L 100.0100, BTS ####[facility] [address] [place], [address] WBC (Bld) [#/Vol] 9.7 10*3/uL Normal 4.4-11.0 [facility] Comment on above: Performed By: #### L 100.0100, BTS ####[facility] [address] [place], [address] Carbon dioxide, total [Moles /volume] in Central venous bloodOrdered By: Vera Love on 12-04-2024 CO2 [Moles/Vol] 21.2 mmol/L 21.0-32.0 [facility] Chloride assayOrdered By: Marsha Love on 12-04-2024 Chloride [Moles/Vol] 104 mmol/L 98-108 [facility] Metabolic Prof ilon 12-04-2024 Albumin [Mass/Vol] 4.2 g/dL Normal 3.5-5.0 [facility] Comment on above: Performed By: #### L 501.9520, L506.0400, L100.0100, L506.1000, L503.6030, L503.6550 #### [facility] [address] [place], [address] Albumin/Globulin [Mass ratio] 1.3 {ratio} Normal 0.9-2.4 [facility] Comment on above: Performed By: #### L 501.9520, L506.0400, L100.0100, L506.1000, L503.6030, L503.6550 #### [facility] [address] [place], [address] ALK PHOS 103 U/L Normal 35-104 [facility] Comment on above: Performed By: #### L 501.9520, L506.0400, L100.0100, L506.1000, L503.6030, L503.6550 #### [facility] [address] [place], [address] ALT [Catalytic activity/Vol] 9 U/L Normal <=34 [facility] Comment on above: Performed By: #### L 501.9520, L506.0400, L100.0100, L506.1000, L503.6030, L503.6550 #### [facility] [address] [place], [address] AST [Catalytic activity/Vol] 20 U/L Normal <=31 [facility] Comment on above: Performed By: #### L 501.9520, L506.0400, L100.0100, L506.1000, L503.6030, L503.6550 #### [facility] [address] [place], [address] Bilirubin [Mass/Vol] 0.44 mg/dL Normal 0.00-1.30 [facility] Comment on above: Performed By: #### L 501.9520, L506.0400, L100.0100, L506.1000, L503.6030, L503.6550 #### [facility] [address] [place], [address] BUN/CRE 7.2 RATIO Low 10-20 [facility] Comment on above: Performed By: #### L 501.9520, L506.0400, L100.0100, L506.1000, L503.6030, L503.6550 #### [facility] [address] [place], [address] Calcium [Mass/Vol] 9.3 mg/dL Normal 7.6-11.0 [facility] Comment on above: Performed By: #### L 501.9520, L506.0400, L100.0100, L506.1000, L503.6030, L503.6550 #### [facility] [address] [place], [address] Chloride [Moles/Vol] 104 mmol/L Normal 98-108 [facility] Comment on above: Performed By: #### L 501.9520, L506.0400, L100.0100, L506.1000, L503.6030, L503.6550 #### [facility] [address] [place], [address] CO2 [Moles/Vol] 21.2 mmol/L Normal 21.0-32.0 [facility] Comment on above: Performed By: #### L 501.9520, L506.0400, L100.0100, L506.1000, L503.6030, L503.6550 #### [facility] [address] [place], [address] Creatinine [Mass/Vol] 0.57 mg/dL Low 0.70-1.20 [facility] Comment on above: Performed By: #### L 501.9520, L506.0400, L100.0100, L506.1000, L503.6030, L503.6550 #### [facility] [address] [place], [address] ECRCL 154.23 ml/min Normal 50-250 [facility] Comment on above: Performed By: #### L 501.9520, L506.0400, L100.0100, L506.1000, L503.6030, L503.6550 #### [facility] [address] [place], [address] GAP 15 Normal 5-15 [facility] Comment on above: Performed By: #### L 501.9520, L506.0400, L100.0100, L506.1000, L503.6030, L503.6550 #### [facility] [address] [place], [address] GFR/1.73 sq M.predicted among non-blacks MDRD (S/P/Bld) [Vol rate/Area] 125 mL/min/{1.73_m2} Normal >60 [facility] Comment on above: Result Comment: mL/m in/1.73m2 CKD-EPI Creatinine Equation (2020) Performed By: #### L 501.9520, L506.0400, L100.0100, L506.1000, L503.6030, L503.6550 #### [facility] [address] [place], [address] Globulin (S) [Mass/Vol] 3.2 g/dL Normal 2.2-4.2 [facility] Comment on above: Performed By: #### L 501.9520, L506.0400, L100.0100, L506.1000, L503.6030, L503.6550 #### [facility] [address] [place], [address] Glucose [Mass/Vol] 78 mg/dL Normal 70-99 [facility] Comment on above: Performed By: #### L 501.9520, L506.0400, L100.0100, L506.1000, L503.6030, L503.6550 #### [facility] [address] [place], [address] Potassium [Moles/Vol] 3.0 mmol/L Low 3.3-5.1 [facility] Comment on above: Performed By: #### L 501.9520, L506.0400, L100.0100, L506.1000, L503.6030, L503.6550 #### [facility] [address] [place], [address] Sodium [Moles/Vol] 140 mmol/L Normal 133-145 [facility] Comment on above: Performed By: #### L 501.9520, L506.0400, L100.0100, L506.1000, L503.6030, L503.6550 #### [facility] [address] [place], [address] T PROT 7.4 g/dL Normal 5.9-8.4 [facility] Comment on above: Performed By: #### L 501.9520, L506.0400, L100.0100, L506.1000, L503.6030, L503.6550 #### [facility] [address] [place], [address] Urea nitrogen [Mass/Vol] 4 mg/dL Normal 4-19 [facility] Comment on above: Performed By: #### L 501.9520, L506.0400, L100.0100, L506.1000, L503.6030, L503.6550 #### [facility] [address] [place], [address] Eosinophil percentageOrdered By: Vera Love on 12-04-2024 Eosinophils/100 WBC (Bld) 0.3 % 0-5 [facility] Erythrocyte distribution wid th ratioOrdered By: Vera Love on 12-04-2024 Erythrocyte distribution width (RBC) [Ratio] 14.0 % 11.6-14.6 [facility] Erythrocyte distribution wid th standard deviationOrdered By: Vera Love on 12-04-2024 Erythrocyte distribution width (RBC) [Ratio] 46.0 fl High 35.1-43.9 [facility] Glomerular filtration rate ( GFR) estimation/1.73 sq m using serum, plasma, or whole bOrdered By: Vera Love on 12-04-2024 GFR/1.73 sq M.predicted among non-blacks MDRD (S/P/Bld) [Vol rate/Area] 126 mL/min/{1.73_m2} >60 [facility] Comment on above: mL/min/1.73m2 CKD-EP I Creatinine Equation (2020) H AND P Exam - OB/GYNon 10-0 H&P Exam - 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 Mary Nunn MD Status:ADM IN Location: [id number] HPI - General General Date of Admission: 12/04/24 HPI Narrative VESTA HERNANDEZ, is a 29 F who presents for IOL secondary to oligo. no vb lof admits good fm no regular ctx Maternal Data Information CODY Calculator Estimated Delivery Date Method Current WG Current Estimate 12/29/24 LMP (Certain) 36w 3d Other Estimates 12/26/24 Ultrasound #1 36w 6d PFSH PFSH Medical History Missed Kidney stone Alcohol use Low iron Migraine headache Blackout History of echocardiogram (spontaneous vaginal delivery) Home Medications ???Medication ???Instructions ???Recorded ???Last Taken ???Type levothyroxine 88 mcg tablet 88 mcg PO QDAY thyroid #60 tabs 12/04/24 Rx feoncltp-vex-mvuex 120 mcg-dha 25 2 tab PO DAILY 08/09/24 12/03/24 History mg-herb no.293 66.7 mg chew tablet (Alive Premium ) valacyclovir 1 gram tablet 1,000 mg PO BID PRN at onset of Unknown History (Valtrex) cold sore Allergy/AdvReac Type Severity Reaction Status Date / Time No Known Allergies Allergy Verified 12/04/24 15:54 Family History Father Cancer, Onset Age: 57 Prostate ca Hypertension Grandfather Cancer, Onset Age: 70 Maternal Prostate Cancer Grandmother COPD (chronic obstructive pulmonary disease) Maternal Mother Hypertension Sister Fatty liver due to alcoholism Unknown Thyroid disorder Aunt Thyroid disorder Surgical History H/O dilation and curettage History of cystoscopy S/P foot surgery, right History of laparoscopic appendectomy ( 07/19/19) Social History adopted: No household members: significant other and children housing: house number of children: 4 current occupational status: unemployed current occupation: [employer] pets and animals: No history of [...] 5-6 times per week duration: 30-45 minutes/day andie/yarsani: None seatbelt use: always do you feel [...] live - full term 8#1oz Female epidural [place] [facility] Paul 03/03/18 [place] 39 live - full term 8#13oz Male epidural [facility] Dr. Elio Hilario 10/06/19 [place] 38 live - full term 6#3oz Female epidural [facility] Richie Hilario 05/23/21 [place] 38 live - full term 8#5oz Male epidural [facility] Richie Hilario 10/16/23 D C Visit Details Expected Delivery Route/Plan Labor Preferences- CB/BF classes: no labor support person: Sulaiman labor intervention preferences: [] pain management options preferred: epidural cut cord/dad catch: cord : yes PP control planned: [] discussed possible routes of delivery and associated risks: [] special requests: [] Plans Covid status: [] Flu vaccine: [] Tdap vaccine: given Rhogam: na LARC form signed: yes Problem list reviewed and updated with the most current plan of care details and appropriate orders placed. Relevant counseling for the gestational age provided. Continue routine care and follow up unless otherwise noted in visit notes/problem list details OB Flowsheet Initial Weight: 163 lb Date -???-???-???-???-?? ?-???-???-???-???-? ??-???-???- EGA Weight BP Urine Prot -???-???-???-???-?? ?-???-???-???-???-? ??-???-???- Glucose FHR FuHt Pres Dilation -???-???-???-???-?? ?-???-???-???-???-? ??-???-???- Effaced St Visit Note 05/30/24 -???-???-???-???-?? ?-???-???-???-???-? ??-???-???- 9w 4d 163 lb 4 oz ( (more content not included)... Normal [facility] Hematocrit Auto (Bld) [Volum e fraction]Ordered By: Vera Love on 12-04-2024 Hematocrit (Bld) [Volume fraction] 34.7 % Low 37-47 [facility] Hemoglobin measurementOrdere d By: Vera Love on 12-04-2024 Hemoglobin (Bld) [Mass/Vol] 11.7 g/dL Low 12.0-15.0 [facility] Immature granulocytes/100 WB C Auto (Bld)Ordered By: Vera Love on 12-04-2024 Immature granulocytes/100 WBC (Bld) 0.700 % 0.0-0.9 [facility] Comment on above: IG% - Immature Granu locytes (promyelocytes, myelocytes and metamyelocytes) > 1% indicates that a LEFT SHIFT is Present. Laboratory - Chemistry and C hemistry - challengeOrdered By: Vera Love on 12-04-2024 AST [Catalytic activity/Vol] 20 U/L <32 [facility] MCV (mean corpuscular volume ) determinationOrdered By: Vera Love on 12-04-2024 MCV (RBC) [Entitic vol] 90.6 fL 81-99 [facility] Mean corpuscular hemoglobin (MCH) determinationOrdered By: Vera Love on 12-04-2024 MCH (RBC) [Entitic mass] 30.5 pg 27.0-32.0 [facility] Mean corpuscular hemoglobin concentration (MCHC) determinationOrdered By: Vera Love on 12-04-2024 MCHC (RBC) [Mass/Vol] 33.7 g/dL 32-36 [facility] Mean platelet volume determi nationOrdered By: Vera Love on 12-04-2024 Platelet mean volume (Bld) [Entitic vol] 11.4 fL 6.2-12.0 [facility] Monocyte percentageOrdered B y: Vera Love on 12-04-2024 Monocytes/100 WBC (Bld) 5.9 % 0-10 [facility] Neutrophil percentageOrdered By: Vera Love on 12-04-2024 Neutrophils/100 WBC (Bld) 72.9 % High 47-70 [facility] Nucleated red blood cell per centageOrdered By: Vera Love on 12-04-2024 Nucleated RBC/100 WBC (Bld) [Ratio] 0 % 0-5 [facility] OB Limited (No Biometrics)on 12-04-2024 OB Limited (No Biometrics) [facility] Services [address] [place] [address] OB Limited (No Biometrics) MR#: [id number] Acct: [id number] Name: VESTA HERNANDEZ Rep #: [id number] : 1995 F 29 From: Antelmo ayala MD PCP: Dr. Mary Nunn MD Status: REG CLI Study: OB Limited (No Biometrics) Date of Exam: 12/04 Exam# [id number] Ordering Dr: Vera Love PROCEDURE: OB LIMITED (NO BIOMETRICS) N/A REASON FOR EXAM: ES TECHNIQUE: Procedure Code: USOBL Modality: US Procedure: OB LIMITED (NO BIOMETRICS) COMPARISON: Prior study dated November 18, 2004. FINDINGS Number: 1 Position: Vertex Placental Position: Anterior and not low-lying Placental Abnormalities: No evidence of previa. ESTIMATED GESTATIONAL AGE: Baseline: 36 weeks and 3 days ESTIMATED DATE OF DELIVERY: Baseline: December 29, 2024 BIOPHYSICAL ASSESSMENT: Amniotic Fluid Volume: 2.8 cm Amniotic Fluid Index: 4.8 cm (8-24 cm normal range) Cardiac Motion: 143 beats per minute (average) Trunk and Limb Motion: Present. US/OB Limited (No Biometrics) IMPRESSION: Decreased amniotic fluid. The results were communicated to the attending physician. Reading Location: [id number] CC: Dr. Mary Nunn MD; Dr. Vera Love MD Personal Lines Underwriter: Signed Normal [facility] Platelet countOrdered By: Marsha Love on 12-04-2024 Platelets (Bld) [#/Vol] 171 10*3/uL 150-450 [facility] Potassium measurement (mass/ volume)Ordered By: Vera Love on 12-04-2024 Potassium (Unsp spec) [Mass/Vol] 3.0 mmol/L Low 3.3-5.1 [facility] Protein+Creatinine Ratio,Uri neon 12-04-2024 PROT:CRE RATIO 488 mg/g CRE High 0-200 [facility] Comment on above: Performed By: #### L 501.0900, L501.1400, L501.4100 ####[facility] [address] [place], [place], [id number] Protein (U) [Mass/Vol] 14.6 mg/dL High 0.0-12.0 [facility] Comment on above: Performed By: #### L 501.0900, L501.1400, L501.4100 ####[facility] [address] [place], [address] UR CREAT 29.90 mg/dL Normal 28.00-217.00 [facility] Comment on above: Performed By: #### L 501.0900, L501.1400, L501.4100 ####[facility] [address] [place], [address] RBC Auto (Bld) [#/Vol]Ordere d By: Vera Love on 12-04-2024 RBC (Bld) [#/Vol] 3.83 10*6/uL Low 4.2-5.4 [facility] Random urine creatinine elle urement (mass/volume)Ordered By: Vera Love on 12-04-2024 Creatinine Unsp time (U) [Mass/Vol] 29.90 mg/dL 28.00-217.00 [facility] Serum Creatinine AND GFRon 1 Creatinine [Mass/Vol] 0.56 mg/dL Low 0.70-1.20 [facility] Comment on above: Performed By: #### L 501.1105, L501.4405, L509.8002 ####[facility] [address] [place], [address] ECRCL 156.98 ml/min Normal 50-250 [facility] Comment on above: Performed By: #### L 501.1105, L501.4405, L509.8002 ####[facility] [address] [place], [address] GFR/1.73 sq M.predicted among non-blacks MDRD (S/P/Bld) [Vol rate/Area] 126 mL/min/{1.73_m2} Normal >60 [facility] Comment on above: Result Comment: mL/m in/1.73m2 CKD-EPI Creatinine Equation (2020) Performed By: #### L 501.1105, L501.4405, L509.8002 ####[facility] [address] [place], [address] Serum creatinine measurement (mass/volume)Ordered By: Vera Love on 12-04-2024 Creatinine [Mass/Vol] 0.56 mg/dL Low 0.70-1.20 [facility] Serum globulin measurementOr dered By: Vera Love on 12-04-2024 Globulin (S) [Mass/Vol] 3.2 g/dL 2.2-4.2 [facility] Serum glucose measurement (m ass/volume)Ordered By: Vera Love on 12-04-2024 Glucose [Mass/Vol] 78 mg/dL 70-99 [facility] Serum or plasma alanine contreras otransferase (ALT) measurementOrdered By: Vera Love on 12-04-2024 ALT [Catalytic activity/Vol] 10 U/L <35 [facility] Serum or plasma albumin elle urement (mass/volume)Ordered By: Vera Love on 12-04-2024 Albumin [Mass/Vol] 4.2 g/dL 3.5-5.0 [facility] Serum or plasma albumin/glob ulin mass ratioOrdered By: Vera Love on 12-04-2024 Albumin/Globulin [Mass ratio] 1.3 {ratio} 0.9-2.4 [facility] Serum or plasma alkaline brennan sphatase measurementOrdered By: Vera Love on 12-04-2024 ALP [Catalytic activity/Vol] 103 U/L 35-104 [facility] Serum or plasma calcium elle urement (mass/volume)Ordered By: Vera Love on 12-04-2024 Calcium [Mass/Vol] 9.3 mg/dL 7.6-11.0 [facility] Serum or plasma urea nitroge n measurement (mass/volume)Ordered By: Vera Love on 12-04-2024 Urea nitrogen [Mass/Vol] 4 mg/dL 4-19 [facility] Serum or plasma uric acid me asurement (mass/volume)Ordered By: Vera Love on 12-04-2024 Urate [Mass/Vol] 4.7 mg/dL 2.6-6.0 [facility] Comment on above: The drugs N-Acetylcy steine and Metamizole may falsely depress this assay. Sodium levelOrdered By: Dinh Love on 12-04-2024 Sodium [Moles/Vol] 140 mmol/L 133-145 [facility] Syphilis Antibodieson 2024 Syphilis Abs Non-Reactive Normal Nonreactive [facility] Comment on above: Performed By: #### L 501.1105, L501.4405, L509.8002 ####[facility] [address] [place], [place], [id number] Total proteinOrdered By: Ceasar Love on 12-04-2024 Protein [Mass/Vol] 7.4 g/dL 5.9-8.4 [facility] Type AND Screenon 12-04-2024 Ab SCREEN GEL Negative Normal [facility] Comment on above: Order Comment: Labor Performed By: #### L 100.0100, BTS ####[facility] [address] [place], [place], [id number] Uric Acidon 12-04-2024 URIC 4.7 mg/dL Normal 2.6-6.0 [facility] Comment on above: Result Comment: The drugs N-Acetylcysteine and Metamizole may falsely depress this assay. Performed By: #### L 501.0900, L501.1400, L501.4100 ####[facility] [address] [place], [address] Urine protein measurement (m ass/volume)Ordered By: Vera Love on 12-04-2024 Protein (U) [Mass/Vol] 14.6 mg/dL High 0.0-12.0 [facility] Urine protein/creatinine mas s ratioOrdered By: Vera Love on 12-04-2024 Protein/Creatinine (U) [Mass ratio] 488 mg/g CRE High 0-200 [facility] White blood cell (WBC) count Ordered By: Vera Love on 12-04-2024 WBC (Bld) [#/Vol] 9.7 10*3/uL 4.4-11.0 [facility] (ROM) Rupture Of Membraneson 12-02-2024 ROM Negative Normal Negative [facility] Comment on above: Result Comment: Amni otic fluid not present indicates No Rupture of Membranes at time of specimen collection. Performed By: #### L 501.9520, L506.0400, L100.0100, L506.1000, L503.6030, L503.6550 #### [facility] [address] [place], [place], [address] Laboratory - Chemistry and C hemistry - challengeOrdered By: America Dudley on 12-02-2024 Glucose Ql (U) Negative [facility] - UrinalysisOrder ed By: America Dudley on 12-02-2024 Protein Ql (U) Negative [facility] Medical Coder Office Visit Reporton 12-02-2024 Medical Coder Office Visit Report [facility] [address], [address] [place] [address] OFFICE VISIT Date of Service: 12/02/24 MR#: [id number] Acct: [id number] Name: VESTA HERNANDEZ Rep #: [id number] : 1995 Provider: FRANDY Peterson ams Age/Sex: 29/F Location: [facility] [place] Status: Signed with Addenda ADDENDUM by FRANDY Dudley on 12/02/24 at 1405 Office Procedure Documentation entered by America Dudley CNM 12/02/24 14:05: Non-stress Test Non-Stress Test Indications for Monitoring: Yes other (abnormal genetic screening ) Heart Rate Baseline: 140 Heart Rate Variability: moderate Movement: Present Heart Rate Accelerations: Present Decelerations: Absent Contractions: Absent Impression: Yes Reactive Non-Stress Test 12/02/24 1405 Date America Dudley CNM cc: * Signed Intake Vital Signs 10/31/24 11:10 11/25/24 10:24 12/02/24 13:19 Height 5 ft 6 in 5 ft 6 in 5 ft 6 in Weight: 175 lb 2 oz BMI 28.3 BP 124/84 H Intake Visit Reasons: 36wk ob/nst Chief Complaint: 36wk ob/nst K 9 [employer] Officer Required: No Is patient in pain?: No Allergies No Known Allergies Allergy (Verified 12/02/24 13:25) Medications ???Medication ???Instructions ???Recorded ???Confirmed ???Type levothyroxine 88 mcg tablet 88 mcg PO QDAY #60 tabs 07/26/24 1 Rx gmjzvpwq-bwe-zjzev 120 mcg-dha 25 2 tab PO DAILY 08/09/24 12/02/24 History mg-herb no.293 66.7 mg chew tablet (Alive Premium ) valacyclovir 1 gram tablet 1,000 mg PO BID PRN at onset of 12/02/24 History (Valtrex) cold sore Last Menstrual Period: [...] 4 current occupational status: unemployed current occupation: [employer] pets and animals: No history of [...] 5-6 times per week duration: 30-45 minutes/day andie/yarsani: None seatbelt use: always do you feel [...] live - full term 8#1oz Female epidural [place] [facility] Paul 03/03/18 [place] 39 live - full term 8#13oz Male epidural [facility] Dr. Elio Hilario 10/06/19 [place] 38 live - full term 6#3oz Female epidural [facility] Richie Hilario 05/23/21 [place] 38 live - full term 8#5oz Male epidural [facility] Richie Hilario 10/16/23 D C HPI 36wk ob/nst Details: VESTA HERNANDEZ is a 29 year old who presents for routine OB visit. OB Visit CODY Calculator Estimated Delivery Date Method Current WG Current Estimate 12/29/24 LMP (Certain) 36w 1d Other Estimates 12/26/24 Ultrasound #1 36w 4d Expected Delivery Route/Plan Labor Preferences- CB/BF classes: no labor support person: Sulaiman labor intervention preferences: [] pain management options preferred: epidural cut cord/dad catch: cord : yes PP control planned: [] discussed possible routes of delivery and associated risks: [] special reque (more content not included)... Normal [facility] Screening beta-hemolytic Str eptococcus cultureOrdered By: America Dudley on 12-02-2024 Beta-hemolytic Streptococcus culture Streptococcus agalactiae (B) Abnormal [facility] Free T3on 11-25-2024 Free T3 [Mass/Vol] 2.3 pg/mL Normal 2.18-3.98 [facility] Comment on above: Performed By: #### L 501.17487, L501.9520, L506.0400 ####[facility] [address] [place], [address] Free T6Uieyqrj By: America perez on 11-25-2024 Free T3 [Mass/Vol] 2.3 pg/mL 2.18-3.98 [facility] Laboratory - Chemistry and C hemistry - challengeOrdered By: Grazyna De Leon on 11-25-2024 Glucose Ql (U) Negative [facility] - UrinalysisOrder ed By: Grazyna De Leon on 11-25-2024 Protein Ql (U) Negative [facility] Medical Coder Office Visit Reporton 11-25-2024 Medical Coder Office Visit Report [facility]'[address], [address] [place] [address] OFFICE VISIT Date of Service: 11/25/24 MR#: [id number] Acct: [id number] Name: VESTA HERNANDEZ Rep #: [id number] : 1995 Provider: TY beavers Age/Sex: 29/F Location[place] [facility] [place] Status: Signed Intake Vital Signs 10/16/24 13:08 11/12/24 13:36 11/25/24 10:24 Height 5 ft 6 in 5 ft 6 in 5 ft 6 in Weight: 172 lb 174 lb 6 oz BMI 27.7 28.1 BP 136/88 H 123/83 H Intake Visit Reasons: 35wk ob Chief Complaint: 35 Week OB K 9 Police Officer Required: No Is patient in pain?: No Allergies No Known Allergies Allergy (Verified 11/25/24 10:25) Medications ???Medication ???Instructions ???Recorded ???Confirmed ???Type levothyroxine 88 mcg tablet 88 mcg PO QDAY #60 tabs 07/26/24 0 11/25/24 Rx [id number]-xeo-ubpmm 120 mcg-dha 25 2 tab PO DAILY 08/09/24 11/25/24 History mg-herb no.293 66.7 mg chew tablet (Alive Premium ) valacyclovir 1 gram tablet 1,000 mg PO BID PRN at onset of 11/25/24 History (Valtrex) cold sore Last Menstrual Period: 03/24/24 Zika: Zika virus [...] 4 current occupational status: unemployed current occupation: [employer] pets and animals: No history of [...] 5-6 times per week duration: 30-45 minutes/day andie/yarsani: None seatbelt use: always do you feel safe at home: Yes additional 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 Date Name GA/Weeks Outcome Route Bth [facility]14 Melvina 40 live - full term 8#1oz Female epidural [place] [facility] Paul 03/03/18 Christian 39 live - full term 8#13oz Male epidural [facility] Dr. Elio Hilario 10/06/19 Skip 38 live - full term 6#3oz Female epidural [facility] Hol Oswaldo Hilario 05/23/21 Jamin 38 live - full term 8#5oz Male epidural [facility] Hol Oswaldo Hilario 10/16/23 D C HPI 35wk ob Details: VESTA HERNANDEZ is a 29 year old who presents for routine OB visit. OB Visit CODY Calculator Estimated Delivery Date Method Current WG Current Estimate 12/29/24 LMP (Certain) 35w 1d Other Estimates 12/26/24 Ultrasound #1 35w 4d Expected Delivery Route/Plan Labor Preferences- CB/BF classes: no labor support person: Sulaiman labor intervention preferences: [] pain management options preferred: epidural cut cord/dad catch: cord : yes PP control planned: [] discussed possible routes of delivery and associated risks: [] special requests: [] Specific Issue/Plans Covid status: [] Flu vaccine: [] Tdap vaccine: given Rhogam: na LARC form signed: yes Problem list reviewed and updated with the most current plan of care details and appropriate orders placed. Relevant counseling for the gestational age provided. Continue routine care and follow up unless otherwise noted in visit notes/problem list details Initial Weight: 163 lb Date -???-???-???-???-?? ?-???-???-???-???-? ??-???-???- EGA Weight BP Urine Prot -???-? (more content not included)... Normal [facility] T4 Free Directon 11-25-2024 T4 FREE DIRECT 1.00 ng/dL Normal 0.76-1.46 [facility] Comment on above: Performed By: #### L 501.54336, L501.9520, L506.0400 ####[facility] [address] [place], [place], [address] T4 freeOrdered By: America perez on 11-25-2024 Free T4 [Mass/Vol] 1.00 ng/dL 0.76-1.46 [facility] TSH DL <= 0.005 mIU/L QnOrde red By: America Dudley on 11-25-2024 TSH Qn 2.320 uIU/mL 0.300-4.200 [facility] Thyroid Stim Hormone (TSH)on 11-25-2024 TSH 2.320 uIU/mL Normal 0.300-4.200 [facility] Comment on above: Performed By: #### L 501.32581, L501.9520, L506.0400 ####[facility] [address] [facility] [place], [place], [id number] OB Limited (No Biometrics)on 11-18-2024 OB Limited (No Biometrics) [facility] Imaging Services [address] [place], [place] [address] OB Limited (No Biometrics) MR#: [id number] Acct: [id number] Name: VESTA HERNANDEZ Rep #: [id number] : 1995 F 29 From: Adrian Dinero MD PCP: Dr. Mary Nunn MD Status: REG CLI Study: OB Limited (No Biometrics) Date of Exam: 11/18 Exam# [id number] Ordering Dr: Vera Love PROCEDURE: OB LIMITED (NO BIOMETRICS) 11/18/2024 REASON FOR EXAM: ES TECHNIQUE: Procedure Code: USOBL Modality: US Procedure: OB LIMITED (NO BIOMETRICS) COMPARISON: 11/11/2024. FINDINGS * position: Cephalic * cardiac activity: Present, 167 bpm *Cervical length: 3.5 cm, cervical os closed *Amniotic fluid: Maximal vertical pocket 6.2 cm, ES 13.4 cm (within normal limits) *Placenta: Fundal, anterior, not low-lying, grade 1 * age by LMP: 34 weeks 1 day *CODY by LMP: 12/29/2024 US/OB Limited (No Biometrics) IMPRESSION: Single live intrauterine in cephalic presentation at 34 weeks 1 day by LMP. Normal cardiac activity. Normal amniotic fluid volume (ES 13.4 cm). Placenta anterior/fundal, not low-lying, grade 1. Cervix measures 3.5 cm with closed os. Reading Location: [id number] CC: Dr. Mary Nunn MD; Dr. Vera Love MD Personal Lines Underwriter: Signed Normal [facility] - Chemistry and C hemistry - challengeOrdered By: America Dudley on 11-12-2024 Glucose Ql (U) Negative [facility] - UrinalysisOrder ed By: America Dudley on 11-12-2024 Protein Ql (U) Negative [facility] Medical Coder Office Visit Reporton 11-12-2024 Medical Coder Office Visit Report [facility] [address], [address] [place] [address] OFFICE VISIT Date of Service: 11/12/24 MR#: [id number] Acct: [id number] Name: VESTA HERNANDEZ Rep #: [id number] : 1995 Provider: FRANDY Peterson ams Age/Sex: 29/F Location: [facility] [place] Status: Signed Intake Vital Signs 10/16/24 13:08 10/31/24 11:10 11/12/24 13:36 Height 5 ft 6 in 5 ft 6 in 5 ft 6 in Weight: 172 lb BMI 27.7 BP 136/88 H Intake Visit Reasons: 33wk ob Chief Complaint: 33wk OB K 9 Police Officer Required: No Is patient in pain?: No Allergies No Known Allergies Allergy (Verified 11/12/24 13:34) Medications ???Medication ???Instructions ???Recorded ???Confirmed ???Type levothyroxine 88 mcg tablet 88 mcg PO QDAY #60 tabs 07/26/24 0 11/12/24 Rx [id number]-nwb-orrao 120 mcg-dha 25 2 tab PO DAILY 08/09/24 11/12/24 History mg-herb no.293 66.7 mg chew tablet (Alive Premium ) valacyclovir 1 gram tablet 1,000 mg PO BID PRN at onset of 11/12/24 History (Valtrex) cold sore Last Menstrual Period: [...] 4 current occupational status: unemployed current occupation: [employer] pets and animals: No history of [...] 5-6 times per week duration: 30-45 minutes/day andie/yarsani: None seatbelt use: always do you feel [...] live - full term 8#1oz Female epidural [place] [facility] rhiannon Miller 03/03/18 [place] 39 live - full term 8#13oz Male epidural [facility] Dr. Elio Hilario 10/06/19 Skip 38 live - full term 6#3oz Female epidural [facility] Richie Hilario 05/23/21 Jamin 38 live - full term 8#5oz Male epidural [facility] Richie Hilario 10/16/23 D C HPI 33wk ob Details: VESTA HERNANDEZ is a 29 year old who presents for routine OB visit. OB Visit CODY Calculator Estimated Delivery Date Method Current WG Current Estimate 12/29/24 LMP (Certain) 33w 2d Other Estimates 12/26/24 Ultrasound #1 33w 5d Expected Delivery Route/Plan Labor Preferences- CB/BF classes: no labor support person: Sulaiman labor intervention preferences: [] pain management options preferred: epidural cut cord/dad catch: cord : yes PP control planned: [] discussed possible routes of delivery and associated risks: [] special requests: [] Specific Issue/Plans Covid status: [] Flu vaccine: [] Tdap vaccine: given Rhogam: na LARC form signed: yes Problem list reviewed and updated with the most current plan of care details and appropriate orders placed. Relevant counseling for the gestational age provided. Continue routine care and follow up unless otherwise noted in visit notes/problem list details Initial Weight: 163 lb Date -???-???-???-???-?? ?-???-???-???-???-? ??-???-???- EGA Weight BP Urine Prot -???-???-???-???-?? ?-???-???-???-???-? ??-???-???- Glucose FHR FuHt Pres Dilation -???-???-???-? (more content not included)... Normal [facility] OB Limited With Biometricson 11-11-2024 OB Limited With Biometrics [facility] Imaging Services [address] [place] [address] OB Limited With Biometrics MR#: [id number] Acct: [id number] Name: VESTA HERNANDEZ Rep #: [id number] : 1995 F 29 From: Antelmo ayala MD PCP: Dr. Mary Nunn MD Status: REG CLI Study: OB Limited With Biometrics Date of Exam: 11/11 Exam# [id number] Ordering Dr: Vera Love PROCEDURE: OB LIMITED WITH BIOMETRICS 11/11/2024 REASON FOR EXAM: WELLBEING TECHNIQUE: Procedure Code: USOBGROWTH Modality: US Procedure: OB LIMITED WITH BIOMETRICS COMPARISON: None FINDINGS Number: 1 Position: Vertex Placental Position: Anterior and not low-lying. Placental Abnormalities: No evidence of previa. DIMENSIONS: Biparietal Diameter: 9 cm: 36 weeks and 3 days: 9 9 percentile/ Head Circumference: 32.5 cm: 36 weeks and 5 days: 94 percentile/ Abdominal Circumference: 32.3 cm: 36 weeks and 4 days: 92 percentile/ Femur Length: 6.4 cm: 33 weeks and 1 day: 38 percentile/ ESTIMATED WEIGHT: 2458 g plus/-364 g ESTIMATED WEIGHT PERCENTILE (24+ weeks): 82nd ESTIMATED GESTATIONAL AGE: Baseline: 33 weeks and 1 day By Ultrasound: 36 weeks and 1 day ESTIMATED DATE OF DELIVERY: Baseline: December 29, 2024 By Ultrasound: December 08, 2024 BIOPHYSICAL ASSESSMENT: Amniotic Fluid Volume: 3.6 cm Amniotic Fluid Index: 9.8 cm (8-24 cm normal range) Cardiac Motion: 140 beats per minute (average) Trunk and Limb Motion: Present. MATERNAL ANATOMY: Adnexa: Neither maternal ovary is successfully identified. US/OB Limited With Biometrics IMPRESSION: Single live intrauterine gestation with a mean gestational age of 36 weeks and 1 day. Reading Location: [facility] CC: Dr. Mary Nunn MD; Dr. Vera Love MD Personal Lines Underwriter: Signed Normal [facility] Laboratory - Chemistry and C hemistry - challengeOrdered By: Vera Love on 10-31-2024 Glucose Ql (U) Negative [facility] - UrinalysisOrder ed By: Vera Love on 10-31-2024 Protein Ql (U) Negative [facility] Medical Coder Office Visit Reporton 10-31-2024 Medical Coder Office Visit Report [facility] [address], [address] [place] [address] OFFICE VISIT Date of Service: 10/31/24 MR#: [id number] Acct: [id number] Name: VESTA HERNANDEZ Rep #: [id number] : 1995 Provider: Dr. Vera velasquez MD Age/Sex: 29/F Location[place] [facility] [place] Status: Signed Intake Vital Signs 08/23/24 14:28 10/16/24 13:08 10/31/24 11:06 10/31/24 11:10 Height 5 ft 6 in 5 ft 6 in 5 ft 6 in 5 ft 6 in Weight: 170 lb BMI 27.4 BP 130/78 H Intake Visit Reasons: 30 wk ob K 9 Police Officer Required: No Is patient in pain?: No Allergies No Known Allergies Allergy (Verified 10/31/24 11:06) Medications ???Medication ???Instructions ???Recorded ???Confirmed ???Type levothyroxine 88 mcg tablet 88 mcg PO QDAY #60 tabs 07/26/24 0 10/31/24 Rx kowvrhmi-byi-bfohg 120 mcg-dha 25 2 tab PO DAILY 08/09/24 10/31/24 History mg-herb no.293 66.7 mg chew tablet (Alive Premium ) valacyclovir 1 gram tablet 1,000 mg PO BID PRN at onset of 10/31/24 History (Valtrex) cold sore Last Menstrual Period: 03/24/24 Zika: Zika virus [...] 4 current occupational status: unemployed current occupation: [employer] pets and animals: No history of recent [...] 5-6 times per week duration: 30-45 minutes/day andie/yarsani: None seatbelt use: always do you feel safe at home: Yes additional 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 Date Name GA/Weeks Outcome Route Bth Weight Gen Labor Lgth Anesthesia Del [facility] Provider FOB 03/23/14 Melvina 40 live - full term 8#1oz Female epidural [place] [facility] Paul 03/03/18 [place] 39 live - full term 8#13oz Male epidural [facility] Dr. Elio Hilario 10/06/19 Skip 38 live - full term 6#3oz Female epidural [facility] 05/23/21 [place] 38 live - full term 8#5oz Male epidural [facility] Richie Hilario 10/16/23 D C HPI 30 wk ob Details: VESTA HERNANDEZ is a 29 year old who presents for routine OB visit. OB Visit CODY Calculator Estimated Delivery Date Method Current WG Current Estimate 12/29/24 LMP (Certain) 31w 4d Other Estimates 12/26/24 Ultrasound #1 32w 0d Expected Delivery Route/Plan Labor Preferences- CB/BF classes: no labor support person: Sulaiman labor intervention preferences: [] pain management options preferred: epidural cut cord/dad catch: cord : yes PP control planned: [] discussed possible routes of delivery and associated risks: [] special requests: [] Specific Issue/Plans Covid status: [] Flu vaccine: [] Tdap vaccine: given Rhogam: na LARC form signed: yes Problem list reviewed and updated with the most current plan of care details and appropriate orders placed. Relevant counseling for the gestational age provided. Continue routine care and follow up unless otherwise noted in visit notes/problem list details Initial Weight: 163 lb Date -???-???-???-???-?? ?-???-???-???-???-? ??-???-???- EGA Weight BP Urine Prot -???-???-???-???-?? ?-???-???-???-???-? (more content not included)... Normal [facility] Absolute lymphocyte countOrd ered By: Vera Love on 10-16-2024 Lymphocytes Auto (Unsp spec) [#/Vol] 1.88 10*3/uL 0.83-4.51 [facility] Absolute neutrophil countOrd ered By: Vera Love on 10-16-2024 Neutrophils (Bld) [#/Vol] 7.1 10*3/uL 2.0-7.7 [facility] Automated lymphocyte count a s percentage of total leukocytesOrdered By: Vera Love on 10-16-2024 Lymphocytes/100 WBC Auto (Unsp spec) 19.3 % 19-41 [facility] Basophil percentageOrdered B y: Vera Love on 10-16-2024 Basophils/100 WBC (Bld) 0.4 % 0-1 [facility] CBC W/Diff, Automatedon 09-28 Absolute Lymph 1.88 X10 3/uL Normal 0.83-4.51 [facility] Comment on above: Performed By: #### L 501.4220, L506.0400, L100.0100, L506.1000, L503.6030, L503.6550 #### [facility] [address] [place], [address] Absolute Neut 7.1 X10 3/uL Normal 2.0-7.7 [facility] Comment on above: Performed By: #### L 501.9520, L506.0400, L100.0100, L506.1000, L503.6030, L503.6550 #### [facility] [address] [place], [address] Basophils/100 WBC (Bld) 0.4 % Normal 0-1 [facility] Comment on above: Performed By: #### L 501.9520, L506.0400, L100.0100, L506.1000, L503.6030, L503.6550 #### [facility] [address] [place], [address] Eosinophils/100 WBC (Bld) 0.7 % Normal 0-5 [facility] Comment on above: Performed By: #### L 501.9520, L506.0400, L100.0100, L506.1000, L503.6030, L503.6550 #### [facility] [address] [place], [address] Erythrocyte distribution width (RBC) [Ratio] 13.5 % Normal 11.6-14.6 [facility] Comment on above: Performed By: #### L 501.9520, L506.0400, L100.0100, L506.1000, L503.6030, L503.6550 #### [facility] [address] [place], [address] Hematocrit (Bld) [Volume fraction] 33.4 % Low 37-47 [facility] Comment on above: Performed By: #### L 501.9520, L506.0400, L100.0100, L506.1000, L503.6030, L503.6550 #### [facility] [address] [place], [address] Hemoglobin (Bld) [Mass/Vol] 11.0 g/dL Low 12.0-15.0 [facility] Comment on above: Performed By: #### L 501.9520, L506.0400, L100.0100, L506.1000, L503.6030, L503.6550 #### [facility] [address] [place], [address] IG% 0.800 Normal 0.0-0.9 [facility] Comment on above: Result Comment: IG% - Immature Granulocytes (promyelocytes, myelocytes and metamyelocytes) > 1% indicates that a LEFT SHIFT is Present. Performed By: #### L 501.9520, L506.0400, L100.0100, L506.1000, L503.6030, L503.6550 #### [facility] [address] [place], [address] Lymphocytes/100 WBC (Bld) 19.3 % Normal 19-41 [facility] Comment on above: Performed By: #### L 501.9520, L506.0400, L100.0100, L506.1000, L503.6030, L503.6550 #### [facility] [address] [place], [address] MCH (RBC) [Entitic mass] 31.0 pg Normal 27.0-32.0 [facility] Comment on above: Performed By: #### L 501.9520, L506.0400, L100.0100, L506.1000, L503.6030, L503.6550 #### [facility] [address] [place], [address] MCHC (RBC) [Mass/Vol] 32.9 g/dL Normal 32-36 [facility] Comment on above: Performed By: #### L 501.9520, L506.0400, L100.0100, L506.1000, L503.6030, L503.6550 #### [facility] [address] [place], [address] MCV (RBC) [Entitic vol] 94.1 fL Normal 81-99 [facility] Comment on above: Performed By: #### L 501.9520, L506.0400, L100.0100, L506.1000, L503.6030, L503.6550 #### [facility] [address] [place], [address] Monocytes/100 WBC (Bld) 6.2 % Normal 0-10 [facility] Comment on above: Performed By: #### L 501.9520, L506.0400, L100.0100, L506.1000, L503.6030, L503.6550 #### [facility] [address] [place], [address] Neutrophils/100 WBC (Bld) 72.6 % High 47-70 [facility] Comment on above: Performed By: #### L 501.9520, L506.0400, L100.0100, L506.1000, L503.6030, L503.6550 #### [facility] [address] [place], [address] Nucleated RBC (Bld) [#/Vol] 0 10*3/uL Normal 0-5 [facility] Comment on above: Performed By: #### L 501.9520, L506.0400, L100.0100, L506.1000, L503.6030, L503.6550 #### [facility] [address] [place], [address] Platelet mean volume (Bld) [Entitic vol] 11.9 fL Normal 6.2-12.0 [facility] Comment on above: Performed By: #### L 501.9520, L506.0400, L100.0100, L506.1000, L503.6030, L503.6550 #### [facility] [address] [place], [address] Platelets (Bld) [#/Vol] 187 10*3/uL Normal 150-450 [facility] Comment on above: Performed By: #### L 501.9520, L506.0400, L100.0100, L506.1000, L503.6030, L503.6550 #### [facility] [address] [place], [address] RBC (Bld) [#/Vol] 3.55 10*6/uL Low 4.2-5.4 [facility] Comment on above: Performed By: #### L 501.9520, L506.0400, L100.0100, L506.1000, L503.6030, L503.6550 #### [facility] [address] [place], [address] RDW SD 46.5 fl High 35.1-43.9 [facility] Comment on above: Performed By: #### L 501.9520, L506.0400, L100.0100, L506.1000, L503.6030, L503.6550 #### [facility] [address] [place], [address] WBC (Bld) [#/Vol] 9.7 10*3/uL Normal 4.4-11.0 [facility] Comment on above: Performed By: #### L 501.9520, L506.0400, L100.0100, L506.1000, L503.6030, L503.6550 #### [facility] [address] [place], [address] Eosinophil percentageOrdered By: Vera Love on 10-16-2024 Eosinophils/100 WBC (Bld) 0.7 % 0-5 [facility] Erythrocyte distribution wid th ratioOrdered By: Vera Love on 10-16-2024 Erythrocyte distribution width (RBC) [Ratio] 13.5 % 11.6-14.6 [facility] Erythrocyte distribution wid th standard deviationOrdered By: Veraamerico Plazaumer on 10-16-2024 Erythrocyte distribution width (RBC) [Ratio] 46.5 fl High 35.1-43.9 [facility] Free T3on 10-16-2024 Free T3 [Mass/Vol] 2.8 pg/mL Normal 2.18-3.98 [facility] Comment on above: Performed By: #### L 501.9520, L506.0400, L100.0100, L506.1000, L503.6030, L503.6550 #### [facility] [address] [place], [place], [id number] (834) Free O8Yblfexv By: Devora pedroza on 10-16-2024 Free T3 [Mass/Vol] 2.8 pg/mL 2.18-3.98 [facility] Glucose Challenge Gest 1H 50 anuj 10-16-2024 GLU GEST 50g 1H 78 mg/dL Normal 70-140 [facility] Comment on above: Performed By: #### L 501.9520, L506.0400, L100.0100, L506.1000, L503.6030, L503.6550 #### [facility] [address] [facility] [place], [place], [id number] Glucose measurement at 2 luis enrique rs post-dose gestational glucose tolerance testOrdered By: Vera Love on 10-16-2024 Glucose [Mass/Vol] 78 mg/dL 70-140 [facility] HIVon 10-16-2024 HIV Non-Reactive Normal Nonreactive [facility] Comment on above: Result Comment: Non- Reactive Reactive Repeatedly reactive samples must be confirmed according to CDC recommended confirmatory algorithms. The subresults for either HIVAG or AHIV can be used as an aid in the selection of the confirmation algorithm for reactive samples. Send out specimens with Reactive results to [facility] for confirmation. Order the HIV antibody detection and differentiation: lc#[id number] Performed By: #### L 501.9520, L506.0400, L100.0100, L506.1000, L503.6030, L503.6550 #### [facility] [address] [place], [address] Hematocrit Auto (Bld) [Volum e fraction]Ordered By: Vera Love on 10-16-2024 Hematocrit (Bld) [Volume fraction] 33.4 % Low 37-47 [facility] Hemoglobin measurementOrdere d By: Vera Love on 10-16-2024 Hemoglobin (Bld) [Mass/Vol] 11.0 g/dL Low 12.0-15.0 [facility] Immature granulocytes/100 WB C Auto (Bld)Ordered By: Vera Love on 10-16-2024 Immature granulocytes/100 WBC (Bld) 0.800 % 0.0-0.9 [facility] Comment on above: IG% - Immature Granu locytes (promyelocytes, myelocytes and metamyelocytes) > 1% indicates that a LEFT SHIFT is Present. Laboratory - Chemistry and C hemistry - challengeOrdered By: Grazyna De Leon on 10-16-2024 Glucose Ql (U) Negative [facility] - UrinalysisOrder ed By: Grazyna De Leon on 10-16-2024 Protein Ql (U) Negative [facility] MCV (mean corpuscular volume ) determinationOrdered By: Vera Love on 10-16-2024 MCV (RBC) [Entitic vol] 94.1 fL 81-99 [facility] Mean corpuscular hemoglobin (MCH) determinationOrdered By: Vera Love on 10-16-2024 MCH (RBC) [Entitic mass] 31.0 pg 27.0-32.0 [facility] Mean corpuscular hemoglobin concentration (MCHC) determinationOrdered By: Vera Love on 10-16-2024 MCHC (RBC) [Mass/Vol] 32.9 g/dL 32-36 [facility] Mean platelet volume determi nationOrdered By: Vera Love on 10-16-2024 Platelet mean volume (Bld) [Entitic vol] 11.9 fL 6.2-12.0 [facility] Monocyte percentageOrdered B y: Vera Love on 10-16-2024 Monocytes/100 WBC (Bld) 6.2 % 0-10 [facility] Neutrophil percentageOrdered By: Vera Love on 10-16-2024 Neutrophils/100 WBC (Bld) 72.6 % High 47-70 [facility] No Panel InformationOrdered By: Vera Love on 10-16-2024 HIV (1&2) Antibody Non-Reactive Nonreactive [facility] [facility] Comment on above: Non-ReactiveReactive Repeatedly reactive samples must be confirmed according to CDC recommended confirmatory algorithms. The subresults for either HIVAG or AHIV can be used as an aid in the selection of the confirmation algorithm for reactive samples.Send out specimens with Reactive results to [facility] for confirmation.Order the HIV antibody detection and differentiation: #[id number] Nucleated red blood cell per centageOrdered By: Vera Love on 10-16-2024 Nucleated RBC/100 WBC (Bld) [Ratio] 0 % 0-5 [facility] Medical Coder Office Visit Reporton 10-16-2024 Medical Coder Office Visit Report [facility]'s [address], [address] [place] [address] OFFICE VISIT Date of Service: 10/16/24 MR#: [id number] Acct: [id number] Name: VESTA HERNANDEZ Rep #: [id number] : 1995 Provider: TY beavers Age/Sex: 29/F [place] [facility] [place] Status: Signed Intake Vital Signs 08/23/24 14:28 09/17/24 10:47 10/16/24 12:58 10/16/24 13:08 Height 5 ft 6 in 5 ft 6 in 5 ft 6 in 5 ft 6 in Weight: 163 lb 8 oz 168 lb 8 oz BMI 26.4 27.1 BP 119/81 H 124/72 H Intake Visit Reasons: 28 wk ob/glucose Chief Complaint: 28 Week OB/Glucose K 9 Police Officer Required: No Is patient in pain?: No Allergies No Known Allergies Allergy (Verified 10/16/24 12:58) Medications ???Medication ???Instructions ???Recorded ???Confirmed ???Type levothyroxine 88 mcg tablet 88 mcg PO QDAY #60 tabs 07/26/24 0 10/16/24 Rx oubfauaw-pju-wimzc 120 mcg-dha 25 2 tab PO DAILY 08/09/24 10/16/24 History mg-herb no.293 66.7 mg chew tablet (Alive Premium ) valacyclovir 1 gram tablet 1,000 mg PO BID PRN at onset of 10/16/24 History (Valtrex) cold sore Last Menstrual Period: 03/24/24 Zika: Zika virus screening: Negative : Yes PFSH PFSH Medical History Missed Kidney stone [...] 4 current occupational status: unemployed current occupation: [employer] pets and animals: No history of [...] 5-6 times per week duration: 30-45 minutes/day andie/yarsani: None seatbelt use: always do you feel [...] live - full term 8#1oz Female epidural [place] [facility] Paul 03/03/18 [place] 39 live - full term 8#13oz Male epidural [facility] Dr. Elio Hilario 10/06/19 [place] 38 live - full term 6#3oz Female epidural WC Hol mes-Igor Sulaiman 05/23/21 [place] 38 live - full term 8#5oz Male epidural WC Hol mes-Igor Sulaiman 10/16/23 D C HPI 28 wk ob/glucose Details: VESTA HERNANDEZ is a 29 year old who presents for routine OB visit. OB Visit CODY Calculator Estimated Delivery Date Method Current WG Current Estimate 12/29/24 LMP (Certain) 29w 3d Other Estimates 12/26/24 Ultrasound #1 29w 6d Expected Delivery Route/Plan Labor Preferences- CB/BF classes: no labor support person: Sulaiman labor intervention preferences: [] pain management options preferred: epidural cut cord/dad catch: cord : yes PP control planned: [] discussed possible routes of delivery and associated risks: [] special requests: [] Specific Issue/Plans Covid status: [] Flu vaccine: [] Tdap vaccine: given Rhogam: na LARC form signed: yes Problem list reviewed and updated with the most current plan of care details and appropriate orders placed. Relevant counseling for the gestational age provided. Continue routine care and follow up unless otherwise noted in visit notes/problem list details Initial Weight: 163 lb Date -???-???-???-???-?? ?-???-? (more content not included)... Normal [facility] Platelet countOrdered By: Marsha Love on 10-16-2024 Platelets (Bld) [#/Vol] 187 10*3/uL 150-450 [facility] RBC Auto (Bld) [#/Vol]Ordere d By: Vera Love on 10-16-2024 RBC (Bld) [#/Vol] 3.55 10*6/uL Low 4.2-5.4 [facility] Syphilis Antibodieson 2024 Syphilis Abs Non-Reactive Normal Nonreactive [facility] Comment on above: Performed By: #### L 501.9520, L506.0400, L100.0100, L506.1000, L503.6030, L503.6550 #### [facility] [address] [place], [address] T4 Free Directon 10-16-2024 T4 FREE DIRECT 1.20 ng/dL Normal 0.76-1.46 [facility] Comment on above: Performed By: #### L [id number], L506.0400, L100.0100, L506.1000, L503.6030, L503.6550 #### [facility] [address] [place], [address] T4 freeOrdered By: Vera cottrell on 10-16-2024 Free T4 [Mass/Vol] 1.20 ng/dL 0.76-1.46 [facility] TSH DL <= 0.005 mIU/L QnOrde red By: Tosin Remy on 10-16-2024 TSH Qn 0.598 uIU/mL 0.300-4.200 [facility] Thyroid Stim Hormone (TSH)on 10-16-2024 TSH 0.598 uIU/mL Normal 0.300-4.200 [facility] Comment on above: Performed By: #### L 501.9520 ####[facility] [address] [place], [address] White blood cell (WBC) count Ordered By: Vera Love on 10-16-2024 WBC (Bld) [#/Vol] 9.7 10*3/uL 4.4-11.0 [facility] - Chemistry and C hemistry - challengeOrdered By: Vera Love on 09-17-2024 Glucose Ql (U) Negative [facility] - UrinalysisOrder ed By: Vera Love on 09-17-2024 Protein Ql (U) Negative [facility] Medical Coder Office Visit Reporton 09-17-2024 Medical Coder Office Visit Report [facility] [address], [address] [place] [address] OFFICE VISIT Date of Service: 09/17/24 MR#: [id number] Acct: [id number] Name: VESTA HERNANDEZ Rep #: [id number] : 1995 Provider: Dr. Vera velasquez MD Age/Sex: 29/F Location: [facility] [place] Status: Signed Intake Vital Signs 07/24/24 14:30 08/23/24 14:28 09/17/24 10:47 Height 5 ft 6 in 5 ft 6 in 5 ft 6 in Weight: 163 lb 8 oz BMI 26.4 BP 119/81 H Intake Visit Reasons: 25 wk ob K 9 Police Officer Required: No Is patient in pain?: No Allergies No Known Allergies Allergy (Verified 09/17/24 10:49) Medications ???Medication ???Instructions ???Recorded ???Confirmed ???Type levothyroxine 88 mcg tablet 88 mcg PO QDAY #60 tabs 07/26/24 0 09/17/24 Rx ykamsxgo-yfb-qqfmj 120 mcg-dha 25 2 tab PO DAILY 08/09/24 09/17/24 History mg-herb no.293 66.7 mg chew tablet (Alive Premium ) valacyclovir 1 gram tablet 1,000 mg PO BID PRN at onset of 09/17/24 History (Valtrex) cold sore Last Menstrual Period: 03/24/24 Zika: Zika virus [...] 4 current occupational status: unemployed current occupation: [employer] pets and animals: No history of [...] 5-6 times per week duration: 30-45 minutes/day andie/yarsani: None seatbelt use: always do you feel [...] live - full term 8#1oz Female epidural [place] [facility] Paul 03/03/18 [place] 39 live - full term 8#13oz Male epidural [facility] Dr. Elio Hilario 10/06/19 [place] 38 live - full term 6#3oz Female epidural [facility] Richie Hilario 05/23/21 [place] 38 live - full term 8#5oz Male epidural [facility] Richie Hilario 10/16/23 D C HPI 25 wk ob Details: VESTA HERNANDEZ is a 29 year old who presents for routine OB visit. OB Visit CODY Calculator Estimated Delivery Date Method Current WG Current Estimate 12/29/24 LMP (Certain) 25w 2d Other Estimates 12/26/24 Ultrasound #1 25w 5d Expected Delivery Route/Plan Labor Preferences- CB/BF classes: [...] -???-???-???-???-?? ?-???-???-???-???-? ??-???-???- Glucose FHR FuHt Pres Dil (more content not included)... Normal [facility] Thyroid Peroxidase ABon 06-2 THYR PEROX AB < 9 Normal 0-34 [facility] Comment on above: Result Comment: Perf ormed at: CB - [facility] [address] [id number] Edge Cutting Machine Operator: Gopi Covington PhD, Phone: [phone] Performed By: #### L [id number] #### [facility] [address] [place], [address] Free T3on 08-23-2024 Free T3 [Mass/Vol] 2.6 pg/mL Normal 2.18-3.98 [facility] Comment on above: Performed By: #### L [id number], L506.0400, L100.0100, L506.1000, L503.6030, L503.0050 #### [facility] [address] [place], [address] Free D8Iwrikus By: Devora pedroza on 08-23-2024 Free T3 [Mass/Vol] 2.6 pg/mL 2.18-3.98 [facility] - Chemistry and C hemistry - challengeOrdered By: Devora Go on 08-23-2024 Glucose Ql (U) Negative [facility] - UrinalysisOrder ed By: Devora Go on 08-23-2024 Protein Ql (U) Negative [facility] Medical Coder Office Visit Reporton 08-23-2024 Medical Coder Office Visit Report [facility] [address], [address] [place] [address] OFFICE VISIT Date of Service: 08/23/24 MR#: [id number] Acct: [id number] Name: VESTA HERNANDEZ Rep #: [id number] : 1995 Provider: FRANDY anaya Age/Sex: 29/F Location[place] [facility] [place] Status: Signed Intake Vital Signs 05/30/24 13:01 08/09/24 14:10 08/23/24 14:28 Height 5 ft 6 in 5 ft 6 in 5 ft 6 in Weight: 160 lb 8 oz BMI 25.9 BP 127/85 H Intake Visit Reasons: 21wk ob Chief Complaint: 21wk OB K 9 Police Officer Required: No Is patient in pain?: No Allergies No Known Allergies Allergy (Verified 08/23/24 14:29) Medications ???Medication ???Instructions ???Recorded ???Confirmed ???Type levothyroxine 88 mcg tablet 88 mcg PO QDAY #60 tabs 07/26/24 0 08/23/24 Rx zyctprkr-jkd-jaoyq 120 mcg-dha 25 2 tab PO DAILY 08/09/24 08/23/24 History mg-herb no.293 66.7 mg chew tablet (Alive Premium ) valacyclovir 1 gram tablet 1,000 mg PO BID PRN at onset of 08/23/24 History (Valtrex) cold sore Last Menstrual [...] 4 current occupational status: unemployed current occupation: [employer] pets and animals: No history of [...] 5-6 times per week duration: 30-45 minutes/day andie/yarsani: None seatbelt use: always do you feel [...] live - full term 8#1oz Female epidural [place] [facility] Paul 03/03/18 [place] 39 live - full term 8#13oz Male epidural [facility] Dr. Elio Hilario 10/06/19 [place] 38 live - full term 6#3oz Female epidural [facility] Richie Hilario 05/23/21 [place] 38 live - full term 8#5oz Male epidural [facility] Richie Hilario 10/16/23 D C HPI 21wk ob Details: VESTA HERNANDEZ is [...] ??-???-???- Glucose FHR FuHt Pres Dilation -???-???-???-???-?? ?-???- (more content not included)... Normal [facility] Serum or plasma thyroperoxid ase antibody assay (units/volume)Ordered By: Meliton Herr on 08-23-2024 TPO Ab Qn [IU]/mL 0-34 [facility] Comment on above: Performed at: [facility] [address] [id number] Director: Gopi Covington PhD, Phone: [phone] T4 Free Directon 08-23-2024 T4 FREE DIRECT 1.20 ng/dL Normal 0.76-1.46 [facility] Comment on above: Performed By: #### L [id number], L506.0400, L100.0100, L506.1000, L503.6030, L503.6550 #### [facility] [address] [place], [place], [address] T4 freeOrdered By: Devora pedroza on 08-23-2024 Free T4 [Mass/Vol] 1.20 ng/dL 0.76-1.46 [facility] TSH DL <= 0.005 mIU/L QnOrde red By: Devora Go on 08-23-2024 TSH Qn 0.220 uIU/mL Low 0.300-4.200 [facility] Thyroid Stim Hormone (TSH)on 08-23-2024 TSH 0.220 uIU/mL Low 0.300-4.200 [facility] Comment on above: Performed By: #### L [id number], L506.0400, L100.0100, L506.1000, L503.6030, L503.6550 #### [facility] [address] [place], [place], [address] Progress Noteon 08-21-2024 Breaker Off Authentication Interface Message Text New patient 08/22/2024 RE: Vesta Hernandez : 1995 AGE: 29 y.o. CSN#: [id number] Gestational Age: 21 Weeks Delivery Hospital: [facility] Reason for visit: Chief Complaint Patient [...] in visit on 08/21/24 Echo New Narrative [facility] [place] [address] [email or web address] Echocardiogram Report M-mode, complete 2D, complete spectral Doppler, and color Doppler PATIENT: Vesta Hernandez STUDY DATE/TIME: Aug 21 2024 1:27PM HEIGHT: 167.6cm : 1995 WEIGHT: 71.2kg AGE: 29year(s) BSA/BMI: 1.83m^2 / 25.3kg/m^2 GENDER: F BP: 122 / 73 LOCATION: [facility] REFERRING PHYSICIAN: Anitra Garza Cnp ORDERING PROVIDER: Anitra Garza Cnp READING PHYSICIAN: NEIDA Cook ELECTRICIAN MARINE: Kylah Chen RDCS SUMMARY: No significant congenital [...] free DNA with XYY. Recommendations: follow-up if track rider hears a heart murmur or otherwise clinically indicated. REASON FOR EXAM: Abnormal CFDNA, suboptimal cardiac views. : : - Maternal age: 29yr. - : 6. - Parity: 4. - Estimated delivery date: 12/29/2024. - Gestational age: 21 [id number]. STUDY AND PROCEDURE DATA: The patient is . Procedure Description: New ([id number]) . Study status: Routine. Location: lab. Procedure: [...] a patent foramen ovale. There is a ltivv-tu-zaku shunt. Left atrium: - The atrium is [...] normal. Sy (more content not included)... Normal [facility] Endocrinology Visit Reporton 08-09-2024 Endocrinology Visit Report [facility] [address] [place] [address] OFFICE VISIT Date of Service: 08/09/24 MR#: [id number] Acct: [id number] Name: VESTA HERNANDEZ Rep #: [id number] : 1995 Provider: Brett Diego Age/Sex: 28/F [place] [facility] [place] Signed Intake Vital Signs 07/24/24 14:30 08/09/24 14:10 Height 5 ft 6 in 5 ft 6 in Weight: 158 lb BMI 25.4 BP 114/84 H Blood Pressure Location Lt brachial Position Sitting Pulse 105 H Pulse Source Monitor Pulse Oximetry (%) 94 Oxygen Delivery Method room air Intake Visit Reasons: Thyroid Chief Complaint: Thyroid K 9 Police Officer Required: No Accompanied by: Self Is patient in pain?: No Allergies No Known Allergies Allergy (Verified 08/09/24 14:12) Medications ???Medication ???Instructions ???Recorded ???Confirmed ???Type levothyroxine 88 mcg tablet 88 mcg PO QDAY #60 tabs 07/26/24 0 08/09/24 Rx srtlksxs-wvr-mzfeq 120 mcg-dha 25 2 tab PO DAILY 08/09/24 08/09/24 History mg-herb no.293 66.7 mg chew tablet (Alive Premium ) valacyclovir 1 gram tablet 1,000 mg PO BID PRN at onset of History (Valtrex) cold sore Patient : Yes (19wk 5 days) [facility] Medical History Missed Kidney stone Alcohol use [...] 4 current occupational status: unemployed current occupation: [employer] pets and animals: No history of [...] 5-6 times per week duration: 30-45 minutes/day andie/yarsani: None seatbelt use: always do you feel safe at home: Yes additional 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: BF Sulaiman [employer] Female Reproductive History Menstrual Ab [...] the corinne (more content not included)... Normal [facility] - Chemistry and C hemistry - challengeOrdered By: Amelia Mendez on 07-24-2024 Glucose Ql (U) Negative [facility] - UrinalysisOrder ed By: Amelia Mendez on 07-24-2024 Protein Ql (U) Negative [facility] Medical Coder Office Visit Reporton 07-24-2024 Medical Coder Office Visit Report [facility], [address] [place] [address] OFFICE VISIT Date of Service: 07/24/24 MR#: [id number] Acct: [id number] Name: VESTA HERNANDEZ Rep #: [id number] : 1995 Provider: Dr. Amelia Hammonds DO Age/Sex: 28/F Location[place] [facility] [place] Status: Signed Intake Vital Signs 05/30/24 13:01 06/27/24 15:02 07/24/24 14:29 07/24/24 14:30 Height 5 ft 6 in 5 ft 6 in 5 ft 6 in 5 ft 6 in Weight: 157 lb 6 oz BMI 25.4 BP 121/81 H Intake Visit Reasons: 17wk ob K 9 Police Officer Required: No Is patient in pain?: No Allergies No Known Allergies Allergy (Verified 07/24/24 14:28) Medications ???Medication ???Instructions ???Recorded ???Confirmed ???Type yqtxvmpo-gfz-jzfrw 120 mcg-dha 25 tab PO 05/30/24 07/24/24 [...] 4 current occupational status: unemployed current occupation: [employer] pets and animals: No history of [...] 5-6 times per week duration: 30-45 minutes/day andie/yarsani: None seatbelt use: always do you feel [...] live - full term 8#1oz Female epidural [place] [facility] Paul 03/03/18 [place] 39 live - full term 8#13oz Male epidural [facility] Dr. Elio Hilario 10/06/19 [place] 38 live - full term 6#3oz Female epidural [facility] Richie Hilario 05/23/21 [place] 38 live - full term 8#5oz Male epidural [facility] Richie Hilario 10/16/23 D C HPI 17wk ob [...] ?-???-???-???-???-? ??-???-???- (more content not included)... Normal [facility] T4 Free Directon 07-24-2024 T4 FREE DIRECT 1.50 ng/dL High 0.76-1.46 [facility] Comment on above: Performed By: #### L 501.9520, L506.0400, L100.0100, L506.1000, L503.6030, L503.6550 #### [facility] [address] [place], [place], [address] T4 freeOrdered By: Amelia Mendez on 07-24-2024 Free T4 [Mass/Vol] 1.50 ng/dL High 0.76-1.46 [facility] TSH DL <= 0.005 mIU/L QnOrde red By: Tosin Remy on 07-24-2024 TSH Qn 0.061 uIU/mL Low 0.300-4.200 [facility] Thyroid Stim Hormone (TSH)on 07-24-2024 TSH 0.061 uIU/mL Low 0.300-4.200 [facility] Comment on above: Performed By: #### L 501.9520, L506.0400, L100.0100, L506.1000, L503.6030, L503.6550 #### [facility] [place], [address] CNOVon 07-02-2024 CNOV Office Visit ([facility]) ---- VESTA HERNANDEZ ([id number]) 1995 F Date Time Provider Department 07/02/24 6:30 PM SERG GRUBBS [facility] During your visit today, we recorded the following information about you: Temperature Pulse Respiration Blood pressure 98.9 degrees 95/minute 22/minute 110/76 Weight Last Period 71.2 kg 12/10/22 Serg Grubbs, SENIOR TECHNICAL ANALYST.PATTERN CARRIER 07/02/2024 6:50 PM Signed [facility] [address] [address] Dept: [phone] Dept Subjective Subjective Vesta Hernandez is a [...] only minimally provide some relief. States that care home through her symptoms she thought she was [...] Take 100 mcg by mouth once daily.) [id number]-p tyler-epa-fish ( MULTI-DHA,WITH VIT K,) 27 mg [...] and frontal sinus tenderness present. Mouth/Throat: Lips: Cut Off. Mouth: Mucous membranes are moist. No oral [...] - ICD9: V22.2, ICD10: Z3A.14 Serg Grubbs, SENIOR TECHNICAL ANALYST.PATTERN CARRIER Differential Diagnoses - Sinusitis is more likely for the following reason(s): suggested by HANDP Disposition The patient was discharged. Due to length of time that patient has been experiencing her symptoms, we will start her on amoxicillin considering she is 14 weeks . Patient to follow-up with PCP in 3 to 5 days symptoms persist or sooner (more content not included)... Normal [facility] - Chemistry and C hemistry - challengeOrdered By: America Dudley on 06-27-2024 Glucose Ql (U) Negative [facility] - UrinalysisOrder ed By: America Dudley on 06-27-2024 Protein Ql (U) Negative [facility] Medical Coder Office Visit Reporton 06-27-2024 Medical Coder Office Visit Report [facility] [address], [address] [place] [address] OFFICE VISIT Date of Service: 06/27/24 MR#: [id number] Acct: [id number] Name: HERNANDEZVESTA MICHELE Brett Rep #: [id number] : 1995 Provider: FRANDY Peterson ams Age/Sex: 28/F Location: [facility] [place] Status: Signed Intake Vital Signs 04/15/24 09:05 05/30/24 13:01 06/27/24 15:02 Height 5 ft 6 in 5 ft 6 in 5 ft 6 in Weight: 155 lb 4 oz BMI 25.0 BP 119/83 H Intake Visit Reasons: 13wk ob Chief Complaint: 13wk OB K 9 Police Officer Required: No Is patient in pain?: No Allergies No Known Allergies Allergy (Verified 06/27/24 15:00) Medications ???Medication ???Instructions ???Recorded ???Confirmed ???Type shdeqfov-los-evlvc 120 mcg-dha 25 tab PO 05/30/24 06/27/24 [...] 4 current occupational status: unemployed current occupation: [employer] pets and animals: No history of [...] 5-6 times per week duration: 30-45 minutes/day andie/yarsani: None seatbelt use: always do you feel [...] live - full term 8#1oz Female epidural [place] [facility] Paul 03/03/18 [place] 39 live - full term 8#13oz Male epidural [facility] Dr. Elio Hilario 10/06/19 [place] 38 live - full term 6#3oz Female epidural [facility] Hol mes-Igor Sulaiman 05/23/21 Jamin 38 live - full term 8#5oz Male epidural [facility] Hol mes-Igor Sulaiman 10/16/23 D C HPI 13wk ob Details: [...] -???-???-???-???-?? ?-???-???-?? (more content not included)... Normal [facility] Mis.on 06-24-2024 [facility]. 4 COMMENT Normal . [facility] Comment on above: Order Comment: [id number] 8TSH R AB SERUM FZ Result Comment: Test Ordered: [id number] TSH Receptor Antibody (TBII) TSH Receptor Antibody (TBII) <0.3 U/L Reference Range: . Reference Range: Antibody Titer: <1.0 U/L = Negative 1.1 - 1.5 U/L = Equivocal >1.5 U/L = Positive Performed at: [employer] [address] [place] [id number] Edge Cutting Machine Operator: Renato Bates MD, Phone: [phone] Performed at: [address] [id number] Edge Cutting Machine Operator: Gopi Covington PhD, Phone: [phone] Performed By: #### L 501.0985, L506.0400, L100.0100, L506.1000, L503.9652, L503.1804 #### [facility] [address] [place], [address] Absolute lymphocyte countOrd ered By: America Dudley on 06-13-2024 Lymphocytes Auto (Unsp spec) [#/Vol] 1.08 10*3/uL 0.83-4.51 [facility] Absolute neutrophil countOrd ered By: America Dudley on 06-13-2024 Neutrophils (Bld) [#/Vol] 12.0 10*3/uL High 2.0-7.7 [facility] Automated lymphocyte count a s percentage of total leukocytesOrdered By: America Emanuel on 06-13-2024 Lymphocytes/100 WBC Auto (Unsp spec) 7.7 % Low 19-41 [facility] Basophil percentageOrdered B y: America Emanuel on 06-13-2024 Basophils/100 WBC (Bld) 0.3 % 0-1 [facility] CBC W/Diff, Automatedon 05-28 Absolute Lymph 1.08 X10 3/uL Normal 0.83-4.51 [facility] Comment on above: Performed By: #### L 501.9520, L506.0400, L100.0100, L506.1000, L503.6030, L503.6550 #### [facility] [address] [place], [address] Absolute Neut 12.0 X10 3/uL High 2.0-7.7 [facility] Comment on above: Performed By: #### L 501.9520, L506.0400, L100.0100, L506.1000, L503.6030, L503.6550 #### [facility] [address] [place], [address] Basophils/100 WBC (Bld) 0.3 % Normal 0-1 [facility] Comment on above: Performed By: #### L 501.9520, L506.0400, L100.0100, L506.1000, L503.6030, L503.6550 #### [facility] [address] [place], [address] Eosinophils/100 WBC (Bld) 0.4 % Normal 0-5 [facility] Comment on above: Performed By: #### L 501.9520, L506.0400, L100.0100, L506.1000, L503.6030, L503.6550 #### [facility] [address] [place], [address] Erythrocyte distribution width (RBC) [Ratio] 13.8 % Normal 11.6-14.6 [facility] Comment on above: Performed By: #### L 501.9520, L506.0400, L100.0100, L506.1000, L503.6030, L503.6550 #### [facility] [address] [place], [address] Hematocrit (Bld) [Volume fraction] 38.1 % Normal 37-47 [facility] Comment on above: Performed By: #### L 501.9520, L506.0400, L100.0100, L506.1000, L503.6030, L503.6550 #### [facility] [address] [facility] [place], [address] Hemoglobin (Bld) [Mass/Vol] 12.8 g/dL Normal 12.0-15.0 [facility] Comment on above: Performed By: #### L 501.9520, L506.0400, L100.0100, L506.1000, L503.6030, L503.6550 #### [facility] [address] [place], [address] IG% 0.400 Normal 0.0-0.9 [facility] Comment on above: Result Comment: IG% - Immature Granulocytes (promyelocytes, myelocytes and metamyelocytes) > 1% indicates that a LEFT SHIFT is Present. Performed By: #### L 501.9520, L506.0400, L100.0100, L506.1000, L503.6030, L503.6550 #### [facility] [address] [place], [address] Lymphocytes/100 WBC (Bld) 7.7 % Low 19-41 [facility] Comment on above: Performed By: #### L 501.9520, L506.0400, L100.0100, L506.1000, L503.6030, L503.6550 #### [facility] [address] [place], [address] MCH (RBC) [Entitic mass] 29.2 pg Normal 27.0-32.0 [facility] Comment on above: Performed By: #### L 501.9520, L506.0400, L100.0100, L506.1000, L503.6030, L503.6550 #### [facility] [address] [place], [address] MCHC (RBC) [Mass/Vol] 33.6 g/dL Normal 32-36 [facility] Comment on above: Performed By: #### L 501.9520, L506.0400, L100.0100, L506.1000, L503.6030, L503.6550 #### [facility] [address] [place], [address] MCV (RBC) [Entitic vol] 86.8 fL Normal 81-99 [facility] Comment on above: Performed By: #### L 501.9520, L506.0400, L100.0100, L506.1000, L503.6030, L503.6550 #### [facility] [address], [address] Monocytes/100 WBC (Bld) 5.3 % Normal 0-10 [facility] Comment on above: Performed By: #### L 501.9520, L506.0400, L100.0100, L506.1000, L503.6030, L503.6550 #### [facility] [address] [place], [address] Neutrophils/100 WBC (Bld) 85.9 % High 47-70 [facility] Comment on above: Performed By: #### L 501.9520, L506.0400, L100.0100, L506.1000, L503.6030, L503.6550 #### [facility] [address] [place], [address] Nucleated RBC (Bld) [#/Vol] 0 10*3/uL Normal 0-5 [facility] Comment on above: Performed By: #### L 501.9520, L506.0400, L100.0100, L506.1000, L503.6030, L503.6550 #### [facility] [address] [place], [address] Platelet mean volume (Bld) [Entitic vol] 11.2 fL Normal 6.2-12.0 [facility] Comment on above: Performed By: #### L 501.9520, L506.0400, L100.0100, L506.1000, L503.6030, L503.6550 #### [facility] [address] [place], [address] Platelets (Bld) [#/Vol] 215 10*3/uL Normal 150-450 [facility] Comment on above: Performed By: #### L 501.9520, L506.0400, L100.0100, L506.1000, L503.6030, L503.6550 #### [facility] [address] [place], [address] RBC (Bld) [#/Vol] 4.39 10*6/uL Normal 4.2-5.4 [facility] Comment on above: Performed By: #### L 501.9520, L506.0400, L100.0100, L506.1000, L503.6030, L503.6550 #### [facility] [address] [place], [address] RDW SD 43.3 fl Normal 35.1-43.9 [facility] Comment on above: Performed By: #### L 501.9520, L506.0400, L100.0100, L506.1000, L503.6030, L503.6550 #### [facility] [address] [place], [address] WBC (Bld) [#/Vol] 14.0 10*3/uL High 4.4-11.0 [facility] Comment on above: Performed By: #### L 501.9520, L506.0400, L100.0100, L506.1000, L503.6030, L503.6550 #### [facility] [address] [place], [address] Eosinophil percentageOrdered By: America Dudley on 06-13-2024 Eosinophils/100 WBC (Bld) 0.4 % 0-5 [facility] Erythrocyte distribution wid th (RBC) [Ratio]Ordered By: America Dudley on 06-13-2024 Erythrocyte distribution width (RBC) [Entitic vol] 43.3 fL 35.1-43.9 [facility] Erythrocyte distribution wid th ratioOrdered By: America Dudley on 06-13-2024 Erythrocyte distribution width (RBC) [Ratio] 13.8 % 11.6-14.6 [facility] Erythrocyte distribution wid th standard deviationOrdered By: America Dudley on 06-13-2024 Erythrocyte distribution width (RBC) [Ratio] 43.3 fl 35.1-43.9 [facility] HBV surface Ag Ql (S)Ordered By: America Dudley on 06-13-2024 Hepatitis B Surface Antigen Non-Reactive Nonreactive [facility] Comment on above: Reactive: Presumptiv e evidence of HBV. Repeatedly reactive samples must be confirmed using a neutralization test ([employer] HBsAg Confirmatory Test)Non-Reactive: HBsAg not detected; does not exclude the possibility of exposure to HBV HIVon 06-13-2024 HIV Non-Reactive Normal Nonreactive [facility] Comment on above: Result Comment: Non- Reactive Reactive Repeatedly reactive samples must be confirmed according to CDC recommended confirmatory algorithms. The subresults for either HIVAG or AHIV can be used as an aid in the selection of the confirmation algorithm for reactive samples. Send out specimens with Reactive results to [facility] for confirmation. Order the HIV antibody detection and differentiation: elier#[id number] Performed By: #### L 501.9520, L506.0400, L100.0100, L506.1000, L503.6030, L503.6550 #### [facility] [address] [place], [address] Hematocrit Auto (Bld) [Volum e fraction]Ordered By: America Dudley on 06-13-2024 Hematocrit (Bld) [Volume fraction] 38.1 % 37-47 [facility] Hemoglobin measurementOrdere d By: mAerica Dudley on 06-13-2024 Hemoglobin (Bld) [Mass/Vol] 12.8 g/dL 12.0-15.0 [facility] Hepatitis C Antibodyon 06-13 Hepatitis C Ab Non-Reactive Normal Nonreactive [facility] Comment on above: Result Comment: Reac tive: Presumptive evidence of antibodies to HCV. Follow CDC recommendations for supplemental testing. Non-Reactive: Antibodies to HCV were not detected; does not exclude the possibility of exposure to HCV Reactive Results are presumptive evidence of antibodies to HCV. Follow CDC recommendations for supplemental testing. Order confirmation testing: HCV Quant by PCR testing - HCVPCR lc#[id number] Non Reactive: < 0.8 Equivocal: >/= 0.8 to < 1.0 Reactive: >/= 1.0 The CDC requires that a reactive/equivocal HCV antibody result be sent out for confirmation. HCV Quant by PCR testing. Performed By: #### L 501.9520, L506.0400, L100.0100, L506.1000, L503.6030, L503.6550 #### [facility] [address] [place], [address] Hepatitis C antibodyOrdered By: America Dudley on 06-13-2024 Hepatitis C Antibody Non-Reactive Nonreactive [facility] Comment on above: Reactive: Presumptiv e evidence of antibodies to HCV. Follow CDC recommendations for supplemental testing.Non-Reactive: Antibodies to HCV were not detected; does not exclude the possibility of exposure to HCVReactive Results are presumptive evidence of antibodies to HCV. Follow CDC recommendations for supplemental testing.Order confirmation testing: HCV Quant by PCR testing - HCVPCR lc#[id number] Non Reactive: < 0.8 Equivocal: >/= 0.8 to < 1.0 Reactive: >/= 1.0The CDC requires that a reactive/equivocal HCV antibody result be sent out for confirmation. HCV Quant by PCR testing. Immature granulocytes/100 WB C Auto (Bld)Ordered By: America Dudley on 06-13-2024 Immature granulocytes/100 WBC (Bld) 0.400 % 0.0-0.9 [facility] Comment on above: IG% - Immature Granu locytes (promyelocytes, myelocytes and metamyelocytes) > 1% indicates that a LEFT SHIFT is Present. L3890.6102on 06-13-2024 HEP B Surf Ag Non-Reactive Normal Nonreactive [facility] Comment on above: Result Comment: Reac tive: Presumptive evidence of HBV. Repeatedly reactive samples must be confirmed using a neutralization test ([employer] HBsAg Confirmatory Test) Non-Reactive: HBsAg not detected; does not exclude the possibility of exposure to HBV Performed By: #### L 501.9520, L506.0400, L100.0100, L506.1000, L503.6030, L503.6550 #### [facility] [address] [place], [place], [id number] L509.4006on 06-13-2024 Rubella IgG REAC [facility] Comment on above: Result Comment: Anti body Result: Interpretation Non-Reactive: Non-Immune Reactive: Immune The following results were obtained with the [employer] Rubella IgG assay. Results from assays of other manufacturers cannot be used interchangeably. Performed By: #### L 501.9520, L506.0400, L100.0100, L506.1000, L503.6030, L503.6550 #### [facility] [address], [place], [address] Laboratory - Microbiology an d Antimicrobial susceptibilityOrdered By: America Dudley on 06-13-2024 HBV surface Ag Ql (S) Non-Reactive Nonreactive [facility] Comment on above: Reactive: Presumptiv e evidence of HBV. Repeatedly reactive samples must be confirmed using a neutralization test ([employer] HBsAg Confirmatory Test)Non-Reactive: HBsAg not detected; does not exclude the possibility of exposure to HBV Lymphocytes Auto (Unsp spec) [#/Vol]Ordered By: America Dudley on 06-13-2024 Lymphocytes (Bld) [#/Vol] 1.08 10*3/uL 0.83-4.5 1 [facility] Lymphocytes/100 WBC Auto (Un sp spec)Ordered By: America Dudley on 06-13-2024 Lymphocytes/100 WBC (Bld) 7.7 % Low 19-41 [facility] MCV (mean corpuscular volume ) determinationOrdered By: America Dudley on 06-13-2024 MCV (RBC) [Entitic vol] 86.8 fL 81-99 [facility] Mean corpuscular hemoglobin (MCH) determinationOrdered By: America Dudley on 06-13-2024 MCH (RBC) [Entitic mass] 29.2 pg 27.0-32.0 [facility] Mean corpuscular hemoglobin concentration (MCHC) determinationOrdered By: America Dudley on 06-13-2024 MCHC (RBC) [Mass/Vol] 33.6 g/dL 32-36 [facility] Mean platelet volume determi nationOrdered By: America Dudley on 06-13-2024 Platelet mean volume (Bld) [Entitic vol] 11.2 fL 6.2-12.0 [facility] Miscellaneous procedureOrder ed By: America Dudley on 06-13-2024 Miscellaneous Test Comment SEE SCANNED REPORT [facility] Monocyte percentageOrdered B y: America Dudley on 06-13-2024 Monocytes/100 WBC (Bld) 5.3 % 0-10 [facility] NATERAon 06-13-2024 NATURA SEE SCANNED REPORT Normal [facility] Comment on above: Performed By: #### L 501.9520, L506.0400, L100.0100, L506.1000, L503.6030, L503.6550 #### [facility] [address] [place], [address] Neutrophil percentageOrdered By: America Dudley on 06-13-2024 Neutrophils/100 WBC (Bld) 85.9 % High 47-70 [facility] No Panel InformationOrdered By: America Dudley on 06-13-2024 HIV (1&2) Antibody Non-Reactive Nonreactive [facility] Comment on above: Non-ReactiveReactive Repeatedly reactive samples must be confirmed according to CDC recommended confirmatory algorithms. The subresults for either HIVAG or AHIV can be used as an aid in the selection of the confirmation algorithm for reactive samples.Send out specimens with Reactive results to [facility] for confirmation.Order the HIV antibody detection and differentiation: lc#[id number] Nucleated red blood cell per centageOrdered By: America Dudley on 06-13-2024 Nucleated RBC/100 WBC (Bld) [Ratio] 0 % 0-5 [facility] Platelet countOrdered By: Zbigniew Dudley on 06-13-2024 Platelets (Bld) [#/Vol] 215 10*3/uL 150-450 [facility] RBC Auto (Bld) [#/Vol]Ordere d By: America Dudley on 06-13-2024 RBC (Bld) [#/Vol] 4.39 10*6/uL 4.2-5.4 [facility] Rubella immune status determ ination by IgG antibody assayOrdered By: America Dudley on 06-13-2024 Rubella IgG Antibody REAC Nonreactive [facility] Comment on above: Antibody Result: Int erpretationNon-Reactive: Non-ImmuneReactive: ImmuneThe following results were obtained with the [employer] Rubella IgG assay. Results from assays of other manufacturers cannot be used interchangeably. Syphilis Antibodieson 2024 Syphilis Abs Non-Reactive Normal Nonreactive [facility] Comment on above: Performed By: #### L 501.9520, L506.0400, L100.0100, L506.1000, L503.6030, L503.6550 #### [facility] [address] [place], [address] T. pallidum abOrdered By: Zbigniew Dudley on 06-13-2024 Syphilis Total Antibody Non-Reactive Nonreactiv e [facility] T4 Free Directon 06-13-2024 T4 FREE DIRECT 1.90 ng/dL High 0.76-1.46 [facility] Comment on above: Order Comment: TSH R AB [id number] Performed By: #### L 501.9520, L506.0400, L100.0100, L506.1000, L503.6030, L503.6550 #### [facility] [address] [place], [place], [id number] T4 freeOrdered By: America perez on 06-13-2024 Free T4 [Mass/Vol] 1.90 ng/dL High 0.76-1.46 [facility] TSH DL <= 0.005 mIU/L QnOrde red By: America Dudley on 06-13-2024 Thyroid Stimulating Hormone (TSH) 0.025 uIU/mL Low 0.300-4.200 [facility] TSH Qn 0.025 uIU/mL Low 0.300-4.200 [facility] Thyroid Stim Hormone (TSH)on 06-13-2024 TSH 0.025 uIU/mL Low 0.300-4.200 [facility] Comment on above: Performed By: #### L 501.9520, L506.0400, L100.0100, L506.1000, L503.6030, L503.6550 #### [facility] [address] [place], [address] Type AND Screenon 06-13-2024 Ab SCREEN GEL Negative Normal [facility] Comment on above: Order Comment: PN Performed By: #### L 501.9520, L506.0400, L100.0100, L506.1000, L503.6030, L503.6550 #### [facility] [address] [facility] [place], [address] White blood cell (WBC) count Ordered By: America Dudley on 06-13-2024 WBC (Bld) [#/Vol] 14.0 10*3/uL High 4.4-11.0 [facility] Chlamydia/GC DILCIA aptimaon CHLAMY,NUC ACID Negative Normal Negative [facility] Comment on above: Performed By: #### L 501.9520, L506.0400, L100.0100, L506.1000, L503.6030, L503.6550 #### [facility] [address] [place], [place], [address] GC BY NUC ACID Negative Normal Negative [facility] Comment on above: Result Comment: Perf ormed at: =G - [facility] [address] [address] [place], [place] [id number] [employer] Cutting Machine Operator: Keri Santa MD, Phone: [phone] Performed By: #### L 501.9520, L506.0400, L100.0100, L506.1000, L503.6030, L503.6550 #### [facility] [address] [place], [address] Urine Cultureon 05-31-2024 URC Culture exhibits no growth. Normal [facility] Comment on above: Performed By: #### L 501.9520, L506.0400, L100.0100, L506.1000, L503.6030, L503.6550 #### [facility] [address] [place], [address] C. trachomatis rRNA DILCIA+prob e Ql (Unsp spec)Ordered By: America Dudley on 05-30-2024 Chlamydia DNA (DILCIA) Negative Negative [facility] Chlamydia trachomatis rRNA d etection by probe and target amplification methodOrdered By: America Dudley on 05-30-2024 C. trachomatis rRNA DILCIA+probe Ql (Unsp spec) Negative Negative [facility] Neisseria gonorrhoeae nuclei c acid detection by amplified probe techniqueOrdered By: America Dudely on 05-30-2024 N. gonorrhoeae DNA DILCIA+probe Ql (Unsp spec) Negative Negative [facility] Comment on above: Performed at: =G - [facility] [address] [id number] Director: Keri Santa MD, Phone: [phone] Medical Coder Office Visit Reporton 05-30-2024 Medical Coder Office Visit Report [facility] [address], [address] [place] [address] OFFICE VISIT Date of Service: 05/30/24 MR#: [id number] Acct: [id number] Name: VESTA HERNANDEZ Rep #: [id number] : 1995 Provider: FRANDY Peterson ams Age/Sex: 28/F Location: [facility] [place] Status: Signed Intake Vital Signs 04/15/24 09:05 05/30/24 13:01 Height 5 ft 6 in 5 ft 6 in Weight: 163 lb 4 oz BMI 26.3 BP 128/81 H Intake Visit Reasons: NOB LMP 03/24 Chief Complaint: New OB K 9 Police Officer Required: No Is patient in pain?: No Allergies No Known Allergies Allergy (Verified 05/30/24 13:04) Medications ???Medication ???Instructions ???Recorded ???Confirmed ???Type levothyroxine 112 mcg capsule 112 mcg PO QDAY #30 caps 04/15/24 05/30/24 Rx [id number]-wmo-vyjqi 120 mcg-dha 25 tab PO 05/30/24 05/30/24 [...] No current occupational status: unemployed current occupation: [employer] pets and animals: No history of [...] 5-6 times per week duration: 30-45 minutes/day andie/yarsani: None seatbelt use: always do you feel safe at home: Yes 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 Date Name GA/Weeks Outcome Route Bth Weight Infant Gen Labor Lgth Anesthesia Del Locatn Provider FOB 03/23/14 Melvina 40 live - full term 8#1oz Female epidural [place] [facility] Paul 03/03/18 [place] 39 live - full term 8#13oz Male epidural WC Dr. Elio Hilario 10/06/19 [place] 38 live - full term 6#3oz [facility]-Igor Hilario 05/23/21 [place] 38 live - full term 8#5oz Male epidural WC Richie Hilario 10/16/23 D C HPI NOB LMP [...] 05/30/24 -???-???-???-? (more content not included)... Normal [facility] Urine cultureOrdered By: Mahesh Dudley on 05-30-2024 Bacteria identified Cx Nom (U) Culture exhibits no growth. [facility] CNOVon 05-27-2024 CNOV Office Visit ([facility]) ---- VESTA HERNANDEZ ([id number]) 1995 F Date Time Provider Department 05/27/24 4:45 PM SERG GRUBBS [facility] During your visit today, we recorded the following information about you: Temperature Pulse Respiration Blood pressure 97.9 degrees 93/minute 18/minute 104/71 Weight 74.8 kg Serg Grubbs, SENIOR TECHNICAL ANALYST.PATTERN CARRIER 05/27/2024 5:29 PM Signed [facility] [address] [facility] [address] Dept: [phone] Dept Subjective Subjective Vesta David is a 28 year old female who [...] Take 1 tablet by mouth once daily. [id number]-[id number]-i tyler-epa-fish ( MULTI-DHA,WITH VIT K,) 27 mg [...] - AMOXICILLIN 875 MG TABLET Serg Grubbs APRN.BRENNAN Differential Diagnoses - Left dysphagia is more [...] used to dictate this note. Serg Grubbs APRN-OCCUPATIONAL THERAPY TECHNICIAN 05/27/2024 5:11 PM Serg Grubbs APRN.BRENNAN 05/27/2024 5:13 PM Signed [facility] [...] the medicine (more content not included)... Normal [facility] Thyroidon 04-19-2024 Thyroid [facility] Services [address] [place], [place] [id number] Thyroid MR#: [id number] Acct: [id number] Name: VESTA HERNANDEZ Rep #: [id number] : 1995 F 28 From: Adrian Sanz MD PCP: Dr. Mary Nunn MD Status: REG CLI Study: Thyroid Date of Exam: 04/19/24 Exam# [id number] Ordering Dr: Mary Nunn MD PROCEDURE: ULTRASOUND [...] US/Thyroid IMPRESSION: NORMAL THYROID ULTRASOUND Reading Location: [facility] CC: Dr. Mary Nunn MD Personal Lines Underwriter: Signed Normal [facility] 25-BB-Wvaypep DOrdered By: Jeremy Nunn on 04-15-2024 Vitamin D 25-Hydroxy 16.9 ng/mL [facility] Comment on above: Vitamin D 25(OH) Sta tus Range Deficiency <20 ng/mL (50nmol/L) Insufficiency 20 - 30 ng/mL (50 - 75 nmol/L) Sufficiency 30 - 100 ng/mL (75 - 250 nmol/L) Toxicity >100 ng/mL (>250 nmol/L) Absolute lymphocyte countOrd ered By: Mary Nunn on 04-15-2024 Lymphocytes Auto (Unsp spec) [#/Vol] 1.35 10*3/uL 0.83-4.51 [facility] Absolute neutrophil countOrd ered By: Mary Nunn on 04-15-2024 Neutrophils (Bld) [#/Vol] 3.9 10*3/uL 2.0-7.7 [facility] Automated lymphocyte count a s percentage of total leukocytesOrdered By: Mary Nunn on 04-15-2024 Lymphocytes/100 WBC Auto (Unsp spec) 23.0 % 19-41 [facility] Basophil percentageOrdered B y: Mary Nunn on 04-15-2024 Basophils/100 WBC (Bld) 0.5 % 0-1 [facility] CBC W/Diff, Automatedon 03-30 Absolute Lymph 1.35 X10 3/uL Normal 0.83-4.51 [facility] Comment on above: Performed By: #### L 501.9520, L506.0400, L100.0100, L506.1000, L503.6030, L503.6550 #### [facility] [address] [place], [address] Absolute Neut 3.9 X10 3/uL Normal 2.0-7.7 [facility] Comment on above: Performed By: #### L 501.9520, L506.0400, L100.0100, L506.1000, L503.6030, L503.6550 #### [facility] [address] [place], [address] Basophils/100 WBC (Bld) 0.5 % Normal 0-1 [facility] Comment on above: Performed By: #### L 501.9520, L506.0400, L100.0100, L506.1000, L503.6030, L503.6550 #### [facility] [address] [place], [address] Eosinophils/100 WBC (Bld) 1.0 % Normal 0-5 [facility] Comment on above: Performed By: #### L 501.9520, L506.0400, L100.0100, L506.1000, L503.6030, L503.6550 #### [facility] [address] [place], [address] Erythrocyte distribution width (RBC) [Ratio] 12.9 % Normal 11.6-14.6 [facility] Comment on above: Performed By: #### L 501.9520, L506.0400, L100.0100, L506.1000, L503.6030, L503.6550 #### [facility] [address] [place], [address] Hematocrit (Bld) [Volume fraction] 38.7 % Normal 37-47 [facility] Comment on above: Performed By: #### L 501.9520, L506.0400, L100.0100, L506.1000, L503.6030, L503.6550 #### [facility] [address], [address] Hemoglobin (Bld) [Mass/Vol] 12.1 g/dL Normal 12.0-15.0 [facility] Comment on above: Performed By: #### L 501.9520, L506.0400, L100.0100, L506.1000, L503.6030, L503.6550 #### [facility] [address] [place], [address] IG% 0.200 Normal 0.0-0.9 [facility] Comment on above: Result Comment: IG% - Immature Granulocytes (promyelocytes, myelocytes and metamyelocytes) > 1% indicates that a LEFT SHIFT is Present. Performed By: #### L 501.9520, L506.0400, L100.0100, L506.1000, L503.6030, L503.6550 #### [facility] [address] [place], [address] Lymphocytes/100 WBC (Bld) 23.0 % Normal 19-41 [facility] Comment on above: Performed By: #### L 501.9520, L506.0400, L100.0100, L506.1000, L503.6030, L503.6550 #### [facility] [address] [place], [address] MCH (RBC) [Entitic mass] 27.6 pg Normal 27.0-32.0 [facility] Comment on above: Performed By: #### L 501.9520, L506.0400, L100.0100, L506.1000, L503.6030, L503.6550 #### [facility] [address] [place], [address] MCHC (RBC) [Mass/Vol] 31.3 g/dL Low 32-36 [facility] Comment on above: Performed By: #### L 501.9520, L506.0400, L100.0100, L506.1000, L503.6030, L503.6550 #### [facility] [address] [place], [address] MCV (RBC) [Entitic vol] 88.4 fL Normal 81-99 [facility] Comment on above: Performed By: #### L 501.9520, L506.0400, L100.0100, L506.1000, L503.6030, L503.6550 #### [facility] [address] [place], [address] Monocytes/100 WBC (Bld) 9.6 % Normal 0-10 [facility] Comment on above: Performed By: #### L 501.9520, L506.0400, L100.0100, L506.1000, L503.6030, L503.6550 #### [facility] [address] [place], [address] Neutrophils/100 WBC (Bld) 65.7 % Normal 47-70 [facility] Comment on above: Performed By: #### L 501.9520, L506.0400, L100.0100, L506.1000, L503.6030, L503.6550 #### [facility] [address] [place], [address] Nucleated RBC (Bld) [#/Vol] 0 10*3/uL Normal 0-5 [facility] Comment on above: Performed By: #### L 501.9520, L506.0400, L100.0100, L506.1000, L503.6030, L503.6550 #### [facility] [address] [place], [address] Platelet mean volume (Bld) [Entitic vol] 11.5 fL Normal 6.2-12.0 [facility] Comment on above: Performed By: #### L 501.9520, L506.0400, L100.0100, L506.1000, L503.6030, L503.6550 #### [facility] [address] [place], [address] Platelets (Bld) [#/Vol] 198 10*3/uL Normal 150-450 [facility] Comment on above: Performed By: #### L 501.9520, L506.0400, L100.0100, L506.1000, L503.6030, L503.6550 #### [facility] [address] [place], [address] RBC (Bld) [#/Vol] 4.38 10*6/uL Normal 4.2-5.4 [facility] Comment on above: Performed By: #### L 501.9520, L506.0400, L100.0100, L506.1000, L503.6030, L503.6550 #### [facility] [address] [place], [address] RDW SD 41.9 fl Normal 35.1-43.9 [facility] Comment on above: Performed By: #### L 501.9520, L506.0400, L100.0100, L506.1000, L503.6030, L503.6550 #### [facility] [address] [place], [address] WBC (Bld) [#/Vol] 5.9 10*3/uL Normal 4.4-11.0 [place] [facility] Comment on above: Performed By: #### L 501.9520, L506.0400, L100.0100, L506.1000, L503.6030, L503.6550 #### [facility] [address] [place], [address] Direct serum free thyroxine (FT4) measurementOrdered By: Mary Nunn on 04-15-2024 Free T4 [Mass/Vol] 0.92 ng/dL 0.76-1.46 [facility] Eosinophil percentageOrdered By: Mary Nunn on 04-15-2024 Eosinophils/100 WBC (Bld) 1.0 % 0-5 [facility] Erythrocyte distribution wid th (RBC) [Ratio]Ordered By: Mary Nunn on 04-15-2024 Erythrocyte distribution width (RBC) [Entitic vol] 41.9 fL 35.1-43.9 [facility] Erythrocyte distribution wid th ratioOrdered By: Mary Nunn on 04-15-2024 Erythrocyte distribution width (RBC) [Ratio] 12.9 % 11.6-14.6 [facility] Erythrocyte distribution wid th standard deviationOrdered By: Mary Nunn on 04-15-2024 Erythrocyte distribution width (RBC) [Ratio] 41.9 fl 35.1-43.9 [facility] Ferritinon 04-15-2024 Ferritin [Mass/Vol] 5 ng/mL Low 8-252 [facility] Comment on above: Performed By: #### L 501.9520, L506.0400, L100.0100, L506.1000, L503.6030, L503.6550 #### [facility] [address] [place], [address] Ferritin measurementOrdered By: Mary Nunn on 04-15-2024 Ferritin [Mass/Vol] 5 ng/mL Low 8-252 [facility] Hematocrit Auto (Bld) [Volum e fraction]Ordered By: Mary Nunn on 04-15-2024 Hematocrit (Bld) [Volume fraction] 38.7 % 37-47 [facility] Hemoglobin measurementOrdere d By: Mary Nunn on 04-15-2024 Hemoglobin (Bld) [Mass/Vol] 12.1 g/dL 12.0-15.0 [facility] Immature granulocytes/100 WB C Auto (Bld)Ordered By: Mary Nunn on 04-15-2024 Immature granulocytes/100 WBC (Bld) 0.200 % 0.0-0.9 [facility] Comment on above: IG% - Immature Granu locytes (promyelocytes, myelocytes and metamyelocytes) > 1% indicates that a LEFT SHIFT is Present. Iron (Unsp spec) [Mass/Mass] Ordered By: Mary Nunn on 04-15-2024 Iron [Mass/Vol] 72 ug/dL 50-170 [facility] Iron measurement (mass/mass) Ordered By: Mary Nunn on 04-15-2024 Iron (Unsp spec) [Mass/Mass] 72 ug/dL 50-170 [facility] Iron saturation [Mass fracti on]Ordered By: Mary Nunn on 04-15-2024 Iron Saturation 17.2 % 15.0-55.0 [facility] Iron+Iron Binding Capacityon 04-15-2024 Iron [Mass/Vol] 72 ug/dL Normal 50-170 [facility] Comment on above: Performed By: #### L 501.9520, L506.0400, L100.0100, L506.1000, L503.6030, L503.6550 #### [facility] [address] [facility] [place], [place], [id number] IRON SATURATION 17.2 Normal 15.0-55.0 [facility] Comment on above: Performed By: #### L 501.9520, L506.0400, L100.0100, L506.1000, L503.6030, L503.6550 #### [facility] [address] [place], [place], [id number] TIBC 419 ug/dL Normal 250-450 [facility] Comment on above: Performed By: #### L 501.9520, L506.0400, L100.0100, L506.1000, L503.6008, L503.6550 #### [facility] [place], [address] Lymphocytes Auto (Unsp spec) [#/Vol]Ordered By: Mary Nunn on 04-15-2024 Lymphocytes (Bld) [#/Vol] 1.35 10*3/uL 0.83-4.5 1 [facility] Lymphocytes/100 WBC Auto (Un sp spec)Ordered By: Mary Nnun on 04-15-2024 Lymphocytes/100 WBC (Bld) 23.0 % 19-41 [facility] MCV (mean corpuscular volume ) determinationOrdered By: Mary Nunn on 04-15-2024 MCV (RBC) [Entitic vol] 88.4 fL 81-99 [facility] Mean corpuscular hemoglobin (MCH) determinationOrdered By: Mary Nunn on 04-15-2024 MCH (RBC) [Entitic mass] 27.6 pg 27.0-32.0 [facility] Mean corpuscular hemoglobin concentration (MCHC) determinationOrdered By: Mary Nunn on 04-15-2024 MCHC (RBC) [Mass/Vol] 31.3 g/dL Low 32-36 [facility] Mean platelet volume determi nationOrdered By: Mary Nunn on 04-15-2024 Platelet mean volume (Bld) [Entitic vol] 11.5 fL 6.2-12.0 [facility] Monocyte percentageOrdered B y: Mary Nunn on 04-15-2024 Monocytes/100 WBC (Bld) 9.6 % 0-10 [facility] Neutrophil percentageOrdered By: Mary Nunn on 04-15-2024 Neutrophils/100 WBC (Bld) 65.7 % 47-70 [facility] Nucleated red blood cell per centageOrdered By: Mary Nunn on 04-15-2024 Nucleated RBC/100 WBC (Bld) [Ratio] 0 % 0-5 [facility] Platelet countOrdered By: Ubaldo ish Nunn on 04-15-2024 Platelets (Bld) [#/Vol] 198 10*3/uL 150-450 [facility] RBC Auto (Bld) [#/Vol]Ordere d By: Mary Nunn on 04-15-2024 RBC (Bld) [#/Vol] 4.38 10*6/uL 4.2-5.4 [facility] Serum or plasma iron saturat ion measurement (mass fraction)Ordered By: Mary Nunn on 04-15-2024 Iron saturation [Mass fraction] 17.2 % 15.0-55.0 [facility] Serum or plasma thyroid stim ulating hormone (TSH) measurement (units/volume)Ordered By: Mary Nunn on 04-15-2024 TSH Qn 9.600 uIU/mL High 0.358-3.740 [facility] T4 Free Directon 04-15-2024 T4 FREE DIRECT 0.92 ng/dL Normal 0.76-1.46 [facility] Comment on above: Performed By: #### L 501.9520, L506.0400, L100.0100, L506.1000, L503.6030, L503.6550 #### [facility] [address] [place], [address] TIBCOrdered By: Mary rock on 04-15-2024 Total Iron Binding Capacity 419 ug/dL 250-450 [facility] TSH QnOrdered By: Mary partida on 04-15-2024 Thyroid Stimulating Hormone (TSH) 9.600 uIU/mL High 0.358-3.740 [facility] Thyroid Stim Hormone (TSH)on 04-15-2024 TSH 9.600 uIU/mL High 0.358-3.740 [facility] Comment on above: Performed By: #### L 501.9520, L506.0400, L100.0100, L506.1000, L503.6030, L503.6550 #### [facility] [address] [place], [address] Vitamin D,25 Hydroxyon 04-15 Vitamin D 25-OH 16.9 ng/mL Normal [facility] Comment on above: Result Comment: Radha min D 25(OH) Status Range Deficiency <20 ng/mL (50nmol/L) Insufficiency 20 - 30 ng/mL (50 - 75 nmol/L) Sufficiency 30 - 100 ng/mL (75 - 250 nmol/L) Toxicity >100 ng/mL (>250 nmol/L) Performed By: #### L 501.9520, L506.0400, L100.0100, L506.1000, L503.6030, L503.6550 #### [facility] [address] [place], [address] White blood cell (WBC) count Ordered By: Mary Nunn on 04-15-2024 WBC (Bld) [#/Vol] 5.9 10*3/uL 4.4-11.0 [facility] Internal Medicine Office Vis iton 04-11-2024 Internal Medicine Office Visit [facility] [address] [place] [address] [place] [address] OFFICE VISIT Date of Service: 04/15/24 MR#: [id number] Acct: [id number] Name: VESTA HERNANDEZ Rep #: [id number] : 1995 Provider: Dr. Mary rock MD Age/Sex: 28/F Location: 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 She was seeing a provider in [place] (unknown name) and last saw them a [...] at rest (more content not included)... Normal [facility] Abdomen/Pelvis without Conto n 03-29-2024 Abdomen/Pelvis without Cont [facility] Services [address] [place] [address] Abdomen/Pelvis without Cont MR#: [id number] Acct: [id number] Name: VESTA HERNANDEZ Rep #: [id number] : 1995 F 28 From: Adrian Sanz MD PCP: Care Physician,No Primary Status: REG ER Study: Abdomen/Pelvis without Cont Date of Exam: 03/01 03/23 Exam# [id number] Ordering Dr: Chas Ernst DO PROCEDURE: ABDOMEN/PELVIS [...] technique). Reading Location: [facility] CC: Dr. Chas Ernst, DO; No Primary Care Physician Personal Lines Underwriter: Signed Normal [facility] Absolute lymphocyte countOrd ered By: Chas Ernst on 03-29-2024 Lymphocytes Auto (Unsp spec) [#/Vol] 1.82 10*3/uL 0.83-4.51 [facility] Absolute neutrophil countOrd ered By: Chas Ernst on 03-29-2024 Neutrophils (Bld) [#/Vol] 3.9 10*3/uL 2.0-7.7 [facility] Albumin to globulin ratioOrd ered By: Chas Ernst on 03-29-2024 Albumin/Globulin [Mass ratio] 1.3 {ratio} 0.9-2.4 [facility] Automated lymphocyte count a s percentage of total leukocytesOrdered By: Chas Ernst on 03-29-2024 Lymphocytes/100 WBC Auto (Unsp spec) 28.5 % 19-41 [facility] Bacteria LM.HPF (Urine sed) [#/Area]Ordered By: Chas Ernst on 03-29-2024 Urine Bacteria RARE /hpf None Seen [facility] Basophil percentageOrdered B y: Chas Ernst on 03-29-2024 Basophils/100 WBC (Bld) 0.6 % 0-1 [facility] Beta HCG ( test) Ql Ordered By: Chas Ernst on 03-29-2024 Serum Test, Qualitative Negative [facility] Bilirubin Test strip Ql (U)O rdered By: Chas Ernst on 03-29-2024 Bilirubin Ql (U) Negative Negative [facility] Bilirubin, totalOrdered By: Chas Ernst on 03-29-2024 Bilirubin [Mass/Vol] 0.40 mg/dL 0.20-1.00 [facility] Comment on above: For patients on eltr ombopag therapy, use of Dimension [place] TBIL is not recommended. Blood urea nitrogen (BUN)/cr eatinine ratioOrdered By: Chas Ernst on 03-29-2024 Urea nitrogen/Creatinine [Mass ratio] 25.5 mg/mg High 10-20 [facility] CBC W/Diff, Automatedon 03-01 Absolute Lymph 1.82 X10 3/uL Normal 0.83-4.51 [facility] Comment on above: Performed By: #### L 100.0100, L501.2450, L700.6800, L500.4050 ####[facility] [address] [place], [address] Absolute Neut 3.9 X10 3/uL Normal 2.0-7.7 [facility] Comment on above: Performed By: #### L 100.0100, L501.2450, L700.6800, L500.4050 ####[facility] [address] [place], [address] Basophils/100 WBC (Bld) 0.6 % Normal 0-1 [facility] Comment on above: Performed By: #### L 100.0100, L501.2450, L700.6800, L500.4050 ####[facility] [address] [place], [address] Eosinophils/100 WBC (Bld) 1.1 % Normal 0-5 [facility] Comment on above: Performed By: #### L 100.0100, L501.2450, L700.6800, L500.4050 ####[facility] [address] [place], [address] Erythrocyte distribution width (RBC) [Ratio] 13.1 % Normal 11.6-14.6 [facility] Comment on above: Performed By: #### L 100.0100, L501.2450, L700.6800, L500.4050 ####[facility] [address] [place], [address] Hematocrit (Bld) [Volume fraction] 35.7 % Low 37-47 [facility] Comment on above: Performed By: #### L 100.0100, L501.2450, L700.6800, L500.4050 ####[facility] [address] [place], [address] Hemoglobin (Bld) [Mass/Vol] 11.9 g/dL Low 12.0-15.0 [facility] Comment on above: Performed By: #### L 100.0100, L501.2450, L700.6800, L500.4050 ####[facility] [address] [place], [address] IG% 0.500 Normal 0.0-0.9 [facility] Comment on above: Result Comment: IG% - Immature Granulocytes (promyelocytes, myelocytes and metamyelocytes) > 1% indicates that a LEFT SHIFT is Present. Performed By: #### L 100.0100, L501.2450, L700.6800, L500.4050 ####[facility] [address] [place], [address] Lymphocytes/100 WBC (Bld) 28.5 % Normal 19-41 [facility] Comment on above: Performed By: #### L 100.0100, L501.2450, L700.6800, L500.4050 ####[facility] [address] [place], [address] MCH (RBC) [Entitic mass] 28.7 pg Normal 27.0-32.0 [facility] Comment on above: Performed By: #### L 100.0100, L501.2450, L700.6800, L500.4050 ####[facility] [address] [place], [address] MCHC (RBC) [Mass/Vol] 33.3 g/dL Normal 32-36 [facility] Comment on above: Performed By: #### L 100.0100, L501.2450, L700.6800, L500.4050 ####[facility] [address] [place], [address] MCV (RBC) [Entitic vol] 86.0 fL Normal 81-99 [facility] Comment on above: Performed By: #### L 100.0100, L501.2450, L700.6800, L500.4050 ####[facility] [address] [place], [address] Monocytes/100 WBC (Bld) 7.7 % Normal 0-10 [facility] Comment on above: Performed By: #### L 100.0100, L501.2450, L700.6800, L500.4050 ####[facility] [address] [place], [address] Neutrophils/100 WBC (Bld) 61.6 % Normal 47-70 [facility] Comment on above: Performed By: #### L 100.0100, L501.2450, L700.6800, L500.4050 ####[facility] [address] [place], [address] Nucleated RBC (Bld) [#/Vol] 0 10*3/uL Normal 0-5 [facility] Comment on above: Performed By: #### L 100.0100, L501.2450, L700.6800, L500.4050 ####[facility] [address] [place], [address] Platelet mean volume (Bld) [Entitic vol] 10.8 fL Normal 6.2-12.0 [facility] Comment on above: Performed By: #### L 100.0100, L501.2450, L700.6800, L500.4050 ####[facility] [address] [place], [address] Platelets (Bld) [#/Vol] 208 10*3/uL Normal 150-450 [facility] Comment on above: Performed By: #### L 100.0100, L501.2450, L700.6800, L500.4050 ####[facility] [address] [place], [address] RBC (Bld) [#/Vol] 4.15 10*6/uL Low 4.2-5.4 [facility] Comment on above: Performed By: #### L 100.0100, L501.2450, L700.6800, L500.4050 ####[facility] [address] [place], [address] RDW SD 40.8 fl Normal 35.1-43.9 [facility] Comment on above: Performed By: #### L 100.0100, L501.2450, L700.6800, L500.4050 ####[facility] [address] [place], [address] WBC (Bld) [#/Vol] 6.4 10*3/uL Normal 4.4-11.0 [facility] Comment on above: Performed By: #### L 100.0100, L501.2450, L700.6800, L500.4050 ####[facility] [address] [place], [address] Carbon dioxide measurementOr dered By: Chas Ernst on 03-29-2024 CO2 [Moles/Vol] 26.0 mmol/L 21.0-32.0 [facility] Chloride measurementOrdered By: Chas Ernst on 03-29-2024 Chloride [Moles/Vol] 105 mmol/L 98-107 [facility] Comprehensive Metabolic Prof ilon 03-29-2024 Albumin [Mass/Vol] 4.2 g/dL Normal 3.2-5.0 [facility] Comment on above: Performed By: #### L 100.0100, L501.2450, L700.6800, L500.4050 ####[facility] [address] [place], [address] Albumin/Globulin [Mass ratio] 1.3 {ratio} Normal 0.9-2.4 [facility] Comment on above: Performed By: #### L 100.0100, L501.2450, L700.6800, L500.4050 ####[facility] [address] [place], [address] ALK P 41 U/L Low 45-117 [facility] Comment on above: Performed By: #### L 100.0100, L501.2450, L700.6800, L500.4050 ####[facility] [address] [place], [address] ALT [Catalytic activity/Vol] 17 U/L Normal 13-56 [facility] Comment on above: Performed By: #### L 100.0100, L501.2450, L700.6800, L500.4050 ####[facility] [address] [place], [address] AST [Catalytic activity/Vol] 14 U/L Low 15-37 [facility] Comment on above: Performed By: #### L 100.0100, L501.2450, L700.6800, L500.4050 ####[facility] [address] [place], [address] Bilirubin [Mass/Vol] 0.40 mg/dL Normal 0.20-1.00 [facility] Comment on above: Result Comment: For patients on eltrombopag therapy, use of Dimension [place] TBIL is not recommended. Performed By: #### L 100.0100, L501.2450, L700.6800, L500.4050 ####[facility] [address] [place], [address] BUN/CRE 25.5 RATIO High 10-20 [facility] Comment on above: Performed By: #### L 100.0100, L501.2450, L700.6800, L500.4050 ####[facility] [address] [place], [address] CA,Total 8.7 mg/dL Normal 8.5-10.1 [facility] Comment on above: Performed By: #### L 100.0100, L501.2450, L700.6800, L500.4050 ####[facility] [address] [place], [address] Chloride [Moles/Vol] 105 mmol/L Normal 98-107 [facility] Comment on above: Performed By: #### L 100.0100, L501.2450, L700.6800, L500.4050 ####[facility] [address] [place], [address] CO2 [Moles/Vol] 26.0 mmol/L Normal 21.0-32.0 [facility] Comment on above: Performed By: #### L 100.0100, L501.2450, L700.6800, L500.4050 ####[facility] [address] [place], [address] Creatinine [Mass/Vol] 0.78 mg/dL Normal 0.55-1.02 [facility] Comment on above: Result Comment: The validity of the calculated GFR GFRAA in patients over 70 years has not been determined. Clinical correlation is essential. Performed By: #### L 100.0100, L501.2450, L700.6800, L500.4050 ####[facility] [address] [place], [address] ECRCL 109.44 ml/min Normal [facility] Comment on above: Performed By: #### L 100.0100, L501.2450, L700.6800, L500.4050 ####[facility] [address] [place], [address] EST GFR - AA 111 mL/min Normal >60 [facility] Comment on above: Result Comment: Afri can Syrian GFR Calc Performed By: #### L 100.0100, L501.2450, L700.6800, L500.4050 ####[facility] [address] [place], [address] GAP 6 Normal 5-15 [facility] Comment on above: Performed By: #### L 100.0100, L501.2450, L700.6800, L500.4050 ####[facility] [address] [place], [address] GFR/1.73 sq M.predicted among non-blacks MDRD (S/P/Bld) [Vol rate/Area] 92 mL/min/{1.73_m2} Normal >60 [facility] Comment on above: Result Comment: Non- GFR Calc Performed By: #### L 100.0100, L501.2450, L700.6800, L500.4050 ####[facility] [address] [place], [address] Globulin (S) [Mass/Vol] 3.2 g/dL Normal 2.2-4.2 [facility] Comment on above: Performed By: #### L 100.0100, L501.2450, L700.6800, L500.4050 ####[facility] [address] [place], [address] Glucose [Mass/Vol] 104 mg/dL Normal 74-106 [facility] Comment on above: Result Comment: Fast ing Glucose result from 100 to 125 mg/dL suggests IMPAIRED HOMEOSTASIS per A.D.A. criteria. Performed By: #### L 100.0100, L501.2450, L700.6800, L500.4050 ####[facility] [address] [place], [address] Potassium [Moles/Vol] 4.0 mmol/L Normal 3.5-5.1 [facility] Comment on above: Performed By: #### L 100.0100, L501.2450, L700.6800, L500.4050 ####[facility] [address] [place], [address] Sodium [Moles/Vol] 137 mmol/L Normal 136-145 [facility] Comment on above: Performed By: #### L 100.0100, L501.2450, L700.6800, L500.4050 ####[facility] [address] [place], [address] T PROT 7.4 g/dL Normal 6.4-8.2 [facility] Comment on above: Performed By: #### L 100.0100, L501.2450, L700.6800, L500.4050 ####[facility] [address] [place], [address] Urea nitrogen [Mass/Vol] 20 mg/dL High - [facility] Comment on above: Performed By: #### L 100.0100, L501.2450, L700.6800, L500.4050 ####[facility] [address] [place], [address] Emergency Department Summary on 03-29-2024 Emergency Department Summary [facility] Medical Records Department [address] [facility] [place] [address] Emergency Department Summary 03/29/24 MR#: [id number] Acct: [id number] Name: VESTA HERNANDEZ Rep #: [id number] : 1995 28 From: Chas Contreras PCP: [...] abdominal surgeries. No pain down the legs. [facility] Medical History Kidney stone Wears glasses Wears [...] 4 current occupational status: unemployed current occupation: [employer] pets and animals: No history of [...] 5-6 times per week duration: 30-45 minutes/day andie/yarsani: None seatbelt use: always do you feel safe at home: Yes additional 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: [employer]otorcycle [employer] ROS ROS ED [...] no ecchy (more content not included)... Normal [facility] Eosinophil percentageOrdered By: Chas Ernst on 03-29-2024 Eosinophils/100 WBC (Bld) 1.1 % 0-5 [facility] Epithelial cells.squamous LM Ql (Urine sed)Ordered By: Chas Ernst on 03-29-2024 Epithelial cells.squamous LM.HPF (Urine sed) [#/Area] 0 /[HPF] 5-10 [facility] Erythrocyte distribution wid th (RBC) [Ratio]Ordered By: Chas Ernst on 03-29-2024 Erythrocyte distribution width (RBC) [Entitic vol] 40.8 fL 35.1-43.9 [facility] Erythrocyte distribution wid th ratioOrdered By: Chas Ernst on 03-29-2024 Erythrocyte distribution width (RBC) [Ratio] 13.1 % 11.6-14.6 [facility] Erythrocyte distribution wid th standard deviationOrdered By: Chas Ernst on 03-29-2024 Erythrocyte distribution width (RBC) [Ratio] 40.8 fl 35.1-43.9 [facility] Estimated glomerular filtrat ion rate (GFR) AmericanOrdered By: Chas Ernst on 03-29-2024 Estimated GFR (MDRD) Amer 111 mL/min >60 [facility] Comment on above: GFR Calc Estimation of creatinine oalf aranceOrdered By: Chas Ernst on 03-29-2024 Estimated Creatinine Clearance Calc 109.44 ml/min [facility] Glomerular filtration rate ( GFR) estimationOrdered By: Chas Ernst on 03-29-2024 Estimated GFR (MDRD) Non-Af Amer 92 mL/min >60 [facility] Comment on above: Non- GFR Calc GFR/1.73 sq M.predicted among non-blacks MDRD (S/P/Bld) [Vol rate/Area] 92 mL/min/{1.73_m2} >60 [facility] Comment on above: Non- GFR Calc Glucose Ql (U)Ordered By: Rocky Ernst on 03-29-2024 Urine Glucose (UA) Normal mg/dl Normal [facility] Glucose measurementOrdered B y: Chas Ernst on 03-29-2024 Glucose [Mass/Vol] 104 mg/dL 74-106 [facility] Comment on above: Fasting Glucose resu lt from 100 to 125 mg/dL suggests IMPAIRED HOMEOSTASIS per A.D.A. criteria. Hematocrit Auto (Bld) [Volum e fraction]Ordered By: Chas Ernst on 03-29-2024 Hematocrit (Bld) [Volume fraction] 35.7 % Low 37-47 [facility] Hemoglobin measurementOrdere d By: Chas Ernst on 03-29-2024 Hemoglobin (Bld) [Mass/Vol] 11.9 g/dL Low 12.0-15.0 [facility] Immature granulocytes/100 WB C Auto (Bld)Ordered By: Chas Ernst on 03-29-2024 Immature granulocytes/100 WBC (Bld) 0.500 % 0.0-0.9 [facility] Comment on above: IG% - Immature Granu locytes (promyelocytes, myelocytes and metamyelocytes) > 1% indicates that a LEFT SHIFT is Present. Ketones Test strip Ql (U)Ord ered By: Chas Ernst on 03-29-2024 Ketones Ql (U) Negative Negative [facility] - Chemistry and C hemistry - challengeOrdered By: Chas Ernst on 03-29-2024 AST [Catalytic activity/Vol] 14 U/L Low 15-37 [facility] Lipaseon 03-29-2024 Lipase [Catalytic activity/Vol] 42 U/L Normal 13-75 [facility] Comment on above: Result Comment: Jordy cowan note: LIPASE revised reference range effective 22. New Lipase methodology. Expected to produce lower values than the previous assay method. NEW Reference Range: 13 - 75 U/L Performed By: #### L 100.0100, L501.2450, L700.6800, L500.4050 ####[facility] [address] [place], [address] Lipase measurementOrdered By : Chas Ernst on 03-29-2024 Lipase [Catalytic activity/Vol] 42 U/L 13-75 [facility] Comment on above: Please note:LIPASE r evised reference range effective 22. New Lipase methodology. Expected to produce lower values than the previous assay method. NEW Reference Range: 13 - 75 U/L Lymphocytes Auto (Unsp spec) [#/Vol]Ordered By: Chas Ernst on 03-29-2024 Lymphocytes (Bld) [#/Vol] 1.82 10*3/uL 0.83-4.5 1 [facility] Lymphocytes/100 WBC Auto (Un sp spec)Ordered By: Chas Ernst on 03-29-2024 Lymphocytes/100 WBC (Bld) 28.5 % 19-41 [facility] MCV (mean corpuscular volume ) determinationOrdered By: Chas Ernst on 03-29-2024 MCV (RBC) [Entitic vol] 86.0 fL 81-99 [facility] Mean corpuscular hemoglobin (MCH) determinationOrdered By: Chas Ernst on 03-29-2024 MCH (RBC) [Entitic mass] 28.7 pg 27.0-32.0 [facility] Mean corpuscular hemoglobin concentration (MCHC) determinationOrdered By: Chas Ernst on 03-29-2024 MCHC (RBC) [Mass/Vol] 33.3 g/dL 32-36 [facility] Mean platelet volume determi nationOrdered By: Chas Ernst on 03-29-2024 Platelet mean volume (Bld) [Entitic vol] 10.8 fL 6.2-12.0 [facility] Microscopic analysis of urin e for red blood cells (RBC)Ordered By: Chas Ernst on 03-29-2024 Microscopic analysis of urine for red blood cells (RBC) 0 SEEN /hpf 0-5 [facility] Urine RBC 0 SEEN /hpf 0-5 [facility] Monocyte percentageOrdered B y: Chas Ernst on 03-29-2024 Monocytes/100 WBC (Bld) 7.7 % 0-10 [facility] Mucus LM Ql (Urine sed)Order ed By: Chas Ernst on 03-29-2024 Mucus Ql (Urine sed) 1+ /hpf [facility] Neutrophil percentageOrdered By: Chas Ernst on 03-29-2024 Neutrophils/100 WBC (Bld) 61.6 % 47-70 [facility] Nitrite Test strip Ql (U)Ord ered By: Chas Ernst on 03-29-2024 Nitrite Ql (U) Negative Negative [facility] Nucleated red blood cell per centageOrdered By: Chas Ernst on 03-29-2024 Nucleated RBC/100 WBC (Bld) [Ratio] 0 % 0-5 [facility] Platelet countOrdered By: Rocky Ernst on 03-29-2024 Platelets (Bld) [#/Vol] 208 10*3/uL 150-450 [facility] Potassium measurementOrdered By: Chas Ernst on 03-29-2024 Potassium [Moles/Vol] 4.0 mmol/L 3.5-5.1 [facility] ,Serum,hCG Quali.on 03-29-2024 HCG, SERUM QUAL Negative Normal [facility] Comment on above: Performed By: #### L 100.0100, L501.2450, L700.6800, L500.4050 ####[facility] [id number] [place], [address] Protein Test strip Ql (U)Ord ered By: Chas Ernst on 03-29-2024 Protein Ql (U) Negative Negative [facility] RBC Auto (Bld) [#/Vol]Ordere d By: Chas Ernst on 03-29-2024 RBC (Bld) [#/Vol] 4.15 10*6/uL Low 4.2-5.4 [facility] Serum anion gap measurementO rdered By: Chas Ernst on 03-29-2024 Anion gap [Moles/Vol] 6 mmol/L 5-15 [facility] Serum beta-hCG test, qualita tiveOrdered By: Chas Ernst on 03-29-2024 Beta HCG ( test) Ql Negative [facility] Serum globulin measurementOr dered By: Chas Ernst on 03-29-2024 Globulin (S) [Mass/Vol] 3.2 g/dL 2.2-4.2 [facility] Serum or plasma alanine contreras otransferase (ALT) measurementOrdered By: Chas Ernst on 03-29-2024 ALT [Catalytic activity/Vol] 17 U/L 13-56 [facility] Serum or plasma albumin elle urement (mass/volume)Ordered By: Chas Ernst on 03-29-2024 Albumin [Mass/Vol] 4.2 g/dL 3.2-5.0 [facility] Serum or plasma alkaline brennan sphatase measurementOrdered By: Chas Ernst on 03-29-2024 ALP [Catalytic activity/Vol] 41 U/L Low 45-117 [facility] Serum or plasma calcium elle urement (mass/volume)Ordered By: Chas Ernst on 03-29-2024 Calcium [Mass/Vol] 8.7 mg/dL 8.5-10.1 [facility] Serum or plasma creatinine m easurement (mass/volume)Ordered By: Chas Ernst on 03-29-2024 Creatinine [Mass/Vol] 0.78 mg/dL 0.55-1.02 [facility] Comment on above: The validity of the calculated GFR & GFRAA in patients over 70 years has not been determined. Clinical correlation is essential. Serum or plasma urea nitroge n measurement (mass/volume)Ordered By: Chas Ernst on 03-29-2024 Urea nitrogen [Mass/Vol] 20 mg/dL High 7-18 [facility] Sodium levelOrdered By: Chas Ernst on 03-29-2024 Sodium [Moles/Vol] 137 mmol/L 136-145 [facility] Squamous epithelial cells de tection in urine sediment by light microscopyOrdered By: Chas Ernst on 03-29-2024 Epithelial cells.squamous LM Ql (Urine sed) 0-5 SEEN /hpf -10 [facility] Total proteinOrdered By: Samir Ernst on 03-29-2024 Protein [Mass/Vol] 7.4 g/dL 6.4-8.2 [facility] Urinalysis, Completeon 03-29 BACTERIA RARE Normal None Seen [facility] Comment on above: Order Comment: CLEAN CATCH Performed By: #### L [id number], L506.0400, L100.0100, L506.1000, L503.6030, L503.6550 #### [facility] [address] [place], [address] EPI,SQUAMOUS 0-5 SEEN Normal -10 [facility] Comment on above: Order Comment: CLEAN CATCH Performed By: #### L [id number], L506.0400, L100.0100, L506.1000, L503.6030, L503.6550 #### [facility] [address] [place], [address] Mucus Ql (Urine sed) 1+ /hpf Normal [facility] Comment on above: Order Comment: CLEAN CATCH Performed By: #### L [id number], L506.0400, L100.0100, L506.1000, L503.6030, L503.6550 #### [facility] [address] [place], [address] WBC 0-5 SEEN Normal 0-5 [facility] Comment on above: Order Comment: CLEAN CATCH Performed By: #### L [id number], L506.0400, L100.0100, L506.1000, L503.6030, L503.6550 #### [facility] [address] [place], [address] BILIRUBIN URINE Negative Normal Negative [facility] Comment on above: Order Comment: CLEAN CATCH Performed By: #### L [id number], L506.0400, L100.0100, L506.1000, L503.6030, L503.6550 #### [facility] [address] [place], [address] Clarity (U) Clear Normal Clear [facility] Comment on above: Order Comment: CLEAN CATCH Performed By: #### L [id number], L506.0400, L100.0100, L506.1000, L503.6030, L503.6550 #### [facility] [address] [place], [address] Color (U) Straw Normal Yellow [facility] Comment on above: Order Comment: CLEAN CATCH Performed By: #### L [id number], L506.0400, L100.0100, L506.1000, L503.6030, L503.6550 #### [facility] [address] [place], [address] GLUCOSE, UR Normal Normal Normal [facility] Comment on above: Order Comment: CLEAN CATCH Performed By: #### L [id number], L506.0400, L100.0100, L506.1000, L503.6030, L503.6550 #### [facility] [address] [place], [address] KETONE UR Negative Normal Negative [facility] Comment on above: Order Comment: CLEAN CATCH Performed By: #### L [id number], L506.0400, L100.0100, L506.1000, L503.6030, L503.6550 #### [facility] [address] [place], [address] LEUK ESTERASE Negative Normal Negative [facility] Comment on above: Order Comment: CLEAN CATCH Performed By: #### L [id number], L506.0400, L100.0100, L506.1000, L503.6030, L503.6550 #### [facility] [address] [place], [address] Nitrite Ql (U) Negative Normal Negative [facility] Comment on above: Order Comment: CLEAN CATCH Performed By: #### L [id number], L506.0400, L100.0100, L506.1000, L503.6030, L503.6550 #### [facility] [address] [place], [address] OCCULT BLOOD-UR 25 /ul Abnormal Negative [facility] Comment on above: Order Comment: CLEAN CATCH Performed By: #### L [id number], L506.0400, L100.0100, L506.1000, L503.6030, L503.6550 #### [facility] [address] [place], [address] pH UR 6.0 Normal 5.0 - 8.0 [facility] Comment on above: Order Comment: CLEAN CATCH Performed By: #### L [id number], L506.0400, L100.0100, L506.1000, L503.6030, L503.6550 #### [facility] [address] [place], [address] PROT DIPSTX Negative Normal Negative [facility] Comment on above: Order Comment: CLEAN CATCH Performed By: #### L [id number], L506.0400, L100.0100, L506.1000, L503.6030, L503.6550 #### [facility] [address] [place], [address] SP.GR. DIPSTX 1.015 Normal 1.002-1.030 [facility] Comment on above: Order Comment: CLEAN CATCH Performed By: #### L [id number], L506.0400, L100.0100, L506.1000, L503.6030, L503.6550 #### [facility] [address] [place], [address] UROBILI Normal Normal Normal [facility] Comment on above: Order Comment: CLEAN CATCH Performed By: #### L [id number], L506.0400, L100.0100, L506.1000, L503.6030, L503.6550 #### [facility] [address] [place], [address] RBC 0 SEEN Normal 0-5 [facility] Comment on above: Order Comment: CLEAN CATCH Performed By: #### L [id number], L506.0400, L100.0100, L506.1000, L503.6030, L503.6550 #### [facility] [address] [place], [address] Urine blood detectionOrdered By: Chas Ernst on 03-29-2024 Urine Occult Blood 25 /ul High Negative [facility] Urine clarityOrdered By: Samir Ernst on 03-29-2024 Clarity (U) Clear Clear [facility] Urine color determinationOrd ered By: Chas Ernst on 03-29-2024 Color (U) Straw Yellow [facility] Urine glucose detectionOrder ed By: Chas Ernst on 03-29-2024 Glucose Ql (U) Normal mg/dl Normal [facility] Urine leukocyte esterase det ection by dipstickOrdered By: Chas Ernst on 03-29-2024 Leukocyte esterase Test strip Ql (U) Negative Negative [facility] Urine pHOrdered By: Chas Ernst on 03-29-2024 pH (U) 6.0 [pH] 5.0 - 8.0 [facility] Urine sediment bacteria coun t by microscopy (number/high power field)Ordered By: Chas Ernst on 03-29-2024 Bacteria LM.HPF (Urine sed) [#/Area] RARE /hpf None Seen [facility] Urine specific gravity measu rementOrdered By: Chas Ernst on 03-29-2024 Specific gravity (U) [Rel density] 1.015 1.002-1.030 [facility] Urine urobilinogen measureme ntOrdered By: Chas Ernst on 03-29-2024 Urobilinogen Ql (U) Normal mg/dl Normal [facility] Urobilinogen Ql (U)Ordered B y: Chas Ernst on 03-29-2024 Urine Urobilinogen Normal mg/dl Normal [facility] White blood cell (WBC) count Ordered By: Chas Ernst on 03-29-2024 WBC (Bld) [#/Vol] 6.4 10*3/uL 4.4-11.0 [facility] White blood cell countOrdere d By: Chas Ernst on 03-29-2024 Urine WBC 0-5 SEEN /hpf 0-5 [facility] White blood cell count 0-5 SEEN /hpf 0-5 [facility] Direct serum free thyroxine (FT4) measurementOrdered By: Vera Love on 02-09-2024 Free T4 [Mass/Vol] 0.90 ng/dL 0.76-1.46 [facility] T4 Free Directon 02-09-2024 T4 FREE DIRECT 0.90 ng/dL Normal 0.76-1.46 [facility] Comment on above: Performed By: #### L [id number], L506.0400, L100.0100, L506.1000, L503.6030, L503.6550 #### [facility] [address] [place], [place], [id number] TSH QnOrdered By: Vera laura on 02-09-2024 Thyroid Stimulating Hormone (TSH) 12.100 uIU/mL High 0.358-3.740 [facility] Thyroid Stim Hormone (TSH)on 02-09-2024 TSH 12.100 uIU/mL High 0.358-3.740 [facility] Comment on above: Performed By: #### L [id number], L506.0400, L100.0100, L506.1000, L503.6030, L503.6550 #### [facility] [address] [place], [place], [id number] Absolute lymphocyte counton 05-23-2021 Lymphocytes Auto (Unsp spec) [#/Vol] 2.88 10*3/uL 0.83-4.51 [facility] Work Phone: Basophil percentageon 2021 Basophils/100 WBC (Bld) 0.5 % 0-1 [facility] Work Phone: Eosinophils/100 WBC (Bld) 0.7 % 0-5 [facility] Work Phone: Neutrophils (Bld) [#/Vol] 6.8 10*3/uL 2.0-7.7 [facility] Work Phone: Neutrophils/100 WBC (Bld) 64.7 % 47-70 [facility] Work Phone: WBC (Bld) [#/Vol] 10.6 10*3/uL 4.4-11.0 [facility] Work Phone: Blood erythrocytes count (nu mber/volume)on 05-23-2021 RBC (Bld) [#/Vol] 3.89 10*6/uL 4.2-5.4 [facility] Work Phone: Blood hemoglobin measurement (mass/volume)on 05-23-2021 Hemoglobin (Bld) [Mass/Vol] 12.5 g/dL 12.0-15.0 [facility] Work Phone: Blood lymphocytes/100 leukoc yteson 05-23-2021 Lymphocytes/100 WBC (Bld) 27.2 % 19-41 [facility] Work Phone: Blood monocytes/100 leukocyt eson 05-23-2021 Monocytes/100 WBC (Bld) 6.0 % 0-10 [facility] Work Phone: Blood platelet mean volumeon 05-23-2021 Platelet mean volume (Bld) [Entitic vol] 11.5 fL 6.2-12.0 [facility] Work Phone: Determination of erythrocyte mean corpuscular volume (MCV)on 05-23-2021 MCV (RBC) [Entitic vol] 93.3 fL 81-99 [facility] Work Phone: Hematocrit Auto (Bld) [Volum e fraction]on 05-23-2021 Hematocrit (Bld) [Volume fraction] 36.3 % 37-47 [facility] Work Phone: Laboratory - Hematology and Cell countson 05-23-2021 Erythrocyte distribution width (RBC) [Entitic vol] 50.4 fL 35.1-43.9 [facility] Work Phone: [phone] Erythrocyte distribution width (RBC) [Ratio] 14.8 % 11.6-14.6 [facility] Work Phone: [phone] Immature granulocytes/100 WBC (Bld) 0.900 % 0.0-0.9 [facility] Work Phone: [phone] Comment on above: IG% - Immature Granu locytes (promyelocytes, myelocytes and metamyelocytes) > 1% indicates that a LEFT SHIFT is Present. MCH (RBC) [Entitic mass] 32.1 pg 27.0-32.0 [facility] Work Phone: [phone] Nucleated RBC/100 WBC (Bld) [Ratio] 0 % 0-5 [facility] Work Phone: [phone] MCHC Auto (RBC) [Mass/Vol]on 05-23-2021 MCHC (RBC) [Mass/Vol] 34.4 g/dL 32-36 [facility] Work Phone: No Panel Informationon 05-23 Vaginal Amniotic Fluid Detection Positive Negative [facility] Work Phone: Comment on above: Amniotic fluid prese nt indicates rupture of Membranes. RESULTS CALLED TO Ninfa KRUGER RN () 05/23/21 0254 Chet Mack.REPORT READ BACK BY SAME . Platelets bldon 05-23-2021 Platelets (Bld) [#/Vol] 162 10*3/uL 150-450 [facility] Work Phone: No Panel Informationon 05-11 Group B Streptococcus Culture Group B Beta Streptococcus is not isolated. [facility] Work Phone: Basophil percentageon 2021 WBC (Bld) [#/Vol] 10.2 10*3/uL 4.4-11.0 [facility] Work Phone: Blood erythrocytes count (nu mber/volume)on 03-01-2021 RBC (Bld) [#/Vol] 3.59 10*6/uL 4.2-5.4 [facility] Work Phone: Blood hemoglobin measurement (mass/volume)on 03-01-2021 Hemoglobin (Bld) [Mass/Vol] 11.6 g/dL 12.0-15.0 [facility] Work Phone: Blood platelet mean volumeon 03-01-2021 Platelet mean volume (Bld) [Entitic vol] 11.1 fL 6.2-12.0 [facility] Work Phone: Determination of erythrocyte mean corpuscular volume (MCV)on 03-01-2021 MCV (RBC) [Entitic vol] 95.8 fL 81-99 [facility] Work Phone: [phone] Gestational diabetes screen 1-hour screen with 50g oral glucose loadon 03-01-2021 Glucose 1 Hr post 50 g glucose PO [Mass/Vol] 75 mg/dL 70-140 [facility] Work Phone: Hematocrit Auto (Bld) [Volum e fraction]on 03-01-2021 Hematocrit (Bld) [Volume fraction] 34.4 % 37-47 [facility] Work Phone: Laboratory - Hematology and Cell countson 03-01-2021 Erythrocyte distribution width (RBC) [Entitic vol] 49.0 fL 35.1-43.9 [facility] Work Phone: [phone] Erythrocyte distribution width (RBC) [Ratio] 13.8 % 11.6-14.6 [facility] Work Phone: [phone] MCH (RBC) [Entitic mass] 32.3 pg 27.0-32.0 [facility] Work Phone: MCHC Auto (RBC) [Mass/Vol]on 03-01-2021 MCHC (RBC) [Mass/Vol] 33.7 g/dL 32-36 [facility] Work Phone: Platelets bldon 03-01-2021 Platelets (Bld) [#/Vol] 193 10*3/uL 150-450 [facility] Work Phone: Vital Signs Date Time Vital Sign Value Performing Clinician Facility 12-07-2024 09:45-0400 Body temperature 97.6 [degF] Dr. Mary Nunn MD Work Phone: [facility] 12-07-2024 09:45-0400 Diastolic blood pressure 89 mm[Hg] Dr. Mary Nunn MD Work Phone: [facility] 12-07-2024 09:45-0400 Heart rate 76 /min Dr. Mary Nunn MD Work Phone: [facility] 12-07-2024 09:45-0400 Respiratory rate 18 /min Dr. Mary Nunn MD Work Phone: [facility] 12-07-2024 09:45-0400 SaO2% (BldA) [Mass fraction] 100 % Dr. Mary Nunn MD Work Phone: [facility] 12-07-2024 09:45-0400 Systolic blood pressure 117 mm[Hg] Dr. Mary Nunn MD Work Phone: [facility] 12-04-2024 14:11-0400 Body height 167.[address] Mary Nunn MD Work Phone: [facility] 12-04-2024 14:11-0400 Body mass index (BMI) [Ratio] 28.5 kg/m2 Dr. Mary Nunn MD Work Phone: [facility] 12-04-2024 14:11-0400 Body weight 80.[address] Mary Nunn MD Work Phone: [facility] 12-02-2024 13:19-0400 Body height 167.[address] Mary Nunn MD Work Phone: [facility] 12-02-2024 13:19-0400 Body mass index (BMI) [Ratio] 28.3 kg/m2 Dr. Mary Nunn MD Work Phone: [facility] 12-02-2024 13:19-0400 Body weight 79.[address] Mary Nunn MD Work Phone: [facility] 12-02-2024 13:19-0400 Diastolic blood pressure 84 mm[Hg] Dr. Mary Nunn MD Work Phone: [facility] 12-02-2024 13:19-0400 Systolic blood pressure 124 mm[Hg] Dr. Mary Nunn MD Work Phone: [facility] 11-25-2024 10:24-0400 Body height 167.[address] Mary Nunn MD Work Phone: [facility] 11-25-2024 10:24-0400 Body mass index (BMI) [Ratio] 28.1 kg/m2 Dr. Mary Nunn MD Work Phone: [facility] 11-25-2024 10:24-0400 Body weight 79.[address] Mary Nunn MD Work Phone: [facility] 11-25-2024 10:24-0400 Diastolic blood pressure 83 mm[Hg] Dr. Mary Nunn MD Work Phone: [facility] 11-25-2024 10:24-0400 Systolic blood pressure 123 mm[Hg] Dr. Mary Nunn MD Work Phone: [facility] 11-12-2024 13:36-0400 Body height 167.[address] Mary Nunn MD Work Phone: [facility] 11-12-2024 13:36-0400 Body mass index (BMI) [Ratio] 27.7 kg/m2 Dr. Mary Nunn MD Work Phone: [facility] 11-12-2024 13:36-0400 Body weight 78.[address] Mary Nunn MD Work Phone: [facility] 11-12-2024 13:36-0400 Diastolic blood pressure 88 mm[Hg] Dr. Mary Nunn MD Work Phone: [facility] 11-12-2024 13:36-0400 Systolic blood pressure 136 mm[Hg] Dr. Mary Nunn MD Work Phone: [facility] 10-31-2024 11:10-0400 Body height 167.[address] Mary Nunn MD Work Phone: [facility] 10-31-2024 11:06-0400 Body mass index (BMI) [Ratio] 27.4 kg/m2 Dr. Mary Nunn MD Work Phone: [facility] 10-31-2024 11:06-0400 Body weight 77.[address] Mary Nunn MD Work Phone: [facility] 10-31-2024 11:06-0400 Diastolic blood pressure 78 mm[Hg] Dr. Mary Nunn MD Work Phone: [facility] 10-31-2024 11:06-0400 Systolic blood pressure 130 mm[Hg] Dr. Mary Nunn MD Work Phone: [facility] 10-16-2024 13:08-0400 Body height 167.[address] Mary Nunn MD Work Phone: [facility] 10-16-2024 12:58-0400 Body mass index (BMI) [Ratio] 27.1 kg/m2 Dr. Mary Nunn MD Work Phone: [facility] 10-16-2024 12:58-0400 Body weight 76.[address] Mary Nunn MD Work Phone: [facility] 10-16-2024 12:58-0400 Diastolic blood pressure 72 mm[Hg] Dr. Mary Nunn MD Work Phone: [facility] 10-16-2024 12:58-0400 Systolic blood pressure 124 mm[Hg] Dr. Mary Nunn MD Work Phone: [facility] 09-17-2024 10:47-0400 Body height 167.[address] Mary Nunn MD Work Phone: [facility] 09-17-2024 10:47-0400 Body mass index (BMI) [Ratio] 26.4 kg/m2 Dr. Mary Nunn MD Work Phone: [facility] 09-17-2024 10:47-0400 Body weight 74.[address] Mary Nunn MD Work Phone: [facility] 09-17-2024 10:47-0400 Diastolic blood pressure 81 mm[Hg] Dr. Mary Nunn MD Work Phone: [facility] 09-17-2024 10:47-0400 Systolic blood pressure 119 mm[Hg] Dr. Mary Nunn MD Work Phone: [facility] 08-23-2024 14:28-0400 Body height 167.[address] Mary Nunn MD Work Phone: [facility] 08-23-2024 14:28-0400 Body mass index (BMI) [Ratio] 25.9 kg/m2 Dr. Mary Nunn MD Work Phone: [facility] 08-23-2024 14:28-0400 Body weight 72.[address] Mary Nunn MD Work Phone: [facility] 08-23-2024 14:28-0400 Diastolic blood pressure 85 mm[Hg] Dr. Mary Nunn MD Work Phone: [facility] 08-23-2024 14:28-0400 Systolic blood pressure 127 mm[Hg] Dr. Mary Nunn MD Work Phone: [facility] 08-09-2024 14:10-0400 Body height 167.64 cm No Primary Care Physician [facility] 08-09-2024 14:10-0400 Body mass index (BMI) [Ratio] 25.4 kg/m2 No Primary Care Physician [facility] 08-09-2024 14:10-0400 Body weight 71.66 kg No Primary Care Physician [facility] 08-09-2024 14:10-0400 Diastolic blood pressure 84 mm[Hg] No Primary Care Physician [facility] 08-09-2024 14:10-0400 Heart rate 105 /min No Primary Care Physician [facility] 08-09-2024 14:10-0400 SaO2% (BldA) [Mass fraction] 94 % No Primary Care Physician [facility] 08-09-2024 14:10-0400 Systolic blood pressure 114 mm[Hg] No Primary Care Physician [facility] 07-24-2024 14:30-0400 Body height 167.64 cm No Primary Care Physician [facility] 07-24-2024 14:29-0400 Body mass index (BMI) [Ratio] 25.4 kg/m2 No Primary Care Physician [facility] 07-24-2024 14:29-0400 Body weight 71.38 kg No Primary Care Physician [facility] 07-24-2024 14:29-0400 Diastolic blood pressure 81 mm[Hg] No Primary Care Physician [facility] 07-24-2024 14:29-0400 Systolic blood pressure 121 mm[Hg] No Primary Care Physician [facility] 07-02-2024 18:35-0400 Body temperature 98.91 [degF] Serg Grubbs APRN.CNP Work Phone: [facility] 07-02-2024 18:35-0400 Body weight 71.22 kg Serg Grubbs APRN.CNP Work Phone: [facility] 07-02-2024 18:35-0400 Diastolic blood pressure 76 mm[Hg] Serg Grubbs APRN.CNP Work Phone: [facility] 07-02-2024 18:35-0400 Heart rate 95 /min Serg Grubbs APRN.CNP Work Phone: [facility] 07-02-2024 18:35-0400 Respiratory rate 22 /min Serg Grubbs APRN.[employer]TERN [employer]ER Work Phone: [facility] 07-02-2024 18:35-0400 SaO2% (BldA) [Mass fraction] 97 % Serg Grubbs APRN.[employer]ER Work Phone: [facility] 07-02-2024 18:35-0400 Systolic blood pressure 110 mm[Hg] Serg Grubbs APRN.[employer]TERN [employer]ER Work Phone: [facility] 06-27-2024 15:02-0400 Body mass index (BMI) [Ratio] 25 kg/m2 No Primary Care Physician [facility] 06-27-2024 15:02-0400 Body weight 70.42 kg No Primary Care Physician [facility] 06-27-2024 15:02-0400 Diastolic blood pressure 83 mm[Hg] No Primary Care Physician [facility] 06-27-2024 15:02-0400 Systolic blood pressure 119 mm[Hg] No Primary Care Physician [facility] 05-30-2024 13:01-0400 Body height 167.64 cm No Primary Care Physician [facility] 05-30-2024 13:01-0400 Body mass index (BMI) [Ratio] 26.3 kg/m2 No Primary Care Physician [facility] 05-30-2024 13:01-0400 Body weight 74.04 kg No Primary Care Physician [facility] 05-30-2024 13:01-0400 Diastolic blood pressure 81 mm[Hg] No Primary Care Physician [facility] 05-30-2024 13:01-0400 Systolic blood pressure 128 mm[Hg] No Primary Care Physician [facility] 05-27-2024 17:03-0400 Body temperature 97.9 [degF] Serg Grubbs APRN.[employer]TERN [employer]ER Work Phone: [facility] 05-27-2024 17:03-0400 Body weight 74.75 kg Serg Grubbs APRN.CNP Work Phone: [facility] 05-27-2024 17:03-0400 Diastolic blood pressure 71 mm[Hg] Serg Grubbs APRN.[employer]TERN [employer]ER Work Phone: [facility] 05-27-2024 17:03-0400 Heart rate 93 /min Serg Grubbs APRN.[employer] Work Phone: [facility] 05-27-2024 17:03-0400 Respiratory rate 18 /min Serg Grubbs APRN.[employer] Work Phone: [facility] 05-27-2024 17:03-0400 Systolic blood pressure 104 mm[Hg] Serg Grubbs APRN.[employer]TERN [employer]ER Work Phone: [facility] 04-15-2024 09:05-0500 Body mass index (BMI) [Ratio] 26.9 kg/m2 No Primary Care Physician [facility] 04-15-2024 09:05-0500 Body temperature 98.2 [degF] No Primary Care Physician [facility] 04-15-2024 09:05-0500 Body weight 75.74 kg No Primary Care Physician [facility] 04-15-2024 09:05-0500 Diastolic blood pressure 74 mm[Hg] No Primary Care Physician [facility] 04-15-2024 09:05-0500 Heart rate 93 /min No Primary Care Physician [facility] 04-15-2024 09:05-0500 Respiratory rate 16 /min No Primary Care Physician [facility] 04-15-2024 09:05-0500 SaO2% (BldA) [Mass fraction] 97 % No Primary Care Physician [facility] 04-15-2024 09:05-0500 Systolic blood pressure 124 mm[Hg] No Primary Care Physician [facility] 03-29-2024 05:01-0500 Body temperature 98 [degF] No Primary Care Physician [facility] 03-29-2024 05:01-0500 Diastolic blood pressure 85 mm[Hg] No Primary Care Physician [facility] 03-29-2024 05:01-0500 Heart rate 94 /min No Primary Care Physician [facility] 03-29-2024 05:01-0500 Respiratory rate 16 /min No Primary Care Physician [facility] 03-29-2024 05:01-0500 SaO2% (BldA) [Mass fraction] 100 % No Primary Care Physician [facility] 03-29-2024 05:01-0500 Systolic blood pressure 116 mm[Hg] No Primary Care Physician [facility] 03-29-2024 03:04-0500 Body mass index (BMI) [Ratio] 26.3 kg/m2 No Primary Care Physician [facility] 03-29-2024 03:04-0500 Body weight 73.9 kg No Primary Care Physician [facility] 12-24-2022 16:20-0400 Body temperature 98.01 [degF] Bobby Lorenzo MD Work Phone: [facility] 12-24-2022 16:20-0400 Body weight 63.5 kg Bobby Lorenzo MD Work Phone: [facility] 12-24-2022 16:20-0400 Diastolic blood pressure 81 mm[Hg] Bobby Lorenzo MD Work Phone: [facility] 12-24-2022 16:20-0400 Heart rate 81 /min Bobby Lorenzo MD Work Phone: [facility] 12-24-2022 16:20-0400 Respiratory rate 19 /min Bobby Lorenzo MD Work Phone: [facility] 12-24-2022 16:20-0400 SaO2% (BldA) [Mass fraction] 100 % Bobby Lorenzo MD Work Phone: [facility] 12-24-2022 16:20-0400 Systolic blood pressure 118 mm[Hg] Bobby Lorenzo MD Work Phone: [facility] 05-19-2022 19:10-0400 Body temperature 100.6 [degF] Karina Enterprise SENIOR TECHNICAL ANALYST.PATTERN CARRIER Work Phone: [facility] 05-19-2022 19:10-0400 Body weight 68.04 kg Karina Enterprise SENIOR TECHNICAL ANALYST.PATTERN CARRIER Work Phone: [facility] 05-19-2022 19:10-0400 Diastolic blood pressure 99 mm[Hg] Karina Enterprise SENIOR TECHNICAL ANALYST.PATTERN CARRIER Work Phone: [facility] 05-19-2022 19:10-0400 Heart rate 105 /min Karina Enterprise SENIOR TECHNICAL ANALYST.PATTERN CARRIER Work Phone: [facility] 05-19-2022 19:10-0400 Respiratory rate 16 /min Karina Enterprise SENIOR TECHNICAL ANALYST.PATTERN CARRIER Work Phone: [facility] 05-19-2022 19:10-0400 SaO2% (BldA) [Mass fraction] 100 % Karina Enterprise SENIOR TECHNICAL ANALYST.PATTERN CARRIER Work Phone: [facility] 05-19-2022 19:10-0400 Systolic blood pressure 133 mm[Hg] Karina Enterprise SENIOR TECHNICAL ANALYST.PATTERN CARRIER Work Phone: [facility] 05-15-2022 14:00-0400 Body temperature 99.19 [degF] Steve Snell MD Work Phone: [facility] 05-15-2022 14:00-0400 Body weight 68.49 kg Steve Snell MD Work Phone: [facility] 05-15-2022 14:00-0400 Diastolic blood pressure 90 mm[Hg] Steve Snell MD Work Phone: [facility] 05-15-2022 14:00-0400 Heart rate 106 /min Steve Snell MD Work Phone: [facility] 05-15-2022 14:00-0400 Respiratory rate 18 /min Steve Snell MD Work Phone: [facility] 05-15-2022 14:00-0400 SaO2% (BldA) [Mass fraction] 98 % Steve Snell MD Work Phone: [facility] 05-15-2022 14:00-0400 Systolic blood pressure 120 mm[Hg] Steve Snell MD Work Phone: [facility] 05-24-2021 07:40-0400 Body temperature 97.4 [degF] No Primary Care Physician [facility] Work Phone: 05-24-2021 07:40-0400 Diastolic blood pressure 84 mm[Hg] No Primary Care Physician [facility] Work Phone: 05-24-2021 07:40-0400 Heart rate 70 /min No Primary Care Physician [facility] Work Phone: 05-24-2021 07:40-0400 Respiratory rate 17 /min No Primary Care Physician [facility] Work Phone: 05-24-2021 07:40-0400 Systolic blood pressure 117 mm[Hg] No Primary Care Physician [facility] Work Phone: 05-23-2021 12:04-0400 SaO2% (BldA) [Mass fraction] 99 % No Primary Care Physician [facility] Work Phone: 05-23-2021 02:05-0400 Body height 167.64 cm No Primary Care Physician [facility] Work Phone: 05-23-2021 02:05-0400 Body mass index (BMI) [Ratio] 26.9 kg/m2 No Primary Care Physician [facility] Work Phone: 05-23-2021 02:05-0400 Body weight 75.74 kg No Primary Care Physician [facility] Work Phone: Encounters Encounter Date Encounter Type Care Provider Facility Start: 12-07-2024 Non-patient / Non-visit America Dudley [facility] Start: 12-06-2024 Non-patient / Non-visit America Dudley [facility] Start: 12-05-2024 Non-patient / Non-visit Dr. Vera Love MD -[facility] Start: 12-04-2024 Non-patient / Non-visit Dr. Vera Love MD -[facility] Start: 12-04-2024 End: 12-07-2024 Evaluation and management of inpatient Dr. Vera Love MD -[facility] [place] Work Phone: Start: 12-04-2024 End: 12-04-[address] Mary Nunn MD Work Phone: [facility] Start: 12-04-2024 End: 12-04-[address] Vera Love MD -Ultrasound [facility] Work Phone: Start: 12-04-2024 End: 12-04-2024 ambulatory Mary Osunalay Facility:[facility] Start: 12-02-2024 End: 12-02-[address] Mary Nunn MD Work Phone: -[facility]atory [facility]imen Start: 12-02-2024 End: 12-02-2024 Patient encounter procedure America LAWRENCE -[facility] Specimen Work Phone: Start: 12-02-2024 End: 12-02-2024 Patient encounter procedure America Dudley Brett -[facility] Work Phone: Start: 12-02-2024 End: 12-02-[address] Mary Nunn MD Work Phone: -[facility] Start: 12-02-2024 End: 12-02-2024 ambulatory America Dudley Facility:[facility] Start: 11-25-2024 End: 11-25-2024 Patient encounter procedure Grazyna CRAWFORD -[facility] Work Phone: Start: 11-25-2024 End: 11-25-[address] Mary Nunn MD Work Phone: -[facility] Start: 11-25-2024 End: 11-25-2024 ambulatory Mary Nunn Facility:[facility] Start: 11-18-2024 End: 11-18-[address] Mary Nunn MD Work Phone: -Ultrasound [facility] Start: 11-18-2024 End: 11-18-[address] Vera Love MD -Ultrasound [facility] Work Phone: Start: 11-18-2024 End: 11-18-2024 ambulatory Mary Nunn Facility:[facility] Start: 11-12-2024 End: 11-12-2024 Patient encounter procedure America Dudley CNM -[facility] Work Phone: Start: 11-12-2024 End: 11-12-[address] Mary Nunn MD Work Phone: [facility] Start: 11-11-2024 End: 11-11-[address] Mary Nunn MD Work Phone: -Ultrasound [facility] Start: 11-11-2024 End: 11-11-[address] Vera Love MD -Ultrasound [facility] Work Phone: Start: 11-11-2024 End: 11-11-2024 ambulatory Mary Osunalay Facility:[facility] Start: 10-31-2024 End: 10-31-[address] Vera Love MD -[facility] Work Phone: Start: 10-31-2024 End: 10-31-[address] Mary Nunn MD Work Phone: [facility] Start: 10-16-2024 End: 10-16-2024 Patient encounter procedure Grazyna CRAWFORD -[facility] Work Phone: Start: 10-16-2024 End: 10-16-[address] Mary Nunn MD Work Phone: [facility] Start: 10-16-2024 End: 10-16-2024 ambulatory Mary Nunn Facility:[facility] Start: 09-17-2024 End: 09-17-[address] Vera Love MD -[facility] Work Phone: Start: 09-17-2024 End: 09-17-[address] Mary Nunn MD Work Phone: [facility] Start: 08-23-2024 End: 08-23-2024 Patient encounter procedure Devora Go CNM -[facility] Work Phone: Start: 08-23-2024 End: 08-23-[address] Mary Nunn MD Work Phone: -[facility] Start: 08-23-2024 End: 08-23-2024 ambulatory Devoradeepak Go Facility:[facility] Start: 08-21-2024 End: 08-21-2024 ambulatory JOAQUIN [facility] Start: 08-09-2024 End: 08-09-[address] Meliton Herr MD -[facility] Work Phone: Start: 08-09-2024 End: 08-09-2024 ambulatory No Primary Care Physician [facility] Work Phone: Start: 08-05-2024 End: 08-05-2024 ambulatory MD [facility] Start: 07-24-2024 End: 07-24-[address] Amelia Wong DO -[facility] Work Phone: Start: 07-24-2024 End: 07-24-2024 ambulatory No Primary Care Physician [facility] Work Phone: Start: 07-24-2024 End: 07-24-2024 ambulatory Mary Nunn Facility:[facility] Start: 07-02-2024 End: 07-02-2024 Office outpatient visit 15 minutes Serg Grubbs APRN.CNP Work Phone: [facility] Comment on above: Acute non-recurrent frontal sinusitis (Primary Dx); 14 weeks gestation of (HCC) Start: 07-02-2024 End: 07-02-2024 ambulatory MARY NUNN Facility:[id number] Start: 06-27-2024 End: 06-27-2024 Patient encounter procedure America LAWRENCE -[facility] Work Phone: Start: 06-27-2024 End: 06-27-2024 ambulatory Mary Arline Facility:[facility] Start: 06-13-2024 End: 06-13-2024 ambulatory No Primary Care Physician [facility] Work Phone: Start: 06-13-2024 End: 06-13-2024 Patient encounter procedure Sheri Hernandes LEGAL PROCESS SPECIALIST-C -Lab, [facility] Start: 06-13-2024 End: 06-13-2024 ambulatory Sheri Cecilio Facility:[facility] Start: 05-30-2024 End: 05-30-2024 ambulatory No Primary Care Physician [facility] Work Phone: Start: 05-30-2024 End: 05-30-2024 Patient encounter procedure America Dudley CNM -Laboratory, Specimen Work Phone: Start: 05-30-2024 End: 05-30-2024 Patient encounter procedure America LAWRENCEM -[facility] Work Phone: Start: 05-30-2024 End: 05-30-2024 ambulatory Marybill Fuy Facility:[facility] Start: 05-30-2024 End: 05-30-2024 ambulatory Mary Glenmoore Facility:[facility] Start: 05-27-2024 End: 05-27-2024 ambulatory MARY G ARLINE Facility:[id number] Start: 05-27-2024 End: 05-27-2024 Office outpatient visit 15 minutes Serg Grubbs APRN.PATTERN CARRIER Work Phone: [facility] Comment on above: Acute otitis media, left (Primary Dx) Start: 04-19-2024 End: 04-19-[address] Mary Nunn MD -Ultrasound, [facility] Work Phone: Start: 04-19-2024 End: 04-19-2024 ambulatory Mary Nunn Facility:[facility] Start: 04-15-2024 End: 04-15-[address] Mary Nunn MD -[facility] Work Phone: Start: 04-15-2024 End: 04-15-2024 ambulatory No Primary Care Physician Facility:[facility] Start: 04-15-2024 End: 04-15-2024 ambulatory Mary Arline Facility:[facility] Start: 03-29-2024 End: 03-29-2024 Emergency department patient visit Dr. Chas Contreras -Emergency Department Work Phone: Start: 02-09-2024 End: 02-09-[address] Vera oLve MD -Laboratory Work Phone: Start: 02-09-2024 End: 02-09-2024 ambulatory Vera Love Facility:[facility] Start: 12-24-2022 End: 12-24-2022 Patient encounter procedure Bobby Lorenzo MD Work Phone: [facility] Comment on above: URI, acute (Primary Dx) Start: 05-19-2022 End: 05-19-2022 Patient encounter procedure Karina Garcia SENIOR TECHNICAL ANALYST.PATTERN CARRIER Work Phone: [facility] Comment on above: Bacterial sinusitis (Primary Dx) Start: 05-15-2022 End: 05-15-2022 Office outpatient new 30 minutes Steve Snell MD Work Phone: [facility] Comment on above: Viral illness (Prima ry Dx); Sinus congestion; Eustachian tube dysfunction, bilateral Start: 05-23-2021 End: 05-24-2021 Evaluation and management of inpatient No Primary Care Physician [facility] Start: 05-11-2021 End: 05-11-2021 Patient encounter procedure No Primary Care Physician [facility]-Laboratory, Specimen Start: 04-29-2021 Non-patient / Non-visit No Primary Care Physician [facility] Start: 04-29-2021 End: 04-29-2021 Patient encounter procedure No Primary Care Physician [facility] Start: 03-01-2021 End: 03-01-2021 Patient encounter procedure No Primary Care Physician [facility]-Laboratory, [place] [facility] [employer] Start: 06-10-2017 Emergency department patient visit Caterina cOonnor [facility] Procedures Date Procedure Procedure Detail Performing Clinician Start: 12-04-[address] Mary Nunn MD Work Phone: Start: 12-04-2024 Serologic test for syphilis Dr. Mary Nunn MD Work Phone: Start: 12-04-2024 Ultrasonography for antepartum monitoring of fetus Dr. Mary Nunn MD Work Phone: Start: 12-02-2024 Measurement of pH in vaginal fluid specimen using nitrazine yellow for detection of rupture of amniotic membrane Dr. Mary Nunn MD Work Phone: Comment on above: Amniotic fluid not p resent indicates No Rupture of FetalMembranes at time of specimen collection. Start: 12-02-2024 Beta-hemolytic Strep tococcus culture Dr. Mary Nunn MD Work Phone: Start: 11-18-2024 Ultrasonography for antepartum monitoring of fetus Dr. Mary Nunn MD Work Phone: Start: 11-11-2024 Ultrasound scan for growth Dr. Mary Nunn MD Work Phone: Start: 10-16-2024 Serologic test for syphilis Dr. Mary Nunn MD Work Phone: Start: 06-13-2024 End: 06-13-2024 Procedure No Primary Care Physician Comment on above: Test Ordered: [id number] TSH Receptor Antibody (TBII)TSH Receptor Antibody (TBII) <0.3 U/L Reference Range: .Reference Range:Antibody Titer:<1.0 U/L = Negative1.1 - 1.5 U/L = Equivocal>1.5 U/L = PositivePerformed at: [facility] [id number] [place], [place] [id number] Director: Renato Bates MD, Phone: [phone] at: [facility] [address] [id number] Director: Gopi Covington PhD, Phone: [phone] Start: 06-13-2024 Hepatitis C antibody measurement No [...] HCV Quant by PCR testing - HCVPCR #[id number] Non Reactive: < 0.8 Equivocal: >/= 0.8 [...] Start: 04-19-2024 US scan of thyroid No P rimary Care Physician Start: 04-15-2024 Total iron binding [...] Treatment Date Care Activity Detail Author Start: 12-07-2024 Patient discharge [facility] Start: 12-05-2024 End: 12-06-2024 [facility] Start: 12-05-2024 Documentation procedure [facility] Start: 12-05-2024 Application of ice collar, cap or bag [facility] Start: 12-05-2024 Catheterization of vein [facility] Start: 12-05-2024 Introduction of urinary catheter [facility] Start: 12-05-2024 Measuring intake and output [facility] Start: 12-05-2024 Notification of physician [facility] Start: 12-05-2024 Procedure discontinued [facility] Start: 12-05-2024 Provision of activity privileges [facility] Start: 12-05-2024 Vital signs measurements [facility] Start: 12-04-2024 Ultrasonography for antepartum monitoring of fetus OB US LIMITED FETUS(S) [facility] Start: 12-04-2024 Admission procedure [facility] Start: 12-02-2024 Beta-hemolytic Streptococcus culture CULTURE SCREEN ONLY [facility] Start: 12-02-2024 Fluid sample globulin level EVAL AMNIOTIC FLUID PROTEIN [facility] Start: 12-02-2024 Group B Streptococcus Culture Group B Streptococcus Culture [facility] Start: 12-02-2024 Streptococcus agalactiae [Presence] in Unspecified specimen by Organism specific culture [facility] Start: 11-25-2024 End: 11-25-2024 Patient encounter procedure -[facility] Work Phone: Start: 11-03-2024 RSV Vaccine (1 - Risk 1-dose series) RSV Vaccine (1 - Risk 1-dose series) [facility] Start: 10-28-2024 Influenza vaccination Influenza Vaccine (Season Ended) [facility] Start: 10-16-2024 CBC W Auto Differential panel - Blood [facility] Start: 10-16-2024 Measurement of glucose 2 hours after glucose challenge for glucose tolerance test [facility] Start: 10-16-2024 Serologic test for syphilis [facility] Start: 10-16-2024 T4 free measurement [facility] Start: 10-16-2024 [facility] Start: 08-23-2024 Thyroperoxidase Ab [Units/volume] in Serum or Plasma [facility] Start: 08-23-2024 T4 free measurement [facility] Start: 08-23-2024 Thyroid stimulating hormone measurement [facility] Start: 08-23-2024 Triiodothyronine, free measurement [facility] Start: 07-24-2024 T4 free measurement [facility] Start: 06-13-2024 Procedure [facility] Start: 10-29-2023 Covid-19 Vaccine ( season) Covid-19 Vaccine ( season) [facility] Start: 10-29-2023 Influenza vaccination Influenza Vaccine (#1) [facility] Start: 10-28-2022 Influenza vaccination Influenza Vaccine (#1) [facility] Start: 02-27-2022 DEPRESSION ASSESSMENT DEPRESSION ASSESSMENT [facility] Start: 10-28-2021 Influenza vaccination INFLUENZA (#1) [facility] Start: 08-15-2015 PAP TESTING PAP TESTING [facility] Start: 08-15-2015 Screening for malignant neoplasm of cervix Cervical Cancer Screening [facility] Start: 2013 Hepatitis B Vaccine (1 of 3 - 19+ 3-dose series) Hepatitis B Vaccine (1 of 3 - 19+ 3-dose series) [facility] Start: 2013 Urine microalbumin profile [facility] Start: 2012 Anxiety Screening Anxiety Screening [facility] Start: 2012 Depression Screening Depression Screening [facility] Start: 2012 HEPATITIS C SCREENING HEPATITIS C SCREENING [facility] Start: 2012 Hepatitis C screening Hepatitis C Screening [facility] Start: 2012 HIV SCREENING HIV SCREENING [facility] Start: 2012 HIV screening HIV Screening [facility] Start: 02-13-1995 COVID-19 VACCINE (#1) COVID-19 VACCINE (#1) [facility] Start: 1994 HEPATITIS B (1 of 3 - 3-dose series) HEPATITIS B (1 of 3 - 3-dose series) [facility] Start: 1994 Hepatitis B Vaccine (1 of 3 - 3-dose series) Hepatitis B Vaccine (1 of 3 - 3-dose series) [facility] Beta-hemolytic Streptococcus culture [facility] CBC W Auto Different ial panel - Blood [facility] CBC W Auto Different ial panel - Blood [facility] Erythrocyte mean corpuscular volume determination [facility] Hematocrit [Volume Fraction] of Blood [facility] Hemoglobin [Mass/vol ume] in Blood [facility] Hepatitis C antibody measurement [facility] Leukocytes [#/volume ] in Blood [facility] Mean corpuscular hemoglobin concentration determination [facility] Mean corpuscular hemoglobin determination [facility] Measurement of gluco se 2 hours after glucose challenge for glucose tolerance test [facility] Neutrophil count [facility] Neutrophil percent differential count [facility] Patient Education [facility] Work Phone: Patient referral [facility] Work Phone: Platelets [#/volume] in Blood [facility] Procedure [facility] Red blood cell count [facility] Red cell distributio n width determination [facility] Rubella IgG measurement [facility] Serologic test for syphilis [facility] Serologic test for syphilis [facility] T4 free measurement [facility] T4 free measurement [facility] Thyroid stimulating hormone measurement [facility] Thyroid stimulating hormone measurement [facility] Thyroid stimulating hormone measurement [facility] Thyroid stimulating hormone measurement [facility] Thyroperoxidase Ab [Units/volume] in Serum or Plasma [facility] Triiodothyronine, fr ee measurement [facility] Triiodothyronine, fr ee measurement [facility] Ultrasound scan for growth [facility] Immunizations Immunization Date Immunization Notes Care Provider [facility] 10-16-2024 tetanus toxoid, redu harry diphtheria toxoid, and acellular pertussis vaccine, adsorbed Dr. Mary Nunn MD Work Phone: [facility] 12-19-2018 influenza, seasonal, injectable, preservative free No Primary Care Physician [facility] 12-19-2018 influenza virus vaccine, unspecified formulation Bobby Lorenzo MD Work Phone: [facility] 11-27-2018 influenza, injectabl e, quadrivalent, preservative free No Primary Care Physician [facility] 11-27-2018 influenza, seasonal, injectable No Primary Care Physician [facility] Work Phone: 01-12-2009 novel [id number], preservative-free, injectable No Primary Care Physician [facility] Payers Date Payer Category Payer Self-pay 2022 Medicaid [facility] [id number] 2022 Unknown [id number] 2022 Unknown [id number]. [id number] 1994 Unknown [id number] 2.16.840.1.967256.3.579.2.479 1994 Unknown [id number] 2.16.840.1.571655.3.579.2.479 Unknown SELF PAY INSURANCE [id number] Unknown [id number] 2.16.840.1.384805.3.579.2.462 Unknown [id number] 2.16.840.1.393539.3.579.2.462 Unknown [id number] 2.16.840.1.109561.3.579.2.462 Unknown [id number] 2.16.840.1.120477.3.579.2.462 Unknown [id number] 2.16.840.1.351654.3.579.2.462 Unknown [id number] 2.16.840.1.561416.3.579.2.462 Unknown [id number] 2.16.840.1.445587.3.579.2.462 Unknown [id number] 2.16.840.1.190736.3.579.2.462 Unknown [id number] 2.840.1.525757.3.579.2.462 Unknown [id number] 2.840.1.448567.3.579.2.462 Unknown [id number] 2.840.1.185103.3.579.2.462 Unknown [id number] 2.840.1.496230.3.579.2.462 Unknown [id number] 2.840.1.559875.3.579.2.462 Unknown [id number] 2.840.1.623528.3.579.2.462 Unknown [id number] 2.840.1.393808.3.579.2.462 Unknown [id number] 2.840.1.662170.3.579.2.462 Unknown [id number] 2.840.1.431997.3.579.2.462 Unknown [id number] 2.840.1.507518.3.579.2.462 Unknown [id number] 2.840.1.574721.3.579.2.462 Unknown [id number] 2.840.1.393280.3.579.2.462 Unknown [id number] 2.840.1.506718.3.579.2.462 Unknown [id number] 2.840.1.216130.3.579.2.462 Unknown [id number] 2.840.1.284819.3.579.2.462 Unknown [id number] 2.16.840.1.159024.3.579.2.462 Unknown [id number] 2.16.840.1.315471.3.579.2.462 Unknown [id number] 2.16.840.1.852797.3.579.2.462 Unknown [id number] 2.16.840.1.149244.3.579.2.462 Unknown [id number] 2.16.840.1.415621.3.579.2.462 Unknown [id number] 2.16.840.1.193377.3.579.2.462 Unknown [id number] 2.16.840.1.850352.3.579.2.462 Unknown [id number] 2.16.840.1.854461.3.579.2.462 Social History Date Type Detail Facility Start: 05-23-2021 Tobacco smoking stat [facility] Unknown if ever smoked [facility] Work Phone: Start: 10-06-2019 None [facility] Start: 1995 Sex Assigned At Female [facility] Start: 05-15-2022 End: 12-04-2024 Tobacco smoking status NJIS Never smoked tobacco [facility] Start: 05-15-2022 Tobacco use and exposure Smokeless tobacco non-user [facility] Start: 05-15-2022 End: 07-02-2024 Alcohol intake Lifetime non-drinker (finding) [facility] Start: 1995 Sex Assigned At Not on file [facility] Start: 05-15-2022 End: 12-24-2022 History of Social function [facility] Start: 05-15-2022 End: 12-24-2022 Tobacco use panel [facility] Adult Depression Screening Assessment [address] [facility] Start: 06-04-2024 End: 06-19-2024 Sex Female (finding) [facility] Start: 04-07-[address] [facility] Medical Equipment Procedure Code Equipment Code Equipment [...] laparoscopic 45mm Standard Reload FDA Start: 07-19-2019 Goals Date Patient Goal Desired Activity /State Clinical Notes 05-15-2022 to 12-07-2024 Note Date & Type Note Facility 12-07-2024 Discharge summary Note Date/Time December 07, 2024 7:08am [facility] Medical Records Department [address] [place] [address] Discharge Summary 12/07/24 0705 MR#: [id number] Acct: [id number] Name: VESTA HERNANDEZ Rep #:[id number] : 1995 29 From: America Dudley CNM PCP: Dr. Mary Nunn MD Status:ADM IN Location: [id number] Providers Date of Admission: 12/04/24 Date of Discharge: 12/07/24 Primary Care Physician: Dr. Mary Nunn MD Reason For Visit: VAGINAL DELIVERY Diagnosis Discharge Diagnosis (1) Vaginal delivery: Status: Acute Code(s): O80 - Encounter for full-term uncomplicated delivery Plan: s/p PPD # 2 1. routine post delivery care 2. breast feeding- support given 3. rh positive 4. rubella immune 5. Discharge home (2) Positive GBS test: Status: Acute Code(s): B95.1 - Streptococcus, group B, as the cause of diseases classified elsewhere (3) Oligohydramnios in third trimester: Status: Acute Code(s): O41.03X0 - Oligohydramnios, third trimester, not applicable or unspecified (4) Abnormal genetic test during : Status: Acute Code(s): O28.5 - Abnormal chromosomal and genetic finding on screening of mother (5) Missed with demise before 20 completed weeks of gestation: Status: Acute Code(s): O02.1 - Missed (6) Hypothyroid: Status: Chronic Code(s): E03.9 - Hypothyroidism, unspecified Qualifiers: Hypothyroidism type: acquired Qualified Code(s): E03.9 - Hypothyroidism, unspecified (7) Supervision of high-risk : Status: Acute Code(s): O09.90 - Supervision of high risk , unspecified, unspecified trimester Qualifiers: Trimester: third trimester Qualified Code(s): O09.93 - Supervision of high risk , unspecified, third trimester (8) : Status: Acute Code(s): Z34.90 - Encounter for supervision of normal , unspecified, unspecifiedtrimester Qualifiers: Weeks of gestation: 36 weeks Qualified Code(s): Z3A.36 - 36 weeks gestation of (9) Abnormal TSH: Status: Acute Code(s): R79.89 - Other specified abnormal findings of blood chemistry Medications at Discharge Home Medications levothyroxine 88 mcg tablet 88 mcg PO QDAY thyroid #60 tabs 07/26/24 [id number] 120 mcg-dha 25 mg-herb no.293 66.7 mg chew tablet (Alive Premium ) 2 tab PO DAILY 08/09/24 valacyclovir 1 gram tablet (Valtrex) 1,000 mg PO BID PRN at onset of cold sore 08/09/24 Hospital Course Operations None Procedures None Summary of Care Provided Minutes Spent on Discharge: 30 Physical Exam Const alert, oriented x3 and no apparent distress Neck full ROM Resp normal respiratory effort, normal air movement and no retractions Effort and Inspection: able to speak in complete sentences and symmetric chest movement GI soft to palpation Inspection: incision intact Bladder / Kidney Exam: bladder normal to palpation Uterus Palpation: uterus fundus Extremity normal to inspection and full ROM Psych mental status grossly normal, thought process normal and cooperative Weight / BMI Weight Weight: 177 lb Body Mass Index (BMI) 28.5 ABG / Lab / Microbiology Data 12/04/24 14:10 12/04/24 14:10 D/C Instructions May shower in (days): 0 May resume sexual activity in: 4-6 weeks Weight Bearing Status: Full weight bearing Call your doctor if your incision/area has: Continuous Slow Oozing, Sudden Increased Bleeding, Increased Pain/ Swelling, Increased Redness and Foul Smelling Discharge Call your doctor if you observe: Fever of 101 or Higher and Using more than 1 pad per hour (for 2 hours) Suture Line Care: Avoid Pulling/Pushing and Avoid Pinching/Bending Cleanse incision/area with: Soap & Water and Keep Dressing Clean & Dry DC O2, CPAP, BIPAP Needs Home O2 Discharge instructions: No Please Follow Up With: Vera Love MD When: Call [phone] to make an appointment with your doctor in 6 weeks. If you had elevated blood pressure or 4th degree laceration, you will need to be seen in 2 weeks. Meaningful Use Info Meaningful Use Meaningful Use Diagnoses (Choose all that apply): None applicable Discharge Plan Admission Admit Date/Time: 12/04/24 13:16 Attending Provider: Vera Love Primary Care Provider: Mary Nunn Discharge Orders/Prescriptions Prescriptions: No Action Alive Premium 120 mcg-25 mg- 66.7 mg tablet,chewable 2 tab PO DAILY valacyclovir [Valtrex] 1 gram tablet 1,000 mg PO BID PRN (Reason: at onset of cold sore) levothyroxine 88 mcg tablet 88 mcg PO QDAY Qty: 60 1RF Referrals / Follow Up: Mary Nunn MD [Primary Care Provider, Internal Medicine] Disposition Disposition (needs filled in before D/C Order can be placed): Home, Self Care Charges/Coding Multi Select Codes Urinary/Genital Urinary/Genital CPT Codes: No Charge 12/07/24 0708 <Electronically signed by America Dudley CNM> Cosigner Signature (if applicable): CC: FRANDY Dudley; Dr. Mary Nunn MD~ Signed [facility] Work Phone: 1(670) 264-329610-11-2025 Progress note Author America Dudley [facility] Note Date/Time December 07, 2024 7 :05am [facility] Medical Records Department [address] [place] [address] Progress Note - OBGYN 12/07/24703 MR#: [id number] Acct: [id number] Name: VESTA HERNANDEZ Rep #:[id number] : 1995 29 From: America Dudley CNM PCP: Dr. Mary Nunn MD Status:ADM IN [id number] Subjective Subjective Patient doing well without complaints. Tolerating PO. Ambulating and voiding without difficulty. Feeding well. Denies chest pain, shortness of breath, calf pain/swelling, fevers, chills, lightheadedness. Objective Data Objective Data Vital Signs: Vital Signs Temp Pulse Resp BP Pulse Ox O2 Del Method 97.8 F 76 16 123/87 H 98 Room Air 12/07/24 01:30 12/07/24 01:30 12/07/24 01:30 12/07/24 01:30 12/07/24 01:30 12/07/24 01:30 Oxygen Delivery Method Room Air Weight: 177 lb Body Mass Index (BMI) 28.5 Intake & Output: Intake and Output for Last 24 Hours 12/05/24 12/06/24 12/07/24 23:59 23:59 23:59 Intake Total 1398.30 / 1398.30 Output Total 600 / 600 Balance 798.30 / 798.30 Lab / Micro Data 12/04/24 14:10 12/04/24 14:10 ROS Constitutional Constitutional: Reports systems reviewed and no addt'l complaints, except as documented; Denies anorexia or headache(s) Cardiovascular Cardiovascular: Reports systems reviewed and no addt'l complaints, except as documented; Denies dizziness, dyspnea, nausea or tachypnea Respiratory/Chest Respiratory/Chest: Reports systems reviewed and no addt'l complaints, except as documented; Denies cough, dyspnea, shortness of breath at rest or tachypnea Gastrointestinal Gastrointestinal: Reports systems reviewed and no addt'l complaints, except as documented; Denies abdominal pain, constipation or nausea Genitourinary Genitourinary: Reports systems reviewed and no addt'l complaints, except as documented; Denies burning urination, difficulty urinating, dysuria, urinary frequency or urinary incontinence Musculoskeletal Musculoskeletal: Reports systems reviewed and no addt'l complaints, except as documented Integumentary Integumentary: Reports systems reviewed and no addt'l complaints, except as documented Neurologic Neurologic: Reports systems reviewed and no addt'l complaints, except as documented; Denies abnormal speech, dizziness or headache(s) Psychiatric Psychiatric: Reports systems reviewed and no addt'l complaints, except as documented Endocrine Endocrinology: Reports systems reviewed and no addt'l complaints, except as documented Hematologic/Lymphatic Hematologic/Lymphatic: Reports systems reviewed and no addt'l complaints, exceptas documented Physical Exam Const alert, oriented x3 and no apparent distress Neck full ROM Resp normal respiratory effort, normal air movement and no retractions Effort and Inspection: able to speak in complete sentences and symmetric chest movement GI soft to palpation Bladder / Kidney Exam: bladder normal to palpation Uterus Palpation: uterus fundus firm Extremity normal to inspection and full ROM Psych mental status grossly normal, thought process normal and cooperative Assessment & Plan (1) Vaginal delivery: PLAN: s/p PPD # 2 1. routine post delivery care 2. breast feeding- support given 3. rh positive 4. rubella immune 5. Discharge home (2) Positive GBS test: COMMENT: treat in labor (3) Oligohydramnios in third trimester: (4) Abnormal genetic test during : COMMENT: NIPT XYY, discussed genetic counseling and offered MFM referral, had anatomy scan and WNL. declined genetic counseling visit. ANC worksheet sent, need to ask peds when genetic testing is done after . ordered growth US 32 and 26 weeks, and plan weekly NSTs from 36 weeks on (5) Missed with demise before 20 completed weeks of gestation: COMMENT: H/O D&C 09/2023 with SM (6) Hypothyroid: QUALIFIERS: Hypothyroidism type: acquired Qualified Code(s): E03.9 - Hypothyroidism, unspecified COMMENT: Levothyroxine 112mcg 88mcg-repeat labs 08/23 (7) Supervision of high-risk : QUALIFIERS: Trimester: third trimester Qualified Code(s): O09.93 - Supervision of high risk , unspecified, third trimester COMMENT: PRR , CODY / boy PC: Christian Hein Kynzie, Dawson BF: Sulaiman (8) : QUALIFIERS: Weeks of gestation: 36 weeks Qualified Code(s): Z3A.36 - 36 weeks gestation of COMMENT: GBS pos, NIPT w gender & carrier- undecided (9) Abnormal TSH: COMMENT: need free T4 now. If normal, repeat TSH and Free T4 in 3 months Charges/Coding Multi Select Codes Urinary/Genital Urinary/Genital CPT Codes: No Charge 12/07/24 07 <Electronically signed by America Dudley CNM> Cosigner Signature (if applicable): CC: ~ Signed [facility] Work Phone: 1(643) 993-447110-11-2025 Discharge summary [facility] Medical Records Department [address] [place] [address] Discharge Summary 12/07/24704 MR#: [id number] Acct: [id number] Name: VESTA HERNANDEZ Rep #:[id number] : 1995 29 From: America Dudley CNM PCP: Dr. Mary Nunn MD Status:ADM IN [facility] Providers Date of Admission: 12/04/24 Date of Discharge: 12/07/24 Primary Care Physician: Dr. Mary Nunn MD Reason For Visit: VAGINAL DELIVERY Diagnosis Discharge Diagnosis (1) Vaginal delivery: Status: Acute Code(s): O80 - Encounter for full-term uncomplicated delivery Plan: s/p PPD # 2 1. routine post delivery care 2. breast feeding- support given 3. rh positive 4. rubella immune 5. Discharge home (2) Positive GBS test: Status: Acute Code(s): B95.1 - Streptococcus, group B, as the cause of diseases classified elsewhere (3) Oligohydramnios in third trimester: Status: Acute Code(s): O41.03X0 - Oligohydramnios, third trimester, not applicable or unspecified (4) Abnormal genetic test during : Status: Acute Code(s): O28.5 - Abnormal chromosomal and genetic finding on screening of mother (5) Missed with demise before 20 completed weeks of gestation: Status: Acute Code(s): O02.1 - Missed (6) Hypothyroid: Status: Chronic Code(s): E03.9 - Hypothyroidism, unspecified Qualifiers: Hypothyroidism type: acquired Qualified Code(s): E03.9 - Hypothyroidism, unspecified (7) Supervision of high-risk : Status: Acute Code(s): O09.90 - Supervision of high risk , unspecified, unspecified trimester Qualifiers: Trimester: third trimester Qualified Code(s): O09.93 - Supervision of high risk , unspecified, third trimester (8) : Status: Acute Code(s): Z34.90 - Encounter for supervision of normal , unspecified, unspecifiedtrimester Qualifiers: Weeks of gestation: 36 weeks Qualified Code(s): Z3A.36 - 36 weeks gestation of (9) Abnormal TSH: Status: Acute Code(s): R79.89 - Other specified abnormal findings of blood chemistry Medications at Discharge Home Medications levothyroxine 88 mcg tablet 88 mcg PO QDAY thyroid #60 tabs 07/26/24 [id number] 120 mcg-dha 25 mg-herb no.293 66.7 mg chew tablet (Alive Premium ) 2 tabPO DAILY 08/09/24 valacyclovir 1 gram tablet (Valtrex) 1,000 mg PO BID PRN at onset of cold sore 08/09/24 Hospital Course Operations None Procedures None Summary of Care Provided Minutes Spent on Discharge: 30 Physical Exam Const alert, oriented x3 and no apparent distress Neck full ROM Resp normal respiratory effort, normal air movement and no retractions Effort and Inspection: able to speak in complete sentences and symmetric chest movement GI soft to palpation Inspection: incision intact Bladder / Kidney Exam: bladder normal to palpation Uterus Palpation: uterus fundus Extremity normal to inspection and full ROM Psych mental status grossly normal, thought process normal and cooperative Weight / BMI Weight Weight: 177 lb Body Mass Index (BMI) 28.5 ABG / Lab / Microbiology Data 12/04/24 14:10 12/04/24 14:10 D/C Instructions May shower in (days): 0 May resume sexual activity in: 4-6 weeks Weight Bearing Status: Full weight bearing Call your doctor if your incision/area has: Continuous Slow Oozing, Sudden Increased Bleeding, Increased Pain/ Swelling, Increased Redness and Foul Smelling Discharge Call your doctor if you observe: Fever of 101 or Higher and Using more than 1 pad per hour (for 2 hours) Suture Line Care: Avoid Pulling/Pushing and Avoid Pinching/Bending Cleanse incision/area with: Soap & Water and Keep Dressing Clean & Dry DC O2, CPAP, BIPAP Needs Home O2 Discharge instructions: No Please Follow Up With: Vera Love MD When: Call [phone] to make an appointment with your doctor in 6 weeks. If you had elevated blood pressure or 4th degree laceration, you will need to be seen in 2 weeks. Meaningful Use Info Meaningful Use Meaningful Use Diagnoses (Choose all that apply): None applicable Discharge Plan Admission Admit Date/Time: 12/04/24 13:16 Attending Provider: Vera Love Primary Care Provider: Mary Nunn Discharge Orders/Prescriptions Prescriptions: No Action Alive Premium 120 mcg-25 mg- 66.7 mg tablet,chewable 2 tab PO DAILY valacyclovir [Valtrex] 1 gram tablet 1,000 mg PO BID PRN (Reason: at onset of cold sore) levothyroxine 88 mcg tablet 88 mcg PO QDAY Qty: 60 1RF Referrals / Follow Up: Mary Nunn MD [Primary Care Provider, Internal Medicine] Disposition Disposition (needs filled in before D/C Order can be placed): Home, Self Care Charges/Coding Multi Select Codes Urinary/Genital Urinary/Genital CPT Codes: No Charge 12/07/24 0708 Cosigner Signature (if applicable): CC: FRANDY Dudley; Dr. Mary Nunn MD~ Signed [facility]10-11-2025 [facility] Medical Records Department [address] [place] [address] Discharge Summary 12/07/24 0705 MR#: [id number] Acct: [id number] Name: VESTA HERNANDEZ Rep #: [id number] : 1995 29 From: America Dudley CNM PCP: Dr. Mary Nunn MD Status:ADM IN Location: [id number] Providers Date of Admission: 12/04/24 Date of Discharge: 12/07/24 Primary Care Physician: Dr. Mary Nunn MD Reason For Visit: VAGINAL DELIVERY Diagnosis Discharge Diagnosis (1) Vaginal delivery: Status: Acute Code(s): O80 - Encounter for full-term uncomplicated delivery Plan: s/p PPD # 2 1. routine post delivery care 2. breast feeding- support given 3. rh positive 4. rubella immune 5. Discharge home (2) Positive GBS test: Status: Acute Code(s): B95.1 - Streptococcus, group B, as the cause of diseases classified elsewhere (3) Oligohydramnios in third trimester: Status: Acute Code(s): O41.03X0 - Oligohydramnios, third trimester, not applicable or unspecified (4) Abnormal genetic test during : Status: Acute Code(s): O28.5 - Abnormal chromosomal and genetic finding on screening of mother (5) Missed with demise before 20 completed weeks of gestation: Status: Acute Code(s): O02.1 - Missed (6) Hypothyroid: Status: Chronic Code(s): E03.9 - Hypothyroidism, unspecified Qualifiers: Hypothyroidism type: acquired Qualified Code(s): E03.9 - Hypothyroidism, unspecified (7) Supervision of high-risk : Status: Acute Code(s): O09.90 - Supervision of high risk , unspecified, unspecified trimester Qualifiers: Trimester: third trimester Qualified Code(s): O09.93 - Supervision of high risk , unspecified, third trimester (8) : Status: Acute Code(s): Z34.90 - Encounter for supervision of normal , unspecified, unspecified trimester Qualifiers: Weeks of gestation: 36 weeks Qualified Code(s): Z3A.36 - 36 weeks gestation of (9) Abnormal TSH: Status: Acute Code(s): R79.89 - Other specified abnormal findings of blood chemistry Medications at Discharge Home Medications levothyroxine 88 mcg tablet 88 mcg PO QDAY thyroid #60 tabs 07/26/24 [id number]-enl-djsba 120 mcg-dha 25 mg-herb no.293 66.7 mg chew tablet (Alive Premium ) 2 tab PO DAILY 08/09/24 valacyclovir 1 gram tablet (Valtrex) 1,000 mg PO BID PRN at onset of cold sore 08/09/24 Hospital Course Operations None Procedures None Summary of Care Provided Minutes Spent on Discharge: 30 Physical Exam Const alert, oriented x3 and no apparent distress Neck full ROM Resp normal respiratory effort, normal air movement and no retractions Effort and Inspection: able to speak in complete sentences and symmetric chest movement GI soft to palpation Inspection: incision intact Bladder / Kidney Exam: bladder normal to palpation Uterus Palpation: uterus fundus Extremity normal to inspection and full ROM Psych mental status grossly normal, thought process normal and cooperative Weight / BMI Weight Weight: 177 lb Body Mass Index (BMI) 28.5 ABG / Lab / Microbiology Data 12/04/24 14:10 12/04/24 14:10 D/C Instructions May shower in (days): 0 May resume sexual activity in: 4-6 weeks Weight Bearing Status: Full weight bearing Call your doctor if your incision/area has: Continuous Slow Oozing, Sudden Increased Bleeding, Increased Pain/ Swelling, Increased Redness and Foul Smelling Discharge Call your doctor if you observe: Fever of 101 or Higher and Using more than 1 pad per hour (for 2 hours) Suture Line Care: Avoid Pulling/Pushing and Avoid Pinching/Bending Cleanse incision/area with: Soap Water and Keep Dressing Clean Dry DC O2, CPAP, BIPAP Needs Home O2 Discharge instructions: No Please Follow Up With: Vera Love MD When: Call [phone] to make an appointment with your doctor in 6 weeks. If you had elevated blood pressure or 4th degree laceration, you will need to be seen in 2 weeks. Meaningful Use Info Meaningful Use Meaningful Use Diagnoses (Choose all that apply): None applicable Discharge Plan Admission Admit Date/Time: 12/04/24 13:16 Attending Provider: Vera Love Primary Care Provider: Mary Nunn Discharge Orders/Prescriptions Prescriptions: No Action Alive Premium 120 mcg-25 mg- 66.7 mg tablet,chewable 2 tab PO DAILY valacyclovir [Valtrex] 1 gram tablet 1,000 mg PO BID PRN (Reason: at onset of cold sore) levothyroxine 88 mcg tablet 88 mcg PO QDAY Qty: 60 1RF Referrals / Follow Up: Mary Nunn MD [Primary Care Provider, Internal Medicine] Disposition Disposition (needs filled in before D/C Order can be placed): Home, Self Care Charges/Coding Multi Select Codes Urinar (more content not included)...[facility]10-11-2025 Progress note [facility] Medical Records Department [address] [place] [address] Progress Note - OBGYN 12/07/24 0704 MR#: [id number] Acct: [id number] Name: VESTA HERNANDEZ Rep #:[id number] : 1995 29 From: America Dudley CNM PCP: Dr. Mary Nunn MD Status:ADM IN Location: [place] [address] Subjective Subjective Patient doing well without complaints. Tolerating PO. Ambulating and voiding without difficulty. Feeding well. Denies chest pain, shortness of breath, calf pain/swelling, fevers, chills, lightheadedness. Objective Data Objective Data Vital Signs: Vital Signs Temp Pulse Resp BP Pulse Ox O2 Del Method 97.8 F 76 16 123/87 H 98 Room Air 12/07/24 01:30 12/07/24 01:30 12/07/24 01:30 12/07/24 01:30 12/07/24 01:30 12/07/24 01:30 Oxygen Delivery Method Room Air Weight: 177 lb Body Mass Index (BMI) 28.5 Intake & Output: Intake and Output for Last 24 Hours 12/05/24 12/06/24 12/07/24 23:59 23:59 23:59 Intake Total 1398.30 / 1398.30 Output Total 600 / 600 Balance 798.30 / 798.30 Lab / Micro Data 12/04/24 14:10 12/04/24 14:10 ROS Constitutional Constitutional: Reports systems reviewed and no addt'l complaints, except as documented; Denies anorexia or headache(s) Cardiovascular Cardiovascular: Reports systems reviewed and no addt'l complaints, except as documented; Denies dizziness, dyspnea, nausea or tachypnea Respiratory/Chest Respiratory/Chest: Reports systems reviewed and no addt'l complaints, except as documented; Denies cough, dyspnea, shortness of breath at rest or tachypnea Gastrointestinal Gastrointestinal: Reports systems reviewed and no addt'l complaints, except as documented; Denies abdominal pain, constipation or nausea Genitourinary Genitourinary: Reports systems reviewed and no addt'l complaints, except as documented; Denies burning urination, difficulty urinating, dysuria, urinary frequency or urinary incontinence Musculoskeletal Musculoskeletal: Reports systems reviewed and no addt'l complaints, except as documented Integumentary Integumentary: Reports systems reviewed and no addt'l complaints, except as documented Neurologic Neurologic: Reports systems reviewed and no addt'l complaints, except as documented; Denies abnormal speech, dizziness or headache(s) Psychiatric Psychiatric: Reports systems reviewed and no addt'l complaints, except as documented Endocrine Endocrinology: Reports systems reviewed and no addt'l complaints, except as documented Hematologic/Lymphatic Hematologic/Lymphatic: Reports systems reviewed and no addt'l complaints, exceptas documented Physical Exam Const alert, oriented x3 and no apparent distress Neck full ROM Resp normal respiratory effort, normal air movement and no retractions Effort and Inspection: able to speak in complete sentences and symmetric chest movement GI soft to palpation Bladder / Kidney Exam: bladder normal to palpation Uterus Palpation: uterus fundus firm Extremity normal to inspection and full ROM Psych mental status grossly normal, thought process normal and cooperative Assessment & Plan (1) Vaginal delivery: PLAN: s/p PPD # 2 1. routine post delivery care 2. breast feeding- support given 3. rh positive 4. rubella immune 5. Discharge home (2) Positive GBS test: COMMENT: treat in labor (3) Oligohydramnios in third trimester: (4) Abnormal genetic test during : COMMENT: NIPT XYY, discussed genetic counseling and offered MFM referral, had anatomy scan and WNL.declined genetic counseling visit. ANC worksheet sent, need to ask peds when genetic testing is done after . ordered growth US 32 and 26 weeks, and plan weekly NSTs from 36 weeks on (5) Missed with demise before 20 completed weeks of gestation: COMMENT: H/O D&C 09/2023 with SM (6) Hypothyroid: QUALIFIERS: Hypothyroidism type: acquired Qualified Code(s): E03.9 - Hypothyroidism, unspecified COMMENT: Levothyroxine 112mcg 88mcg-repeat labs 08/23 (7) Supervision of high-risk : QUALIFIERS: Trimester: third trimester Qualified Code(s): O09.93 - Supervision of high risk , unspecified, third trimester COMMENT: PRR , CODY / boy PC: Christian Hein Kynzie, Dawson BF: Sulaiman (8) : QUALIFIERS: Weeks of gestation: 36 weeks Qualified Code(s): Z3A.36 - 36 weeks gestation of COMMENT: GBS pos, NIPT w gender & carrier- undecided (9) Abnormal TSH: COMMENT: need free T4 now. If normal, repeat TSH and Free T4 in 3 months Charges/Coding Multi Select Codes Urinary/Genital Urinary/Genital CPT Codes: No Charge 12/07/24 0705 Cosigner Signature (if applicable): CC: ~ Signed [facility]10-10-2025 Progress note Author America Dudley [facility] Note Date/Time December 06, 2024 7 :54am [facility] Medical Records Department [address] [place] [address] Progress Note - OBGYN 12/06/24 0753 MR#: [id number] Acct: [id number] Name: VESTA HERNANDEZ Rep #:[id number] : 1995 29 From: America Dudley CNM PCP: Dr. Mary Nunn MD Status:ADM IN Location: [place] [address]-1 Subjective Subjective Patient doing well without complaints. Tolerating PO. Ambulating and voiding without difficulty. Feeding well. Denies chest pain, shortness of breath, calf pain/swelling, fevers, chills, lightheadedness. Objective Data Objective Data Vital Signs: Vital Signs Temp Pulse Resp BP Pulse Ox O2 Del Method 97.2 F L 77 16 120/87 H 97 Room Air 12/06/24 04:45 12/06/24 04:45 12/06/24 04:45 12/06/24 04:45 12/06/24 04:45 12/06/24 04:45 Oxygen Delivery Method Room Air Weight: 177 lb Body Mass Index (BMI) 28.5 Intake & Output: Intake and Output for Last 24 Hours 1012/05/24 12/06/24 23:59 23:59 23:59 Intake Total 2084.53 / 2084.53 1398.30 / 1398.30 Output Total 600 / 600 Balance 2084.53 / 2084.53 798.30 / 798.30 Lab / Micro Data 12/04/24 14:10 12/04/24 14:10 ROS Constitutional Constitutional: Reports systems reviewed and no addt'l complaints, except as documented; Denies anorexia or headache(s) Cardiovascular Cardiovascular: Reports systems reviewed and no addt'l complaints, except as documented; Denies dizziness, dyspnea, nausea or tachypnea Respiratory/Chest Respiratory/Chest: Reports systems reviewed and no addt'l complaints, except as documented; Denies cough, dyspnea, shortness of breath at rest or tachypnea Gastrointestinal Gastrointestinal: Reports systems reviewed and no addt'l complaints, except as documented; Denies abdominal pain, constipation or nausea Genitourinary Genitourinary: Reports systems reviewed and no addt'l complaints, except as documented; Denies burning urination, difficulty urinating, dysuria, urinary frequency or urinary incontinence Musculoskeletal Musculoskeletal: Reports systems reviewed and no addt'l complaints, except as documented Integumentary Integumentary: Reports systems reviewed and no addt'l complaints, except as documented Neurologic Neurologic: Reports systems reviewed and no addt'l complaints, except as documented; Denies abnormal speech, dizziness or headache(s) Psychiatric Psychiatric: Reports systems reviewed and no addt'l complaints, except as documented Endocrine Endocrinology: Reports systems reviewed and no addt'l complaints, except as documented Hematologic/Lymphatic Hematologic/Lymphatic: Reports systems reviewed and no addt'l complaints, exceptas documented Physical Exam Const alert, oriented x3 and no apparent distress Neck full ROM Resp normal respiratory effort, normal air movement and no retractions Effort and Inspection: able to speak in complete sentences and symmetric chest movement GI soft to palpation Bladder / Kidney Exam: bladder normal to palpation Uterus Palpation: uterus fundus firm Extremity normal to inspection and full ROM Psych mental status grossly normal, thought process normal and cooperative Assessment & Plan (1) Positive GBS test: COMMENT: treat in labor (2) Oligohydramnios in third trimester: (3) Abnormal genetic test during : COMMENT: VARGHESE RUSSELL, discussed genetic counseling and offered MFM referral, had anatomy scan and WNL. declined genetic counseling visit. ANC worksheet sent, need to ask peds when genetic testing is done after . ordered growth US 32 and 26 weeks, and plan weekly NSTs from 36 weeks on (4) Missed with demise before 20 completed weeks of gestation: COMMENT: H/O D&C 09/2023 with SM (5) Hypothyroid: QUALIFIERS: Hypothyroidism type: acquired Qualified Code(s): E03.9 - Hypothyroidism, unspecified COMMENT: Levothyroxine 112mcg 88mcg-repeat labs 08/23 (6) Supervision of high-risk : QUALIFIERS: Trimester: third trimester Qualified Code(s): O09.93 - Supervision of high risk , unspecified, third trimester COMMENT: PRR , CODY 12/29 boy PC: Christian Hein Kynzie, Dawson BF: Sulaiman (7) : QUALIFIERS: Weeks of gestation: 36 weeks Qualified Code(s): Z3A.36 - 36 weeks gestation of COMMENT: GBS pos, NIPT w gender & carrier- undecided (8) Abnormal TSH: COMMENT: need free T4 now. If normal, repeat TSH and Free T4 in 3 months (9) Vaginal delivery: PLAN: s/p PPD # 1 1. routine post delivery care 2. breast feeding- support given 3. rh positive 4. rubella immune Charges/Coding Multi Select Codes Urinary/Genital Urinary/Genital CPT Codes: No Charge 12/06/244 <Electronically signed by America Dudley CNM> Cosigner Signature (if applicable): CC: ~ Signed [facility] Work Phone: 1(764) 732-649910-10-2025 Progress note [facility] Medical Records Department [address] [place] [address] Progress Note - OBGYN 12/06/24 0753 MR#: [id number] Acct: [id number] Name: VESTA HERNANDEZ Rep #:[id number] : 1995 29 From: America Dudley CNM PCP: Dr. Mary Nunn MD Status:ADM IN [facility] Subjective Subjective Patient doing well without complaints. Tolerating PO. Ambulating and voiding without difficulty. Feeding well. Denies chest pain, shortness of breath, calf pain/swelling, fevers, chills, lightheadedness. Objective Data Objective Data Vital Signs: Vital Signs Temp Pulse Resp BP Pulse Ox O2 Del Method 97.2 F L 77 16 120/87 H 97 Room Air 12/06/24 04:45 12/06/24 04:45 12/06/24 04:45 12/06/24 04:45 12/06/24 04:45 12/06/24 04:45 Oxygen Delivery Method Room Air Weight: 177 lb Body Mass Index (BMI) 28.5 Intake & Output: Intake and Output for Last 24 Hours 12/04/24 12/05/24 12/06/24 23:59 23:59 23:59 Intake Total 2085.53 / 2085.53 1398.30 / 1398.30 Output Total 600 / 600 Balance 2085.53 / 2085.53 798.30 / 798.30 Lab / Micro Data 12/04/24 14:10 12/04/24 14:10 ROS Constitutional Constitutional: Reports systems reviewed and no addt'l complaints, except as documented; Denies anorexia or headache(s) Cardiovascular Cardiovascular: Reports systems reviewed and no addt'l complaints, except as documented; Denies dizziness, dyspnea, nausea or tachypnea Respiratory/Chest Respiratory/Chest: Reports systems reviewed and no addt'l complaints, except as documented; Denies cough, dyspnea, shortness of breath at rest or tachypnea Gastrointestinal Gastrointestinal: Reports systems reviewed and no addt'l complaints, except as documented; Denies abdominal pain, constipation or nausea Genitourinary Genitourinary: Reports systems reviewed and no addt'l complaints, except as documented; Denies burning urination, difficulty urinating, dysuria, urinary frequency or urinary incontinence Musculoskeletal Musculoskeletal: Reports systems reviewed and no addt'l complaints, except as documented Integumentary Integumentary: Reports systems reviewed and no addt'l complaints, except as documented Neurologic Neurologic: Reports systems reviewed and no addt'l complaints, except as documented; Denies abnormal speech, dizziness or headache(s) Psychiatric Psychiatric: Reports systems reviewed and no addt'l complaints, except as documented Endocrine Endocrinology: Reports systems reviewed and no addt'l complaints, except as documented Hematologic/Lymphatic Hematologic/Lymphatic: Reports systems reviewed and no addt'l complaints, exceptas documented Physical Exam Const alert, oriented x3 and no apparent distress Neck full ROM Resp normal respiratory effort, normal air movement and no retractions Effort and Inspection: able to speak in complete sentences and symmetric chest movement GI soft to palpation Bladder / Kidney Exam: bladder normal to palpation Uterus Palpation: uterus fundus firm Extremity normal to inspection and full ROM Psych mental status grossly normal, thought process normal and cooperative Assessment & Plan (1) Positive GBS test: COMMENT: treat in labor (2) Oligohydramnios in third trimester: (3) Abnormal genetic test during : COMMENT: NIPT XYY, discussed genetic counseling and offered MFM referral, had anatomy scan and WNL.declined genetic counseling visit. ANC worksheet sent, need to ask peds when genetic testing is done after . ordered growth US 32 and 26 weeks, and plan weekly NSTs from 36 weeks on (4) Missed with demise before 20 completed weeks of gestation: COMMENT: H/O D&C 09/2023 with (5) Hypothyroid: QUALIFIERS: Hypothyroidism type: acquired Qualified Code(s): E03.9 - Hypothyroidism, unspecified COMMENT: Levothyroxine 112mcg 88mcg-repeat labs 08/23 (6) Supervision of high-risk : QUALIFIERS: Trimester: third trimester Qualified Code(s): O09.93 - Supervision of high risk , unspecified, third trimester COMMENT: PRR , CODY 12/29 boy PC: Christian Hein Kynzie, Dawson BF: Sulaiman (7) : QUALIFIERS: Weeks of gestation: 36 weeks Qualified Code(s): Z3A.36 - 36 weeks gestation of COMMENT: GBS pos, NIPT w gender & carrier- undecided (8) Abnormal TSH: COMMENT: need free T4 now. If normal, repeat TSH and Free T4 in 3 months (9) Vaginal delivery: PLAN: s/p PPD # 1 1. routine post delivery care 2. breast feeding- support given 3. rh positive 4. rubella immune Charges/Coding Multi Select Codes Urinary/Genital Urinary/Genital CPT Codes: No Charge 12/06/24 9344 Cosigner Signature (if applicable): CC: ~ Signed [facility]10-09-2025 Discharge summary Author Vera Love [facility] Note Date/Time December 05, 2024 5: 38am [facility] Medical Records Department [address] [place] [address] Instructions for Home/Discharge Instructions 12/05/2437 MR#: [id number] Acct: [id number] Name: VESTA HERNANDEZ Rep #:[id number] : 1995 29 From: Vera bowen MD PCP: Dr. Mary Nunn MD Status:ADM IN Discharge Instructions DC O2, CPAP, BIPAP needs Home O2 Discharge instructions: No Dressing / Incision Discharge Activity: Return to Normal Activity, May Not Drive (while taking narcotic pain medications.) and May Shower May resume sexual activity in: 4-6 weeks Dressing / Incision Call your doctor if your incision/area has: Continuous Slow Oozing, Sudden Increased Bleeding, Increased Pain/ Swelling, Increased Redness and Foul Smelling Discharge Follow Up Care Please Follow Up With: Vera Love MD When: Call [phone] to make an appointment with your doctor in 6 weeks. If you had elevated blood pressure or 4th degree laceration, you will need to be seen in 2 weeks. Test Results: Test results from this visit will be discussed in further detail at your follow- up appointment, if applicable. Discharge Plan Admission Admit Date/Time: 12/04/24 13:16 Attending Provider: Vera Love Primary Care Provider: Mary Nunn Discharge Orders/Prescriptions Prescriptions: No Action Alive Premium 120 mcg-25 mg- 66.7 mg tablet,chewable 2 tab PO DAILY valacyclovir [Valtrex] 1 gram tablet 1,000 mg PO BID PRN (Reason: at onset of cold sore) levothyroxine 88 mcg tablet 88 mcg PO QDAY Qty: 60 1RF Referrals / Follow Up: Mary Nunn MD [Primary Care Provider, Internal Medicine] 12/05/2438<Electronically signed by Vera Love MD>Vera Love MD CC: Dr. Mary Nunn MD ~ Signed [facility] Work Phone: 1(903) 847-792410-09-2025 Discharge summary [facility] Medical Records Department [address] [place] [address] Instructions for Home/Discharge Instructions 12/05/24 0537 MR#: [id number] Acct: [id number] Name: VESTA HERNANDEZ Rep #:[id number] : 1995 29 From: Vera bowen MD PCP: Dr. Mary Nunn MD Status:ADM IN Discharge Instructions DC O2, CPAP, BIPAP needs Home O2 Discharge instructions: No Dressing / Incision Discharge Activity: Return to Normal Activity, May Not Drive (while taking narcotic pain medications.) and May Shower May resume sexual activity in: 4-6 weeks Dressing / Incision Call your doctor if your incision/area has: Continuous Slow Oozing, Sudden Increased Bleeding, Increased Pain/ Swelling, Increased Redness and Foul Smelling Discharge Follow Up Care Please Follow Up With: Vera Love MD When: Call [phone] to make an appointment with your doctor in 6 weeks. If you had elevated blood pressure or 4th degree laceration, you will need to be seen in 2 weeks. Test Results: Test results from this visit will be discussed in further detail at your follow- up appointment, if applicable. Discharge Plan Admission Admit Date/Time: 12/04/24 13:16 Attending Provider: Vera Love Primary Care Provider: Mary Nunn Discharge Orders/Prescriptions Prescriptions: No Action Alive Premium 120 mcg-25 mg- 66.7 mg tablet,chewable 2 tab PO DAILY valacyclovir [Valtrex] 1 gram tablet 1,000 mg PO BID PRN (Reason: at onset of cold sore) levothyroxine 88 mcg tablet 88 mcg PO QDAY Qty: 60 1RF Referrals / Follow Up: Mary Nunn MD [Primary Care Provider, Internal Medicine] 12/05/24 0538Vera Love MD CC: Dr. Mary Nunn MD ~ Signed [facility]10-09-2025 Procedure note [facility] Medical Records Department [address] [place] [address] OB Vaginal Delivery 12/05/24 0534 MR#: [id number] Acct: [id number] Name: VESTA HERNANDEZ Rep #:[id number] : 1995 29 From: Vera bowen MD PCP: Dr. Mary Nunn MD Status:ADM IN Location: [id number] Assessment & Plan (1) Oligohydramnios in third trimester: (2) Abnormal genetic test during : COMMENT: NIPT XYY, discussed genetic counseling and offered MFM referral, had anatomy scan and WNL.declined genetic counseling visit. ANC worksheet sent, need to ask peds when genetic testing is done after . ordered growth US 32 and 26 weeks, and plan weekly NSTs from 36 weeks on (3) Missed with demise before 20 completed weeks of gestation: COMMENT: H/O D&C 09/2023 with SM (4) Hypothyroid: QUALIFIERS: Hypothyroidism type: acquired Qualified Code(s): E03.9 - Hypothyroidism, unspecified COMMENT: Levothyroxine 112mcg 88mcg-repeat labs 08/23 (5) Supervision of high-risk : QUALIFIERS: Trimester: third trimester Qualified Code(s): O09.93 - Supervision of high risk , unspecified, third trimester COMMENT: PRR , CODY 12/29 boy PC: Christian Hein Kynzie, Dawson BF: Sulaiman (6) : QUALIFIERS: Weeks of gestation: 36 weeks Qualified Code(s): Z3A.36 - 36 weeks gestation of COMMENT: NIPT w gender & carrier- undecided (7) Abnormal TSH: COMMENT: need free T4 now. If normal, repeat TSH and Free T4 in 3 months Maternal Data Information CODY Calculator Estimated Delivery Date Method Current WG Current Estimate 12/29/24 LMP (Certain) 36w 4d Other Estimates 12/26/24 Ultrasound #1 37w 0d Vaginal Delivery Maternal Presentation Maternal Presentation: see assessment and plan Vaginal Delivery Information Procedure Performed: Spontaneous Vaginal Delivery Surgeon/Practitioner: Vera Love Date of Procedure: 12/05/24 Pre-Procedure Diagnosis: oligo Type of anesthesia: Epidural Estimated Blood Loss: 100 Findings Description of procedure: Patient began pushing and delivered the head in the VAUGHN presentation. The head was delivered atraumatically and a loose nuchal cord ?1 was identified and easily reduced over the infant's head. The anterior and posterior shoulders delivered without complication followed by the rest of the infant andthe infantwas placed on the maternal abdomen. Delayed cord clamping was employed for approximately 60 seconds. Cord was clamped and cut and gentle traction was applied to the cord and the placenta delivered spontaneously immediately following it was noted to be intact with three-vessel cord. The perineum and vagina were inspected and was noted to have no laceration. EBL was 100 cc. Patient and infant tolerated delivery well. 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 Mary Nunn MD; Dr. Vera Love MD~ Signed [facility]10-09-2025 Progress note [facility] Note Date/Time December 05, 2024 12 :00am [facility] Medical Records Department [address] [place] [address] Progress Note 12/04/242358 MR#: [id number] Acct: [id number] Name: VESTA HERNANDEZ Rep #:[id number] : 1995 29 From: Vera bowen MD PCP: Dr. 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 Mary Nunn MD Status:ADM IN Location: [id number] HPI - General General Date of Admission: 12/04/24 HPI Narrative VESTA HERNANDEZ, is a 29 F who presents for IOL secondary to oligo. no vb lof admits good fm no regular ctx Maternal Data Information CODY Calculator Estimated Delivery Date Method Current WG Current Estimate 12/29/24 LMP (Certain) 36w 3d Other Estimates 12/26/24 Ultrasound #1 36w 6d PFSH PFSH Medical History Missed Kidney stone Alcohol use Low iron Migraine headache Blackout History of echocardiogram (spontaneous vaginal delivery) Home Medications ?Medication ?Instructions ?Recorded ?Last Taken ?Type levothyroxine 88 mcg tablet 88 mcg PO QDAY thyroid #60 tabs 07/26/24 12/04/24 Rx [id number] 120 mcg-dha 25 2 tab PO DAILY pregn dionne 08/09/24 12/03/24 History mg-herb no.293 66.7 mg chew tablet (Alive Premium ) valacyclovir 1 gram tablet 1,000 mg PO BID PRN at onse t of 08/09/24 Unknown History (Valtrex) cold sore Allergy/AdvReac Type Severity Reaction Status Date / Time No Known Allergies Allergy Verified 12/04/24 15:54 Family History Father Cancer, Onset Age: 57 Prostate ca Hypertension Grandfather Cancer, Onset Age: 70 Maternal Prostate Cancer Grandmother COPD (chronic obstructive pulmonary disease) Maternal Mother Hypertension Sister Fatty liver due to alcoholism Unknown Thyroid disorder Aunt Thyroid disorder Surgical History H/O dilation and curettage History of cystoscopy S/P foot surgery, right History of laparoscopic appendectomy (~07/19/19) Social History adopted: No household members: significant other and children housing: house number of children: 4 current occupational status: unemployed current occupation: [employer] pets and animals: No history of [...] 5-6 times per week duration: 30-45 minutes/day andie/yarsani: None seatbelt use: always do you feel [...] live - full term 8#1oz Female epidural [facility] 03/03/18 [place] 39 live - full term 8#13oz Male epid ural [facility] Dr.Weeman Hilario 10/06/19 [place] 38 live - full term 6#3oz Female epid ural [facility] Pj Hilario 05/23/21 [place] 38 live - full term 8#5oz Male epidu ral [facility] Suzanne Hilario 10/16/23 D&C Visit Details Expected Delivery Route/Plan Labor Preferences- CB/BF classes: no labor support person: Sulaiman labor intervention preferences: [] pain management options preferred: epidural cut cord/dad catch: cord : yes PP control planned: [] discussed possible routes of delivery and associated risks: [] special requests: [] Plans Covid status: [] Flu vaccine: [] Tdap vaccine: given Rhogam: na LARC form signed: yes Problem list reviewed and updated with the most current plan of care details and appropriate orders placed. Relevant counseling for the gestational age provided. Continue routine care and follow up unless otherwise noted in visit notes/problem list details OB Flowsheet Initial Weight: 163 lb Date -?-?-?-?-?-?-?-?-?-?-?-?- EGA Weight BP Urine Prot -?-?-?-?-?-?-?-?-?-?-?-?- Glucose FHR FuHt Pres Dilation -?--?-?-?-?-?-?-?-?-?-?-?- Effaced St Visit Note 05/30/24 -?-?-?-?-?-?-?-?-?-?-?-?- 9w [...] views now completed- pending report. no vb/cramping. 09/17/24 -?-?-?--?-?-?-?-?-?-?-?-?- 25w 2d 163 lb 8 oz (+8 oz) 119/81 Negative -?-?-?-?-?-?-?-?-?-?-?-?- Negative 145 25 -?-?-?-?-?-?-?-?-?-?-?-?- SM- no vb lof go od fm no regular ctx 10/16/24 -?-?-?-?-?-?-?-?-?-?-?-?- 29w 3d 168 lb 8 oz (+5 lb 8 oz) 124/72 Negative -?-?-?-?-?-?-?-?-?-?-?-?- Negative 160 29 -?-?-?-?-?-?-?-?-?-?-?-?- MH-No VB, LOF. G ood FM Larc, tdap. 28 wk labs pending 10/31/24 -?-?-?-?-?-?-?-?-?-?-?-?- 31w 4d 170 lb (+7 lb) 130/78 Negative -?-?-?-?-?-?-?-?-?-?-?-?- Negative 155 31 -?-?-?-?-?-?-?-?-?-?-?-?- SM- no vb lof go od fm no reuglar ctx 11/12/24 -?-?-?-?-?-?-?-?-?-?-?-?- 33w 2d 172 lb (+9 lb) 136/88 Negative -?-?-?-?-?-?-?-?-?-?-?-?- Negative 140 33 -?-?-?-?-?-?-?-?-?-?-?-?- KW- no vb/lof/ct x. good fm. thyroid labs at next appt. Growth us and NSTs at 36 weeks. 11/25/24 -?-?-?-?-?-?-?-?--?-?-?-?- 35w 1d 174 lb 6 oz (+11 lb 6 oz) 123/83 Negative -?-?-?-?-?-?-?-?-?-?-?-?- Negative 142 35 -?-?-?-?-?-?-?-?-?-?-?-?- MH-No VB, LOF. G ood FM. Thyroid labs today as did not do last visit. 12/02/24 -?-?-?-?-?-?-?-?-?-?-?-?- 36w 1d 175 lb 2 oz (+12 lb 2 oz) 124/84 Negative -?-?-?-?-?-?-?-?-?-?-?-?- Negative 140 36 34 2.5 -?-?-?-?-?-?-?-?-?-?-?-?- 40 -3 KW- no vb/ lof/ctx. good fm. has 36 week growth US scheduled. GBS today. NST FHR Rate Baby A Baseline: 130 Variability:: Moderate Accelerations:: 15 x 15 Decelerations:: None NST Reactive:: Yes FHR Category:: Category I Uterine Activity:: irregular ROS Constitutional Constitutional: Reports systems reviewed and no addt'l complaints, except as documented Eyes Eyes: Denies change in vision ENT HEENT: Reports systems reviewed and no addt'l complaints, except as documented; Denies headache(s) Cardiovascular Cardiovascular: Reports systems reviewed and no addt'l complaints, except as documented; Denies chest pain or dyspnea Respiratory/Chest Respiratory/Chest: Reports systems reviewed and no addt'l complaints, except as documented Gastrointestinal Gastrointestinal: Reports systems reviewed and no addt'l complaints, except as documented; Denies abdominal pain Genitourinary Genitourinary: Reports systems reviewed and no addt'l complaints, except as documented, contractions Details: present (irregular) and movement Details: present; Denies dysuria or genital lesions Musculoskeletal Musculoskeletal: Reports systems reviewed and no addt'l complaints, except as documented Neurologic Neurologic: Reports systems reviewed and no addt'l complaints, except as documented Endocrine Endocrinology: Reports systems reviewed and no addt'l complaints, except as documented Vital Signs Vital Signs Vital Signs: 12/04/24 13:41 12/04/24 13:41 12/04/24 13:41 Temperature Temperature Source Pulse Rate 94 Respiratory Rate Blood Pressure 157/90 H BP Systolic 157 BP Diastolic 90 Pulse Ox 100 12/04/24 13:58 12/04/24 13:58 12/04/24 13:58 Temperature Temperature Source Oral Pulse Rate 90 Respiratory Rate Blood Pressure 128/89 H BP Systolic 128 BP Diastolic 89 Pulse Ox 12/04/24 13:58 12/04/24 13:58 12/04/24 13:58 Temperature 98.4 F Temperature Source Pulse Rate Respiratory Rate 16 Blood Pressure BP Systolic BP Diastolic Pulse Ox 98 12/04/24 15:56 12/04/24 15:56 12/04/24 15:56 Temperature Temperature Source Pulse Rate 102 H Respiratory Rate 17 Blood Pressure 132/90 H BP Systolic 132 BP Diastolic 90 Pulse Ox 12/04/24 15:56 12/04/24 17:00 12/04/24 17:00 Temperature 98.6 F Temperature Source Pulse Rate 93 Respiratory Rate Blood Pressure 133/91 H BP Systolic 133 BP Diastolic 91 Pulse Ox 12/04/24 17:00 12/04/24 18:01 12/04/24 18:01 Temperature Temperature Source Pulse Rate 93 Respiratory Rate 17 Blood Pressure 135/87 H BP Systolic 135 BP Diastolic 87 Pulse Ox 12/04/24 18:01 12/04/24 18:01 12/04/24 18:46 Temperature 98.1 F Temperature Source Pulse Rate Respiratory Rate 17 Blood Pressure 138/88 H BP Systolic 138 BP Diastolic 88 Pulse Ox 12/04/24 18:46 12/04/24 18:46 12/04/24 18:46 Temperature 98.1 F Temperature Source Pulse Rate 89 Respiratory Rate 17 Blood Pressure BP Systolic BP Diastolic Pulse Ox 12/04/24 19:13 12/04/24 19:13 12/04/24 19:13 Temperature Temperature Source Oral Pulse Rate 89 Respiratory Rate 16 Blood Pressure BP Systolic BP Diastolic Pulse Ox 12/04/24 19:13 12/04/24 19:13 12/04/24 19:14 Temperature 98.0 F Temperature Source Pulse Rate Respiratory Rate Blood Pressure 136/82 H BP Systolic 136 BP Diastolic 82 Pulse Ox 99 12/04/24 19:14 12/04/24 20:16 12/04/24 20:16 Temperature Temperature Source Pulse Rate 86 93 Respiratory Rate Blood Pressure 141/79 H BP Systolic 141 BP Diastolic 79 Pulse Ox 12/04/24 20:52 12/04/24 20:52 12/04/24 20:52 Temperature Temperature Source Pulse Rate 101 H Respiratory Rate Blood Pressure 137/93 H BP Systolic 137 BP Diastolic 93 Pulse Ox 100 12/04/24 20:57 12/04/24 20:57 12/04/24 20:57 Temperature Temperature Source Pulse Rate 108 H Respiratory Rate Blood Pressure 139/89 H BP Systolic 139 BP Diastolic 89 Pulse Ox 99 12/04/24 20:57 12/04/24 21:02 12/04/24 21:02 Temperature Temperature Source Pulse Rate 116 H Respiratory Rate 16 Blood Pressure 150/96 H BP Systolic 150 BP Diastolic 96 Pulse Ox 12/04/24 21:02 12/04/24 21:07 12/04/24 21:07 Temperature Temperature Source Pulse Rate 101 H Respiratory Rate Blood Pressure 144/83 H BP Systolic 144 BP Diastolic 83 Pulse Ox 99 12/04/24 21:07 12/04/24 21:12 12/04/24 21:12 Temperature Temperature Source Pulse Rate 85 Respiratory Rate Blood Pressure BP Systolic BP Diastolic Pulse Ox 98 98 12/04/24 21:13 12/04/24 21:13 12/04/24 21:16 Temperature Temperature Source Pulse Rate 85 Respiratory Rate 16 Blood Pressure 140/80 H BP Systolic 140 BP Diastolic 80 Pulse Ox 12/04/24 21:17 12/04/24 21:17 12/04/24 21:17 Temperature Temperature Source Pulse Rate 84 Respiratory Rate Blood Pressure 131/87 H BP Systolic 131 BP Diastolic 87 Pulse Ox 97 12/04/24 21:20 12/04/24 21:20 12/04/24 21:22 Temperature 98.2 F Temperature Source Oral Pulse Rate Respiratory Rate Blood Pressure 121/72 H BP Systolic 121 BP Diastolic 72 Pulse Ox 12/04/24 21:22 12/04/24 21:22 12/04/24 21:22 Temperature Temperature Source Pulse Rate 88 Respiratory Rate 16 Blood Pressure BP Systolic BP Diastolic Pulse Ox 97 12/04/24 21:27 12/04/24 21:27 12/04/24 21:27 Temperature Temperature Source Pulse Rate 76 Respiratory Rate Blood Pressure 126/72 H BP Systolic 126 BP Diastolic 72 Pulse Ox 98 12/04/24 21:27 12/04/24 21:29 12/04/24 21:29 Temperature Temperature Source Pulse Rate 81 Respiratory Rate 16 Blood Pressure 124/69 H BP Systolic 124 BP Diastolic 69 Pulse Ox 12/04/24 21:32 12/04/24 21:32 12/04/24 21:33 Temperature Temperature Source Pulse Rate 76 Respiratory Rate Blood Pressure 126/75 H BP Systolic 126 BP Diastolic 75 Pulse Ox 98 12/04/24 21:33 12/04/24 21:37 12/04/24 21:37 Temperature Temperature Source Pulse Rate 74 81 Respiratory Rate Blood Pressure BP Systolic BP Diastolic Pulse Ox 97 12/04/24 21:37 12/04/24 21:38 12/04/24 21:38 Temperature Temperature Source Pulse Rate 78 Respiratory Rate 16 Blood Pressure 124/67 H BP Systolic 124 BP Diastolic 67 Pulse Ox 12/04/24 21:42 12/04/24 21:42 12/04/24 21:43 Temperature Temperature Source Pulse Rate 86 Respiratory Rate Blood Pressure 116/65 BP Systolic 116 BP Diastolic 65 Pulse Ox 99 12/04/24 21:43 12/04/24 21:47 12/04/24 21:47 Temperature Temperature Source Pulse Rate 82 83 Respiratory Rate Blood Pressure 125/66 H BP Systolic 125 BP Diastolic 66 Pulse Ox 12/04/24 21:47 12/04/24 23:42 12/04/24 23:42 Temperature Temperature Source Pulse Rate 92 Respiratory Rate Blood Pressure 139/82 H BP Systolic 139 BP Diastolic 82 Pulse Ox 98 12/04/24 23:42 12/04/24 23:42 12/04/24 23:42 Temperature 97.6 F L Temperature Source Oral Pulse Rate Respiratory Rate 16 Blood Pressure BP Systolic BP Diastolic Pulse Ox Weight Weight: 177 lb Body Mass Index (BMI) 28.5 Physical Exam Const alert, oriented x3, no apparent distress and healthy appearing HEENT normocephalic and moist oral mucous membranes Head and Scalp: atraumatic Neck full ROM, no lymphadenopathy, supple and thyroid normal General: trachea midline Lymph Lymphatic: no lymphadenopathy noted Chest inspection of chest normal Resp normal respiratory effort Cardio regular rate GI soft to palpation and non-tender GI Narrative: gravid Inspection: gravid external exam normal Manual OB Exam: estimated gestational size appropriate, presentation cephalic, dilated, effaced and station Extremity normal to inspection General Extremity: Negative for edema Skin no rashes or lesions noted Neuro no focal motor deficits and deep tendon reflexes 2+ bilaterally Motor Exam: strength 5/5 throughout and clonus absent Psych mental status grossly normal Labs Labs Labs: Blood Type O POSITIVE Antibody Screen NEGATIVE Hct, (37-47) 34.7 % L Hgb, (12.0-15.0) 11.7 g/dL L Obstetrics Ultrasound Syphilis Total Ab, (Nonreactive) Nonreactive Rubella IgG Antibody, (Nonreactive) REAC Hep Bs Antigen, (Nonreactive) Nonreactive Hepatitis C Antibody, (Nonreactive) Nonreactive Hepatitis C Ab (EIA), (0.0-0.9) <0.1 s/co ratio Chlamydia DNA (DILCIA), (Negative) Negative N.gonorrhoeae DNA (DILCIA), (Negative) Negative HIV 1&2 Antibody, (Nonreactive) Nonreactive Glucose 1 Hr 50 gm, (70-140) 78 mg/dL Rhogam given: No Miscellaneous Test Assessment & Plan (1) Abnormal genetic test during : COMMENT: NIPT XYY, discussed genetic counseling and offered MFM referral, had anatomy scan and WNL. declined genetic counseling visit. ANC worksheet sent, need to ask peds when genetic testing is done after . ordered growth US 32 and 26 weeks, and plan weekly NSTs from 36 weeks on (2) Missed with demise before 20 completed weeks of gestation: COMMENT: H/O D&C 09/2023 with (3) Hypothyroid: QUALIFIERS: Hypothyroidism type: acquired Qualified Code(s): E03.9 - Hypothyroidism, unspecified COMMENT: Levothyroxine 112mcg 88mcg-repeat labs 08/23 (4) Supervision of high-risk : QUALIFIERS: Trimester: third trimester Qualified Code(s): O09.93 - Supervision of high risk , unspecified, third trimester COMMENT: PRR , CODY 12/29 boy PC: Christian Hein Kynzie, Dawson BF: Sulaiman (5) : QUALIFIERS: Weeks of gestation: 36 weeks Qualified Code(s): Z3A.36 - 36 weeks gestation of COMMENT: NIPT w gender & carrier- undecided (6) Abnormal TSH: COMMENT: need free T4 now. If normal, repeat TSH and Free T4 in 3 months (7) Oligohydramnios in third trimester: PLAN: Plan Patient presents IOL, plan management for with pit fb. Pain management: plans epidural. GBS pos pcn. Management of any complications: oligo I have reviewed the [facility] and made any clinically relevant updates. 12/04/242358 <Electronically signed by Vera Love MD> Cosigner Signature (if applicable): CC: Dr. Mary Nunn MD; Dr. Vera Love MD~ Signed [facility] Work Phone: 1([phone]) 706-279510-09-2025 Progress note [facility] Medical Records Department [address] [place] [address] Progress Note 12/04/242358 MR#: [id number] Acct: [id number] Name: VESTA HERNANDEZ Rep #:[id number] : 1995 29 From: Vera bowen MD PCP: Dr. 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 Mary Nunn MD Status:ADM IN Location: [place] [id number] HPI - General General Date of Admission: 12/04/24 HPI Narrative VESTA HERNANDEZ, is a 29 F who presents for IOL secondary to oligo. no vb lof admits good fm noregular ctx Maternal Data Information CODY Calculator Estimated Delivery Date Method Current WG Current Estimate 12/29/24 LMP (Certain) 36w 3d Other Estimates 12/26/24 Ultrasound #1 36w 6d PFSH PFSH Medical History Missed Kidney stone Alcohol use Low iron Migraine headache Blackout History of echocardiogram (spontaneous vaginal delivery) Home Medications ?Medication ?Instructions ?Recorded ?Last Taken ?Type levothyroxine 88 mcg tablet 88 mcg PO QDAY thyroid #60 tabs 07/26/24 12/04/24 Rx [id number] 120 mcg-dha 25 2 tab PO DAILY pregn dionne 08/09/24 12/03/24 History mg-herb no.293 66.7 mg chew tablet (Alive Premium ) valacyclovir 1 gram tablet 1,000 mg PO BID PRN at onse t of 08/09/24 Unknown History (Valtrex) cold sore Allergy/AdvReac Type Severity Reaction Status Date / Time No Known Allergies Allergy Verified 12/04/24 15:54 Family History Father Cancer, Onset Age: 57 Prostate ca Hypertension Grandfather Cancer, Onset Age: 70 Maternal Prostate Cancer Grandmother COPD (chronic obstructive pulmonary disease) Maternal Mother Hypertension Sister Fatty liver due to alcoholism Unknown Thyroid disorder Aunt Thyroid disorder Surgical History H/O dilation and curettage History of cystoscopy S/P foot surgery, right History of laparoscopic appendectomy (~07/19/19) Social History adopted: No household members: significant other and children housing: house number of children: 4 current occupational status: unemployed current occupation: [employer] pets and animals: No history of recent [...] 5-6 times per week duration: 30-45 minutes/day andie/yarsani: None seatbelt use: always do you feel [...] Lgth Anesthesia Del Locatn Provider FOB 03/23/14 Kamrehana 40 live - full term 8#1oz Female epidural [facility] 03/03/18 Christian 39 live - full term 8#13oz Male epid ural [facility] Dr.Weeman Hilario 10/06/19 Skip 38 live - full term 6#3oz Female epid ural [facility] Pj Hilario 05/23/21 Neville 38 live - full term 8#5oz Male epidu ral [facility] Suzanne Hilario 10/16/23 D&C Visit Details Expected Delivery Route/Plan Labor Preferences- CB/BF classes: no labor support person: Sulaiman labor intervention preferences: [] pain management options preferred: epidural cut cord/dad catch: cord : yes PP control planned: [] discussed possible routes of delivery and associated risks: [] special requests: [] Plans Covid status: [] Flu vaccine: [] Tdap vaccine: given Rhogam: na LARC form signed: yes Problem list reviewed and updated with the most current plan of care details and appropriate ordersplaced. Relevant counseling for the gestational age provided. Continue routine care and follow up unless otherwise noted in visit notes/problem list details OB Flowsheet Initial Weight: 163 lb Date -?-?-?-?-?-?-?-?-?-?-?-?- EGA Weight BP Urine Prot -?-?-?-?-?-?-?-?-?-?-?-?- Glucose FHR FuHt Pres Dilation -?--?-?-?-?-?-?-?-?-?-?-?- Effaced St Visit Note 05/30/24 -?-?-?-?-?-?-?-?-?-?-?-?- 9w [...] views now completed- pending report. no vb/cramping. 09/17/24 -?-?-?--?-?-?-?-?-?-?-?-?- 25w 2d 163 lb 8 oz (+8 oz) 119/81 Negative -?-?-?-?-?-?-?-?-?-?-?-?- Negative 145 25 -?-?-?-?-?-?-?-?-?-?-?-?- SM- no vb lof go od fm no regular ctx 10/16/24 -?-?-?-?-?-?-?-?-?-?-?-?- 29w 3d 168 lb 8 oz (+5 lb 8 oz) 124/72 Negative -?-?-?-?-?-?-?-?-?-?-?-?- Negative 160 29 -?-?-?-?-?-?-?-?-?-?-?-?- -No VB, LOF. G ood FM Larc, tdap. 28 wk labs pending 10/31/24 -?-?-?-?-?-?-?-?-?-?-?-?- 31w 4d 170 lb (+7 lb) 130/78 Negative -?-?-?-?-?-?-?-?-?-?-?-?- Negative 155 31 -?-?-?-?-?-?-?-?-?-?-?-?- SM- no vb lof go od fm no reuglar ctx 11/12/24 -?-?-?-?-?-?-?-?-?-?-?-?- 33w 2d 172 lb (+9 lb) 136/88 Negative -?-?-?-?-?-?-?-?-?-?-?-?- Negative 140 33 -?-?-?-?-?-?-?-?-?-?-?-?- KW- no vb/lof/ct x. good fm. thyroid labs at next appt. Growth us and NSTs at 36 weeks. 11/25/24 -?-?-?-?-?-?-?-?--?-?-?-?- 35w 1d 174 lb 6 oz (+11 lb 6 oz) 123/83 Negative -?-?-?-?-?-?-?-?-?-?-?-?- Negative 142 35 -?-?-?-?-?-?-?-?-?-?-?-?- MH-No VB, LOF. G ood FM. Thyroid labs today as did not do last visit. 12/02/24 -?-?-?-?-?-?-?-?-?-?-?-?- 36w 1d 175 lb 2 oz (+12 lb 2 oz) 124/84 Negative -?-?-?-?-?-?-?-?-?-?-?-?- Negative 140 36 34 2.5 -?-?-?-?-?-?-?-?-?-?-?-?- 40 -3 KW- no vb/ lof/ctx. good fm. has 36 week growth US scheduled. GBS today. NST FHR Rate Baby A Baseline: 130 Variability:: Moderate Accelerations:: 15 x 15 Decelerations:: None NST Reactive:: Yes FHR Category:: Category I Uterine Activity:: irregular ROS Constitutional Constitutional: Reports systems reviewed and no addt'l complaints, except as documented Eyes Eyes: Denies change in vision ENT HEENT: Reports systems reviewed and no addt'l complaints, except as documented; Denies headache(s) Cardiovascular Cardiovascular: Reports systems reviewed and no addt'l complaints, except as documented; Denies chest pain or dyspnea Respiratory/Chest Respiratory/Chest: Reports systems reviewed and no addt'l complaints, except as documented Gastrointestinal Gastrointestinal: Reports systems reviewed and no addt'l complaints, except as documented; Denies abdominal pain Genitourinary Genitourinary: Reports systems reviewed and no addt'l complaints, except as documented, contractions Details: present (irregular) and movement Details: present; Denies dysuria or genital lesions Musculoskeletal Musculoskeletal: Reports systems reviewed and no addt'l complaints, except as documented Neurologic Neurologic: Reports systems reviewed and no addt'l complaints, except as documented Endocrine Endocrinology: Reports systems reviewed and no addt'l complaints, except as documented Vital Signs Vital Signs Vital Signs: 12/04/24 13:41 12/04/24 13:41 12/04/24 13:41 Temperature Temperature Source Pulse Rate 94 Respiratory Rate Blood Pressure 157/90 H BP Systolic 157 BP Diastolic 90 Pulse Ox 100 12/04/24 13:58 12/04/24 13:58 12/04/24 13:58 Temperature Temperature Source Oral Pulse Rate 90 Respiratory Rate Blood Pressure 128/89 H BP Systolic 128 BP Diastolic 89 Pulse Ox 12/04/24 13:58 12/04/24 13:58 12/04/24 13:58 Temperature 98.4 F Temperature Source Pulse Rate Respiratory Rate 16 Blood Pressure BP Systolic BP Diastolic Pulse Ox 98 12/04/24 15:56 12/04/24 15:56 12/04/24 15:56 Temperature Temperature Source Pulse Rate 102 H Respiratory Rate 17 Blood Pressure 132/90 H BP Systolic 132 BP Diastolic 90 Pulse Ox 12/04/24 15:56 12/04/24 17:00 12/04/24 17:00 Temperature 98.6 F Temperature Source Pulse Rate 93 Respiratory Rate Blood Pressure 133/91 H BP Systolic 133 BP Diastolic 91 Pulse Ox 12/04/24 17:00 12/04/24 18:01 12/04/24 18:01 Temperature Temperature Source Pulse Rate 93 Respiratory Rate 17 Blood Pressure 135/87 H BP Systolic 135 BP Diastolic 87 Pulse Ox 12/04/24 18:01 12/04/24 18:01 12/04/24 18:46 Temperature 98.1 F Temperature Source Pulse Rate Respiratory Rate 17 Blood Pressure 138/88 H BP Systolic 138 BP Diastolic 88 Pulse Ox 12/04/24 18:46 12/04/24 18:46 12/04/24 18:46 Temperature 98.1 F Temperature Source Pulse Rate 89 Respiratory Rate 17 Blood Pressure BP Systolic BP Diastolic Pulse Ox 12/04/24 19:13 12/04/24 19:13 12/04/24 19:13 Temperature Temperature Source Oral Pulse Rate 89 Respiratory Rate 16 Blood Pressure BP Systolic BP Diastolic Pulse Ox 12/04/24 19:13 12/04/24 19:13 12/04/24 19:14 Temperature 98.0 F Temperature Source Pulse Rate Respiratory Rate Blood Pressure 136/82 H BP Systolic 136 BP Diastolic 82 Pulse Ox 99 12/04/24 19:14 12/04/24 20:16 12/04/24 20:16 Temperature Temperature Source Pulse Rate 86 93 Respiratory Rate Blood Pressure 141/79 H BP Systolic 141 BP Diastolic 79 Pulse Ox 12/04/24 20:52 12/04/24 20:52 12/04/24 20:52 Temperature Temperature Source Pulse Rate 101 H Respiratory Rate Blood Pressure 137/93 H BP Systolic 137 BP Diastolic 93 Pulse Ox 100 12/04/24 20:57 12/04/24 20:57 12/04/24 20:57 Temperature Temperature Source Pulse Rate 108 H Respiratory Rate Blood Pressure 139/89 H BP Systolic 139 BP Diastolic 89 Pulse Ox 99 12/04/24 20:57 12/04/24 21:02 12/04/24 21:02 Temperature Temperature Source Pulse Rate 116 H Respiratory Rate 16 Blood Pressure 150/96 H BP Systolic 150 BP Diastolic 96 Pulse Ox 12/04/24 21:02 12/04/24 21:07 12/04/24 21:07 Temperature Temperature Source Pulse Rate 101 H Respiratory Rate Blood Pressure 144/83 H BP Systolic 144 BP Diastolic 83 Pulse Ox 99 12/04/24 21:07 12/04/24 21:12 12/04/24 21:12 Temperature Temperature Source Pulse Rate 85 Respiratory Rate Blood Pressure BP Systolic BP Diastolic Pulse Ox 98 98 12/04/24 21:13 12/04/24 21:13 12/04/24 21:16 Temperature Temperature Source Pulse Rate 85 Respiratory Rate 16 Blood Pressure 140/80 H BP Systolic 140 BP Diastolic 80 Pulse Ox 12/04/24 21:17 12/04/24 21:17 12/04/24 21:17 Temperature Temperature Source Pulse Rate 84 Respiratory Rate Blood Pressure 131/87 H BP Systolic 131 BP Diastolic 87 Pulse Ox 97 12/04/24 21:20 12/04/24 21:20 12/04/24 21:22 Temperature 98.2 F Temperature Source Oral Pulse Rate Respiratory Rate Blood Pressure 121/72 H BP Systolic 121 BP Diastolic 72 Pulse Ox 12/04/24 21:22 12/04/24 21:22 12/04/24 21:22 Temperature Temperature Source Pulse Rate 88 Respiratory Rate 16 Blood Pressure BP Systolic BP Diastolic Pulse Ox 97 12/04/24 21:27 12/04/24 21:27 12/04/24 21:27 Temperature Temperature Source Pulse Rate 76 Respiratory Rate Blood Pressure 126/72 H BP Systolic 126 BP Diastolic 72 Pulse Ox 98 12/04/24 21:27 12/04/24 21:29 12/04/24 21:29 Temperature Temperature Source Pulse Rate 81 Respiratory Rate 16 Blood Pressure 124/69 H BP Systolic 124 BP Diastolic 69 Pulse Ox 12/04/24 21:32 12/04/24 21:32 12/04/24 21:33 Temperature Temperature Source Pulse Rate 76 Respiratory Rate Blood Pressure 126/75 H BP Systolic 126 BP Diastolic 75 Pulse Ox 98 12/04/24 21:33 12/04/24 21:37 12/04/24 21:37 Temperature Temperature Source Pulse Rate 74 81 Respiratory Rate Blood Pressure BP Systolic BP Diastolic Pulse Ox 97 12/04/24 21:37 12/04/24 21:38 12/04/24 21:38 Temperature Temperature Source Pulse Rate 78 Respiratory Rate 16 Blood Pressure 124/67 H BP Systolic 124 BP Diastolic 67 Pulse Ox 12/04/24 21:42 12/04/24 21:42 12/04/24 21:43 Temperature Temperature Source Pulse Rate 86 Respiratory Rate Blood Pressure 116/65 BP Systolic 116 BP Diastolic 65 Pulse Ox 99 12/04/24 21:43 12/04/24 21:47 12/04/24 21:47 Temperature Temperature Source Pulse Rate 82 83 Respiratory Rate Blood Pressure 125/66 H BP Systolic 125 BP Diastolic 66 Pulse Ox 12/04/24 21:47 12/04/24 23:42 12/04/24 23:42 Temperature Temperature Source Pulse Rate 92 Respiratory Rate Blood Pressure 139/82 H BP Systolic 139 BP Diastolic 82 Pulse Ox 98 12/04/24 23:42 12/04/24 23:42 12/04/24 23:42 Temperature 97.6 F L Temperature Source Oral Pulse Rate Respiratory Rate 16 Blood Pressure BP Systolic BP Diastolic Pulse Ox Weight Weight: 177 lb Body Mass Index (BMI) 28.5 Physical Exam Const alert, oriented x3, no apparent distress and healthy appearing HEENT normocephalic and moist oral mucous membranes Head and Scalp: atraumatic Neck full ROM, no lymphadenopathy, supple and thyroid normal General: trachea midline Lymph Lymphatic: no lymphadenopathy noted Chest inspection of chest normal Resp normal respiratory effort Cardio regular rate GI soft to palpation and non-tender GI Narrative: gravid Inspection: gravid external exam normal Manual OB Exam: estimated gestational size appropriate, presentation cephalic, dilated, effaced and station Extremity normal to inspection General Extremity: Negative for edema Skin no rashes or lesions noted Neuro no focal motor deficits and deep tendon reflexes 2+ bilaterally Motor Exam: strength 5/5 throughout and clonus absent Psych mental status grossly normal Labs Labs Labs: Blood Type O POSITIVE Antibody Screen NEGATIVE Hct, (37-47) 34.7 % L Hgb, (12.0-15.0) 11.7 g/dL L Obstetrics Ultrasound Syphilis Total Ab, (Nonreactive) Nonreactive Rubella IgG Antibody, (Nonreactive) REAC Hep Bs Antigen, (Nonreactive) Nonreactive Hepatitis C Antibody, (Nonreactive) Nonreactive Hepatitis C Ab (EIA), (0.0-0.9) <0.1 s/co ratio Chlamydia DNA (DILCIA), (Negative) Negative N.gonorrhoeae DNA (DILCIA), (Negative) Negative HIV 1&2 Antibody, (Nonreactive) Nonreactive Glucose 1 Hr 50 gm, (70-140) 78 mg/dL Rhogam given: No Miscellaneous Test Assessment & Plan (1) Abnormal genetic test during : COMMENT: NIPT XYY, discussed genetic counseling and offered MFM referral, had anatomy scan and WNL.declined genetic counseling visit. ANC worksheet sent, need to ask peds when genetic testing is done after . ordered growth US 32 and 26 weeks, and plan weekly NSTs from 36 weeks on (2) Missed with demise before 20 completed weeks of gestation: COMMENT: H/O D&C 09/2023 with SM (3) Hypothyroid: QUALIFIERS: Hypothyroidism type: acquired Qualified Code(s): E03.9 - Hypothyroidism, unspecified COMMENT: Levothyroxine 112mcg 88mcg-repeat labs 08/23 (4) Supervision of high-risk : QUALIFIERS: Trimester: third trimester Qualified Code(s): O09.93 - Supervision of high risk , unspecified, third trimester COMMENT: PRR , CODY 12/29 boy PC: Christian Hein Kynzie, Dawson BF: Sulaiman (5) : QUALIFIERS: Weeks of gestation: 36 weeks Qualified Code(s): Z3A.36 - 36 weeks gestation of COMMENT: NIPT w gender & carrier- undecided (6) Abnormal TSH: COMMENT: need free T4 now. If normal, repeat TSH and Free T4 in 3 months (7) Oligohydramnios in third trimester: PLAN: Plan Patient presents IOL, plan management for with pit fb. Pain management: plans epidural. GBS pos pcn. Management of any complications: oligo I have reviewed the [facility] and made any clinically relevant updates. 12/04/24 7310 Cosigner Signature (if applicable): CC: Dr. Mary Nunn MD; Dr. eVra Love MD~ Signed [facility]10-08-2025 Radiology Diagnostic study note [facility] Imaging Services [address] [place] [address] OB Limited (No Biometrics) MR#: [id number] Acct: [id number] Name: VESTA HERNANDEZ Rep #: [id number] : 1995 F 29 From: Ramírez Woods MD PCP: Dr. Mary Nunn MD Status: REG CLI Study:OB Limited (No Biometrics) Date of Exam : 12/04/24 Exam# [id number] Ordering Dr: Vera Reed MD PROCEDURE: OB LIMITED (NO BIOMETRICS) N/A REASON FOR EXAM: ES TECHNIQUE: Procedure Code: USOBL Modality: US Procedure: OB LIMITED (NO BIOMETRICS) COMPARISON: Prior study dated November 18, 2004. FINDINGS Number: 1 Position: Vertex Placental Position: Anterior and not low-lying Placental Abnormalities: No evidence of previa. ESTIMATED GESTATIONAL AGE: Baseline: 36 weeks and 3 days ESTIMATED DATE OF DELIVERY: Baseline: December 29, 2024 BIOPHYSICAL ASSESSMENT: Amniotic Fluid Volume: 2.8 cm Amniotic Fluid Index: 4.8 cm (8-24 cm normal range) Cardiac Motion: 143 beats per minute (average) Trunk and Limb Motion: Present. US/OB Limited (No Biometrics) IMPRESSION: Decreased amniotic fluid. The results were communicated to the attending physician. Reading Location: [id number] CC: Dr. Mary Nunn MD; Dr. Vera Love MD ~ Personal Lines Underwriter: Signed [facility]10-06-2025 [facility] [address] [place] [address], [address] [place] [address] OFFICE VISIT Date of Service: 12/02/24 MR#: [id number] Acct: [id number] Name: VESTA HERNANDEZ Rep #: [id number] : 1995 Provider: FRANDY Dudley Age/Sex: 29/F Location: [facility] Status: Signed with Addenda ADDENDUM by FRANDY Dudley on 12/02/24 at 1405 Office Procedure Documentation entered by America Dudley CNM 12/02/24 14:05: Non-stress Test Non-Stress Test Indications for Monitoring: Yes other (abnormal genetic screening ) Heart Rate Baseline: 140 Heart Rate Variability: moderate Movement: Present Heart Rate Accelerations: Present Decelerations: Absent Contractions: Absent Impression: Yes Reactive Non-Stress Test 12/02/24 1405 s CNM> Date _ America Dudley CNM cc: ~* Signed Intake Vital Signs 10/31/24 11:10 11/25/24 10:24 12/02/24 13:19 Height 5 ft 6 in 5 ft 6 in 5 ft 6 in Weight: 175 lb 2 oz BMI 28.3 BP 124/84 H Intake Visit Reasons: 36wk ob/nst Chief Complaint: 36wk ob/nst K 9 Police Officer Required: No Is patient in pain?: No Allergies No Known Allergies Allergy (Verified 12/02/24 13:25) Medications ?Medication ?Instructions ?Recorded ?Confirmed ?Type levothyroxine 88 mcg tablet 88 mcg PO QDAY #60 tabs 12/02/24 Rx [id number]-mpcfo 120 mcg-dha 25 2 tab PO DAILY 08/0912/02/24 History mg-herb no.293 66.7 mg chew tablet (Alive Premium ) valacyclovir 1 gram tablet 1,000 mg PO BID PRN at onse t of 08/09/24 12/02/24 History (Valtrex) cold sore Last Menstrual Period: [...] 4 current occupational status: unemployed current occupation: [employer] pets and animals: No history of [...] 5-6 times per week duration: 30-45 minutes/day andie/yarsani: None seatbelt use: always do you feel [...] live - full term 8#1oz Female epidural [facility] 03/03/18 [place] 39 live - full term 8#13oz Male epid ural [facility] Dr.Weeman Hilario 10/06/19 Skip 38 live - full term 6#3oz Female epid ural [facility] Pj Hilario 05/23/21 Jamin 38 live - full term 8#5oz Male epidu ral [facility] Suzanne Hilario 10/16/23 D&C HPI 36wk ob/nst Details: VESTA HERNANDEZ is a 29 year old who presents for routine OB visit. OB Visit CODY Calculator Estimated Delivery Date Method Current WG Current Estimate 12/29/24 LMP (Certain) 36w 1d Other Estimates 12/26/24 Ultrasound #1 36w 4d Expected Delivery Route/Plan Labor Preferences- CB/BF classes: no labor support person: Sulaiman labor intervention preferences: [] pain management options preferred: epidural cut cord/dad catch: cord : yes PP control planned: [] discussed possible routes of delivery and associated risks: [] special requests: [] Specific Issue/Plans Covid status: [] Flu vaccine: [] Tdap vaccine: given Rhogam: na LARC form signed: yes Problem list reviewed and updated with the [...] 163 lb 4 oz (+4 oz) 128/81 -?-?-?-?-?-?-?-?-?-?-?--?- 181 -?-?-?-?-?-?-?-?-?-?-?-?- KW- CRL cons wit h [...] views now completed- pending report. no vb/cramping. 09/17/24 -?-?-?-?-?-?-?-?-?-?-?-?- 25w 2d 163 lb 8 oz (+8 oz) 119/81 Negative -?-?-?-?-?-?-?-?-?-?-?-?- Negative 145 25 -?-?-?-?-?-?-?-?-?-?-?-?- SM- no vb lof go od fm no regular ctx 10/16/24 -?-?-?-?-?-?-?-?-?-?-?-?- 29w 3d 168 lb 8 oz (+5 lb 8 oz) 124/72 Negative -?-?-?-?-?-?-?-?-?-?-?-?- Negative 160 29 -?-?-?-?-?-?-?-?-?-?-?-?- MH-No VB, LOF. G ood FM Larc, tdap. 28 wk labs pending 10/31/24 -?-?-?-?-?-?-?-?-?-?-?-?- 31w 4d 170 lb (+7 lb) 130/78 Negative -?-?-?-?-?-?-?-?-?-?-?-?- Negative 155 31 -?-?-?-?-?-?-?-?-?-?-?-?- SM- no vb lof go od fm no reuglar ctx 11/12/24 -?-?-?-?-?-?-?--?-?-?-?-?- 33w 2d 172 lb (+9 lb) 136/88 Negative -?-?-?-?-?-?-?-?-?-?-?-?- Negative 140 33 -?-?-?-?-?-?-?-?-?-?-?-?- KW- no vb/lof/ct x. good fm. thyroid labs at next appt. Growth us and NSTs at 36 weeks. 11/25/24 -?-?-?-?-?-?-?-?-?-?-?-?- 35w 1d 174 lb 6 oz (+11 lb 6 oz) 123/83 Negative -?-?-?-?-?-?-?-?-?-?-?-?- Negative 142 35 -?-?-?-?-?-?-?-?-?-?-?-?- MH-No VB, LOF. G ood FM. Thyroid labs today as did not do last visit. 12/02/24 -?-?-?-?-?-?-?-?-?-?-?-?- 36w 1d 175 lb 2 oz (+12 lb 2 oz) 124/84 Negative -?-?-?-?-?-?-?-?-?-?-?-?- Negative 140 36 34 2.5 -?-?-?-?-?-?-?-?-?-?-?-?- 40 -3 KW- no vb/ lof/ctx. good fm. has 36 week growth US scheduled. GBS today. ACOG First Trimester First Trimester: Desire for [...] Management Plans, Labor support person(s), Immediate Larc, Circumcision preference, Signs and Symptoms of Preeclampsia, Infant Feeding No , [place] Education and Family Medical Leave or Disability Forms ROS Const Reports system reviewed and no additional complaints, except as documented Eyes Reports system reviewed and no additional complaints, except as documented ENT Reports system reviewed and no additional complaints, except as documented Card Reports system reviewed and no additional complaints, except as documented Resp Reports system reviewed and no additional complaints, except as documented GI Reports system reviewed and no additional complaints, except as documented, Denies nausea and Denies vomiting Reports system reviewed and no additional complaints, except as documented Musc Reports system reviewed and no additional complaints, except as documented Skin/Breast Reports system reviewed and no additional complaints, except as documented Neuro Yes system reviewed and no additional complaints, except as documented Psych Reports system reviewed and no additional complaints, except as documented Endo Reports system reviewed and no additional complaints, except as documented Russell/Lymph Reports system reviewed and no additional complaints, except as documented Aller/Immun Reports system reviewed and no additional complaints, except as documented Exam Const General: cooperative, healthy appearing and no acute distress Orientation: alert, awake and oriented x3 Neck Neck: normal visual inspection and full ROM Resp Effort & Inspection: normal respiratory effort, able to speak in complete sentences and symmetric chest movement GI Inspection: normal to inspection Palpation: soft and other Other: gravid Skin General: no rashes or lesions noted Neuro General: patient alert, patient awake and patient oriented x3 Cognition: normal cognition Speech: speech normal Gait: normal gait Motor: muscle tone normal throughout Extrem General: normal to inspection and full ROM Psych Appearance: grossly normal Mental Status: mental status grossly normal Mood: congruent mood Affect: normal affect Speech and Movement: speech and movement normal Attitude: cooperative Thought Process: normal Thought Content: normal Judgment: judgment good Results POC Urinalysis 2 Dip (Clinic) Office Urine Glucose Negative Last Edit by Fang Malik on 12/02/24 13:32 Office Urine Protein Negative Last Edit by Fang Malik on 12/02/24 13:32 Coding Level of Care Code Off vis,est,level 3 Diagnoses ES (amniotic fluid index) borderline low O28.8 Missed with demise before 20 completed weeks of gestation O02.1 Abnormal genetic test during O28.5 Acquired hypothyroidism E03.9 Hypothyroidism type: acquired Supervision of high risk in third trimester O Trimester: third trimester 36 weeks gestation of Z3A.36 Weeks of gestation: 36 weeks Abnormal TSH R79.89 Assessment and Plan Assessment and Plan (1) ES (amniotic fluid index) borderline low: Status: Acute (2) Missed with demise before 20 completed weeks of gestation: Status: Acute Comment: H/O D&C 09/2023 with (3) Abnormal genetic test during : Status: Acute Comment: NIPT XYY, discussed genetic counseling and offered MFM referral, had anatomy scan and WNL. declinedgenetic counseling visit. ANC worksheet sent, need to ask peds when genetic testing is done after . ordered growth US 32 and 26 weeks, and plan weekly NSTs from 36 weeks on (4) Hypothyroid: Status: Chronic Qualifiers: Hypothyroidism type: acquired Qualified Code(s): E03.9 - Hypothyroidism, unspecified Comment: Levothyroxine 112mcg 88mcg-repeat labs 08/23 (5) Supervision of high-risk : Status: Acute Qualifiers: Trimester: third trimester Qualified Code(s): O.93 - Supervision of high risk , unspecified, third trimester Comment: PRR , CODY 12/29 boy PC: Christian Hein Kynzie, Dawson BF: Sulaiman (6) : Status: Acute Qualifiers: Weeks of gestation: 36 weeks Qualified Code(s): Z3A.36 - 36 weeks gestation of Comment: NIPT w gender & carrier- undecided (7) Abnormal TSH: Status: Acute Comment: need free T4 now. If normal, repeat TSH and Free T4 in 3 months Orders: Orders POC Urinalysis 2 Dip (Clinic) Today OB NST Today O28.5 - Abnormal chromosomal and genetic finding on screening of mother (ROM) Rupture Of Membranes Today O09.93 - Supervision of high risk , unspecified, third trimester, O28.8 - Other abnormal findings on screening of mother, Z3A.36 - 36 weeks gestation of Culture, Group B Streptococcus Today O09.93 - Supervision of high risk , unspecified, third trimester, Z3A.36 - 36 weeks gestation of Plan Details Additional Comments: ACOG trimester education reviewed and updated. see problem list details for updated plan management information and see below for orders placed atthis visit. [place] appropriate handout given. 12/02/24 1403 s HOWARDM> Date _ America Dudley CNM Cosigner Signature: Date (if applicable) CC: ~ [facility]10-06-2025 Progress note Author America Dudley [facility] Services Note Date/Time December 02, 2024 2: 05pm [facility] [address] [place] [address], [address] [place] [address] OFFICE VISIT Date of Service: 12/02/24 MR#: [id number] Acct: [id number] Name: VESTA HERNANDEZ Rep #: [id number] : 1995 Provider: FRANDY Dudley Age/Sex: 29/F Location: [facility] [place] Status: Signed with Addenda ADDENDUM by FRANDY Dudley on 12/02/24 at 1405 Office Procedure Documentation entered by America Dudley CNM 12/02/24 14:05: Non-stress Test Non-Stress Test Indications for Monitoring: Yes other (abnormal genetic screening ) Heart Rate Baseline: 140 Heart Rate Variability: moderate Movement: Present Heart Rate Accelerations: Present Decelerations: Absent Contractions: Absent Impression: Yes Reactive Non-Stress Test 12/02/24 1405 <Electronically signed by America selby CNM> Date _ America Dudley CNM cc: ~* Signed Intake Vital Signs 10/31/24 11:10 11/25/24 10:24 12/02/24 13:19 Height 5 ft 6 in 5 ft 6 in 5 ft 6 in Weight: 175 lb 2 oz BMI 28.3 BP 124/84 H Intake Visit Reasons: 36wk ob/nst Chief Complaint: 36wk ob/nst K 9 Police Officer Required: No Is patient in pain?: No Allergies No Known Allergies Allergy (Verified 12/02/24 13:25) Medications ?Medication ?Instructions ?Recorded ?Confirmed ?Type levothyroxine 88 mcg tablet 88 mcg PO QDAY #60 tabs 12/02/24 Rx epxhwvqb-vzn-jpaue 120 mcg-dha 25 2 tab PO DAILY 08/0912/02/24 History mg-herb no.293 66.7 mg chew tablet (Alive Premium ) valacyclovir 1 gram tablet 1,000 mg PO BID PRN at onse t of 08/09/24 12/02/24 History (Valtrex) cold sore Last Menstrual Period: [...] 4 current occupational status: unemployed current occupation: [employer] pets and animals: No history of [...] 5-6 times per week duration: 30-45 minutes/day andie/yarsani: None seatbelt use: always do you feel [...] live - full term 8#1oz Female epidural [facility] [facility] 03/03/18 [place] 39 live - full term 8#13oz Male epid ural [facility] Dr.Weeman Hilario 10/06/19 [place] 38 live - full term 6#3oz Female epid ural [facility] Pj Hilario 05/23/21 [place] 38 live - full term 8#5oz Male epidu ral [facility] Suzanne Hilario 10/16/23 D&C HPI 36wk ob/nst Details: VESTA HERNANDEZ is a 29 year old who presents for routine OB visit. OB Visit CODY Calculator Estimated Delivery Date Method Current WG Current Estimate 12/29/24 LMP (Certain) 36w 1d Other Estimates 12/26/24 Ultrasound #1 36w 4d Expected Delivery Route/Plan Labor Preferences- CB/BF classes: no labor support person: Sulaiman labor intervention preferences: [] pain management options preferred: epidural cut cord/dad catch: cord : yes PP control planned: [] discussed possible routes of delivery and associated risks: [] special requests: [] Specific Issue/Plans Covid status: [] Flu vaccine: [] Tdap vaccine: given Rhogam: na LARC form signed: yes Problem list reviewed and updated with the [...] 163 lb 4 oz (+4 oz) 128/81 -?-?-?-?-?-?-?-?-?-?-?--?- 181 -?-?-?-?-?-?-?-?-?-?-?-?- KW- CRL cons wit h dates. unsure if wants NIPT-will get labs next week 06/27/24 -?-?-?-?-?-?-?-?-?-?-?-?- 13w 4d 155 lb 4 oz (-7 lb 12 oz) 119/83 Negative -?-?-?-?-?-?-?-?-?-?-?-?- Negative 166 -?-?-?-?-?-?-?-?-?-?-?-?- KW- no vb/rukhsana koch. discussed XYY results. anatomy US ordered. KW- [...] views now completed- pending report. no vb/cramping. 09/17/24 -?-?-?-?-?-?-?-?-?-?-?-?- 25w 2d 163 lb 8 oz (+8 oz) 119/81 Negative -?-?-?-?-?-?-?-?-?-?-?-?- Negative 145 25 -?-?-?-?-?-?-?-?-?-?-?-?- SM- no vb lof go od fm no regular ctx 10/16/24 -?-?-?-?-?-?-?-?-?-?-?-?- 29w 3d 168 lb 8 oz (+5 lb 8 oz) 124/72 Negative -?-?-?-?-?-?-?-?-?-?-?-?- Negative 160 29 -?-?-?-?-?-?-?-?-?-?-?-?- MH-No VB, LOF. G ood FM Larc, tdap. 28 wk labs pending 10/31/24 -?-?-?-?-?-?-?-?-?-?-?-?- 31w 4d 170 lb (+7 lb) 130/78 Negative -?-?-?-?-?-?-?-?-?-?-?-?- Negative 155 31 -?-?-?-?-?-?-?-?-?-?-?-?- - no vb lof go od fm no reuglar ctx 11/12/24 -?-?-?-?-?-?-?--?-?-?-?-?- 33w 2d 172 lb (+9 lb) 136/88 Negative -?-?-?-?-?-?-?-?-?-?-?-?- Negative 140 33 -?-?-?-?-?-?-?-?-?-?-?-?- KW- no vb/lof/ct x. good fm. thyroid labs at next appt. Growth us and NSTs at 36 weeks. 11/25/24 -?-?-?-?-?-?-?-?-?-?-?-?- 35w 1d 174 lb 6 oz (+11 lb 6 oz) 123/83 Negative -?-?-?-?-?-?-?-?-?-?-?-?- Negative 142 35 -?-?-?-?-?-?-?-?-?-?-?-?- -No VB, LOF. G ood FM. Thyroid labs today as did not do last visit. 12/02/24 -?-?-?-?-?-?-?-?-?-?-?-?- 36w 1d 175 lb 2 oz (+12 lb 2 oz) 124/84 Negative -?-?-?-?-?-?-?-?-?-?-?-?- Negative 140 36 34 2.5 -?-?-?-?-?-?-?-?-?-?-?-?- 40 -3 KW- no vb/ lof/ctx. good fm. has 36 week growth US scheduled. GBS today. ACOG First Trimester First Trimester: Desire for [...] Management Plans, Labor support person(s), Immediate Larc, Circumcision preference, Signs and Symptoms of Preeclampsia, Feeding No , Education and Family Medical Leave or Disability Forms ROS Const Reports system reviewed and no additional complaints, except as documented Eyes Reports system reviewed and no additional complaints, except as documented ENT Reports system reviewed and no additional complaints, except as documented Card Reports system reviewed and no additional complaints, except as documented Resp Reports system reviewed and no additional complaints, except as documented GI Reports system reviewed and no additional complaints, except as documented, Denies nausea and Denies vomiting Reports system reviewed and no additional complaints, except as documented Musc Reports system reviewed and no additional complaints, except as documented Skin/Breast Reports system reviewed and no additional complaints, except as documented Neuro Yes system reviewed and no additional complaints, except as documented Psych Reports system reviewed and no additional complaints, except as documented Endo Reports system reviewed and no additional complaints, except as documented Russell/Lymph Reports system reviewed and no additional complaints, except as documented Aller/Immun Reports system reviewed and no additional complaints, except as documented Exam Const General: cooperative, healthy appearing and no acute distress Orientation: alert, awake and oriented x3 Neck Neck: normal visual inspection and full ROM Resp Effort & Inspection: normal respiratory effort, able to speak in complete sentences and symmetric chest movement GI Inspection: normal to inspection Palpation: soft and other Other: gravid Skin General: no rashes or lesions noted Neuro General: patient alert, patient awake and patient oriented x3 Cognition: normal cognition Speech: speech normal Gait: normal gait Motor: muscle tone normal throughout Extrem General: normal to inspection and full ROM Psych Appearance: grossly normal Mental Status: mental status grossly normal Mood: congruent mood Affect: normal affect Speech and Movement: speech and movement normal Attitude: cooperative Thought Process: normal Thought Content: normal Judgment: judgment good Results POC Urinalysis 2 Dip (Clinic) Office Urine Glucose Negative Last Edit by Fang Malik on 12/02/24 13:32 Office Urine Protein Negative Last Edit by Fang Malik on 12/02/24 13:32 Coding Level of Care Code Off vis,est,level 3 Diagnoses ES (amniotic fluid index) borderline low O28.8 Missed with demise before 20 completed weeks of gestation O02.1 Abnormal genetic test during O28.5 Acquired hypothyroidism E03.9 Hypothyroidism type: acquired Supervision of high risk in third trimester O. Trimester: third trimester 36 weeks gestation of Z3A.36 Weeks of gestation: 36 weeks Abnormal TSH R79.89 Assessment and Plan Assessment and Plan (1) ES (amniotic fluid index) borderline low: Status: Acute (2) Missed with demise before 20 completed weeks of gestation: Status: Acute Comment: H/O D&C 09/2023 with (3) Abnormal genetic test during : Status: Acute Comment: NIPT XYY, discussed genetic counseling and offered MFM referral, had anatomy scan and WNL. declined genetic counseling visit. ANC worksheet sent, need to ask peds when genetic testing is done after . ordered growth US 32 and 26 weeks, and plan weekly NSTs from 36 weeks on (4) Hypothyroid: Status: Chronic Qualifiers: Hypothyroidism type: acquired Qualified Code(s): E03.9 - Hypothyroidism, unspecified Comment: Levothyroxine 112mcg 88mcg-repeat labs 08/23 (5) Supervision of high-risk : Status: Acute Qualifiers: Trimester: third trimester Qualified Code(s): O09.93 - Supervision of high risk , unspecified, third trimester Comment: PRR , CODY 12/29 boy PC: Christian Hein Kynzie, Dawson BF: Sulaiman (6) : Status: Acute Qualifiers: Weeks of gestation: 36 weeks Qualified Code(s): Z3A.36 - 36 weeks gestation of Comment: NIPT w gender & carrier- undecided (7) Abnormal TSH: Status: Acute Comment: need free T4 now. If normal, repeat TSH and Free T4 in 3 months Orders: Orders POC Urinalysis 2 Dip (Clinic) Today OB NST Today O28.5 - Abnormal chromosomal and genetic finding on screening of mother (ROM) Rupture Of Membranes Today O09.93 - Supervision of high risk , unspecified, third trimester, O28.8 - Other abnormal findings on screening of mother, Z3A.36 - 36 weeks gestation of Culture, Group B Streptococcus Today O09.93 - Supervision of high risk , unspecified, third trimester, Z3A.36 - 36 weeks gestation of Plan Details Additional Comments: ACOG trimester education reviewed and updated. see problem list details for updated plan management information and see below for orders placed at this visit. [place] appropriate handout given. 12/02/24 7511 <Electronically signed by America selby CNM> Date _ America Dudley CNM Cosigner Signature: Date (if applicable) CC: ~ [facility] [employer] Work Phone: [phone] 140-453609-29-2025 [facility] [address], [address] [place] [id number] OFFICE VISIT Date of Service: 11/25/24 MR#: [id number] Acct: [id number] Name: VESTA HERNANDEZ Rep #: [id number] : 1995 Provider: TY De Leon Age/Sex: 29/F Location: [facility] [place] Status: Signed Intake Vital Signs 10/16/24 13:08 11/12/24 13:36 11/25/24 10:24 Height 5 ft 6 in 5 ft 6 in 5 ft 6 in Weight: 172 lb 174 lb 6 oz BMI 27.7 28.1 BP 136/88 H 123/83 H Intake Visit Reasons: 35wk ob Chief Complaint: 35 Week OB K 9 Police Officer Required: No Is patient in pain?: No Allergies No Known Allergies Allergy (Verified 11/25/24 10:25) Medications ?Medication ?Instructions ?Recorded ?Confirmed ?Type levothyroxine 88 mcg tablet 88 mcg PO QDAY #60 tabs 11/25/24 Rx qaruwzng-zij-mtdoz 120 mcg-dha 25 2 tab PO DAILY 08/0911/25/24 History mg-herb no.293 66.7 mg chew tablet (Alive Premium ) valacyclovir 1 gram tablet 1,000 mg PO BID PRN at onse t of 08/09/24 11/25/24 History (Valtrex) cold sore Last Menstrual Period: 03/24/24 Zika: Zika virus [...] 4 current occupational status: unemployed current occupation: [employer] pets and animals: No history of [...] 5-6 times per week duration: 30-45 minutes/day andie/yarsani: None seatbelt use: always do you feel [...] live - full term 8#1oz Female epidural [facility] 03/03/18 [place] 39 live - full term 8#13oz Male epid ural [facility] Dr.Weeman Hilario 10/06/19 [place] 38 live - full term 6#3oz Female epid ural [facility] Pj Hilario 05/23/21 [place] 38 live - full term 8#5oz Male epidu ral [facility] Suzanne Hilario 10/16/23 D&C HPI 35wk ob Details: VESTA HERNANDEZ is a 29 year old who presents for routine OB visit. OB Visit CODY Calculator Estimated Delivery Date Method Current WG Current Estimate 12/29/24 LMP (Certain) 35w 1d Other Estimates 12/26/24 Ultrasound #1 35w 4d Expected Delivery Route/Plan Labor Preferences- CB/BF classes: no labor support person: Sulaiman labor intervention preferences: [] pain management options preferred: epidural cut cord/dad catch: cord : yes PP control planned: [] discussed possible routes of delivery and associated risks: [] special requests: [] Specific Issue/Plans Covid status: [] Flu vaccine: [] Tdap vaccine: given Rhogam: na LARC form signed: yes Problem list reviewed and updated with the most current plan of care details and appropriate ordersplaced. Relevant counseling for the gestational age provided. Continue routine care and follow up unless otherwise noted in visit notes/problem list details Initial Weight: 163 lb Date -?-?-?-?-?-?-?-?-?-?-?-?- EGA Weight BP Urine Prot -?-?-?-?-?-?-?-?-?-?-?-?- Glucose FHR FuHt Pres Dilation -?-?--?-?-?-?-?-?-?-?-?-?- Effaced St Visit Note 05/30/24 -?-?-?-?-?-?-?-?-?-?-?-?- 9w [...] views now completed- pending report. no vb/cramping. 09/17/24 -?-?-?-?--?-?-?-?-?-?-?-?- 25w 2d 163 lb 8 oz (+8 oz) 119/81 Negative -?-?-?-?-?-?-?-?-?-?-?-?- Negative 145 25 -?-?-?-?-?-?-?-?-?-?-?-?- SM- no vb lof go od fm no regular ctx 10/16/24 -?-?-?-?-?-?-?-?-?-?-?-?- 29w 3d 168 lb 8 oz (+5 lb 8 oz) 124/72 Negative -?-?-?-?-?-?-?-?-?-?-?-?- Negative 160 29 -?-?-?-?-?-?-?-?-?-?-?-?- -No VB, LOF. G ood FM Larc, tdap. 28 wk labs pending 10/31/24 -?-?-?-?-?-?-?-?-?-?-?-?- 31w 4d 170 lb (+7 lb) 130/78 Negative -?-?-?-?-?-?-?-?-?-?-?-?- Negative 155 31 -?-?-?-?-?-?-?-?-?-?-?-?- SM- no vb lof go od fm no reuglar ctx 11/12/24 -?-?-?-?-?-?-?-?-?-?-?-?- 33w 2d 172 lb (+9 lb) 136/88 Negative -?-?-?-?-?-?-?-?-?-?-?-?- Negative 140 33 -?-?-?-?-?-?-?-?-?-?-?-?- KW- no vb/lof/ct x. good fm. thyroid labs at next appt. Growth us and NSTs at 36 weeks. 11/25/24 -?-?-?-?-?-?-?-?-?--?-?-?- 35w 1d 174 lb 6 oz (+11 lb 6 oz) 123/83 Negative -?-?-?-?-?-?-?-?-?-?-?-?- Negative 142 35 -?-?-?-?-?-?-?-?-?-?-?-?- MH-No VB, LOF. G ood FM. Thyroid labs today as did not do last visit. ACOG First Trimester First Trimester: Desire for [...] Management Plans, Labor support person(s), Immediate Larc, Circumcision preference, Signs and Symptoms of Preeclampsia, Feeding No , Education and Family Medical Leave or Disability Forms ROS Const Reports system reviewed and no additional complaints, except as documented GI Denies abdominal pain, Denies nausea and Denies vomiting Exam Const General: cooperative Nutritional Appearance: well nourished GI Palpation: soft, nontender and other (gravid) Results POC Urinalysis 2 Dip (Clinic) Office Urine Glucose Negative Last Edit by Marilee Helton on 11/25/24 10 :30 Office Urine Protein Negative Last Edit by Marilee Helton on 11/25/24 10 :30 Coding Level of Care Code Off vis,est,level 3 Diagnoses Supervision of high risk in third trimester O09.93 Trimester: third trimester 35 weeks gestation of Z3A.35 Weeks of gestation: 35 weeks Acquired hypothyroidism E03.9 Hypothyroidism type: acquired Missed with demise before 20 completed weeks of gestation O02.1 Abnormal genetic test during O28.5 ES (amniotic fluid index) borderline low O28.8 Abnormal TSH R79.89 Assessment and Plan Assessment and Plan (1) Supervision of high-risk : Status: Acute Qualifiers: Trimester: third trimester Qualified Code(s): O09.93 - Supervision of high risk , unspecified, third trimester Comment: PRR , CODY 12/29 boy PC: Christian Hein Kynzie, Dawson BF: Sulaiman (2) : Status: Acute Qualifiers: Weeks of gestation: 35 weeks Qualified Code(s): Z3A.35 - 35 weeks gestation of Comment: NIPT w gender & carrier- undecided (3) Hypothyroid: Status: Chronic Qualifiers: Hypothyroidism type: acquired Qualified Code(s): E03.9 - Hypothyroidism, unspecified Comment: Levothyroxine 112mcg 88mcg-repeat labs 08/23 (4) Missed with demise before 20 completed weeks of gestation: Status: Acute Comment: H/O D&C 09/2023 with SM (5) Abnormal genetic test during : Status: Acute Comment: NIPT XYY, discussed genetic counseling and offered MFM referral, had anatomy scan and WNL. declinedgenetic counseling visit. ANC worksheet sent, need to ask peds when genetic testing is done after . ordered growth US 32 and 26 weeks, and plan weekly NSTs from 36 weeks on (6) ES (amniotic fluid index) borderline low: Status: Acute (7) Abnormal TSH: Status: Acute Comment: need free T4 now. If normal, repeat TSH and Free T4 in 3 months Orders: Orders POC Urinalysis 2 Dip (Clinic) Today Plan problem list reviewed and updated for most current plan of care and appropriate orders placed. Relevant counseling for the gestational age appropriate provided and ACOG education checklist updated. Continue routine care and follow up. 11/25/24 1051 s LEGAL PROCESS SPECIALIST LEGAL PROCESS SPECIALIST-C> Date _ Grazyna Haley LEGAL PROCESS SPECIALIST LEGAL PROCESS SPECIALIST-C Cosigner Signature: Date (if applicable) CC: ~ [facility]09-22-2025 Radiology Diagnostic study note [facility] Imaging Services [address] [place] [address] OB Limited (No Biometrics) MR#: [id number] Acct: [id number] Name: VESTA HERNANDEZ Rep #: [id number] : 1995 F 29 From: Martinez Dinero MD PCP: Dr. Mary Nunn MD Status: REG CLI Study:OB Limited (No Biometrics) Date of Exam : 11/18/24 Exam# [id number] Ordering Dr: Vera Reed MD PROCEDURE: OB LIMITED (NO BIOMETRICS) 11/18/2024 REASON FOR EXAM: ES TECHNIQUE: Procedure Code: USOBL Modality: US Procedure: OB LIMITED (NO BIOMETRICS) COMPARISON: 11/11/2024. FINDINGS * position: Cephalic * cardiac activity: Present, 167 bpm *Cervical length: 3.5 cm, cervical os closed *Amniotic fluid: Maximal vertical pocket 6.2 cm, ES 13.4 cm (within normal limits) *Placenta: Fundal, anterior, not low-lying, grade 1 * age by LMP: 34 weeks 1 day *CODY by LMP: 12/29/2024 US/OB Limited (No Biometrics) IMPRESSION: Single live intrauterine in cephalic presentation at 34 weeks 1 day byLMP. Normal cardiac activity. Normal amniotic fluid volume (ES 13.4 cm). Placenta anterior/fundal, not low-lying, grade 1. Cervix measures 3.5 cm with closed os. Reading Location: [id number] CC: Dr. Mary uNnn MD; Dr. Vera Love MD ~ Personal Lines Underwriter: Signed [facility]09-16-2025 [facility] [address], [address] [place] [id number] OFFICE VISIT Date of Service: 11/12/24 MR#: [id number] Acct: [id number] Name: VESTA HERNANDEZ Rep #: [id number] : 1995 Provider: FRANDY Dudley Age/Sex: 29/F Location: [facility] [place] Status: Signed Intake Vital Signs 10/16/24 13:08 10/31/24 11:10 11/12/24 13:36 Height 5 ft 6 in 5 ft 6 in 5 ft 6 in Weight: 172 lb BMI 27.7 BP 136/88 H Intake Visit Reasons: 33wk ob Chief Complaint: 33wk OB K 9 Police Officer Required: No Is patient in pain?: No Allergies No Known Allergies Allergy (Verified 11/12/24 13:34) Medications ?Medication ?Instructions ?Recorded ?Confirmed ?Type levothyroxine 88 mcg tablet 88 mcg PO QDAY #60 tabs 11/12/24 Rx urpdxdjq-oza-nwxew 120 mcg-dha 25 2 tab PO DAILY 08/0911/12/24 History mg-herb no.293 66.7 mg chew tablet (Alive Premium ) valacyclovir 1 gram tablet 1,000 mg PO BID PRN at onse t of 08/09/24 11/12/24 History (Valtrex) cold sore Last Menstrual Period: [...] 4 current occupational status: unemployed current occupation: [employer] pets and animals: No history of [...] 5-6 times per week duration: 30-45 minutes/day andie/yarsani: None seatbelt use: always do you feel safe at home: Yes additional 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 Date Name GA/Weeks Outcome Route Bth Weight [facility] Melvina 40 live - full term 8#1oz Female epidural [facility] 03/03/18 [place] 39 live - full term 8#13oz Male epid ural [facility] Dr.Weeman Hilario 10/06/19 Skip 38 live - full term 6#3oz Female epid ural [facility] H Grgeory Hilario 05/23/21 [place] 38 live - full term 8#5oz Male epidu ral [facility] Suzanne Hilario 10/16/23 D&C HPI 33wk ob Details: VESTA HERNANDEZ is a 29 year old who presents for routine OB visit. OB Visit CODY Calculator Estimated Delivery Date Method Current WG Current Estimate 12/29/24 LMP (Certain) 33w 2d Other Estimates 12/26/24 Ultrasound #1 33w 5d Expected Delivery Route/Plan Labor Preferences- CB/BF classes: no labor support person: Sulaiman labor intervention preferences: [] pain management options preferred: epidural cut cord/dad catch: cord : yes PP control planned: [] discussed possible routes of delivery and associated risks: [] special requests: [] Specific Issue/Plans Covid status: [] Flu vaccine: [] Tdap vaccine: given Rhogam: na LARC form signed: yes Problem list reviewed and updated with the [...] having weight loss but eating appropriately. 07/24/24 -?-?-?-?-?--?-?-?-?-?-?-?- 17w 3d 157 lb 6 oz (-5 [...] views now completed- pending report. no vb/cramping. 09/17/24 -?-?-?-?-?-?-?-?-?-?-?-?- 25w 2d 163 lb 8 oz (+8 oz) 119/81 Negative -?-?-?--?-?-?-?-?-?-?-?-?- Negative 145 25 -?-?-?-?-?-?-?-?-?-?-?-?- SM- no vb lof go od fm no regular ctx 10/16/24 -?-?-?-?-?-?-?-?-?-?-?-?- 29w 3d 168 lb 8 oz (+5 lb 8 oz) 124/72 Negative -?-?-?-?-?-?-?-?-?-?-?-?- Negative 160 29 -?-?-?-?-?-?-?-?-?-?-?-?- MH-No VB, LOF. G ood FM Larc, tdap. 28 wk labs pending 10/31/24 -?-?-?-?-?-?-?-?-?-?-?-?- 31w 4d 170 lb (+7 lb) 130/78 Negative -?-?-?-?-?-?-?-?-?-?-?-?- Negative 155 31 -?-?-?-?-?-?-?-?-?-?-?-?- SM- no vb lof go od fm no reuglar ctx 11/12/24 -?-?-?-?-?-?-?-?-?-?-?-?- 33w 2d 172 lb (+9 lb) 136/88 Negative -?-?-?-?-?-?-?-?-?-?-?-?- Negative 140 33 -?-?-?-?-?-?-?-?-?-?-?-?- KW- no vb/lof/ct x. good fm. thyroid labs at next appt. Growth us and NSTs at 36 weeks. ACOG First Trimester First Trimester: Desire for , Alcohol, Tobacco Cessation, Illicit/Recreational Drug/Substance Use, Intimate Partner Violence, Barriers to care, Anticipated Course of Care, Use of Any medications, Sexual activity, Exercise, Dental Care, Sauna/Hot tub use, Seat Belt use, [facility], Travel, Indications for Ultrasound and Screening for Aneuploidy; Discussed Unstable Housing, Discussed Communication Barriers, Discussed Environmental/Work Hazards, Discussed Toxoplasmosis Precations and Discussed Second Trimester Second Trimester: Signs and Symptoms of Labor, Selecting a care provider, Reproductive Life Planning & Contreception, Care Planning, Depression/Anxiety and Intimate Partner Violence; Discussed Tobacco Cessation Third Trimester Third Trimester: Pain Management Plans, Labor support person(s), Immediate Larc, Circumcision preference, Signs and Symptoms of Preeclampsia, Feeding No , Education and Family Medical Leave or Disability Forms ROS Const Reports system reviewed and no additional complaints, except as documented Eyes Reports system reviewed and no additional complaints, except as documented ENT Reports system reviewed and no additional complaints, except as documented Card Reports system reviewed and no additional complaints, except as documented Resp Reports system reviewed and no additional complaints, except as documented GI Reports system reviewed and no additional complaints, except as documented, Denies nausea and Denies vomiting Reports system reviewed and no additional complaints, except as documented Musc Reports system reviewed and no additional complaints, except as documented Skin/Breast Reports system reviewed and no additional complaints, except as documented Neuro Yes system reviewed and no additional complaints, except as documented Psych Reports system reviewed and no additional complaints, except as documented Endo Reports system reviewed and no additional complaints, except as documented Russell/Lymph Reports system reviewed and no additional complaints, except as documented Aller/Immun Reports system reviewed and no additional complaints, except as documented Exam Const General: cooperative, healthy appearing and no acute distress Orientation: alert, awake and oriented x3 Neck Neck: normal visual inspection and full ROM Resp Effort & Inspection: normal respiratory effort, able to speak in complete sentences and symmetric chest movement GI Inspection: normal to inspection Palpation: soft and other Other: gravid Skin General: no rashes or lesions noted Neuro General: patient alert, patient awake and patient oriented x3 Cognition: normal cognition Speech: speech normal Gait: normal gait Motor: muscle tone normal throughout Extrem General: normal to inspection and full ROM Psych Appearance: grossly normal Mental Status: mental status grossly normal Mood: congruent mood Affect: normal affect Speech and Movement: speech and movement normal Attitude: cooperative Thought Process: normal Thought Content: normal Judgment: judgment good Results POC Urinalysis 2 Dip (Clinic) Office Urine Glucose Negative Last Edit by Fang Malik on 11/12/24 13:44 Office Urine Protein Negative Last Edit by Fang Malik on 11/12/24 13:44 Coding Level of Care Code Off vis,est,level 3 Diagnoses Abnormal genetic test during O28.5 Missed with demise before 20 completed weeks of gestation O02.1 Acquired hypothyroidism E03.9 Hypothyroidism type: acquired Supervision of high risk in third trimester O09.93 Trimester: third trimester 33 weeks gestation of Z3A.33 Weeks of gestation: 33 weeks Abnormal TSH R79.89 Assessment and Plan Assessment and Plan (1) Abnormal genetic test during : Status: Acute Comment: NIPT XYY, discussed genetic counseling and offered MFM referral, had anatomy scan and WNL. declinedgenetic counseling visit. ANC worksheet sent, need to ask peds when genetic testing is done after . ordered growth US 32 and 26 weeks, and plan weekly NSTs from 36 weeks on (2) Missed with demise before 20 completed weeks of gestation: Status: Acute Comment: H/O D&C 09/2023 with SM (3) Hypothyroid: Status: Chronic Qualifiers: Hypothyroidism type: acquired Qualified Code(s): E03.9 - Hypothyroidism, unspecified Comment: Levothyroxine 112mcg 88mcg-repeat labs 08/23 (4) Supervision of high-risk : Status: Acute Qualifiers: Trimester: third trimester Qualified Code(s): O09.93 - Supervision of high risk , unspecified, third trimester Comment: PRR , CODY 12/29 boy PC: Christian Hein Kynzie, Dawson BF: Sulaiman (5) : Status: Acute Qualifiers: Weeks of gestation: 33 weeks Qualified Code(s): Z3A.33 - 33 weeks gestation of Comment: NIPT w gender & carrier- undecided (6) Abnormal TSH: Status: Acute Comment: need free T4 now. If normal, repeat TSH and Free T4 in 3 months Orders: Orders POC Urinalysis 2 Dip (Clinic) Today Plan Details Additional Comments: ACOG trimester education reviewed and updated. see problem list details for updated plan management information and see below for orders placed atthis visit. GA appropriate handout given. 11/12/24 1354 s CNM> Date _ America Dudley CNM Cosigner Signature: Date (if applicable) CC: ~ [facility]09-15-2025 Radiology Diagnostic study note [facility] Imaging Services [address] [place], [place] [address] OB Limited With Biometrics MR#: [id number] Acct: [id number] Name: VESTA HERNANDEZ Rep #: [id number] : 1995 F 29 From: Ramírez Woods MD PCP: Dr. Mary Nunn MD Status: REG CLI Study:OB Limited With Biometrics Date of Exam : 11/11/24 Exam# [id number] Ordering Dr: Vera Reed MD PROCEDURE: OB LIMITED WITH BIOMETRICS 11/11/2024 REASON FOR EXAM: WELLBEING TECHNIQUE: Procedure Code: USOBGROWTH Modality: US Procedure: OB LIMITED WITH BIOMETRICS COMPARISON: None FINDINGS Number: 1 Position: Vertex Placental Position: Anterior and not low-lying. Placental Abnormalities: No evidence of previa. DIMENSIONS: Biparietal Diameter: 9 cm: 36 weeks and 3 days: 9 9 percentile/ Head Circumference: 32.5 cm: 36 weeks and 5 days: 94 percentile/ Abdominal Circumference: 32.3 cm: 36 weeks and 4 days: 92 percentile/ Femur Length: 6.4 cm: 33 weeks and 1 day: 38 percentile/ ESTIMATED WEIGHT: 2458 g plus/-364 g ESTIMATED WEIGHT PERCENTILE (24+ weeks): 82nd ESTIMATED GESTATIONAL AGE: Baseline: 33 weeks and 1 day By Ultrasound: 36 weeks and 1 day ESTIMATED DATE OF DELIVERY: Baseline: December 29, 2024 By Ultrasound: December 08, 2024 BIOPHYSICAL ASSESSMENT: Amniotic Fluid Volume: 3.6 cm Amniotic Fluid Index: 9.8 cm (8-24 cm normal range) Cardiac Motion: 140 beats per minute (average) Trunk and Limb Motion: Present. MATERNAL ANATOMY: Adnexa: Neither maternal ovary is successfully identified. US/OB Limited With Biometrics IMPRESSION: Single live intrauterine gestation with a mean gestational age of 36 weeks and 1day. Reading Location: [facility] CC: Dr. Mary Nunn MD; Dr. Vera Love MD ~ Personal Lines Underwriter: Signed [facility]09-04-2025 [facility]'s [address], [address] [place] [address] OFFICE VISIT Date of Service: 10/31/24 MR#: [id number] Acct: [id number] Name: VESTA HERNANDEZ Rep #: [id number] : 1995 Provider: Dr. Dinh Love MD Age/Sex: 29/F Location: [facility] [place] Status: Signed Intake Vital Signs 08/23/24 14:28 10/16/24 13:08 10/31/24 11:06 10/31/24 11:10 Height 5 ft 6 in 5 ft 6 in 5 ft 6 in 5 ft 6 in Weight: 170 lb BMI 27.4 BP 130/78 H Intake Visit Reasons: 30 wk ob K 9 Police Officer Required: No Is patient in pain?: No Allergies No Known Allergies Allergy (Verified 10/31/24 11:06) Medications ?Medication ?Instructions ?Recorded ?Confirmed ?Type levothyroxine 88 mcg tablet 88 mcg PO QDAY #60 tabs 10/31/24 Rx uwdrsogg-laa-tcwzr 120 mcg-dha 25 2 tab PO DAILY 08/0910/31/24 History mg-herb no.293 66.7 mg chew tablet (Alive Premium ) valacyclovir 1 gram tablet 1,000 mg PO BID PRN at onse t of 08/09/24 10/31/24 History (Valtrex) cold sore Last Menstrual Period: 03/24/24 Zika: Zika virus [...] 4 current occupational status: unemployed current occupation: [employer] pets and animals: No history of [...] 5-6 times per week duration: 30-45 minutes/day andie/yarsani: None seatbelt use: always do you feel safe at home: Yes 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 Date Name GA/Weeks Outcome Route Bth Weight Infant Gen Labor Lgth Anesthesia Del Locatn Provider FOB 03/23/14 Melvina 40 live - full term 8#1oz Female epidural [facility] 03/03/18 [place] 39 live - full term 8#13oz Male epid ural [facility] Dr.Weeman Hilario 10/06/19 [place] 38 live - full term 6#3oz Female epid ural [facility] Pj Hilario 05/23/21 [place] 38 live - full term 8#5oz Male epidu ral [facility] Suzanne Hilario 10/16/23 D&C HPI 30 wk ob Details: VESTA HERNANDEZ is a 29 year old who presents for routine OB visit. OB Visit CODY Calculator Estimated Delivery Date Method Current WG Current Estimate 12/29/24 LMP (Certain) 31w 4d Other Estimates 12/26/24 Ultrasound #1 32w 0d Expected Delivery Route/Plan Labor Preferences- CB/BF classes: no labor support person: Sulaiman labor intervention preferences: [] pain management options preferred: epidural cut cord/dad catch: cord : yes PP control planned: [] discussed possible routes of delivery and associated risks: [] special requests: [] Specific Issue/Plans Covid status: [] Flu vaccine: [] Tdap vaccine: given Rhogam: na LARC form signed: yes Problem list reviewed and updated with the [...] 12 oz) 119/83 Negative -?-?-?-?-?-?-?-?-?-?-?-?- Negative 166 -?-?-?--?-?-?-?-?-?-?-?-?- KW- no vb/crampi ng. discussed XYY results. anatomy US ordered. KW- no vb/cramping. discusse d XYY results. anatomy US ordered. thyroid levels need drawn next visit. having weight loss but eating appropriately. 07/24/24 -?-?-?-?-?-?-?-?-?-?-?-?- 17w 3d 157 lb 6 oz (-5 lb 10 oz) 121/81 Negative -?-?-?-?-?--?-?-?-?-?-?-?- Negative 161 -?-?-?-?-?-?-?-?-?-?-?-?- JV- no complaint s today. needs thyroid labs. has anatomy scan ordered. reviewed more about XYY 08/23/24 -?-?-?-?-?-?-?-?-?-?-?-?- 21w 5d 160 lb 8 oz (-2 lb 8 oz) 127/85 Negative -?-?-?-?-?-?-?-?-?-?-?-?- Negative 155 21 -?-?-?-?-?-?-?-?-?-?-?-?- LC- thryoid stud ies ordered. anatomy views now completed- pending report. no vb/cramping. 09/17/24 -?-?-?-?-?-?-?-?-?-?-?-?- 25w 2d 163 lb 8 oz (+8 oz) 119/81 Negative -?-?-?-?-?-?-?-?-?-?-?-?- Negative 145 25 -?-?-?-?-?-?-?-?-?-?-?-?- SM- no vb lof go od fm no regular ctx 10/16/24 -?-?-?-?-?-?-?-?-?-?-?-?- 29w 3d 168 lb 8 oz (+5 lb 8 oz) 124/72 Negative -?-?-?-?-?-?-?-?-?-?-?-?- Negative 160 29 -?-?-?-?-?-?-?-?-?-?-?-?- -No VB, LOF. G ood FM Larc, tdap. 28 wk labs pending 10/31/24 -?-?-?-?-?-?-?-?-?-?-?-?- 31w 4d 170 lb (+7 lb) 130/78 Negative -?-?-?-?-?-?-?-?-?-?-?-?- Negative 155 31 -?-?-?-?-?-?-?-?-?-?-?-?- SM- no vb lof go od fm no reuglar ctx ACOG First Trimester First Trimester: Desire for [...] Management Plans, Labor support person(s), Immediate Larc, Circumcision preference, Signs and Symptoms of Preeclampsia, Infant Feeding No , [place] Education and Family Medical Leave or Disability [...] Office Urine Glucose Negative Last Edit by Grazyna Pelayo on 10/31/24 11:11 Office Urine Protein Negative Last Edit by Grazyna Pelayo on 10/31/24 11:11 Coding Level of Care Code Off vis,est,level 3 Diagnoses Abnormal genetic test during O28.5 Missed with demise before 20 completed weeks of gestation O02.1 Acquired hypothyroidism E03.9 Hypothyroidism type: acquired Supervision of high risk in third trimester O09. Trimester: third trimester 31 weeks gestation of Z3A.31 Weeks of gestation: 31 weeks Abnormal TSH R79.89 Assessment and Plan Assessment and Plan (1) Abnormal genetic test during : Status: Acute Comment: NIPT XYY, discussed genetic counseling and offered MFM referral, had anatomy scan and WNL. declinedgenetic counseling visit. ANC worksheet sent, need to ask peds when genetic testing is done after . ordered growth US 32 and 26 weeks, and plan weekly NSTs from 36 weeks on (2) Missed with demise before 20 completed weeks of gestation: Status: Acute Comment: H/O D&C 09/2023 with SM (3) Hypothyroid: Status: Chronic Qualifiers: Hypothyroidism type: acquired Qualified Code(s): E03.9 - Hypothyroidism, unspecified Comment: Levothyroxine 112mcg 88mcg-repeat labs 08/23 (4) Supervision of high-risk : Status: Acute Qualifiers: Trimester: third trimester Qualified Code(s): O09.93 - Supervision of high risk , unspecified, third trimester Comment: PRR , CODY 12/29 boy PC: Christian Hein Kynzie, Dawson BF: Sulaiman (5) : Status: Acute Qualifiers: Weeks of gestation: 31 weeks Qualified Code(s): Z3A.31 - 31 weeks gestation of Comment: NIPT w gender & carrier- undecided (6) Abnormal TSH: Status: Acute Comment: need free T4 now. If normal, repeat TSH and Free T4 in 3 months Orders: Orders POC Urinalysis 2 Dip (Clinic) Today 10/31/24 1136 lynette CLINTON> Date _ Vera Tierney Signature: Date (if applicable) CC: ~ [facility]07-22-2025 Evaluation note* Diagnosis Onset Date Resolution Status Admit Date Abnormal genetic test during acute September 17, 2024 10:44am Abnormal TSH acute September 17 10:44am Missed with demise before 20 completed weeks of gestation acute September 17 10:44am acute September 17 10:44am Supervision of high-risk acute September 17, 2024 10:44am Hypothyroid chronic September 17 10:44am Abnormal genetic test during acute October 16 12:48pm Abnormal TSH acute October 16, 2024 12:48pm Missed with demise before 20 completed weeks of gestation acute October 16, 2024 12:48pm acute October 16 12:48pm Supervision of high-risk acute October 16 12:48pm Hypothyroid chronic October 16, 2024 12:48pm Abnormal genetic test during acute October 31 11:01am Abnormal TSH acute October 11:01am Missed with demise before 20 completed weeks of gestation acute October 11:01am acute October 31, 2024 11:01am Supervision of high-risk acute Mary 4th, 2 025 11:01am Hypothyroid chronic October 11:01am Abnormal genetic test during acute November 12, 2024 1:33pm Abnormal TSH acute November 122024 1:33pm Missed with demise before 20 completed weeks of gestation acute October 1:33pm acute October 1:33pm Supervision of high-risk acute November 12, 2024 1:33pm Hypothyroid chronic October 1:33pm Abnormal genetic test during acute November 25, 2024 10:22am Abnormal TSH acute November 252024 10:22am Missed with demise before 20 completed weeks of gestation acute October 10:22am acute October 10:22am Supervision of high-risk acute November 25, 2024 10:22am Hypothyroid chronic October 10:22am ES (amniotic fluid index) borderline low resolved November 25, 2024 10:22am Abnormal genetic test during acute December 02 1:17pm Abnormal TSH acute December 02, 2024 1:17pm Missed with demise before 20 completed weeks of gestation acute December 02, 2024 1:17pm acute December 02, 025 1:17pm Supervision of high-risk acute December 02 1:17pm Hypothyroid chronic December 02, 2024 1:17pm ES (amniotic fluid index) borderline low resolved December 02 1:17pm Abnormal genetic test during acute December 04 1:16pm Abnormal TSH acute December 04, 2024 1:16pm Missed with demise before 20 completed weeks of gestation acute December 04, 2024 1:16pm Oligohydramnios in third trimester acute December 04 1:16pm Positive GBS test acute December 04, 2024 1:16pm acute December 04, 2 025 1:16pm Supervision of high-risk acute December 04 1:16pm Vaginal delivery acute December 04, 2024 1:16pm Hypothyroid chronic December 04, 2024 1:16pm [facility] Work Phone: [phone]) 980-328607-22-2025 Progress [facility]'s [address], [address] [place] [address] OFFICE VISIT Date of Service: 09/17/24 MR#: [id number] Acct: [id number] Name: VESTA HERNANDEZ Rep #: [id number] : 1995 Provider: Dr. Dinh Love MD Age/Sex: 29/F Location: [facility] [place] Status: Signed Intake Vital Signs 07/24/24 14:30 08/23/24 14:28 09/17/24 10:47 Height 5 ft 6 in 5 ft 6 in 5 ft 6 in Weight: 163 lb 8 oz BMI 26.4 BP 119/81 H Intake Visit Reasons: 25 wk ob K 9 Police Officer Required: No Is patient in pain?: No Allergies No Known Allergies Allergy (Verified 09/17/24 10:49) Medications ?Medication ?Instructions ?Recorded ?Confirmed ?Type levothyroxine 88 mcg tablet 88 mcg PO QDAY #60 tabs 09/17/24 Rx jpnxskgu-zpz-cosrw 120 mcg-dha 25 2 tab PO DAILY 08/0909/17/24 History mg-herb no.293 66.7 mg chew tablet (Alive Premium ) valacyclovir 1 gram tablet 1,000 mg PO BID PRN at onse t of 08/09/24 09/17/24 History (Valtrex) cold sore Last Menstrual Period: 03/24/24 Zika: Zika virus [...] 4 current occupational status: unemployed current occupation: [employer] pets and animals: No history of [...] 5-6 times per week duration: 30-45 minutes/day andie/yarsani: None seatbelt use: always do you feel [...] live - full term 8#1oz Female epidural [facility] 03/03/18 [place] 39 live - full term 8#13oz Male epid ural [facility] Dr.Weeman Hilario 10/06/19 [place] 38 live - full term 6#3oz Female epid ural [facility] Pj Hilario 05/23/21 [place] 38 live - full term 8#5oz Male epidu ral [facility] Suzanne Hilario 10/16/23 D&C HPI 25 wk ob Details: VESTA HERNANDEZ is a 29 year old who presents for routine OB visit. OB Visit CODY Calculator Estimated Delivery Date Method Current WG Current Estimate 12/29/24 LMP (Certain) 25w 2d Other Estimates 12/26/24 Ultrasound #1 25w 5d Expected Delivery Route/Plan Labor Preferences- CB/BF classes: [...] views now completed- pending report. no vb/cramping. 09/17/24 -?-?-?-?-?-?-?-?-?-?-?-?- 25w 2d 163 lb 8 oz (+8 oz) 119/81 Negative -?-?-?-?-?-?-?-?-?-?-?-?- Negative 145 25 -?-?-?-?-?-?-?-?-?-?-?-?- SM- no vb lof go od fm no regular ctx ACOG First Trimester First Trimester: Desire for [...] Office Urine Glucose Negative Last Edit by Grazyna Pelayo on 09/17/24 10:56 Office Urine Protein Negative Last Edit by Grazyna Pelayo on 09/17/24 10:56 Coding Level of Care Code Off vis,est,level 3 Diagnoses Abnormal genetic test during O28.5 Missed with demise before 20 completed weeks of gestation O02.1 Acquired hypothyroidism E03.9 Hypothyroidism type: acquired Supervision of high-risk O09.90 25 weeks gestation of Z3A.25 Weeks of gestation: 25 weeks Abnormal TSH R79.89 Assessment and Plan [...] Supervision of high-risk : Status: Acute Comment: PRR , CODY 12/29 PC: Christian Hein Kynzie, Dawson BF: Sulaiman (5) : Status: Acute Qualifiers: Weeks of gestation: 25 weeks Qualified Code(s): Z3A.25 - 25 weeks gestation of Comment: NIPT w gender & carrier- undecided (6) Abnormal TSH: Status: Acute Comment: need free T4 now. If normal, repeat TSH and Free T4 in 3 months Orders: Orders POC Urinalysis 2 Dip (Clinic) Today O09.90 - Supervision of high risk , unspecified, unspecified trimester CBC W/Diff, Automated Today O09.90 - Supervision of high risk , unspecified, unspecified trimester Glucose Challenge Gest 1H 50g Today O09.90 - Supervision of high risk , unspecified, unspecified trimester, Z13.1 - Encounter for screening for diabetes mellitus HIV Today O90 - Supervision of high risk , unspecified, unspecified trimester Syphilis Antibodies Today O0990 - Supervision of high risk , unspecified, unspecified trimester 09/17/24 1132 lynette CLINTON> Date _ Vera Love MD [facility] Signature: Date (if applicable) CC: ~ [facility]06-27-2025 [facility] [address] [place] [address], [address] [place] [address] OFFICE VISIT Date of Service: 08/23/24 MR#: [id number] Acct: [id number] Name: VESTA HERNANDEZ Rep #: [id number] : 1995 Provider: FRANDY Go Age/Sex: 29/F Location[place] [facility] [place] Status: Signed Intake Vital Signs 05/30/24 13:01 08/09/24 14:10 08/23/24 14:28 Height 5 ft 6 in 5 ft 6 in 5 ft 6 in Weight: 160 lb 8 oz BMI 25.9 BP 127/85 H Intake Visit Reasons: 21wk ob Chief Complaint: 21wk OB K 9 Police Officer Required: No Is patient in pain?: No Allergies No Known Allergies Allergy (Verified 08/23/24 14:29) Medications ?Medication ?Instructions ?Recorded ?Confirmed ?Type levothyroxine 88 mcg tablet 88 mcg PO QDAY #60 tabs 08/23/24 Rx vdolbjud-usd-qcuna 120 mcg-dha 25 2 tab PO DAILY [...] 4 current occupational status: unemployed current occupation: [employer] pets and animals: No history of [...] 5-6 times per week duration: 30-45 minutes/day andie/yarsani: None seatbelt use: always do you feel [...] live - full term 8#1oz Female epidural [facility] 03/03/18 [place] 39 live - full term 8#13oz Male epid ural [facility] Dr.Weeman Hilario 10/06/19 Skip 38 live - full term 6#3oz Female epid ural [facility] Pj Hilario 05/23/21 Jamin 38 live - full term 8#5oz Male epidu ral [facility] Suzanne Hilario 10/16/23 D&C HPI 21wk ob [...] E03.9 Hypothyroidism type: acquired Supervision of high-risk O09.90 21 weeks gestation of Z3A.21 Weeks of [...] - Hypothyroidism, unspecified, O02.1 - Missed , O09.90 - Supervision of high risk , unspecified, [...] information and see below for orders placed atthis visit. [place] appropriate handout given. 08/23/24 1458 ns CNM> Date _ Devora Go CNM Cosigner Signature: Date (if applicable) CC: ~ [facility]06-27-2025 Progress note Author Devora Go [facility] Note Date/Time August 23, 2024 2:58 pm [facility] [address] [place] [address], [address] [place] [address] OFFICE VISIT Date of Service: 08/23/24 MR#: [id number] Acct: [id number] Name: DAVIDVESTA M Rep #: [id number] : 1995 Provider: FRANDY Go Age/Sex: 29/F Location: [facility] [place] Status: Signed Intake Vital Signs 05/30/24 13:01 08/09/24 14:10 06/27/25 14:28 Height 5 ft 6 in 5 ft 6 in 5 ft 6 in Weight: 160 lb 8 oz BMI 25.9 BP 127/85 H Intake Visit Reasons: 21wk ob Chief Complaint: 21wk OB K 9 Police Officer Required: No Is patient in pain?: No Allergies No Known Allergies Allergy (Verified 08/23/24 14:29) Medications ?Medication ?Instructions ?Recorded ?Confirmed ?Type levothyroxine 88 mcg tablet 88 mcg PO QDAY #60 tabs 08/23/24 Rx mjbjzsrs-uek-rmdjr 120 mcg-dha 25 2 tab PO DAILY [...] 4 current occupational status: unemployed current occupation: [employer] pets and animals: No history of [...] 5-6 times per week duration: 30-45 minutes/day andie/yarsani: None seatbelt use: always do you feel safe at home: Yes additional 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: BF [employer]aim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 Date Name GA/Weeks Outcome Route Bth Weight Infant Gen Labor Lgth Anesthesia Del Locatn Provider FOB 03/23/14 Melvina 40 live - full term 8#1oz Female epidural [facility] 03/03/18 [place] 39 live - full term 8#13oz Male epid ural [facility] Dr.Weeman Hilario 10/06/19 Skip 38 live - full term 6#3oz Female epid ural [facility] Pj Hilario 05/23/21 [place] 38 live - full term 8#5oz Male epidu ral [facility] Suzanne Hilario 10/16/23 D&C HPI 21wk ob [...] E03.9 Hypothyroidism type: acquired Supervision of high-risk O09.90 21 weeks gestation of Z3A.21 Weeks of [...] D&C 09/2023 with SM (3) Hypothyroid: Status: Chronic Qualifiers: Hypothyroidism type: [...] - Hypothyroidism, unspecified, O02.1 - Missed , O09.90 - Supervision of high risk , unspecified, [...] this visit. GA appropriate handout given. 08/23/24 7267 <Electronically signed by Devora grove CNM> Date _ Devora Go CNM Cosigner Signature: Date (if applicable) CC: ~ [facility] [employer] [facility] Work Phone: 1(477) 973-986306-13-2025 Evaluation note* Diagnosis Onset Date Resolution Status Admit Date Hypothyroid chronic August 09 2:10pm Abnormal genetic test during acute August 23, 2024 2:23pm Abnormal TSH acute August 23 2:23pm Missed with demise before 20 completed weeks of gestation acute August 23 2:23pm acute August 23 2:23pm Supervision of high-risk acute August 23, 2024 2:23pm Hypothyroid chronic August 23 2:23pm Abnormal genetic test during acute September 17, 2024 10:44am Abnormal TSH acute September 17 10:44am Missed with demise before 20 completed weeks of gestation acute September 17 10:44am acute September 17 10:44am Supervision of high-risk acute September 17, 2024 10:44am Hypothyroid chronic September 17 10:44am Abnormal genetic test during acute October 16 12:48pm Abnormal TSH acute October 16, 2024 12:48pm Missed with demise before 20 completed weeks of gestation acute October 16, 2024 12:48pm acute October 16 12:48pm Supervision of high-risk acute October 16 12:48pm Hypothyroid chronic October 16, 2024 12:48pm Abnormal genetic test during acute October 31 11:01am Abnormal TSH acute October 11:01am Missed with demise before 20 completed weeks of gestation acute October 11:01am acute October 31, 2024 11:01am Supervision of high-risk acute October 31 11:01am Hypothyroid chronic October 11:01am Abnormal genetic test during acute November 12, 2024 1:33pm Abnormal TSH acute November 122024 1:33pm Missed with demise before 20 completed weeks of gestation october 1:33pm acute October 1:33pm Supervision of high-risk acute November 12, 2024 1:33pm Hypothyroid chronic October 1:33pm Abnormal genetic test during acute November 25, 2024 10:22am Abnormal TSH acute November 252024 10:22am ES (amniotic fluid index) borderline low acute November 25, 2024 10:22am Missed with demise before 20 completed weeks of gestation acute October 10:22am acute October 10:22am Supervision of high-risk acute November 25, 2024 10:22am Hypothyroid chronic October 10:22am [facility] Work Phone: 1(636) 589-255706-13-2025 Evaluation note* Diagnosis Onset Date Resolution Status Admit Date Hypothyroid chronic August 09 2:10pm Abnormal genetic test during acute August 23, 2024 2:23pm Abnormal TSH acute August 23 2:23pm Missed with demise before 20 completed weeks of gestation acute August 23 2:23pm acute August 23 2:23pm Supervision of high-risk acute August 23, 2024 2:23pm Hypothyroid chronic August 23 2:23pm Abnormal genetic test during acute September 17, 2024 10:44am Abnormal TSH acute September 17 025 10:44am Missed with demise before 20 completed weeks of gestation acute September 17 10:44am acute September 17 10:44am Supervision of high-risk acute September 17, 2024 10:44am Hypothyroid chronic September 17 10:44am Abnormal genetic test during acute October 16 12:48pm Abnormal TSH acute October 16, 2024 12:48pm Missed with demise before 20 completed weeks of gestation acute October 16, 2024 12:48pm acute October 16 12:48pm Supervision of high-risk acute October 16 12:48pm Hypothyroid chronic October 16, 2024 12:48pm Abnormal genetic test during acute October 31 11:01am Abnormal TSH acute October 11:01am Missed with demise before 20 completed weeks of gestation acute October 11:01am acute October 31, 2024 11:01am Supervision of high-risk acute October 31, 025 11:01am Hypothyroid chronic October 11:01am Abnormal genetic test during acute November 12, 2024 1:33pm Abnormal TSH acute November 122024 1:33pm Missed with demise before 20 completed weeks of gestation acute October 1:33pm acute October 1:33pm Supervision of high-risk acute November 12, 2024 1:33pm Hypothyroid chronic October 1:33pm Abnormal genetic test during acute November 25, 2024 10:22am Abnormal TSH acute November 252024 10:22am ES (amniotic fluid index) borderline low acute November 25, 2024 10:22am Missed with demise before 20 completed weeks of gestation acute October 10:22am acute October 10:22am Supervision of high-risk acute November 25, 2024 10:22am Hypothyroid chronic October 10:22am Abnormal genetic test during acute December 02 1:17pm Abnormal TSH acute December 02, 2024 1:17pm ES (amniotic fluid index) borderline low acute December 02 1:17pm Missed with demise before 20 completed weeks of gestation acute December 02, 2024 1:17pm acute December 02, 025 1:17pm Supervision of high-risk acute December 02 1:17pm Hypothyroid chronic December 02, 2024 1:17pm [facility] Work Phone: 1(256) 632-218705-28-2025 Evaluation note* Diagnosis Onset Date Resolution Status Admit Date Abnormal genetic test during acute July 24, [...] 23, 2024 2:23pm Abnormal TSH acute August 23 025 2:23pm Missed with demise before 20 completed weeks of gestation acute August 23 2:23pm acute August 23 2:23pm Supervision of high-risk acute August 23, 2024 2:23pm Hypothyroid chronic August 23 2:23pm Abnormal genetic test during acute September 17, 2024 10:44am Abnormal TSH acute September 17 025 10:44am Missed with demise before 20 completed weeks of gestation acute September 17 10:44am acute September 17 10:44am Supervision of high-risk acute September 17, 2024 10:44am Hypothyroid chronic September 17 10:44am Abnormal genetic test during acute October 16 12:48pm Abnormal TSH acute October 16, 2024 12:48pm Missed with demise before 20 completed weeks of gestation acute October 16, 2024 12:48pm acute October 16, 025 12:48pm Supervision of high-risk acute October 16 12:48pm Hypothyroid chronic October 16, 2024 12:48pm Abnormal genetic test during acute October 31, 11:01am Abnormal TSH acute October 11:01am Missed with demise before 20 completed weeks of gestation acute October 11:01am acute October 31, 2024 11:01am Supervision of high-risk acute October 31, 11:01am Hypothyroid chronic October 11:01am [facility] Work Phone: 1(409) 981-814505-28-2025 Evaluation note* Diagnosis Onset Date Resolution Status Admit Date Abnormal genetic test during acute July 24, [...] 23, 2024 2:23pm Abnormal TSH acute August 23 025 2:23pm Missed with demise before 20 completed weeks of gestation acute August 23 2:23pm acute August 23 2:23pm Supervision of high-risk acute August 23, 2024 2:23pm Hypothyroid chronic August 23 2:23pm Abnormal genetic test during acute September 17, 2024 10:44am Abnormal TSH acute September 17, 025 10:44am Missed with demise before 20 completed weeks of gestation acute September 17 10:44am acute September 17 10:44am Supervision of high-risk acute September 17, 2024 10:44am Hypothyroid chronic September 17 10:44am Abnormal genetic test during acute October 16 12:48pm Abnormal TSH acute October 16, 2024 12:48pm Missed with demise before 20 completed weeks of gestation acute October 16, 2024 12:48pm acute October 16 025 12:48pm Supervision of high-risk acute October 16 12:48pm Hypothyroid chronic October 16, 2024 12:48pm Abnormal genetic test during acute October 31 11:01am Abnormal TSH acute October 11:01am Missed with demise before 20 completed weeks of gestation acute October 11:01am acute October 31, 2024 11:01am Supervision of high-risk acute October 31 025 11:01am Hypothyroid chronic October 11:01am Abnormal genetic test during acute November 12, 2024 1:33pm Abnormal TSH acute November 122024 1:33pm Missed with demise before 20 completed weeks of gestation acute October 1:33pm acute October 1:33pm Supervision of high-risk acute November 12, 2024 1:33pm Hypothyroid chronic October 1:33pm [facility] Work Phone: 1(696) 883-973305-28-2025 [facility] [address], [address] [place] [address] OFFICE VISIT Date of Service: 07/24/24 MR#: [id number] Acct: [id number] Name: VESTA HERNANDEZ Rep #: [id number] : 1995 Provider: Dr. Roxann Wong, Age/Sex: 28/F Location[place] [facility] [place] Status: Signed Intake Vital Signs 05/30/24 13:01 06/27/24 15:02 07/24/24 14:29 07/24/24 14:30 Height 5 ft 6 in 5 ft 6 in 5 ft 6 in 5 ft 6 in Weight: 157 lb 6 oz BMI 25.4 BP 121/81 H Intake Visit Reasons: 17wk ob K 9 Police Officer Required: No Is patient in pain?: No Allergies No Known Allergies Allergy (Verified 07/24/24 14:28) Medications ?Medication ?Instructions ?Recorded ?Confirmed ?Type djstltoo-cae-bzxbg 120 mcg-dha 25 tab PO 05/30/2406/28 History [...] 4 current occupational status: unemployed current occupation: [employer] pets and animals: No history of [...] 5-6 times per week duration: 30-45 minutes/day andie/yarsani: None seatbelt use: always do you feel safe at home: Yes additional 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 Date Name GA/Weeks Outcome Route Bth Weight Infant Gen Labor Lgth Anesthesia Del Locat Provider FOB 03/23/14 Melvina 40 live - full term 8#1oz Female epidural [facility] 03/03/18 [place] 39 live - full term 8#13oz Male epid ural [facility] Dr.Weeman Hilario 10/06/19 Skip 38 live - full term 6#3oz Female epid ural [facility] Pj Hilario 05/23/21 Jamin 38 live - full term 8#5oz Male epidu ral [facility] Suzanne Hilario 10/16/23 D&C HPI 17wk ob [...] abnormal findings of blood chemistry 07/24/24 1507 jorgito Mendez DO> Date _ Amelia Wong DO Cosign Signature: Date (if applicable) CC: ~ [id number] Progress note Author Amelia Mendez [facility] Note Date/Time July 24, 2024 3:07p [facility] [address], [address] [place] [address] OFFICE VISIT Date of Service: 07/24/24 MR#: [id number] Acct: [id number] Name: VESTA HERNANDEZ Rep #: [id number] : 1995 Provider: Dr. Roxann Wong DO Age/Sex: 28/F Location: [facility] [place] Status: Signed Intake Vital Signs 05/30/24 13:01 06/27/24 15:02 07/24/24 14:29 07/24/24 14:30 Height 5 ft 6 in 5 ft 6 in 5 ft 6 in 5 ft 6 in Weight: 157 lb 6 oz BMI 25.4 BP 121/81 H Intake Visit Reasons: 17wk ob K 9 Police Officer Required: No Is patient in pain?: No Allergies No Known Allergies Allergy (Verified 07/24/24 14:28) Medications ?Medication ?Instructions ?Recorded ?Confirmed ?Type mkzicjpn-rlk-tgmxp 120 mcg-dha 25 tab PO 05/30/2406/28 History [...] 4 current occupational status: unemployed current occupation: [employer] pets and animals: No history of [...] 5-6 times per week duration: 30-45 minutes/day andie/yarsani: None seatbelt use: always do you feel [...] live - full term 8#1oz Female epidural [facility] 03/03/18 [place] 39 live - full term 8#13oz Male epid ural [facility] Dr.Weeman Hilario 10/06/19 [place] 38 live - full term 6#3oz Female epid ural [facility] Pj Hilario 05/23/21 Jamin 38 live - full term 8#5oz Male epidu ral [facility] Suzanne Hilario 10/16/23 D&C HPI 17wk ob [...] Symptoms of Preeclampsia, Infant Feeding No , [place] [employer] and Family Medical Leave or Disability [...] test during : Status: Acute Comment: NIPT DREW, discussed genetic counseling and offered MFM referral, [...] Cosigner Signature: Date (if applicable) CC: ~ [facility] Work Phone: [phone] Instructions* Patient Instructions* Serg Grubbs APRN.BRENNAN - 07/02/2024 6:46 PM EDT [facility] [place] [id number] [place] [address] Emergency Department Diagnosis: Assessment SINUSITIS: You have [...] vomiting, or unusual drowsiness. documented in [facility] NoteHNO ID: [id number] Author: SERG GRUBBS APRN.BRENNAN Service: ? Author Type: Nurse Practitioner Type: Progress Notes Filed: 07/02/2024 18:50 Note Text: [facility] [place] [address] [place] [address] Dept: [phone] Dept Subjective Subjective Vesta Hernandez is a [...] only minimally provide some relief. States that care home through her symptoms she thought she was [...] Take 100 mcg by mouth once daily.) ERV552-bhxi-TQ-v8-ufy-ksd-feky ( MULTI-DHA,WITH VIT K,) 27 mg iron-800 [...] and frontal sinus tenderness present. Mouth/Throat: Lips: Cut Off. Mouth: Mucous membranes are moist. No oral [...] - ICD9: V22.2, ICD10: Z3A.14 Serg Grubbs, SENIOR TECHNICAL ANALYST.PATTERN CARRIER Differential Diagnoses - Sinusitis is more likely [...] with treatment plan. Patient (more content not included)...[facility]05-06-2025 History of Present illness Narrative* Serg Grubbs APRN.[facility] - 07/02/2024 6:43 PM EDT [facility] [address] [address] Dept: [phone] Dept Subjective Subjective Vesta Hernandez is a [...] only minimally provide some relief. States that care home through her symptoms she thought she was [...] Take 100 mcg by mouth once daily.) QVE630-lilu-WE-u4-uwa-rim-oxno ( MULTI-DHA,WITH VIT K,) 27 mg iron-800 [...] and frontal sinus tenderness present. Mouth/Throat: Lips: Cut Off. Mouth: Mucous membranes are moist. No oral [...] - ICD9: V22.2, ICD10: Z3A.14 Serg Grubbs APRN.[facility] Differential Diagnoses - Sinusitis is more likely [...] used to dictate this note. Serg Grubbs APRN-OCCUPATIONAL THERAPY TECHNICIAN 07/02/2024 6:43 PM [address] [facility]05-01-2025 Evaluation note* Diagnosis Onset Date Resolution Status Admit Date Abnormal genetic test during acute June 27, [...] 2024 2:23pm Abnormal TSH acute August 23, 2:23pm Missed with demise before 20 completed weeks of gestation acute August 23 2:23pm acute August 23 2:23pm Supervision of high-risk acute August 23, 2024 2:23pm Hypothyroid chronic August 23 2:23pm Abnormal genetic test during acute September 17, 2024 10:44am Abnormal TSH acute September 17, 025 10:44am Missed with demise before 20 completed weeks of gestation acute September 17 10:44am acute September 17 10:44am Supervision of high-risk acute September 17, 2024 10:44am Hypothyroid chronic September 17 10:44am Abnormal genetic test during acute October 16 12:48pm Abnormal TSH acute October 16, 2024 12:48pm Missed with demise before 20 completed weeks of gestation acute October 16, 2024 12:48pm acute October 16, 12:48pm Supervision of high-risk acute October 16 12:48pm Hypothyroid chronic October 16, 2024 12:48pm [facility] Work Phone: 1(406) 996-549204-03-2025 Evaluation note* Diagnosis Onset Date Resolution Status [...] 2024 2:23pm Abnormal TSH acute August 23, 025 2:23pm Missed with demise before 20 completed weeks of gestation acute August 23 2:23pm acute August 23 2:23pm Supervision of high-risk acute August 23, 2024 2:23pm Hypothyroid chronic August 23 2:23pm [facility] Work Phone: 1([phone]) 453-850804-03-2025 Evaluation note* Diagnosis Onset Date Resolution Status [...] 2024 2:23pm Hypothyroid chronic August 23 2:23pm Abnormal genetic test during acute September 17, 2024 10:44am Abnormal TSH acute September 17 025 10:44am Missed with demise before 20 completed weeks of gestation acute September 17 10:44am acute September 17 10:44am Supervision of high-risk acute September 17, 2024 10:44am Hypothyroid chronic September 17 10:44am [facility] Work Phone: 1([phone]) [phone] Instructions* Patient Instructions* Serg Grubbs, SENIOR TECHNICAL ANALYST.PATTERN CARRIER - 05/27/2024 5:13 PM EDT [facility]IA [...] even if the symptoms go away. 2. Qjqh-jbi-bfqvobv pain medication may be taken or other [...] holding him or her). documented in this encounterWilson [address] Hospital03-31-2025 NoteHNO ID: [id number] Author: SERG GRUBBS APRN.PATTERN CARRIER Service: ? Author Type: Nurse Practitioner Type: Progress Notes Filed: 05/27/2024 17:29 Note Text: [facility] [place] [address] [facility] [address] Dept: [phone] Dept Subjective Subjective Vesta Hernandez is a [...] Take 1 tablet by mouth once daily. [id number]-wyfw-HM-x3-qpz-xgo-pxul ( MULTI-DHA,WITH VIT K,) 27 mg iron-800 [...] - AMOXICILLIN 875 MG TABLET Serg Grubbs APRN.PATTERN CARRIER Differential Diagnoses - Left dysphagia is more [...] used to dictate this note. Serg Grubbs APRN-OCCUPATIONAL THERAPY TECHNICIAN 05/27/2024 5:11 [facility]03-31-2025 History of Present illness Narrative* Serg Grubbs, SENIOR TECHNICAL ANALYST.PATTERN CARRIER - 05/27/2024 5:11 PM EDT [facility] [address] [place] [address] Dept: [phone] Dept Subjective Subjective Vesta Hernandez is a [...] Take 1 tablet by mouth once daily. [id number]-abjr-TF-q7-fwe-iav-llmx ( MULTI-DHA,WITH VIT K,) 27 mg iron-800 [...] - AMOXICILLIN 875 MG TABLET Serg Grubbs APRN.BRENNAN Differential Diagnoses - Left dysphagia is more [...] used to dictate this note. Serg Grubbs APRN-OCCUPATIONAL THERAPY TECHNICIAN 05/27/2024 5:11 PM documented in [address] [facility]02-17-2025 Evaluation note* Diagnosis Onset Date Resolution Status Admit Date Immunization declined noneactive [facility] 2024 8:58am Acquired hypothyroidism noneactive [facility] 2024 8:58am Establishing care with new doctor, encounter for noneactive March 302024 8:58am Fatigue noneactive April 15, 2024 8:58am Goiter noneactive April 15, 2024 8:58am Recurrent kidney stones noneactive [facility] 2024 8:58am Abnormal TSH acute May 30, 2 025 12:57pm Hypothyroid acute May 30 12:57pm Missed with demise before 20 completed weeks of gestation acute May 30 12:57pm acute May 30 12:57pm Supervision of high-risk acute May 30, 2024 12:57pm [facility] Work Phone: 1([phone]) 370-196302-17-2025 Evaluation note* Diagnosis Onset Date Resolution Status Admit Date Immunization declined noneactive [facility] 2024 8:58am Acquired hypothyroidism noneactive [facility] 2024 8:58am Establishing care with new doctor, encounter for noneactive March 302024 8:58am Fatigue noneactive April 15, 2024 8:58am Goiter noneactive April 15, 2024 8:58am Recurrent kidney stones noneactive [facility] 2024 8:58am Abnormal TSH acute May 30, [...] high-risk acute July 24, 2024 2 :06pm [facility] Work Phone: 1(833) 266-231102-17-2025 Evaluation note* Diagnosis Onset Date Resolution Status Admit Date Immunization declined noneactive [facility] 2024 8:58am Acquired hypothyroidism noneactive [facility] 2024 8:58am Establishing care with new doctor, encounter for noneactive March 302024 8:58am Fatigue noneactive April 15, 2024 8:58am Goiter noneactive April 15, 2024 8:58am Recurrent kidney stones noneactive [facility] 2024 8:58am Abnormal TSH acute May [...] 2 :06pm Hypothyroid acute August 09 2:10pm [facility] Work Phone: 1([phone]) 774-722210-28-2023 History of Present illness Narrative* Bobby Lorenzo MD - 12/24/2022 4:44 PM EDT Vesta Hernandez is a 27 year old female who presents with Sinusitis (Head pressure, headache drainage pos sinus infection for 1 week ) and Headache HPI patient 27-year-old female who presented to [facility] this afternoon with complaint ofhead pressure, headache, postnasal drainage, nasal congestion. The symptoms started 1 week ago and patient tried naqy-ysc-dojhgfa medication without relief and due to concern patient is here for further evaluation and treatment History reviewed. No pertinent past medical history. There is no problem list on file for this patient. Current Outpatient Medications Medication Sig Dispense Refill [id number]-EF-w1-zny-bok-nora ( MULTI-DHA,WITH VIT K,) 27 mg iron-800 [...] PACK Bobby Lorenzo MD documented in [facility] History of Present illness Narrative* Karina Garcia, SENIOR TECHNICAL ANALYST.[facility] - 05/19/2022 7:37 PM EDT Vesta Hernandez [...] history is provided by the patient. No speech language specialist was used. No past medical history on file. There is no problem list on file for this patient. Current Outpatient Medications Medication Sig Dispense Refill amoxicillin (AMOXIL) 875 mg tablet Take 1 tablet by mouth every 12 hours for 7 days. 14 tablet 0 [id number]-VV-k4-fyy-xue-mrro ( MULTI-DHA,WITH VIT K,) 27 mg iron-800 [...] - AMOXICILLIN 875 MG TABLET Karina Garcia APRN.BRENNAN documented in [facility]Wilson [facility]03-23-2023 Instructions* Patient Instructions* Karina Garcia APRN.CNP - [...] vomiting, or unusual drowsiness. documented in this [facility]03-19-2023 History of Present illness Narrative* Steve Snell MD - 05/15/2022 2:20 PM EDT Vesta Hernandez is a 26 year old female who presents with Ear Problem (Right ear pain), NasalCongestion, and Cough (Since Monday). No History reviewed. No pertinent past medical history. There is no problem list on file for this patient. Current Outpatient Medications Medication Sig Dispense Refill [id number]-xpih-QZ-c6-gpa-jnx-rmqj ( MULTI-DHA,WITH VIT K,) 27 mg iron-800 [...] symptoms. Steve Snell MD documented in this encounterWilson [facility] HospitalEvaluation note* Diagnosis Onset Date Resolution Status (spontaneous vaginal delivery) acute [facility] Work Phone: Evaluation note* Diagnosis Viral illness- Primary Unspecified viral infection, in conditions classified elsewhere and of unspecified site Sinus congestion Other diseases of nasal cavity and sinuses Eustachian tube dysfunction, bilateral documented in this encounter [facility]* Diagnosis Bacterial sinusitis- Primary Unspecified sinusitis (chronic) documented in this encounter [facility]* Diagnosis URI, acute- Primary Acute upper respiratory infections of unspecified site documented in this encounter [facility]* Diagnosis Acute otitis media, left- Primary Unspecified otitis media documented in this encounter [facility]* Diagnosis Acute non-recurrent frontal sinusitis- Primary 14 weeks gestation of (HCC) state, incidental documented in this encounter [facility] Discharge instructionsAdditional Instructions Date of Discharge: 12/07/24[facility] Work Phone: Progress note Author Vera Love [facility] Note Date/Time September 17, 2024 11:3 2am [facility] [address], [address] [place] [address] OFFICE VISIT Date of Service: 09/17/24 MR#: [id number] Acct: [id number] Name: VESTA HERNANDEZ Rep #: [id number] : 1995 Provider: Dr. Dinh Love MD Age/Sex: 29/F Location: [facility] [place] Status: Signed Intake Vital Signs 07/24/24 14:30 08/23/24 14:28 09/17/24 10:47 Height 5 ft 6 in 5 ft 6 in 5 ft 6 in Weight: 163 lb 8 oz BMI 26.4 BP 119/81 H Intake Visit Reasons: 25 wk ob K 9 Police Officer Required: No Is patient in pain?: No Allergies No Known Allergies Allergy (Verified 09/17/24 10:49) Medications ?Medication ?Instructions ?Recorded ?Confirmed ?Type levothyroxine 88 mcg tablet 88 mcg PO QDAY #60 tabs 09/17/24 Rx bobrihvd-gpc-xbpfk 120 mcg-dha 25 2 tab PO DAILY 08/0909/17/24 History mg-herb no.293 66.7 mg chew tablet (Alive Premium ) valacyclovir 1 gram tablet 1,000 mg PO BID PRN at onse t of 08/09/24 09/17/24 History (Valtrex) cold sore Last Menstrual Period: 03/24/24 Zika: Zika virus [...] 4 current occupational status: unemployed current occupation: [employer] pets and animals: No history of [...] 5-6 times per week duration: 30-45 minutes/day andie/yarsani: None seatbelt use: always do you feel [...] live - full term 8#1oz Female epidural [facility] 03/03/18 [place] 39 live - full term 8#13oz Male epid ural [facility] Dr.Weeman Hilario 10/06/19 [place] 38 live - full term 6#3oz Female epid ural [facility] Pj Hilario 05/23/21 Jamin 38 live - full term 8#5oz Male epidu ral [facility] Suzanne Clintonel 10/16/23 D&C HPI 25 wk ob Details: VESTA HERNANDEZ is a 29 year old who presents for routine OB visit. OB Visit CODY Calculator Estimated Delivery Date Method Current WG Current Estimate 12/29/24 LMP (Certain) 25w 2d Other Estimates 12/26/24 Ultrasound #1 25w 5d Expected Delivery Route/Plan Labor Preferences- CB/BF classes: [...] views now completed- pending report. no vb/cramping. 09/17/24 -?-?-?-?-?-?-?-?-?-?-?-?- 25w 2d 163 lb 8 oz (+8 oz) 119/81 Negative -?-?-?-?-?-?-?-?-?-?-?-?- Negative 145 25 -?-?-?-?-?-?-?-?-?-?-?-?- SM- no vb lof go od fm no regular ctx ACOG First Trimester First Trimester: Desire for [...] and Symptoms of Preeclampsia, Feeding No , [place] Education and Family Medical Leave or Disability [...] Office Urine Glucose Negative Last Edit by Grazyna Pelayo on 09/17/24 10:56 Office Urine Protein Negative Last Edit by Grazyna Pelayo on 09/17/24 10:56 Coding Level of Care Code Off vis,est,level 3 Diagnoses Abnormal genetic test during O28.5 Missed with demise before 20 completed weeks of gestation O02.1 Acquired hypothyroidism E03.9 Hypothyroidism type: acquired Supervision of high-risk O09.90 25 weeks gestation of Z3A.25 Weeks of gestation: 25 weeks Abnormal TSH R79.89 Assessment and Plan Assessment and Plan (1) Abnormal genetic test during : Status: Acute Comment: NIPT XYY, discussed genetic counseling and offered MFM referral, will discuss further at next visit (2) Missed with demise before 20 completed weeks of gestation: Status: Acute Comment: H/O D&C 09/2023 with SM (3) Hypothyroid: Status: Chronic Qualifiers: Hypothyroidism type: acquired Qualified Code(s): E03.9 - Hypothyroidism, unspecified Comment: Levothyroxine 112mcg 88mcg-repeat labs 08/23 (4) Supervision of high-risk : Status: Acute Comment: PRR , CODY 12/29 PC: Christian Hein Kynzie, Dawson BF: Sulaiman (5) : Status: Acute Qualifiers: Weeks of gestation: 25 weeks Qualified Code(s): Z3A.25 - 25 weeks gestation of Comment: NIPT w gender & carrier- undecided (6) Abnormal TSH: Status: Acute Comment: need free T4 now. If normal, repeat TSH and Free T4 in 3 months Orders: Orders POC Urinalysis 2 Dip (Clinic) Today O09.90 - Supervision of high risk , unspecified, unspecified trimester CBC W/Diff, Automated Today O09.90 - Supervision of high risk , unspecified, unspecified trimester Glucose Challenge Gest 1H 50g Today O09.90 - Supervision of high risk , unspecified, unspecified trimester, Z13.1 - Encounter for screening for diabetes mellitus HIV Today O09.90 - Supervision of high risk , unspecified, unspecified trimester Syphilis Antibodies Today O09.90 - Supervision of high risk , unspecified, unspecified trimester 09/17/24 1132 <Electronically signed by Vera ojeda MD> Date _ Vera Love MD Cosigner Signature: Date (if applicable) CC: ~ [facility] Work Phone: Progress note Author Vera Love [facility] Note Date/Time October 31, 2024 11:36am [facility]'[address], [address] [place] [id number] OFFICE VISIT Date of Service: 10/31/24 MR#: [id number] Acct: [id number] Name: VESTA HERNANDEZ Rep #: [id number] : 1995 Provider: Dr. Dinh Love MD Age/Sex: 29/F Location: [facility] [place] Status: Signed Intake Vital Signs 08/23/24 14:28 10/16/24 13:08 10/31/24 11:06 10/31/24 11:10 Height 5 ft 6 in 5 ft 6 in 5 ft 6 in 5 ft 6 in Weight: 170 lb BMI 27.4 BP 130/78 H Intake Visit Reasons: 30 wk ob K 9 Police Officer Required: No Is patient in pain?: No Allergies No Known Allergies Allergy (Verified 10/31/24 11:06) Medications ?Medication ?Instructions ?Recorded ?Confirmed ?Type levothyroxine 88 mcg tablet 88 mcg PO QDAY #60 tabs 10/31/24 Rx ttrzxybp-arf-buipx 120 mcg-dha 25 2 tab PO DAILY 08/0910/31/24 History mg-herb no.293 66.7 mg chew tablet (Alive Premium ) valacyclovir 1 gram tablet 1,000 mg PO BID PRN at onse t of 08/09/24 10/31/24 History (Valtrex) cold sore Last Menstrual Period: 03/24/24 Zika: Zika virus [...] 4 current occupational status: unemployed current occupation: [employer] pets and animals: No history of [...] 5-6 times per week duration: 30-45 minutes/day andie/yarsani: None seatbelt use: always do you feel [...] live - full term 8#1oz Female epidural [facility] 03/03/18 [place] 39 live - full term 8#13oz Male epid ural [facility] Dr.Weeman Hilario 10/06/19 [place] 38 live - full term 6#3oz Female epid ural [facility] Pj Hilario 05/23/21 [place] 38 live - full term 8#5oz Male epidu ral [facility] Suzanne Hilario 10/16/23 D&C HPI 30 wk ob Details: VESTA HERNANDEZ is a 29 year old who presents for routine OB visit. OB Visit CODY Calculator Estimated Delivery Date Method Current WG Current Estimate 12/29/24 LMP (Certain) 31w 4d Other Estimates 12/26/24 Ultrasound #1 32w 0d Expected Delivery Route/Plan Labor Preferences- CB/BF classes: no labor support person: Sulaiman labor intervention preferences: [] pain management options preferred: epidural cut cord/dad catch: cord : yes PP control planned: [] discussed possible routes of delivery and associated risks: [] special requests: [] Specific Issue/Plans Covid status: [] Flu vaccine: [] Tdap vaccine: given Rhogam: na LARC form signed: yes Problem list reviewed and updated with the [...] 12 oz) 119/83 Negative -?-?-?-?-?-?-?-?-?-?-?-?- Negative 166 -?-?-?--?-?-?-?-?-?-?-?-?- KW- no vb/crampi ng. discussed XYY results. anatomy US ordered. KW- no vb/cramping. discusse d XYY results. anatomy US ordered. thyroid levels need drawn next visit. having weight loss but eating appropriately. 07/24/24 -?-?-?-?-?-?-?-?-?-?-?-?- 17w 3d 157 lb 6 oz (-5 lb 10 oz) 121/81 Negative -?-?-?-?-?--?-?-?-?-?-?-?- Negative 161 -?-?-?-?-?-?-?-?-?-?-?-?- JV- no complaint s today. needs thyroid labs. has anatomy scan ordered. reviewed more about XYY 08/23/24 -?-?-?-?-?-?-?-?-?-?-?-?- 21w 5d 160 lb 8 oz (-2 lb 8 oz) 127/85 Negative -?-?-?-?-?-?-?-?-?-?-?-?- Negative 155 21 -?-?-?-?-?-?-?-?-?-?-?-?- LC- thryoid stud ies ordered. anatomy views now completed- pending report. no vb/cramping. 09/17/24 -?-?-?-?-?-?-?-?-?-?-?-?- 25w 2d 163 lb 8 oz (+8 oz) 119/81 Negative -?-?-?-?-?-?-?-?-?-?-?-?- Negative 145 25 -?-?-?-?-?-?-?-?-?-?-?-?- SM- no vb lof go od fm no regular ctx 10/16/24 -?-?-?-?-?-?-?-?-?-?-?-?- 29w 3d 168 lb 8 oz (+5 lb 8 oz) 124/72 Negative -?-?-?-?-?-?-?-?-?-?-?-?- Negative 160 29 -?-?-?-?-?-?-?-?-?-?-?-?- MH-No VB, LOF. G ood FM Larc, tdap. 28 wk labs pending 10/31/24 -?-?-?-?-?-?-?-?-?-?-?-?- 31w 4d 170 lb (+7 lb) 130/78 Negative -?-?-?-?-?-?-?-?-?-?-?-?- Negative 155 31 -?-?-?-?-?-?-?-?-?-?-?-?- SM- no vb lof go od fm no reuglar ctx ACOG First Trimester First Trimester: Desire for [...] Management Plans, Labor support person(s), Immediate Larc, Circumcision preference, Signs and Symptoms of Preeclampsia, Feeding No , [place] Education and Family Medical Leave or Disability [...] Office Urine Glucose Negative Last Edit by Grazyna Pelayo on 10/31/24 11:11 Office Urine Protein Negative Last Edit by Grazyna Pelayo on 10/31/24 11:11 Coding Level of Care Code Off vis,est,level 3 Diagnoses Abnormal genetic test during O28.5 Missed with demise before 20 completed weeks of gestation O02.1 Acquired hypothyroidism E03.9 Hypothyroidism type: acquired Supervision of high risk in third trimester O09.93 Trimester: third trimester 31 weeks gestation of Z3A.31 Weeks of gestation: 31 weeks Abnormal TSH R79.89 Assessment and Plan Assessment and Plan (1) Abnormal genetic test during : Status: Acute Comment: NIPT XYY, discussed genetic counseling and offered MFM referral, had anatomy scan and WNL. declined genetic counseling visit. ANC worksheet sent, need to ask peds when genetic testing is done after . ordered growth US 32 and 26 weeks, and plan weekly NSTs from 36 weeks on (2) Missed with demise before 20 completed weeks of gestation: Status: Acute Comment: H/O D&C 09/2023 with SM (3) Hypothyroid: Status: Chronic Qualifiers: Hypothyroidism type: acquired Qualified Code(s): E03.9 - Hypothyroidism, unspecified Comment: Levothyroxine 112mcg 88mcg-repeat labs 08/23 (4) Supervision of high-risk : Status: Acute Qualifiers: Trimester: third trimester Qualified Code(s): O09.93 - Supervision of high risk , unspecified, third trimester Comment: PRR , CODY 12/29 boy PC: Christian Hein Kynzie, Dawson BF: Sulaiman (5) : Status: Acute Qualifiers: Weeks of gestation: 31 weeks Qualified Code(s): Z3A.31 - 31 weeks gestation of Comment: NIPT w gender & carrier- undecided (6) Abnormal TSH: Status: Acute Comment: need free T4 now. If normal, repeat TSH and Free T4 in 3 months Orders: Orders POC Urinalysis 2 Dip (Clinic) Today 10/31/24 1136 <Electronically signed by Vera ojeda MD> Date _ Vera Love MD Cosigner Signature: Date (if applicable) CC: ~ [facility] Work Phone: Progress note Author America Dudley [facility] Note Date/Time November 12, 2024 1:54pm [facility] [address] [place] [address], [address] [place] [address] OFFICE VISIT Date of Service: 11/12/24 MR#: [id number] Acct: [id number] Name: VESTA HERNANDEZ Rep #: [id number] : 1995 Provider: FRANDY Dudley Age/Sex: 29/F Location: [facility] [place] Status: Signed Intake Vital Signs 10/16/24 13:08 10/31/24 11:10 11/12/24 13:36 Height 5 ft 6 in 5 ft 6 in 5 ft 6 in Weight: 172 lb BMI 27.7 BP 136/88 H Intake Visit Reasons: 33wk ob Chief Complaint: 33wk OB K 9 Police Officer Required: No Is patient in pain?: No Allergies No Known Allergies Allergy (Verified 11/12/24 13:34) Medications ?Medication ?Instructions ?Recorded ?Confirmed ?Type levothyroxine 88 mcg tablet 88 mcg PO QDAY #60 tabs 11/12/24 Rx nxhjpdnq-fzq-srxof 120 mcg-dha 25 2 tab PO DAILY 08/0911/12/24 History mg-herb no.293 66.7 mg chew tablet (Alive Premium ) valacyclovir 1 gram tablet 1,000 mg PO BID PRN at onse t of 08/09/24 11/12/24 History (Valtrex) cold sore Last Menstrual Period: [...] 4 current occupational status: unemployed current occupation: [employer] pets and animals: No history of [...] 5-6 times per week duration: 30-45 minutes/day andie/yarsani: None seatbelt use: always do you feel [...] live - full term 8#1oz Female epidural [facility] 03/03/18 [place] 39 live - full term 8#13oz Male epid ural [facility] Dr.Weeman Hilario 10/06/19 [place] 38 live - full term 6#3oz Female epid ural [facility] H Gregory Hilario 05/23/21 [place] 38 live - full term 8#5oz Male epidu ral [facility] Suzanne Hilario 10/16/23 D&C HPI 33wk ob Details: VESTA HERNANDEZ is a 29 year old who presents for routine OB visit. OB Visit CODY Calculator Estimated Delivery Date Method Current WG Current Estimate 12/29/24 LMP (Certain) 33w 2d Other Estimates 12/26/24 Ultrasound #1 33w 5d Expected Delivery Route/Plan Labor Preferences- CB/BF classes: no labor support person: Sulaiman labor intervention preferences: [] pain management options preferred: epidural cut cord/dad catch: cord : yes PP control planned: [] discussed possible routes of delivery and associated risks: [] special requests: [] Specific Issue/Plans Covid status: [] Flu vaccine: [] Tdap vaccine: given Rhogam: na LARC form signed: yes Problem list reviewed and updated with the [...] having weight loss but eating appropriately. 07/24/24 -?-?-?-?-?--?-?-?-?-?-?-?- 17w 3d 157 lb 6 oz (-5 [...] views now completed- pending report. no vb/cramping. 09/17/24 -?-?-?-?-?-?-?-?-?-?-?-?- 25w 2d 163 lb 8 oz (+8 oz) 119/81 Negative -?-?-?--?-?-?-?-?-?-?-?-?- Negative 145 25 -?-?-?-?-?-?-?-?-?-?-?-?- SM- no vb lof go od fm no regular ctx 10/16/24 -?-?-?-?-?-?-?-?-?-?-?-?- 29w 3d 168 lb 8 oz (+5 lb 8 oz) 124/72 Negative -?-?-?-?-?-?-?-?-?-?-?-?- Negative 160 29 -?-?-?-?-?-?-?-?-?-?-?-?- -No VB, LOF. G ood FM Larc, tdap. 28 wk labs pending 10/31/24 -?-?-?-?-?-?-?-?-?-?-?-?- 31w 4d 170 lb (+7 lb) 130/78 Negative -?-?-?-?-?-?-?-?-?-?-?-?- Negative 155 31 -?-?-?-?-?-?-?-?-?-?-?-?- SM- no vb lof go od fm no reuglar ctx 11/12/24 -?-?-?-?-?-?-?-?-?-?-?-?- 33w 2d 172 lb (+9 lb) 136/88 Negative -?-?-?-?-?-?-?-?-?-?-?-?- Negative 140 33 -?-?-?-?-?-?-?-?-?-?-?-?- KW- no vb/lof/ct x. good fm. thyroid labs at next appt. Growth us and NSTs at 36 weeks. ACOG First Trimester First Trimester: Desire for [...] Management Plans, Labor support person(s), Immediate Larc, Circumcision preference, Signs and Symptoms of Preeclampsia, Infant Feeding No , [place] Education and Family Medical Leave or Disability Forms ROS Const Reports system reviewed and no additional complaints, except as documented Eyes Reports system reviewed and no additional complaints, except as documented ENT Reports system reviewed and no additional complaints, except as documented Card Reports system reviewed and no additional complaints, except as documented Resp Reports system reviewed and no additional complaints, except as documented GI Reports system reviewed and no additional complaints, except as documented, Denies nausea and Denies vomiting Reports system reviewed and no additional complaints, except as documented Musc Reports system reviewed and no additional complaints, except as documented Skin/Breast Reports system reviewed and no additional complaints, except as documented Neuro Yes system reviewed and no additional complaints, except as documented Psych Reports system reviewed and no additional complaints, except as documented Endo Reports system reviewed and no additional complaints, except as documented Russell/Lymph Reports system reviewed and no additional complaints, except as documented Aller/Immun Reports system reviewed and no additional complaints, except as documented Exam Const General: cooperative, healthy appearing and no acute distress Orientation: alert, awake and oriented x3 Neck Neck: normal visual inspection and full ROM Resp Effort & Inspection: normal respiratory effort, able to speak in complete sentences and symmetric chest movement GI Inspection: normal to inspection Palpation: soft and other Other: gravid Skin General: no rashes or lesions noted Neuro General: patient alert, patient awake and patient oriented x3 Cognition: normal cognition Speech: speech normal Gait: normal gait Motor: muscle tone normal throughout Extrem General: normal to inspection and full ROM Psych Appearance: grossly normal Mental Status: mental status grossly normal Mood: congruent mood Affect: normal affect Speech and Movement: speech and movement normal Attitude: cooperative Thought Process: normal Thought Content: normal Judgment: judgment good Results POC Urinalysis 2 Dip (Clinic) Office Urine Glucose Negative Last Edit by Fang Malik on 11/12/24 13:44 Office Urine Protein Negative Last Edit by Fang Malik on 11/12/24 13:44 Coding Level of Care Code Off vis,est,level 3 Diagnoses Abnormal genetic test during O28.5 Missed with demise before 20 completed weeks of gestation O02.1 Acquired hypothyroidism E03.9 Hypothyroidism type: acquired Supervision of high risk in third trimester O09. Trimester: third trimester 33 weeks gestation of Z3A.33 Weeks of gestation: 33 weeks Abnormal TSH R79.89 Assessment and Plan Assessment and Plan (1) Abnormal genetic test during : Status: Acute Comment: NIPT XYY, discussed genetic counseling and offered MFM referral, had anatomy scan and WNL. declined genetic counseling visit. ANC worksheet sent, need to ask peds when genetic testing is done after . ordered growth US 32 and 26 weeks, and plan weekly NSTs from 36 weeks on (2) Missed with demise before 20 completed weeks of gestation: Status: Acute Comment: H/O D&C 09/2023 with (3) Hypothyroid: Status: Chronic Qualifiers: Hypothyroidism type: acquired Qualified Code(s): E03.9 - Hypothyroidism, unspecified Comment: Levothyroxine 112mcg 88mcg-repeat labs 08/23 (4) Supervision of high-risk : Status: Acute Qualifiers: Trimester: third trimester Qualified Code(s): O09.93 - Supervision of high risk , unspecified, third trimester Comment: PRR , CODY 12/29 boy PC: Christian Hein Kynzie, Dawson BF: Sulaiman (5) : Status: Acute Qualifiers: Weeks of gestation: 33 weeks Qualified Code(s): Z3A.33 - 33 weeks gestation of Comment: NIPT w gender & carrier- undecided (6) Abnormal TSH: Status: Acute Comment: need free T4 now. If normal, repeat TSH and Free T4 in 3 months Orders: Orders POC Urinalysis 2 Dip (Clinic) Today Plan Details Additional Comments: ACOG trimester education reviewed and updated. see problem list details for updated plan management information and see below for orders placed at this visit. GA appropriate handout given. 11/12/24 9677 <Electronically signed by America selby CNM> Date _ America Dudley CNM Cosigner Signature: Date (if applicable) CC: ~ [facility] Work Phone: Progress note Author Grazyna De Leon [facility] Note Date/Time November 25, 2024 10:51am [facility] [address], [address] [place] [address] OFFICE VISIT Date of Service: 11/25/24 MR#: [id number] Acct: [id number] Name: MATY HERNANDEZSHAKILA West Rep #: [id number] : 1995 Provider: TY De Leon Age/Sex: 29/F Location: [facility] [place] Status: Signed Intake Vital Signs 10/16/24 13:08 11/12/24 13:36 11/25/24 10:24 Height 5 ft 6 in 5 ft 6 in 5 ft 6 in Weight: 172 lb 174 lb 6 oz BMI 27.7 28.1 BP 136/88 H 123/83 H Intake Visit Reasons: 35wk ob Chief Complaint: 35 Week OB K 9 Police Officer Required: No Is patient in pain?: No Allergies No Known Allergies Allergy (Verified 11/25/24 10:25) Medications ?Medication ?Instructions ?Recorded ?Confirmed ?Type levothyroxine 88 mcg tablet 88 mcg PO QDAY #60 tabs 11/25/24 Rx kfwbzpav-jnx-vfpgf 120 mcg-dha 25 2 tab PO DAILY 08/0911/25/24 History mg-herb no.293 66.7 mg chew tablet (Alive Premium ) valacyclovir 1 gram tablet 1,000 mg PO BID PRN at onse t of 08/09/24 11/25/24 History (Valtrex) cold sore Last Menstrual Period: 03/24/24 Zika: Zika virus [...] 4 current occupational status: unemployed current occupation: [employer] pets and animals: No history of [...] 5-6 times per week duration: 30-45 minutes/day andie/yarsani: None seatbelt use: always do you feel safe at home: Yes additional 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: Sulaiman 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 Date Name GA/Weeks Outcome Route Bth Weight Gen Labor Lgth Anesthesia Del Locatn Provider FOB 03/23/14 Melv[place] 40 live - full term 8#1oz Female epidural [facility] 03/03/18 [place] 39 live - full term 8#13oz Male epid ural [facility] Dr.Weeman Hilario 10/06/19 [place] 38 live - full term 6#3oz Female epid ural [facility] Pj Hilario 05/23/21 [place] 38 live - full term 8#5oz Male epidu ral [facility] Suzanne Hilario 10/16/23 D&C HPI 35wk ob Details: VESTA HERNANDEZ is a 29 year old who presents for routine OB visit. OB Visit CODY Calculator Estimated Delivery Date Method Current WG Current Estimate 12/29/24 LMP (Certain) 35w 1d Other Estimates 12/26/24 Ultrasound #1 35w 4d Expected Delivery Route/Plan Labor Preferences- CB/BF classes: no labor support person: Sulaiman labor intervention preferences: [] pain management options preferred: epidural cut cord/dad catch: cord : yes PP control planned: [] discussed possible routes of delivery and associated risks: [] special requests: [] Specific Issue/Plans Covid status: [] Flu vaccine: [] Tdap vaccine: given Rhogam: na LARC form signed: yes Problem list reviewed and updated with the most current plan of care details and appropriate orders placed. Relevant counseling for the gestational age provided. Continue routine care and follow up unless otherwise noted in visit notes/problem list details Initial Weight: 163 lb Date -?-?-?-?-?-?-?-?-?-?-?-?- EGA Weight BP Urine Prot -?-?-?-?-?-?-?-?-?-?-?-?- Glucose FHR FuHt Pres Dilation -?-?--?-?-?-?-?-?-?-?-?-?- Effaced St Visit Note 05/30/24 -?-?-?-?-?-?-?-?-?-?-?-?- 9w [...] views now completed- pending report. no vb/cramping. 09/17/24 -?-?-?-?--?-?-?-?-?-?-?-?- 25w 2d 163 lb 8 oz (+8 oz) 119/81 Negative -?-?-?-?-?-?-?-?-?-?-?-?- Negative 145 25 -?-?-?-?-?-?-?-?-?-?-?-?- SM- no vb lof go od fm no regular ctx 10/16/24 -?-?-?-?-?-?-?-?-?-?-?-?- 29w 3d 168 lb 8 oz (+5 lb 8 oz) 124/72 Negative -?-?-?-?-?-?-?-?-?-?-?-?- Negative 160 29 -?-?-?-?-?-?-?-?-?-?-?-?- -No VB, LOF. G ood FM Larc, tdap. 28 wk labs pending 10/31/24 -?-?-?-?-?-?-?-?-?-?-?-?- 31w 4d 170 lb (+7 lb) 130/78 Negative -?-?-?-?-?-?-?-?-?-?-?-?- Negative 155 31 -?-?-?-?-?-?-?-?-?-?-?-?- SM- no vb lof go od fm no reuglar ctx 11/12/24 -?-?-?-?-?-?-?-?-?-?-?-?- 33w 2d 172 lb (+9 lb) 136/88 Negative -?-?-?-?-?-?-?-?-?-?-?-?- Negative 140 33 -?-?-?-?-?-?-?-?-?-?-?-?- KW- no vb/lof/ct x. good fm. thyroid labs at next appt. Growth us and NSTs at 36 weeks. 11/25/24 -?-?-?-?-?-?-?-?-?--?-?-?- 35w 1d 174 lb 6 oz (+11 lb 6 oz) 123/83 Negative -?-?-?-?-?-?-?-?-?-?-?-?- Negative 142 35 -?-?-?-?-?-?-?-?-?-?-?-?- MH-No VB, LOF. G ood FM. Thyroid labs today as did not do last visit. ACOG First Trimester First Trimester: Desire for [...] Management Plans, Labor support person(s), Immediate Larc, Circumcision preference, Signs and Symptoms of Preeclampsia, Feeding No , [place] Education and Family Medical Leave or Disability Forms ROS Const Reports system reviewed and no additional complaints, except as documented GI Denies abdominal pain, Denies nausea and Denies vomiting Exam Const General: cooperative Nutritional Appearance: well nourished GI Palpation: soft, nontender and other (gravid) Results POC Urinalysis 2 Dip (Clinic) Office Urine Glucose Negative Last Edit by Marilee Helton on 11/25/24 10 :30 Office Urine Protein Negative Last Edit by Marilee Helton on 11/25/24 10 :30 Coding Level of Care Code Off vis,est,level 3 Diagnoses Supervision of high risk in third trimester O09.93 Trimester: third trimester 35 weeks gestation of Z3A.35 Weeks of gestation: 35 weeks Acquired hypothyroidism E03.9 Hypothyroidism type: acquired Missed with demise before 20 completed weeks of gestation O02.1 Abnormal genetic test during O28.5 ES (amniotic fluid index) borderline low O28.8 Abnormal TSH R79.89 Assessment and Plan Assessment and Plan (1) Supervision of high-risk : Status: Acute Qualifiers: Trimester: third trimester Qualified Code(s): O09.93 - Supervision of high risk , unspecified, third trimester Comment: PRR , CODY 12/29 boy PC: Christian Hein Kynzie, Dawson BF: Sulaiman (2) : Status: Acute Qualifiers: Weeks of gestation: 35 weeks Qualified Code(s): Z3A.35 - 35 weeks gestation of Comment: NIPT w gender & carrier- undecided (3) Hypothyroid: Status: Chronic Qualifiers: Hypothyroidism type: acquired Qualified Code(s): E03.9 - Hypothyroidism, unspecified Comment: Levothyroxine 112mcg 88mcg-repeat labs 08/23 (4) Missed with demise before 20 completed weeks of gestation: Status: Acute Comment: H/O D&C 09/2023 with SM (5) Abnormal genetic test during : Status: Acute Comment: NIPT XYY, discussed genetic counseling and offered MFM referral, had anatomy scan and WNL. declined genetic counseling visit. ANC worksheet sent, need to ask peds when genetic testing is done after . ordered growth US 32 and 26 weeks, and plan weekly NSTs from 36 weeks on (6) ES (amniotic fluid index) borderline low: Status: Acute (7) Abnormal TSH: Status: Acute Comment: need free T4 now. If normal, repeat TSH and Free T4 in 3 months Orders: Orders POC Urinalysis 2 Dip (Clinic) Today Plan problem list reviewed and updated for most current plan of care and appropriate orders placed. Relevant counseling for the gestational age appropriate provided and ACOG education checklist updated. Continue routine care and follow up. 11/25/24 1051 <Electronically signed by Grazyna selby LEGAL PROCESS SPECIALIST LEGAL PROCESS SPECIALIST-C> Date _ Grazyna De Leon LEGAL PROCESS SPECIALIST LEGAL PROCESS SPECIALIST-C Cosigner Signature: Date (if applicable) CC: ~ [facility] Work Phone: Reason for referral (narrative)No reason for referral information [facility]WBl[facility] Work Phone: Summary Purpose Family History No Family History Records Found Relationship Condition Age at Onset Recorded Date/T [...] aunt Disorder of thyroid Unknown Advance Directives No Advanced Directives Records Found Advance Directive Response Recorded Date/ Time Living Will No May 23, 2021 3:03am Power of Road Maker No May 23 3:03am Advance Directive Response Recorded Date/ Time Living Will No March 29 4:04am Do you have a Healthcare Power of Road Maker? No March 29, 2024 4:04am Advance Directive Response Recorded Date/ Time Do you have a Healthcare Power of Road Maker? No December 04, 2024 2:58pm Chief Complaint and Reason for Visit Chief [...] April 15 8:58am Acquired hypothyroidism April 15, 025 8:58am Establishing care with new doctor, alexandra cuadra for April 15, 2024 8:58am Fatigue April 15, 2024 8:58am Goiter April 15, 2024 8:58am Recurrent kidney stones April 15, 025 8:58am Abnormal TSH May 30, 2024 [...] 2:23pm Hypothyroid August 23, 2024 2:23 pm Chief Complaint Admit Date NOB LMP 03/24May 30, 2024 12:5 7pm 13wk ob June 27, 2024 2:59pm 17wk ob July 24, 2024 2:06p m Thyroid August 09, 2024 2:10 pm 21wk ob August 23, 2024 2:23 pm 25 wk ob September 17, 2024 10:4 4am Reason for Visit Admit Date Abnormal TSH [...] 2:23pm Hypothyroid August 23, 2024 2:23 pm Abnormal genetic test during J radha 2024 10:44am Abnormal TSH September 17, 2024 10:4 4am Missed with d emise before 20 completed weeks of gestation September 17, 2024 10:44am September 17, 2024 10:4 4am Supervision of high-risk September 17, 2024 10:44am Hypothyroid September 17, 2024 10:4 4am Chief Complaint Admit Date 13wk ob June 27, 2024 2:59pm 17wk ob July 24, 2024 2:06p m Thyroid August 09, 2024 2:10 pm wk ob August 23, 2024 2:23 pm 25 wk ob September 17, 2024 10:4 4am 28 wk ob/glucose October 16, 2024 12 :48pm Reason for Visit Admit Date Abnormal genetic test during M ay 2024 [...] 2:23pm Hypothyroid August 23, 2024 2:23 pm Abnormal genetic test during J radha 2024 10:44am Abnormal TSH September 17, 2024 10:4 4am Missed with d emise before 20 completed weeks of gestation September 17, 2024 10:44am September 17, 2024 10:4 4am Supervision of high-risk September 17, 2024 10:44am Hypothyroid September 17, 2024 10:4 4am Abnormal genetic test during A ugust 2024 12:48pm Abnormal TSH October 16, 2024 12 :48pm Missed with d emise before 20 completed weeks of gestation October 16, 2024 12:48pm October 16, 2024 12 :48pm Supervision of high-risk Augus t 2024 12:48pm Hypothyroid October 16, 2024 12 :48pm Chief Complaint Admit Date 17wk ob July 24, 2024 2:06p m Thyroid August 09, 2024 2:10 pm 21wk ob August 23, 2024 2:23 pm 25 wk ob September 17, 2024 10:4 4am 28 wk ob/glucose October 16, 2024 12 :48pm 30 wk ob October 31, 2024 11:01am Reason for Visit Admit Date Abnormal genetic test during M ay 2024 [...] 2:23pm Hypothyroid August 23, 2024 2:23 pm Abnormal genetic test during J radha 2024 10:44am Abnormal TSH September 17, 2024 10:4 4am Missed with d emise before 20 completed weeks of gestation September 17, 2024 10:44am September 17, 2024 10:4 4am Supervision of high-risk September 17, 2024 10:44am Hypothyroid September 17, 2024 10:4 4am Abnormal genetic test during A ugust 2024 12:48pm Abnormal TSH October 16, 2024 12 :48pm Missed with d emise before 20 completed weeks of gestation October 16, 2024 12:48pm October 16, 2024 12 :48pm Supervision of high-risk Augus t 2024 12:48pm Hypothyroid October 16, 2024 12 :48pm Abnormal genetic test during S eptember 2024 11:01am Abnormal TSH October 31, 2024 11:01am Missed with d emise before 20 completed weeks of gestation October 31, 2024 11:01am October 31, 2024 11:01am Supervision of high-risk Shabana nolan 2024 11:01am Hypothyroid October 31, 2024 11:01am Chief Complaint Admit Date 17wk ob July 24, 2024 2:06p m Thyroid August 09, 2024 2:10 pm 21wk ob August 23, 2024 2:23 pm 25 wk ob September 17, 2024 10:4 4am 28 wk ob/glucose October 16, 2024 12 :48pm 30 wk ob October 31, 2024 11:01am 32 WEEKS November 11, 2024 11:40am 33wk ob November 12, 2024 1:33pm Reason for Visit Admit Date Abnormal genetic test during M ay 2024 [...] 2:23pm Hypothyroid August 23, 2024 2:23 pm Abnormal genetic test during J radha 2024 10:44am Abnormal TSH September 17, 2024 10:4 4am Missed with d emise before 20 completed weeks of gestation September 17, 2024 10:44am September 17, 2024 10:4 4am Supervision of high-risk September 17, 2024 10:44am Hypothyroid September 17, 2024 10:4 4am [facility] 12:48[facility] Abnormal TSH October 16, 2024 12 :48pm Missed with d emise before 20 completed weeks of gestation October 16, 2024 12:48pm October 16, 2024 12 :48pm Supervision of high-risk Augus t 2024 12:48pm Hypothyroid October 16, 2024 12 :48pm Abnormal genetic test during S eptember 2024 11:01am Abnormal TSH October 31, 2024 11:01am Missed with d emise before 20 completed weeks of gestation October 31, 2024 11:01am October 31, 2024 11:01am Supervision of high-risk Shabana diegoer 2024 11:01am Hypothyroid October 31, 2024 11:01am Abnormal genetic test during S eptember 2024 1:33pm Abnormal TSH November 12, 2024 1:33pm Missed with d emise before 20 completed weeks of gestation November 12, 2024 1:33pm November 12, 2024 1:33pm Supervision of high-risk Shabana diego 2024 1:33pm Hypothyroid November 12, 2024 1:33pm Chief Complaint Admit Date Thyroid August 09, 2024 2:10 pm 21wk ob August 23, 2024 2:23 pm 25 wk ob September 17, 2024 10:4 4am 28 wk ob/glucose October 16, 2024 12 :48pm 30 wk ob October 31, 2024 11:01am 32 WEEKS November 11, 2024 11:40am 33wk ob November 12, 2024 1:33pm ES BORDERLINE LOW November 18, 2024 5:53pm 35wk ob November 25, 2024 10:22am Reason for Visit Admit Date Hypothyroid August 09, 2024 2:10 pm Abnormal genetic test during J une 2024 2:23pm Abnormal TSH August 23, 2024 2:23 pm Missed with d emise before 20 completed weeks of gestation August 23, 2024 2:23pm August 23, 2024 2:23 pm Supervision of high-risk August 23, 2024 2:23pm Hypothyroid August 23, 2024 2:23 pm Abnormal genetic test during J radha 2024 10:44am Abnormal TSH September 17, 2024 10:4 4am Missed with d emise before 20 completed weeks of gestation September 17, 2024 10:44am September 17, 2024 10:4 4am Supervision of high-risk September 17, 2024 10:44am Hypothyroid September 17, 2024 10:4 4am Abnormal genetic test during A ugust 2024 12:48pm Abnormal TSH October 16, 2024 12 :48pm Missed with d emise before 20 completed weeks of gestation October 16, 2024 12:48pm October 16, 2024 12 :48pm Supervision of high-risk Augus t 2024 12:48pm Hypothyroid October 16, 2024 12 :48pm Abnormal genetic test during S epteer 2024 11:01am Abnormal TSH October 31, 2024 11:01am Missed with d emise before 20 completed weeks of gestation October 31, 2024 11:01am October 31, 2024 11:01am Supervision of high-risk [facility] 2024 11:01am Hypothyroid October 31, 2024 11:01am [facility] 1:33[facility] Abnormal TSH November 12, 2024 1:33pm Missed with d emise before 20 completed weeks of gestation November 12, 2024 1:33pm November 12, 2024 1:33pm Supervision of high-risk [facility] 2024 1:33pm Hypothyroid November 12, 2024 1:33pm Abnormal genetic test during S epteer 2024 10:22am Abnormal TSH November 25, 2024 10:22am ES (amniotic fluid index) borderline lo w November 25, 2024 10:22am Missed with d emise before 20 completed weeks of gestation November 25, 2024 10:22am November 25, 2024 10:22am [facility] 10:22am Hypothyroid November 25, 2024 10:22am Chief Complaint Admit Date Thyroid August 09, 2024 2:10 pm 21wk ob August 23, 2024 2:23 pm 25 wk ob September 17, 2024 10:4 4am 28 wk ob/glucose October 16, 2024 12 :48pm 30 wk ob October 31, 2024 11:01am 32 WEEKS November 11, 2024 11:40am 33wk ob November 12, 2024 1:33pm ES BORDERLINE LOW November 18, 2024 5:53pm 35wk ob November 25, 2024 10:22am 36wk ob/nst December 02, 2024 1: 17pm Reason for Visit Admit Date Hypothyroid August 09, 2024 2:10 pm Abnormal genetic test during J une 2024 2:23pm Abnormal TSH August 23, 2024 2:23 pm Missed with d emise before 20 completed weeks of gestation August 23, 2024 2:23pm August 23, 2024 2:23 pm Supervision of high-risk August 23, 2024 2:23pm Hypothyroid August 23, 2024 2:23 pm Abnormal genetic test during J radha 2024 10:44am Abnormal TSH September 17, 2024 10:4 4am Missed with d emise before 20 completed weeks of gestation September 17, 2024 10:44am September 17, 2024 10:4 4am Supervision of high-risk September 17, 2024 10:44am Hypothyroid September 17, 2024 10:4 4am Abnormal genetic test during A ugust 2024 12:48pm Abnormal TSH October 16, 2024 12 :48pm Missed with d emise before 20 completed weeks of gestation October 16, 2024 12:48pm October 16, 2024 12 :48pm Supervision of high-risk Augus t 2024 12:48pm Hypothyroid October 16, 2024 12 :48pm Abnormal genetic test during S eptember 2024 11:01am Abnormal TSH October 31, 2024 11:01am Missed with d emise before 20 completed weeks of gestation October 31, 2024 11:01am October 31, 2024 11:01am Supervision of high-risk Septe mber 2024 11:01am Hypothyroid October 31, 2024 11:01am Abnormal genetic test during S eptember 2024 1:33pm Abnormal TSH November 12, 2024 1:33pm Missed with d emise before 20 completed weeks of gestation November 12, 2024 1:33pm November 12, 2024 1:33pm [facility] 20[facility] 1:33pm Hypothyroid November 12, 2024 1:33pm Abnormal genetic test during S eptember 2024 10:22am Abnormal TSH November 25, 2024 10:22am ES (amniotic fluid index) borderline lo w November 25, 2024 10:22am Missed with d emise before 20 completed weeks of gestation November 25, 2024 10:22am November 25, 2024 10:22am [facility] 20[facility] 10:22am Hypothyroid November 25, 2024 10:22am Abnormal genetic test during O ctober 2024 1:17pm Abnormal TSH December 02, 2024 1: 17pm ES (amniotic fluid index) borderline lo w December 02, 2024 1:17pm Missed with d emise before 20 completed weeks of gestation December 02, 2024 1:17pm December 02, 2024 1: 17pm Supervision of high-risk Octob er 2024 1:17pm Hypothyroid December 02, 2024 1: 17pm Chief Complaint Admit Date 25 wk ob September 17, 2024 10:4 4am 28 wk ob/glucose October 16, 2024 12 :48pm 30 wk ob October 31, 2024 11:01am 32 WEEKS November 11, 2024 11:40am 33wk ob November 12, 2024 1:33pm ES BORDERLINE LOW November 18, 2024 5:53pm 35wk ob November 25, 2024 10:22am 36wk ob/nst December 02, 2024 1: 17pm 36 WEEKS December 04, 2024 12 :20pm VAGINAL DELIVERY December 04, 2024 1: 16pm LABOR AND DELIVERY December 04, 2024 11 :57pm VAGINAL DELIVERY December 05, 2024 5: 34am VAGINAL DELIVERY December 06, 2024 7 :53am VAGINAL DELIVERY December 07, 2024 7 :04am Reason for Visit Admit Date Abnormal genetic test during J radha 2024 10:44am Abnormal TSH September 17, 2024 10:4 4am Missed with d emise before 20 completed weeks of gestation September 17, 2024 10:44am September 17, 2024 10:4 4am Supervision of high-risk September 17, 2024 10:44am Hypothyroid September 17, 2024 10:4 4am Abnormal genetic test during A ugust 2024 12:48pm Abnormal TSH October 16, 2024 12 :48pm Missed with d emise before 20 completed weeks of gestation October 16, 2024 12:48pm October 16, 2024 12 :48pm Supervision of high-risk Augus t 2024 12:48pm Hypothyroid October 16, 2024 12 :48pm [facility] 11:01am Abnormal TSH October 31, 2024 11:01am Missed with d emise before 20 completed weeks of gestation October 31, 2024 11:01am October 31, 2024 11:01am Supervision of high-risk [facility] 2024 11:01am Hypothyroid October 31, 2024 11:01am Abnormal genetic test during S epteer 2024 1:33pm Abnormal TSH November 12, 2024 1:33pm Missed with d emise before 20 completed weeks of gestation November 12, 2024 1:33pm November 12, 2024 1:33pm Supervision of high-risk [facility] 2024 1:33pm Hypothyroid November 12, 2024 1:33pm Abnormal genetic test during S epteer 2024 10:22am Abnormal TSH November 25, 2024 10:22am Missed with d emise before 20 completed weeks of gestation November 25, 2024 10:22am November 25, 2024 10:22am Supervision of high-risk [facility] 2024 10:22am Hypothyroid November 25, 2024 10:22am ES (amniotic fluid index) borderline lo w November 25, 2024 10:22am Abnormal genetic test during O ctober 2024 1:17pm Abnormal TSH December 02, 2024 1: 17pm Missed with d emise before 20 completed weeks of gestation December 02, 2024 1:17pm December 02, 2024 1: 17pm Supervision of high-risk Octob er 2024 1:17pm Hypothyroid December 02, 2024 1: 17pm ES (amniotic fluid index) borderline lo w December 02, 2024 1:17pm Abnormal genetic test during O ctober 2024 1:16pm Abnormal TSH December 04, 2024 1: 16pm Missed with d emise before 20 completed weeks of gestation December 04, 2024 1:16pm Oligohydramnios in third trimester Octob er 2024 1:16pm Positive GBS test December 04, 2024 1: 16pm December 04, 2024 1: 16pm Supervision of high-risk Octob er 2024 1:16pm Vaginal delivery December 04, 2024 1: 16pm Hypothyroid December 04, 2024 1: 16pm Additional Source Comments INFORMATION SOURCE (unrecogn ized section and content) DATE CREATED AUTHOR 08/17/2017 [facility] DATE CREATED AUTHOR AUTHOR'S ORGANIZ ATION 07/05/2024 [facility] DATE CREATED AUTHOR AUTHOR'S ORGANIZ ATION 08/22/2024 [facility] DATE CREATED AUTHOR AUTHOR'S ORGANIZ ATION 12/27/2024 [facility] Goals (unrecognized section and content) Type Care Experience Labor Preferences-CB /BF classes: []labor support person: []labor intervention preferences: []pain management options preferred: []cut cord/dad catch: []: []PP control planned: []discussed possible routes of delivery and associated risks: []special requests: [] Care Experience Labor Preferences-CB /BF classes: nolabor support person: Sejalbor intervention preferences: []pain management options preferred: epiduralcut cord/dad catch: cordbreastfeeding: yesPP control planned: []discussed possible routes of delivery and associated risks: []special requests: [] Source Comments (unrecognize d section and content) In the event this informatio n is protected by the Federal Confidentiality of Alcohol and Drug Abuse Patient Records regulations: The Federal rules restrict any use of the information to criminally investigate or prosecute any alcohol or drug abuse patient.[facility] Hospital[facility] the event this information is protected by the Federal Confidentiality of Alcohol and Drug Abuse Patient Records regulations: The Federal rules restrict any use of the information to criminally investigate or prosecute any alcohol or drug abuse patient.[facility] Hospital[facility] the event this information is protected by the Federal Confidentiality of Alcohol and Drug Abuse Patient Records regulations: The Federal rules restrict any use of the information to criminally investigate or prosecute any alcohol or drug abuse patient.[facility] HospitalIn the event this information is protected by the Federal Confidentiality of Alcohol and Drug Abuse Patient Records regulations: The Federal rules restrict any use of the information to criminally investigate or prosecute any alcohol or drug abuse patient.[facility] HospitalIn the event this information is protected by the Federal Confidentiality of Alcohol and Drug Abuse Patient Records regulations: The Federal rules restrict any use of the information to criminally investigate or prosecute any alcohol or drug abuse patient.[facility] Reason for Visit (unrecogniz ed section and [...] Care Teams (unrecognized sec tion and content) Glazing Machine Operator Relationship Specialty Start Date End Date Mary Nunn MD [address] [place], [place] [id number] PCP - General Internal Medicine 05/27/24 Team [...] June 13, 2024 End: June 13, 2024 Glazing 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 Amelia Wong , DO Referring Provider Activ e Start: July [...] Status: Inactive Member Role/Relationship Status Dates Dr. aMry Nunn MD Primary Care Provider Active Start: [...] Referring Provider Active Start: August 23, 2024 Team Status: Inactive Member Role/Relationship Status Dates Dr. Mary Nunn MD Primary Care Provider Active Start: August 23, 2024 End: August 23, 2024 Devora Go CNM Attending Provider Active Start: August 23, 2024 End: August 23, 2024 Devora Go CNM Referring Provider Active Start: August 23, 2024 End: August 23, 2024 Team Status: Inactive Member Role/Relationship Status Dates Dr. Mary Nunn MD Primary Care Provider Active Start: September 17, 2024 End: September 17, 2024 Dr. Mary Nunn MD Referring Provider Active Start: September 17, 2024 End: September 17, 2024 Dr. Vera Love MD Attending Provider Active Start: September 17, 2024 End: September 17, 2024 Team Status: Inactive Member Role/Relationship Status [...] 2024 End: August 23, 2024 Team Status: Inactive Member Role/Relationship Status Dates Dr. Mary Nunn MD Primary Care Provider Active Start: August 23, 2024 End: August 23, 2024 Devora Go CNM Attending Provider Active Start: August 23, 2024 End: August 23, 2024 Devora Go CNM Referring Provider Active Start: August 23, 2024 End: August 23, 2024 Team Status: Inactive Member Role/Relationship Status Dates Dr. Mary Nunn MD Primary Care Provider Active Start: September 17, 2024 End: September 17, 2024 Dr. Mary Nunn MD Referring Provider Active Start: September 17, 2024 End: September 17, 2024 Dr. Vera Love MD Attending Provider Active Start: September 17, 2024 End: September 17, 2024 Team Status: Inactive Member Role/Relationship Status Dates Dr. Mary Nunn MD Primary Care Provider Active Start: October 16, 2024 End: October 16, 2024 Dr. Mary Nunn MD Referring Provider Active Start: October 16, 2024 End: October 16, 2024 Grazyna De Leon LEGAL PROCESS SPECIALIST, LEGAL PROCESS SPECIALIST-C Attending Provider Active Start: October 16, 2024 End: October 16, 2024 Team Status: Active Member Role/Relationship Status Dates Dr. Mary Nunn MD Primary Care Provider Active Start: October 16, 2024 America Dudley CNM Attending Provider Active S tart: October 16, 2024 Team Status: Inactive Member Role/Relationship Status Dates Dr. Mary Nunn MD Primary Care Provider Active Start: October 16, 2024 End: October 16, 2024 America Dudley CNM Attending Provider Active S tart: October 16, 2024 End: October 16, 2024 Team Status: Inactive Member Role/Relationship Status [...] July 24, 2024 Dr. Amelia Wong , Referring Provider Activ e Start: July 24, [...] 2024 End: August 23, 2024 Team Status: Inactive Member Role/Relationship Status Dates Dr. Mary Nunn MD Primary Care Provider Active Start: August 23, 2024 End: August 23, 2024 Devora Go CNM Attending Provider Active Start: August 23, 2024 End: August 23, 2024 Devora Go CNM Referring Provider Active Start: August 23, 2024 End: August 23, 2024 Team Status: Inactive Member Role/Relationship Status Dates Dr. Mary Nunn MD Primary Care Provider Active Start: September 17, 2024 End: September 17, 2024 Dr. Mary Nunn MD Referring Provider Active Start: September 17, 2024 End: September 17, 2024 Dr. Vera Love MD Attending Provider Active Start: September 17, 2024 End: September 17, 2024 Team Status: Inactive Member Role/Relationship Status Dates Dr. Mary Nunn MD Primary Care Provider Active Start: October 16, 2024 End: October 16, 2024 Dr. Mary Nunn MD Referring Provider Active Start: October 16, 2024 End: October 16, 2024 Grazyna De Leon LEGAL PROCESS SPECIALIST, LEGAL PROCESS SPECIALIST-C Attending Provider Active Start: October 16, 2024 End: October 16, 2024 Team Status: Inactive Member Role/Relationship Status Dates Dr. Mary Nunn MD Primary Care Provider Active Start: October 16, 2024 End: October 16, 2024 America Dudley CNM Attending Provider Active S tart: October 16, 2024 End: October 16, 2024 Team Status: Inactive Member Role/Relationship Status Dates Dr. Mary Nunn MD Primary Care Provider Active Start: October 31, 2024 End: October 31, 2024 Dr. Mary Nunn MD Referring Provider Active Start: October 31, 2024 End: October 31, 2024 Dr. Vera Love MD Attending Provider Active Start: October 31, 2024 End: October 31, 2024 Team Status: Active Member Role/Relationship Status Dates Dr. Mary Nunn MD Primary Care Provider Active Start: November 11, 2024 Dr. Vera Love MD Attending Provider Active Start: November 11, 2024 Dr. Vera Love MD Referring Provider Active Start: November 11, 2024 Team Status: Inactive Member Role/Relationship Status Dates Dr. Mary Nunn MD Primary Care Provider Active Start: November 12, 2024 End: November 12, 2024 Dr. Mary Nunn MD Referring Provider Active Start: November 12, 2024 End: November 12, 2024 America Dudley CNM Attending Provider Active S tart: November 12, 2024 End: November 12, 2024 Team Status: Active Member Role/Relationship Status Dates Dr. Mary Nunn MD Primary care physician Active Team Status: Inactive Member Role/Relationship Status Dates Dr. Mary Nunn MD Primary care physician Active Start: August 09, 2024 End: August 09, 2024 Dr. Mary Nunn MD Referring Provider Active Start: August 09, 2024 End: August 09, 2024 Dr. Meliton Herr MD Attending physician Active St art: August 09, 2024 End: August 09, 2024 Team Status: Inactive Member Role/Relationship Status Dates Dr. Mary Nunn MD Primary care physician Active Start: August 23, 2024 End: August 23, 2024 Dr. Mary Nunn MD Referring Provider Active Start: August 23, 2024 End: August 23, 2024 Devora Go CNM Attending physician Active Start: August 23, 2024 End: August 23, 2024 Team Status: Inactive Member Role/Relationship Status Dates Dr. Mary Nunn MD Primary care physician Active Start: August 23, 2024 End: August 23, 2024 Devora Go CNM Attending physician Active Start: August 23, 2024 End: August 23, 2024 Devora Go CNM Referring Provider Active Start: August 23, 2024 End: August 23, 2024 Team Status: Inactive Member Role/Relationship Status Dates Dr. Mary Nunn MD Primary care physician Active Start: September 17, 2024 End: September 17, 2024 Dr. Mary Nunn MD Referring Provider Active Start: September 17, 2024 End: September 17, 2024 Dr. eVra Love MD Attending physician Active Start: September 17, 2024 End: September 17, 2024 Team Status: Inactive Member Role/Relationship Status Dates Dr. Mary Nunn MD Primary care physician Active Start: October 16, 2024 End: October 16, 2024 Dr. Mary Nunn MD Referring Provider Active Start: October 16, 2024 End: October 16, 2024 Grazyna De Leon LEGAL PROCESS SPECIALIST, LEGAL PROCESS SPECIALIST-C Attending physician Active Start: October 16, 2024 End: October 16, 2024 Team Status: Inactive Member Role/Relationship Status Dates Dr. Mary Nunn MD Primary care physician Active Start: October 16, 2024 End: October 16, 2024 America Dudley CNM Attending physician Active Start: October 16, 2024 End: October 16, 2024 Team Status: Inactive Member Role/Relationship Status Dates Dr. Mary Nunn MD Primary care physician Active Start: October 31, 2024 End: October 31, 2024 Dr. Mary Nunn MD Referring Provider Active Start: October 31, 2024 End: October 31, 2024 Dr. Vera Love MD Attending physician Active Start: October 31, 2024 End: October 31, 2024 Team Status: Inactive Member Role/Relationship Status Dates Dr. Mary Nunn MD Primary care physician Active Start: November 11, 2024 End: November 11, 2024 Dr. Vera Love MD Attending physician Active Start: November 11, 2024 End: November 11, 2024 Dr. Vera Love MD Referring Provider Active Start: November 11, 2024 End: November 11, 2024 Team Status: Inactive Member Role/Relationship Status Dates Dr. Mary Nunn MD Primary care physician Active Start: November 12, 2024 End: November 12, 2024 Dr. Mary Nunn MD Referring Provider Active Start: November 12, 2024 End: November 12, 2024 America Dudley CNM Attending physician Active Start: November 12, 2024 End: November 12, 2024 Team Status: Inactive Member Role/Relationship Status Dates Dr. Mary Nunn MD Primary care physician Active Start: November 18, 2024 End: November 18, 2024 Dr. Vera Love MD Attending physician Active Start: November 18, 2024 End: November 18, 2024 Dr. Vera Love MD Referring Provider Active Start: November 18, 2024 End: November 18, 2024 Team Status: Inactive Member Role/Relationship Status Dates Dr. Mary Nunn MD Primary care physician Active Start: November 25, 2024 End: November 25, 2024 Dr. Mary Nunn MD Referring Provider Active Start: November 25, 2024 End: November 25, 2024 Grazyna De Leon NP, LEGAL PROCESS SPECIALIST-C Attending physician Active Start: November 25, 2024 End: November 25, 2024 Team Status: Active Member Role/Relationship Status Dates Dr. Mary Nunn MD Primary care physician Active Start: November 25, 2024 America Dudley CNM Attending physician Active Start: November 25, 2024 America Dudley CNM Referring Provider Active S tart: November 25, 2024 Team Status: Inactive Member Role/Relationship Status Dates Dr. Mary Nunn MD Primary care physician Active Start: November 25, 2024 End: November 25, 2024 America Dudley CNM Attending physician Active Start: November 25, 2024 End: November 25, 2024 America Dudley CNM Referring Provider Active S tart: November 25, 2024 End: November 25, 2024 Team Status: Inactive Member Role/Relationship Status Dates Dr. Mary Nunn MD Primary care physician Active Start: December 02, 2024 End: December 02, 2024 Dr. Mary Nunn MD Referring Provider Active Start: December 02, 2024 End: December 02, 2024 America Dudley CNM Attending physician Active Start: December 02, 2024 End: December 02, 2024 Team Status: Active Member Role/Relationship Status Dates Dr. Mary Nunn MD Primary care physician Active Start: December 02, 2024 America Dudley CNM Attending physician Active Start: December 02, 2024 Team Status: Inactive Member Role/Relationship Status Dates Dr. Mary Nunn MD Primary care physician Active Start: September 17, 2024 End: September 17, 2024 Dr. Mary Nunn MD Referring Provider Active Start: September 17, 2024 End: September 17, 2024 Dr. Vera Love MD Attending physician Active Start: September 17, 2024 End: September 17, 2024 Team Status: Inactive Member Role/Relationship Status Dates Dr. Mary Nunn MD Primary care physician Active Start: October 16, 2024 End: October 16, 2024 Dr. Mary Nunn MD Referring Provider Active Start: October 16, 2024 End: October 16, 2024 Grazyna De Leon LEGAL PROCESS SPECIALIST, LEGAL PROCESS SPECIALIST-C Attending physician Active Start: October 16, 2024 End: October 16, 2024 Team Status: Inactive Member Role/Relationship Status Dates Dr. Mary Nunn MD Primary care physician Active Start: October 16, 2024 End: October 16, 2024 America Dudley CNM Attending physician Active Start: October 16, 2024 End: October 16, 2024 Team Status: Inactive Member Role/Relationship Status Dates Dr. Mary Nunn MD Primary care physician Active Start: October 31, 2024 End: October 31, 2024 Dr. Mary Nunn MD Referring Provider Active Start: October 31, 2024 End: October 31, 2024 Dr. Vera Love MD Attending physician Active Start: October 31, 2024 End: October 31, 2024 Team Status: Inactive Member Role/Relationship Status Dates Dr. Mary Nunn MD Primary care physician Active Start: November 11, 2024 End: November 11, 2024 Dr. Vera Love MD Attending physician Active Start: November 11, 2024 End: November 11, 2024 Dr. Vera Love MD Referring Provider Active Start: November 11, 2024 End: November 11, 2024 Team Status: Inactive Member Role/Relationship Status Dates Dr. Mary Nunn MD Primary care physician Active Start: November 12, 2024 End: November 12, 2024 Dr. Mary Nunn MD Referring Provider Active Start: November 12, 2024 End: November 12, 2024 America Dudley CNM Attending physician Active Start: November 12, 2024 End: November 12, 2024 Team Status: Inactive Member Role/Relationship Status Dates Dr. Mary Nunn MD Primary care physician Active Start: November 18, 2024 End: November 18, 2024 Dr. Vera Love MD Attending physician Active Start: November 18, 2024 End: November 18, 2024 Dr. Vera Love MD Referring Provider Active Start: November 18, 2024 End: November 18, 2024 Team Status: Inactive Member Role/Relationship Status Dates Dr. Mary Nunn MD Primary care physician Active Start: November 25, 2024 End: November 25, 2024 Dr. Mary Nunn MD Referring Provider Active Start: November 25, 2024 End: November 25, 2024 Grazyna De Leon NP, LEGAL PROCESS SPECIALIST-C Attending physician Active Start: November 25, 2024 End: November 25, 2024 Team Status: Inactive Member Role/Relationship Status Dates Dr. Mary Nunn MD Primary care physician Active Start: November 25, 2024 End: November 25, 2024 America Dudley CNM Attending physician Active Start: November 25, 2024 End: November 25, 2024 America Dudley CNM Referring Provider Active S tart: November 25, 2024 End: November 25, 2024 Team Status: Inactive Member Role/Relationship Status Dates Dr. Mary Nunn MD Primary care physician Active Start: December 02, 2024 End: December 02, 2024 Dr. Mary Nunn MD Referring Provider Active Start: December 02, 2024 End: December 02, 2024 America Dudley CNM Attending physician Active Start: December 02, 2024 End: December 02, 2024 Team Status: Inactive Member Role/Relationship Status Dates Dr. Mary Nunn MD Primary care physician Active Start: December 02, 2024 End: December 02, 2024 America Dudley CNM Attending physician Active Start: December 02, 2024 End: December 02, 2024 Team Status: Inactive Member Role/Relationship Status Dates Dr. Mary Nunn MD Primary care physician Active Start: December 04, 2024 End: December 04, 2024 Dr. Vera Love MD Attending physician Active Start: December 04, 2024 End: December 04, 2024 Dr. Vera Love MD Referring Provider Active Start: December 04, 2024 End: December 04, 2024 Team Status: Inactive Member Role/Relationship Status Dates Dr. Mary Nunn MD Primary care physician Active Start: December 04, 2024 End: December 07, 2024 Dr. Vera Love MD Admitting physician Active Start: December 04, 2024 End: December 07, 2024 Dr. Vera Love MD Attending physician Active Start: December 04, 2024 End: December 07, 2024 Dr. Vera Love MD Referring Provider Active Start: December 04, 2024 End: December 07, 2024 Team Status: Active Member Role/Relationship Status Dates Dr. Mary Nunn MD Primary care physician Active Start: December 04, 2024 Dr. Vera Love MD Admitting physician Active Start: December 04, 2024 Dr. Vera Love MD Attending physician Active Start: December 04, 2024 Dr. Vera Love MD Nurse Practitioner Active Start: December 04, 2024 Team Status: Active Member Role/Relationship Status Dates Dr. Mary Nunn MD Primary care physician Active Start: December 05, 2024 Dr. Vera Love MD Admitting physician Active Start: December 05, 2024 Dr. Vera Love MD Attending physician Active Start: December 05, 2024 Dr. Vera Love MD Nurse Practitioner Active Start: December 05, 2024 Team Status: Active Member Role/Relationship Status Dates Dr. Mary Nunn MD Primary care physician Active Start: December 06, 2024 Dr. Vera Love MD Admitting physician Active Start: December 06, 2024 Dr. Vera Love MD Referring Provider Active Start: December 06, 2024 Dr. Vera Love MD Nurse Practitioner Active Start: December 06, 2024 America Dudley CNM Attending physician Active Start: December 06, 2024 Team Status: Active Member Role/Relationship Status Dates Dr. Mary Nunn MD Primary care physician Active Start: December 07, 2024 Dr. Vera Love MD Admitting physician Active Start: December 07, 2024 Dr. Vera Love MD Referring Provider Active Start: December 07, 2024 Dr. Vera Love MD Nurse Practitioner Active Start: December 07, 2024 America Dudley CNM Attending physician Active Start: December 07, 2024 FOR RECORDS PERTAINING TO PATIENTS WHO [...] BE BASED ON THE PRIMARY CLINICAL RECORDS. [employer] provides no warranty or guarantee of the accuracy or completeness of information in this document.
== END | disposition home or self-care (01) ==
PROVIDERS: PCP Internal Medicine; Visit Provider Advanced Practice Midwife
DX: E03.9 Hypothyroidism, unspecified (principal)
CPT/HCPCS: 36415; 84439; 84443